=== PATIENT | female | born 1940 | race Caucasian/White ===

== ENCOUNTER 2017-04-04 17:46 | Inpatient (IN) | payer OTHER ==
--- NOTE | 2017-04-04 18:33 | PDOC ---
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 Patients history is translated by her daughter as patient is macedonian speaking. Patient states she used albuterol and ipratropium around 2pm with no relief. Patient was at rest when her symptoms presented. Patient also states she feels congested for 1 month and has had a productive cough with green sputum. Patient denies blood in sputum. Patient states she took 2 20mg prednisone today. Patient states she is not on home oxygen. Patient states she returned from [place] yesterday. Patient states her INR has been unstable. Patient denies fevers and chills but endorses diaphoresis. Patient also endorses occasional dizziness. Patient denies headache. Patient denies chest pain and palpitations. Patient endorses dysuria since earlier today. <Yudy Gray - Last Filed: 04/04/17 19:00> <Laura Mcclain - Last Filed: 04/04/17 23:35> <Marielena Hess - Last Filed: 04/05/17 05:38> - General Chief Complaint: Shortness of Breath Stated Complaint: ASTHMA Time Seen by Provider: 04/04/17 18:32 Past History - Past Medical History Anemia: No Asthma: Yes Cancer: No Cardiac Disorders: No CVA: Yes (tia) COPD: Yes CHF: No Dementia: No Diabetes: No GI Disorders: Yes (ULCER, HERNIA) Disorders: No HTN: Yes Hypercholesterolemia: Yes Liver Disease: No Suicide Attempt (Hx): No Seizures: Yes Thyroid Disease: Yes Other medical history: dvl ble - Surgical History Abdominal Surgery: No Appendectomy: No Cardiac Surgery: No Cholecystectomy: No Lung Surgery: No Neurologic Surgery: No Orthopedic Surgery: No - Immunization History Immunization Up to Date: No - Psycho/Social/Smoking Cessation Hx Anxiety: No Suicidal Ideation: No Smoking Status: No Smoking History: Never smoked Have you smoked in the past 12 months: No Number of Cigarettes Smoked Daily: 0 Information on smoking cessation initiated: No Hx Alcohol Use: No Drug/Substance Use Hx: No Substance Use Type: None Hx Substance Use Treatment: No <Ramirez Norton - Last Filed: 04/04/17 18:32> <Yudy Gray - Last Filed: 04/04/17 19:00> <Laura Mcclain - Last Filed: 04/04/17 23:35> <Marielena Hess - Last Filed: 04/05/17 05:38> - Past Medical History Allergies/Adverse Reactions: Allergies Allergy/AdvReac Type Severity Reaction Status Date / Time Penicillins Allergy Swelling Verified 04/04/17 17:50 Home Medications: Ambulatory Orders Cholecalciferol (Vitamin D3) [Vitamin D-3] 10,000 unit PO WEEKLY 04/01/13 Montelukast Na [Singulair -] 10 mg PO HS 04/01/13 Losartan/Hydrochlorothiazide [Losartan-Hctz 100-25 mg Tablet] 1 each PO DAILY Albuterol 0.083% Nebulizer Prabha [Ventolin 0.083% Nebulizer Soln -] 1 neb NEB Q6H PRN #20 vial 07/26/16 Levetiracetam [Keppra -] 750 mg PO BID 07/26/16 Levothyroxine [Synthroid -] 25 mcg PO DAILY 07/26/16 Benzonatate [Tessalon Perle -] 200 mg PO DAILY 08/09/16 Folic Acid 1 mg PO DAILY 08/09/16 Atorvastatin Ca [Lipitor] 40 mg PO HS #30 tablet 08/11/16 Doxycycline Hyclate 100 mg PO BID #10 capsule 08/11/16 Meclizine HCl [Antivert -] 12.5 mg PO TID #15 tablet 08/11/16 Nystatin 100,000 unit PO TID 04/05/17 Prednisone [Deltasone -] 20 mg PO DAILY 04/05/17 Warfarin Sodium [Coumadin] 2 mg PO ASDIR 04/05/17 Warfarin Sodium [Coumadin] 2.5 mg PO ASDIR 04/05/17 Review of Systems - Review of Systems Able to Perform ROS?: Yes Comments:: GENERAL/CONSTITUTIONAL: (+) diaphoresis No fever or chills. No weakness. HEAD, EYES, EARS, NOSE AND THROAT: No change in vision. No ear pain or discharge. No sore throat. CARDIOVASCULAR: No chest pain or shortness of breath. RESPIRATORY: (+) productive cough, SOB No wheezing, or hemoptysis. GASTROINTESTINAL: No nausea, vomiting, diarrhea or constipation. GENITOURINARY: (=) dysuria No frequency, or change in urination. MUSCULOSKELETAL: No joint or muscle swelling or pain. No neck or back pain. SKIN: No rash NEUROLOGIC: No headache, vertigo, loss of consciousness, or change in strength/ sensation. ENDOCRINE: No increased thirst. No abnormal weight change. HEMATOLOGIC/LYMPHATIC: (+) Hx of blood clots. No anemia, easy bleeding. ALLERGIC/IMMUNOLOGIC: No hives or skin allergy. <Yudy Gray - Last Filed: 04/04/17 19:00> *Physical Exam - Vital Signs Last Vital Signs Temp Pulse Resp BP Pulse Ox 98.0 F 100 H 18 152/62 98 04/04/17 17:51 04/04/17 17:51 04/04/17 17:51 04/04/17 17:51 04/04/17 17:51 <Ramirez Norton - Last Filed: 04/04/17 18:32> - Vital Signs Last Vital Signs Temp Pulse Resp BP Pulse Ox 98.0 F 100 H 18 152/62 98 04/04/17 17:51 04/04/17 17:51 04/04/17 17:51 04/04/17 17:51 04/04/17 17:51 - Physical Exam Comments: GENERAL: Awake, alert, and fully oriented, in no acute distress HEAD: No signs of trauma EYES: PERRLA, EOMI, sclera anicteric, conjunctiva clear ENT: Auricles normal inspection, hearing grossly normal, nares patent, oropharynx clear without exudates. Moist mucosa NECK: Normal ROM, supple, no lymphadenopathy, JVD, or masses LUNGS: Breath sounds equal, clear to auscultation bilaterally. No wheezes, and no crackles HEART: Tachycardia, regular rhythm, normal S1 and S2, no murmurs, rubs or gallops ABDOMEN: Soft, nontender, normoactive bowel sounds. No guarding, no rebound. No masses EXTREMITIES: Normal range of motion, +2 pitting edema in LE bilaterally. No clubbing or cyanosis. No cords, erythema, or tenderness NEUROLOGICAL: Cranial nerves II through XII grossly intact. Normal speech, normal gait SKIN: Warm, Dry, normal turgor, no rashes or lesions noted. <Yudy Gray - Last Filed: 04/04/17 19:00> - Vital Signs Last Vital Signs Temp Pulse Resp BP Pulse Ox 98.1 F 95 H 18 141/79 100 04/04/17 21:57 04/04/17 21:57 04/04/17 21:57 04/04/17 21:57 04/04/17 21:57 <McclainLaura - Last Filed: 04/04/17 23:35> - Vital Signs Last Vital Signs Temp Pulse Resp BP Pulse Ox 98.1 F 95 H 18 141/79 100 04/04/17 21:57 04/04/17 21:57 04/04/17 21:57 04/04/17 21:57 04/04/17 21:57 <Graciela Hessreen - Last Filed: 04/05/17 05:38> ED Treatment Course - LABORATORY CBC & Chemistry Diagram: 04/04/17 19:10 04/04/17 19:10 - ADDITIONAL ORDERS Additional order review: Laboratory Results 04/04/17 04/04/17 04/04/17 19:28 19:25 19:10 INR Puncture Site Right radial ABG pH 7.41 ABG pCO2 at Pt Temp 41.4 ABG pO2 at Pt Temp 59.3 L ABG HCO3 25.6 ABG O2 Sat (Measured) 91.1 ABG O2 Content 15.4 ABG Base Excess 1.3 Hay Test Positive Carboxyhemoglobin 1.6 Methemoglobin 0.6 O2 Delivery Device Room air Oxygen Flow Rate 21 Sodium 140 Potassium 4.3 Chloride 104 Carbon Dioxide 28 Anion Gap 8 BUN 22 H D Creatinine 0.9 Creat Clearance w eGFR > 60 Random Glucose 135 H Calcium 8.6 Total Bilirubin 0.3 D AST 24 D ALT 42 D Alkaline Phosphatase 80 Creatine Kinase 91 Troponin I < 0.02 Total Protein 6.2 L Albumin 3.3 L 04/04/17 19:10 INR 3.92 H D Puncture Site ABG pH ABG pCO2 at Pt Temp ABG pO2 at Pt Temp ABG HCO3 ABG O2 Sat (Measured) ABG O2 Content ABG Base Excess Hay Test Carboxyhemoglobin Methemoglobin O2 Delivery Device Oxygen Flow Rate Sodium Potassium Chloride Carbon Dioxide Anion Gap BUN Creatinine Creat Clearance w eGFR Random Glucose Calcium Total Bilirubin AST ALT Alkaline Phosphatase Creatine Kinase Troponin I Total Protein Albumin 04/04/17 19:10 RBC 4.45 MCV 87.7 MCHC 32.0 RDW 17.2 H D MPV 8.3 Neutrophils % 88.9 H D Lymphocytes % 6.1 L D Monocytes % 4.3 Eosinophils % 0.1 D Basophils % 0.6 - Medications Given in the ED: ED Medications Discontinued Medications Generic Name Dose Route Start Last Admin Trade Name Yahaira PRN Reason Stop Dose Admin Albuterol Sulfate 2 amp 04/04/17 19:01 04/04/17 19:29 Ventolin 0.083% Nebulizer Soln - NEB 04/04/17 19:02 2 amp ONCE ONE Administration Albuterol/Ipratropium 1 amp 04/04/17 19:01 04/04/17 19:16 Duoneb - NEB 04/04/17 19:02 1 amp ONCE ONE Administration Methylprednisolone Sodium Succinate 125 mg 04/04/17 19:01 04/04/17 19:17 Solu-Medrol - IVPB 04/04/17 19:02 125 mg ONCE ONE Administration <Laura Mcclain - Last Filed: 04/04/17 23:35> - LABORATORY CBC & Chemistry Diagram: 04/04/17 19:10 04/04/17 19:10 - ADDITIONAL ORDERS Additional order review: Laboratory Results 04/04/17 04/04/17 04/04/17 19:28 19:25 19:10 INR Puncture Site Right radial ABG pH 7.41 ABG pCO2 at Pt Temp 41.4 ABG pO2 at Pt Temp 59.3 L ABG HCO3 25.6 ABG O2 Sat (Measured) 91.1 ABG O2 Content 15.4 ABG Base Excess 1.3 Hay Test Positive Carboxyhemoglobin 1.6 Methemoglobin 0.6 O2 Delivery Device Room air Oxygen Flow Rate 21 Sodium 140 Potassium 4.3 Chloride 104 Carbon Dioxide 28 Anion Gap 8 BUN 22 H D Creatinine 0.9 Creat Clearance w eGFR > 60 Random Glucose 135 H Calcium 8.6 Total Bilirubin 0.3 D AST 24 D ALT 42 D Alkaline Phosphatase 80 Creatine Kinase 91 Troponin I < 0.02 Total Protein 6.2 L Albumin 3.3 L 04/04/17 19:10 INR 3.92 H D Puncture Site ABG pH ABG pCO2 at Pt Temp ABG pO2 at Pt Temp ABG HCO3 ABG O2 Sat (Measured) ABG O2 Content ABG Base Excess Hay Test Carboxyhemoglobin Methemoglobin O2 Delivery Device Oxygen Flow Rate Sodium Potassium Chloride Carbon Dioxide Anion Gap BUN Creatinine Creat Clearance w eGFR Random Glucose Calcium Total Bilirubin AST ALT Alkaline Phosphatase Creatine Kinase Troponin I Total Protein Albumin 04/04/17 19:10 RBC 4.45 MCV 87.7 MCHC 32.0 RDW 17.2 H D MPV 8.3 Neutrophils % 88.9 H D Lymphocytes % 6.1 L D Monocytes % 4.3 Eosinophils % 0.1 D Basophils % 0.6 - RADIOLOGY Radiology Studies Ordered: Category Date Time Status CHEST CTA [CT] Stat CT Scan 04/04/17 21:54 Ordered - Medications Given in the ED: ED Medications Discontinued Medications Generic Name Dose Route Start Last Admin Trade Name Freq PRN Reason Stop Dose Admin Albuterol Sulfate 2 amp 04/04/17 19:01 04/04/17 19:29 Ventolin 0.083% Nebulizer Soln - NEB 04/04/17 19:02 2 amp ONCE ONE Administration Albuterol/Ipratropium 1 amp 04/04/17 19:01 04/04/17 19:16 Duoneb - NEB 04/04/17 19:02 1 amp ONCE ONE Administration Methylprednisolone Sodium Succinate 125 mg 04/04/17 19:01 04/04/17 19:17 Solu-Medrol - IVPB 04/04/17 19:02 125 mg ONCE ONE Administration <Marielena Hess - Last Filed: 04/05/17 05:38> Medical Decision Making - Medical Decision Making Will obtain: -CBC -BMP -PT INR -Duonabs -ABG -ECG -CXR -Blood work Will reassess. <Yudy Gray - Last Filed: 04/04/17 19:00> - Medical Decision Making 04/04/17 23:35 Patient Name: Anali Cooper PRELIMINARY REPORT FROM [facility] EXAM : CTA CHEST with contrast INDICATION: Rule out PE IMAGES: [id number] EXAM DATE AND TIME: 2017-04-04 22:13:40.0 COMPARISON: NONE FINDINGS: . Negative for pulmonary embolus to the lobar level. More distal branches are nondiagnostic because of artifact. . Pulmonary venous congestion. Perihilar predominant groundglass densities could be from early pulmonary edema. Atypical infection or inflammation not excluded. Hypoventilated lungs. . Mild cardiomegaly. Coronary artery calcifications. Aortic and branch calcifications. Thoracic aorta without aneurysm or dissection. No chest adenopathy. No pleural effusion or pneumothorax. Calcified granuloma left lung. . Upper abdomen and osseous structures without acute abnormality. THIS DOCUMENT HAS BEEN ELECTRONICALLY SIGNED Tu Cain D.O. 04/04/2017 23:02 EST <Laura Mcclain - Last Filed: 04/04/17 23:35> - Medical Decision Making 04/04/17 21:59 Pt remains SOB, yet comfortable. She is from [place] and is lives in [place] and [facility]. SHe has no PMD here. She was recently on an 8 hr flight. Now with green discharge from her nasal sinuses. She has no calf swelling, but she complains of minimal pain in the left medial calf. Pt has a pulsox that shows hypoxemia. SHe has coumadin therapy for prior medical issues and her INR is 3+; essentially therapeutic for PE/DVT. Pt is PCN allergic and so she will be started on doxy for sinusitis/pneumonia. CTA ordered to r/o PE. Bun/Cr are normal range. Pt has rhonchi on the right chest; relatively clear on the left chest. 04/05/17 05:37 Patient Name: Anali Cooper PRELIMINARY REPORT FROM [facility] EXAM : CTA CHEST with contrast INDICATION: Rule out PE IMAGES: [id number] EXAM DATE AND TIME: 2017-04-04 22:13:40.0 COMPARISON: NONE FINDINGS: . Negative for pulmonary embolus to the lobar level. More distal branches are nondiagnostic because of artifact. . Pulmonary venous congestion. Perihilar predominant groundglass densities could be from early pulmonary edema. Atypical infection or inflammation not excluded. Hypoventilated lungs. . Mild cardiomegaly. Coronary artery calcifications. Aortic and branch calcifications. Thoracic aorta without aneurysm or dissection. No chest adenopathy. No pleural effusion or pneumothorax. Calcified granuloma left lung. . Upper abdomen and osseous structures without acute abnormality. THIS DOCUMENT HAS BEEN ELECTRONICALLY SIGNED Pt has no PE; she will be admitted for atypical pneumonia and IV abx; hospitalist aware. <Marielena Hess - Last Filed: 04/05/17 05:38> *DC/Admit/Observation/Transfer - Attestations Physician Attestion: 04/04/17 18:33 I, Dr. Ramirez Norton, attest that this document has been prepared under my direction and personally reviewed by me in its entirety. I further attest, that it accurately reflects all work, treatment, procedures and medical decision -making performed by me. <Ramirez Norton - Last Filed: 04/04/17 18:32> - Attestations Scribe Attestion: Documentation prepared by Yudy Gray, acting as medical support assistant for Ramirez Norton MD/DO. <Yudy Gray - Last Filed: 04/04/17 19:00> <Laura Mcclain - Last Filed: 04/04/17 23:35> - Discharge Dispostion Admit: Yes <Marielena Hess - Last Filed: 04/05/17 05:38> Diagnosis at time of Disposition: Atypical pneumonia, Dyspnea and respiratory abnormalities - Discharge Dispostion Condition at time of disposition: Guarded
[2017-04-04] MEDS ORDERED: ALBUTEROL SO4 0.083% IH SOL 2.5 MG/3 ML VIAL.NEB. NEB ONE ×2 (19:01→19:12)
[2017-04-04] MEDS ORDERED: methylPREDNISolone NA SUCC 125 MG/2 ML VIAL IVPB ONE (19:01)
[2017-04-04] MEDS ORDERED: ALBUTEROL SO4 2.5/IPRATROPIUM 0.5 INH SOL 3 ML VIAL.NEB. NEB ONE ×2 (19:01→19:12)
[2017-04-04] MEDS ORDERED: methylPREDNISolone NA SUCC 125 MG/2 ML VIAL ONE (19:12)
[2017-04-04 19:19] LABS: BASOPHIL 0.6 % (0-2.0); EOSINOPHIL 0.1 % (0-4.5); MCH 28.1 pg (25.7-33.7); MEAN CELL VOLUME 87.7 fl (80-96); MEAN PLT VOLUME 8.3 fl (7.5-11.1); NEUTROPHILS 88.9 % (42.8-82.8); PLATELET COUNT 228 K/MM3 (134-434); RDW 17.2 % (11.6-15.6)
[2017-04-04 19:33] LABS: ARTERIAL BLD GAS O2 SATURATION 91.1 % (90-98.9); ARTERIAL BLOOD GAS BASE EXCESS 1.3 meq/l (-2-2); ARTERIAL BLOOD GAS HCO3 25.6 meq/L (22-26); ARTERIAL BLOOD GAS pH 7.41 (7.35-7.45)
[2017-04-04 19:35] LABS: ALLENS TEST POSITIVE; ART PUNCT SITE RIGHT RADIAL; LPM/O2% 21; PT. ON O2? NO; TYPE OF O2 ROOM AIR
[2017-04-04 19:36] LABS: ARTERIAL BLOOD GAS PO2 59.3 mmHg (70-100)
[2017-04-04 19:38] LABS: METHEMOGLOBIN 0.6 % (0.4-1.5)
[2017-04-04 19:40] LABS: INR 3.92 (0.82-1.09); PROTHROMBIN TIME (PATIENT) 44.3 SEC (9.98-11.88)
[2017-04-04 19:46] LABS: ALBUMIN 3.3 g/dl (3.4-5.0); ANION GAP 8 (8-16); BILIRUBIN,TOTAL 0.3 mg/dL (0.2-1.0); CALCIUM 8.6 mg/dL (8.5-10.1); CO2 28 mmol/L (21-32); CREATININE 0.9 mg/dL (0.55-1.02); GLUCOSE,RANDOM 135 mg/dL (74-106); SGOT/AST 24 U/L (15-37); SGPT/ALT 42 U/L (12-78); TOT PROT 6.2 g/dl (6.4-8.2)
[2017-04-04 19:48] LABS: ALK PHOS 80 U/L (45-117); TROPONIN I < 0.02 ng/ml (0.00-0.05)
[2017-04-04] MEDS ORDERED: DOXYCYCLINE INJECTION 100 MG in DEXTROSE 5%-WATER - 150 ML IVPB ONE (21:55)
[2017-04-04] MEDS ORDERED: DOXYCYCLINE HYCLATE 100 MG VIAL ONE (22:01)
--- NOTE | 2017-04-04 23:40 | HP ---
CHIEF COMPLAINT: SOB, Nasal Congestion PCP: Not on Staff HISTORY OF PRESENT ILLNESS: This is a 76 y/o female with a past medical history of Asthma, HTN, HLD,DVTs ( on Coumadin), Seizure Disorder, PUD. Who presents to the emergency department with SOB x today. Patient is Latvian speaking her daughter was at bedside and translated. Patient reports SOB and dizziness this am. Patient reports having chronic rhinnorhea- green x 3 months with improvement. Patient used her nebulizer with little relief. Patient who is from [place], reports recent hospital stay- Observation 03/25 for Sinusitis, Rx Doxycycline currently taking. Patient denies fever, chills, CP, AP, N/V/D, constipation, dysuria. ER course was notable for: (1) CTA- neg PE, ? early Pneumonia (2) WBC 13.0 (3) ABG- PO2 59 Recent Travel: [place] last PAST MEDICAL HISTORY: Asthma HTn HLD DVTs PAST SURGICAL HISTORY: Breast Biopsy Hysterectomy Social History: Smoking: Never Alcohol: Denies Drugs: Denies Lives alone in [place], retired Family History: Allergies Penicillins Allergy (Verified 04/04/17 17:50) Swelling HOME MEDICATIONS: Home Medications Medication Instructions Recorded Cholecalciferol (Vitamin D3) 10,000 unit PO WEEKLY 04/01/13 [Vitamin D-3] Montelukast Na [Singulair -] 10 mg PO HS 04/01/13 Losartan/Hydrochlorothiazide 1 each PO DAILY 08/28/13 [Losartan-Hctz 100-25 mg Tablet] Albuterol 0.083% Nebulizer Prabha 1 neb NEB Q6H PRN #20 vial 07/26/16 [Ventolin 0.083% Nebulizer Soln -] Levetiracetam [Keppra -] 750 mg PO BID 07/26/16 Levothyroxine [Synthroid -] 25 mcg PO DAILY 07/26/16 Benzonatate [Tessalon Perle -] 200 mg PO DAILY 08/09/16 Folic Acid 1 mg PO DAILY 08/09/16 Atorvastatin Ca [Lipitor] 40 mg PO HS #30 tablet 08/11/16 Doxycycline Hyclate 100 mg PO BID #10 capsule 08/11/16 Meclizine HCl [Antivert -] 12.5 mg PO TID #15 tablet 11/15/16 Warfarin Sodium [Coumadin] 1 mg PO ASDIR #30 tablet 08/11/16 Warfarin Sodium [Coumadin] 2 mg PO ASDIR #30 tablet 08/11/16 REVIEW OF SYSTEMS CONSTITUTIONAL: Absent: fever, chills, diaphoresis, generalized weakness, malaise, loss of appetite, weight change HEENT: rhinorrhea Absent: rhinorrhea, nasal congestion, throat pain, throat swelling, difficulty swallowing, mouth swelling, ear pain, eye pain, visual changes CARDIOVASCULAR: Absent: chest pain, syncope, palpitations, irregular heart rate, lightheadedness , peripheral edema RESPIRATORY: cough, shortness of breath Absent: dyspnea with exertion, orthopnea, wheezing, stridor, hemoptysis GASTROINTESTINAL: Absent: abdominal pain, abdominal distension, nausea, vomiting, diarrhea, constipation, melena, hematochezia GENITOURINARY: Absent: dysuria, frequency, urgency, hesitancy, hematuria, flank pain, genital pain MUSCULOSKELETAL: Absent: myalgia, arthralgia, joint swelling, back pain, neck pain SKIN: Absent: rash, itching, pallor HEMATOLOGIC/IMMUNOLOGIC: Absent: easy bleeding, easy bruising, lymphadenopathy, frequent infections ENDOCRINE: Absent: unexplained weight gain, unexplained weight loss, heat intolerance, cold intolerance NEUROLOGIC: dizziness Absent: headache, focal weakness or paresthesias, unsteady gait, seizure, mental status changes, bladder or bowel incontinence PSYCHIATRIC: Absent: anxiety, depression, suicidal or homicidal ideation, hallucinations. PHYSICAL EXAMINATION Vital Signs - 24 hr 04/04/17 04/04/17 04/04/17 17:51 19:05 21:57 Temperature 98.0 F 98.1 F Pulse Rate 100 H 91 H Pulse Rate [ 91 H 95 H Right Apical] Respiratory 18 16 18 Rate Blood Pressure 152/62 Blood Pressure 113/67 141/79 [Left] O2 Sat by Pulse 98 96 100 Oximetry (%) GENERAL: Awake, alert, and fully oriented, in no acute distress. HEAD: Normal with no signs of trauma. EYES: Pupils equal, round and reactive to light, extraocular movements intact, sclera anicteric, conjunctiva clear. No lid lag. EARS, NOSE, THROAT: Ears normal, nares patent, oropharynx clear without exudates. Mild erythema to r-nare Dry mucous membranes. NECK: Normal range of motion, supple without lymphadenopathy, JVD, or masses. LUNGS: Breath sounds equal, clear to auscultation bilaterally. No wheezes, and no crackles. No accessory muscle use. HEART: Regular rate and rhythm, normal S1 and S2. No rub or gallop. Grade 2/6 systolic murmur ABDOMEN: Soft, nontender, not distended, normoactive bowel sounds, no guarding, no rebound, no masses. No hepatomegaly or splenomegaly. MUSCULOSKELETAL: Normal range of motion at all joints. No bony deformities or tenderness. No CVA tenderness. UPPER EXTREMITIES: 2+ pulses, warm, well-perfused. No cyanosis. No clubbing. No peripheral edema. LOWER EXTREMITIES: 2+ pulses, warm, well-perfused. No calf tenderness. +1 B/L peripheral edema. NEUROLOGICAL: Cranial nerves II-XII intact. Normal speech. Gait not observed. PSYCHIATRIC: Cooperative. Good eye contact. Appropriate mood and affect. SKIN: Warm, dry, normal turgor, no rashes or lesions noted, normal capillary refill. Laboratory Results - last 24 hr 04/04/17 04/04/17 04/04/17 19:10 19:10 19:10 WBC 13.0 H RBC 4.45 Hgb 12.5 Hct 39.1 MCV 87.7 MCH 28.1 MCHC 32.0 RDW 17.2 H D Plt Count 228 MPV 8.3 Neutrophils % 88.9 H D Lymphocytes % 6.1 L D Monocytes % 4.3 Eosinophils % 0.1 D Basophils % 0.6 INR 3.92 H D Puncture Site ABG pH ABG pCO2 at Pt Temp ABG pO2 at Pt Temp ABG HCO3 ABG O2 Sat (Measured) ABG O2 Content ABG Base Excess Hay Test Carboxyhemoglobin Methemoglobin O2 Delivery Device Oxygen Flow Rate Sodium 140 Potassium 4.3 Chloride 104 Carbon Dioxide 28 Anion Gap 8 BUN 22 H D Creatinine 0.9 Creat Clearance w eGFR > 60 Random Glucose 135 H Calcium 8.6 Total Bilirubin 0.3 D AST 24 D ALT 42 D Alkaline Phosphatase 80 Creatine Kinase 91 Troponin I < 0.02 Total Protein 6.2 L Albumin 3.3 L 04/04/17 04/04/17 19:25 19:28 WBC RBC Hgb Hct MCV MCH MCHC RDW Plt Count MPV Neutrophils % Lymphocytes % Monocytes % Eosinophils % Basophils % INR Puncture Site Right radial ABG pH 7.41 ABG pCO2 at Pt Temp 41.4 ABG pO2 at Pt Temp 59.3 L ABG HCO3 25.6 ABG O2 Sat (Measured) 91.1 ABG O2 Content 15.4 ABG Base Excess 1.3 Hay Test Positive Carboxyhemoglobin 1.6 Methemoglobin 0.6 O2 Delivery Device Room air Oxygen Flow Rate 21 Sodium Potassium Chloride Carbon Dioxide Anion Gap BUN Creatinine Creat Clearance w eGFR Random Glucose Calcium Total Bilirubin AST ALT Alkaline Phosphatase Creatine Kinase Troponin I Total Protein Albumin - RADIOLOGY 04/04/17 23:35 Patient Name: Anali Cooper PRELIMINARY REPORT FROM [facility] EXAM : CTA CHEST with contrast INDICATION: Rule out PE IMAGES: [id number] EXAM DATE AND TIME: 2017-04-04 22:13:40.0 COMPARISON: NONE FINDINGS: . Negative for pulmonary embolus to the lobar level. More distal branches are nondiagnostic because of artifact. . Pulmonary venous congestion. Perihilar predominant groundglass densities could be from early pulmonary edema. Atypical infection or inflammation not excluded. Hypoventilated lungs. . Mild cardiomegaly. Coronary artery calcifications. Aortic and branch calcifications. Thoracic aorta without aneurysm or dissection. No chest adenopathy. No pleural effusion or pneumothorax. Calcified granuloma left lung. . Upper abdomen and osseous structures without acute abnormality. THIS DOCUMENT HAS BEEN ELECTRONICALLY SIGNED Tu Cain D.O. 04/04/2017 23:02 EST ASSESSMENT/PLAN: This is a 76 y/o with a PMHx of: Asthma, HTN, HLD, Seizures, DVTs (on Coumadin) . Presents to the ED SOB, Cough, Rhinnorhea. Admitted M/S Atypical Pneumonia for further evaluation of their emergent condition. 1. Atypical Pneumonia - Likely secondary to bacterial infection - [id number] Score 2 - WBC 13.0 - Blood Culture-pending - Lactic Acid-pending - Appreciate ID Consult - Will d/c Doxycycline and start Levaquin for pseudomonal coverage - Monitor CBC - Urine Legionella - Sputum Culture - Monitor vitals 2. Hypoxemia - Likely secondary to Chronic lung disease - Spo2 98-100% RA - Continue to monitor, treat accordingly 3. Asthma - Duonebs - Continue home meds 4. Supratherapuetic INR - Series INRs - Hold Coumadin till 2.0-3.0 for DVT/PE 5. DVTs - INR 3.92 - Coumadin held tonight - Monitor INRs 6. Hypertension - Controlled - Monitor BP - Continue home meds 7. Hyperlipidemia - Continue home meds - Monitor LFTs 8. Seizures - Stable - Continue Keppra - Seizure Precautions 9. FEN - Tolerates PO Fluids - Replete lytes prn - Low Na, Low Cholesterol Diet 10. DVT Prophylaxis - OOB - SCDs - Hold ACs secondary to Supratherapuetic INR Code Status: Full Code Dispo: Requires Inpatient Care Problem List - Problem (1) Atypical pneumonia Code(s): J18.9 - PNEUMONIA, UNSPECIFIED ORGANISM (2) Dyspnea and respiratory abnormalities Code(s): R06.00 - DYSPNEA, UNSPECIFIED R06.89 - OTHER ABNORMALITIES OF BREATHING (3) Sinusitis Code(s): J32.9 - CHRONIC SINUSITIS, UNSPECIFIED (4) Hypertension Code(s): I10 - ESSENTIAL (PRIMARY) HYPERTENSION (5) DVT (deep venous thrombosis) Code(s): I82.409 - ACUTE EMBOLISM AND THOMBOS UNSP DEEP VN UNSP LOWER EXTREMITY (6) Seizure disorder Code(s): G40.909 - EPILEPSY, UNSP, NOT INTRACTABLE, WITHOUT STATUS EPILEPTICUS (7) Hyperlipemia Code(s): E78.5 - HYPERLIPIDEMIA, UNSPECIFIED (8) DVT prophylaxis Code(s): MUG9419 - Visit type - Emergency Visit Emergency Visit: Yes ED Registration Date: 04/04/17 Care time: The patient presented to the Emergency Department on the above date and was hospitalized for further evaluation of their emergent condition. - New Patient This patient is new to me today: Yes Date on this admission: 04/04/17 - Critical Care Critical Care patient: No
[2017-04-04] MEDS ORDERED: ALBUTEROL SO4 0.083% IH SOL 2.5 MG/3 ML VIAL.NEB. NEB PRN (23:47)
[2017-04-04] MEDS ORDERED: ALBUTEROL SO4 2.5/IPRATROPIUM 0.5 INH SOL 3 ML VIAL.NEB. NEB PRN (23:53)
[2017-04-05] MEDS ORDERED: AZITHROMYCIN IVPB 250 ML IVPB SCH (02:00)
[2017-04-05] MEDS ORDERED: SODIUM CHLORIDE 1,000 ML IV STA ×2 (02:45→16:49)
[2017-04-05] MEDS ORDERED: SODIUM CHLORIDE 500 ML IV STA ×3 (02:47→07:17)
[2017-04-05] MEDS: LEVOTHYROXINE NA 25 MCG TABLET (FP) PO SCH (06:05)
[2017-04-05] MEDS: NYSTATIN 500,000 UNITS/5 ML SUSPENSION PO SCH ×3 (06:05→21:11)
[2017-04-05 06:22] LABS: BASOPHIL 0.4 % (0-2.0); MCH 28.4 pg (25.7-33.7); MCHC 32.3 g/dl (32.0-36.0); MEAN CELL VOLUME 87.9 fl (80-96); MEAN PLT VOLUME 8.4 fl (7.5-11.1); NEUTROPHILS 91.6 % (42.8-82.8); PLATELET COUNT 259 K/MM3 (134-434); RDW 17.7 % (11.6-15.6); WHITE BLOOD COUNT 13.7 K/mm3 (4.0-10.0)
[2017-04-05] MEDS ORDERED: FUROSEMIDE 40 MG/4 ML INJECTABLE VIAL IVPUSH ONE (08:15)
[2017-04-05] MEDS: methylPREDNISolone NA SUCC 40 MG/1 ML VIAL IVPB SCH ×3 (08:33→21:10)
[2017-04-05 08:48] LABS: INR 3.51 (0.82-1.09); PROTHROMBIN TIME (PATIENT) 39.6 SEC (9.98-11.88)
[2017-04-05 09:57] LABS: ALBUMIN 3.2 g/dl (3.4-5.0); ANION GAP 8 (8-16); BILIRUBIN,TOTAL 0.4 mg/dL (0.2-1.0); CALCIUM 8.9 mg/dL (8.5-10.1); CO2 28 mmol/L (21-32); CREATININE 0.9 mg/dL (0.55-1.02); GLUCOSE,RANDOM 143 mg/dL (74-106); SGOT/AST 20 U/L (15-37); SGPT/ALT 40 U/L (12-78); TOT PROT 6.4 g/dl (6.4-8.2)
[2017-04-05] MEDS ORDERED: levETIRAcetam 500 MG TABLET (FP) PO SCH (10:00)
[2017-04-05] MEDS ORDERED: LEVOFLOXACIN 750 MG IVPB 150 ML IVPB SCH (10:00)
[2017-04-05] MEDS ORDERED: DOXYCYCLINE INJECTION 100 MG in DEXTROSE 5%-WATER - 100 ML IVPB SCH (10:00)
[2017-04-05] MEDS ORDERED: predniSONE 20 MG TABLET (UD) PO SCH (10:00)
[2017-04-05 10:06] LABS: ALK PHOS 75 U/L (45-117); THYROID STIMULATING HORMONE 0.34 uIU/ml (0.358-3.74)
[2017-04-05] MEDS ORDERED: levETIRAcetam 250 MG TABLET (FP) PO ONE ×2 (10:22→21:07)
[2017-04-05] MEDS ORDERED: levETIRAcetam 500 MG TABLET (FP) PO ONE ×2 (10:22→21:07)
[2017-04-05] MEDS: FOLIC ACID 1 MG TABLET (FP) PO SCH (10:27)
[2017-04-05] MEDS: HYDROCHLOROTHIAZIDE 25 MG TABLET (FP) PO SCH (10:27)
[2017-04-05] MEDS: LEVETIRACETAM 250 MG, LEVETIRACETAM 500 MG PO SCH ×2 (10:27→21:12)
[2017-04-05] MEDS: LOSARTAN POTASSIUM 50 MG TABLET (FP) PO SCH (10:27)
--- NOTE | 2017-04-05 10:32 | EKG ---
Test Reason : Blood Pressure : / mmHG Vent. Rate : 086 BPM Atrial Rate : 086 BPM P-R Int : 116 ms QRS Dur : 068 ms QT Int : 362 ms P-R-T Axes : 034 001 016 degrees QTc Int : 433 ms POOR DATA QUALITY, INTERPRETATION MAY BE ADVERSELY AFFECTED NORMAL SINUS RHYTHM NORMAL ECG WHEN COMPARED WITH ECG OF 09-AUG-2016 09:31, PREMATURE ATRIAL COMPLEXES ARE NO LONGER PRESENT Confirmed by ARTURO GUTIÉRREZ, GIANNA ([id number]) on 04/05/2017 10:31:54 AM Referred By: Confirmed By:GIANNA MORRIS MD
--- NOTE | 2017-04-05 11:14 | PN ---
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 She reports having fullness in her sinuses. Current Medications Generic Name Dose Route Start Last Admin Trade Name Yahaira PRN Reason Stop Dose Admin Albuterol/Ipratropium 1 amp 04/05/17 12:00 Duoneb - NEB QIDR LUIZA Atorvastatin Calcium 40 mg 04/05/17 22:00 Lipitor - PO HS LUIZA Folic Acid 1 mg 04/05/17 10:00 04/05/17 10:27 Folic Acid - PO 1 mg DAILY LUIZA Administration Hydrochlorothiazide 25 mg 04/05/17 10:00 04/05/17 10:27 Hctz - PO 25 mg DAILY LUIZA Administration Levofloxacin 150 mls @ 100 mls/hr 04/05/17 10:00 04/05/17 10:25 Levaquin 750 Mg Premixed Ivpb - IVPB 100 mls/hr DAILY LUIZA Administration Sodium Chloride 500 mls @ 75 mls/hr 04/05/17 07:17 04/05/17 08:29 Normal Saline - IV 04/05/17 13:56 75 mls/hr ASDIR STA Administration Levetiracetam 250 mg/ 750 mg 04/05/17 10:00 04/05/17 10:27 Levetiracetam 500 mg PO 750 mg BID LUIZA Administration Levothyroxine Sodium 25 mcg 04/05/17 07:00 04/05/17 06:05 Synthroid - PO 25 mcg DAILY@0700 LUIZA Administration Losartan Potassium 100 mg 04/05/17 10:00 04/05/17 10:27 Cozaar - PO 100 mg DAILY LUIZA Administration Methylprednisolone Sodium Succinate 40 mg 04/05/17 09:00 04/05/17 08:33 Solu-Medrol - IVPB 40 mg Q6H-IV LUIZA Administration Montelukast Sodium 10 mg 04/05/17 22:00 Singulair - PO HS LUIZA Non-Formulary Medication 200 mg 04/05/17 10:00 Benzonatate PO DAILY LUIZA Nystatin 100,000 units 04/05/17 06:00 04/05/17 06:05 Nystatin Oral Suspension - PO 100,000 units TID LUIZA Administration Objective: Vital Signs Period Temp Pulse Resp BP Sys/Sexton Pulse Ox Last 24 Hr 98.0 F-98.2 F 63-100 16-20 113-152/62-79 96-100 Physical Exam: General: cameroonian speaking, NAD HEENT: Frontal and maxillary sinus tenderness Lungs: B/l end expiratory wheezing Heart: RRR, S1S2 Abd: Soft, non-tender, non-distended. Normoactive bowel sounds Neuro: No focal deficits CBCD WBC 13.7 K/mm3 (4.0-10.0) H 04/05/17 05:40 RBC 4.44 M/mm3 (3.60-5.2) 04/05/17 05:40 Hgb 12.6 GM/dL (10.7-15.3) 04/05/17 05:40 Hct 39.1 % (32.4-45.2) 04/05/17 05:40 MCV 87.9 fl (80-96) 04/05/17 05:40 MCHC 32.3 g/dl (32.0-36.0) 04/05/17 05:40 RDW 17.7 % (11.6-15.6) H 04/05/17 05:40 Plt Count 259 K/MM3 (134-434) 04/05/17 05:40 MPV 8.4 fl (7.5-11.1) 04/05/17 05:40 CMP Sodium 140 mmol/L (136-145) 04/05/17 07:55 Potassium 4.9 mmol/L (3.5-5.1) 04/05/17 07:55 Chloride 104 mmol/L (98-107) 04/05/17 07:55 Carbon Dioxide 28 mmol/L (21-32) 04/05/17 07:55 Anion Gap 8 (8-16) 04/05/17 07:55 BUN 16 mg/dL (7-18) D 04/05/17 07:55 Creatinine 0.9 mg/dL (0.55-1.02) 04/05/17 07:55 Creat Clearance w eGFR > 60 (>60) 04/05/17 07:55 Random Glucose 143 mg/dL (74-106) H 04/05/17 07:55 Calcium 8.9 mg/dL (8.5-10.1) 04/05/17 07:55 Total Bilirubin 0.4 mg/dL (0.2-1.0) D 04/05/17 07:55 AST 20 U/L (15-37) 04/05/17 07:55 ALT 40 U/L (12-78) 04/05/17 07:55 Alkaline Phosphatase 75 U/L (45-117) 04/05/17 07:55 Total Protein 6.4 g/dl (6.4-8.2) 04/05/17 07:55 Albumin 3.2 g/dl (3.4-5.0) L 04/05/17 07:55 CARDIAC ENZYMES Creatine Kinase 91 IU/L (26-192) 04/04/17 19:10 Troponin I < 0.02 ng/ml (0.00-0.05) 04/04/17 19:10 Assessment: This is a 76 year old female with PMHx HTN, hyperlipidemia, asthma, 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 Plan: 1) ID: Sepsis 2/2 probable atypical pneumonia vs. sinusitis - Elevated WBC (infectious vs. steroid induced) - Lactic acidosis, continue IV fluids and monitor lung function closely - Sinus tenderness - Continue Levaquin - F/u sputum culture - F/u ID consult 2) Pulmonary: Acute asthma exacerbation - Chest CTA with perihilar predominant groundglass densities noted which could be from early pulmonary edema. Atypical infection/inflammation cannot be excluded. No gross pulmonary embolism is seen - Started on Solumedrol 40mg IVPB q8h - Duonebs - Patient takes Advair 500/50 bid, will start Symbicort while here in the hospital as Advair is non-formulary - Continue Singulair - O2 via NC prn - F/u pulmonary consult 3) Cardiology: Hx of multiple DVTs - On Coumadin at home, now with supratherapeutic INR - Hold Coumadin, restart once INR <3 HTN - Continue Losartan - Continue Hctz Hyperlipidemia - Continue Lipitor 4) Neuro: Seizure disorder - Continue Keppra 5) F/E/N: - Monitor electrolytes - Low sodium diet 6) Prophylaxis: - OOB ambulating - Hold all chemical DVT prophylaxis for supratherapeutic INR 7) Dispo: - Requires continued inpatient care CODE STATUS: FULL CODE Visit type - Emergency Visit Emergency Visit: Yes ED Registration Date: 04/04/17 Care time: The patient presented to the Emergency Department on the above date and was hospitalized for further evaluation of their emergent condition. - New Patient This patient is new to me today: Yes Date on this admission: 04/05/17 - Critical Care Critical Care patient: No
[2017-04-05] MEDS: ALBUTEROL SO4 2.5/IPRATROPIUM 0.5 INH SOL 3 ML VIAL.NEB. NEB SCH ×3 (11:22→23:47)
--- NOTE | 2017-04-05 14:29 | PN ---
Progress Note (short form) - Note Progress Note: PULMONARY CONSULTATION DICTATED 04/05/17 IMP ACUTE HYPOXEMIC RESPIRATORY FAILURE BILATERAL GROUND GLASS INFILTRATES ASTHMA EXACERBATION SINUSITIS H/O RECURRENT DVTS HTN HYPOTHYROID PUD PLAN IV ANTIBIOTICS INHALED BRONCHODILATORS IV STEROIDS SUPPLEMENTAL O2 SPUTUM C+S F/U CHEST X-RAY DR FLORES Problem List - Problems (1) Atypical pneumonia Code(s): J18.9 - PNEUMONIA, UNSPECIFIED ORGANISM (2) DVT prophylaxis Code(s): TCQ7682 - (3) Dyspnea and respiratory abnormalities Code(s): R06.00 - DYSPNEA, UNSPECIFIED R06.89 - OTHER ABNORMALITIES OF BREATHING (4) DVT (deep venous thrombosis) Code(s): I82.409 - ACUTE EMBOLISM AND THOMBOS UNSP DEEP VN UNSP LOWER EXTREMITY (5) Hyperlipemia Code(s): E78.5 - HYPERLIPIDEMIA, UNSPECIFIED (6) Hypertension Code(s): I10 - ESSENTIAL (PRIMARY) HYPERTENSION (7) Acute hypoxemic respiratory failure Code(s): J96.01 - ACUTE RESPIRATORY FAILURE WITH HYPOXIA
--- NOTE | 2017-04-05 17:51 | CONSULT ---
Consult Consult Specialty:: infectious diseases Reason for Consultation:: pneumonia - History of Present Illness Chief Complaint: weakness,cough,not feeling well History of Present Illness: 76 y/o female with a past medical history of Asthma, HTN, HLD,DVTs , Seizure Disorder, PUD. admitted with SOB Patient is Setswana speaking her daughter was at bedside and translated. Patient reports SOB and dizziness this am. . Patient used her nebulizer with little relief. Patient who is from [place], reports recent hospital stay- Observation 03/25 for Sinusitis, Rx Doxycycline currently taking. Patient denies fever, chills, CP, AP, N/V/D, constipation, dysuria. according to the daughter patient now mentions she has been sick for couple of days before coming from [place] and did not go to the hospital because she did not want to bother her son. she mentions that the patient is producing greenish sputum i ahve seen her work up and i have noticed that her wbc has increased as well as her lactic acid is still on the higher side also looks like her tongue is dry and has fungal infection patient mentions she has had rhinorrea for some time now and the color of it was green - History Source History Provided By: Family Member Limitations to Obtaining History: Language Barrier - Past Medical History [employer]: Yes: CVA, Seizure ( last seizure >10yrs ago), Vertigo Cardio/Vascular: Yes: HTN Pulmonary: Yes: Asthma Gastrointestinal: Yes: Gastritis, Peptic Ulcer Disease Musculoskeletal: Yes: Other (arthritis (type not specificed)) ENT: Yes: Sinusitis Endocrine: Yes: Hypothyroidism Additional Medical History: DVTs, HPL - Past Surgical History Past Surgical History: Yes: Breast Biopsy, Hysterectomy - Alcohol/Substance Use Hx Alcohol Use: No History of Substance Use: reports: None - Smoking History Smoking history: Never smoked Have you smoked in the past 12 months: No Aproximately how many cigarettes per day: 0 - Social History Occupation: retired 20 yrs ago History of Recent Travel: Yes (traveled from [place]) Home Medications - Allergies Allergies/Adverse Reactions: Allergies Allergy/AdvReac Type Severity Reaction Status Date / Time Penicillins Allergy Swelling Verified 04/04/17 17:50 - Home Medications Home Medications: Ambulatory Orders Cholecalciferol (Vitamin D3) [Vitamin D-3] 10,000 unit PO WEEKLY 04/01/13 Montelukast Na [Singulair -] 10 mg PO HS 04/01/13 Losartan/Hydrochlorothiazide [Losartan-Hctz 100-25 mg Tablet] 1 each PO DAILY Albuterol 0.083% Nebulizer Prabha [Ventolin 0.083% Nebulizer Soln -] 1 neb NEB Q6H PRN #20 vial 07/26/16 Levetiracetam [Keppra -] 750 mg PO BID 07/26/16 Levothyroxine [Synthroid -] 25 mcg PO DAILY 07/26/16 Benzonatate [Tessalon Perle -] 200 mg PO DAILY 08/09/16 Folic Acid 1 mg PO DAILY 08/09/16 Atorvastatin Ca [Lipitor] 40 mg PO HS #30 tablet 08/11/16 Doxycycline Hyclate 100 mg PO BID #10 capsule 08/11/16 Meclizine HCl [Antivert -] 12.5 mg PO TID #15 tablet 08/11/16 Nystatin 100,000 unit PO TID 04/05/17 Prednisone [Deltasone -] 20 mg PO DAILY 04/05/17 Warfarin Sodium [Coumadin] 2 mg PO ASDIR 04/05/17 Warfarin Sodium [Coumadin] 2.5 mg PO ASDIR 04/05/17 Family Disease History - Family Disease History Family Disease History: Diabetes: Father ( of SD), Mother ( of uterine cancer), Heart Disease: Father, Respiratory: Sister (asthma) Review of Systems - Review of Systems Constitutional: reports: Lethargy, Weakness Eyes: reports: No Symptoms HENT: reports: Nasal Congestion Neck: reports: No Symptoms Cardiovascular: reports: No Symptoms Respiratory: reports: Cough, SOB, Other Gastrointestinal: reports: No Symptoms Genitourinary: reports: No Symptoms Musculoskeletal: reports: No Symptoms Integumentary: reports: No Symptoms Neurological: reports: No Symptoms Endocrine: reports: No Symptoms Hematology/Lymphatic: reports: No Symptoms Psychiatric: reports: No Symptoms Physical Exam Vital Signs: Vital Signs Temperature 98.1 F 04/05/17 14:12 Pulse Rate 99 H 04/05/17 14:12 Respiratory Rate 20 04/05/17 14:12 Blood Pressure 136/66 04/05/17 14:12 O2 Sat by Pulse Oximetry (%) 95 04/05/17 09:00 Constitutional: Yes: Well Nourished, Calm, Mild Distress Eyes: Yes: Conjunctiva Clear HENT: Yes: Other (tenderness on the frontal sinus) Neck: Yes: Supple, Trachea Midline Cardiovascular: Yes: Regular Rate and Rhythm, S1, S2 Respiratory: Yes: Regular, On Nasal O2, Rhonchi Gastrointestinal: Yes: Normal Bowel Sounds, Soft Extremities: Yes: WNL Integumentary: Yes: WNL Neurological: Yes: Alert, Oriented Psychiatric: Yes: Alert, Oriented Labs: CBC, BMP 04/05/17 07:55 04/05/17 07:55 Imaging - Results Chest X-ray: Report Reviewed, Image Reviewed Cat Scan: Report Reviewed, Image Reviewed Assessment/Plan i ahambika looked at her cx report and also her leg and strp are negative looked at sputum cx 76 y/o with a PMHx of: Asthma, HTN, HLD, Seizures, DVTs (on Coumadin). Presents to the ED SOB, Cough, Rhinnorhea. Admitted M/S Atypical Pneumonia for further evaluation of their emergent condition. 1. Atypical Pneumonia 2. Hypoxemia 3. Asthma 4. Supratherapuetic INR 5. DVTs 6. Hypertension 7. Hyperlipidemia 8. Seizures 9 leukocytosis 10 lactic acidosis 11 thrush patient has receive doxy and levaquin and still she is not showing s/o of improvement plan will start patient on vanco and aztreonam also nystatin swish and spit continue to monitor wbc if wbc does not improve or patient starts spiking fever-- get ct of the sinuses
[2017-04-05] MEDS: AZTREONAM 1 GM in DEXTROSE 5%-WATER - 50 ML IVPB SCH (20:12)
[2017-04-05] MEDS: VANCOMYCIN 1,250 MG in DEXTROSE 5%-WATER - 250 ML IVPB SCH (20:16)
[2017-04-05] MEDS: MONTELUKAST NA 10 MG TABLET PO SCH (21:12)
[2017-04-05] MEDS: ATORVASTATIN CA 40 MG TABLET (FP) PO SCH (21:12)
[2017-04-05] MEDS: SODIUM CHLORIDE NASAL SPRAY 44 ML BOTTLE NS PRN (21:12)
[2017-04-05] MEDS: BUDESONIDE/FORMETEROL FUMARATE 160/4.5 mcg INHALER IH SCH (21:24)
--- NOTE | 2017-04-06 00:08 | CONS ---
DATE OF CONSULTATION: 04/05/2017 REFERRING PROVIDER: RANJIT Arriaga The patient is a 76-year-old female with a past medical history of hypertension, hyperlipidemia, asthma approximately 40 years, never been intubated, recurrent DVTs, maintained on chronic Coumadin, seizure disorder, peptic ulcer disease, admitted to [facility] with complaint of 1-week history of increasing shortness of breath and cough productive of green sputum. Patient states she started to develop the above symptom approximately a week ago Wednesday. At the time, she started developing a nonproductive cough. Over the time, she started complaining of increasing shortness of breath and mild chest congestion. The past 2 days though, she started noticing increasing cough productive of green sputum, at which time she presented to the emergency room. Of note, the patient currently resides in [place], and was and arrived in [place] a few days ago to visit a daughter. She was admitted. On admission, she had a CAT scan of the chest performed, which revealed perihilar ground-glass opacities, possibly pneumonia versus atypical pneumonia. She was placed on broad-spectrum antibiotics and inhaled bronchodilator. She is a nonsmoker. There is no history of occupational exposure to chemicals or fumes. She has a history of DVT. Denies any history of respiratory failure in the past, no ventilatory support. On admission, she was also noted to be hypoxemic on a blood gas. She denies any hemoptysis. She did state that she had some sinus congestion as well as a nosebleed. She denies any hemoptysis. No history of pneumonia or TB in the past. Past medical history, again, includes hyperlipidemia, hypertension, asthma, recurrent DVTs, maintained on anticoagulation, seizure disorder, and peptic ulcer disease. Medications prior to admission include Vitamin D3, Singulair, losartan, albuterol, Keppra, Synthroid, Tessalon Perles, Lipitor, Antivert, nystatin, prednisone, and Coumadin. REVIEW OF SYSTEMS: Positive cough, positive sputum. No fever, no chills, no hemoptysis. No chest pain, no palpitations. No abdominal pain. Current medication includes Symbicort 160/4.5, Solu-Medrol 40 q.6, Cozaar, Levaquin 750 daily, DuoNeb, normal saline, Singulair, Lipitor, hydrochlorothiazide, Synthroid, and folic acid. PHYSICAL EXAMINATION: General: The patient is an elderly female, awake, alert, in no acute distress. Vital Signs: She is currently afebrile. Blood pressure is 136/66. Respiratory rate 20. O2 saturation is 95% on nasal O2. HEENT: Normocephalic, atraumatic. Neck: Supple. Heart: Regular, S1, S2. Chest: Few scattered bilateral wheezes. Abdomen: Soft. Bowel sounds are positive. Extremities: No cyanosis. There is mild edema of lower extremities, right greater than the left. There is mild swelling in the lower extremities, right greater than left. LABORATORY DATA: Blood gas: pH 7.41, pCO2 of 41, pO2 of 59, bicarbonate 25, saturation of 91.1. WBC is 13.7, hemoglobin 12.6, hematocrit 39.1, platelet count 259,000. INR is 3.51. Chest x-ray reveals ground-glass infiltrates. IMPRESSION: 1. Acute hypoxemic respiratory failure, likely pneumonia, possible atypical, possible bronchitis. 2. Asthma exacerbation secondary to pneumonia, secondary to infectious etiology. 3. Hypertension. 4. Recurrent deep vein thromboses. 5. History of hypothyroidism. PLAN: Continue antibiotic therapy. Continue IV steroids, inhaled bronchodilators, supplemental O2. Followup chest x-ray, sputum for C&S. Monitor peak flow. cold agglutinin, Legionella antigen. VIDHI FLORES M.D. [id number]
[2017-04-06] MEDS: AZTREONAM 1 GM in DEXTROSE 5%-WATER - 50 ML IVPB SCH ×3 (01:52→18:29)
[2017-04-06] MEDS: methylPREDNISolone NA SUCC 40 MG/1 ML VIAL IVPB SCH ×4 (02:28→21:43)
[2017-04-06] MEDS ORDERED: SODIUM CHLORIDE 500 ML IV STA (04:06)
[2017-04-06] MEDS: ALBUTEROL SO4 2.5/IPRATROPIUM 0.5 INH SOL 3 ML VIAL.NEB. NEB SCH ×3 (05:00→18:37)
[2017-04-06] MEDS: NYSTATIN 500,000 UNITS/5 ML SUSPENSION PO SCH ×3 (06:15→21:44)
[2017-04-06] MEDS: LEVOTHYROXINE NA 25 MCG TABLET (FP) PO SCH (06:15)
[2017-04-06 06:49] LABS: BASOPHIL 0.3 % (0-2.0); EOSINOPHIL 0.4 % (0-4.5); MCH 28.6 pg (25.7-33.7); MCHC 32.7 g/dl (32.0-36.0); MEAN CELL VOLUME 87.6 fl (80-96); MEAN PLT VOLUME 8.3 fl (7.5-11.1); NEUTROPHILS 93.5 % (42.8-82.8); PLATELET COUNT 231 K/MM3 (134-434); RDW 17.4 % (11.6-15.6); WHITE BLOOD COUNT 17.2 K/mm3 (4.0-10.0)
[2017-04-06 07:00] LABS: INR 3.52 (0.82-1.09); PROTHROMBIN TIME (PATIENT) 39.7 SEC (9.98-11.88)
[2017-04-06 07:10] LABS: ANION GAP 7 (8-16); CALCIUM 9.2 mg/dL (8.5-10.1); CO2 28 mmol/L (21-32); CREATININE 0.9 mg/dL (0.55-1.02); GLUCOSE,RANDOM 205 mg/dL (74-106)
[2017-04-06] MEDS ORDERED: levETIRAcetam 500 MG TABLET (FP) PO ONE ×2 (10:17→21:37)
[2017-04-06] MEDS ORDERED: levETIRAcetam 250 MG TABLET (FP) PO ONE ×2 (10:17→21:37)
[2017-04-06] MEDS: VANCOMYCIN 1,250 MG in DEXTROSE 5%-WATER - 250 ML IVPB SCH (10:21)
[2017-04-06] MEDS: LEVETIRACETAM 250 MG, LEVETIRACETAM 500 MG PO SCH ×2 (10:21→21:43)
[2017-04-06] MEDS: LOSARTAN POTASSIUM 50 MG TABLET (FP) PO SCH (10:22)
[2017-04-06] MEDS: HYDROCHLOROTHIAZIDE 25 MG TABLET (FP) PO SCH (10:22)
[2017-04-06] MEDS: BUDESONIDE/FORMETEROL FUMARATE 160/4.5 mcg INHALER IH SCH ×2 (10:23→21:44)
[2017-04-06] MEDS: FOLIC ACID 1 MG TABLET (FP) PO SCH (10:23)
[2017-04-06] MEDS ORDERED: SODIUM CHLORIDE 1,000 ML IV STA (11:30)
--- NOTE | 2017-04-06 12:06 | PN ---
Progress Note (short form) - Note Progress Note: Subjective: The patient was seen and examined at the bedside, she reports feeling better today Lactic acid remains elevated, will continue fluid boluses. Current Medications Generic Name Dose Route Start Last Admin Trade Name Yahaira PRN Reason Stop Dose Admin Albuterol/Ipratropium 1 amp 04/05/17 12:00 04/06/17 11:24 Duoneb - NEB 1 amp QIDR LUIZA Administration Atorvastatin Calcium 40 mg 04/05/17 22:00 04/05/17 21:12 Lipitor - PO 40 mg HS LUIZA Administration Budesonide/Formoterol Fumarate 2 puff 04/05/17 22:00 04/06/17 10:23 Symbicort 160/4.5mcg - IH 2 puff BID LUIZA Administration Folic Acid 1 mg 04/05/17 10:00 04/06/17 10:23 Folic Acid - PO 1 mg DAILY LUIZA Administration Hydrochlorothiazide 25 mg 04/05/17 10:00 04/06/17 10:22 Hctz - PO 25 mg DAILY LUIZA Administration Sodium Chloride 500 mls @ 125 mls/hr 04/05/17 07:17 Normal Saline - IV 04/05/17 11:16 ASDIR STA Aztreonam 1 gm/ Dextrose 50 mls @ 100 mls/hr 04/05/17 18:15 04/06/17 10:21 IVPB 100 mls/hr Q8H-IV LUIZA Administration Protocol Vancomycin HCl 1,250 mg/ 250 mls @ 166.667 mls/hr 04/05/17 18:15 04/06/17 10:21 Dextrose IVPB 166.667 mls/hr DAILY LUIZA Administration Protocol Sodium Chloride 1,000 mls @ 500 mls/hr 04/06/17 11:30 Normal Saline - IV 04/06/17 13:29 ASDIR STA Levetiracetam 250 mg/ 750 mg 04/05/17 10:00 04/06/17 10:21 Levetiracetam 500 mg PO 750 mg BID LUIZA Administration Levothyroxine Sodium 25 mcg 04/05/17 07:00 04/06/17 06:15 Synthroid - PO 25 mcg DAILY@0700 LUIZA Administration Losartan Potassium 100 mg 04/05/17 10:00 04/06/17 10:22 Cozaar - PO 100 mg DAILY LUIZA Administration Methylprednisolone Sodium Succinate 40 mg 04/05/17 09:00 04/06/17 10:20 Solu-Medrol - IVPB 40 mg Q6H-IV LUIZA Administration Montelukast Sodium 10 mg 04/05/17 22:00 04/05/17 21:12 Singulair - PO 10 mg HS LUIZA Administration Benzonatate 200mg- 200 mg 04/05/17 10:00 Patient's Own PO Medication (Non- DAILY LUIZA Formulary) Nystatin 100,000 units 04/05/17 06:00 04/06/17 06:15 Nystatin Oral Suspension - PO 100,000 units TID LUIZA Administration Sodium Chloride 2 spray 04/05/17 17:27 04/05/17 21:12 [place] Nasal [place] - NS 2 spray BID PRN Administration NASAL CONGESTION Objective: Vital Signs Period Temp Pulse Resp BP Sys/[place]on Pulse Ox Last 24 Hr 97.7 F-98.7 F 76-99 20-20 100-150/55-92 94 Physical Exam: General: estonian speaking, NAD HEENT: Frontal and maxillary sinus tenderness Lungs: Forceful upper airway end expiratory wheezing Heart: RRR, S1S2 Abd: Soft, non-tender, non-distended. Normoactive bowel sounds Neuro: No focal deficits CBCD WBC 17.2 K/mm3 (4.0-10.0) H 04/06/17 05:50 RBC 4.35 M/mm3 (3.60-5.2) 04/06/17 05:50 Hgb 12.4 GM/dL (10.7-15.3) 04/06/17 05:50 Hct 38.0 % (32.4-45.2) 04/06/17 05:50 MCV 87.6 fl (80-96) 04/06/17 05:50 MCHC 32.7 g/dl (32.0-36.0) 04/06/17 05:50 RDW 17.4 % (11.6-15.6) H 04/06/17 05:50 Plt Count 231 K/MM3 (134-434) 04/06/17 05:50 MPV 8.3 fl (7.5-11.1) 04/06/17 05:50 CMP Sodium 141 mmol/L (136-145) 04/06/17 05:50 Potassium 5.0 mmol/L (3.5-5.1) 04/06/17 05:50 Chloride 106 mmol/L (98-107) 04/06/17 05:50 Carbon Dioxide 28 mmol/L (21-32) 04/06/17 05:50 Anion Gap 7 (8-16) L 04/06/17 05:50 BUN 22 mg/dL (7-18) H D 04/06/17 05:50 Creatinine 0.9 mg/dL (0.55-1.02) 04/06/17 05:50 Creat Clearance w eGFR > 60 (>60) 04/05/17 07:55 Random Glucose 205 mg/dL (74-106) H D 04/06/17 05:50 Calcium 9.2 mg/dL (8.5-10.1) 04/06/17 05:50 Total Bilirubin 0.4 mg/dL (0.2-1.0) D 04/05/17 07:55 AST 20 U/L (15-37) 04/05/17 07:55 ALT 40 U/L (12-78) 04/05/17 07:55 Alkaline Phosphatase 75 U/L (45-117) 04/05/17 07:55 Total Protein 6.4 g/dl (6.4-8.2) 04/05/17 07:55 Albumin 3.2 g/dl (3.4-5.0) L 04/05/17 07:55 CARDIAC ENZYMES Creatine Kinase 91 IU/L (26-192) 04/04/17 19:10 Troponin I < 0.02 ng/ml (0.00-0.05) 04/04/17 19:10 Microbiology 04/05/17 06:00 Sputum - Expectorated Gram Stain - Final 04/05/17 06:00 Urine For Antigen Detection Legionella Antigen - Final 04/05/17 06:00 Urine For Antigen Detection Streptococcus pneumoniae Antigen (M - Final Assessment: This is a 76 year old female with PMHx HTN, hyperlipidemia, asthma, 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 Plan: 1) ID: Sepsis 2/2 probable atypical pneumonia vs. sinusitis - Elevated WBC (infectious vs. steroid induced) - Lactic acidosis, continue IV fluids and monitor lung function closely - Sinus tenderness - Abx changed to vanco and aztreonam by ID - Sputum culture pending - Appreciate ID consult 2) Pulmonary: Acute asthma exacerbation - Chest CTA with perihilar predominant groundglass densities noted which could be from early pulmonary edema. Atypical infection/inflammation cannot be excluded. No gross pulmonary embolism is seen - Continue on Solumedrol 40mg IVPB q8h - Duonebs - Continue Symbicort while here, discharge out on home Advair - Continue Singulair - O2 via NC prn - Appreciate pulmonary consult 3) Cardiology: Hx of multiple DVTs - On Coumadin at home, INR remains supratherapeutic - Hold Coumadin, restart once INR <3 HTN - Continue Losartan - Continue Hctz Hyperlipidemia - Continue Lipitor 4) Neuro: Seizure disorder - Continue Keppra 5) F/E/N: - Monitor electrolytes - Low sodium diet 6) Prophylaxis: - OOB ambulating - Hold all chemical DVT prophylaxis for supratherapeutic INR 7) Dispo: - Requires continued inpatient care CODE STATUS: FULL CODE Visit type - Emergency Visit Emergency Visit: Yes ED Registration Date: 04/04/17 Care time: The patient presented to the Emergency Department on the above date and was hospitalized for further evaluation of their emergent condition. - New Patient This patient is new to me today: No - Critical Care Critical Care patient: No
--- NOTE | 2017-04-06 15:12 | PN ---
Progress Note, Physician History of Present Illness: feeling better still c/o of sinus pain with discharge lactic acid still high - Current Medication List Current Medications: Active Medications Albuterol/Ipratropium (Duoneb -) 1 amp NEB QIDR [facility] Last Admin: 04/06/17 11:24 Dose: 1 amp Atorvastatin Calcium (Lipitor -) 40 mg PO HS [facility] Last Admin: 04/05/17 21:12 Dose: 40 mg Budesonide/Formoterol Fumarate (Symbicort 160/4.5mcg -) 2 puff IH BID [facility] Last Admin: 04/06/17 10:23 Dose: 2 puff Folic Acid (Folic Acid -) 1 mg PO DAILY [facility] Last Admin: 04/06/17 10:23 Dose: 1 mg Hydrochlorothiazide (Hctz -) 25 mg PO DAILY [facility] Last Admin: 04/06/17 10:22 Dose: 25 mg Sodium Chloride (Normal Saline -) 500 mls @ 125 mls/hr IV ASDIR STA Stop: 04/05/17 11:16 Aztreonam 1 gm/ Dextrose 50 mls @ 100 mls/hr IVPB Q8H-IV [facility] PRN Reason: Protocol Last Admin: 04/06/17 10:21 Dose: 100 mls/hr Vancomycin HCl 1,250 mg/ (Dextrose) 250 mls @ 166.667 mls/hr IVPB DAILY [facility] PRN Reason: Protocol Last Admin: 04/06/17 10:21 Dose: 166.667 mls/hr Levetiracetam 250 mg/ (Levetiracetam 500 mg) 750 mg PO BID [facility] Last Admin: 04/06/17 10:21 Dose: 750 mg Levothyroxine Sodium (Synthroid -) 25 mcg PO DAILY@0700 [facility] Last Admin: 04/06/17 06:15 Dose: 25 mcg Losartan Potassium (Cozaar -) 100 mg PO DAILY [facility] Last Admin: 04/06/17 10:22 Dose: 100 mg Methylprednisolone Sodium Succinate (Solu-Medrol -) 40 mg IVPB Q6H-IV [facility] Last Admin: 04/06/17 14:13 Dose: 40 mg Montelukast Sodium (Singulair -) 10 mg PO HS [facility] Last Admin: 04/05/17 21:12 Dose: 10 mg Benzonatate 200mg- Patient's Own Medication (Non- Formulary) 200 mg PO DAILY [facility] Nystatin (Nystatin Oral Suspension -) 100,000 units PO TID [facility] Last Admin: 04/06/17 14:13 Dose: 100,000 units Sodium Chloride ([place] Nasal [place] -) 2 spray NS BID PRN PRN Reason: NASAL CONGESTION Last Admin: 04/05/17 21:12 Dose: 2 spray - Objective Vital Signs: Vital Signs Temperature 98.3 F 04/06/17 14:19 Pulse Rate 95 H 04/06/17 14:19 Respiratory Rate 20 04/06/17 14:19 Blood Pressure 109/69 04/06/17 14:19 O2 Sat by Pulse Oximetry (%) 94 L 04/06/17 09:00 Constitutional: Yes: No Distress, Calm Cardiovascular: Yes: Regular Rate and Rhythm Respiratory: Yes: Regular, On Nasal O2, Poor Air Entry Gastrointestinal: Yes: Normal Bowel Sounds, Soft Musculoskeletal: Yes: WNL Extremities: Yes: WNL Neurological: Yes: Alert, Oriented Psychiatric: Yes: Alert Labs: CBC, BMP 04/06/17 05:50 04/06/17 05:50 INR, PTT INR 3.52 (0.82-1.09) H 04/06/17 05:50 Assessment/Plan 76 y/o with a PMHx of: Asthma, HTN, HLD, Seizures, DVTs (on Coumadin). Presents to the ED SOB, Cough, Rhinnorhea. Admitted M/S Atypical Pneumonia for further evaluation of their emergent condition. 1. Atypical Pneumonia 2. Hypoxemia 3. Asthma 4. Supratherapuetic INR 5. DVTs 6. Hypertension 7. Hyperlipidemia 8. Seizures 9 leukocytosis 10 lactic acidosis 11 thrush plan continue current abx incentive freddy monitor lactic acid if lactic acid does not go down then will have to figure out why is her lactic acid high wbc probably high due to steroids but monitor if goes still higher then orbit ct
--- NOTE | 2017-04-06 16:49 | PN ---
Progress Note (short form) - Note Progress Note: Remains with Sinus ROLLINS and SOB. Dizziness with sitting up and standing. No CP. Daughter is at the bedside for translation. Intake & Output 04/03/17 04/04/17 04/05/17 04/06/17 23:59 23:59 23:59 23:59 Intake Total 2024 1250 Balance 2024 1250 Weight 170 lb 176 lb 4 oz 81 lb 6 oz Last Vital Signs Temp Pulse Resp BP Pulse Ox 98.3 F 95 H 20 109/69 94 L 04/06/17 14:19 04/06/17 14:19 04/06/17 14:19 04/06/17 14:19 04/06/17 09:00 Active Medications Albuterol/Ipratropium (Duoneb -) 1 amp NEB QIDR [facility] Last Admin: 04/06/17 11:24 Dose: 1 amp Atorvastatin Calcium (Lipitor -) 40 mg PO HS [facility] Last Admin: 04/05/17 21:12 Dose: 40 mg Budesonide/Formoterol Fumarate (Symbicort 160/4.5mcg -) 2 puff IH BID [facility] Last Admin: 04/06/17 10:23 Dose: 2 puff Folic Acid (Folic Acid -) 1 mg PO DAILY [facility] Last Admin: 04/06/17 10:23 Dose: 1 mg Hydrochlorothiazide (Hctz -) 25 mg PO DAILY [facility] Last Admin: 04/06/17 10:22 Dose: 25 mg Sodium Chloride (Normal Saline -) 500 mls @ 125 mls/hr IV ASDIR STA Stop: 04/05/17 11:16 Aztreonam 1 gm/ Dextrose 50 mls @ 100 mls/hr IVPB Q8H-IV [facility] PRN Reason: Protocol Last Admin: 04/06/17 10:21 Dose: 100 mls/hr Vancomycin HCl 1,250 mg/ (Dextrose) 250 mls @ 166.667 mls/hr IVPB DAILY [facility] PRN Reason: Protocol Last Admin: 04/06/17 10:21 Dose: 166.667 mls/hr Levetiracetam 250 mg/ (Levetiracetam 500 mg) 750 mg PO BID [facility] Last Admin: 04/06/17 10:21 Dose: 750 mg Levothyroxine Sodium (Synthroid -) 25 mcg PO DAILY@0700 [facility] Last Admin: 04/06/17 06:15 Dose: 25 mcg Losartan Potassium (Cozaar -) 100 mg PO DAILY [facility] Last Admin: 04/06/17 10:22 Dose: 100 mg Methylprednisolone Sodium Succinate (Solu-Medrol -) 40 mg IVPB Q6H-IV [facility] Last Admin: 04/06/17 14:13 Dose: 40 mg Montelukast Sodium (Singulair -) 10 mg PO HS [facility] Last Admin: 04/05/17 21:12 Dose: 10 mg Benzonatate 200mg- Patient's Own Medication (Non- Formulary) 200 mg PO DAILY [facility] Nystatin (Nystatin Oral Suspension -) 100,000 units PO TID [facility] Last Admin: 04/06/17 14:13 Dose: 100,000 units Sodium Chloride ([place] Nasal [place] -) 2 spray NS BID PRN PRN Reason: NASAL CONGESTION Last Admin: 04/05/17 21:12 Dose: 2 spray Constitutional: Yes: Mildly tachypneic Eyes: Yes: Conjunctiva Clear HENT: Yes: (+) sinus tenderness Neck: Yes: Supple, Trachea Midline Cardiovascular: Yes: Regular Rate and Rhythm, S1, S2 Respiratory: Yes: Bilateral rhonchi, (-) wheeze Gastrointestinal: Yes: Normal Bowel Sounds, Soft Extremities: Yes: WNL Integumentary: Yes: WNL Neurological: Yes: Alert, Oriented Psychiatric: Yes: Alert, Oriented Labs: Laboratory Results - last 24 hr 04/05/17 04/05/17 04/06/17 17:45 22:50 05:50 WBC RBC Hgb Hct MCV MCH MCHC RDW Plt Count MPV Neutrophils % Lymphocytes % Monocytes % Eosinophils % Basophils % INR Sodium 141 Potassium 5.0 Chloride 106 Carbon Dioxide 28 Anion Gap 7 L BUN 22 H D Creatinine 0.9 Random Glucose 205 H D Lactic Acid 4.8 H* 4.1 H* Calcium 9.2 04/06/17 04/06/17 04/06/17 05:50 05:50 05:50 WBC 17.2 H RBC 4.35 Hgb 12.4 Hct 38.0 MCV 87.6 MCH 28.6 MCHC 32.7 RDW 17.4 H Plt Count 231 MPV 8.3 Neutrophils % 93.5 H Lymphocytes % 3.2 L D Monocytes % 2.6 L D Eosinophils % 0.4 D Basophils % 0.3 INR 3.52 H Sodium Potassium Chloride Carbon Dioxide Anion Gap BUN Creatinine Random Glucose Lactic Acid 3.7 H* Calcium Problem List - Problems (1) Atypical pneumonia Code(s): J18.9 - PNEUMONIA, UNSPECIFIED ORGANISM (2) DVT prophylaxis Code(s): [id number] - (3) Dyspnea and respiratory abnormalities Code(s): R06.00 - DYSPNEA, UNSPECIFIED R06.89 - OTHER ABNORMALITIES OF BREATHING (4) DVT (deep venous thrombosis) Code(s): I82.409 - ACUTE EMBOLISM AND THOMBOS UNSP DEEP VN UNSP LOWER EXTREMITY (5) Hyperlipemia Code(s): E78.5 - HYPERLIPIDEMIA, UNSPECIFIED (6) Hypertension Code(s): I10 - ESSENTIAL (PRIMARY) HYPERTENSION (7) Acute hypoxemic respiratory failure Code(s): J96.01 - ACUTE RESPIRATORY FAILURE WITH HYPOXIA ACUTE HYPOXEMIC RESPIRATORY FAILURE BILATERAL GROUND GLASS INFILTRATES -> (?) PULMONARY VASCULAR CONGESTION (? ) INTERSTITIAL PROCESS ASTHMA EXACERBATION SINUSITIS H/O RECURRENT DVTS HTN HYPOTHYROID PUD PLAN IV ANTIBIOTICS PER ID INHALED BRONCHODILATORS IV STEROIDS SUPPLEMENTAL O2 SPUTUM C+S NASAL SPRAYS CHECK ECHO FOLLOW LACTIC ACID DR MIRANDA
[2017-04-06] MEDS: ATORVASTATIN CA 40 MG TABLET (FP) PO SCH (21:44)
[2017-04-06] MEDS: MONTELUKAST NA 10 MG TABLET PO SCH (21:44)
[2017-04-06] MEDS: SODIUM CHLORIDE NASAL SPRAY 44 ML BOTTLE NS PRN (21:45)
[2017-04-06] MEDS ORDERED: ALBUTEROL SO4 2.5/IPRATROPIUM 0.5 INH SOL 3 ML VIAL.NEB. NEB ONE (22:11)
[2017-04-06] MEDS ORDERED: morphine CARPU-JECT 2 MG/1 ML DISP.SYRIN IVPUSH ONE (22:20)
[2017-04-06] MEDS ORDERED: NITROGLYCERIN SUBLINGUAL 1/200 0.3 MG BTL SL ONE (22:41)
[2017-04-06] MEDS ORDERED: NITROGLYCERIN SUBLINGUAL 1/150 0.4 MG TAB SL ONE (22:47)
--- NOTE | 2017-04-06 23:12 | HOSP ---
Subjective - Review of Symptoms Events since last encounter: Hospitalist Encounter Notified by primary RN, that the patient was having chest pressure. Orders placed by Resident for stat EKG, Portable CXR, Morphine IV, NTG SL x1 Arrived to bedside patient is awake, alert, with labored breathing, expiratory wheezing. Patient reports chest pressure to midsternum, with SOB. Trop I-pending EKG reviewed, no acute changes Chest Xray image reviewed- slight increase markings, awaiting official report Will give Lasix After review of labs:Trop I- negative, LA 4.9 Patient's breathing improved post medications Will give fluid bolus and repeat LA Continue to monitor Will inform Day [employer]PER[employer] Hospitalist of overnight events Pulmonary: Yes: Dyspnea Cardiovascular: Yes: Chest Pain Physical Examination Vital Signs: Vital Signs Temperature 98.1 F 04/06/17 18:55 Pulse Rate 91 H 04/06/17 18:55 Respiratory Rate 20 04/06/17 18:55 Blood Pressure 102/68 04/06/17 18:55 O2 Sat by Pulse Oximetry (%) 97 04/06/17 20:57 Constitutional: Yes: Anxious, Moderate Distress, Obese Cardiovascular: Yes: WNL, Regular Rate and Rhythm Respiratory: Yes: On Nasal O2, SOB, SOB on Exertion, Tachypnea, Wheezes Neurological: Yes: WNL, Alert, Oriented, Cran Nerves II-XII Intact ...Motor Strength: WNL Psychiatric: Yes: WNL, Alert, Oriented Labs: CBC, BMP 04/06/17 05:50 04/06/17 05:50 Critical Care Total Critical Care Time (in minutes): 40 Critical Care Statement: The care of this patient involved high complexity decision making to prevent further life threatening deterioration of the patient 's condition and/or to evalute & treat vital organ system(s) failure or risk of failure.
[2017-04-06] MEDS ORDERED: FUROSEMIDE 40 MG/4 ML INJECTABLE VIAL IVPUSH ONE (23:13)
[2017-04-07] MEDS: AZTREONAM 1 GM in DEXTROSE 5%-WATER - 50 ML IVPB SCH ×3 (01:12→17:12)
[2017-04-07] MEDS ORDERED: SODIUM CHLORIDE 500 ML IV STA ×2 (01:41→21:45)
[2017-04-07] MEDS ORDERED: POLYETHYLENE GLYCOL 3350 119 GM BTL PO ONE (01:43)
[2017-04-07] MEDS: methylPREDNISolone NA SUCC 40 MG/1 ML VIAL IVPB SCH ×4 (01:59→21:15)
[2017-04-07] MEDS: ALBUTEROL SO4 2.5/IPRATROPIUM 0.5 INH SOL 3 ML VIAL.NEB. NEB SCH ×4 (06:08→18:44)
[2017-04-07] MEDS: NYSTATIN 500,000 UNITS/5 ML SUSPENSION PO SCH ×3 (06:20→21:15)
[2017-04-07] MEDS: LEVOTHYROXINE NA 25 MCG TABLET (FP) PO SCH (06:20)
[2017-04-07 07:34] LABS: MEAN CELL VOLUME 88.1 fl (80-96); MEAN PLT VOLUME 8.1 fl (7.5-11.1); NEUTROPHILS 94.4 % (42.8-82.8); PLATELET COUNT 232 K/MM3 (134-434); RDW 17.6 % (11.6-15.6); WHITE BLOOD COUNT 15.6 K/mm3 (4.0-10.0)
[2017-04-07 07:59] LABS: INR 2.73 (0.82-1.09); PROTHROMBIN TIME (PATIENT) 30.7 SEC (9.98-11.88)
[2017-04-07 08:16] LABS: ALK PHOS 69 U/L (45-117); ANION GAP 13 (8-16); BILIRUBIN,TOTAL 0.4 mg/dL (0.2-1.0); CALCIUM 8.6 mg/dL (8.5-10.1); CO2 28 mmol/L (21-32); CREATININE 0.8 mg/dL (0.55-1.02); GLUCOSE,RANDOM 206 mg/dL (74-106); SGOT/AST 24 U/L (15-37); SGPT/ALT 43 U/L (12-78); TOT PROT 5.8 g/dl (6.4-8.2)
[2017-04-07] MEDS ORDERED: levETIRAcetam 500 MG TABLET (FP) PO ONE ×2 (09:46→21:12)
[2017-04-07] MEDS ORDERED: levETIRAcetam 250 MG TABLET (FP) PO ONE ×2 (09:46→21:11)
[2017-04-07] MEDS ORDERED: PT OWN MED DRAWER 7, Y5N ONE ×3 (09:47→21:12)
[2017-04-07] MEDS: BUDESONIDE/FORMETEROL FUMARATE 160/4.5 mcg INHALER IH SCH ×2 (09:48→21:16)
[2017-04-07] MEDS: LEVETIRACETAM 250 MG, LEVETIRACETAM 500 MG PO SCH ×2 (09:49→21:15)
[2017-04-07] MEDS: HYDROCHLOROTHIAZIDE 25 MG TABLET (FP) PO SCH (09:49)
[2017-04-07] MEDS: LOSARTAN POTASSIUM 50 MG TABLET (FP) PO SCH (09:49)
[2017-04-07] MEDS: FOLIC ACID 1 MG TABLET (FP) PO SCH (09:49)
[2017-04-07] MEDS: VANCOMYCIN 1,250 MG in DEXTROSE 5%-WATER - 250 ML IVPB SCH (10:26)
--- NOTE | 2017-04-07 10:41 | EKG ---
Test Reason : Blood Pressure : / mmHG Vent. Rate : 104 BPM Atrial Rate : 104 BPM P-R Int : 114 ms QRS Dur : 078 ms QT Int : 316 ms P-R-T Axes : 024 010 -07 degrees QTc Int : 415 ms SINUS TACHYCARDIA WITH PREMATURE ATRIAL COMPLEXES NONSPECIFIC T WAVE ABNORMALITY ABNORMAL ECG WHEN COMPARED WITH ECG OF 04-APR-2017 19:35, PREMATURE ATRIAL COMPLEXES ARE NOW PRESENT NONSPECIFIC T WAVE ABNORMALITY NOW EVIDENT IN LATERAL LEADS Confirmed by PRATIK GUTIÉRREZ, VALERY ([id number]) on 04/07/2017 10:41:42 AM Referred By: Confirmed By:VALERY CHRISTIE MD
--- NOTE | 2017-04-07 13:24 | PN ---
Progress Note, Physician History of Present Illness: PULMONARY EARLIER EVENTS NOTED CURRENTLY FEELING BETTER,NAD - Current Medication List Current Medications: Active Medications Albuterol/Ipratropium (Duoneb -) 1 amp NEB QIDR [facility] Last Admin: 04/07/17 11:27 Dose: 1 amp Atorvastatin Calcium (Lipitor -) 40 mg PO HS [facility] Last Admin: 04/06/17 21:44 Dose: 40 mg Budesonide/Formoterol Fumarate (Symbicort 160/4.5mcg -) 2 puff IH BID [facility] Last Admin: 04/07/17 09:48 Dose: 2 puff Folic Acid (Folic Acid -) 1 mg PO DAILY [facility] Last Admin: 04/07/17 09:49 Dose: 1 mg Hydrochlorothiazide (Hctz -) 25 mg PO DAILY [facility] Last Admin: 04/07/17 09:49 Dose: 25 mg Aztreonam 1 gm/ Dextrose 50 mls @ 100 mls/hr IVPB Q8H-IV [facility] PRN Reason: Protocol Last Admin: 04/07/17 09:50 Dose: 100 mls/hr Levetiracetam 250 mg/ (Levetiracetam 500 mg) 750 mg PO BID [facility] Last Admin: 04/07/17 09:49 Dose: 750 mg Levothyroxine Sodium (Synthroid -) 25 mcg PO DAILY@0700 [facility] Last Admin: 04/07/17 06:20 Dose: 25 mcg Losartan Potassium (Cozaar -) 100 mg PO DAILY [facility] Last Admin: 04/07/17 09:49 Dose: 100 mg Methylprednisolone Sodium Succinate (Solu-Medrol -) 40 mg IVPB Q6H-IV [facility] Last Admin: 04/07/17 09:50 Dose: 40 mg Montelukast Sodium (Singulair -) 10 mg PO [facility] Last Admin: 04/06/17 21:44 Dose: 10 mg Benzonatate 200mg- Patient's Own Medication (Non- Formulary) 200 mg PO DAILY [facility] Nystatin (Nystatin Oral Suspension -) 100,000 units PO TID [facility] Last Admin: 04/07/17 06:20 Dose: 100,000 units Sodium Chloride ([place] Nasal [place] -) 2 spray NS BID PRN PRN Reason: NASAL CONGESTION Last Admin: 04/06/17 21:45 Dose: 2 spray - Objective Vital Signs: Vital Signs Temperature 98 F 04/07/17 08:45 Pulse Rate 87 04/07/17 09:27 Respiratory Rate 22 04/07/17 10:48 Blood Pressure 155/87 04/07/17 08:45 O2 Sat by Pulse Oximetry (%) 98 04/07/17 10:48 Constitutional: Yes: Well Nourished, Calm Eyes: Yes: WNL HENT: Yes: WNL, Other Cardiovascular: Yes: Pulse Irregular, S1, S2 Respiratory: Yes: Wheezes (FEW SCATTERED WHEEZES) Gastrointestinal: Yes: Normal Bowel Sounds, Soft Extremities: Yes: WNL Edema: No Labs: CBC, BMP 04/07/17 06:20 04/07/17 06:20 INR, PTT INR 2.73 (0.82-1.09) H 04/07/17 06:20 Laboratory Tests 04/07/17 11:35 Lactic Acid 4.0 H* Problem List - Problems (1) Atypical pneumonia Code(s): J18.9 - PNEUMONIA, UNSPECIFIED ORGANISM (2) DVT prophylaxis Code(s): [id number] - (3) Dyspnea and respiratory abnormalities Code(s): R06.00 - DYSPNEA, UNSPECIFIED R06.89 - OTHER ABNORMALITIES OF BREATHING (4) DVT (deep venous thrombosis) Code(s): I82.409 - ACUTE EMBOLISM AND THOMBOS UNSP DEEP VN UNSP LOWER EXTREMITY (5) Hyperlipemia Code(s): E78.5 - HYPERLIPIDEMIA, UNSPECIFIED (6) Hypertension Code(s): I10 - ESSENTIAL (PRIMARY) HYPERTENSION (7) Acute hypoxemic respiratory failure Code(s): J96.01 - ACUTE RESPIRATORY FAILURE WITH HYPOXIA Assessment/Plan Problem List - Problems (1) Atypical pneumonia Code(s): J18.9 - PNEUMONIA, UNSPECIFIED ORGANISM (2) DVT prophylaxis Code(s): ASR0248 - (3) Dyspnea and respiratory abnormalities Code(s): R06.00 - DYSPNEA, UNSPECIFIED R06.89 - OTHER ABNORMALITIES OF BREATHING (4) DVT (deep venous thrombosis) Code(s): I82.409 - ACUTE EMBOLISM AND THOMBOS UNSP DEEP VN UNSP LOWER EXTREMITY (5) Hyperlipemia Code(s): E78.5 - HYPERLIPIDEMIA, UNSPECIFIED (6) Hypertension Code(s): I10 - ESSENTIAL (PRIMARY) HYPERTENSION (7) Acute hypoxemic respiratory failure Code(s): J96.01 - ACUTE RESPIRATORY FAILURE WITH HYPOXIA ACUTE HYPOXEMIC RESPIRATORY FAILURE BILATERAL GROUND GLASS INFILTRATES -> (?) PULMONARY VASCULAR CONGESTION (? ) INTERSTITIAL PROCESS ASTHMA EXACERBATION SINUSITIS H/O RECURRENT DVTS HTN HYPOTHYROID PUD PULMONARY HTN ELEVATED LACTATE IMPROVING PLAN IV ANTIBIOTICS PER ID INHALED BRONCHODILATORS IV STEROIDS START TAPER IN AM SUPPLEMENTAL O2 FOLLOW LACTIC ACID DR FLORES
--- NOTE | 2017-04-07 14:46 | PN ---
Physical Exam: SUBJECTIVE: Patient seen and examined at bedside. Patient states she has had a dry nonproductive cough. Also with nasal and sinus congestion. Patient is OOB. OBJECTIVE: Vital Signs 3 Period Temp Pulse Resp BP Sys/[place] Pulse Ox Last 24 Hr 97.8 F-98.1 F 82-102 18-22 102-155/60-87 97-99 GENERAL: The patient is awake, alert, and fully oriented, in no acute distress. HEAD: Normal with no signs of trauma. Tenderness over frontal and maxillary sinuses. ENT: Ears normal, nares patent, oropharynx clear without exudates, moist mucous membranes. NECK: Trachea midline, full range of motion, supple. No JVD present. LUNGS: Breath sounds equal, clear to auscultation bilaterally, forced expiratory wheezes, no crackles, no accessory muscle use. Speaking in full sentences. HEART: Regular rate and rhythm, S1, S2 without murmur, rub or gallop. ABDOMEN: Soft, nontender, nondistended, normoactive bowel sounds. EXTREMITIES: 2+ pulses, warm, well-perfused, no edema. NEUROLOGICAL: Cranial nerves II through XII grossly intact. Normal speech, gait not observed. PSYCH: Normal mood, normal affect. SKIN: Warm, dry, normal turgor, no rashes or lesions noted Laboratory Results - last 24 hr 3 04/06/17 04/06/17 04/06/17 16:00 22:41 23:15 WBC RBC Hgb Hct MCV MCH MCHC RDW Plt Count MPV Neutrophils % Lymphocytes % Monocytes % Eosinophils % Basophils % INR Sodium Potassium Chloride Carbon Dioxide Anion Gap BUN Creatinine Creat Clearance w eGFR Random Glucose Lactic Acid 3.6 H* 4.9 H* Calcium Total Bilirubin AST ALT Alkaline Phosphatase Troponin I < 0.02 Total Protein Albumin 3 04/07/17 04/07/17 04/07/17 06:20 06:20 06:20 WBC 15.6 H RBC 4.33 Hgb 12.6 Hct 38.1 MCV 88.1 MCH 29.0 MCHC 33.0 RDW 17.6 H Plt Count 232 MPV 8.1 Neutrophils % 94.4 H Lymphocytes % 3.4 L Monocytes % 2.2 L Eosinophils % 0.0 D Basophils % 0.0 INR 2.73 H Sodium 143 Potassium 3.8 D Chloride 102 Carbon Dioxide 28 Anion Gap 13 BUN 21 H Creatinine 0.8 Creat Clearance w eGFR > 60 Random Glucose 206 H Lactic Acid Calcium 8.6 Total Bilirubin 0.4 AST 24 ALT 43 Alkaline Phosphatase 69 Troponin I Total Protein 5.8 L Albumin 3.0 L 3 04/07/17 11:35 WBC RBC Hgb Hct MCV MCH MCHC RDW Plt Count MPV Neutrophils % Lymphocytes % Monocytes % Eosinophils % Basophils % INR Sodium Potassium Chloride Carbon Dioxide Anion Gap BUN Creatinine Creat Clearance w eGFR Random Glucose Lactic Acid 4.0 H* Calcium Total Bilirubin AST ALT Alkaline Phosphatase Troponin I Total Protein Albumin Active Medications 3 Generic Name Dose Route Start Last Admin Trade Name Freq PRN Reason Stop Dose Admin Albuterol/Ipratropium 1 amp 04/05/17 12:00 04/07/17 11:27 Duoneb - NEB 1 amp QIDR [facility] Administration Atorvastatin Calcium 40 mg 04/05/17 22:00 04/06/17 21:44 Lipitor - PO 40 mg HS [facility] Administration Budesonide/Formoterol Fumarate 2 puff 04/05/17 22:00 04/07/17 09:48 Symbicort 160/4.5mcg - IH 2 puff BID [facility] Administration Folic Acid 1 mg 04/05/17 10:00 04/07/17 09:49 Folic Acid - PO 1 mg DAILY [facility] Administration Guaifenesin 600 mg 04/07/17 22:00 Mucinex - PO BID [facility] Hydrochlorothiazide 25 mg 04/05/17 10:00 04/07/17 09:49 Hctz - PO 25 mg DAILY [facility] Administration Aztreonam 1 gm/ Dextrose 50 mls @ 100 mls/hr 04/05/17 18:15 04/07/17 09:50 IVPB 100 mls/hr Q8H-IV [facility] Administration Protocol Levetiracetam 250 mg/ 750 mg 04/05/17 10:00 04/07/17 09:49 Levetiracetam 500 mg PO 750 mg BID [facility] Administration Levothyroxine Sodium 25 mcg 04/05/17 07:00 04/07/17 06:20 Synthroid - PO 25 mcg DAILY@0700 [facility] Administration Losartan Potassium 100 mg 04/05/17 10:00 04/07/17 09:49 Cozaar - PO 100 mg DAILY [facility] Administration Methylprednisolone Sodium Succinate 40 mg 04/05/17 09:00 04/07/17 14:40 Solu-Medrol - IVPB 40 mg Q6H-IV [facility] Administration Montelukast Sodium 10 mg 04/05/17 22:00 04/06/17 21:44 Singulair - PO 10 mg HS [facility] Administration Nystatin 100,000 units 04/05/17 06:00 04/07/17 13:54 Nystatin Oral Suspension - PO 100,000 units TID [facility] Administration Sodium Chloride 2 spray 04/05/17 17:27 04/06/17 21:45 [place] Nasal [place] - NS 2 spray BID PRN Administration NASAL CONGESTION Echo as read by Ulises: EF-65.1% LV- size, thickness and function are normal RV- Normal size and function. Systolic pressure elevated at 40-50mmHg Mitral valve- Mild to moderate thickening. A vegetation cannot be excluded. Mild MR. Microbiology 04/05/17 06:00 Sputum - Expectorated Gram Stain - Final 04/05/17 06:00 Sputum - Expectorated Sputum Culture - Final Strep Agalactiae Group B 04/05/17 06:00 Urine For Antigen Detection Legionella Antigen - Final 04/05/17 06:00 Urine For Antigen Detection Streptococcus pneumoniae Antigen (M - Final ASSESSMENT/PLAN: A: 76 year old female with PMHx HTN, hyperlipidemia, asthma, recurrent DVTs on Coumadin, seizure disorder, PUD who presented to the ED with shortness of breath , dizziness, and fatigue. P: 1. Sepsis 2/2 probable atypical pneumonia vs. sinusitis - Elevated WBC (infectious vs. steroid induced) - Lactic acidosis, continue IV fluids and monitor lung function closely - Sinus tenderness - Sputum culture (+)GBS - Stop vanco (04/05-04/07) - aztreonam per ID - Appreciate ID consult 2. Acute asthma exacerbation - Chest CTA with perihilar predominant groundglass densities noted which could be from early pulmonary edema. Atypical infection/inflammation cannot be excluded. No gross pulmonary embolism is seen. - Continue on Solumedrol 40mg IVPB q8h - Duonebs - Continue Symbicort while here, discharge out on home Advair - Continue Singulair - O2 via NC prn - Appreciate pulmonary consult 3. H/o of multiple DVTs - INR- 2.73 - restart warfarin 2mg tonight - home warfarin day#1 -2mg, day#2 -2mg, day#3 -2.5mg, day#4 -2.5mg 4. HTN - Continue Losartan - Continue Hctz 5. Hyperlipidemia - Continue Lipitor 6. Seizure disorder - Continue Keppra 7. F/E/N - Monitor electrolytes - Low sodium diet 8. PPX - OOB ambulating - INR therapuetic- on warfarin Dispo- Requires continued inpatient care CODE STATUS: FULL CODE Visit type - Emergency Visit Emergency Visit: Yes ED Registration Date: 04/04/17 Care time: The patient presented to the Emergency Department on the above date and was hospitalized for further evaluation of their emergent condition. - New Patient This patient is new to me today: Yes Date on this admission: 04/07/17 - Critical Care Critical Care patient: No
[2017-04-07] MEDS ORDERED: SODIUM CHLORIDE 1,000 ML IV STA (15:18)
[2017-04-07] MEDS ORDERED: WARFARIN NA 2 MG TABLET (UD) PO ONE (18:00)
[2017-04-07] MEDS: ATORVASTATIN CA 40 MG TABLET (FP) PO SCH (21:15)
[2017-04-07] MEDS: guaiFENesin 600 MG TABLET.ER (FP) PO SCH (21:15)
[2017-04-07] MEDS: MONTELUKAST NA 10 MG TABLET PO SCH (21:15)
[2017-04-08] MEDS: ALBUTEROL SO4 2.5/IPRATROPIUM 0.5 INH SOL 3 ML VIAL.NEB. NEB SCH ×4 (00:31→18:28)
[2017-04-08] MEDS ORDERED: PT OWN MED DRAWER 7, Y5N ONE ×4 (02:03→21:10)
[2017-04-08] MEDS: methylPREDNISolone NA SUCC 40 MG/1 ML VIAL IVPB SCH ×4 (02:05→21:25)
[2017-04-08] MEDS: AZTREONAM 1 GM in DEXTROSE 5%-WATER - 50 ML IVPB SCH ×3 (02:05→17:50)
[2017-04-08] MEDS: NYSTATIN 500,000 UNITS/5 ML SUSPENSION PO SCH ×3 (06:04→21:25)
[2017-04-08] MEDS: LEVOTHYROXINE NA 25 MCG TABLET (FP) PO SCH (06:04)
[2017-04-08] MEDS: BENZONATATE 200 MG PO SCH ×2 (07:12→07:13)
[2017-04-08 07:20] LABS: BASOPHIL 0.1 % (0-2.0); EOSINOPHIL 0.2 % (0-4.5); MCH 28.5 pg (25.7-33.7); MCHC 32.2 g/dl (32.0-36.0); MEAN CELL VOLUME 88.6 fl (80-96); MEAN PLT VOLUME 8.9 fl (7.5-11.1); NEUTROPHILS 92.7 % (42.8-82.8); PLATELET COUNT 177 K/MM3 (134-434); RDW 17.6 % (11.6-15.6); WHITE BLOOD COUNT 16.9 K/mm3 (4.0-10.0)
[2017-04-08 07:53] LABS: INR 2.46 (0.82-1.09); PROTHROMBIN TIME (PATIENT) 27.6 SEC (9.98-11.88)
[2017-04-08 07:56] LABS: ALBUMIN 2.9 g/dl (3.4-5.0); ANION GAP 11 (8-16); CALCIUM 8.5 mg/dL (8.5-10.1); CO2 24 mmol/L (21-32); GLUCOSE,RANDOM 200 mg/dL (74-106); SGPT/ALT 52 U/L (12-78)
[2017-04-08 07:59] LABS: ALK PHOS 72 U/L (45-117); BILIRUBIN,TOTAL 0.4 mg/dL (0.2-1.0); CREATININE 0.8 mg/dL (0.55-1.02); TOT PROT 5.8 g/dl (6.4-8.2)
[2017-04-08 08:06] LABS: SGOT/AST 36 U/L (15-37)
[2017-04-08] MEDS ORDERED: WARFARIN NA 1 MG TABLET (FP) PO SCH ×2 (08:30→18:00)
[2017-04-08] MEDS ORDERED: levETIRAcetam 500 MG TABLET (FP) PO ONE ×2 (09:11→21:09)
[2017-04-08] MEDS ORDERED: levETIRAcetam 250 MG TABLET (FP) PO ONE ×2 (09:11→21:09)
[2017-04-08] MEDS: HYDROCHLOROTHIAZIDE 25 MG TABLET (FP) PO SCH (09:21)
[2017-04-08] MEDS: LOSARTAN POTASSIUM 50 MG TABLET (FP) PO SCH (09:21)
[2017-04-08] MEDS: LEVETIRACETAM 250 MG, LEVETIRACETAM 500 MG PO SCH ×2 (09:22→21:25)
[2017-04-08] MEDS: FOLIC ACID 1 MG TABLET (FP) PO SCH (09:22)
[2017-04-08] MEDS: BUDESONIDE/FORMETEROL FUMARATE 160/4.5 mcg INHALER IH SCH ×2 (09:22→21:27)
[2017-04-08] MEDS: guaiFENesin 600 MG TABLET.ER (FP) PO SCH ×2 (09:23→22:00)
[2017-04-08] MEDS ORDERED: SODIUM CHLORIDE 1,000 ML IV STA (10:22)
--- NOTE | 2017-04-08 10:31 | PN ---
Physical Exam: SUBJECTIVE: Patient seen and examined at the bedside. States she is still having dyspnea and dizziness with ambulation. States she is oxygen dependent at home and uses 2 liters of nasal cannula most of the day OBJECTIVE: WBC 16.9, low grade fever Will order CT of sinus to evaluate further BGMs elevated, check ac/hs and administer novolog hmga1c @7.1 Persistent lactic acidosis despite aggressive fluid hydration: can be due to asthma exacerbation vs. Keppra use vs. albuterol use Will ask Neurology to follow blood cultures to be drawn Vital Signs Period Temp Pulse Resp BP Sys/[place] Pulse Ox Last 24 Hr 97.8 F-99.7 F 92-102 20-22 120-131/58-74 98-98 GENERAL: The patient is awake, alert, and fully oriented, in no acute distress. HEAD: Normal with no signs of trauma. + sinus pain and pressure EYES: PERRL, extraocular movements intact, sclera anicteric, conjunctiva clear. No ptosis. ENT: Ears normal, nares patent, oropharynx clear without exudates, moist mucous membranes. NECK: Trachea midline, full range of motion, supple. LUNGS: + scattered expiratory wheezing HEART: Regular rate and rhythm ABDOMEN: Soft, nontender, nondistended, normoactive bowel sounds, no guarding, no rebound, no hepatosplenomegaly, no masses. EXTREMITIES: 2+ pulses, warm, well-perfused, no edema. NEUROLOGICAL: Normal speech, gait not observed. PSYCH: Normal mood, normal affect. SKIN: Warm, dry, normal turgor, no rashes or lesions noted Laboratory Results - last 24 hr 04/07/17 04/07/17 04/08/17 11:35 17:30 02:30 WBC RBC Hgb Hct MCV MCH MCHC RDW Plt Count MPV Neutrophils % Lymphocytes % Monocytes % Eosinophils % Basophils % INR Sodium Potassium Chloride Carbon Dioxide Anion Gap BUN Creatinine Creat Clearance w eGFR Random Glucose Lactic Acid 4.0 H* 3.4 H* 3.6 H* Calcium Total Bilirubin AST ALT Alkaline Phosphatase Total Protein Albumin 04/08/17 04/08/17 04/08/17 06:20 06:20 06:20 WBC 16.9 H RBC 4.55 Hgb 13.0 Hct 40.4 MCV 88.6 MCH 28.5 MCHC 32.2 RDW 17.6 H Plt Count 177 D MPV 8.9 Neutrophils % 92.7 H Lymphocytes % 4.2 L D Monocytes % 2.8 L Eosinophils % 0.2 D Basophils % 0.1 D INR 2.46 H Sodium 140 Potassium 4.2 Chloride 105 Carbon Dioxide 24 Anion Gap 11 BUN 25 H Creatinine 0.8 Creat Clearance w eGFR > 60 Random Glucose 200 H Lactic Acid Calcium 8.5 Total Bilirubin 0.4 AST 36 D ALT 52 D Alkaline Phosphatase 72 Total Protein 5.8 L Albumin 2.9 L 04/08/17 07:50 WBC RBC Hgb Hct MCV MCH MCHC RDW Plt Count MPV Neutrophils % Lymphocytes % Monocytes % Eosinophils % Basophils % INR Sodium Potassium Chloride Carbon Dioxide Anion Gap BUN Creatinine Creat Clearance w eGFR Random Glucose Lactic Acid 2.9 H* Calcium Total Bilirubin AST ALT Alkaline Phosphatase Total Protein Albumin Active Medications Generic Name Dose Route Start Last Admin Trade Name Freq PRN Reason Stop Dose Admin Acetaminophen 650 mg 04/08/17 06:24 Tylenol - PO Q6H PRN FEVER OR PAIN Albuterol/Ipratropium 1 amp 04/05/17 12:00 04/08/17 06:56 Duoneb - NEB 1 amp QIDR LUIZA Administration Atorvastatin Calcium 40 mg 04/05/17 22:00 04/07/17 21:15 Lipitor - PO 40 mg HS LUIZA Administration Budesonide/Formoterol Fumarate 2 puff 04/05/17 22:00 04/08/17 09:22 Symbicort 160/4.5mcg - IH 2 puff BID LUIZA Administration Folic Acid 1 mg 04/05/17 10:00 04/08/17 09:22 Folic Acid - PO 1 mg DAILY LUIZA Administration Guaifenesin 600 mg 04/07/17 22:00 04/08/17 09:23 Mucinex - PO 600 mg BID LUIZA Administration Hydrochlorothiazide 25 mg 04/05/17 10:00 04/08/17 09:21 Hctz - PO 25 mg DAILY LUIZA Administration Aztreonam 1 gm/ Dextrose 50 mls @ 100 mls/hr 04/05/17 18:15 04/08/17 09:21 IVPB 100 mls/hr Q8H-IV LUIZA Administration Protocol Sodium Chloride 1,000 mls @ 1,000 mls/hr 04/08/17 10:22 Normal Saline - IV 04/08/17 11:21 ASDIR STA Levetiracetam 250 mg/ 750 mg 04/05/17 10:00 04/08/17 09:22 Levetiracetam 500 mg PO 750 mg BID LUIZA Administration Levothyroxine Sodium 25 mcg 04/05/17 07:00 04/08/17 06:04 Synthroid - PO 25 mcg DAILY@0700 LUI[facility] Administration Losartan Potassium 100 mg 04/05/17 10:00 04/08/17 09:21 Cozaar - PO 100 mg DAILY LUIZA Administration Methylprednisolone Sodium Succinate 40 mg 04/05/17 09:00 04/08/17 09:21 Solu-Medrol - IVPB 40 mg Q6H-IV LUI[facility] Administration Montelukast Sodium 10 mg 04/05/17 22:00 04/07/17 21:15 Singulair - PO 10 mg HS LUIZA Administration Nystatin 100,000 units 04/05/17 06:00 04/08/17 06:04 Nystatin Oral Suspension - PO 100,000 units TID LUIZA Administration Sodium Chloride 2 spray 04/05/17 17:27 04/06/17 21:45 [place] Nasal [place] - NS 2 spray BID PRN Administration NASAL CONGESTION Warfarin Sodium 2 mg 04/08/17 18:00 Coumadin - PO DAILY@1800 [facility] ASSESSMENT/PLAN: Patient is a 76 year old female with a significant past medical history of hypertension, hyperlipidemia, asthma, 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 Patient presented to the ER on 04/04/2017 with shortness of breath, dizziness, and fatigue. CT angiogram of the chest 04/04/17: No gross pulmonary embolism is seen to the lobar level ID: Sepsis secondary to pneumonia vs. sinusitis vs. acute asthma exacerbation WBC elevated at 16.9, having low grade temps Leukocytosis may be due to iv steriods vs. infection + sinus tenderness and pressure, CT scan of sinus pending On Aztreonam 1 gram as per ID Has persistent lactic acidosis not responding to fluid boluses, patient may also be getting fluid overloaded On Singuliar, 2 liter of oxygen continuous Patient oxygen dependent @ home On Solumedrol 40mg ivpb q8 Pulmonary following Persistent lactic acidosis Assessment/Plan: Persistent lactic acidosis despite aggressive fluid hydration: can be due to asthma exacerbation vs. Keppra use vs. albuterol use Will hold off on further iv fluid boluses as patient appears to be fluid overloaded Chest xray ordered by pulmonary Hematology: History of recurrent DVTs on Coumadin Assessment/Plna: On Coumdin 2mg daily based on INR Patient alternates between 1mg to 2.5 mg of Coumadin at home Neurology: Seizure Disorder Assessment/Plan: On Keppra 750mg BID D/W neurology as cause of elevated lactic acidosis Endocrine: Elevated hmga1c @7.1 Likely steriod induced, continue BGMs, will need endocrinology f/u as outpt, glucometer and insulin F.E.N. Fluids: tolerating PO Electrolytes: monitor bmp Nutrition: diabetic diet Prophylaxis: DVT: On Coumadin GI: Protonix while on serious Visit type - Emergency Visit Emergency Visit: Yes ED Registration Date: 04/04/17 Care time: The patient presented to the Emergency Department on the above date and was hospitalized for further evaluation of their emergent condition. - New Patient This patient is new to me today: Yes Date on this admission: 04/08/17 - Critical Care Critical Care patient: No - Discharge Referral Referred to [facility] Med P.C.: No
[2017-04-08] MEDS: SODIUM CHLORIDE NASAL SPRAY 44 ML BOTTLE NS PRN (10:42)
[2017-04-08] MEDS ORDERED: INSULIN (NOVOLOG) ASPART 100 UNITS/ML 10ML VIAL ONE ×3 (11:59→21:10)
[2017-04-08] MEDS: INSULIN SLIDING SCALE (NOVOLOG) 1 VIAL SQ SCH ×3 (12:05→21:26)
--- NOTE | 2017-04-08 13:16 | PN ---
Progress Note (short form) - Note Progress Note: Still with sinus ROLLINS and FIERRO. Still with some dizziness with sitting up and standing. No CP. Daughter again is at the bedside for translation. Intake & Output 04/05/17 04/06/17 04/07/17 04/08/17 23:59 23:59 23:59 23:59 Intake Total 2024 3950 3150 575 Balance 2024 3950 3150 575 Weight 176 lb 4 oz 181 lb 6 oz 175 lb 9 oz 181 lb 3 oz Last Vital Signs Temp Pulse Resp BP Pulse Ox 98.0 F 105 H 24 153/90 98 04/08/17 10:00 04/08/17 11:50 04/08/17 11:50 04/08/17 11:50 04/07/17 21:00 Active Medications Acetaminophen (Tylenol -) 650 mg PO Q6H PRN PRN Reason: FEVER OR PAIN Albuterol/Ipratropium (Duoneb -) 1 amp NEB QIDR [facility] Last Admin: 04/08/17 11:25 Dose: 1 amp Atorvastatin Calcium (Lipitor -) 40 mg PO HS [facility] Last Admin: 04/07/17 21:15 Dose: 40 mg Budesonide/Formoterol Fumarate (Symbicort 160/4.5mcg -) 2 puff IH BID [facility] Last Admin: 04/08/17 09:22 Dose: 2 puff Folic Acid (Folic Acid -) 1 mg PO DAILY [facility] Last Admin: 04/08/17 09:22 Dose: 1 mg Guaifenesin (Mucinex -) 600 mg PO BID [facility] Last Admin: 04/08/17 09:23 Dose: 600 mg Hydrochlorothiazide (Hctz -) 25 mg PO DAILY [facility] Last Admin: 04/08/17 09:21 Dose: 25 mg Aztreonam 1 gm/ Dextrose 50 mls @ 100 mls/hr IVPB Q8H-IV [facility] PRN Reason: Protocol Last Admin: 04/08/17 09:21 Dose: 100 mls/hr Insulin Aspart (Novolog Vial Sliding Scale -) 1 vial SQ ACHS [facility] PRN Reason: Protocol Last Admin: 04/08/17 12:05 Dose: 2 units Levetiracetam 250 mg/ (Levetiracetam 500 mg) 750 mg PO BID [facility] Last Admin: 07/13/17 09:22 Dose: 750 mg Levothyroxine Sodium (Synthroid -) 25 mcg PO DAILY@0700 [facility] Last Admin: 04/08/17 06:04 Dose: 25 mcg Losartan Potassium (Cozaar -) 100 mg PO DAILY [facility] Last Admin: 04/08/17 09:21 Dose: 100 mg Methylprednisolone Sodium Succinate (Solu-Medrol -) 40 mg IVPB Q6H-IV [facility] Last Admin: 04/08/17 09:21 Dose: 40 mg Montelukast Sodium (Singulair -) 10 mg PO HS [facility] Last Admin: 04/07/17 21:15 Dose: 10 mg Nystatin (Nystatin Oral Suspension -) 100,000 units PO TID [facility] Last Admin: 04/08/17 06:04 Dose: 100,000 units Sodium Chloride ([place] Nasal [place] -) 2 spray NS BID PRN PRN Reason: NASAL CONGESTION Last Admin: 04/08/17 10:42 Dose: 2 spray Warfarin Sodium (Coumadin -) 2 mg PO DAILY@1800 [facility] Constitutional: Yes: Mildly tachypneic Eyes: Yes: Conjunctiva Clear HENT: Yes: (+) sinus tenderness Neck: Yes: Supple, Trachea Midline Cardiovascular: Yes: Regular Rate and Rhythm, S1, S2 Respiratory: Yes: Bilateral rhonchi, (-) wheeze Gastrointestinal: Yes: Normal Bowel Sounds, Soft Extremities: Yes: WNL Integumentary: Yes: WNL Neurological: Yes: Alert, Oriented Psychiatric: Yes: Alert, Oriented Labs: Laboratory Results - last 24 hr 04/07/17 04/08/17 04/08/17 17:30 02:30 06:20 WBC 16.9 H RBC 4.55 Hgb 13.0 Hct 40.4 MCV 88.6 MCH 28.5 MCHC 32.2 RDW 17.6 H Plt Count 177 D MPV 8.9 Neutrophils % 92.7 H Lymphocytes % 4.2 L D Monocytes % 2.8 L Eosinophils % 0.2 D Basophils % 0.1 D INR Sodium Potassium Chloride Carbon Dioxide Anion Gap BUN Creatinine Creat Clearance w eGFR POC Glucometer Random Glucose Lactic Acid 3.4 H* 3.6 H* Calcium Total Bilirubin AST ALT Alkaline Phosphatase Total Protein Albumin 04/08/17 04/08/17 04/08/17 06:20 06:20 07:50 WBC RBC Hgb Hct MCV MCH MCHC RDW Plt Count MPV Neutrophils % Lymphocytes % Monocytes % Eosinophils % Basophils % INR 2.46 H Sodium 140 Potassium 4.2 Chloride 105 Carbon Dioxide 24 Anion Gap 11 BUN 25 H Creatinine 0.8 Creat Clearance w eGFR > 60 POC Glucometer Random Glucose 200 H Lactic Acid 2.9 H* Calcium 8.5 Total Bilirubin 0.4 AST 36 D ALT 52 D Alkaline Phosphatase 72 Total Protein 5.8 L Albumin 2.9 L 04/08/17 12:02 WBC RBC Hgb Hct MCV MCH MCHC RDW Plt Count MPV Neutrophils % Lymphocytes % Monocytes % Eosinophils % Basophils % INR Sodium Potassium Chloride Carbon Dioxide Anion Gap BUN Creatinine Creat Clearance w eGFR POC Glucometer 155 Random Glucose Lactic Acid Calcium Total Bilirubin AST ALT Alkaline Phosphatase Total Protein Albumin - Problems (1) Atypical pneumonia Code(s): J18.9 - PNEUMONIA, UNSPECIFIED ORGANISM (2) DVT prophylaxis Code(s): KOS0352 - (3) Dyspnea and respiratory abnormalities Code(s): R06.00 - DYSPNEA, UNSPECIFIED R06.89 - OTHER ABNORMALITIES OF BREATHING (4) DVT (deep venous thrombosis) Code(s): I82.409 - ACUTE EMBOLISM AND THOMBOS UNSP DEEP VN UNSP LOWER EXTREMITY (5) Hyperlipemia Code(s): E78.5 - HYPERLIPIDEMIA, UNSPECIFIED (6) Hypertension Code(s): I10 - ESSENTIAL (PRIMARY) HYPERTENSION (7) Acute hypoxemic respiratory failure Code(s): J96.01 - ACUTE RESPIRATORY FAILURE WITH HYPOXIA ACUTE HYPOXEMIC RESPIRATORY FAILURE BILATERAL GROUND GLASS INFILTRATES -> (?) PULMONARY VASCULAR CONGESTION (? ) INTERSTITIAL PROCESS ASTHMA EXACERBATION SINUSITIS H/O RECURRENT DVTS HTN HYPOTHYROID PUD LACTIC ACIDOSIS -> (?) DUE TO KEPPRA PLAN IV ANTIBIOTICS PER ID INHALED BRONCHODILATORS TAPER IV STEROIDS SUPPLEMENTAL O2 NASAL SPRAYS FOLLOW LACTIC ACID CXR -> IF CONGESTED -> TRIAL OF LASIX DR MIRANDA
--- NOTE | 2017-04-08 14:23 | PN ---
Progress Note, Physician History of Present Illness: feeling better no new issues patients looks much better - Current Medication List Current Medications: Active Medications Acetaminophen (Tylenol -) 650 mg PO Q6H PRN PRN Reason: FEVER OR PAIN Albuterol/Ipratropium (Duoneb -) 1 amp NEB QIDR [facility] Last Admin: 04/08/17 11:25 Dose: 1 amp Atorvastatin Calcium (Lipitor -) 40 mg PO HS [facility] Last Admin: 04/07/17 21:15 Dose: 40 mg Budesonide/Formoterol Fumarate (Symbicort 160/4.5mcg -) 2 puff IH BID [facility] Last Admin: 04/08/17 09:22 Dose: 2 puff Folic Acid (Folic Acid -) 1 mg PO DAILY [facility] Last Admin: 04/08/17 09:22 Dose: 1 mg Guaifenesin (Mucinex -) 600 mg PO BID [facility] Last Admin: 04/08/17 09:23 Dose: 600 mg Hydrochlorothiazide (Hctz -) 25 mg PO DAILY [facility] Last Admin: 04/08/17 09:21 Dose: 25 mg Aztreonam 1 gm/ Dextrose 50 mls @ 100 mls/hr IVPB Q8H-IV [facility] PRN Reason: Protocol Last Admin: 04/08/17 09:21 Dose: 100 mls/hr Insulin Aspart (Novolog Vial Sliding Scale -) 1 vial SQ ACHS [facility] PRN Reason: Protocol Last Admin: 04/08/17 12:05 Dose: 2 units Levetiracetam 250 mg/ (Levetiracetam 500 mg) 750 mg PO BID [facility] Last Admin: 04/08/17 09:22 Dose: 750 mg Levothyroxine Sodium (Synthroid -) 25 mcg PO DAILY@0700 [facility] Last Admin: 04/08/17 06:04 Dose: 25 mcg Losartan Potassium (Cozaar -) 100 mg PO DAILY [facility] Last Admin: 04/08/17 09:21 Dose: 100 mg Methylprednisolone Sodium Succinate (Solu-Medrol -) 40 mg IVPB Q6H-IV [facility] Last Admin: 04/08/17 09:21 Dose: 40 mg Montelukast Sodium (Singulair -) 10 mg PO HS [facility] Last Admin: 04/07/17 21:15 Dose: 10 mg Nystatin (Nystatin Oral Suspension -) 100,000 units PO TID [facility] Last Admin: 04/08/17 06:04 Dose: 100,000 units Sodium Chloride ([place] Nasal [place] -) 2 spray NS BID PRN PRN Reason: NASAL CONGESTION Last Admin: 04/08/17 10:42 Dose: 2 spray Warfarin Sodium (Coumadin -) 2 mg PO DAILY@1800 [facility] - Objective Vital Signs: Vital Signs Temperature 98.0 F 04/08/17 10:00 Pulse Rate 105 H 04/08/17 11:50 Respiratory Rate 24 04/08/17 11:50 Blood Pressure 153/90 04/08/17 11:50 O2 Sat by Pulse Oximetry (%) 96 04/08/17 09:00 Constitutional: Yes: No Distress, Calm Neck: Yes: Supple, Trachea Midline Cardiovascular: Yes: Regular Rate and Rhythm Respiratory: Yes: Regular, CTA Bilaterally Gastrointestinal: Yes: Normal Bowel Sounds, Soft Musculoskeletal: Yes: Other Extremities: Yes: Other Neurological: Yes: Alert, Oriented Psychiatric: Yes: Alert Labs: CBC, BMP 04/08/17 06:20 04/08/17 06:20 INR, PTT INR 2.46 (0.82-1.09) H 04/08/17 06:20 Assessment/Plan 76 y/o with a PMHx of: Asthma, HTN, HLD, Seizures, DVTs (on Coumadin). Presents to the ED SOB, Cough, Rhinnorhea. Admitted M/S Atypical Pneumonia for further evaluation of their emergent condition. 1. Atypical Pneumonia 2. Hypoxemia 3. Asthma 4. Supratherapuetic INR 5. DVTs 6. Hypertension 7. Hyperlipidemia 8. Seizures 9 leukocytosis 10 lactic acidosis 11 thrush plan continue current abx incentive freddy await for sinus ct rest as per primary
--- NOTE | 2017-04-08 16:22 | CON.NEURO ---
Consult - History of Present Illness History of Present Illness: called to evaluate if high lactic acidosis could be side effect of keppra HPI 76 year old female hsitory of asthma, htn, hld and dvt ( on coumadin) and history of seizures . Patient takes keppra randomly whenever she gets aura , she has seizures 2016. Patient admitted for pneumonia and worsening of asthma. She is getting better but her lactic acid levels are high and now going down after treating with iv fluid . She denies any focal neurological symptoms - Past Medical History [employer]: Yes: CVA, Seizure ( last seizure >10yrs ago), Vertigo Cardio/Vascular: Yes: HTN Pulmonary: Yes: Asthma Gastrointestinal: Yes: Gastritis, Peptic Ulcer Disease Musculoskeletal: Yes: Other (arthritis (type not specificed)) ENT: Yes: Sinusitis Endocrine: Yes: Hypothyroidism Additional Medical History: DVTs, HPL - Past Surgical History Past Surgical History: Yes: Breast Biopsy, Hysterectomy - Alcohol/Substance Use Hx Alcohol Use: No History of Substance Use: reports: None - Smoking History Smoking history: Never smoked Have you smoked in the past 12 months: No Aproximately how many cigarettes per day: 0 - Social History Occupation: retired 20 yrs ago History of Recent Travel: Yes (traveled from [place]) Home Medications - Allergies Allergies/Adverse Reactions: Allergies Allergy/AdvReac Type Severity Reaction Status Date / Time Penicillins Allergy Swelling Verified 04/04/17 17:50 - Home Medications Home Medications: Ambulatory Orders Cholecalciferol (Vitamin D3) [Vitamin D-3] 10,000 unit PO WEEKLY 04/01/13 Montelukast Na [Singulair -] 10 mg PO HS 04/01/13 Losartan/Hydrochlorothiazide [Losartan-Hctz 100-25 mg Tablet] 1 each PO DAILY Albuterol 0.083% Nebulizer Prabha [Ventolin 0.083% Nebulizer Soln -] 1 neb NEB Q6H PRN #20 vial 07/26/16 Levetiracetam [Keppra -] 750 mg PO BID 07/26/16 Levothyroxine [Synthroid -] 25 mcg PO DAILY 07/26/16 Benzonatate [Tessalon Perle -] 200 mg PO DAILY 08/09/16 Folic Acid 1 mg PO DAILY 08/09/16 Atorvastatin Ca [Lipitor] 40 mg PO HS #30 tablet 08/11/16 Doxycycline Hyclate 100 mg PO BID #10 capsule 08/11/16 Meclizine HCl [Antivert -] 12.5 mg PO TID #15 tablet 08/11/16 Nystatin 100,000 unit PO TID 04/05/17 Prednisone [Deltasone -] 20 mg PO DAILY 04/05/17 Warfarin Sodium [Coumadin] 2 mg PO ASDIR 04/05/17 Warfarin Sodium [Coumadin] 2.5 mg PO ASDIR 04/05/17 Family Disease History - Family Disease History Family Disease History: Diabetes: Father ( of [place]), Mother ( of uterine cancer), Heart Disease: Father, Respiratory: Sister (asthma) Physical Exam-Neuro Vital Signs: Vital Signs Temperature 98.0 F 04/08/17 14:21 Pulse Rate 104 H 04/08/17 14:21 Respiratory Rate 20 04/08/17 14:21 Blood Pressure 117/59 04/08/17 14:21 O2 Sat by Pulse Oximetry (%) 96 04/08/17 09:00 Labs: CBC, BMP 04/08/17 06:20 04/08/17 06:20 INR, PTT INR 2.46 (0.82-1.09) H 04/08/17 06:20 NIH Stroke Scale - Total Score NIH Stroke Scale Score: 0 Assessment/Plan cc called to evaluate if high lactic acidosis could be side effect of keppra HPI 76 year old female hsitory of asthma, htn, hld and dvt ( on coumadin) and history of seizures . Patient takes keppra randomly whenever she gets aura , she has seizures 2015. Patient admitted for pneumonia and worsening of asthma. She is getting better but her lactic acid levels are high and now going down after treating with iv fluid . She denies any focal neurological symptoms T Medical History asa above , HTN Asthma, HLD DVT Surgical history -- hyperectomy and breast biopsy Denies toxic habits and lives in [place], from [place] Allergy to [facility] HOME MEDICATIONS: Home Medications Medication Instructions Recorded Cholecalciferol (Vitamin D3) 10,000 unit PO WEEKLY 04/01/13 [Vitamin D-3] Montelukast Na [Singulair -] 10 mg PO HS 04/01/13 Losartan/Hydrochlorothiazide 1 each PO DAILY 08/28/13 [Losartan-Hctz 100-25 mg Tablet] Albuterol 0.083% Nebulizer Prabha 1 neb NEB Q6H PRN #20 vial 07/26/16 [Ventolin 0.083% Nebulizer Soln -] Levetiracetam [Keppra -] 750 mg PO BID 07/26/16 Levothyroxine [Synthroid -] 25 mcg PO DAILY 07/26/16 Benzonatate [Tessalon Perle -] 200 mg PO DAILY 08/09/16 Folic Acid 1 mg PO DAILY 08/09/16 Atorvastatin Ca [Lipitor] 40 mg PO HS #30 tablet 08/11/16 Doxycycline Hyclate 100 mg PO BID #10 capsule 08/11/16 Meclizine HCl [Antivert -] 12.5 mg PO TID #15 tablet 08/11/16 Warfarin Sodium [Coumadin] 1 mg PO ASDIR #30 tablet 08/11/16 Warfarin Sodium [Coumadin] 2 mg PO ASDIR #30 tablet 08/11/16 Neuroexam is non focal Assessment-- 76 year old female hsitory of seizure and no seizure recently , Patient is not taking medication every day and have high lactic acid levels, and I was asked to eval if due to keppra Plan-- It is less likely to be keppra in my opinion -- If primary team wishes to switch , we can start lamictal 50 mg po bid and lamictal can be increased to 100 mg in next three to five days than keppra can be rapidly tapered off in 5-7 days -- there is always a chance it may trigger seizures, other option is to watch for now and if she clears Lactic Acidosis , Leave upto primary team to decide further course please feel free to call me if you have any question Thanking you so much Jack Pardo MD
[2017-04-08] MEDS: PANTOPRAZOLE 40 MG TABLET (FP) PO SCH (17:50)
[2017-04-08] MEDS: MONTELUKAST NA 10 MG TABLET PO SCH (21:26)
[2017-04-08] MEDS: ATORVASTATIN CA 40 MG TABLET (FP) PO SCH (21:26)
[2017-04-09] MEDS: ALBUTEROL SO4 2.5/IPRATROPIUM 0.5 INH SOL 3 ML VIAL.NEB. NEB SCH ×4 (00:20→17:04)
[2017-04-09] MEDS ORDERED: PT OWN MED DRAWER 7, Y5N ONE ×3 (02:49→17:52)
[2017-04-09] MEDS: AZTREONAM 1 GM in DEXTROSE 5%-WATER - 50 ML IVPB SCH ×3 (02:50→17:56)
[2017-04-09] MEDS: methylPREDNISolone NA SUCC 40 MG/1 ML VIAL IVPB SCH ×3 (03:18→17:56)
[2017-04-09] MEDS: NYSTATIN 500,000 UNITS/5 ML SUSPENSION PO SCH ×3 (06:13→22:13)
[2017-04-09] MEDS: LEVOTHYROXINE NA 25 MCG TABLET (FP) PO SCH (06:13)
[2017-04-09] MEDS: INSULIN SLIDING SCALE (NOVOLOG) 1 VIAL SQ SCH ×4 (06:50→22:20)
[2017-04-09 07:59] LABS: MCH 28.6 pg (25.7-33.7); MCHC 32.6 g/dl (32.0-36.0); MEAN CELL VOLUME 87.7 fl (80-96); MEAN PLT VOLUME 8.2 fl (7.5-11.1); PLATELET COUNT 216 K/MM3 (134-434); RDW 17.4 % (11.6-15.6); WHITE BLOOD COUNT 12.7 K/mm3 (4.0-10.0)
[2017-04-09 08:22] LABS: CHOLESTEROL 159 mg/dL (50-200)
[2017-04-09 08:25] LABS: LDL CHOLESTEROL (ONLY SJRH) 80 mg/dL (5-100)
[2017-04-09 08:34] LABS: ALBUMIN 2.6 g/dl (3.4-5.0); ALK PHOS 62 U/L (45-117); ANION GAP 7 (8-16); BILIRUBIN,TOTAL 0.6 mg/dL (0.2-1.0); CALCIUM 8.5 mg/dL (8.5-10.1); CO2 32 mmol/L (21-32); CREATININE 0.8 mg/dL (0.55-1.02); GLUCOSE,RANDOM 196 mg/dL (74-106); SGOT/AST 31 U/L (15-37); SGPT/ALT 57 U/L (12-78); TOT PROT 5.1 g/dl (6.4-8.2)
[2017-04-09] MEDS ORDERED: levETIRAcetam 250 MG TABLET (FP) PO ONE ×2 (09:01→21:42)
[2017-04-09] MEDS ORDERED: levETIRAcetam 500 MG TABLET (FP) PO ONE ×2 (09:02→21:42)
[2017-04-09] MEDS: HYDROCHLOROTHIAZIDE 25 MG TABLET (FP) PO SCH (09:13)
[2017-04-09] MEDS: guaiFENesin 600 MG TABLET.ER (FP) PO SCH ×2 (09:13→22:14)
[2017-04-09] MEDS: LOSARTAN POTASSIUM 50 MG TABLET (FP) PO SCH (09:13)
[2017-04-09] MEDS: LEVETIRACETAM 250 MG, LEVETIRACETAM 500 MG PO SCH ×3 (09:13→22:14)
[2017-04-09] MEDS: FOLIC ACID 1 MG TABLET (FP) PO SCH (09:13)
[2017-04-09] MEDS: PANTOPRAZOLE 40 MG TABLET (FP) PO SCH (09:13)
[2017-04-09] MEDS: BUDESONIDE/FORMETEROL FUMARATE 160/4.5 mcg INHALER IH SCH ×2 (09:17→22:00)
[2017-04-09] MEDS: SODIUM CHLORIDE NASAL SPRAY 44 ML BOTTLE NS PRN (09:18)
[2017-04-09 10:52] LABS: INR 2.91 (0.82-1.09); PROTHROMBIN TIME (PATIENT) 32.7 SEC (9.98-11.88)
[2017-04-09 11:01] LABS: PLATELET ESTIMATE ADEQUATE (NORMAL)
[2017-04-09] MEDS ORDERED: INSULIN (NOVOLOG) ASPART 100 UNITS/ML 10ML VIAL ONE ×2 (11:38→22:17)
--- NOTE | 2017-04-09 12:05 | CON.CARD ---
Consult Consult Specialty:: Cardiology Referred by:: Hospitalist Medicine Reason for Consultation:: Cerebrovascular disese with CV risk factors - History of Present Illness Chief Complaint: Cough, weakness and fatigue History of Present Illness: 75 yo F history DVT on coumadin per INR, CAD, HTN, TIA, chol, asthma, seizure d/ o presented dyspnea, cough, dizziness, weakness and fatigue referable to atypical PNA. Denies chest pain, SOB, recent seizure activity, true syncope, palpitations, orthopnea, PND or LE edema. - History Source History Provided By: Patient Limitations to Obtaining History: Language Barrier - Past Medical History [employer]: Yes: CVA, Seizure ( last seizure >10yrs ago), Vertigo Cardio/Vascular: Yes: HTN Pulmonary: Yes: Asthma Gastrointestinal: Yes: Gastritis, Peptic Ulcer Disease Musculoskeletal: Yes: Other (arthritis (type not specificed)) ENT: Yes: Sinusitis Endocrine: Yes: Hypothyroidism Additional Medical History: DVTs, HPL - Past Surgical History Past Surgical History: Yes: Breast Biopsy, Hysterectomy - Alcohol/Substance Use Hx Alcohol Use: No History of Substance Use: reports: None - Smoking History Smoking history: Never smoked Have you smoked in the past 12 months: No Aproximately how many cigarettes per day: 0 - Social History Occupation: retired 20 yrs ago History of Recent Travel: Yes (traveled from [place]) Home Medications - Allergies Allergies/Adverse Reactions: Allergies Allergy/AdvReac Type Severity Reaction Status Date / Time Penicillins Allergy Swelling Verified 04/04/17 17:50 - Home Medications Home Medications: Ambulatory Orders Cholecalciferol (Vitamin D3) [Vitamin D-3] 10,000 unit PO WEEKLY 04/01/13 Montelukast Na [Singulair -] 10 mg PO HS 04/01/13 Losartan/Hydrochlorothiazide [Losartan-Hctz 100-25 mg Tablet] 1 each PO DAILY Albuterol 0.083% Nebulizer Prabha [Ventolin 0.083% Nebulizer Soln -] 1 neb NEB Q6H PRN #20 vial 07/26/16 Levetiracetam [Keppra -] 750 mg PO BID 07/26/16 Levothyroxine [Synthroid -] 25 mcg PO DAILY 07/26/16 Benzonatate [Tessalon Perle -] 200 mg PO DAILY 08/09/16 Folic Acid 1 mg PO DAILY 08/09/16 Atorvastatin Ca [Lipitor] 40 mg PO HS #30 tablet 08/11/16 Doxycycline Hyclate 100 mg PO BID #10 capsule 08/11/16 Meclizine HCl [Antivert -] 12.5 mg PO TID #15 tablet 08/11/16 Nystatin 100,000 unit PO TID 04/05/17 Prednisone [Deltasone -] 20 mg PO DAILY 04/05/17 Warfarin Sodium [Coumadin] 2 mg PO ASDIR 04/05/17 Warfarin Sodium [Coumadin] 2.5 mg PO ASDIR 04/05/17 Family Disease History - Family Disease History Family Disease History: Diabetes: Father ( of [place]), Mother ( of uterine cancer), Heart Disease: Father, Respiratory: Sister (asthma) Review of Systems - Review of Systems Constitutional: reports: Weakness Respiratory: reports: Cough, SOB Neurological: reports: Dizziness Vital Signs: Vital Signs Temperature 98.5 F 04/09/17 09:11 Pulse Rate 98 H 04/09/17 09:11 Respiratory Rate 20 04/09/17 09:11 Blood Pressure 152/80 04/09/17 09:11 O2 Sat by Pulse Oximetry (%) 96 04/08/17 21:00 Constitutional: Yes: No Distress, Calm Neck: Yes: Supple Respiratory: Yes: Regular, Diminished Gastrointestinal: Yes: Normal Bowel Sounds, Soft, Abdomen, Obese Cardiovascular: Yes: Regular Rate and Rhythm JVD: No Carotid Bruit: No Heart Sounds: Yes: S1, S2 Murmur: Yes: Systolic Murmur, Grade 1 Edema: Yes Edema: LLE: 1+, RLE: 1+ - Other Data Labs, Other Data: CBC, BMP 04/09/17 06:38 04/09/17 06:38 INR, PTT INR 2.91 (0.82-1.09) H 04/09/17 10:28 ST @ 104 PAC nonspec T wave changes Imaging - Results Cat Scan: Report Reviewed (04/04/2017 Perihilar predominant ground glass densities 04/09/2017 No acute sinusitis) Problem List - Problems (1) Acute hypoxemic respiratory failure Code(s): J96.01 - ACUTE RESPIRATORY FAILURE WITH HYPOXIA (2) Atypical pneumonia Code(s): J18.9 - PNEUMONIA, UNSPECIFIED ORGANISM (3) DVT (deep venous thrombosis) Code(s): I82.409 - ACUTE EMBOLISM AND THOMBOS UNSP DEEP VN UNSP LOWER EXTREMITY Qualifiers: DVT location: lower extremity Chronicity: chronic (4) Hyperlipemia Code(s): E78.5 - HYPERLIPIDEMIA, UNSPECIFIED Qualifiers: Hyperlipidemia type: pure hypercholesterolemia Qualified Code(s): E78.00 - Pure hypercholesterolemia, unspecified; E78.0 - Pure hypercholesterolemia (5) Hypertension Code(s): I10 - ESSENTIAL (PRIMARY) HYPERTENSION Qualifiers: Hypertension type: essential hypertension Qualified Code(s): I10 - Essential (primary) hypertension (6) Seizure disorder Code(s): G40.909 - EPILEPSY, UNSP, NOT INTRACTABLE, WITHOUT STATUS EPILEPTICUS (7) Hypothyroidism Code(s): E03.9 - HYPOTHYROIDISM, UNSPECIFIED Qualifiers: Hypothyroidism type: unspecified Qualified Code(s): E03.9 - Hypothyroidism, unspecified Assessment/Plan 04/07/2017 Echo: Normal LV size and fxn, mild MARLY, mod , mild MR, TR RVSP 40- 50 mmHg 1. Acute hypoxemic respiratory failure with atypical PNA 2. Recurrent DVTs on coumadin per INR 3. HTN 4. Hyperlipidemia 5. Seizure d/o 6. Hypothyroidism 7. Leukocytosis improving P:1. Complete abx course, steroid taper, BD, O2 as needed, Singulair 2. Lactate stablized 3. Continue Hyzaar 100/25 qd, Lipitor 40 qhs, 4. Coumadin per INR 5. Thank you for consultative opportunity
--- NOTE | 2017-04-09 12:29 | PN ---
Progress Note, Physician History of Present Illness: pulmonary alert,nad,-resp distres,,less cough. sinus ct negative - Current Medication List Current Medications: Active Medications Acetaminophen (Tylenol -) 650 mg PO Q6H PRN PRN Reason: FEVER OR PAIN Albuterol/Ipratropium (Duoneb -) 1 amp NEB QIDR [facility] Last Admin: 04/09/17 11:25 Dose: 1 amp Atorvastatin Calcium (Lipitor -) 40 mg PO HS [facility] Last Admin: 04/08/17 21:26 Dose: 40 mg Budesonide/Formoterol Fumarate (Symbicort 160/4.5mcg -) 2 puff IH BID [facility] Last Admin: 04/09/17 09:17 Dose: 2 puff Folic Acid (Folic Acid -) 1 mg PO DAILY [facility] Last Admin: 04/09/17 09:13 Dose: 1 mg Guaifenesin (Mucinex -) 600 mg PO BID [facility] Last Admin: 04/09/17 09:13 Dose: 600 mg Hydrochlorothiazide (Hctz -) 25 mg PO DAILY [facility] Last Admin: 04/09/17 09:13 Dose: 25 mg Aztreonam 1 gm/ Dextrose 50 mls @ 100 mls/hr IVPB Q8H-IV [facility] PRN Reason: Protocol Last Admin: 04/09/17 09:13 Dose: 100 mls/hr Insulin Aspart (Novolog Vial Sliding Scale -) 1 vial SQ ACHS [facility] PRN Reason: Protocol Last Admin: 04/09/17 11:40 Dose: 2 units Levetiracetam 250 mg/ (Levetiracetam 500 mg) 750 mg PO BID [facility] Last Admin: 04/09/17 10:09 Dose: Not Given Levothyroxine Sodium (Synthroid -) 25 mcg PO DAILY@0700 [facility] Last Admin: 04/09/17 06:13 Dose: 25 mcg Losartan Potassium (Cozaar -) 100 mg PO DAILY [facility] Last Admin: 04/09/17 09:13 Dose: 100 mg Methylprednisolone Sodium Succinate (Solu-Medrol -) 40 mg IVPB Q6H-IV [facility] Last Admin: 04/09/17 09:13 Dose: 40 mg Montelukast Sodium (Singulair -) 10 mg PO HS [facility] Last Admin: 04/08/17 21:26 Dose: 10 mg Nystatin (Nystatin Oral Suspension -) 500,000 units PO TID [facility] Last Admin: 04/09/17 06:13 Dose: 500,000 units Pantoprazole Sodium (Protonix -) 40 mg PO DAILY [facility] Last Admin: 04/09/17 09:13 Dose: 40 mg Sodium Chloride ([place] Nasal [place] -) 2 spray NS BID PRN PRN Reason: NASAL CONGESTION Last Admin: 04/09/17 09:18 Dose: 2 spray Warfarin Sodium (Coumadin -) 2 mg PO DAILY@1800 [facility] Last Admin: 04/08/17 17:50 Dose: 2 mg - Objective Vital Signs: Vital Signs Temperature 98.5 F 04/09/17 09:11 Pulse Rate 98 H 04/09/17 09:11 Respiratory Rate 20 04/09/17 09:11 Blood Pressure 152/80 04/09/17 09:11 O2 Sat by Pulse Oximetry (%) 96 04/08/17 21:00 Constitutional: Yes: Well Nourished, Calm Eyes: Yes: WNL HENT: Yes: WNL Neck: Yes: Supple Cardiovascular: Yes: Regular Rate and Rhythm, S1, S2 Respiratory: Yes: Diminished Gastrointestinal: Yes: Normal Bowel Sounds, Soft Extremities: Yes: WNL Edema: No Labs: CBC, BMP 04/09/17 06:38 04/09/17 06:38 INR, PTT INR 2.91 (0.82-1.09) H 04/09/17 10:28 Laboratory Tests 04/09/17 06:38 Lactic Acid 4.2 H* Problem List - Problems (1) Atypical pneumonia Code(s): J18.9 - PNEUMONIA, UNSPECIFIED ORGANISM (2) DVT prophylaxis Code(s): [id number] - (3) Dyspnea and respiratory abnormalities Code(s): R06.00 - DYSPNEA, UNSPECIFIED R06.89 - OTHER ABNORMALITIES OF BREATHING (4) DVT (deep venous thrombosis) Code(s): I82.409 - ACUTE EMBOLISM AND THOMBOS UNSP DEEP VN UNSP LOWER EXTREMITY (5) Hyperlipemia Code(s): E78.5 - HYPERLIPIDEMIA, UNSPECIFIED (6) Hypertension Code(s): I10 - ESSENTIAL (PRIMARY) HYPERTENSION (7) Acute hypoxemic respiratory failure Code(s): J96.01 - ACUTE RESPIRATORY FAILURE WITH HYPOXIA Assessment/Plan Problem List - Problems (1) Atypical pneumonia Code(s): J18.9 - PNEUMONIA, UNSPECIFIED ORGANISM (2) DVT prophylaxis Code(s): EJK2661 - (3) Dyspnea and respiratory abnormalities Code(s): R06.00 - DYSPNEA, UNSPECIFIED R06.89 - OTHER ABNORMALITIES OF BREATHING (4) DVT (deep venous thrombosis) Code(s): I82.409 - ACUTE EMBOLISM AND THOMBOS UNSP DEEP VN UNSP LOWER EXTREMITY (5) Hyperlipemia Code(s): E78.5 - HYPERLIPIDEMIA, UNSPECIFIED (6) Hypertension Code(s): I10 - ESSENTIAL (PRIMARY) HYPERTENSION (7) Acute hypoxemic respiratory failure Code(s): J96.01 - ACUTE RESPIRATORY FAILURE WITH HYPOXIA ACUTE HYPOXEMIC RESPIRATORY FAILURE BILATERAL GROUND GLASS INFILTRATES -> (?) PULMONARY VASCULAR CONGESTION (? ) INTERSTITIAL PROCESS ASTHMA EXACERBATION SINUSITIS H/O RECURRENT DVTS HTN HYPOTHYROID PUD PULMONARY HTN ELEVATED LACTATE STABLE PLAN IV ANTIBIOTICS PER ID INHALED BRONCHODILATORS MEDROL TAPER SUPPLEMENTAL O2 FOLLOW LACTIC ACID DR FLORES
--- NOTE | 2017-04-09 13:28 | PN ---
Physical Exam: SUBJECTIVE: Patient seen and examined at the bedside. She was ambulating without oxygen around her room and reports she is still having intermittent dyspnea on exam. OBJECTIVE: WBC trending down, remains afebrile ambulating in room on my exam, tolerating room air Patient states that she is oxygen dependent at home @ 2 liters but can tolerate short periods per day without oxygen She states she feels the same as she did yesterday, but on my exam appears to be clinically improving Sinus CT reviewed Persistent lactic acidosis @4.2, likely secondary to albuterol, but it can also be due to Keppra use vs. infection or can be due to increased respiratory muscle use. However, lactic acidosis likely due to albuterol use. I would not stop the Keppra and restart another anti-convulsant after speaking with the neurologist as it can trigger a seizure. Patient needs follow up and she travels from [place] to [place] frequently, unclear is she is a good follow up with her neurologist. Vital Signs Period Temp Pulse Resp BP Sys/[place] Pulse Ox Last 24 Hr 97.7 F-98.5 F 82-104 20-20 117-152/53-80 96-99 GENERAL: The patient is awake, alert, and fully oriented, in no acute distress. HEAD: Normal with no signs of trauma. + sinus pain and pressure improving EYES: PERRL, extraocular movements intact, sclera anicteric, conjunctiva clear. No ptosis. ENT: Ears normal, nares patent, oropharynx clear without exudates, moist mucous membranes. NECK: Trachea midline, full range of motion, supple. LUNGS: + scattered expiratory wheezing HEART: Regular rate and rhythm ABDOMEN: Soft, nontender, nondistended, normoactive bowel sounds, no guarding, no rebound, no hepatosplenomegaly, no masses. EXTREMITIES: 2+ pulses, warm, well-perfused, no edema. NEUROLOGICAL: Normal speech, steady gait PSYCH: Normal mood, normal affect. SKIN: Warm, dry, normal turgor, no rashes or lesions noted Laboratory Results - last 24 hr 04/08/17 04/08/17 04/08/17 14:10 14:10 17:52 WBC RBC Hgb Hct MCV MCH MCHC RDW Plt Count MPV Neutrophils % Lymphocytes % Monocytes % Band Neutrophils Differential Comment Platelet Estimate INR Sodium Potassium Chloride Carbon Dioxide Anion Gap BUN Creatinine Creat Clearance w eGFR POC Glucometer 236 Random Glucose Hemoglobin A1c % 7.1 H D Lactic Acid 4.4 H* Calcium Total Bilirubin AST ALT Alkaline Phosphatase Total Protein Albumin Triglycerides Cholesterol Total LDL Cholesterol HDL Cholesterol 04/08/17 04/09/17 04/09/17 21:25 06:15 06:38 WBC 12.7 H RBC 4.08 Hgb 11.7 Hct 35.8 MCV 87.7 MCH 28.6 MCHC 32.6 RDW 17.4 H Plt Count 216 D MPV 8.2 Neutrophils % 90.0 H Lymphocytes % 7.0 L D Monocytes % 1.0 L Band Neutrophils 2.0 Differential Comment Slide scanned Platelet Estimate Adequate INR Sodium Potassium Chloride Carbon Dioxide Anion Gap BUN Creatinine Creat Clearance w eGFR POC Glucometer 199 185 Random Glucose Hemoglobin A1c % Lactic Acid Calcium Total Bilirubin AST ALT Alkaline Phosphatase Total Protein Albumin Triglycerides Cholesterol Total LDL Cholesterol HDL Cholesterol 04/09/17 04/09/17 04/09/17 06:38 06:38 06:38 WBC RBC Hgb Hct MCV MCH MCHC RDW Plt Count MPV Neutrophils % Lymphocytes % Monocytes % Band Neutrophils Differential Comment Platelet Estimate INR Sodium 142 Potassium 4.0 Chloride 103 Carbon Dioxide 32 D Anion Gap 7 L BUN 29 H Creatinine 0.8 Creat Clearance w eGFR > 60 POC Glucometer Random Glucose 196 H Hemoglobin A1c % Lactic Acid 4.2 H* Calcium 8.5 Total Bilirubin 0.6 D AST 31 ALT 57 Alkaline Phosphatase 62 Total Protein 5.1 L Albumin 2.6 L Triglycerides 111 D Cholesterol 159 Total LDL Cholesterol 80 HDL Cholesterol 78 H D 04/09/17 04/09/17 10:28 11:36 WBC RBC Hgb Hct MCV MCH MCHC RDW Plt Count MPV Neutrophils % Lymphocytes % Monocytes % Band Neutrophils Differential Comment Platelet Estimate INR 2.91 H Sodium Potassium Chloride Carbon Dioxide Anion Gap BUN Creatinine Creat Clearance w eGFR POC Glucometer 170 Random Glucose Hemoglobin A1c % Lactic Acid Calcium Total Bilirubin AST ALT Alkaline Phosphatase Total Protein Albumin Triglycerides Cholesterol Total LDL Cholesterol HDL Cholesterol Active Medications Generic Name Dose Route Start Last Admin Trade Name Freq PRN Reason Stop Dose Admin Acetaminophen 650 mg 04/08/17 06:24 Tylenol - PO Q6H PRN FEVER OR PAIN Albuterol/Ipratropium 1 amp 04/05/17 12:00 04/09/17 11:25 Duoneb - NEB 1 amp QIDR [facility] Administration Atorvastatin Calcium 40 mg 07/10/17 22:00 04/08/17 21:26 Lipitor - PO 40 mg HS [facility] Administration Budesonide/Formoterol Fumarate 2 puff 04/05/17 22:00 04/09/17 09:17 Symbicort 160/4.5mcg - IH 2 puff BID [facility] Administration Folic Acid 1 mg 04/05/17 10:00 04/09/17 09:13 Folic Acid - PO 1 mg DAILY [facility] Administration Guaifenesin 600 mg 04/07/17 22:00 04/09/17 09:13 Mucinex - PO 600 mg BID [facility] Administration Hydrochlorothiazide 25 mg 04/05/17 10:00 04/09/17 09:13 Hctz - PO 25 mg DAILY [facility] Administration Aztreonam 1 gm/ Dextrose 50 mls @ 100 mls/hr 04/05/17 18:15 04/09/17 09:13 IVPB 100 mls/hr Q8H-IV [facility] Administration Protocol Insulin Aspart 1 vial 04/08/17 11:00 04/09/17 11:40 Novolog Vial Sliding Scale - SQ 2 units ACHS [facility] Administration Protocol Levetiracetam 250 mg/ 750 mg 04/05/17 10:00 04/09/17 10:09 Levetiracetam 500 mg PO Not Given BID [facility] Levothyroxine Sodium 25 mcg 04/05/17 07:00 04/09/17 06:13 Synthroid - PO 25 mcg DAILY@0700 [facility] Administration Losartan Potassium 100 mg 04/05/17 10:00 04/09/17 09:13 Cozaar - PO 100 mg DAILY [facility] Administration Methylprednisolone Sodium Succinate 40 mg 04/09/17 18:00 Solu-Medrol - IVPB Q8H-IV [facility] Montelukast Sodium 10 mg 04/05/17 22:00 04/08/17 21:26 Singulair - PO 10 mg HS [facility] Administration Nystatin 500,000 units 04/08/17 15:56 04/09/17 06:13 Nystatin Oral Suspension - PO 500,000 units TID [facility] Administration Pantoprazole Sodium 40 mg 04/08/17 16:45 04/09/17 09:13 Protonix - PO 40 mg DAILY [facility] Administration Sodium Chloride 2 spray 04/05/17 17:27 04/09/17 09:18 [place] Nasal [place] - NS 2 spray BID PRN Administration NASAL CONGESTION Warfarin Sodium 2 mg 04/08/17 18:00 04/08/17 17:50 Coumadin - PO 2 mg DAILY@1800 [facility] Administration ASSESSMENT/PLAN: Patient is a 76 year old female with a significant past medical history of hypertension, hyperlipidemia, asthma, 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 Patient presented to the ER on 04/04/2017 with shortness of breath, dizziness, and fatigue. CT angiogram of the chest 04/04/17: No gross pulmonary embolism is seen to the lobar level Sinus CT 04/08/2017: minimal bilateral ethmoid sinus mucosal thickening ID: Sepsis secondary to pneumonia vs. sinusitis vs. acute asthma exacerbation - improving WBC trending down, however, leukocytosis may be due to iv steriods vs. infection + sinus tenderness and pressure on clinical exam, CT of sinus shows minimal bilateral ethmoid sinus mucosal thickening On Aztreonam 1 gram as per ID Has persistent lactic acidosis not responding to fluid boluses, but likely due to albuterol use On Singuliar, 2 liter of oxygen Patient oxygen dependent @ home On Solumedrol 40mg ivpb q8 Pulmonary following Persistent lactic acidosis Assessment/Plan: Persistent lactic acidosis despite aggressive fluid hydration: can be due to asthma exacerbation vs. Keppra use vs. 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 Fluids: tolerating PO Electrolytes: monitor bmp Nutrition: diabetic diet Prophylaxis: DVT: On Coumadin per INR GI: Protonix while on steroids Disposition: Requires inpatient hospitalization. Full code. Visit type - Emergency Visit Emergency Visit: Yes ED Registration Date: 04/04/17 Care time: The patient presented to the Emergency Department on the above date and was hospitalized for further evaluation of their emergent condition. - New Patient This patient is new to me today: No - Critical Care Critical Care patient: No - Discharge Referral Referred to [facility] No
--- NOTE | 2017-04-09 14:13 | PN ---
Progress Note, Physician History of Present Illness: no new events stable sinus ct result noted - Current Medication List Current Medications: Active Medications Acetaminophen (Tylenol -) 650 mg PO Q6H PRN PRN Reason: FEVER OR PAIN Albuterol/Ipratropium (Duoneb -) 1 amp NEB QIDR [facility] Last Admin: 04/09/17 11:25 Dose: 1 amp Atorvastatin Calcium (Lipitor -) 40 mg PO HS [facility] Last Admin: 04/08/17 21:26 Dose: 40 mg Budesonide/Formoterol Fumarate (Symbicort 160/4.5mcg -) 2 puff IH BID [facility] Last Admin: 04/09/17 09:17 Dose: 2 puff Folic Acid (Folic Acid -) 1 mg PO DAILY [facility] Last Admin: 04/09/17 09:13 Dose: 1 mg Guaifenesin (Mucinex -) 600 mg PO BID [facility] Last Admin: 04/09/17 09:13 Dose: 600 mg Hydrochlorothiazide (Hctz -) 25 mg PO DAILY [facility] Last Admin: 04/09/17 09:13 Dose: 25 mg Aztreonam 1 gm/ Dextrose 50 mls @ 100 mls/hr IVPB Q8H-IV [facility] PRN Reason: Protocol Last Admin: 04/09/17 09:13 Dose: 100 mls/hr Insulin Aspart (Novolog Vial Sliding Scale -) 1 vial SQ ACHS [facility] PRN Reason: Protocol Last Admin: 04/09/17 11:40 Dose: 2 units Levetiracetam 250 mg/ (Levetiracetam 500 mg) 750 mg PO BID [facility] Last Admin: 04/09/17 10:09 Dose: Not Given Levothyroxine Sodium (Synthroid -) 25 mcg PO DAILY@0700 [facility] Last Admin: 04/09/17 06:13 Dose: 25 mcg Losartan Potassium (Cozaar -) 100 mg PO DAILY [facility] Last Admin: 04/09/17 09:13 Dose: 100 mg Methylprednisolone Sodium Succinate (Solu-Medrol -) 40 mg IVPB Q8H-IV [facility] Montelukast Sodium (Singulair -) 10 mg PO HS [facility] Last Admin: 04/08/17 21:26 Dose: 10 mg Nystatin (Nystatin Oral Suspension -) 500,000 units PO TID [facility] Last Admin: 04/09/17 06:13 Dose: 500,000 units Pantoprazole Sodium (Protonix -) 40 mg PO DAILY [facility] Last Admin: 04/09/17 09:13 Dose: 40 mg Sodium Chloride ([place] Nasal [place] -) 2 spray NS BID PRN PRN Reason: NASAL CONGESTION Last Admin: 04/09/17 09:18 Dose: 2 spray Warfarin Sodium (Coumadin -) 2 mg PO DAILY@1800 [facility] Last Admin: 04/08/17 17:50 Dose: 2 mg - Objective Vital Signs: Vital Signs Temperature 98.5 F 04/09/17 09:11 Pulse Rate 98 H 04/09/17 09:11 Respiratory Rate 20 04/09/17 09:11 Blood Pressure 152/80 04/09/17 09:11 O2 Sat by Pulse Oximetry (%) 99 04/09/17 09:00 Constitutional: Yes: No Distress, Calm Cardiovascular: Yes: S1, S2 Gastrointestinal: Yes: Normal Bowel Sounds, Soft Musculoskeletal: Yes: WNL Extremities: Yes: WNL Neurological: Yes: Alert, Oriented Labs: CBC, BMP 04/09/17 06:38 04/09/17 06:38 INR, PTT INR 2.91 (0.82-1.09) H 04/09/17 10:28 - ....Imaging Cat Scan: Report Reviewed, Image Reviewed Assessment/Plan 76 y/o with a PMHx of: Asthma, HTN, HLD, Seizures, DVTs (on Coumadin). Presents to the ED SOB, Cough, Rhinnorhea. Admitted M/S Atypical Pneumonia for further evaluation of their emergent condition. 1. Atypical Pneumonia 2. Hypoxemia 3. Asthma 4. Supratherapuetic INR 5. DVTs 6. Hypertension 7. Hyperlipidemia 8. Seizures 9 leukocytosis 10 lactic acidosis 11 thrush Problem List - Problems (1) Atypical pneumonia Code(s): J18.9 - PNEUMONIA, UNSPECIFIED ORGANISM (2) DVT prophylaxis Code(s): DIS8116 - (3) Dyspnea and respiratory abnormalities Code(s): R06.00 - DYSPNEA, UNSPECIFIED R06.89 - OTHER ABNORMALITIES OF BREATHING (4) DVT (deep venous thrombosis) Code(s): I82.409 - ACUTE EMBOLISM AND THOMBOS UNSP DEEP VN UNSP LOWER EXTREMITY (5) Hyperlipemia Code(s): E78.5 - HYPERLIPIDEMIA, UNSPECIFIED (6) Hypertension Code(s): I10 - ESSENTIAL (PRIMARY) HYPERTENSION (7) Acute hypoxemic respiratory failure Code(s): J96.01 - ACUTE RESPIRATORY FAILURE WITH HYPOXIA plan continue current abx wbc trending down once wbc normal will switch to oral lactic acid still higher has increased
[2017-04-09] MEDS ORDERED: WARFARIN NA 1 MG TABLET (FP) PO SCH (18:00)
[2017-04-09] MEDS: INSULIN DETEMIR 100 UNITS/ML MDV SQ SCH (22:14)
[2017-04-09] MEDS: ATORVASTATIN CA 40 MG TABLET (FP) PO SCH (22:14)
[2017-04-09] MEDS: MONTELUKAST NA 10 MG TABLET PO SCH (22:14)
[2017-04-10] MEDS: ALBUTEROL SO4 2.5/IPRATROPIUM 0.5 INH SOL 3 ML VIAL.NEB. NEB SCH ×4 (00:15→17:46)
[2017-04-10] MEDS ORDERED: PT OWN MED DRAWER 7, Y5N ONE ×3 (01:10→15:03)
[2017-04-10] MEDS: AZTREONAM 1 GM in DEXTROSE 5%-WATER - 50 ML IVPB SCH ×3 (02:29→17:43)
[2017-04-10] MEDS: methylPREDNISolone NA SUCC 40 MG/1 ML VIAL IVPB SCH ×3 (02:55→17:44)
[2017-04-10] MEDS: LEVOTHYROXINE NA 25 MCG TABLET (FP) PO SCH (06:29)
[2017-04-10] MEDS: NYSTATIN 500,000 UNITS/5 ML SUSPENSION PO SCH ×3 (06:30→21:31)
[2017-04-10] MEDS: INSULIN SLIDING SCALE (NOVOLOG) 1 VIAL SQ SCH ×4 (06:30→21:36)
[2017-04-10 07:39] LABS: MCH 28.8 pg (25.7-33.7); MCHC 32.7 g/dl (32.0-36.0); MEAN CELL VOLUME 88.1 fl (80-96); MEAN PLT VOLUME 8.2 fl (7.5-11.1); PLATELET COUNT 203 K/MM3 (134-434); RDW 17.5 % (11.6-15.6); WHITE BLOOD COUNT 12.6 K/mm3 (4.0-10.0)
[2017-04-10 08:00] LABS: ALBUMIN 2.7 g/dl (3.4-5.0); CALCIUM 8.5 mg/dL (8.5-10.1)
[2017-04-10 08:04] LABS: ALK PHOS 63 U/L (45-117); ANION GAP 7 (8-16); BILIRUBIN,TOTAL 0.5 mg/dL (0.2-1.0); CO2 34 mmol/L (21-32); CREATININE 0.8 mg/dL (0.55-1.02); GLUCOSE,RANDOM 157 mg/dL (74-106); INR 3.33 (0.82-1.09); PROTHROMBIN TIME (PATIENT) 37.5 SEC (9.98-11.88); SGOT/AST 56 U/L (15-37); SGPT/ALT 77 U/L (12-78); TOT PROT 5.2 g/dl (6.4-8.2)
[2017-04-10 08:55] LABS: PLATELET ESTIMATE ADEQUATE (NORMAL)
[2017-04-10] MEDS ORDERED: levETIRAcetam 250 MG TABLET (FP) PO ONE ×2 (09:38→21:29)
[2017-04-10] MEDS ORDERED: levETIRAcetam 500 MG TABLET (FP) PO ONE ×2 (09:38→21:29)
[2017-04-10] MEDS: LEVETIRACETAM 250 MG, LEVETIRACETAM 500 MG PO SCH ×2 (09:42→21:31)
[2017-04-10] MEDS: HYDROCHLOROTHIAZIDE 25 MG TABLET (FP) PO SCH (09:43)
[2017-04-10] MEDS: guaiFENesin 600 MG TABLET.ER (FP) PO SCH ×2 (09:43→21:32)
[2017-04-10] MEDS: PANTOPRAZOLE 40 MG TABLET (FP) PO SCH (09:43)
[2017-04-10] MEDS: FOLIC ACID 1 MG TABLET (FP) PO SCH (09:43)
[2017-04-10] MEDS: LOSARTAN POTASSIUM 50 MG TABLET (FP) PO SCH (09:43)
[2017-04-10] MEDS: BUDESONIDE/FORMETEROL FUMARATE 160/4.5 mcg INHALER IH SCH ×2 (09:43→21:45)
[2017-04-10] MEDS ORDERED: INSULIN (NOVOLOG) ASPART 100 UNITS/ML 10ML VIAL ONE ×2 (11:43→21:44)
--- NOTE | 2017-04-10 11:45 | PN ---
Progress Note, Physician History of Present Illness: PULMONARY ALERT,LESS DYSPNEIC - Current Medication List Current Medications: Active Medications Acetaminophen (Tylenol -) 650 mg PO Q6H PRN PRN Reason: FEVER OR PAIN Albuterol/Ipratropium (Duoneb -) 1 amp NEB QIDR [facility] Last Admin: 04/10/17 11:03 Dose: 1 amp Atorvastatin Calcium (Lipitor -) 40 mg PO [facility] Last Admin: 04/09/17 22:14 Dose: 40 mg Budesonide/Formoterol Fumarate (Symbicort 160/4.5mcg -) 2 puff IH BID [facility] Last Admin: 04/10/17 09:43 Dose: 2 puff Folic Acid (Folic Acid -) 1 mg PO DAILY [facility] Last Admin: 04/10/17 09:43 Dose: 1 mg Guaifenesin (Mucinex -) 600 mg PO BID [facility] Last Admin: 04/10/17 09:43 Dose: 600 mg Hydrochlorothiazide (Hctz -) 25 mg PO DAILY [facility] Last Admin: 04/10/17 09:43 Dose: 25 mg Aztreonam 1 gm/ Dextrose 50 mls @ 100 mls/hr IVPB Q8H-IV [facility] PRN Reason: Protocol Last Admin: 04/10/17 09:42 Dose: 100 mls/hr Insulin Aspart (Novolog Vial Sliding Scale -) 1 vial SQ ACHS [facility] PRN Reason: Protocol Last Admin: 04/10/17 06:30 Dose: 2 units Insulin Detemir (Levemir Vial) 5 units SQ [facility] Last Admin: 04/09/17 22:14 Dose: 5 units Levetiracetam 250 mg/ (Levetiracetam 500 mg) 750 mg PO BID [facility] Last Admin: 04/10/17 09:42 Dose: 750 mg Levothyroxine Sodium (Synthroid -) 25 mcg PO DAILY@0700 [facility] Last Admin: 04/10/17 06:29 Dose: 25 mcg Losartan Potassium (Cozaar -) 100 mg PO DAILY [facility] Last Admin: 04/10/17 09:43 Dose: 100 mg Methylprednisolone Sodium Succinate (Solu-Medrol -) 40 mg IVPB Q8H-IV [facility] Last Admin: 04/10/17 09:42 Dose: 40 mg Montelukast Sodium (Singulair -) 10 mg PO [facility] Last Admin: 04/09/17 22:14 Dose: 10 mg Nystatin (Nystatin Oral Suspension -) 500,000 units PO TID [facility] Last Admin: 04/10/17 06:30 Dose: 500,000 units Pantoprazole Sodium (Protonix -) 40 mg PO DAILY [facility] Last Admin: 04/10/17 09:43 Dose: 40 mg Sodium Chloride ([place] Nasal [place] -) 2 spray NS BID PRN PRN Reason: NASAL CONGESTION Last Admin: 04/09/17 09:18 Dose: 2 spray - Objective Vital Signs: Vital Signs Temperature 98.6 F 04/10/17 08:05 Pulse Rate 91 H 04/10/17 11:02 Respiratory Rate 18 04/10/17 08:05 Blood Pressure 150/80 04/10/17 08:05 O2 Sat by Pulse Oximetry (%) 98 04/10/17 11:02 Constitutional: Yes: Well Nourished, Calm Eyes: Yes: WNL HENT: Yes: WNL Neck: Yes: WNL Cardiovascular: Yes: Regular Rate and Rhythm, S1, S2 Respiratory: Yes: Wheezes (SCATTERED WHEEZES) Gastrointestinal: Yes: Normal Bowel Sounds, Soft Extremities: Yes: WNL Edema: No Labs: CBC, BMP 04/10/17 06:00 04/10/17 06:00 INR, PTT INR 3.33 (0.82-1.09) H 04/10/17 06:00 Problem List - Problems (1) Atypical pneumonia Code(s): J18.9 - PNEUMONIA, UNSPECIFIED ORGANISM (2) DVT prophylaxis Code(s): [id number] - (3) Dyspnea and respiratory abnormalities Code(s): R06.00 - DYSPNEA, UNSPECIFIED R06.89 - OTHER ABNORMALITIES OF BREATHING (4) DVT (deep venous thrombosis) Code(s): I82.409 - ACUTE EMBOLISM AND THOMBOS UNSP DEEP VN UNSP LOWER EXTREMITY Qualifiers: DVT location: lower extremity Chronicity: chronic (5) Hyperlipemia Code(s): E78.5 - HYPERLIPIDEMIA, UNSPECIFIED Qualifiers: Hyperlipidemia type: pure hypercholesterolemia Qualified Code(s): E78.00 - Pure hypercholesterolemia, unspecified; E78.0 - Pure hypercholesterolemia (6) Hypertension Code(s): I10 - ESSENTIAL (PRIMARY) HYPERTENSION Qualifiers: Hypertension type: essential hypertension Qualified Code(s): I10 - Essential (primary) hypertension (7) Acute hypoxemic respiratory failure Code(s): J96.01 - ACUTE RESPIRATORY FAILURE WITH HYPOXIA Assessment/Plan Problem List - Problems (1) Atypical pneumonia Code(s): J18.9 - PNEUMONIA, UNSPECIFIED ORGANISM (2) DVT prophylaxis Code(s): [id number] - (3) Dyspnea and respiratory abnormalities Code(s): R06.00 - DYSPNEA, UNSPECIFIED R06.89 - OTHER ABNORMALITIES OF BREATHING (4) DVT (deep venous thrombosis) Code(s): I82.409 - ACUTE EMBOLISM AND THOMBOS UNSP DEEP VN UNSP LOWER EXTREMITY (5) Hyperlipemia Code(s): E78.5 - HYPERLIPIDEMIA, UNSPECIFIED (6) Hypertension Code(s): I10 - ESSENTIAL (PRIMARY) HYPERTENSION (7) Acute hypoxemic respiratory failure Code(s): J96.01 - ACUTE RESPIRATORY FAILURE WITH HYPOXIA ACUTE HYPOXEMIC RESPIRATORY FAILURE IMPROVING BILATERAL GROUND GLASS INFILTRATES -> (?) PULMONARY VASCULAR CONGESTION (? ) INTERSTITIAL PROCESS ASTHMA EXACERBATION SINUSITIS H/O RECURRENT DVTS HTN HYPOTHYROID PUD PULMONARY HTN ELEVATED LACTATE STABLE PLAN CONTINUE IV ANTIBIOTICS PER ID INHALED BRONCHODILATORS MEDROL TAPER SUPPLEMENTAL O2 FOLLOW LACTIC ACID DR FLORES
--- NOTE | 2017-04-10 12:33 | PN ---
Progress Note, Physician History of Present Illness: patient stable breathing well - Current Medication List Current Medications: Active Medications Acetaminophen (Tylenol -) 650 mg PO Q6H PRN PRN Reason: FEVER OR PAIN Albuterol/Ipratropium (Duoneb -) 1 amp NEB QIDR [facility] Last Admin: 04/10/17 11:03 Dose: 1 amp Atorvastatin Calcium (Lipitor -) 40 mg PO [facility] Last Admin: 04/09/17 22:14 Dose: 40 mg Budesonide/Formoterol Fumarate (Symbicort 160/4.5mcg -) 2 puff IH BID [facility] Last Admin: 04/10/17 09:43 Dose: 2 puff Folic Acid (Folic Acid -) 1 mg PO DAILY [facility] Last Admin: 04/10/17 09:43 Dose: 1 mg Guaifenesin (Mucinex -) 600 mg PO BID [facility] Last Admin: 04/10/17 09:43 Dose: 600 mg Hydrochlorothiazide (Hctz -) 25 mg PO DAILY [facility] Last Admin: 04/10/17 09:43 Dose: 25 mg Aztreonam 1 gm/ Dextrose 50 mls @ 100 mls/hr IVPB Q8H-IV [facility] PRN Reason: Protocol Last Admin: 04/10/17 09:42 Dose: 100 mls/hr Insulin Aspart (Novolog Vial Sliding Scale -) 1 vial SQ ACHS [facility] PRN Reason: Protocol Last Admin: 04/10/17 11:44 Dose: 4 units Insulin Detemir (Levemir Vial) 5 units SQ [facility] Last Admin: 04/09/17 22:14 Dose: 5 units Levetiracetam 250 mg/ (Levetiracetam 500 mg) 750 mg PO BID [facility] Last Admin: 04/10/17 09:42 Dose: 750 mg Levothyroxine Sodium (Synthroid -) 25 mcg PO DAILY@0700 [facility] Last Admin: 04/10/17 06:29 Dose: 25 mcg Losartan Potassium (Cozaar -) 100 mg PO DAILY [facility] Last Admin: 04/10/17 09:43 Dose: 100 mg Methylprednisolone Sodium Succinate (Solu-Medrol -) 40 mg IVPB Q8H-IV [facility] Last Admin: 04/10/17 09:42 Dose: 40 mg Montelukast Sodium (Singulair -) 10 mg PO [facility] Last Admin: 04/09/17 22:14 Dose: 10 mg Nystatin (Nystatin Oral Suspension -) 500,000 units PO TID [facility] Last Admin: 04/10/17 06:30 Dose: 500,000 units Pantoprazole Sodium (Protonix -) 40 mg PO DAILY [facility] Last Admin: 04/10/17 09:43 Dose: 40 mg Sodium Chloride ([place] Nasal [place] -) 2 spray NS BID PRN PRN Reason: NASAL CONGESTION Last Admin: 04/09/17 09:18 Dose: 2 spray - Objective Vital Signs: Vital Signs Temperature 98.6 F 04/10/17 08:05 Pulse Rate 91 H 04/10/17 11:02 Respiratory Rate 18 04/10/17 08:05 Blood Pressure 150/80 04/10/17 08:05 O2 Sat by Pulse Oximetry (%) 98 04/10/17 11:02 Constitutional: Yes: No Distress, Calm Cardiovascular: Yes: Regular Rate and Rhythm Respiratory: Yes: Regular, CTA Bilaterally Gastrointestinal: Yes: Normal Bowel Sounds, Soft Musculoskeletal: Yes: WNL Extremities: Yes: WNL Neurological: Yes: Alert, Oriented Psychiatric: Yes: Alert, Oriented Labs: CBC, BMP 04/10/17 06:00 04/10/17 06:00 INR, PTT INR 3.33 (0.82-1.09) H 04/10/17 06:00 Assessment/Plan 76 y/o with a PMHx of: Asthma, HTN, HLD, Seizures, DVTs (on Coumadin). Presents to the ED SOB, Cough, Rhinnorhea. Admitted M/S Atypical Pneumonia for further evaluation of their emergent condition. 1. Atypical Pneumonia 2. Hypoxemia 3. Asthma 4. Supratherapuetic INR 5. DVTs 6. Hypertension 7. Hyperlipidemia 8. Seizures 9 leukocytosis 10 lactic acidosis 11 thrush Problem List - Problems (1) Atypical pneumonia Code(s): J18.9 - PNEUMONIA, UNSPECIFIED ORGANISM (2) DVT prophylaxis Code(s): [id number] - (3) Dyspnea and respiratory abnormalities Code(s): R06.00 - DYSPNEA, UNSPECIFIED R06.89 - OTHER ABNORMALITIES OF BREATHING (4) DVT (deep venous thrombosis) Code(s): I82.409 - ACUTE EMBOLISM AND THOMBOS UNSP DEEP VN UNSP LOWER EXTREMITY (5) Hyperlipemia Code(s): E78.5 - HYPERLIPIDEMIA, UNSPECIFIED (6) Hypertension Code(s): I10 - ESSENTIAL (PRIMARY) HYPERTENSION (7) Acute hypoxemic respiratory failure Code(s): J96.01 - ACUTE RESPIRATORY FAILURE WITH HYPOXIA plan continue current abx wbc trending down tomorrow will be the last day of iv lactic acid down but still elevated
--- NOTE | 2017-04-10 12:49 | PN ---
Progress Note (short form) - Note Progress Note: Chief Complaint: Events noted, notes reviewed, continues to report cough and dyspnea with expiratory wheeze, complaining of lower chest and abdominal discomfort which is exacerbated by cough History of Present Illness: Seen and examined. Events noted, notes reviewed, continues to report cough and dyspnea with expiratory wheeze, complaining of lower chest and abdominal discomfort which is exacerbated by cough Medications: Current Medications Acetaminophen (Tylenol -) 650 mg PO Q6H PRN PRN Reason: FEVER OR PAIN Albuterol/Ipratropium (Duoneb -) 1 amp NEB QIDR [facility] Last Admin: 04/10/17 11:03 Dose: 1 amp Atorvastatin Calcium (Lipitor -) 40 mg PO HS [facility] Last Admin: 04/09/17 22:14 Dose: 40 mg Budesonide/Formoterol Fumarate (Symbicort 160/4.5mcg -) 2 puff IH BID [facility] Last Admin: 04/10/17 09:43 Dose: 2 puff Folic Acid (Folic Acid -) 1 mg PO DAILY [facility] Last Admin: 04/10/17 09:43 Dose: 1 mg Guaifenesin (Mucinex -) 600 mg PO BID [facility] Last Admin: 04/10/17 09:43 Dose: 600 mg Hydrochlorothiazide (Hctz -) 25 mg PO DAILY [facility] Last Admin: 04/10/17 09:43 Dose: 25 mg Aztreonam 1 gm/ Dextrose 50 mls @ 100 mls/hr IVPB Q8H-IV [facility] PRN Reason: Protocol Last Admin: 04/10/17 09:42 Dose: 100 mls/hr Insulin Aspart (Novolog Vial Sliding Scale -) 1 vial SQ ACHS [facility] PRN Reason: Protocol Last Admin: 04/10/17 11:44 Dose: 4 units Insulin Detemir (Levemir Vial) 5 units SQ HS [facility] Last Admin: 04/09/17 22:14 Dose: 5 units Levetiracetam 250 mg/ (Levetiracetam 500 mg) 750 mg PO BID [facility] Last Admin: 04/10/17 09:42 Dose: 750 mg Levothyroxine Sodium (Synthroid -) 25 mcg PO DAILY@0700 [facility] Last Admin: 04/10/17 06:29 Dose: 25 mcg Losartan Potassium (Cozaar -) 100 mg PO DAILY [facility] Last Admin: 04/10/17 09:43 Dose: 100 mg Methylprednisolone Sodium Succinate (Solu-Medrol -) 40 mg IVPB Q8H-IV [facility] Last Admin: 04/10/17 09:42 Dose: 40 mg Montelukast Sodium (Singulair -) 10 mg PO HS [facility] Last Admin: 04/09/17 22:14 Dose: 10 mg Nystatin (Nystatin Oral Suspension -) 500,000 units PO TID [facility] Last Admin: 04/10/17 06:30 Dose: 500,000 units Pantoprazole Sodium (Protonix -) 40 mg PO DAILY [facility] Last Admin: 04/10/17 09:43 Dose: 40 mg Sodium Chloride ([place] Nasal [place] -) 2 spray NS BID PRN PRN Reason: NASAL CONGESTION Last Admin: 04/09/17 09:18 Dose: 2 spray Vital Signs: Last Vital Signs Temp Pulse Resp BP Pulse Ox 98.6 F 91 H 18 150/80 98 04/10/17 08:05 04/10/17 11:02 04/10/17 08:05 04/10/17 08:05 04/10/17 11:02 Constitutional: No Distress, Calm Neck: Supple Negative JVD Cardiovascular: S1 S2 Regular Rate and Rhythm Grade 1-2/6 ALIYAH Respiratory: Diminished Gastrointestinal: Soft Benign Normal Bowel Sounds Ext: Edema Bilaterally Labs: CBC, BMP 04/10/17 06:00 04/10/17 06:00 INR, PTT INR 3.33 (0.82-1.09) H 04/10/17 06:00 Assessment/Plan ASSESSMENT: 1. Acute hypoxemic respiratory failure with atypical pneumonia, resolving 2. 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 HTN 5. Hyperlipidemia 6. Pulmonary HTN 7. Seizure disorder 8. Hypothyroidism PLAN: 1. Antibiotics as per the primary team 2. Steroid and bronchodilators as per the primary team 3. Continue Cozaar 4. Continue HCTZ 5. Continue Lipitor 6. Continue Coumadin as per INR, hold today Kacey Cardenas MD
--- NOTE | 2017-04-10 15:29 | PN ---
Physical Exam: SUBJECTIVE: Patient seen and examined at the bedside. States she is feeling better. OBJECTIVE: WBC 12.6 Lactic acid trending down Spoke to patient about monitoring her bgms on discharge Patient has home oxygen but when I spoke to her daughter, daughter states her mother does not have her home oxygen with her here in [place] (has it in [place] and [place]). Less scattered wheezing on exam. Vital Signs Period Temp Pulse Resp BP Sys/[place] Pulse Ox Last 24 Hr 98.2 F-98.6 F 90-100 18-20 117-150/52-82 98-99 GENERAL: The patient is awake, alert, and fully oriented, in no acute distress. HEAD: Normal with no signs of trauma. + sinus pain and pressure improving EYES: PERRL, extraocular movements intact, sclera anicteric, conjunctiva clear. No ptosis. ENT: Ears normal, nares patent, oropharynx clear without exudates, moist mucous membranes. NECK: Trachea midline, full range of motion, supple. LUNGS: mild scattered wheezing bilaterally HEART: Regular rate and rhythm ABDOMEN: Soft, nontender, nondistended, normoactive bowel sounds, no guarding, no rebound, no hepatosplenomegaly, no masses. EXTREMITIES: 2+ pulses, warm, well-perfused, no edema. NEUROLOGICAL: Normal speech, steady gait PSYCH: Normal mood, normal affect. SKIN: Warm, dry, normal turgor, no rashes or lesions noted Laboratory Results - last 24 hr 04/09/17 04/09/17 04/10/17 16:34 22:13 06:00 WBC 12.6 H RBC 4.07 Hgb 11.7 Hct 35.9 MCV 88.1 MCH 28.8 MCHC 32.7 RDW 17.5 H Plt Count 203 MPV 8.2 Neutrophils % 88.0 H Lymphocytes % 6.0 L Monocytes % 3.0 L D Band Neutrophils 3.0 D Differential Comment Slide scanned Platelet Estimate Adequate INR Sodium Potassium Chloride Carbon Dioxide Anion Gap BUN Creatinine Creat Clearance w eGFR POC Glucometer 185 204 Random Glucose Lactic Acid Calcium Total Bilirubin AST ALT Alkaline Phosphatase Total Protein Albumin 04/10/17 04/10/17 04/10/17 06:00 06:00 06:00 WBC RBC Hgb Hct MCV MCH MCHC RDW Plt Count MPV Neutrophils % Lymphocytes % Monocytes % Band Neutrophils Differential Comment Platelet Estimate INR 3.33 H Sodium 142 Potassium 4.0 Chloride 101 Carbon Dioxide 34 H Anion Gap 7 L BUN 28 H Creatinine 0.8 Creat Clearance w eGFR > 60 POC Glucometer Random Glucose 157 H Lactic Acid 3.1 H* Calcium 8.5 Total Bilirubin 0.5 AST 56 H D ALT 77 D Alkaline Phosphatase 63 Total Protein 5.2 L Albumin 2.7 L 04/10/17 04/10/17 06:29 11:40 WBC RBC Hgb Hct MCV MCH MCHC RDW Plt Count MPV Neutrophils % Lymphocytes % Monocytes % Band Neutrophils Differential Comment Platelet Estimate INR Sodium Potassium Chloride Carbon Dioxide Anion Gap BUN Creatinine Creat Clearance w eGFR POC Glucometer 151 205 Random Glucose Lactic Acid Calcium Total Bilirubin AST ALT Alkaline Phosphatase Total Protein Albumin Active Medications Generic Name Dose Route Start Last Admin Trade Name Freq PRN Reason Stop Dose Admin Acetaminophen 650 mg 04/08/17 06:24 Tylenol - PO Q6H PRN FEVER OR PAIN Albuterol/Ipratropium 1 amp 04/05/17 12:00 04/10/17 11:03 Duoneb - NEB 1 amp QIDR [facility] Administration Atorvastatin Calcium 40 mg 04/05/17 22:00 04/09/17 22:14 Lipitor - PO 40 mg HS [facility] Administration Budesonide/Formoterol Fumarate 2 puff 04/05/17 22:00 04/10/17 09:43 Symbicort 160/4.5mcg - IH 2 puff BID [facility] Administration Folic Acid 1 mg 04/05/17 10:00 04/10/17 09:43 Folic Acid - PO 1 mg DAILY [facility] Administration Guaifenesin 600 mg 04/07/17 22:00 04/10/17 09:43 Mucinex - PO 600 mg BID [facility] Administration Hydrochlorothiazide 25 mg 04/05/17 10:00 04/10/17 09:43 Hctz - PO 25 mg DAILY [facility] Administration Aztreonam 1 gm/ Dextrose 50 mls @ 100 mls/hr 04/05/17 18:15 04/10/17 09:42 IVPB 100 mls/hr Q8H-IV [facility] Administration Protocol Insulin Aspart 1 vial 04/08/17 11:00 04/10/17 11:44 Novolog Vial Sliding Scale - SQ 4 units ACHS [facility] Administration Protocol Insulin Detemir 5 units 04/09/17 22:00 04/09/17 22:14 Levemir Vial SQ 5 units HS [facility] Administration Levetiracetam 250 mg/ 750 mg 04/05/17 10:00 04/10/17 09:42 Levetiracetam 500 mg PO 750 mg BID [facility] Administration Levothyroxine Sodium 25 mcg 04/05/17 07:00 04/10/17 06:29 Synthroid - PO 25 mcg DAILY@0700 [facility] Administration Losartan Potassium 100 mg 04/05/17 10:00 04/10/17 09:43 Cozaar - PO 100 mg DAILY [facility] Administration Methylprednisolone Sodium Succinate 40 mg 04/09/17 18:00 04/10/17 09:42 Solu-Medrol - IVPB 40 mg Q8H-IV [facility] Administration Montelukast Sodium 10 mg 04/05/17 22:00 04/09/17 22:14 Singulair - PO 10 mg HS [facility] Administration Nystatin 500,000 units 04/08/17 15:56 04/10/17 13:09 Nystatin Oral Suspension - PO 500,000 units TID [facility] Administration Pantoprazole Sodium 40 mg 04/08/17 16:45 04/10/17 09:43 Protonix - PO 40 mg DAILY [facility] Administration Sodium Chloride 2 spray 04/05/17 17:27 04/09/17 09:18 [place] Nasal [place] - NS 2 spray BID PRN Administration NASAL CONGESTION ASSESSMENT/PLAN: Patient is a 76 year old female with a significant past medical history of hypertension, hyperlipidemia, asthma, 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 Patient presented to the ER on 04/04/2017 with shortness of breath, dizziness, and fatigue. CT angiogram of the chest 04/04/17: No gross pulmonary embolism is seen to the lobar level Sinus CT 04/08/2017: minimal bilateral ethmoid sinus mucosal thickening ID: Sepsis secondary to pneumonia vs. sinusitis vs. acute asthma exacerbation - improving WBC trending down Leukocytosis may be due to iv steriods vs. infection + sinus tenderness and pressure on clinical exam, CT of sinus shows minimal bilateral ethmoid sinus mucosal thickening On Aztreonam 1 gram as per ID Has persistent lactic acidosis likely secondary to albuterol use, now lactic acidosis trending down On Singuliar, 2 liter of oxygen Patient oxygen dependent @ home - not set up for oxygen in [place], will order pre and pos On Solumedrol 40mg ivpb q8 Pulmonary following Persistent lactic acidosis - trending down Assessment/Plan: Persistent lactic acidosis despite aggressive fluid hydration: can be due to asthma exacerbation vs. Keppra use vs. 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 Fluids: tolerating PO Electrolytes: monitor bmp Nutrition: diabetic diet Prophylaxis: DVT: On Coumadin per INR GI: Protonix while on steroids Disposition: Requires inpatient hospitalization. Full code. Visit type - Emergency Visit Emergency Visit: Yes ED Registration Date: 04/04/17 Care time: The patient presented to the Emergency Department on the above date and was hospitalized for further evaluation of their emergent condition. - New Patient This patient is new to me today: No - Critical Care Critical Care patient: No - Discharge Referral Referred to [facility] Med [facility] No
[2017-04-10] MEDS: ATORVASTATIN CA 40 MG TABLET (FP) PO SCH (21:32)
[2017-04-10] MEDS: ACETAMINOPHEN 325 MG TABLET (FP) PO PRN (21:32)
[2017-04-10] MEDS: MONTELUKAST NA 10 MG TABLET PO SCH (21:32)
[2017-04-10] MEDS: INSULIN DETEMIR 100 UNITS/ML MDV SQ SCH (21:34)
[2017-04-10] MEDS ORDERED: INSULIN DETEMIR 100 UNITS/ML MDV SQ ONE (21:43)
[2017-04-11] MEDS: ALBUTEROL SO4 2.5/IPRATROPIUM 0.5 INH SOL 3 ML VIAL.NEB. NEB SCH ×2 (00:10→06:47)
[2017-04-11] MEDS: AZTREONAM 1 GM in DEXTROSE 5%-WATER - 50 ML IVPB SCH ×2 (01:23→09:22)
[2017-04-11] MEDS: methylPREDNISolone NA SUCC 40 MG/1 ML VIAL IVPB SCH ×3 (01:23→21:40)
[2017-04-11] MEDS ORDERED: INSULIN (NOVOLOG) ASPART 100 UNITS/ML 10ML VIAL ONE (06:03)
[2017-04-11] MEDS: LEVOTHYROXINE NA 25 MCG TABLET (FP) PO SCH (06:04)
[2017-04-11] MEDS: INSULIN SLIDING SCALE (NOVOLOG) 1 VIAL SQ SCH ×4 (06:04→21:44)
[2017-04-11] MEDS: NYSTATIN 500,000 UNITS/5 ML SUSPENSION PO SCH ×3 (06:04→21:41)
[2017-04-11 08:01] LABS: MCH 28.6 pg (25.7-33.7); MCHC 32.6 g/dl (32.0-36.0); MEAN CELL VOLUME 87.7 fl (80-96); MEAN PLT VOLUME 8.7 fl (7.5-11.1); PLATELET COUNT 228 K/MM3 (134-434); RDW 17.2 % (11.6-15.6); WHITE BLOOD COUNT 15.1 K/mm3 (4.0-10.0)
[2017-04-11 08:24] LABS: ALBUMIN 2.8 g/dl (3.4-5.0); ANION GAP 5 (8-16); CALCIUM 9.2 mg/dL (8.5-10.1); CO2 35 mmol/L (21-32); CREATININE 0.8 mg/dL (0.55-1.02); GLUCOSE,RANDOM 153 mg/dL (74-106); SGPT/ALT 78 U/L (12-78)
[2017-04-11 08:25] LABS: ALK PHOS 66 U/L (45-117); BILIRUBIN,TOTAL 0.7 mg/dL (0.2-1.0); TOT PROT 5.8 g/dl (6.4-8.2)
[2017-04-11 08:29] LABS: SGOT/AST 43 U/L (15-37)
[2017-04-11 08:41] LABS: INR 2.84 (0.82-1.09); PROTHROMBIN TIME (PATIENT) 31.9 SEC (9.98-11.88)
[2017-04-11] MEDS ORDERED: SODIUM CHLORIDE 1,000 ML IV STA (08:54)
[2017-04-11] MEDS ORDERED: ALBUTEROL SO4 2.5/IPRATROPIUM 0.5 INH SOL 3 ML VIAL.NEB. NEB PRN (09:12)
[2017-04-11] MEDS ORDERED: levETIRAcetam 250 MG TABLET (FP) PO ONE ×2 (09:17→21:35)
[2017-04-11] MEDS ORDERED: levETIRAcetam 500 MG TABLET (FP) PO ONE ×2 (09:17→21:35)
[2017-04-11] MEDS ORDERED: PT OWN MED DRAWER 7, Y5N ONE (09:18)
[2017-04-11] MEDS: LEVETIRACETAM 250 MG, LEVETIRACETAM 500 MG PO SCH ×2 (09:24→21:41)
[2017-04-11] MEDS: guaiFENesin 600 MG TABLET.ER (FP) PO SCH ×2 (09:24→21:41)
[2017-04-11] MEDS: FOLIC ACID 1 MG TABLET (FP) PO SCH (09:24)
[2017-04-11] MEDS: BUDESONIDE/FORMETEROL FUMARATE 160/4.5 mcg INHALER IH SCH ×2 (09:24→21:44)
[2017-04-11] MEDS: LOSARTAN POTASSIUM 50 MG TABLET (FP) PO SCH (09:25)
[2017-04-11] MEDS: PANTOPRAZOLE 40 MG TABLET (FP) PO SCH (09:25)
[2017-04-11] MEDS: HYDROCHLOROTHIAZIDE 25 MG TABLET (FP) PO SCH (09:26)
--- NOTE | 2017-04-11 09:43 | PN ---
Physical Exam: SUBJECTIVE: Patient seen and examined, states she feels better. Expressing concern over her WBC bump. OBJECTIVE: K. 5.8, repeat lab without treatment >4.2 Lactic acid elevated @ 5.5, will give bolus of NS, again elevated lactic levels likely secondary to albuterol use and increased work of breathing - consulted Dr. Aquino for persistent lactic acidosis Will switch albuterol to PRN and trend lactate. Patient is also on Symbicort. Spiriva added - discussed with pulmonary WBC bumped up to 15.1, remains afebrile Spoke to SW about home oxygen as patient is 02 dependent @ home but only has oxygen at her residence in [place] and [place], none in [place]. She will be spending the summer with her daughter in [place]. HmgA1c elevated, RN started teaching patient how to use glucometer and monitor blood glucose, will add a hypoglycemic medication for home use: metformin contraindicated secondary to lactic acidosis New PCP assigned to patient, will ask that a follow up appointment be made for her prior to d/c Vital Signs Period Temp Pulse Resp BP Sys/[place] Pulse Ox Last 24 Hr 97.9 F-98.2 F 91-119 20-20 122-143/68-85 97-98 GENERAL: The patient is awake, alert, and fully oriented, in no acute distress. HEAD: Normal with no signs of trauma. + sinus pain and pressure improving EYES: PERRL, extraocular movements intact, sclera anicteric, conjunctiva clear. No ptosis. ENT: Ears normal, nares patent, oropharynx clear without exudates, moist mucous membranes. NECK: Trachea midline, full range of motion, supple. LUNGS: mild scattered wheezing bilaterally HEART: Regular rate and rhythm ABDOMEN: Soft, nontender, nondistended, normoactive bowel sounds, no guarding, no rebound, no hepatosplenomegaly, no masses. EXTREMITIES: 2+ pulses, warm, well-perfused, no edema. NEUROLOGICAL: Normal speech, steady gait PSYCH: Normal mood, normal affect. SKIN: Warm, dry, normal turgor, no rashes or lesions noted Laboratory Results - last 24 hr 04/10/17 04/10/17 04/10/17 11:40 16:05 21:34 WBC RBC Hgb Hct MCV MCH MCHC RDW Plt Count MPV Neutrophils % Lymphocytes % INR Sodium Potassium Chloride Carbon Dioxide Anion Gap BUN Creatinine Creat Clearance w eGFR POC Glucometer 205 135 221 Random Glucose Lactic Acid Calcium Total Bilirubin AST ALT Alkaline Phosphatase Total Protein Albumin 04/11/17 04/11/17 04/11/17 06:00 06:00 06:00 WBC 15.1 H RBC 4.40 Hgb 12.6 Hct 38.6 MCV 87.7 MCH 28.6 MCHC 32.6 RDW 17.2 H Plt Count 228 MPV 8.7 Neutrophils % Y Lymphocytes % Y INR 2.84 H Sodium 142 Potassium 5.8 H D Chloride 102 Carbon Dioxide 35 H Anion Gap 5 L BUN 29 H Creatinine 0.8 Creat Clearance w eGFR > 60 POC Glucometer Random Glucose 153 H Lactic Acid Calcium 9.2 Total Bilirubin 0.7 D AST 43 H D ALT 78 Alkaline Phosphatase 66 Total Protein 5.8 L Albumin 2.8 L 04/11/17 04/11/17 04/11/17 06:00 06:01 08:50 WBC RBC Hgb Hct MCV MCH MCHC RDW Plt Count MPV Neutrophils % Lymphocytes % INR Sodium Potassium 4.2 D Chloride Carbon Dioxide Anion Gap BUN Creatinine Creat Clearance w eGFR POC Glucometer 186 Random Glucose Lactic Acid 5.5 H* Calcium Total Bilirubin AST ALT Alkaline Phosphatase Total Protein Albumin Active Medications Generic Name Dose Route Start Last Admin Trade Name Freq PRN Reason Stop Dose Admin Acetaminophen 650 mg 04/08/17 06:24 04/10/17 21:32 Tylenol - PO 650 mg Q6H PRN Administration FEVER OR PAIN Aclidinium [place] 1 puff 04/11/17 10:00 Tudorza - IH BID LUIZA Albuterol/Ipratropium 1 amp 04/11/17 09:12 Duoneb - NEB Q6H PRN SHORT OF BREATH/WHEEZING Atorvastatin Calcium 40 mg 04/05/17 22:00 04/10/17 21:32 Lipitor - PO 40 mg HS LUIZA Administration Budesonide/Formoterol Fumarate 2 puff 04/05/17 22:00 04/11/17 09:24 Symbicort 160/4.5mcg - IH 2 puff BID LUIZA Administration Folic Acid 1 mg 04/05/17 10:00 04/11/17 09:24 Folic Acid - PO 1 mg DAILY LUIZA Administration Guaifenesin 600 mg 04/07/17 22:00 04/11/17 09:24 Mucinex - PO 600 mg BID LUIZA Administration Hydrochlorothiazide 25 mg 04/05/17 10:00 04/11/17 09:26 Hctz - PO 25 mg DAILY LUIZA Administration Aztreonam 1 gm/ Dextrose 50 mls @ 100 mls/hr 04/05/17 18:15 04/11/17 09:22 IVPB 100 mls/hr Q8H-IV LUIZA Administration Protocol Sodium Chloride 1,000 mls @ 1,000 mls/hr 04/11/17 08:54 04/11/17 09:20 Normal Saline - IV 04/11/17 09:53 1,000 mls/hr ASDIR STA Administration Insulin Aspart 1 vial 04/08/17 11:00 04/11/17 06:04 Novolog Vial Sliding Scale - SQ 2 units ACHS LUIZA Administration Protocol Insulin Detemir 5 units 04/09/17 22:00 04/10/17 21:34 Levemir Vial SQ 5 units HS LUIZA Administration Levetiracetam 250 mg/ 750 mg 04/05/17 10:00 04/11/17 09:24 Levetiracetam 500 mg PO 750 mg BID LUIZA Administration Levothyroxine Sodium 25 mcg 04/05/17 07:00 04/11/17 06:04 Synthroid - PO 25 mcg DAILY@0700 LUIZA Administration Losartan Potassium 100 mg 04/05/17 10:00 04/11/17 09:25 Cozaar - PO 100 mg DAILY LUIZA Administration Methylprednisolone Sodium Succinate 40 mg 04/09/17 18:00 04/11/17 09:25 Solu-Medrol - IVPB 40 mg Q8H-IV LUIZA Administration Montelukast Sodium 10 mg 04/05/17 22:00 04/10/17 21:32 Singulair - PO 10 mg HS LUIZA Administration Nystatin 500,000 units 04/08/17 15:56 04/11/17 06:04 Nystatin Oral Suspension - PO 500,000 units TID LUIZA Administration Pantoprazole Sodium 40 mg 04/08/17 16:45 04/11/17 09:25 Protonix - PO 40 mg DAILY LUIZA Administration Sodium Chloride 2 spray 04/05/17 17:27 04/09/17 09:18 [place] Nasal [place] - NS 2 spray BID PRN Administration NASAL CONGESTION ASSESSMENT/PLAN: Patient is a 76 year old female with a significant past medical history of hypertension, hyperlipidemia, asthma, 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 Patient presented to the ER on 04/04/2017 with shortness of breath, dizziness, and fatigue. CT angiogram of the chest 04/04/17: No gross pulmonary embolism is seen to the lobar level Sinus CT 04/08/2017: minimal bilateral ethmoid sinus mucosal thickening ID: Sepsis secondary to pneumonia vs. sinusitis vs. acute asthma exacerbation - improving WBC bumped up today with elevated lactic acid of 5.5 Leukocytosis may be due to iv steriods vs. infection + sinus tenderness and pressure on clinical exam, CT of sinus shows minimal bilateral ethmoid sinus mucosal thickening Aztreonam 1 gram discontinued by ID, monitor off antibiotics Has persistent lactic acidosis likely secondary to albuterol use On Singular, 2 liter of oxygen Patient oxygen dependent @ home - not set up for oxygen in [place], will order pre and post On Solumedrol taper Pulmonary following Persistent lactic acidosis - elevated again today, trended down to 3.1 after 1 liter fluid bolus. Assessment/Plan: Persistent lactic acidosis despite aggressive fluid hydration; can be due to asthma exacerbation vs. Keppra use vs. albuterol use Standing albuterol changed to PRN, 1 Liter of fluid bolus given, trend lactate in a.m. renal asked to evaluate Hematology: History of recurrent DVTs on Coumadin Assessment/Plan: Patient alternates between 1mg to 2mg of Coumadin at home INR 2.84 will hold Coumadin tonight, recheck INR in a.m. 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 Fluids: tolerating PO Electrolytes: monitor bmp Nutrition: diabetic diet Prophylaxis: DVT: On Coumadin per INR GI: Protonix while on steroids Disposition: Requires inpatient hospitalization. Full code. Visit type - Emergency Visit Emergency Visit: Yes ED Registration Date: 04/04/17 Care time: The patient presented to the Emergency Department on the above date and was hospitalized for further evaluation of their emergent condition. - New Patient This patient is new to me today: No - Critical Care Critical Care patient: No - Discharge Referral Referred to [facility] Med [facility].C.: No
[2017-04-11] MEDS ORDERED: TIOTROPIUM BROMIDE 18 MCG/INH (DEVICE W/ 5 CAPSULES) IH SCH (10:00)
[2017-04-11 10:09] LABS: PLATELET ESTIMATE ADEQUATE (NORMAL)
[2017-04-11] MEDS: ACLIDINIUM BROMIDE 400 MCG/INH AERO.POWD IH SCH ×2 (10:52→21:47)
--- NOTE | 2017-04-11 10:55 | PN ---
Progress Note (short form) - Note Progress Note: Chief Complaint: Events noted, notes reviewed, continues to report cough and dyspnea but improved History of Present Illness: Seen and examined. Events noted, notes reviewed, continues to report cough and dyspnea but improved Medications: Current Medications Acetaminophen (Tylenol -) 650 mg PO Q6H PRN PRN Reason: FEVER OR PAIN Last Admin: 04/10/17 21:32 Dose: 650 mg Aclidinium [place] (Tudorza -) 1 puff IH BID [facility] Albuterol/Ipratropium (Duoneb -) 1 amp NEB Q6H PRN PRN Reason: SHORT OF BREATH/WHEEZING Last Admin: 04/11/17 10:06 Dose: 1 amp Atorvastatin Calcium (Lipitor -) 40 mg PO HS [facility] Last Admin: 04/10/17 21:32 Dose: 40 mg Budesonide/Formoterol Fumarate (Symbicort 160/4.5mcg -) 2 puff IH BID [facility] Last Admin: 04/11/17 09:24 Dose: 2 puff Folic Acid (Folic Acid -) 1 mg PO DAILY [facility] Last Admin: 04/11/17 09:24 Dose: 1 mg Guaifenesin (Mucinex -) 600 mg PO BID [facility] Last Admin: 04/11/17 09:24 Dose: 600 mg Hydrochlorothiazide (Hctz -) 25 mg PO DAILY [facility] Last Admin: 04/11/17 09:26 Dose: 25 mg Aztreonam 1 gm/ Dextrose 50 mls @ 100 mls/hr IVPB Q8H-IV [facility] PRN Reason: Protocol Last Admin: 04/11/17 09:22 Dose: 100 mls/hr Insulin Aspart (Novolog Vial Sliding Scale -) 1 vial SQ ACHS [facility] PRN Reason: Protocol Last Admin: 04/11/17 06:04 Dose: 2 units Insulin Detemir (Levemir Vial) 5 units SQ HS [facility] Last Admin: 04/10/17 21:34 Dose: 5 units Levetiracetam 250 mg/ (Levetiracetam 500 mg) 750 mg PO BID [facility] Last Admin: 04/11/17 09:24 Dose: 750 mg Levothyroxine Sodium (Synthroid -) 25 mcg PO DAILY@0700 [facility] Last Admin: 04/11/17 06:04 Dose: 25 mcg Losartan Potassium (Cozaar -) 100 mg PO DAILY [facility] Last Admin: 04/11/17 09:25 Dose: 100 mg Methylprednisolone Sodium Succinate (Solu-Medrol -) 40 mg IVPB BID [facility] Montelukast Sodium (Singulair -) 10 mg PO HS [facility] Last Admin: 04/10/17 21:32 Dose: 10 mg Nystatin (Nystatin Oral Suspension -) 500,000 units PO TID [facility] Last Admin: 04/11/17 06:04 Dose: 500,000 units Pantoprazole Sodium (Protonix -) 40 mg PO DAILY [facility] Last Admin: 04/11/17 09:25 Dose: 40 mg Sitagliptin Phosphate (Januvia -) 50 mg PO DAILY@0700 [facility] Sodium Chloride ([place] Nasal [place] -) 2 spray NS BID PRN PRN Reason: NASAL CONGESTION Last Admin: 04/09/17 09:18 Dose: 2 spray Vital Signs: Last Vital Signs Temp Pulse Resp BP Pulse Ox 98.1 F 94 H 20 142/69 93 L 04/11/17 06:00 04/11/17 10:05 04/11/17 06:00 04/11/17 06:00 04/11/17 10:05 Constitutional: No Distress, Calm Neck: Supple Negative JVD Cardiovascular: S1 S2 Regular Rate and Rhythm Grade 1-2/6 ALIYAH Respiratory: Diminished at the Bases Gastrointestinal: Soft Benign Normal Bowel Sounds Ext: Edema Bilaterally Labs: CBC, BMP 04/11/17 06:00 04/11/17 08:50 INR, PTT INR 2.84 (0.82-1.09) H 04/11/17 06:00 Assessment/Plan ASSESSMENT: 1. Acute hypoxemic respiratory failure with atypical pneumonia, resolving 2. 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 HTN 5. Hyperlipidemia 6. Pulmonary HTN 7. Seizure disorder 8. Hypothyroidism PLAN: 1. Antibiotics as per the primary team 2. Steroid and bronchodilators as per the primary team 3. Continue Cozaar 4. Continue HCTZ 5. Continue Lipitor 6. Continue Coumadin as per INR Kacey Cardenas MD
--- NOTE | 2017-04-11 11:30 | PN ---
Progress Note, Physician History of Present Illness: pulmonary alert,less dyspneic,less cough. - Current Medication List Current Medications: Active Medications Acetaminophen (Tylenol -) 650 mg PO Q6H PRN PRN Reason: FEVER OR PAIN Last Admin: 04/10/17 21:32 Dose: 650 mg Aclidinium [place] (Tudorza -) 1 puff IH BID [facility] Albuterol/Ipratropium (Duoneb -) 1 amp NEB Q6H PRN PRN Reason: SHORT OF BREATH/WHEEZING Last Admin: 04/11/17 10:06 Dose: 1 amp Atorvastatin Calcium (Lipitor -) 40 mg PO HS [facility] Last Admin: 04/10/17 21:32 Dose: 40 mg Budesonide/Formoterol Fumarate (Symbicort 160/4.5mcg -) 2 puff IH BID [facility] Last Admin: 04/11/17 09:24 Dose: 2 puff Folic Acid (Folic Acid -) 1 mg PO DAILY [facility] Last Admin: 04/11/17 09:24 Dose: 1 mg Guaifenesin (Mucinex -) 600 mg PO BID [facility] Last Admin: 04/11/17 09:24 Dose: 600 mg Hydrochlorothiazide (Hctz -) 25 mg PO DAILY [facility] Last Admin: 04/11/17 09:26 Dose: 25 mg Aztreonam 1 gm/ Dextrose 50 mls @ 100 mls/hr IVPB Q8H-IV [facility] PRN Reason: Protocol Last Admin: 04/11/17 09:22 Dose: 100 mls/hr Insulin Aspart (Novolog Vial Sliding Scale -) 1 vial SQ ACHS [facility] PRN Reason: Protocol Last Admin: 04/11/17 06:04 Dose: 2 units Insulin Detemir (Levemir Vial) 5 units SQ HS [facility] Last Admin: 04/10/17 21:34 Dose: 5 units Levetiracetam 250 mg/ (Levetiracetam 500 mg) 750 mg PO BID [facility] Last Admin: 04/11/17 09:24 Dose: 750 mg Levothyroxine Sodium (Synthroid -) 25 mcg PO DAILY@0700 [facility] Last Admin: 04/11/17 06:04 Dose: 25 mcg Losartan Potassium (Cozaar -) 100 mg PO DAILY [facility] Last Admin: 04/11/17 09:25 Dose: 100 mg Methylprednisolone Sodium Succinate (Solu-Medrol -) 40 mg IVPB BID [facility] Montelukast Sodium (Singulair -) 10 mg PO HS [facility] Last Admin: 04/10/17 21:32 Dose: 10 mg Nystatin (Nystatin Oral Suspension -) 500,000 units PO TID [facility] Last Admin: 04/11/17 06:04 Dose: 500,000 units Pantoprazole Sodium (Protonix -) 40 mg PO DAILY [facility] Last Admin: 04/11/17 09:25 Dose: 40 mg Sitagliptin Phosphate (Januvia -) 50 mg PO DAILY@0700 [facility] Sodium Chloride ([place] Nasal [place] -) 2 spray NS BID PRN PRN Reason: NASAL CONGESTION Last Admin: 04/09/17 09:18 Dose: 2 spray - Objective Vital Signs: Vital Signs Temperature 98.1 F 04/11/17 06:00 Pulse Rate 94 H 04/11/17 10:05 Respiratory Rate 20 04/11/17 06:00 Blood Pressure 142/69 04/11/17 06:00 O2 Sat by Pulse Oximetry (%) 93 L 04/11/17 10:05 Constitutional: Yes: Well Nourished, Calm Eyes: Yes: WNL HENT: Yes: WNL Neck: Yes: WNL Cardiovascular: Yes: Regular Rate and Rhythm, S1, S2 Respiratory: Yes: Wheezes (few wheezes) Gastrointestinal: Yes: Normal Bowel Sounds, Soft Extremities: Yes: WNL Edema: No Labs: CBC, BMP 04/11/17 06:00 04/11/17 08:50 INR, PTT INR 2.84 (0.82-1.09) H 04/11/17 06:00 Problem List - Problems (1) Atypical pneumonia Code(s): J18.9 - PNEUMONIA, UNSPECIFIED ORGANISM (2) DVT prophylaxis Code(s): [id number] - (3) Dyspnea and respiratory abnormalities Code(s): R06.00 - DYSPNEA, UNSPECIFIED R06.89 - OTHER ABNORMALITIES OF BREATHING (4) DVT (deep venous thrombosis) Code(s): I82.409 - ACUTE EMBOLISM AND THOMBOS UNSP DEEP VN UNSP LOWER EXTREMITY Qualifiers: DVT location: lower extremity Chronicity: chronic (5) Hyperlipemia Code(s): E78.5 - HYPERLIPIDEMIA, UNSPECIFIED Qualifiers: Hyperlipidemia type: pure hypercholesterolemia Qualified Code(s): E78.00 - Pure hypercholesterolemia, unspecified; E78.0 - Pure hypercholesterolemia (6) Hypertension Code(s): I10 - ESSENTIAL (PRIMARY) HYPERTENSION Qualifiers: Hypertension type: essential hypertension Qualified Code(s): I10 - Essential (primary) hypertension (7) Acute hypoxemic respiratory failure Code(s): J96.01 - ACUTE RESPIRATORY FAILURE WITH HYPOXIA Assessment/Plan Problem List - Problems (1) Atypical pneumonia Code(s): J18.9 - PNEUMONIA, UNSPECIFIED ORGANISM (2) DVT prophylaxis Code(s): [id number] - (3) Dyspnea and respiratory abnormalities Code(s): R06.00 - DYSPNEA, UNSPECIFIED R06.89 - OTHER ABNORMALITIES OF BREATHING (4) DVT (deep venous thrombosis) Code(s): I82.409 - ACUTE EMBOLISM AND THOMBOS UNSP DEEP VN UNSP LOWER EXTREMITY (5) Hyperlipemia Code(s): E78.5 - HYPERLIPIDEMIA, UNSPECIFIED (6) Hypertension Code(s): I10 - ESSENTIAL (PRIMARY) HYPERTENSION (7) Acute hypoxemic respiratory failure Code(s): J96.01 - ACUTE RESPIRATORY FAILURE WITH HYPOXIA ACUTE HYPOXEMIC RESPIRATORY FAILURE IMPROVING BILATERAL GROUND GLASS INFILTRATES -> (?) PULMONARY VASCULAR CONGESTION (? ) INTERSTITIAL PROCESS ASTHMA EXACERBATION SINUSITIS H/O RECURRENT DVTS HTN HYPOTHYROID PUD PULMONARY HTN ELEVATED LACTATE PLAN CONTINUE IV ANTIBIOTICS PER ID INHALED BRONCHODILATORS MEDROL TAPER SUPPLEMENTAL O2 FOLLOW LACTIC ACID RENAL EVALUATION DR FLORES
--- NOTE | 2017-04-11 13:26 | PN ---
Progress Note, Physician History of Present Illness: clinically patient looking better says she just does not feel right she has completed abx course issue is her lactic acid is still increasing - Current Medication List Current Medications: Active Medications Acetaminophen (Tylenol -) 650 mg PO Q6H PRN PRN Reason: FEVER OR PAIN Last Admin: 04/10/17 21:32 Dose: 650 mg Aclidinium [place] (Tudorza -) 1 puff IH BID [facility] Albuterol/Ipratropium (Duoneb -) 1 amp NEB Q6H PRN PRN Reason: SHORT OF BREATH/WHEEZING Last Admin: 04/11/17 10:06 Dose: 1 amp Atorvastatin Calcium (Lipitor -) 40 mg PO HS [facility] Last Admin: 04/10/17 21:32 Dose: 40 mg Budesonide/Formoterol Fumarate (Symbicort 160/4.5mcg -) 2 puff IH BID [facility] Last Admin: 04/11/17 09:24 Dose: 2 puff Folic Acid (Folic Acid -) 1 mg PO DAILY [facility] Last Admin: 04/11/17 09:24 Dose: 1 mg Guaifenesin (Mucinex -) 600 mg PO BID [facility] Last Admin: 04/11/17 09:24 Dose: 600 mg Hydrochlorothiazide (Hctz -) 25 mg PO DAILY [facility] Last Admin: 04/11/17 09:26 Dose: 25 mg Insulin Aspart (Novolog Vial Sliding Scale -) 1 vial SQ [facility] PRN Reason: Protocol Last Admin: 04/11/17 12:12 Dose: 4 units Insulin Detemir (Levemir Vial) 5 units SQ [facility] Last Admin: 04/10/17 21:34 Dose: 5 units Levetiracetam 250 mg/ (Levetiracetam 500 mg) 750 mg PO BID [facility] Last Admin: 04/11/17 09:24 Dose: 750 mg Levothyroxine Sodium (Synthroid -) 25 mcg PO DAILY@0700 [facility] Last Admin: 04/11/17 06:04 Dose: 25 mcg Losartan Potassium (Cozaar -) 100 mg PO DAILY [facility] Last Admin: 04/11/17 09:25 Dose: 100 mg Methylprednisolone Sodium Succinate (Solu-Medrol -) 40 mg IVPB BID [facility] Montelukast Sodium (Singulair -) 10 mg PO [facility] Last Admin: 04/10/17 21:32 Dose: 10 mg Nystatin (Nystatin Oral Suspension -) 500,000 units PO TID [facility] Last Admin: 04/11/17 06:04 Dose: 500,000 units Pantoprazole Sodium (Protonix -) 40 mg PO DAILY [facility] Last Admin: 04/11/17 09:25 Dose: 40 mg Sitagliptin Phosphate (Januvia -) 50 mg PO DAILY@0700 [facility] Sodium Chloride ([place] Nasal [place] -) 2 spray NS BID PRN PRN Reason: NASAL CONGESTION Last Admin: 04/09/17 09:18 Dose: 2 spray - Objective Vital Signs: Vital Signs Temperature 98.1 F 04/11/17 06:00 Pulse Rate 94 H 04/11/17 10:05 Respiratory Rate 20 04/11/17 06:00 Blood Pressure 142/69 04/11/17 06:00 O2 Sat by Pulse Oximetry (%) 93 L 04/11/17 10:05 Constitutional: Yes: No Distress, Calm Cardiovascular: Yes: Regular Rate and Rhythm Respiratory: Yes: Regular, CTA Bilaterally Gastrointestinal: Yes: Normal Bowel Sounds, Soft Musculoskeletal: Yes: WNL Extremities: Yes: WNL Neurological: Yes: Alert, Oriented Psychiatric: Yes: Alert, Oriented Labs: CBC, BMP 04/11/17 06:00 04/11/17 08:50 INR, PTT INR 2.84 (0.82-1.09) H 04/11/17 06:00 Assessment/Plan 76 y/o with a PMHx of: Asthma, HTN, HLD, Seizures, DVTs (on Coumadin). Presents to the ED SOB, Cough, Rhinnorhea. Admitted M/S Atypical Pneumonia for further evaluation of their emergent condition. 1. Atypical Pneumonia 2. Hypoxemia 3. Asthma 4. Supratherapuetic INR 5. DVTs 6. Hypertension 7. Hyperlipidemia 8. Seizures 9 leukocytosis 10 lactic acidosis 11 thrush Problem List - Problems (1) Atypical pneumonia Code(s): J18.9 - PNEUMONIA, UNSPECIFIED ORGANISM (2) DVT prophylaxis Code(s): [id number] - (3) Dyspnea and respiratory abnormalities Code(s): R06.00 - DYSPNEA, UNSPECIFIED R06.89 - OTHER ABNORMALITIES OF BREATHING (4) DVT (deep venous thrombosis) Code(s): I82.409 - ACUTE EMBOLISM AND THOMBOS UNSP DEEP VN UNSP LOWER EXTREMITY (5) Hyperlipemia Code(s): E78.5 - HYPERLIPIDEMIA, UNSPECIFIED (6) Hypertension Code(s): I10 - ESSENTIAL (PRIMARY) HYPERTENSION (7) Acute hypoxemic respiratory failure Code(s): J96.01 - ACUTE RESPIRATORY FAILURE WITH HYPOXIA plan will stop all abx continue to follow lactic acid will see how wbc behaves rest as per primary
[2017-04-11 13:54] VITALS: BMI 33.8
--- NOTE | 2017-04-11 13:54 | CON.NEP ---
Consult Consult Specialty:: Nephrology Referred by:: Dr Vuong Reason for Consultation:: Lactic acidosis - History of Present Illness History of Present Illness: 76 y/o female with a past medical history of Asthma, HTN, HLD, DVTs , Seizure Disorder, PUD. Pt was admitted with dyspnea and is being treated for a pneumonia. Lactic acid levels have been elevated though the anion gap has been wnl since admission Also the ABG on room air did not show a metabolic acidosis- See labs below Pt has not been hypotensive No recent seizure activity Pt doesn't appear to be septic No recent use of Metformin Pt has been on nebulizer Albuterol treatments regularly since admission and as per home medications used a nebulizer as an outpatient - History Source History Provided By: Patient, Medical Record Limitations to Obtaining History: Language Barrier - Past Medical History MOLDER: Yes: CVA, Seizure ( last seizure >10yrs ago), Vertigo Cardio/Vascular: Yes: HTN Pulmonary: Yes: Asthma Gastrointestinal: Yes: Gastritis, Peptic Ulcer Disease Musculoskeletal: Yes: Other (arthritis (type not specificed)) ENT: Yes: Sinusitis Endocrine: Yes: Hypothyroidism Additional Medical History: DVTs, HPL - Past Surgical History Past Surgical History: Yes: Breast Biopsy, Hysterectomy - Alcohol/Substance Use Hx Alcohol Use: No History of Substance Use: reports: None - Smoking History Smoking history: Never smoked Have you smoked in the past 12 months: No Aproximately how many cigarettes per day: 0 - Social History Occupation: retired 20 yrs ago History of Recent Travel: Yes (traveled from [place]) Home Medications - Allergies Allergies/Adverse Reactions: Allergies Allergy/AdvReac Type Severity Reaction Status Date / Time Penicillins Allergy Swelling Verified 04/04/17 17:50 - Home Medications Home Medications: Ambulatory Orders Cholecalciferol (Vitamin D3) [Vitamin D-3] 10,000 unit PO WEEKLY 04/01/13 Montelukast Na [Singulair -] 10 mg PO HS 04/01/13 Losartan/Hydrochlorothiazide [Losartan-Hctz 100-25 mg Tablet] 1 each PO DAILY Albuterol 0.083% Nebulizer Parbha [Ventolin 0.083% Nebulizer Soln -] 1 neb NEB Q6H PRN #20 vial 07/26/16 Levetiracetam [Keppra -] 750 mg PO BID 07/26/16 Levothyroxine [Synthroid -] 25 mcg PO DAILY 07/26/16 Benzonatate [Tessalon [place] -] 200 mg PO DAILY 08/09/16 Folic Acid 1 mg PO DAILY 08/09/16 Atorvastatin Ca [Lipitor] 40 mg PO HS #30 tablet 08/11/16 Doxycycline Hyclate 100 mg PO BID #10 capsule 08/11/16 Meclizine HCl [Antivert -] 12.5 mg PO TID #15 tablet 08/11/16 Nystatin 100,000 unit PO TID 04/05/17 Prednisone [Deltasone -] 20 mg PO DAILY 04/05/17 Warfarin Sodium [Coumadin] 2 mg PO ASDIR 04/05/17 Warfarin Sodium [Coumadin] 2.5 mg PO ASDIR 04/05/17 Family Disease History - Family Disease History Family Disease History: Diabetes: Father ( of NC), Mother ( of uterine cancer), Heart Disease: Father, Respiratory: Sister (asthma) Review of Systems - Review of Systems Gastrointestinal: reports: Other (No Intestional surgeies to suggest a short bowel syndrome. She had a hysterectomy and bladder surgery in the past) Nephrology Consult - Height Height: 5 ft 1 in - Weight Weight: 179 lb - BMI Body Mass Index (BMI): 33.8 - Lab Results CBC,BMP: CBC, BMP 04/11/17 06:00 04/11/17 08:50 Laboratory Tests 04/04/17 04/11/17 19:25 06:00 ABG pH 7.41 ABG pCO2 at Pt Temp 41.4 ABG pO2 at Pt Temp 59.3 L ABG HCO3 25.6 ABG O2 Sat (Measured) 91.1 O2 Delivery Device Room air Oxygen Flow Rate 21 Lactic Acid 5.5 H* Laboratory Tests 04/05/17 04/06/17 04/06/17 01:31 16:00 23:15 Sodium Chloride Carbon Dioxide Anion Gap BUN Creatinine Creat Clearance w eGFR Random Glucose Lactic Acid 4.9 H* 3.6 H* 4.9 H* Calcium Total Bilirubin AST ALT Alkaline Phosphatase Total Protein Albumin 04/07/17 04/10/17 04/11/17 11:35 06:00 06:00 Sodium 142 142 Chloride 102 Carbon Dioxide 35 H Anion Gap 5 L BUN 29 H Creatinine 0.8 Creat Clearance w eGFR > 60 Random Glucose 153 H Lactic Acid 4.0 H* Calcium 9.2 Total Bilirubin 0.7 D AST 43 H D ALT 78 Alkaline Phosphatase 66 Total Protein 5.8 L Albumin 2.8 L Laboratory Tests 04/11/17 06:00 INR 2.84 H Anion Gap: Anion Gap Anion Gap 5 (8-16) L 04/11/17 06:00 - Imaging Chest X-ray: Report Reviewed Cat Scan: Other (No PE on spiral chest ct scan) EKG: Other (NSR with APCs) - Physical Examination Vital Signs: Vital Signs Temperature 98.1 F 04/11/17 06:00 Pulse Rate 94 H 04/11/17 10:05 Respiratory Rate 20 04/11/17 06:00 Blood Pressure 142/69 04/11/17 06:00 O2 Sat by Pulse Oximetry (%) 93 L 04/11/17 10:05 Constitutional: Yes: No Distress Cardiovascular: Yes: S1, S2 (Slightly irregular with short systolic murmur). No : JVD Respiratory: Yes: Other (Moderate air entry with occasional rhonchus) Gastrointestinal: Yes: Soft, Abdomen, Obese. No: Tenderness, Rebound Edema: LLE: 2+, RLE: 2+ Integumentary: Yes: Other (No cyanosis) Assessment/Plan Impression 1. Type B Lactic Acidosis without evidence of hypoperfusion- Etiology to be determined but suspect related to the exacerbation of the Bronchial Asthma and use of the Beta Agonist. 2. Atypical Pneumonia with hypoxemia 3. Asthma 4. S/P Supratherapuetic INR 5. DVTs 6. Hypertension 7. Hyperlipidemia 8. Seizures 9. DM and Leukocytosis on steroids 10. Hypothyroidism Plan Agree with having changed the Albuterol to prn rather than q 6h Continue with the Formoterol ( Symbicort ) for now Rpt Lactic acid level in am UA Thank You Will Follow Dr Aquino
[2017-04-11] MEDS ORDERED: sitaGLIPtin PHOSPHATE 50 MG TABLET PO ONE (14:25)
[2017-04-11] MEDS: ACETAMINOPHEN 325 MG TABLET (FP) PO PRN (21:40)
[2017-04-11] MEDS: ATORVASTATIN CA 40 MG TABLET (FP) PO SCH (21:41)
[2017-04-11] MEDS: INSULIN DETEMIR 100 UNITS/ML MDV SQ SCH (21:43)
[2017-04-11] MEDS: MONTELUKAST NA 10 MG TABLET PO SCH (21:44)
[2017-04-12] MEDS ORDERED: INSULIN (NOVOLOG) ASPART 100 UNITS/ML 10ML VIAL ONE (06:09)
[2017-04-12] MEDS: INSULIN SLIDING SCALE (NOVOLOG) 1 VIAL SQ SCH ×4 (06:11→21:39)
[2017-04-12] MEDS: LEVOTHYROXINE NA 25 MCG TABLET (FP) PO SCH (06:11)
[2017-04-12] MEDS: sitaGLIPtin PHOSPHATE 50 MG TABLET PO SCH (06:11)
[2017-04-12] MEDS: NYSTATIN 500,000 UNITS/5 ML SUSPENSION PO SCH ×3 (06:11→21:33)
[2017-04-12 07:14] LABS: MCH 28.7 pg (25.7-33.7); MEAN PLT VOLUME 8.5 fl (7.5-11.1); PLATELET COUNT 202 K/MM3 (134-434); RDW 17.3 % (11.6-15.6); WHITE BLOOD COUNT 16.2 K/mm3 (4.0-10.0)
[2017-04-12 07:20] LABS: INR 2.2 (0.82-1.09); PROTHROMBIN TIME (PATIENT) 24.6 SEC (9.98-11.88)
[2017-04-12 07:38] LABS: ANION GAP 4 (8-16); CALCIUM 8.8 mg/dL (8.5-10.1); CO2 38 mmol/L (21-32); GLUCOSE,RANDOM 159 mg/dL (74-106)
[2017-04-12 07:40] LABS: CREATININE 0.9 mg/dL (0.55-1.02)
--- NOTE | 2017-04-12 09:19 | PN ---
Progress Note (short form) - Note Progress Note: RENAL Pt is awake and alert comfortable sitting up in chair Last Vital Signs Temp Pulse Resp BP Pulse Ox 98.7 F 88 18 119/66 96 04/12/17 08:20 04/12/17 08:20 04/12/17 08:20 04/12/17 08:20 04/11/17 21:00 lungs no wheezing, crackles at left base cvs s1s2 irregular ALIYAH abd soft ext bilat edema neuro a+ox3 Current Medications Generic Name Dose Route Start Last Admin Trade Name Freq PRN Reason Stop Dose Admin Acetaminophen 650 mg 04/08/17 06:24 04/11/17 21:40 Tylenol - PO 650 mg Q6H PRN Administration FEVER OR PAIN Aclidinium [place] 1 puff 04/11/17 10:00 04/11/17 21:47 Tudorza - IH 1 puff BID LUIZA Administration Albuterol/Ipratropium 1 amp 04/11/17 09:12 04/11/17 10:06 Duoneb - NEB 1 amp Q6H PRN Administration SHORT OF BREATH/WHEEZING Atorvastatin Calcium 40 mg 04/05/17 22:00 04/11/17 21:41 Lipitor - PO 40 mg HS LUIZA Administration Budesonide/Formoterol Fumarate 2 puff 04/05/17 22:00 04/11/17 21:44 Symbicort 160/4.5mcg - IH 2 puff BID LUIZA Administration Folic Acid 1 mg 04/05/17 10:00 04/11/17 09:24 Folic Acid - PO 1 mg DAILY LUIZA Administration Guaifenesin 600 mg 04/07/17 22:00 04/11/17 21:41 Mucinex - PO 600 mg BID LUIZA Administration Hydrochlorothiazide 25 mg 04/05/17 10:00 04/11/17 09:26 Hctz - PO 25 mg DAILY LUIZA Administration Insulin Aspart 1 vial 04/08/17 11:00 04/12/17 06:11 Novolog Vial Sliding Scale - SQ 2 units ACHS LUIZA Administration Protocol Insulin Detemir 5 units 04/09/17 22:00 04/11/17 21:43 Levemir Vial SQ 5 units HS LUIZA Administration Levetiracetam 250 mg/ 750 mg 04/05/17 10:00 04/11/17 21:41 Levetiracetam 500 mg PO 750 mg BID LUIZA Administration Levothyroxine Sodium 25 mcg 04/05/17 07:00 04/12/17 06:11 Synthroid - PO 25 mcg DAILY@0700 LUIZA Administration Losartan Potassium 100 mg 04/05/17 10:00 04/11/17 09:25 Cozaar - PO 100 mg DAILY LUIZA Administration Methylprednisolone Sodium Succinate 40 mg 04/11/17 22:00 04/11/17 21:40 Solu-Medrol - IVPB 40 mg BID LUIZA Administration Montelukast Sodium 10 mg 04/05/17 22:00 04/11/17 21:44 Singulair - PO 10 mg HS ULIZA Administration Nystatin 500,000 units 04/08/17 15:56 04/12/17 06:11 Nystatin Oral Suspension - PO 500,000 units TID LUIZA Administration Pantoprazole Sodium 40 mg 04/08/17 16:45 04/11/17 09:25 Protonix - PO 40 mg DAILY LUIZA Administration Sitagliptin Phosphate 50 mg 04/12/17 07:00 04/12/17 06:11 Januvia - PO 50 mg DAILY@0700 LUIZA Administration Sodium Chloride 2 spray 04/05/17 17:27 04/09/17 09:18 [place] Nasal [place] - NS 2 spray BID PRN Administration NASAL CONGESTION CBC, BMP 04/12/17 06:25 04/12/17 06:25 Uncorrected anion gap is 4 Impression 1. Type B Lactic Acidosis improved 2. Atypical Pneumonia with hypoxemia 3. Asthma 4. S/P Supratherapuetic INR 5. DVTs 6. Hypertension 7. Hyperlipidemia 8. Seizures 9. DM and Leukocytosis on steroids 10. Hypothyroidism Plan continue current management hyperkalemia in part related to losartan, may also be volume depletion, will need kayexalate- ?veltassa if recurrent check ekg given irregular rate SPEP MV
--- NOTE | 2017-04-12 09:38 | PN ---
Progress Note (short form) - Note Progress Note: Subjective: The patient was seen and examined at the bedside, she reports still having yellowish sputum. Lactic acid today 2 K 5.9 this AM, will repeat, if remains high will treat Pre/post O2 yesterday with no home requirement for O2 INR 2.2 today Abx discontinued on 04/11, WBC today slightly increased to 16.2 Current Medications Generic Name Dose Route Start Last Admin Trade Name Freq PRN Reason Stop Dose Admin Acetaminophen 650 mg 04/08/17 06:24 04/11/17 21:40 Tylenol - PO 650 mg Q6H PRN Administration FEVER OR PAIN Aclidinium [place] 1 puff 04/11/17 10:00 04/11/17 21:47 Tudorza - IH 1 puff BID LUIZA Administration Albuterol/Ipratropium 1 amp 04/11/17 09:12 04/11/17 10:06 Duoneb - NEB 1 amp Q6H PRN Administration SHORT OF BREATH/WHEEZING Atorvastatin Calcium 40 mg 04/05/17 22:00 04/11/17 21:41 Lipitor - PO 40 mg HS LUIZA Administration Budesonide/Formoterol Fumarate 2 puff 04/05/17 22:00 04/11/17 21:44 Symbicort 160/4.5mcg - IH 2 puff BID LUIZA Administration Folic Acid 1 mg 04/05/17 10:00 04/11/17 09:24 Folic Acid - PO 1 mg DAILY LUIZA Administration Guaifenesin 600 mg 04/07/17 22:00 04/11/17 21:41 Mucinex - PO 600 mg BID LUIZA Administration Hydrochlorothiazide 25 mg 04/05/17 10:00 04/11/17 09:26 Hctz - PO 25 mg DAILY LUIZA Administration Insulin Aspart 1 vial 04/08/17 11:00 04/12/17 06:11 Novolog Vial Sliding Scale - SQ 2 units ACHS LUIZA Administration Protocol Insulin Detemir 5 units 04/09/17 22:00 04/11/17 21:43 Levemir Vial SQ 5 units HS LUIZA Administration Levetiracetam 250 mg/ 750 mg 04/05/17 10:00 04/11/17 21:41 Levetiracetam 500 mg PO 750 mg BID LUIZA Administration Levothyroxine Sodium 25 mcg 04/05/17 07:00 04/12/17 06:11 Synthroid - PO 25 mcg DAILY@0700 LUIZA Administration Losartan Potassium 100 mg 04/05/17 10:00 04/11/17 09:25 Cozaar - PO 100 mg DAILY LUIZA Administration Methylprednisolone Sodium Succinate 40 mg 04/11/17 22:00 04/11/17 21:40 Solu-Medrol - IVPB 40 mg BID LUIZA Administration Montelukast Sodium 10 mg 04/05/17 22:00 04/11/17 21:44 Singulair - PO 10 mg HS LUIZA Administration Nystatin 500,000 units 04/08/17 15:56 04/12/17 06:11 Nystatin Oral Suspension - PO 500,000 units TID LUIZA Administration Pantoprazole Sodium 40 mg 04/08/17 16:45 04/11/17 09:25 Protonix - PO 40 mg DAILY LUIZA Administration Sitagliptin Phosphate 50 mg 04/12/17 07:00 04/12/17 06:11 Januvia - PO 50 mg DAILY@0700 LUIZA Administration Sodium Chloride 2 spray 04/05/17 17:27 04/09/17 09:18 [place] Nasal [place] - NS 2 spray BID PRN Administration NASAL CONGESTION Sodium Polystyrene Sulfonate 30 gm 04/12/17 09:45 Kayexalate - PO 04/12/17 09:46 ONCE ONE Objective: Vital Signs Period Temp Pulse Resp BP Sys/[place] Pulse Ox Last 24 Hr 98.0 F-98.7 F 88-110 18-21 119-146/65-78 93-98 Physical Exam: General: french speaking, NAD Lungs: Forceful upper airway end expiratory wheezing Heart: RRR, S1S2 Abd: Soft, non-tender, non-distended. Normoactive bowel sounds Neuro: No focal deficits CBCD WBC 16.2 K/mm3 (4.0-10.0) H 04/12/17 06:25 RBC 4.40 M/mm3 (3.60-5.2) 04/12/17 06:25 Hgb 12.6 GM/dL (10.7-15.3) 04/12/17 06:25 Hct 38.2 % (32.4-45.2) 04/12/17 06:25 MCV 87.0 fl (80-96) 04/12/17 06:25 MCHC 33.0 g/dl (32.0-36.0) 04/12/17 06:25 RDW 17.3 % (11.6-15.6) H 04/12/17 06:25 Plt Count 202 K/MM3 (134-434) 04/12/17 06:25 MPV 8.5 fl (7.5-11.1) 04/12/17 06:25 CMP Sodium 141 mmol/L (136-145) 04/12/17 06:25 Potassium 5.9 mmol/L (3.5-5.1) H D 04/12/17 06:25 Chloride 99 mmol/L (98-107) 04/12/17 06:25 Carbon Dioxide 38 mmol/L (21-32) H 04/12/17 06:25 Anion Gap 4 (8-16) L 04/12/17 06:25 BUN 29 mg/dL (7-18) H 04/12/17 06:25 Creatinine 0.9 mg/dL (0.55-1.02) 04/12/17 06:25 Creat Clearance w eGFR > 60 (>60) 04/11/17 06:00 Random Glucose 159 mg/dL (74-106) H 04/12/17 06:25 Calcium 8.8 mg/dL (8.5-10.1) 04/12/17 06:25 Total Bilirubin 0.7 mg/dL (0.2-1.0) D 04/11/17 06:00 AST 43 U/L (15-37) H D 04/11/17 06:00 ALT 78 U/L (12-78) 04/11/17 06:00 Alkaline Phosphatase 66 U/L (45-117) 04/11/17 06:00 Total Protein 5.8 g/dl (6.4-8.2) L 04/11/17 06:00 Albumin 2.8 g/dl (3.4-5.0) L 04/11/17 06:00 CARDIAC ENZYMES Creatine Kinase 91 IU/L (26-192) 04/04/17 19:10 Troponin I < 0.02 ng/ml (0.00-0.05) 04/06/17 22:41 Microbiology 04/08/17 14:10 Blood - Peripheral Venous Blood Culture - Preliminary NO GROWTH OBTAINED AFTER 72 HOURS, INCUBATION TO CONTINUE FOR 2 DAYS. 04/08/17 14:10 Blood - Peripheral Venous Blood Culture - Preliminary NO GROWTH OBTAINED AFTER 72 HOURS, INCUBATION TO CONTINUE FOR 2 DAYS. 04/05/17 06:00 Sputum - Expectorated Gram Stain - Final 04/05/17 06:00 Sputum - Expectorated Sputum Culture - Final Strep Agalactiae Group B 04/05/17 06:00 Urine For Antigen Detection Legionella Antigen - Final 04/05/17 06:00 Urine For Antigen Detection Streptococcus pneumoniae Antigen (M - Final Imaging: CT angiogram of the chest 04/04/17: No gross pulmonary embolism is seen to the lobar level Sinus CT 04/08/2017: minimal bilateral ethmoid sinus mucosal thickening Assessment: This is a 76 year old female with PMHx HTN, hyperlipidemia, asthma, 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 Plan: 1) ID: Sepsis 2/2 probable atypical pneumonia vs. sinusitis - Elevated WBC (infectious vs. steroid induced) - Lactic acidosis: 2 today - Worsening WBC, however remains afebrile - All abx discontinued on 04/11 - Appreciate ID consult 2) Pulmonary: Acute asthma exacerbation - Chest CTA with perihilar predominant groundglass densities noted which could be from early pulmonary edema. Atypical infection/inflammation cannot be excluded. No gross pulmonary embolism is seen - Continue on Solumedrol 40mg IVPB bid - Duonebs - Continue Symbicort while here, discharge out on home Advair - Continue Singulair - O2 via NC prn - Do not require home O2 per pre/post - Appreciate pulmonary consult 3) Cardiology: Hx of multiple DVTs - Restart Coumadin today, INR therapeutic HTN - Continue Losartan - Continue Hctz Hyperlipidemia - Continue Lipitor 4) Neuro: Seizure disorder - Continue Keppra 5) Endocrine: DM - Elevated HgbA1c - Started on Januvia - BGM ACHS - ISS ACHS - Continue to trend 6) F/E/N: - Monitor electrolytes - Low sodium diet 7) Prophylaxis: - OOB ambulating - Therapeutic on Coumadin 7) Dispo: - Requires continued inpatient care CODE STATUS: FULL CODE Visit type - Emergency Visit Emergency Visit: Yes ED Registration Date: 04/04/17 Care time: The patient presented to the Emergency Department on the above date and was hospitalized for further evaluation of their emergent condition. - New Patient This patient is new to me today: No - Critical Care Critical Care patient: No
[2017-04-12] MEDS ORDERED: levETIRAcetam 500 MG TABLET (FP) PO ONE ×2 (09:45→21:17)
[2017-04-12] MEDS ORDERED: levETIRAcetam 250 MG TABLET (FP) PO ONE ×2 (09:45→21:17)
[2017-04-12] MEDS ORDERED: SODIUM POLYSTYRENE SULFONATE 15 GM/60 ML BOTTLE PO ONE (09:45)
[2017-04-12] MEDS ORDERED: PT OWN MED DRAWER 7, Y5N ONE (09:46)
[2017-04-12] MEDS: methylPREDNISolone NA SUCC 40 MG/1 ML VIAL IVPB SCH (09:48)
[2017-04-12] MEDS: guaiFENesin 600 MG TABLET.ER (FP) PO SCH ×2 (09:52→21:34)
[2017-04-12] MEDS: PANTOPRAZOLE 40 MG TABLET (FP) PO SCH (09:52)
[2017-04-12] MEDS: FOLIC ACID 1 MG TABLET (FP) PO SCH (09:52)
[2017-04-12] MEDS: LOSARTAN POTASSIUM 50 MG TABLET (FP) PO SCH (09:52)
[2017-04-12] MEDS: HYDROCHLOROTHIAZIDE 25 MG TABLET (FP) PO SCH (09:52)
[2017-04-12] MEDS: LEVETIRACETAM 250 MG, LEVETIRACETAM 500 MG PO SCH ×2 (09:52→21:33)
[2017-04-12] MEDS: ACLIDINIUM BROMIDE 400 MCG/INH AERO.POWD IH SCH ×3 (09:53→21:33)
[2017-04-12] MEDS: BUDESONIDE/FORMETEROL FUMARATE 160/4.5 mcg INHALER IH SCH ×2 (09:53→21:33)
[2017-04-12 10:39] LABS: ANION GAP 4 (8-16); CALCIUM 8.9 mg/dL (8.5-10.1); CO2 36 mmol/L (21-32); CREATININE 0.8 mg/dL (0.55-1.02); GLUCOSE,RANDOM 92 mg/dL (74-106)
[2017-04-12 11:28] LABS: PLATELET ESTIMATE ADEQUATE (NORMAL)
--- NOTE | 2017-04-12 11:47 | PN ---
Progress Note, Physician History of Present Illness: Dyspnea, cough, dizziness, weakness and fatigue referable to atypical PNA improving. - Current Medication List Current Medications: Active Medications Acetaminophen (Tylenol -) 650 mg PO Q6H PRN PRN Reason: FEVER OR PAIN Last Admin: 04/11/17 21:40 Dose: 650 mg Aclidinium [place] (Tudorza -) 1 puff IH BID [facility] Last Admin: 04/12/17 11:34 Dose: 1 puff Albuterol/Ipratropium (Duoneb -) 1 amp NEB Q6H PRN PRN Reason: SHORT OF BREATH/WHEEZING Last Admin: 04/11/17 10:06 Dose: 1 amp Atorvastatin Calcium (Lipitor -) 40 mg PO HS [facility] Last Admin: 04/11/17 21:41 Dose: 40 mg Budesonide/Formoterol Fumarate (Symbicort 160/4.5mcg -) 2 puff IH BID [facility] Last Admin: 04/12/17 09:53 Dose: 2 puff Folic Acid (Folic Acid -) 1 mg PO DAILY [facility] Last Admin: 04/12/17 09:52 Dose: 1 mg Guaifenesin (Mucinex -) 600 mg PO BID [facility] Last Admin: 04/12/17 09:52 Dose: 600 mg Hydrochlorothiazide (Hctz -) 25 mg PO DAILY [facility] Last Admin: 04/12/17 09:52 Dose: 25 mg Insulin Aspart (Novolog Vial Sliding Scale -) 1 vial SQ ACHS [facility] PRN Reason: Protocol Last Admin: 04/12/17 11:35 Dose: Not Given Levetiracetam 250 mg/ (Levetiracetam 500 mg) 750 mg PO BID [facility] Last Admin: 04/12/17 09:52 Dose: 750 mg Levothyroxine Sodium (Synthroid -) 25 mcg PO DAILY@0700 [facility] Last Admin: 04/12/17 06:11 Dose: 25 mcg Losartan Potassium (Cozaar -) 100 mg PO DAILY [facility] Last Admin: 04/12/17 09:52 Dose: 100 mg Methylprednisolone Sodium Succinate (Solu-Medrol -) 40 mg IVPB BID [facility] Last Admin: 04/12/17 09:48 Dose: 40 mg Montelukast Sodium (Singulair -) 10 mg PO HS [facility] Last Admin: 04/11/17 21:44 Dose: 10 mg Nystatin (Nystatin Oral Suspension -) 500,000 units PO TID [facility] Last Admin: 04/12/17 06:11 Dose: 500,000 units Pantoprazole Sodium (Protonix -) 40 mg PO DAILY [facility] Last Admin: 04/12/17 09:52 Dose: 40 mg Sitagliptin Phosphate (Januvia -) 50 mg PO DAILY@0700 [facility] Last Admin: 04/12/17 06:11 Dose: 50 mg Sodium Chloride ([place] Nasal [place] -) 2 spray NS BID PRN PRN Reason: NASAL CONGESTION Last Admin: 04/09/17 09:18 Dose: 2 spray Warfarin Sodium (Coumadin -) 2 mg PO Q2D@1800 LUIZA Warfarin Sodium (Coumadin -) 1 mg PO Q2D@1800 [facility] - Objective Vital Signs: Vital Signs Temperature 98.7 F 04/12/17 08:20 Pulse Rate 108 H 04/12/17 10:10 Respiratory Rate 18 04/12/17 08:20 Blood Pressure 119/66 04/12/17 08:20 O2 Sat by Pulse Oximetry (%) 98 04/12/17 10:10 Constitutional: Yes: No Distress, Calm Neck: Yes: Supple Cardiovascular: Yes: Regular Rate and Rhythm Respiratory: Yes: Regular, Diminished, On Nasal O2 Gastrointestinal: Yes: Normal Bowel Sounds, Soft Edema: Yes Edema: LLE: 1+, RLE: 1+ Labs: CBC, BMP 04/12/17 06:25 04/12/17 09:56 INR, PTT INR 2.20 (0.82-1.09) H 04/12/17 06:25 Problem List - Problems (1) Acute hypoxemic respiratory failure Code(s): J96.01 - ACUTE RESPIRATORY FAILURE WITH HYPOXIA (2) Atypical pneumonia Code(s): J18.9 - PNEUMONIA, UNSPECIFIED ORGANISM (3) DVT (deep venous thrombosis) Code(s): I82.409 - ACUTE EMBOLISM AND THOMBOS UNSP DEEP VN UNSP LOWER EXTREMITY Qualifiers: DVT location: lower extremity Chronicity: chronic (4) Hyperlipemia Code(s): E78.5 - HYPERLIPIDEMIA, UNSPECIFIED Qualifiers: Hyperlipidemia type: pure hypercholesterolemia Qualified Code(s): E78.00 - Pure hypercholesterolemia, unspecified; E78.0 - Pure hypercholesterolemia (5) Hypertension Code(s): I10 - ESSENTIAL (PRIMARY) HYPERTENSION Qualifiers: Hypertension type: essential hypertension Qualified Code(s): I10 - Essential (primary) hypertension (6) Seizure disorder Code(s): G40.909 - EPILEPSY, UNSP, NOT INTRACTABLE, WITHOUT STATUS EPILEPTICUS (7) Hypothyroidism Code(s): E03.9 - HYPOTHYROIDISM, UNSPECIFIED Qualifiers: Hypothyroidism type: unspecified Qualified Code(s): E03.9 - Hypothyroidism, unspecified (8) Type 2 diabetes mellitus Code(s): E11.9 - TYPE 2 DIABETES MELLITUS WITHOUT COMPLICATIONS Qualifiers: Diabetes mellitus complication status: without complication 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 Acute hypoxemic respiratory failure with atypical PNA, resolving 2. 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 HTN 4. Hyperlipidemia 5. Seizure d/o 6. Hypothyroidism 7. Leukocytosis improving 8. Diastolic dysfunction with pulm HTN 9. Type 2 DM P:1. Complete abx course, IV steroid taper, BD, O2 as needed, Singulair 2. Lactate stabilized 3. Continue Hyzaar 100/25 qd and Lipitor 40 qhs 4. Coumadin per INR with GI protection
--- NOTE | 2017-04-12 12:31 | EKG ---
Test Reason : Blood Pressure : / mmHG Vent. Rate : 093 BPM Atrial Rate : 093 BPM P-R Int : 112 ms QRS Dur : 072 ms QT Int : 338 ms P-R-T Axes : 044 024 019 degrees QTc Int : 420 ms SINUS RHYTHM WITH PREMATURE ATRIAL COMPLEXES OTHERWISE NORMAL ECG WHEN COMPARED WITH ECG OF 06-APR-2017 22:38, T WAVE VARIATION Confirmed by SELENA GUAJARDO MD ([id number]) on 04/12/2017 12:31:04 PM Referred By: SARTHAK PARRISH Confirmed By:SELENA GUAJARDO MD
--- NOTE | 2017-04-12 12:54 | PN ---
Progress Note (short form) - Note Progress Note: PULMONARY BACK FROM BATHROOM APPEARS MILDLY DYSPNEIC VSS/AFEBRILE ANICTERIC/EDENTULOUS CLEAR B/L BREATH SOUNDS S1S2 WITH ECTOPICS BS+ OBESE 1+ EDEMA B/L LOWER EXTREMITIES LABS/MEDS/NOTES/IMAGING REVIEWED ACUTE HYPOXEMIC RESPIRATORY FAILURE IMPROVED BILATERAL GROUND GLASS INFILTRATES ASTHMA EXACERBATION RESOLVED SINUSITIS H/O RECURRENT DVTS HTN HYPOTHYROID PUD PULMONARY HTN DOWN TRENDING LACTATE PLAN INHALED BRONCHODILATORS MEDROL CHANGED TO ORAL PREDNISONE SUPPLEMENTAL O2 IMPROVING RESP STATUS Tammy CONNOR MD
[2017-04-12] MEDS: predniSONE 20 MG TABLET (UD) PO SCH (14:11)
--- NOTE | 2017-04-12 14:46 | PN ---
Progress Note, Physician History of Present Illness: patient sitting in chair without 02 no complaints breathing better c/o of profuse dirrhoea according to her loose watery stools 7-9 times uptill now could be due to kayoxalate - Current Medication List Current Medications: Active Medications Acetaminophen (Tylenol -) 650 mg PO Q6H PRN PRN Reason: FEVER OR PAIN Last Admin: 04/11/17 21:40 Dose: 650 mg Aclidinium [place] (Tudorza -) 1 puff IH BID [facility] Last Admin: 04/12/17 11:34 Dose: 1 puff Albuterol/Ipratropium (Duoneb -) 1 amp NEB Q6H PRN PRN Reason: SHORT OF BREATH/WHEEZING Last Admin: 04/11/17 10:06 Dose: 1 amp Atorvastatin Calcium (Lipitor -) 40 mg PO [facility] Last Admin: 04/11/17 21:41 Dose: 40 mg Budesonide/Formoterol Fumarate (Symbicort 160/4.5mcg -) 2 puff IH BID [facility] Last Admin: 04/12/17 09:53 Dose: 2 puff Folic Acid (Folic Acid -) 1 mg PO DAILY [facility] Last Admin: 04/12/17 09:52 Dose: 1 mg Guaifenesin (Mucinex -) 600 mg PO BID [facility] Last Admin: 04/12/17 09:52 Dose: 600 mg Hydrochlorothiazide (Hctz -) 25 mg PO DAILY [facility] Last Admin: 04/12/17 09:52 Dose: 25 mg Insulin Aspart (Novolog Vial Sliding Scale -) 1 vial SQ ACHS [facility] PRN Reason: Protocol Last Admin: 04/12/17 11:35 Dose: Not Given Levetiracetam 250 mg/ (Levetiracetam 500 mg) 750 mg PO BID [facility] Last Admin: 04/12/17 09:52 Dose: 750 mg Levothyroxine Sodium (Synthroid -) 25 mcg PO DAILY@0700 [facility] Last Admin: 04/12/17 06:11 Dose: 25 mcg Losartan Potassium (Cozaar -) 100 mg PO DAILY [facility] Last Admin: 04/12/17 09:52 Dose: 100 mg Montelukast Sodium (Singulair -) 10 mg PO [facility] Last Admin: 04/11/17 21:44 Dose: 10 mg Nystatin (Nystatin Oral Suspension -) 500,000 units PO TID [facility] Last Admin: 04/12/17 14:12 Dose: 500,000 units Pantoprazole Sodium (Protonix -) 40 mg PO DAILY [facility] Last Admin: 04/12/17 09:52 Dose: 40 mg Prednisone (Deltasone -) 40 mg PO DAILY [facility] Last Admin: 04/12/17 14:11 Dose: 40 mg Sitagliptin Phosphate (Januvia -) 50 mg PO DAILY@0700 [facility] Last Admin: 04/12/17 06:11 Dose: 50 mg Sodium Chloride ([place] Nasal [place] -) 2 spray NS BID PRN PRN Reason: NASAL CONGESTION Last Admin: 04/09/17 09:18 Dose: 2 spray Warfarin Sodium (Coumadin -) 2 mg PO Q2D@1800 [facility] Warfarin Sodium (Coumadin -) 1 mg PO Q2D@1800 [facility] - Objective Vital Signs: Vital Signs Temperature 98.7 F 04/12/17 14:22 Pulse Rate 113 H 04/12/17 14:22 Respiratory Rate 18 04/12/17 14:22 Blood Pressure 139/78 04/12/17 14:22 O2 Sat by Pulse Oximetry (%) 98 04/12/17 10:10 Constitutional: Yes: No Distress, Calm Cardiovascular: Yes: S1, S2 Respiratory: Yes: Regular, CTA Bilaterally Gastrointestinal: Yes: Normal Bowel Sounds, Soft Musculoskeletal: Yes: WNL Extremities: Yes: Other Edema: LLE: Trace, RLE: Trace Neurological: Yes: Alert, Oriented Psychiatric: Yes: Alert Labs: CBC, BMP 04/12/17 06:25 04/12/17 09:56 INR, PTT INR 2.20 (0.82-1.09) H 04/12/17 06:25 Assessment/Plan 76 y/o with a PMHx of: Asthma, HTN, HLD, Seizures, DVTs (on Coumadin). Presents to the ED SOB, Cough, Rhinnorhea. Admitted M/S Atypical Pneumonia for further evaluation of their emergent condition. 1. Atypical Pneumonia 2. Hypoxemia 3. Asthma 4. Supratherapuetic INR 5. DVTs 6. Hypertension 7. Hyperlipidemia 8. Seizures 9 leukocytosis 10 lactic acidosis 11 thrush Problem List - Problems (1) Atypical pneumonia Code(s): J18.9 - PNEUMONIA, UNSPECIFIED ORGANISM (2) DVT prophylaxis Code(s): [id number] - (3) Dyspnea and respiratory abnormalities Code(s): R06.00 - DYSPNEA, UNSPECIFIED R06.89 - OTHER ABNORMALITIES OF BREATHING (4) DVT (deep venous thrombosis) Code(s): I82.409 - ACUTE EMBOLISM AND THOMBOS UNSP DEEP VN UNSP LOWER EXTREMITY (5) Hyperlipemia Code(s): E78.5 - HYPERLIPIDEMIA, UNSPECIFIED (6) Hypertension Code(s): I10 - ESSENTIAL (PRIMARY) HYPERTENSION (7) Acute hypoxemic respiratory failure Code(s): J96.01 - ACUTE RESPIRATORY FAILURE WITH HYPOXIA plan stable off of abx dirrhoea will send cdiff rest continue as per the teams
[2017-04-12] MEDS ORDERED: WARFARIN NA 2 MG TABLET (UD) PO SCH (18:00)
[2017-04-12] MEDS: MONTELUKAST NA 10 MG TABLET PO SCH (21:33)
[2017-04-12] MEDS: ATORVASTATIN CA 40 MG TABLET (FP) PO SCH (21:33)
[2017-04-13] MEDS ORDERED: PT OWN MED DRAWER 7, Y5N ONE ×2 (06:10→09:16)
[2017-04-13] MEDS: LEVOTHYROXINE NA 25 MCG TABLET (FP) PO SCH (06:19)
[2017-04-13] MEDS: NYSTATIN 500,000 UNITS/5 ML SUSPENSION PO SCH (06:19)
[2017-04-13] MEDS: sitaGLIPtin PHOSPHATE 50 MG TABLET PO SCH (06:20)
[2017-04-13] MEDS: INSULIN SLIDING SCALE (NOVOLOG) 1 VIAL SQ SCH ×2 (06:20→11:12)
[2017-04-13 07:21] LABS: MCH 28.7 pg (25.7-33.7); MCHC 32.9 g/dl (32.0-36.0); MEAN CELL VOLUME 87.2 fl (80-96); MEAN PLT VOLUME 8.6 fl (7.5-11.1); PLATELET COUNT 199 K/MM3 (134-434); RDW 17.1 % (11.6-15.6); WHITE BLOOD COUNT 15.9 K/mm3 (4.0-10.0)
[2017-04-13 07:34] LABS: INR 1.8 (0.82-1.09)
[2017-04-13 07:54] LABS: ALBUMIN 2.8 g/dl (3.4-5.0); ANION GAP 6 (8-16); CALCIUM 8.6 mg/dL (8.5-10.1); CO2 36 mmol/L (21-32); GLUCOSE,RANDOM 110 mg/dL (74-106)
[2017-04-13 07:58] LABS: ALK PHOS 69 U/L (45-117); BILIRUBIN,TOTAL 1.1 mg/dL (0.2-1.0); CREATININE 0.6 mg/dL (0.55-1.02); SGOT/AST 31 U/L (15-37); SGPT/ALT 83 U/L (12-78); TOT PROT 5.5 g/dl (6.4-8.2)
[2017-04-13] MEDS ORDERED: levETIRAcetam 500 MG TABLET (FP) PO ONE (09:15)
[2017-04-13] MEDS ORDERED: levETIRAcetam 250 MG TABLET (FP) PO ONE (09:15)
[2017-04-13] MEDS: guaiFENesin 600 MG TABLET.ER (FP) PO SCH (09:17)
[2017-04-13] MEDS: FOLIC ACID 1 MG TABLET (FP) PO SCH (09:17)
[2017-04-13] MEDS: LEVETIRACETAM 250 MG, LEVETIRACETAM 500 MG PO SCH (09:17)
[2017-04-13] MEDS: PANTOPRAZOLE 40 MG TABLET (FP) PO SCH (09:17)
[2017-04-13] MEDS: predniSONE 20 MG TABLET (UD) PO SCH (09:18)
[2017-04-13] MEDS: BUDESONIDE/FORMETEROL FUMARATE 160/4.5 mcg INHALER IH SCH (09:18)
[2017-04-13] MEDS: LOSARTAN POTASSIUM 50 MG TABLET (FP) PO SCH (09:18)
[2017-04-13] MEDS: ACLIDINIUM BROMIDE 400 MCG/INH AERO.POWD IH SCH (09:18)
[2017-04-13] MEDS: HYDROCHLOROTHIAZIDE 25 MG TABLET (FP) PO SCH (09:18)
[2017-04-13] MEDS ORDERED: ENOXAPARIN NA (PORCINE) 80 MG/0.8 ML DISP.SYRIN SQ SCH (10:00)
--- NOTE | 2017-04-13 10:29 | DS ---
Physical Examination Vital Signs: Vital Signs Temperature 98.1 F 04/13/17 06:30 Pulse Rate 87 04/13/17 06:30 Respiratory Rate 20 04/13/17 06:30 Blood Pressure 156/65 04/13/17 06:30 O2 Sat by Pulse Oximetry (%) 96 04/12/17 21:00 Findings/Remarks: Physical Exam: General: grenadian speaking, NAD Lungs: Forceful upper airway end expiratory wheezing Heart: RRR, S1S2 Abd: Soft, non-tender, non-distended. Normoactive bowel sounds Neuro: No focal deficits Labs: CBC, BMP 04/13/17 05:35 04/13/17 05:35 Discharge Summary Reason For Visit: ATYPICAL PNEUMONIA DYSPNEA Current Active Problems Acute hypoxemic respiratory failure (Acute) Atypical pneumonia (Acute) DVT prophylaxis (Acute) Dyspnea and respiratory abnormalities (Acute) Hypothyroidism (Acute) Type 2 diabetes mellitus (Acute) Hospital Course: This is a 76 year old female with PMHx HTN, hyperlipidemia, asthma, 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 Plan: 1) ID: Sepsis 2/2 probable atypical pneumonia vs. sinusitis - Elevated WBC (infectious vs. steroid induced) - Lactic acidosis: resolved - All abx discontinued on 04/11 - Appreciate ID consult Diarrhea - Patient reported diarrhea x9 yesterday after receiving Kayexelate (unwitnessed ) - C.diff ordered, however patient had no additional diarrhea episodes 2) Pulmonary: Acute asthma exacerbation - Chest CTA with perihilar predominant groundglass densities noted which could be from early pulmonary edema. Atypical infection/inflammation cannot be excluded. No gross pulmonary embolism is seen - Continue on Solumedrol 40mg IVPB bid - Duonebs - Continue Symbicort - Continue Singulair - O2 via [place] prn - Does not require home O2 per pre/post - Appreciate pulmonary consult 3) Cardiology: Hx of multiple DVTs - Continue Coumadin, INR subtherapeutic - Send home on Lovenox 80mg sq bid, follow-up with INR in 3 days with pcp and continue Lovenox per INR HTN - Continue Losartan - Continue Hctz Hyperlipidemia - Continue Lipitor 4) Neuro: Seizure disorder - Continue Keppra 5) Endocrine: DM - Elevated HgbA1c - Started on Januvia - BGM ACHS - ISS ACHS - Continue to trend Condition: Improved - Instructions Diet, Activity, Other Instructions: Mrs. Jay Cooper: Please see the doctor that has been referred to you within 1 week after discharge. As discussed you blood sugars have been elevated since you have been in the hospital. I have started you on a new medication called Januvia. This medication along with diet and exercise may help lower your blood sugar. You have been shown how to use a glucometer which is a device that helps monitor your blood sugar before you eat and at bedtime. I have ordered a glucometer for you as well as the supplies that you will need. Please keep track of your blood sugar by writing them down in a book so that you can bring it to you new doctor. By looking at these blood sugars they can decide if the Januvia is helping you or if you need another medication. Please continue the Coumadin as you have at home and have your INR checked 2-3 days after discharge. You will need to continue taking your Lovenox 80mg sq twice a day until your primary care provider informs you that your INR has become therapeutic. Please take the Protonix while you are taking the steriods. Please, No Metformin Please call us back if you have any questions or concerns. [facility] [phone] Referrals: Leonidas Vuong MD [Staff Physician] - Silvia Fernando MD [Staff Physician] - Disposition: HOME - Home Medications Comprehensive Discharge Medication List: Ambulatory Orders Cholecalciferol (Vitamin D3) [Vitamin D-3] 10,000 unit PO WEEKLY 04/01/13 Montelukast Na [Singulair -] 10 mg PO HS 04/01/13 Losartan/Hydrochlorothiazide [Losartan-Hctz 100-25 mg Tablet] 1 each PO DAILY Albuterol 0.083% Nebulizer Prabha [Ventolin 0.083% Nebulizer Soln -] 1 neb NEB Q6H PRN #20 vial 07/26/16 Levothyroxine [Synthroid -] 25 mcg PO DAILY 07/26/16 Folic Acid 1 mg PO DAILY 08/09/16 Atorvastatin Ca [Lipitor] 40 mg PO HS #30 tablet 08/11/16 Meclizine HCl [Antivert -] 12.5 mg PO TID #15 tablet 08/11/16 Nystatin 100,000 unit PO TID 04/05/17 Warfarin Sodium [Coumadin] 2 mg PO ASDIR 04/05/17 Warfarin Sodium [Coumadin] 2.5 mg PO ASDIR 04/05/17 Alcohol Antiseptic Pads [[place] Alcohol Prep Pad] 1 box TP ACHS #1 box Budesonide/Formeterol Fumarate [SYMBICORT 160/4.5mcg -] 2 puff IH BID #1 inhaler 04/11/17 Lancets/Blood Glucose Strips [Fora [id number] Strp-Lnct] 1 box MC ACHS #1 combo..pkg 04/11/17 Levetiracetam [Keppra -] 750 mg PO BID tablet 04/11/17 Miscellaneous Medical Supply [Glucometer Device] 1 each SQ ASDIR #1 kit Miscellaneous [employer] Supply [Glucometer Test Strips #100] 1 each SQ ASDIR #1 box 04/11/17 Pantoprazole Sodium [Protonix -] 40 mg PO DAILY #30 tablet 04/11/17 Sitagliptin Phosphate [Januvia -] 50 mg PO DAILY@0700 #30 tablet 04/11/17 Enoxaparin Sodium [Lovenox] 80 mg SQ BID #14 syringe 04/13/17 - Discharge Referral Referred to [facility] No
--- NOTE | 2017-04-13 11:32 | PN ---
Progress Note (short form) - Note Progress Note: PULMONARY Shortness of breath resolving. No cough or wheezing. No fevers or chills. Last Vital Signs Temp Pulse Resp BP Pulse Ox 98.1 F 87 20 156/65 96 04/13/17 06:30 04/13/17 06:30 04/13/17 06:30 04/13/17 06:30 04/12/17 21:00 Gen: NAD at rest Heart: RRR Lung: scattered basilar rales Abd: soft, nontender Ext: no edema CBC, BMP 04/13/17 05:35 04/13/17 05:35 Active Medications Acetaminophen (Tylenol -) 650 mg PO Q6H PRN PRN Reason: FEVER OR PAIN Last Admin: 04/11/17 21:40 Dose: 650 mg Aclidinium [place] (Tudorza -) 1 puff IH BID [facility] Last Admin: 04/13/17 09:18 Dose: 1 puff Albuterol/Ipratropium (Duoneb -) 1 amp NEB Q6H PRN PRN Reason: SHORT OF BREATH/WHEEZING Last Admin: 04/11/17 10:06 Dose: 1 amp Atorvastatin Calcium (Lipitor -) 40 mg PO HS [facility] Last Admin: 04/12/17 21:33 Dose: 40 mg Budesonide/Formoterol Fumarate (Symbicort 160/4.5mcg -) 2 puff IH BID [facility] Last Admin: 04/13/17 09:18 Dose: 2 puff Enoxaparin Sodium (Lovenox -) 80 mg SQ BID [facility] Folic Acid (Folic Acid -) 1 mg PO DAILY [facility] Last Admin: 04/13/17 09:17 Dose: 1 mg Guaifenesin (Mucinex -) 600 mg PO BID [facility] Last Admin: 04/13/17 09:17 Dose: 600 mg Hydrochlorothiazide (Hctz -) 25 mg PO DAILY [facility] Last Admin: 04/13/17 09:18 Dose: 25 mg Insulin Aspart (Novolog Vial Sliding Scale -) 1 vial SQ ACHS [facility] PRN Reason: Protocol Last Admin: 04/13/17 11:12 Dose: Not Given Levetiracetam 250 mg/ (Levetiracetam 500 mg) 750 mg PO BID [facility] Last Admin: 04/13/17 09:17 Dose: 750 mg Levothyroxine Sodium (Synthroid -) 25 mcg PO DAILY@0700 [facility] Last Admin: 04/13/17 06:19 Dose: 25 mcg Losartan Potassium (Cozaar -) 100 mg PO DAILY [facility] Last Admin: 04/13/17 09:18 Dose: 100 mg Montelukast Sodium (Singulair -) 10 mg PO HS [facility] Last Admin: 04/12/17 21:33 Dose: 10 mg Nystatin (Nystatin Oral Suspension -) 500,000 units PO TID [facility] Last Admin: 04/13/17 06:19 Dose: 500,000 units Pantoprazole Sodium (Protonix -) 40 mg PO DAILY [facility] Last Admin: 04/13/17 09:17 Dose: 40 mg Prednisone (Deltasone -) 40 mg PO DAILY [facility] Last Admin: 04/13/17 09:18 Dose: 40 mg Sitagliptin Phosphate (Januvia -) 50 mg PO DAILY@0700 [facility] Last Admin: 04/13/17 06:20 Dose: 50 mg Sodium Chloride ([place] Nasal [place] -) 2 spray NS BID PRN PRN Reason: NASAL CONGESTION Last Admin: 04/09/17 09:18 Dose: 2 spray Warfarin Sodium (Coumadin -) 2 mg PO Q2D@1800 [facility] Last Admin: 04/12/17 17:28 Dose: 2 mg Warfarin Sodium (Coumadin -) 1 mg PO Q2D@1800 [facility] A/P Acute Hypoxic Respiratory Failure improved Acute Asthma Exacerbation Ground Glass Opacities on CT chest Pulmonary HTN HTN Hypothyroidism h/o DVT - prednisone taper - inhaled bronchodilators - s/p antibiotics - continue anticoagulation - will need outpt f/u of chest imaging to ensure resolution of GGO
[2017-04-13 11:44] VITALS: BP 132/59; PULSE 88; TEMP 98.7
--- NOTE | 2017-04-13 13:54 | PN ---
Progress Note, Physician History of Present Illness: patient doing well feels very good daughter present - Objective Vital Signs: Vital Signs Temperature 98.7 F 04/13/17 10:00 Pulse Rate 88 04/13/17 10:00 Respiratory Rate 20 04/13/17 10:00 Blood Pressure 132/59 04/13/17 10:00 O2 Sat by Pulse Oximetry (%) 99 04/13/17 09:00 Constitutional: Yes: No Distress, Calm Cardiovascular: Yes: Regular Rate and Rhythm Respiratory: Yes: Regular, CTA Bilaterally Gastrointestinal: Yes: Normal Bowel Sounds, Soft Musculoskeletal: Yes: WNL Extremities: Yes: WNL Neurological: Yes: Alert, Oriented Psychiatric: Yes: Alert, Oriented Labs: CBC, BMP 04/13/17 05:35 04/13/17 05:35 INR, PTT INR 1.80 (0.82-1.09) H 04/13/17 05:35 Assessment/Plan 76 y/o with a PMHx of: Asthma, HTN, HLD, Seizures, DVTs (on Coumadin). Presents to the ED SOB, Cough, Rhinnorhea. Admitted M/S Atypical Pneumonia for further evaluation of their emergent condition. 1. Atypical Pneumonia 2. Hypoxemia 3. Asthma 4. Supratherapuetic INR 5. DVTs 6. Hypertension 7. Hyperlipidemia 8. Seizures 9 leukocytosis 10 lactic acidosis 11 thrush Problem List - Problems (1) Atypical pneumonia Code(s): J18.9 - PNEUMONIA, UNSPECIFIED ORGANISM (2) DVT prophylaxis Code(s): [id number] - (3) Dyspnea and respiratory abnormalities Code(s): R06.00 - DYSPNEA, UNSPECIFIED R06.89 - OTHER ABNORMALITIES OF BREATHING (4) DVT (deep venous thrombosis) Code(s): I82.409 - ACUTE EMBOLISM AND THOMBOS UNSP DEEP VN UNSP LOWER EXTREMITY (5) Hyperlipemia Code(s): E78.5 - HYPERLIPIDEMIA, UNSPECIFIED (6) Hypertension Code(s): I10 - ESSENTIAL (PRIMARY) HYPERTENSION (7) Acute hypoxemic respiratory failure Code(s): J96.01 - ACUTE RESPIRATORY FAILURE WITH HYPOXIA lactic acidosis plan patient doing well no issues
[2017-04-13] MEDS ORDERED: WARFARIN NA 1 MG TABLET (FP) PO SCH (18:00)
[2017-04-16 00:11] LABS: A/G RATIO 1.3 (0.7-1.7); GLOBULIN, TOTAL 2.4 g/dL (2.2-3.9); M-SPIKE Not Observed g/dL (Not Observed); TOTAL PROTEIN 5.4 g/dL (6.0-8.5)
== END 2017-04-13 12:20 | disposition home health service (06) | DRG 871 ==
LOC: JER 17:46 → JERBED 23:34 → UNDOADMIN 23:38 → J6S 04-05 01:29
PROVIDERS: ADMIT Internal Medicine; ATTEND Registered Nurse
DX: A41.9 Sepsis, unspecified organism (principal); J18.9 Pneumonia, unspecified organism; J96.01 Acute respiratory failure with hypoxia; B37.0 Candidal stomatitis; E87.2 Acidosis; E78.5 Hyperlipidemia, unspecified; Z86.718 Personal history of other venous thrombosis and embolism; Z79.01 Long term (current) use of anticoagulants; Z87.11 Personal history of peptic ulcer disease; R79.1 Abnormal coagulation profile; J32.9 Chronic sinusitis, unspecified; G40.909 Epilepsy, unspecified, not intractable, without status epilepticus; E09.9 Drug or chemical induced diabetes mellitus without complications; T38.0X5A Adverse effect of glucocorticoids and synthetic analogues, initial encounter; Z79.4 Long term (current) use of insulin; Z99.81 Dependence on supplemental oxygen
CPT/HCPCS: 36415; 36600; 70486-TC; 71010-TC; 71020-TC; 71275-TC; 80048; 80053; 80061; 82375; 82550; 82803; 83036; 83050; 83605; 83721; 83880; 84132; 84155; 84165; 84443; 84484; 85025; 85027; 85610; 87040; 87070; 87186; 87205; 87899; 93005; 93010; 93306-TC; 94010; 94640; 94761; 97116-GP; 97161-GP; 99283-25

== ENCOUNTER 2017-04-15 02:29 | Emergency (ER) | payer OTHER ==
[2017-04-15 02:53] VITALS: BP 142/69; PULSE 87; TEMP 97.9; BMI 32.6
[2017-04-15 04:14] LABS: MCH 28.1 pg (25.7-33.7); MCHC 32.1 g/dl (32.0-36.0); MEAN CELL VOLUME 87.3 fl (80-96); MEAN PLT VOLUME 8.7 fl (7.5-11.1); PLATELET COUNT 180 K/MM3 (134-434); WHITE BLOOD COUNT 13.4 K/mm3 (4.0-10.0)
[2017-04-15 04:25] LABS: INR 2.43 (0.82-1.09); PROTHROMBIN TIME (PATIENT) 27.2 SEC (9.98-11.88)
--- NOTE | 2017-04-15 05:00 | PDOC ---
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 PAST MEDICAL HISTORY: Denies past medical history FAMILY HISTORY: Denies SOCIAL HISTORY: Denies tobacco, alcohol, illicit drug use. SURGICAL HISTORY: Denies ALLERGIES: PCN REVIEW OF SYSTEMS General/Constitutional: Denies fever or chills. Denies weakness, weight change. HEENT: Denies change in vision. Denies ear pain or discharge. Denies sore throat. Cardiovascular: Denies chest pain or shortness of breath. Respiratory: Denies cough, wheezing, or hemoptysis. Gastrointestinal: Denies nausea, vomiting, diarrhea or constipation. Denies rectal bleeding. Genitourinary: Denies dysuria, frequency, or change in urination. Musculoskeletal: "Both legs are too swollen." PHYSICAL EXAM General Appearance: Well-appearing, appropriately dressed. No apparent distress , no intoxication. HEENT: EOMI, PERRLA. Respiratory/Chest: Lungs CTAB. Cardiovascular: RRR. S1, S2. Vascular Pulses: Dorsalis-Pedis (R): 2+, Dorsalis-Pedis (L): 2+ Gastrointestinal/Abdominal: Normal bowel sounds. Abdomen soft, non-distended. No tenderness or rebound tenderness. No organomegaly, pulsatile mass, guarding , hernia, hepatomegaly, splenomegaly. Lymphatic: No adenopathy, tenderness. Musculoskeletal/Extremities: Bilateral 3+ pitting edema. Normal inspection. FROM of all extremities, normal capillary refill. Pelvis Stable. No CVA tenderness. No tenderness to extremities, pedal edema, swelling, erythema or deformity. Integumentary: Appropriate color, dry, warm. No cyanosis, erythema, jaundice or rash Neurologic: flame channeler II-XII intact. Fully oriented, alert. Appropriate mood/affect. Motor strength 5/5. No appreciable EOM palsy, facial droop or sensory deficit. 04/15/17 05:00 Past History - Past Medical History Allergies/Adverse Reactions: Allergies Allergy/AdvReac Type Severity Reaction Status Date / Time Penicillins Allergy Swelling Verified 04/15/17 02:38 Home Medications: Ambulatory Orders Albuterol 0.083% Nebulizer Prabha [Ventolin 0.083%] 1 neb NEB Q4H PRN 04/15/17 Albuterol Sulfate Inhaler - [Ventolin Hfa Inhaler -] 1 - 2 inh PO Q4H 04/15/17 Atorvastatin Ca [Lipitor] 40 mg PO HS 04/15/17 Budesonide/Formeterol Fumarate [SYMBICORT 160/4.5mcg -] 2 inh PO BID 04/15/17 Cholecalciferol (Vitamin D3) [Vitamin D3] 10,000 unit PO WEEKLY 04/15/17 Enoxaparin [Lovenox -] 80 mg SQ BID 04/15/17 Fluticasone Prop 0.05% Nasal [Flonase -] 1 - 2 spray NS BID 04/15/17 Folic Acid - 1 mg PO DAILY 04/15/17 Levetiracetam [Keppra -] 750 mg PO BID 04/15/17 Levothyroxine [Synthroid -] 25 mcg PO DAILY 04/15/17 Linaclotide [Linzess] 290 mcg PO DAILY 04/15/17 Losartan/Hydrochlorothiazide [Losartan-Hctz 100-25 mg Tab] 1 each PO DAILY 04/15 Meclizine HCl [Antivert -] 25 mg PO TID PRN 04/15/17 Montelukast Na [Singulair -] 10 mg PO HS 04/15/17 Nystatin Oral Suspension - [Nystatin Oral Susp 250086 Units/5 ML -] 10 ml PO TID 04/15/17 Pantoprazole Sodium [Protonix -] 40 mg PO DAILY 04/15/17 Prednisone [Prednisone 50 MG TABLETS] 50 mg PO ASDIR 04/15/17 Sitagliptin Phosphate [Januvia] 50 mg PO DAILY@0700 04/15/17 Warfarin Sodium [Coumadin] 2 mg PO DAILY 04/15/17 Anemia: No Asthma: Yes Cancer: No Cardiac Disorders: No CVA: Yes (tia) COPD: Yes CHF: No Dementia: No Diabetes: No GI Disorders: Yes (ULCER, HERNIA) Disorders: No HTN: Yes Hypercholesterolemia: Yes Liver Disease: No Suicide Attempt (Hx): No Seizures: Yes Thyroid Disease: Yes - Surgical History Abdominal Surgery: No Appendectomy: No Cardiac Surgery: No Cholecystectomy: No Lung Surgery: No Neurologic Surgery: No Orthopedic Surgery: No - Immunization History Immunization Up to Date: No - Psycho/Social/Smoking Cessation Hx Anxiety: No Suicidal Ideation: No Smoking Status: No Smoking History: Never smoked Have you smoked in the past 12 months: No Number of Cigarettes Smoked Daily: 0 Hx Alcohol Use: No Drug/Substance Use Hx: No Substance Use Type: None Hx Substance Use Treatment: No *Physical Exam - Vital Signs Last Vital Signs Temp Pulse Resp BP Pulse Ox 97.9 F 87 20 142/69 97 04/15/17 02:38 04/15/17 02:38 04/15/17 02:38 04/15/17 02:38 04/15/17 02:38 ED Treatment Course - LABORATORY CBC & Chemistry Diagram: 04/15/17 04:00 04/15/17 04:29 - ADDITIONAL ORDERS Additional order review: Laboratory Results 04/15/17 04/15/17 04:00 04:00 INR 2.43 H D Sodium Cancelled Potassium Cancelled Chloride Cancelled Carbon Dioxide Cancelled Anion Gap Cancelled BUN Cancelled Creatinine Cancelled Creat Clearance w eGFR Cancelled Random Glucose Cancelled Calcium Cancelled Total Bilirubin Cancelled AST Cancelled ALT Cancelled Alkaline Phosphatase Cancelled B-Natriuretic Peptide Cancelled Total Protein Cancelled Albumin Cancelled 04/15/17 04:00 RBC 4.51 MCV 87.3 MCHC 32.1 RDW 17.0 H MPV 8.7 Neutrophils % Y Lymphocytes % Y - RADIOLOGY Radiology Studies Ordered: Category Date Time Status CHEST PA & LAT [RAD] Stat Radiology 04/15/17 03:49 Ordered Medical Decision Making - Medical Decision Making 04/15/17 05:02 76 yo F with a PMHx of HTN, HLD, asthma, 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 -CBC, CMP, PT/INR, BNP -EKG, CXR 04/15/17 05:47 Laboratory Tests 04/15/17 04/15/17 04/15/17 04:00 04:00 04:29 WBC 13.4 H INR 2.43 H D Potassium 3.2 L D -K-dur 40 mEq INR within therapeutic range. Will discharge to home with close f/u with PCP. *DC/Admit/Observation/Transfer Diagnosis at time of Disposition: DVT prophylaxis Edema Qualifiers: Edema type: unspecified Qualified Code(s): R60.9 - Edema, unspecified - Discharge Dispostion Disposition: HOME Condition at time of disposition: Stable Admit: No - Referrals Referrals: Silvia Fernando MD [Staff Physician] - Leonidas Vuong MD [Staff Physician] - - Patient Instructions Additional Instructions: Please follow up with the primary care doctor as planned. Continue taking the medications prescribed to you by the doctors when you were discharged from the hospital. If you experience any shortness of breath, chest pain, headache, palpitations, fever, vomiting, diarrhea, rectal bleeding, or any new or worsening symptoms, please return to the ER.
--- NOTE | 2017-04-15 05:02 | PDOC ---
*Physical Exam - Vital Signs Last Vital Signs Temp Pulse Resp BP Pulse Ox 97.9 F 87 20 142/69 97 04/15/17 02:38 04/15/17 02:38 04/15/17 02:38 04/15/17 02:38 04/15/17 02:38 ED Treatment Course - LABORATORY CBC & Chemistry Diagram: 04/15/17 04:00 04/15/17 04:29 - ADDITIONAL ORDERS Additional order review: Laboratory Results 04/15/17 04/15/17 04:00 04:00 INR 2.43 H D Sodium Cancelled Potassium Cancelled Chloride Cancelled Carbon Dioxide Cancelled Anion Gap Cancelled BUN Cancelled Creatinine Cancelled Creat Clearance w eGFR Cancelled Random Glucose Cancelled Calcium Cancelled Total Bilirubin Cancelled AST Cancelled ALT Cancelled Alkaline Phosphatase Cancelled B-Natriuretic Peptide Cancelled Total Protein Cancelled Albumin Cancelled 04/15/17 04:00 RBC 4.51 MCV 87.3 MCHC 32.1 RDW 17.0 H MPV 8.7 Neutrophils % Y Lymphocytes % Y Medical Decision Making - Medical Decision Making 04/15/17 05:02 agree with care from JIA Heller *DC/Admit/Observation/Transfer Diagnosis at time of Disposition: DVT prophylaxis, Edema - Discharge Dispostion Disposition: HOME Condition at time of disposition: Stable - Referrals Referrals: Leonidas Vuong MD [Staff Physician] - Silvia Fernando MD [Staff Physician] - - Patient Instructions Additional Instructions: Please follow up with the primary care doctor as planned. Continue taking the medications prescribed to you by the doctors when you were discharged from the hospital. If you experience any shortness of breath, chest pain, headache, palpitations, fever, vomiting, diarrhea, rectal bleeding, or any new or worsening symptoms, please return to the ER.
[2017-04-15 05:20] LABS: ALBUMIN 2.7 g/dl (3.4-5.0); ANION GAP 6 (8-16); BILIRUBIN,TOTAL 0.4 mg/dL (0.2-1.0); CALCIUM 7.9 mg/dL (8.5-10.1); CO2 31 mmol/L (21-32); CREATININE 0.6 mg/dL (0.55-1.02); GLUCOSE,RANDOM 107 mg/dL (74-106); SGOT/AST 24 U/L (15-37); SGPT/ALT 70 U/L (12-78); TOT PROT 5.4 g/dl (6.4-8.2)
[2017-04-15 05:22] LABS: ALK PHOS 68 U/L (45-117)
[2017-04-15] MEDS ORDERED: POTASSIUM CHLORIDE TABS 20 MEQ TABLET.ER (FP) PO ONE ×2 (05:34→05:40)
--- NOTE | 2017-04-15 16:33 | EKG ---
Test Reason : Blood Pressure : / mmHG Vent. Rate : 086 BPM Atrial Rate : 086 BPM P-R Int : 114 ms QRS Dur : 078 ms QT Int : 362 ms P-R-T Axes : 041 004 016 degrees QTc Int : 433 ms SINUS RHYTHM WITH PREMATURE ATRIAL COMPLEXES WITH ABERRANT CONDUCTION OTHERWISE NORMAL ECG WHEN COMPARED WITH ECG OF 12-APR-2017 10:59, NO SIGNIFICANT CHANGE WAS FOUND Confirmed by JOSELIN CISNEROS MD ([id number]) on 04/15/2017 4:33:00 PM Referred By: Confirmed By:JOSELIN CISNEROS MD
== END 2017-04-15 06:16 | disposition home or self-care (01) ==
LOC: JER 02:29
DX: Z86.718 Personal history of other venous thrombosis and embolism (principal); Z79.01 Long term (current) use of anticoagulants; I10 Essential (primary) hypertension; E11.9 Type 2 diabetes mellitus without complications; Z79.84 Long term (current) use of oral hypoglycemic drugs; E78.00 Pure hypercholesterolemia, unspecified; J44.9 Chronic obstructive pulmonary disease, unspecified; J45.909 Unspecified asthma, uncomplicated; G43.909 Migraine, unspecified, not intractable, without status migrainosus; Z86.73 Personal history of transient ischemic attack (TIA), and cerebral infarction without residual deficits; E87.6 Hypokalemia
CPT/HCPCS: 36415; 71020-TC; 80053; 83880; 85025; 85610; 93005; 93010; 99282-25

== ENCOUNTER 2017-04-23 08:45 | Emergency (ER) | payer OTHER ==
[2017-04-23 08:58] VITALS: BP 136/74; PULSE 99; TEMP 98.2; BMI 32.1
--- NOTE | 2017-04-23 09:08 | PDOC ---
History of Present Illness - General History Source: Family Exam Limitations: No Limitations - History of Present Illness Initial Comments: 04/23/17 09:52 76 year old female with PMHx of asthma, TIA, COPD, HTN, HLD, seizures, thyroid disease, gastric ulcers, gastric hernia who presents to the ED with nausea, vomiting and congestion for 4 days. Patient states that after every meal she has an episode of vomiting. She reports she eats about 4 meals per day. Patient reports her last bowel movement was yesterday. The patient was recently admitted for pneumonia and sinusitis, and she finished her antibiotics. She states her congestion and chest tightness never went away. She reports associated dizziness, green right nasal discharge, left sinus pain, dry mouth, and headache. She reports took Albuterol, Ipratropium, Claritin, and Flonase with no relief. She denies abdominal pain, hematemesis, SOB. The patient is Nepali-speaking and her daughter translated for her. <Althea Smith - Last Filed: 04/23/17 09:52> <Ramirez Norton - Last Filed: 04/23/17 14:01> - General Chief Complaint: Nausea/Vomiting Stated Complaint: NAUSEA/VOMITING Time Seen by Provider: 04/23/17 09:07 Past History <Althea Smith - Last Filed: 04/23/17 09:52> - Past Medical History Anemia: No Asthma: Yes Cancer: No Cardiac Disorders: No CVA: Yes (tia) COPD: Yes CHF: No Dementia: No Diabetes: No GI Disorders: Yes (ULCER, HERNIA) Disorders: No HTN: Yes Hypercholesterolemia: Yes Liver Disease: No Suicide Attempt (Hx): No Seizures: Yes Thyroid Disease: Yes - Surgical History Abdominal Surgery: No Appendectomy: No Cardiac Surgery: No Cholecystectomy: No Lung Surgery: No Neurologic Surgery: No Orthopedic Surgery: No - Immunization History Immunization Up to Date: No - Psycho/Social/Smoking Cessation Hx Anxiety: No Suicidal Ideation: No Smoking Status: No Smoking History: Never smoked Have you smoked in the past 12 months: No Number of Cigarettes Smoked Daily: 0 Information on smoking cessation initiated: No Hx Alcohol Use: No Drug/Substance Use Hx: No Substance Use Type: None Hx Substance Use Treatment: No <Ramirez Norton - Last Filed: 04/23/17 14:01> - Past Medical History Allergies/Adverse Reactions: Allergies Allergy/AdvReac Type Severity Reaction Status Date / Time Penicillins Allergy Swelling Verified 04/15/17 02:38 Home Medications: Ambulatory Orders Albuterol 0.083% Nebulizer Prabha [Ventolin 0.083%] 1 neb NEB Q4H PRN 04/15/17 Albuterol Sulfate Inhaler - [Ventolin Hfa Inhaler -] 1 - 2 inh PO Q4H 04/15/17 Atorvastatin Ca [Lipitor] 40 mg PO HS 04/15/17 Budesonide/Formeterol Fumarate [SYMBICORT 160/4.5mcg -] 2 inh PO BID 04/15/17 Cholecalciferol (Vitamin D3) [Vitamin D3] 10,000 unit PO WEEKLY 04/15/17 Enoxaparin [Lovenox -] 80 mg SQ BID 04/15/17 Fluticasone Prop 0.05% Nasal [Flonase -] 1 - 2 spray NS BID 04/15/17 Folic Acid - 1 mg PO DAILY 04/15/17 Levetiracetam [Keppra -] 750 mg PO BID 04/15/17 Levothyroxine [Synthroid -] 25 mcg PO DAILY 04/15/17 Linaclotide [Linzess] 290 mcg PO DAILY 04/15/17 Losartan/Hydrochlorothiazide [Losartan-Hctz 100-25 mg Tab] 1 each PO DAILY 04/15 Meclizine HCl [Antivert -] 25 mg PO TID PRN 04/15/17 Montelukast Na [Singulair -] 10 mg PO HS 04/15/17 Nystatin Oral Suspension - [Nystatin Oral Susp 877878 Units/5 ML -] 10 ml PO TID 04/15/17 Pantoprazole Sodium [Protonix -] 40 mg PO DAILY 04/15/17 Prednisone [Prednisone 50 MG TABLETS] 50 mg PO ASDIR 04/15/17 Sitagliptin Phosphate [Januvia] 50 mg PO DAILY@0700 04/15/17 Warfarin Sodium [Coumadin] 2 mg PO DAILY 04/15/17 Levofloxacin [Levaquin -] 500 mg PO DAILY #14 tablet 04/23/17 Ondansetron [Zofran *Odt*] 8 mg SL TID #30 od.tablet 04/23/17 Review of Systems - Review of Systems Able to Perform ROS?: Yes Comments:: 04/23/17 09:52 GENERAL/CONSTITUTIONAL: No fever or chills. No weakness. HEAD, EYES, EARS, NOSE AND THROAT: (+) congestion, nasal discharge, left sinus pain, dry mouth. No change in vision. No ear pain or discharge. No sore throat. CARDIOVASCULAR: (+) chest tightness.No chest pain or shortness of breath. RESPIRATORY: No cough, wheezing, or hemoptysis. GASTROINTESTINAL: (+) nausea, vomiting, No diarrhea or constipation. GENITOURINARY: No dysuria, frequency, or change in urination. MUSCULOSKELETAL: No joint or muscle swelling or pain. No neck or back pain. SKIN: No rash NEUROLOGIC: (+) dizziness, headache, No vertigo, loss of consciousness, or change in strength/sensation. ENDOCRINE: No increased thirst. No abnormal weight change. HEMATOLOGIC/LYMPHATIC: No anemia, easy bleeding, or history of blood clots. ALLERGIC/IMMUNOLOGIC: No hives or skin allergy. <Althea Smith - Last Filed: 04/23/17 09:52> *Physical Exam - Vital Signs Last Vital Signs Temp Pulse Resp BP Pulse Ox 98.2 F 99 H 20 136/74 95 04/23/17 08:56 04/23/17 08:56 04/23/17 08:56 04/23/17 08:56 04/23/17 08:56 - Physical Exam Comments: 04/23/17 09:52 GENERAL: Awake, alert, and fully oriented, in no acute distress HEAD: Tenderness to palpation in left frontal and maxillary sinus. Negative transillumination. No signs of trauma EYES: PERRLA, EOMI, sclera anicteric, conjunctiva clear ENT: Auricles normal inspection, hearing grossly normal, nares patent, oropharynx clear without exudates. Moist mucosa NECK: Normal ROM, supple, no lymphadenopathy, JVD, or masses LUNGS: Minimal wheezing in left upper lobe. No crackles HEART: Regular rate and rhythm, normal S1 and S2, no murmurs, rubs or gallops ABDOMEN: Soft, nontender, normoactive bowel sounds. No guarding, no rebound. No masses EXTREMITIES: Normal range of motion, no edema. No clubbing or cyanosis. No cords, erythema, or tenderness NEUROLOGICAL: Cranial nerves II through XII grossly intact. Normal speech, normal gait SKIN: Warm, Dry, normal turgor, no rashes or lesions noted. <Althea Smith - Last Filed: 04/23/17 09:52> - Vital Signs Last Vital Signs Temp Pulse Resp BP Pulse Ox 98.2 F 99 H 20 136/74 95 04/23/17 08:56 04/23/17 08:56 04/23/17 08:56 04/23/17 08:56 04/23/17 08:56 <Ramirez Norton - Last Filed: 04/23/17 14:01> ED Treatment Course - LABORATORY CBC & Chemistry Diagram: 04/23/17 10:40 04/23/17 10:40 <Ramirez Norton - Last Filed: 04/23/17 14:01> *DC/Admit/Observation/Transfer - Attestations Scribe Attestion: 04/23/17 09:53 Documentation prepared by Althea Smith, acting as general medical practitioner for Ramirez Norton DO. <Althea Smith - Last Filed: 04/23/17 09:52> - Discharge Dispostion Admit: No <Ramirez Norton - Last Filed: 04/23/17 14:01> Diagnosis at time of Disposition: Chronic ethmoidal sinusitis Urinary tract infection Qualifiers: Urinary tract infection type: site unspecified Hematuria presence: without hematuria Qualified Code(s): N39.0 - Urinary tract infection, site not specified - Discharge Dispostion Disposition: HOME Condition at time of disposition: Good - Prescriptions Prescriptions: Levofloxacin [Levaquin -] 500 mg PO DAILY #14 tablet Ondansetron [Zofran *Odt*] 8 mg SL TID #30 od.tablet - Patient Instructions Printed Discharge Instructions: DI for Sinusitis
[2017-04-23] MEDS ORDERED: SODIUM CHLORIDE 1,000 ML IV STA (09:36)
[2017-04-23] MEDS ORDERED: ONDANSETRON 4 MG/2 ML VIAL IVPUSH ONE (09:37)
[2017-04-23] MEDS ORDERED: ONDANSETRON 4 MG/2 ML VIAL ONE (11:01)
[2017-04-23 11:06] LABS: EOSINOPHIL 1.8 % (0-4.5); MCH 28.9 pg (25.7-33.7); MCHC 32.7 g/dl (32.0-36.0); MEAN CELL VOLUME 88.5 fl (80-96); MEAN PLT VOLUME 8.2 fl (7.5-11.1); NEUTROPHILS 75.2 % (42.8-82.8); PLATELET COUNT 186 K/MM3 (134-434); RDW 17.5 % (11.6-15.6); WHITE BLOOD COUNT 10.4 K/mm3 (4.0-10.0)
[2017-04-23 11:18] LABS: INR 3.46 (0.82-1.09)
[2017-04-23 11:32] LABS: ALBUMIN 3.1 g/dl (3.4-5.0); ANION GAP 8 (8-16); BILIRUBIN,TOTAL 0.5 mg/dL (0.2-1.0); CALCIUM 8.9 mg/dL (8.5-10.1); CO2 29 mmol/L (21-32); CREATININE 0.7 mg/dL (0.55-1.02); GLUCOSE,RANDOM 125 mg/dL (74-106); SGOT/AST 24 U/L (15-37); SGPT/ALT 46 U/L (12-78); TOT PROT 5.8 g/dl (6.4-8.2)
[2017-04-23 11:33] LABS: ALK PHOS 69 U/L (45-117)
[2017-04-23 11:53] LABS: URINE APPEARANCE CLEAR; URINE BILIRUBIN NEGATIVE (NEGATIVE); URINE BLOOD NEGATIVE (NEGATIVE); URINE COLOR STRAW; URINE GLUCOSE (UA) NEGATIVE (NEGATIVE); URINE KETONE NEGATIVE (NEGATIVE); URINE NITRITE NEGATIVE (NEGATIVE); URINE PROTEIN NEGATIVE (NEGATIVE); URINE UROBILINOGEN NEGATIVE mg/dL (0.2-1.0)
[2017-04-23 11:59] LABS: URINE LEUK ESTERASE 1+ (NEGATIVE)
[2017-04-23 12:05] LABS: URINE MUCUS RARE; URINE RBC 1 /hpf (0-3); URINE WBC 1 /hpf (3-5)
== END 2017-04-23 15:10 | disposition home or self-care (01) ==
LOC: JER 08:45
PROC: 3E0337Z Introduction of Electrolytic and Water Balance Substance into Peripheral Vein, Percutaneous Approach (ICD-10-PCS; principal; 2017-04-23)
DX: N39.0 Urinary tract infection, site not specified (principal); J32.2 Chronic ethmoidal sinusitis
CPT/HCPCS: 36415; 80053; 81003; 81015; 85025; 85610; 96360; 99282-25

== ENCOUNTER 2017-05-02 08:34 | Emergency (ER) | payer OTHER ==
[2017-05-02 08:44] VITALS: TEMP 98; BMI 30.2
--- NOTE | 2017-05-02 09:43 | PDOC ---
History of Present Illness - General History Source: Patient Exam Limitations: No Limitations - History of Present Illness Initial Comments: 05/02/17 10:20 The patient is a 76 year old female, with a significant past medical history of asthma, TIA, COPD, HTN, HLD, seizures, thyroid disease, gastric ulcers, gastric hernia, who presents to the emergency department with SOB, productive cough and congestion for the past three days. Patient was recently admitted on 04/04/2017 for Atypical PNA Dyspnea and was discharged on 04/13/2017 with prednisone, inhaled bronchodilators and antibiotics. During the stay, patient had 5 CRX's and Chest CTA which revealed perihilar predominant ground glass densities. Patient subsequently returned to the ED 2 days after admission for leg swelling. Patient presents to the ED for further evaluation with daughter who translated for her. Upon arrival, Patient's O2 saturation was 99 on Room air. She denies chest pain, headache or dizziness. She denies fever, chills, abdominal pain, nausea, vomit, diarrhea. She denies dysuria, frequency, urgency or hematuria. Allergies: Penicillins Past surgical history: None Social history: None PCP: Dr. Jackson <Maris Jaime - Last Filed: 05/02/17 10:35> <Ramirez Norton - Last Filed: 05/02/17 14:02> - General Chief Complaint: Shortness of Breath Stated Complaint: SOB Time Seen by Provider: 05/02/17 09:42 Past History <Maris Jaime - Last Filed: 05/02/17 10:35> - Past Medical History Anemia: No Asthma: Yes Cancer: No Cardiac Disorders: No CVA: Yes (tia) COPD: Yes CHF: No Dementia: No Diabetes: No GI Disorders: Yes (ULCER, HERNIA) Disorders: No HTN: Yes Hypercholesterolemia: Yes Liver Disease: No Suicide Attempt (Hx): No Seizures: Yes Thyroid Disease: Yes - Surgical History Abdominal Surgery: No Appendectomy: No Cardiac Surgery: No Cholecystectomy: No Lung Surgery: No Neurologic Surgery: No Orthopedic Surgery: No - Immunization History Immunization Up to Date: No - Psycho/Social/Smoking Cessation Hx Anxiety: No Suicidal Ideation: No Smoking Status: No Smoking History: Never smoked Have you smoked in the past 12 months: No Number of Cigarettes Smoked Daily: 0 Information on smoking cessation initiated: No Hx Alcohol Use: No Drug/Substance Use Hx: No Substance Use Type: None Hx Substance Use Treatment: No <Ramirez Norton - Last Filed: 05/02/17 14:02> - Past Medical History Allergies/Adverse Reactions: Allergies Allergy/AdvReac Type Severity Reaction Status Date / Time Penicillins Allergy Swelling Verified 05/02/17 08:39 Home Medications: Ambulatory Orders Albuterol 0.083% Nebulizer Prabha [Ventolin 0.083%] 1 neb NEB Q4H PRN 04/15/17 Albuterol Sulfate Inhaler - [Ventolin Hfa Inhaler -] 1 - 2 inh PO Q4H 04/15/17 Atorvastatin Ca [Lipitor] 40 mg PO HS 04/15/17 Budesonide/Formeterol Fumarate [SYMBICORT 160/4.5mcg -] 2 inh PO BID 04/15/17 Cholecalciferol (Vitamin D3) [Vitamin D3] 10,000 unit PO WEEKLY 04/15/17 Fluticasone Prop 0.05% Nasal [Flonase -] 1 - 2 spray NS BID 04/15/17 Folic Acid - 1 mg PO DAILY 04/15/17 Levetiracetam [Keppra -] 750 mg PO BID 04/15/17 Levothyroxine [Synthroid -] 25 mcg PO DAILY 04/15/17 Linaclotide [Linzess] 290 mcg PO DAILY 04/15/17 Losartan/Hydrochlorothiazide [Losartan-Hctz 100-25 mg Tab] 1 each PO DAILY 04/15 Meclizine HCl [Antivert -] 25 mg PO TID PRN 04/15/17 Montelukast Na [Singulair -] 10 mg PO HS 04/15/17 Nystatin Oral Suspension - [Nystatin Oral Susp 659809 Units/5 ML -] 10 ml PO TID 04/15/17 Pantoprazole Sodium [Protonix -] 40 mg PO DAILY 04/15/17 Prednisone [Prednisone 50 MG TABLETS] 30 mg PO ASDIR 04/15/17 Sitagliptin Phosphate [Januvia] 50 mg PO DAILY@0700 04/15/17 Warfarin Sodium [Coumadin] 2 mg PO DAILY 04/15/17 Levofloxacin [Levaquin -] 500 mg PO DAILY #14 tablet 04/23/17 Ondansetron [Zofran *Odt*] 8 mg SL TID #30 od.tablet 04/23/17 Salmeterol/Fluticasone [Advair 250Mcg/50Mcg] 1 inh PO BID 05/02/17 Review of Systems - Review of Systems Able to Perform ROS?: Yes Comments:: 05/02/17 10:20 GENERAL/CONSTITUTIONAL: No fever or chills. No weakness. HEAD, EYES, EARS, NOSE AND THROAT: No change in vision. No ear pain or discharge. No sore throat. CARDIOVASCULAR: No chest pain or shortness of breath. RESPIRATORY: + cough. +congestion. No wheezing, or hemoptysis. GASTROINTESTINAL: No nausea, vomiting, diarrhea or constipation. GENITOURINARY: No dysuria, frequency, or change in urination. MUSCULOSKELETAL: No joint or muscle swelling or pain. No neck or back pain. SKIN: No rash NEUROLOGIC: No headache, vertigo, loss of consciousness, or change in strength/ sensation. ENDOCRINE: No increased thirst. No abnormal weight change. HEMATOLOGIC/LYMPHATIC: No anemia, easy bleeding, or history of blood clots. ALLERGIC/IMMUNOLOGIC: No hives or skin allergy. <Maris Jaime - Last Filed: 05/02/17 10:35> *Physical Exam - Vital Signs Last Vital Signs Temp Pulse Resp BP Pulse Ox 98.0 F 110 H 24 140/77 99 05/02/17 08:40 05/02/17 08:40 05/02/17 08:40 05/02/17 08:40 05/02/17 09:32 - Physical Exam Comments: 05/02/17 10:20 GENERAL: Awake, alert, and fully oriented, in no acute distress HEAD: No signs of trauma EYES: PERRLA, EOMI, sclera anicteric, conjunctiva clear ENT: Auricles normal inspection, hearing grossly normal, nares patent, oropharynx clear without exudates. Moist mucosa NECK: Normal ROM, supple, no lymphadenopathy, JVD, or masses LUNGS: Breath sounds equal, clear to auscultation bilaterally. No wheezes, and no crackles HEART: Regular rate and rhythm, normal S1 and S2, no murmurs, rubs or gallops ABDOMEN: Soft, nontender, normoactive bowel sounds. No guarding, no rebound. No masses EXTREMITIES: Normal range of motion, no edema. No clubbing or cyanosis. No cords, erythema, or tenderness NEUROLOGICAL: Cranial nerves II through XII grossly intact. Normal speech, normal gait SKIN: Warm, Dry, normal turgor, no rashes or lesions noted. <Maris Jaime - Last Filed: 05/02/17 10:35> - Vital Signs Last Vital Signs Temp Pulse Resp BP Pulse Ox 98.0 F 110 H 24 140/77 99 05/02/17 08:40 05/02/17 08:40 05/02/17 08:40 05/02/17 08:40 05/02/17 09:32 <Ramirez Norton - Last Filed: 05/02/17 14:02> ED Treatment Course - LABORATORY CBC & Chemistry Diagram: 05/02/17 10:59 05/02/17 10:59 <Ramirez Norton - Last Filed: 05/02/17 14:02> Medical Decision Making - Medical Decision Making 05/02/17 13:23 patient is already on antibiotics and she is complaining about dry mouth, palpitations, and dyspnea, that resolved on it's own. Will DC home and have her follow up with her pmd. Laboratory work up was negative/bening. She has had multiple X-Rays since this illness started roughly 2 months ago. She has even had a CTA and Cat scan of her chest along with a sinus CT. <Ramirez Norton - Last Filed: 05/02/17 14:02> *DC/Admit/Observation/Transfer - Attestations Scribe Attestion: 05/02/17 10:20 Documentation prepared by Maris Jaime, acting as medical anthropology director for Ramirez Norton MD <Maris Jaime - Last Filed: 05/02/17 10:35> - Attestations Physician Attestion: 05/02/17 09:43 I, Dr. Ramirez Norton, attest that this document has been prepared under my direction and personally reviewed by me in its entirety. I further attest, that it accurately reflects all work, treatment, procedures and medical decision -making performed by me. <Ramirez Norton - Last Filed: 05/02/17 14:02> Diagnosis at time of Disposition: Cough Constipation Qualifiers: Constipation type: unspecified constipation type Qualified Code(s): K59.00 - Constipation, unspecified - Discharge Dispostion Disposition: HOME Condition at time of disposition: Improved - Referrals Referrals: Morales Jackson MD [Primary Care Provider] - - Patient Instructions Printed Discharge Instructions: DI for Constipation Additional Instructions: Venessa Piedra we could work this out for today. Continue the antibiotic you are taking. Return to the ED if you get worse or new symptoms develop. Drink the second bottle of mag citrate when you get home. Start using benifiber every day. Follow up with your doctor this week. Best- Dr. Ramirez Norton
[2017-05-02] MEDS ORDERED: POLYETHYLENE GLYCOL 3350 119 GM BTL PO ONE (10:02)
[2017-05-02] MEDS ORDERED: MAGNESIUM CITRATE 300 ML BOTTLE PO ONE ×2 (10:04→14:02)
[2017-05-02] MEDS ORDERED: MAGNESIUM CITRATE 300 ML BOTTLE ONE ×2 (10:32→14:15)
[2017-05-02] MEDS ORDERED: ACETAMINOPHEN 325 MG TABLET (FP) PO ONE (11:52)
[2017-05-02 12:09] LABS: BASOPHIL 0.3 % (0-2.0); EOSINOPHIL 0.3 % (0-4.5); MCH 28.7 pg (25.7-33.7); MCHC 32.7 g/dl (32.0-36.0); MEAN PLT VOLUME 7.8 fl (7.5-11.1); NEUTROPHILS 86.6 % (42.8-82.8); PLATELET COUNT 309 K/MM3 (134-434); RDW 16.9 % (11.6-15.6); WHITE BLOOD COUNT 8.1 K/mm3 (4.0-10.0)
[2017-05-02] MEDS ORDERED: ACETAMINOPHEN 325 MG TABLET (FP) ONE (12:09)
[2017-05-02 12:21] LABS: INR 3.14 (0.82-1.09); PROTHROMBIN TIME (PATIENT) 35.4 SEC (9.98-11.88)
[2017-05-02 12:38] LABS: ALBUMIN 3.4 g/dl (3.4-5.0); ANION GAP 7 (8-16); CALCIUM 9.4 mg/dL (8.5-10.1); CO2 29 mmol/L (21-32); GLUCOSE,RANDOM 116 mg/dL (74-106)
[2017-05-02] MEDS ORDERED: SODIUM CHLORIDE 1,000 ML IV STA (12:41)
[2017-05-02] MEDS ORDERED: CIPROFLOXACIN 400 MG/D5W 200 ML IVPB ONE (12:41)
[2017-05-02] MEDS ORDERED: EPINEPHrine 1:1,000 1 MG/1 ML - 30ML VIAL (INJECTION) IV ONE (12:42)
[2017-05-02 12:44] LABS: ALK PHOS 67 U/L (45-117); BILIRUBIN,TOTAL 0.6 mg/dL (0.2-1.0); CPK 196 IU/L (26-192); SGOT/AST 23 U/L (15-37); SGPT/ALT 35 U/L (12-78); TOT PROT 6.5 g/dl (6.4-8.2); TROPONIN I < 0.02 ng/ml (0.00-0.05)
[2017-05-02 14:23] VITALS: BP 119/62; PULSE 91
--- NOTE | 2017-05-03 13:38 | EKG ---
Test Reason : Blood Pressure : / mmHG Vent. Rate : 101 BPM Atrial Rate : 101 BPM P-R Int : 122 ms QRS Dur : 082 ms QT Int : 358 ms P-R-T Axes : 048 028 037 degrees QTc Int : 464 ms SINUS TACHYCARDIA WITH PREMATURE SUPRAVENTRICULAR COMPLEXES OTHERWISE NORMAL ECG WHEN COMPARED WITH ECG OF 15-APR-2017 04:31, NO SIGNIFICANT CHANGE WAS FOUND Confirmed by SELENA GUAJARDO MD ([id number]) on 05/03/2017 1:38:23 PM Referred By: Confirmed By:SELENA GUAJARDO MD
== END 2017-05-02 14:55 | disposition home or self-care (01) ==
LOC: JER 08:34
DX: R05 Cough (principal); K59.00 Constipation, unspecified; J45.909 Unspecified asthma, uncomplicated; Z86.73 Personal history of transient ischemic attack (TIA), and cerebral infarction without residual deficits; J44.9 Chronic obstructive pulmonary disease, unspecified; I10 Essential (primary) hypertension; E78.5 Hyperlipidemia, unspecified; E07.9 Disorder of thyroid, unspecified
CPT/HCPCS: 36415; 80053; 82553; 83880; 84484; 85025; 85610; 93005; 93010; 99285-25

== ENCOUNTER 2017-06-13 08:07 | Observation (INO) | payer OTHER ==
[2017-06-13 08:22] VITALS: BMI 32.1
[2017-06-13 08:56] LABS: BASOPHIL 0.8 % (0-2.0); EOSINOPHIL 2.3 % (0-4.5); MCH 28.7 pg (25.7-33.7); MCHC 32.5 g/dl (32.0-36.0); MEAN CELL VOLUME 88.2 fl (80-96); MEAN PLT VOLUME 8.6 fl (7.5-11.1); NEUTROPHILS 69.6 % (42.8-82.8); PLATELET COUNT 238 K/MM3 (134-434); RDW 15.8 % (11.6-15.6); WHITE BLOOD COUNT 10.4 K/mm3 (4.0-10.0)
[2017-06-13 09:25] LABS: ALBUMIN 3.3 g/dl (3.4-5.0); ALK PHOS 69 U/L (45-117); ANION GAP 5 (8-16); BILIRUBIN,TOTAL 0.7 mg/dL (0.2-1.0); CALCIUM 8.8 mg/dL (8.5-10.1); CO2 28 mmol/L (21-32); CREATININE 0.7 mg/dL (0.55-1.02); GLUCOSE,RANDOM 96 mg/dL (74-106); SGOT/AST 18 U/L (15-37); SGPT/ALT 21 U/L (12-78); TOT PROT 6.1 g/dl (6.4-8.2)
[2017-06-13 09:28] LABS: CPK 84 IU/L (26-192); TROPONIN I < 0.02 ng/ml (0.00-0.05)
[2017-06-13 09:40] LABS: INR 2.81 (0.82-1.09); PROTHROMBIN TIME (PATIENT) 31.6 SEC (9.98-11.88)
--- NOTE | 2017-06-13 10:04 | PDOC ---
History of Present Illness - General Chief Complaint: Chest Pain Stated Complaint: CHEST PAIN Time Seen by Provider: 06/13/17 08:23 History Source: Patient, Family Exam Limitations: Language Barrier - History of Present Illness Initial Comments: 06/13/17 09:58 Patient is a 76F with history of DVT (bilateral, 3 times, last 2 years ago), recent admission (d/c 6 wks ago, for pneumonia), COPD/Asthma, TIA, HTN, HLD, Seizure disorder, gastric ulcers and hernia here today complaining of chest pain. The pain has been intermittent for the past week, slowing worsening until today. The pain is located substernally. Associated symptoms include nausea and left arm numbness. She describes the chest pain as sharp and gets worse with inspiration. She says that she's had a cough lately with trace amount of bright red blood in it. She also complains of leg pain, right more than left, behind the knee. Past History - Past Medical History Allergies/Adverse Reactions: Allergies Allergy/AdvReac Type Severity Reaction Status Date / Time Penicillins Allergy Swelling Verified 06/13/17 08:22 Home Medications: Ambulatory Orders Albuterol Sulfate Inhaler - [Ventolin Hfa Inhaler -] 1 - 2 inh PO Q4H 04/15/17 Budesonide/Formeterol Fumarate [SYMBICORT 160/4.5mcg -] 2 inh PO BID 04/15/17 Cholecalciferol (Vitamin D3) [Vitamin D3] 10,000 unit PO WEEKLY 04/15/17 Fluticasone Prop 0.05% Nasal [Flonase -] 1 - 2 spray NS BID 04/15/17 Levetiracetam [Keppra -] 750 mg PO BID 04/15/17 Levothyroxine [Synthroid -] 25 mcg PO DAILY 04/15/17 Linaclotide [Linzess] 290 mcg PO DAILY 04/15/17 Losartan/Hydrochlorothiazide [Losartan-Hctz 100-25 mg Tab] 1 each PO DAILY 04/15 Montelukast Na [Singulair -] 10 mg PO HS 04/15/17 Pantoprazole Sodium [Protonix -] 40 mg PO DAILY 04/15/17 Warfarin Sodium [Coumadin] 2 mg PO ASDIR 04/15/17 Salmeterol/Fluticasone [Advair 250Mcg/50Mcg] 1 inh PO BID 05/02/17 Nitroglycerin 0.4 mg SL PRN 06/13/17 Simvastatin 40 mg PO HS 06/13/17 Anemia: No Asthma: Yes Cancer: No Cardiac Disorders: Yes (angina) CVA: Yes (tia) COPD: Yes CHF: No Dementia: No Diabetes: No GI Disorders: Yes (ULCER, HERNIA) Disorders: No HTN: Yes Hypercholesterolemia: Yes Liver Disease: No Suicide Attempt (Hx): No Seizures: Yes Thyroid Disease: Yes - Surgical History Abdominal Surgery: No Appendectomy: No Cardiac Surgery: No Cholecystectomy: No Lung Surgery: No Neurologic Surgery: No Orthopedic Surgery: No - Immunization History Immunization Up to Date: No - Psycho/Social/Smoking Cessation Hx Anxiety: No Suicidal Ideation: No Smoking Status: No Smoking History: Never smoked Have you smoked in the past 12 months: No Number of Cigarettes Smoked Daily: 0 Information on smoking cessation initiated: No Hx Alcohol Use: No Drug/Substance Use Hx: No Substance Use Type: None Hx Substance Use Treatment: No Review of Systems - Review of Systems Comments:: 06/13/17 10:04 GENERAL/CONSTITUTIONAL: No fever. Positive for chills. No weakness. HEAD, EYES, EARS, NOSE AND THROAT: No change in vision. No ear pain or discharge. No sore throat. CARDIOVASCULAR: Positive for chest pain and shorntess of breath. RESPIRATORY: Positive hemoptysis and cough. Negative for wheezing. GASTROINTESTINAL: Positive for nausea. Negative for vomiting, diarrhea or constipation. GENITOURINARY: No dysuria, frequency, or change in urination. SKIN: No rash NEUROLOGIC: No headache, vertigo, loss of consciousness, or change in strength/ sensation. ENDOCRINE: No increased thirst. No abnormal weight change HEMATOLOGIC/LYMPHATIC: No anemia, easy bleeding. Positive for history of blood clots. ALLERGIC/IMMUNOLOGIC: No hives or skin allergy. *Physical Exam - Vital Signs Last Vital Signs Temp Pulse Resp BP Pulse Ox 97.6 F 74 18 121/61 100 06/13/17 08:12 06/13/17 08:12 06/13/17 08:12 06/13/17 08:12 06/13/17 08:12 - Physical Exam Comments: 06/13/17 10:02 GENERAL: Awake, alert, and fully oriented, in no acute distress HEAD: No signs of trauma, normocephalic, atraumatic EYES: PERRLA, EOMI, sclera anicteric, conjunctiva clear ENT: Auricles normal inspection, hearing grossly normal, nares patent, oropharynx clear without exudates. Moist mucosa NECK: Normal ROM, supple, no lymphadenopathy, JVD, or masses LUNGS: No distress, speaks full sentences, clear to auscultation bilaterally HEART: Regular rate and rhythm, normal S1 and S2, no murmurs, rubs or gallops, peripheral pulses normal and equal bilaterally. ABDOMEN: Soft, nontender, normoactive bowel sounds. No guarding, no rebound. No masses EXTREMITIES: Normal inspection, Normal range of motion, no edema. Tender behind right and left knee. NEUROLOGICAL: Cranial nerves II through XII grossly intact. Normal speech, no focal sensorimotor deficits SKIN: Warm, Dry, normal turgor, no rashes or lesions noted. ED Treatment Course - LABORATORY CBC & Chemistry Diagram: 06/13/17 08:45 06/13/17 08:40 - ADDITIONAL ORDERS Additional order review: Laboratory Results 06/13/17 06/13/17 08:45 08:40 PT with INR 31.60 H INR 2.81 H Sodium 141 Potassium 4.1 Chloride 108 H Carbon Dioxide 28 Anion Gap 5 L BUN 14 Creatinine 0.7 D Creat Clearance w eGFR > 60 Random Glucose 96 Calcium 8.8 Magnesium 2.0 Total Bilirubin 0.7 AST 18 D ALT 21 D Alkaline Phosphatase 69 Creatine Kinase 84 Troponin I < 0.02 Total Protein 6.1 L Albumin 3.3 L 06/13/17 08:45 RBC 4.45 MCV 88.2 MCHC 32.5 RDW 15.8 H MPV 8.6 D Neutrophils % 69.6 Lymphocytes % 19.5 D Monocytes % 7.8 D Eosinophils % 2.3 D Basophils % 0.8 - RADIOLOGY Radiology Studies Ordered: Category Date Time Status CHEST X-RAY PORTABLE* [RAD] Stat Radiology 06/13/17 08:36 Completed DUPLEX VASCUL US-2LEGS [US] Stat Ultrasound 06/13/17 08:37 Ordered Medical Decision Making - Medical Decision Making 06/13/17 10:05 Patient is a 76F with history of DVT (bilateral, 3 times, last 2 years ago), recent admission (d/c 6 wks ago, for pneumonia), COPD/Asthma, TIA, HTN, HLD, Seizure disorder, gastric ulcers and hernia here today complaining of chest pain. Vital signs stable and normal. Differential diagnosis includes, but is not limited to: ACS, PE, DVT, arrhythmias. Will evaluate with labs, cxr, ultrasound and CTA. ECG shows normal sinus rhythm with one PVC, no ST elevations, no t-wave inversions, rate = 87, QTc = 440, VA 122 06/13/17 10:08 Laboratory Tests 06/13/17 06/13/17 06/13/17 08:40 08:45 08:45 WBC 10.4 H Hgb 12.7 Hct 39.2 Plt Count 238 D PT with INR 31.60 H INR 2.81 H Troponin I < 0.02 CBC shows small white count, otherwise normal. INR elevated, on warfarin. Trop neg. 06/13/17 10:09 CXR shows no acute cardiopulmonary process. 06/13/17 11:40 Ultrasound shows no evidence of DVT. 06/13/17 12:16 CTA shows no evidence of pneumonia or PE. 06/13/17 17:20 Admitted to [facility]. *DC/Admit/Observation/Transfer Diagnosis at time of Disposition: Chest pain Qualifiers: Chest pain type: other chest pain Qualified Code(s): R07.89 - Other chest pain - Discharge Dispostion Condition at time of disposition: Stable Admit: No
--- NOTE | 2017-06-13 10:39 | PDOC ---
Attending Attestation - Resident Resident Name: Clyde Erickson - ED Attending Attestation I have performed the following: I have examined & evaluated the patient, The case was reviewed & discussed with the resident, I agree w/resident's findings & plan, Exceptions are as noted - HPI HPI: 06/13/17 11:29 76 F with h/o DVT on coumadin, COPD/Asthma, TIA, HTN, HLD, Seizure disorder, gastric ulcers and hernia, presenting with 3 days of chest pain. Pt describes left sided chest pain worse with deep inspiration. It is associated with SOB. No F/C. Pt initially thought it was related to asthma, but the symptoms worsened. Pt denies leg swelling. Was recently hospitalized for PNA last week. - Physicial Exam PE: 06/13/17 11:32 "GENERAL: Awake, alert, and fully oriented, in no acute distress HEAD: No signs of trauma EYES: PERRLA, EOMI, sclera anicteric, conjunctiva clear ENT: Auricles normal inspection, hearing grossly normal, nares patent, oropharynx clear without exudates. Moist mucosa NECK: Nontender, no stepoffs, Normal ROM, supple, no lymphadenopathy, JVD, or masses LUNGS: Breath sounds equal, clear to auscultation bilaterally. No wheezes, and no crackles HEART: Regular rate and rhythm, normal S1 and S2, no murmurs, rubs or gallops ABDOMEN: Soft, nontender, normoactive bowel sounds. No guarding, no rebound. No masses EXTREMITIES: Normal range of motion, no edema. No clubbing or cyanosis. No cords, erythema, or tenderness NEUROLOGICAL: Cranial nerves II through XII intact. 5/5 strength and sensation in all extremities, Normal speech, normal gait SKIN: Warm, Dry, normal turgor, no rashes or lesions noted. " - Medical Decision Making 06/13/17 11:33 76 F with pleuritic chest pain. Concerning for acute PE given h/o DVT. Also consider ACS. - Labs, trop - CXR - CTPE - Admit
[2017-06-13] MEDS ORDERED: MAG HYDROX/AL HYDROX/SIMETH 30 ML UNIT-DOSE CUP PO ONE (12:25)
[2017-06-13] MEDS ORDERED: MAG HYDROX/AL HYDROX/SIMETH 30 ML UNIT-DOSE CUP ONE (12:42)
[2017-06-13] MEDS ORDERED: ALBUTEROL SO4 6.7 GM HFA INHALER IH SCH (12:45)
--- NOTE | 2017-06-13 12:52 | CON.CARD ---
Consult Consult Specialty:: Cardiology Referred by:: Hospitalist Medicine Reason for Consultation:: Chest pain - History of Present Illness Chief Complaint: Chest pain History of Present Illness: 76 yo F history DVT on coumadin per INR, CAD, HTN, TIA, chol, asthma, seizure, diastolic dysfunction with moderate presented with chest pain, reports left arm numbness, possible exertional component (unclear history), SOB, denies near or true syncope, palpitations, orthopnea, PND or LE edema. History obtained with assistance from supervisor mold yard phone. 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: CVA, Seizure ( last seizure >10yrs ago), Vertigo Cardio/Vascular: Yes: HTN Pulmonary: Yes: Asthma Gastrointestinal: Yes: Gastritis, Peptic Ulcer Disease Musculoskeletal: Yes: Other (arthritis (type not specificed)) ENT: Yes: Sinusitis Endocrine: Yes: Hypothyroidism Additional Medical History: DVTs, HPL - Past Surgical History Past Surgical History: Yes: Breast Biopsy, Hysterectomy - Alcohol/Substance Use Hx Alcohol Use: No History of Substance Use: reports: None - Smoking History Smoking history: Never smoked Have you smoked in the past 12 months: No Aproximately how many cigarettes per day: 0 - Social History Occupation: retired 20 yrs ago History of Recent Travel: Yes (traveled from [place]) Home Medications - Allergies Allergies/Adverse Reactions: Allergies Allergy/AdvReac Type Severity Reaction Status Date / Time Penicillins Allergy Swelling Verified 06/13/17 08:22 - Home Medications Home Medications: Ambulatory Orders Albuterol Sulfate Inhaler - [Ventolin Hfa Inhaler -] 1 - 2 inh PO Q4H 04/15/17 Budesonide/Formeterol Fumarate [SYMBICORT 160/4.5mcg -] 2 inh PO BID 04/15/17 Cholecalciferol (Vitamin D3) [Vitamin D3] 10,000 unit PO WEEKLY 04/15/17 Fluticasone Prop 0.05% Nasal [Flonase -] 1 - 2 spray NS BID 04/15/17 Levetiracetam [Keppra -] 750 mg PO BID 04/15/17 Levothyroxine [Synthroid -] 25 mcg PO DAILY 04/15/17 Linaclotide [Linzess] 290 mcg PO DAILY 04/15/17 Losartan/Hydrochlorothiazide [Losartan-Hctz 100-25 mg Tab] 1 each PO DAILY 04/15 Montelukast Na [Singulair -] 10 mg PO HS 04/15/17 Pantoprazole Sodium [Protonix -] 40 mg PO DAILY 04/15/17 Warfarin Sodium [Coumadin] 2 mg PO ASDIR 04/15/17 Salmeterol/Fluticasone [Advair 250Mcg/50Mcg] 1 inh PO BID 05/02/17 Nitroglycerin 0.4 mg SL PRN 06/13/17 Simvastatin 40 mg PO HS 06/13/17 Family Disease History - Family Disease History Family Disease History: Diabetes: Father ( of PR), Mother ( of uterine cancer), Heart Disease: Father, Respiratory: Sister (asthma) Review of Systems - Review of Systems Cardiovascular: reports: Chest Pain, Shortness of Breath Vital Signs: Vital Signs Temperature 97.6 F 06/13/17 08:12 Pulse Rate 85 06/13/17 12:45 Respiratory Rate 20 06/13/17 12:45 Blood Pressure 113/64 06/13/17 12:45 O2 Sat by Pulse Oximetry (%) 99 06/13/17 12:45 Constitutional: Yes: No Distress, Calm Neck: Yes: Supple Respiratory: Yes: Regular, Diminished Gastrointestinal: Yes: Normal Bowel Sounds, Soft, Abdomen, Obese Cardiovascular: Yes: Regular Rate and Rhythm JVD: No Carotid Bruit: No Heart Sounds: Yes: S1, S2 Murmur: Yes: Systolic Murmur, Grade 1 Edema: No - Other Data Labs, Other Data: CBC, BMP 06/13/17 08:45 06/13/17 08:40 INR, PTT INR 2.81 (0.82-1.09) H 06/13/17 08:45 Troponin, BNP 06/13/17 08:40 Troponin I < 0.02 Troponin, BNP 06/13/17 08:40 Troponin I < 0.02 SR @ 87 PVC Imaging - Results Chest X-ray: Report Reviewed (NAD) Ultrasound: Report Reviewed (Negative DVT) Problem List - Problems (1) Dyspnea and respiratory abnormalities Code(s): R06.00 - DYSPNEA, UNSPECIFIED R06.89 - OTHER ABNORMALITIES OF BREATHING (2) Hypothyroidism Code(s): E03.9 - HYPOTHYROIDISM, UNSPECIFIED Qualifiers: Hypothyroidism type: unspecified Qualified Code(s): E03.9 - Hypothyroidism, unspecified (3) Type 2 diabetes mellitus Code(s): E11.9 - TYPE 2 DIABETES MELLITUS WITHOUT COMPLICATIONS Qualifiers: Diabetes mellitus complication status: without complication Diabetes mellitus group home insulin use: without group home use Qualified Code(s): E11.9 - Type 2 diabetes mellitus without complications (4) DVT (deep venous thrombosis) Code(s): I82.409 - ACUTE EMBOLISM AND THOMBOS UNSP DEEP VN UNSP LOWER EXTREMITY Qualifiers: DVT location: lower extremity Chronicity: chronic (5) Hyperlipemia Code(s): E78.5 - HYPERLIPIDEMIA, UNSPECIFIED Qualifiers: Hyperlipidemia type: pure hypercholesterolemia Qualified Code(s): E78.00 - Pure hypercholesterolemia, unspecified; E78.0 - Pure hypercholesterolemia (6) Hypertension Code(s): I10 - ESSENTIAL (PRIMARY) HYPERTENSION Qualifiers: Hypertension type: essential hypertension Qualified Code(s): I10 - Essential (primary) hypertension (7) Seizure disorder Code(s): G40.909 - EPILEPSY, UNSP, NOT INTRACTABLE, WITHOUT STATUS EPILEPTICUS (8) Chest pain Code(s): R07.9 - CHEST PAIN, UNSPECIFIED Qualifiers: Chest pain type: other chest pain Qualified Code(s): R07.89 - Other chest pain; R07.8 - Other chest pain (9) Diastolic dysfunction without heart failure Code(s): I51.9 - HEART DISEASE, UNSPECIFIED (10) Moderate aortic stenosis Code(s): I35.0 - NONRHEUMATIC AORTIC (VALVE) STENOSIS Assessment/Plan 04/07/2017 Echo: Normal LV size and fxn, mild MARLY, mod , mild MR, TR RVSP 40- 50 mmHg 1. Chest pain syndrome r/o CAD, CTA negative for PE 2. 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 HTN 4. Hyperlipidemia 5. Seizure d/o 6. Hypothyroidism 7. Leukocytosis improving 8. Diastolic dysfunction with mod , pulm HTN 9. Type 2 DM 10. Asthma P:1. Ruling out for [place], check TSH, lipid panel, myoview in AM 2. BD, O2 as needed, Singulair 3. Continue Hyzaar 100/25 qd and Lipitor 40 qhs 4. Coumadin per INR with GI protection 5. Thank you for consultative opportunity
[2017-06-13] MEDS ORDERED: LOSARTAN 50MG/HCTZ 12.5MG 1 TAB (FP) PO ONE (13:20)
--- NOTE | 2017-06-13 13:38 | HP ---
CHIEF COMPLAINT: chest pain since 8 am PCP: not on staff HISTORY OF PRESENT ILLNESS: According to pt through a loom inspector #[id number] pt is c/o chest pain midsternal since awaking this morning. She has been under the care of a PMD in [place] and has had chest pain workups in the past. This 76 yo F history DVT on coumadin per INR, CAD, HTN, TIA, chol, asthma, seizure, diastolic dysfunction with moderate presented with chest pain, reports left arm numbness, possible exertional component (unclear history), SOB, denies near or true syncope, palpitations, orthopnea, PND or LE edema. ER course was notable for: (1) EKG: no st t wave changes. (2) CTA neg for PE (3) duplex LE neg for DVT 4. 2 trops negative Recent Travel: none PAST MEDICAL HISTORY: asthma, DVT (on coumadin), recent PNA, arthritis, PAST SURGICAL HISTORY: unknown Social History: Smoking:denies Alcohol:denies Drugs: denies Family History: Allergies Penicillins Allergy (Verified 06/13/17 08:22) Swelling HOME MEDICATIONS: Home Medications Medication Instructions Recorded Albuterol Sulfate Inhaler - 1 - 2 inh PO Q4H 04/15/17 [Ventolin Hfa Inhaler -] Budesonide/Formeterol Fumarate 2 inh PO BID 04/15/17 [SYMBICORT 160/4.5mcg -] Cholecalciferol (Vitamin D3) 10,000 unit PO WEEKLY 04/15/17 [Vitamin D3] Fluticasone Prop 0.05% Nasal 1 - 2 spray NS BID 04/15/17 [Flonase -] Levetiracetam [Keppra -] 750 mg PO BID 04/15/17 Levothyroxine [Synthroid -] 25 mcg PO DAILY 04/15/17 Linaclotide [Linzess] 290 mcg PO DAILY 04/15/17 Losartan/Hydrochlorothiazide 1 each PO DAILY 04/15/17 [Losartan-Hctz 100-25 mg Tab] Montelukast Na [Singulair -] 10 mg PO HS 04/15/17 Pantoprazole Sodium [Protonix -] 40 mg PO DAILY 04/15/17 Warfarin Sodium [Coumadin] 2 mg PO ASDIR 04/15/17 Salmeterol/Fluticasone [Advair 1 inh PO BID 05/02/17 250Mcg/50Mcg] Nitroglycerin 0.4 mg SL PRN 06/13/17 Simvastatin 40 mg PO HS 06/13/17 REVIEW OF SYSTEMS CONSTITUTIONAL: Absent: fever, chills, diaphoresis, generalized weakness, malaise, loss of appetite, weight change HEENT: Absent: rhinorrhea, nasal congestion, throat pain, throat swelling, difficulty swallowing, mouth swelling, ear pain, eye pain, visual changes CARDIOVASCULAR: Absent: chest pain, syncope, palpitations, irregular heart rate, lightheadedness , peripheral edema RESPIRATORY: Absent: cough, shortness of breath, dyspnea with exertion, orthopnea, wheezing, stridor, hemoptysis GASTROINTESTINAL: Absent: abdominal pain, abdominal distension, nausea, vomiting, diarrhea, constipation, melena, hematochezia GENITOURINARY: Absent: dysuria, frequency, urgency, hesitancy, hematuria, flank pain, genital pain MUSCULOSKELETAL: Absent: myalgia, arthralgia, joint swelling, back pain, neck pain SKIN: Absent: rash, itching, pallor HEMATOLOGIC/IMMUNOLOGIC: Absent: easy bleeding, easy bruising, lymphadenopathy, frequent infections ENDOCRINE: Absent: unexplained weight gain, unexplained weight loss, heat intolerance, cold intolerance NEUROLOGIC: Absent: headache, focal weakness or paresthesias, dizziness, unsteady gait, seizure, mental status changes, bladder or bowel incontinence PSYCHIATRIC: Absent: anxiety, depression, suicidal or homicidal ideation, hallucinations. PHYSICAL EXAMINATION Vital Signs - 24 hr 06/13/17 06/13/17 08:12 12:45 Temperature 97.6 F Pulse Rate 74 Pulse Rate [ 85 Radial] Respiratory 18 20 Rate Blood Pressure 121/61 Blood Pressure 113/64 [Left Arm] O2 Sat by Pulse 100 99 Oximetry (%) GENERAL: Awake, alert, and fully oriented only speaks Nepali. in no acute distress. HEAD: Normal with no signs of trauma. LUNGS: Breath sounds equal, clear to auscultation bilaterally. No wheezes, and no crackles. No accessory muscle use. HEART: Regular rate and rhythm, normal S1 and S2 without murmur, rub or gallop. ABDOMEN: Soft, nontender, not distended, normoactive bowel sounds, no guarding, no rebound, no masses. No hepatomegaly or splenomegaly. MUSCULOSKELETAL: Normal range of motion at all joints. No bony deformities or tenderness. No CVA tenderness. UPPER EXTREMITIES: 2+ pulses, warm, well-perfused. No cyanosis. No clubbing. No peripheral edema. LOWER EXTREMITIES: 2+ pulses, warm, well-perfused. No calf tenderness. No peripheral edema. NEUROLOGICAL: Cranial nerves II-XII intact. Normal speech. Normal gait. PSYCHIATRIC: Cooperative. Good eye contact. Appropriate mood and affect. SKIN: Warm, dry, normal turgor, no rashes or lesions noted, normal capillary refill. Laboratory Results - last 24 hr 06/13/17 06/13/17 06/13/17 08:40 08:45 08:45 WBC 10.4 H RBC 4.45 Hgb 12.7 Hct 39.2 MCV 88.2 MCH 28.7 MCHC 32.5 RDW 15.8 H Plt Count 238 D MPV 8.6 D Neutrophils % 69.6 Lymphocytes % 19.5 D Monocytes % 7.8 D Eosinophils % 2.3 D Basophils % 0.8 PT with INR 31.60 H INR 2.81 H Sodium 141 Potassium 4.1 Chloride 108 H Carbon Dioxide 28 Anion Gap 5 L BUN 14 Creatinine 0.7 D Creat Clearance w eGFR > 60 Random Glucose 96 Calcium 8.8 Magnesium 2.0 Total Bilirubin 0.7 AST 18 D ALT 21 D Alkaline Phosphatase 69 Creatine Kinase 84 Troponin I < 0.02 Total Protein 6.1 L Albumin 3.3 L ASSESSMENT/PLAN: Pt being admitted for observation for chest pain work up under the cardiology care. Pt will require telemetry obs. Pt aware of admission. Orders placed. Problem List - Problem (1) Chest pain Code(s): R07.9 - CHEST PAIN, UNSPECIFIED Qualifiers: Chest pain type: other chest pain Qualified Code(s): R07.89 - Other chest pain; R07.8 - Other chest pain (2) DVT prophylaxis Code(s): [id number] - (3) Hypertension Code(s): I10 - ESSENTIAL (PRIMARY) HYPERTENSION Qualifiers: Hypertension type: essential hypertension Qualified Code(s): I10 - Essential (primary) hypertension (4) TIA (transient ischemic attack) Code(s): G45.9 - TRANSIENT CEREBRAL ISCHEMIC ATTACK, UNSPECIFIED Qualifiers: Transient cerebral ischemia type: unspecified Qualified Code(s): G45.9 - Transient cerebral ischemic attack, unspecified (5) Type 2 diabetes mellitus Code(s): E11.9 - TYPE 2 DIABETES MELLITUS WITHOUT COMPLICATIONS Qualifiers: Diabetes mellitus complication status: without complication Diabetes mellitus terminal manager insulin use: without senior living use Qualified Code(s): E11.9 - Type 2 diabetes mellitus without complications (6) Hyperlipemia Code(s): E78.5 - HYPERLIPIDEMIA, UNSPECIFIED Qualifiers: Hyperlipidemia type: pure hypercholesterolemia Qualified Code(s): E78.00 - Pure hypercholesterolemia, unspecified; E78.0 - Pure hypercholesterolemia Visit type - Emergency Visit Emergency Visit: Yes Care time: The patient presented to the Emergency Department on the above date and was hospitalized for further evaluation of their emergent condition. - New Patient This patient is new to me today: Yes Date on this admission: 06/13/17 - Critical Care Critical Care patient: No
[2017-06-13] MEDS ORDERED: ALBUTEROL SO4 0.083% IH SOL 2.5 MG/3 ML VIAL.NEB. NEB PRN (13:43)
[2017-06-13] MEDS ORDERED: FLU VACCINE QUAD 60 MCG/0.5 ML (MDV 17-18) IM ONE (14:29)
[2017-06-13] MEDS: WARFARIN NA 2 MG TABLET (UD) PO SCH (17:39)
[2017-06-13] MEDS: levETIRAcetam 250 MG TABLET (FP) PO SCH (21:25)
[2017-06-13] MEDS: BUDESONIDE/FORMETEROL FUMARATE 160/4.5 mcg INHALER IH SCH (21:26)
[2017-06-13] MEDS: MONTELUKAST NA 10 MG TABLET PO SCH (21:26)
[2017-06-13] MEDS: FLUTICASONE PROP 0.05% 16 GM NASAL SPRAY NS SCH (21:26)
[2017-06-13] MEDS: ATORVASTATIN CA 40 MG TABLET (FP) PO SCH (21:26)
[2017-06-14] MEDS: LEVOTHYROXINE NA 25 MCG TABLET (FP) PO SCH (06:18)
[2017-06-14 07:24] LABS: BASOPHIL 0.5 % (0-2.0); EOSINOPHIL 2.9 % (0-4.5); MCH 28.7 pg (25.7-33.7); MCHC 31.9 g/dl (32.0-36.0); MEAN CELL VOLUME 89.9 fl (80-96); NEUTROPHILS 60.1 % (42.8-82.8); PLATELET COUNT 221 K/MM3 (134-434); RDW 15.6 % (11.6-15.6); WHITE BLOOD COUNT 8.5 K/mm3 (4.0-10.0)
[2017-06-14 07:34] LABS: INR 2.96 (0.82-1.09); PROTHROMBIN TIME (PATIENT) 33.3 SEC (9.98-11.88)
[2017-06-14 07:37] LABS: ACTIVATED PTT 43.7 SECONDS (26.9-34.4)
[2017-06-14 07:57] LABS: ANION GAP 9 (8-16); CALCIUM 8.8 mg/dL (8.5-10.1); CO2 30 mmol/L (21-32); GLUCOSE,RANDOM 98 mg/dL (74-106)
[2017-06-14 07:59] LABS: CHOLESTEROL 111 mg/dL (50-200); CREATININE 0.8 mg/dL (0.55-1.02)
[2017-06-14 08:07] LABS: ALBUMIN 3.1 g/dl (3.4-5.0); ALK PHOS 74 U/L (45-117); ANION GAP 11 (8-16); BILIRUBIN,TOTAL 0.9 mg/dL (0.2-1.0); CALCIUM 8.5 mg/dL (8.5-10.1); CO2 28 mmol/L (21-32); CREATININE 0.8 mg/dL (0.55-1.02); GLUCOSE,RANDOM 96 mg/dL (74-106); MAGNESIUM 2.4 mg/dL (1.8-2.4); PHOSPHOROUS 4.5 mg/dL (2.5-4.9); SGOT/AST 14 U/L (15-37); SGPT/ALT 19 U/L (12-78)
[2017-06-14 08:27] LABS: CPK 61 IU/L (26-192); THYROID STIMULATING HORMONE 2.98 uIU/ml (0.358-3.74); TROPONIN I < 0.02 ng/ml (0.00-0.05)
[2017-06-14] MEDS ORDERED: PATIENT'S OWN MEDICATION (NON-FORMULARY) (Linaclotide [Linzess] 290 MCG) PO SCH (10:00)
--- NOTE | 2017-06-14 14:02 | EKG ---
Test Reason : Blood Pressure : / mmHG Vent. Rate : 087 BPM Atrial Rate : 087 BPM P-R Int : 122 ms QRS Dur : 076 ms QT Int : 366 ms P-R-T Axes : 040 -04 028 degrees QTc Int : 440 ms SINUS RHYTHM WITH SINUS ARRHYTHMIA WITH OCCASIONAL PREMATURE VENTRICULAR COMPLEXES OTHERWISE NORMAL ECG WHEN COMPARED WITH ECG OF 02-MAY-2017 10:40, PREMATURE VENTRICULAR COMPLEXES ARE NOW PRESENT PREMATURE SUPRAVENTRICULAR COMPLEXES ARE NO LONGER PRESENT Confirmed by CASANDRA GUTIÉRREZ, SELENA ([id number]) on 06/14/2017 2:01:30 PM Referred By: Confirmed By:SELENA GUAJARDO MD
--- NOTE | 2017-06-14 14:24 | PN ---
Progress Note, Physician History of Present Illness: Denies further chest pain or dyspnea. - Current Medication List Current Medications: Active Medications Albuterol Sulfate (Ventolin Hfa Inhaler -) 1 puff IH Q4H LUIZA Albuterol Sulfate (Ventolin 0.083% Nebulizer Soln -) 1 amp NEB Q6H PRN PRN Reason: SHORT OF BREATH/WHEEZING Atorvastatin Calcium (Lipitor -) 40 mg PO HS [facility] Last Admin: 06/13/17 21:26 Dose: 40 mg Budesonide/Formoterol Fumarate (Symbicort 160/4.5mcg -) 2 puff IH BID [facility] Last Admin: 06/13/17 21:26 Dose: 2 puff Fluticasone Propionate (Flonase -) 1 spray NS BID [facility] Last Admin: 06/13/17 21:26 Dose: 1 spray Levetiracetam (Keppra -) 750 mg PO BID [facility] Last Admin: 06/13/17 21:25 Dose: 750 mg Levothyroxine Sodium (Synthroid -) 25 mcg PO AM [facility] Last Admin: 06/14/17 06:18 Dose: 25 mcg Montelukast Sodium (Singulair -) 10 mg PO HS [facility] Last Admin: 06/13/17 21:26 Dose: 10 mg Non-Formulary Medication (Linaclotide [Linzess]) 290 mcg PO DAILY [facility] Pantoprazole Sodium (Protonix -) 40 mg PO DAILY [facility] Warfarin Sodium (Coumadin -) 2 mg PO DAILY@1800 [facility] Last Admin: 06/13/17 17:39 Dose: 2 mg - Objective Vital Signs: Vital Signs Temperature 98.2 F 06/14/17 05:35 Pulse Rate 90 06/14/17 05:35 Respiratory Rate 20 06/14/17 05:35 Blood Pressure 119/61 06/14/17 05:35 O2 Sat by Pulse Oximetry (%) 97 06/14/17 04:00 Constitutional: Yes: No Distress, Calm Neck: Yes: Supple Cardiovascular: Yes: Regular Rate and Rhythm Respiratory: Yes: Regular, Diminished Gastrointestinal: Yes: Normal Bowel Sounds, Soft, Abdomen, Obese Edema: No Labs: CBC, BMP 06/14/17 05:35 06/14/17 05:35 INR, PTT INR 2.96 (0.82-1.09) H 06/14/17 05:35 Problem List - Problems (1) Dyspnea and respiratory abnormalities Code(s): R06.00 - DYSPNEA, UNSPECIFIED R06.89 - OTHER ABNORMALITIES OF BREATHING (2) Hypothyroidism Code(s): E03.9 - HYPOTHYROIDISM, UNSPECIFIED Qualifiers: Hypothyroidism type: unspecified Qualified Code(s): E03.9 - Hypothyroidism, unspecified (3) Type 2 diabetes mellitus Code(s): E11.9 - TYPE 2 DIABETES MELLITUS WITHOUT COMPLICATIONS Qualifiers: Diabetes mellitus complication status: without complication Diabetes mellitus chcf insulin use: without chcf use Qualified Code(s): E11.9 - Type 2 diabetes mellitus without complications (4) DVT (deep venous thrombosis) Code(s): I82.409 - ACUTE EMBOLISM AND THOMBOS UNSP DEEP VN UNSP LOWER EXTREMITY Qualifiers: DVT location: lower extremity Chronicity: chronic (5) Hyperlipemia Code(s): E78.5 - HYPERLIPIDEMIA, UNSPECIFIED Qualifiers: Hyperlipidemia type: pure hypercholesterolemia Qualified Code(s): E78.00 - Pure hypercholesterolemia, unspecified; E78.0 - Pure hypercholesterolemia (6) Hypertension Code(s): I10 - ESSENTIAL (PRIMARY) HYPERTENSION Qualifiers: Hypertension type: essential hypertension Qualified Code(s): I10 - Essential (primary) hypertension (7) Seizure disorder Code(s): G40.909 - EPILEPSY, UNSP, NOT INTRACTABLE, WITHOUT STATUS EPILEPTICUS (8) Chest pain Code(s): R07.9 - CHEST PAIN, UNSPECIFIED Qualifiers: Chest pain type: other chest pain Qualified Code(s): R07.89 - Other chest pain; R07.8 - Other chest pain (9) Diastolic dysfunction without heart failure Code(s): I51.9 - HEART DISEASE, UNSPECIFIED (10) Moderate aortic stenosis Code(s): I35.0 - NONRHEUMATIC AORTIC (VALVE) STENOSIS Assessment/Plan 04/07/2017 Echo: Normal LV size and fxn, mild MARLY, mod , mild MR, TR RVSP 40- 50 mmHg 1. Chest pain syndrome r/o CAD, CTA negative for PE 2. 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 HTN 4. Hyperlipidemia 5. Seizure d/o 6. Hypothyroidism 7. Leukocytosis improving 8. Diastolic dysfunction with mod , pulm HTN 9. Type 2 DM 10. Asthma P:1. Ruled out for [place], f/u myoview results 2. BD, O2 as needed, Singulair 3. Resume Hyzaar 50/12.5 qd and Lipitor 40 qhs 4. Coumadin per INR with GI protection 5. Further recommendations pending above study results.
[2017-06-14] MEDS ORDERED: PT OWN MED DRAWER 7, Y5N ONE ×2 (14:41→21:31)
[2017-06-14] MEDS: FLUTICASONE PROP 0.05% 16 GM NASAL SPRAY NS SCH ×2 (14:43→21:33)
[2017-06-14] MEDS: BUDESONIDE/FORMETEROL FUMARATE 160/4.5 mcg INHALER IH SCH ×2 (14:43→21:34)
[2017-06-14] MEDS: PANTOPRAZOLE 40 MG TABLET (FP) PO SCH (14:44)
[2017-06-14] MEDS: levETIRAcetam 250 MG TABLET (FP) PO SCH ×2 (14:44→21:33)
--- NOTE | 2017-06-14 16:10 | PN ---
Physical Exam: SUBJECTIVE: Patient seen and examined at the bedside. She denies any chest pain or shortness of breath. Has some intermittent left lower rib pain painful with palpation. She denies any recent trauma. OBJECTIVE: Vital Signs Period Temp Pulse Resp BP Sys/Sexton Pulse Ox Last 24 Hr 98.1 F-98.8 F 76-102 18-20 105-135/60-76 95-97 GENERAL: The patient is awake, alert, and fully oriented, in no acute distress - Croatian speaking HEAD: Normal with no signs of trauma. EYES: PERRL, extraocular movements intact, sclera anicteric, conjunctiva clear. No ptosis. ENT: Ears normal, nares patent, oropharynx clear without exudates, moist mucous membranes. NECK: Trachea midline, full range of motion, supple. LUNGS: Breath sounds equal, clear to auscultation bilaterally, no wheezes, no crackles, no accessory muscle use. HEART: Regular rate and rhythm, S1, S2 without murmur, rub or gallop. ABDOMEN: Soft, nontender, nondistended, normoactive bowel sounds, no guarding, no rebound, no hepatosplenomegaly, no masses. EXTREMITIES: no edema. NEUROLOGICAL: Normal speech, steady gait PSYCH: Normal mood, normal affect. SKIN: Warm, dry, normal turgor, no rashes or lesions noted Laboratory Results - last 24 hr 06/14/17 06/14/17 06/14/17 05:35 05:35 05:35 WBC 8.5 RBC 4.25 Hgb 12.2 Hct 38.2 MCV 89.9 MCH 28.7 MCHC 31.9 L RDW 15.6 Plt Count 221 MPV 9.0 Neutrophils % 60.1 Lymphocytes % 29.3 D Monocytes % 7.2 Eosinophils % 2.9 Basophils % 0.5 PT with INR INR PTT (Actin FS) Sodium 142 143 Potassium 3.8 3.9 Chloride 103 104 Carbon Dioxide 28 30 Anion Gap 11 9 BUN 13 14 Creatinine 0.8 0.8 Creat Clearance w eGFR > 60 POC Glucometer Random Glucose 96 98 Calcium 8.5 8.8 Phosphorus 4.5 D Magnesium 2.4 Total Bilirubin 0.9 D AST 14 L D ALT 19 Alkaline Phosphatase 74 Creatine Kinase 61 Troponin I < 0.02 Total Protein 6.0 L Albumin 3.1 L Triglycerides 112 Cholesterol 111 D Total LDL Cholesterol 52 HDL Cholesterol 44 TSH 2.98 D 06/14/17 06/14/17 06/14/17 05:35 05:35 06:20 WBC RBC Hgb Hct MCV MCH MCHC RDW Plt Count MPV Neutrophils % Lymphocytes % Monocytes % Eosinophils % Basophils % PT with INR 33.30 H INR 2.96 H PTT (Actin FS) 43.7 H Sodium Potassium Chloride Carbon Dioxide Anion Gap BUN Creatinine Creat Clearance w eGFR POC Glucometer 98 Random Glucose Calcium Phosphorus Magnesium Total Bilirubin AST ALT Alkaline Phosphatase Creatine Kinase Cancelled Troponin I Cancelled Total Protein Albumin Triglycerides Cholesterol Total LDL Cholesterol HDL Cholesterol TSH Cancelled 06/14/17 13:40 WBC RBC Hgb Hct MCV MCH MCHC RDW Plt Count MPV Neutrophils % Lymphocytes % Monocytes % Eosinophils % Basophils % PT with INR INR PTT (Actin FS) Sodium Potassium Chloride Carbon Dioxide Anion Gap BUN Creatinine Creat Clearance w eGFR POC Glucometer Random Glucose Calcium Phosphorus Magnesium Total Bilirubin AST ALT Alkaline Phosphatase Creatine Kinase Troponin I < 0.02 Total Protein Albumin Triglycerides Cholesterol Total LDL Cholesterol HDL Cholesterol TSH Active Medications Generic Name Dose Route Start Last Admin Trade Name Freq PRN Reason Stop Dose Admin Albuterol Sulfate 1 puff 06/13/17 12:45 Ventolin Hfa Inhaler - IH Q4H LUIZA Albuterol Sulfate 1 amp 06/13/17 13:43 Ventolin 0.083% Nebulizer Soln - NEB Q6H PRN SHORT OF BREATH/WHEEZING Atorvastatin Calcium 40 mg 06/13/17 22:00 06/13/17 21:26 Lipitor - PO 40 mg HS LUIZA Administration Budesonide/Formoterol Fumarate 2 puff 06/13/17 22:00 06/14/17 14:43 Symbicort 160/4.5mcg - IH 2 puff BID LUIZA Administration Fluticasone Propionate 1 spray 06/13/17 22:00 06/14/17 14:43 Flonase - NS 1 spray BID LUIZA Administration Levetiracetam 750 mg 06/13/17 22:00 06/14/17 14:44 Keppra - PO 750 mg BID LUIZA Administration Levothyroxine Sodium 25 mcg 06/14/17 07:00 06/14/17 06:18 Synthroid - PO 25 mcg AM LUIZA Administration Montelukast Sodium 10 mg 06/13/17 22:00 06/13/17 21:26 Singulair - PO 10 mg HS LUIZA Administration Non-Formulary Medication 290 mcg 06/14/17 10:00 Linaclotide [Linzess] PO DAILY LUIZA Pantoprazole Sodium 40 mg 06/14/17 10:00 06/14/17 14:44 Protonix - PO 40 mg DAILY LUIZA Administration Warfarin Sodium 2 mg 06/13/17 18:00 06/13/17 17:39 Coumadin - PO 2 mg DAILY@1800 LUIZA Administration ASSESSMENT/PLAN: Patient is a 76 year old female with a significant past medical history of hypertension, hyperlipidemia, asthma, 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 Patient presented to the ER on 2016 with chest pain and shortness of breath. 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 Seizure precautions F.E.N. Fluids: tolerating PO Electrolytes: monitor bmp Nutrition: diabetic diet Prophylaxis: DVT: On Coumadin per INR GI: Protonix while on steroids Disposition: Requires inpatient hospitalization. Full code. Visit type - Emergency Visit Emergency Visit: Yes ED Registration Date: 06/13/17 Care time: The patient presented to the Emergency Department on the above date and was hospitalized for further evaluation of their emergent condition. - New Patient This patient is new to me today: Yes Date on this admission: 06/14/17 - Critical Care Critical Care patient: No - Discharge Referral Referred to [facility] Med P.C.: No
[2017-06-14] MEDS: WARFARIN NA 2 MG TABLET (UD) PO SCH (18:21)
[2017-06-14] MEDS ORDERED: WARFARIN NA 1 MG TABLET (FP) PO SCH (18:30)
[2017-06-14] MEDS: MONTELUKAST NA 10 MG TABLET PO SCH (21:33)
[2017-06-14] MEDS: ATORVASTATIN CA 40 MG TABLET (FP) PO SCH (21:33)
[2017-06-15] MEDS: LEVOTHYROXINE NA 25 MCG TABLET (FP) PO SCH (06:49)
[2017-06-15 08:05] LABS: INR 2.75 (0.82-1.09); PROTHROMBIN TIME (PATIENT) 30.9 SEC (9.98-11.88)
--- NOTE | 2017-06-15 09:17 | DS ---
Physical Exam: SUBJECTIVE: Patient seen and examined at the bedside. She denies any chest pain or shortness of breath. OBJECTIVE: Nuclear myocardial perfusion imaging shows no evidence of ischemia. LVEF 78%, cleared by cardiology for d/c Vital Signs Period Temp Pulse Resp BP Sys/Sexton Pulse Ox Last 24 Hr 98 F-98.8 F 79-110 18-20 103-137/47-76 95-99 PHYSICAL EXAM GENERAL: The patient is awake, alert, and fully oriented, in no acute distress - Emirati speaking HEAD: Normal with no signs of trauma. EYES: PERRL, extraocular movements intact, sclera anicteric, conjunctiva clear. No ptosis. ENT: Ears normal, nares patent, oropharynx clear without exudates, moist mucous membranes. NECK: Trachea midline, full range of motion, supple. LUNGS: Breath sounds equal, clear to auscultation bilaterally, no wheezes, no crackles, no accessory muscle use. HEART: Regular rate and rhythm, S1, S2 without murmur, rub or gallop. ABDOMEN: Soft, nontender, nondistended, normoactive bowel sounds, no guarding, no rebound, no hepatosplenomegaly, no masses. EXTREMITIES: no edema. NEUROLOGICAL: Normal speech, steady gait PSYCH: Normal mood, normal affect. SKIN: Warm, dry, normal turgor, no rashes or lesions noted LABS Laboratory Results - last 24 hr 06/14/17 06/14/17 06/15/17 13:40 17:36 05:35 PT with INR 30.90 H INR 2.75 H POC Glucometer 89 Troponin I < 0.02 06/15/17 05:48 PT with INR INR POC Glucometer 101 Troponin I HOSPITAL COURSE: Date of Admission:06/13/17 Date of Discharge: 06/15/17 ASSESSMENT/PLAN: Patient is a 76 year old female with a significant past medical history of hypertension, hyperlipidemia, asthma, 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 Patient presented to the ER on 2016 with chest pain and shortness of breath. Hematology: History of recurrent DVTs on Coumadin - chronic Assessment/Plan: Patient alternates between 1mg to 2mg of Coumadin at home INR 2.75, continue Coumadin home dose Cardiology: Shortness of breath on admission/chest pain - resolved oxygen dependence @ home but intermittently No further chest pain or shortness of breath, tolerating room air Ruled out for [place] as per machinist instructor, cardiology cleared for discharge Pre and post during hospitalization shows no decrease on oxygen with ambulation , tolerating room air Trops negative x 3 Patient with many risk factors Follow up with her private machinist instructor within one week after discharge Neurology: Seizure Disorder - chronic Assessment/Plan: On Keppra 750mg BID Last seizure on 08/2016 as per pt. Seizure precautions Disposition: Patient's PCP is in [facility]. She is in agreement to follow up with her PCP. Assigned a PCP to her close to [place] where she stays with her daughter. Full code. Minutes to complete discharge: 60 Discharge Summary Reason For Visit: CHEST PAIN Current Active Problems Chest pain (Acute) Diastolic dysfunction without heart failure (Acute) Moderate aortic stenosis (Acute) Condition: Stable - Instructions Referrals: Silvia Fernando MD [Staff Physician] - Morales Jackson MD [Primary Care Provider] - Disposition: HOME - Home Medications Comprehensive Discharge Medication List: Ambulatory Orders Albuterol Sulfate Inhaler - [Ventolin Hfa Inhaler -] 1 - 2 inh PO Q4H 04/15/17 Budesonide/Formeterol Fumarate [SYMBICORT 160/4.5mcg -] 2 inh PO BID 04/15/17 Cholecalciferol (Vitamin D3) [Vitamin D3] 10,000 unit PO WEEKLY 04/15/17 Fluticasone Prop 0.05% Nasal [Flonase -] 1 - 2 spray NS BID 04/15/17 Levetiracetam [Keppra -] 750 mg PO BID 04/15/17 Levothyroxine [Synthroid -] 25 mcg PO DAILY 04/15/17 Linaclotide [Linzess] 290 mcg PO DAILY 04/15/17 Losartan/Hydrochlorothiazide [Losartan-Hctz 100-25 mg Tab] 1 each PO DAILY 04/15 Montelukast Na [Singulair -] 10 mg PO HS 04/15/17 Pantoprazole Sodium [Protonix -] 40 mg PO DAILY 04/15/17 Warfarin Sodium [Coumadin] 2 mg PO ASDIR 04/15/17 Salmeterol/Fluticasone [Advair 250Mcg/50Mcg] 1 inh PO BID 05/02/17 Nitroglycerin 0.4 mg SL PRN 06/13/17 Simvastatin 40 mg PO HS 06/13/17 This patient is new to me today: No Emergency Visit: Yes ED Registration Date: 06/13/17 Care time: The patient presented to the Emergency Department on the above date and was hospitalized for further evaluation of their emergent condition. Critical Care patient: No - Discharge Referral Referred to [facility] Med P.C.: Yes Physician Referral: Silvia Fernando MD ([facility])
[2017-06-15] MEDS: PANTOPRAZOLE 40 MG TABLET (FP) PO SCH (09:46)
[2017-06-15] MEDS: levETIRAcetam 250 MG TABLET (FP) PO SCH (09:46)
[2017-06-15] MEDS: BUDESONIDE/FORMETEROL FUMARATE 160/4.5 mcg INHALER IH SCH (09:47)
[2017-06-15] MEDS: FLUTICASONE PROP 0.05% 16 GM NASAL SPRAY NS SCH (09:47)
[2017-06-15] MEDS ORDERED: HYDROCHLOROTHIAZIDE 25 MG TABLET (FP) PO SCH (10:00)
[2017-06-15] MEDS ORDERED: LOSARTAN POTASSIUM 50 MG TABLET (FP) PO SCH (10:00)
[2017-06-15] MEDS ORDERED: PATIENT'S OWN MEDICATION (NON-FORMULARY) (Losartan/Hydrochlorothiazide [Losartan-Hctz 100- PO SCH (10:00)
--- NOTE | 2017-06-15 10:49 | PN ---
Progress Note, Physician Chief Complaint: Events noted. Not in distress Nuclear myocardial perfusion imaging shows no evidence of ischemia. LVEF 78% History of Present Illness: Patient was seen and examined. Awake and alert. Chart was reviewed Denies chest pain, SOB or palpitations - Current Medication List Current Medications: Active Medications Albuterol Sulfate (Ventolin Hfa Inhaler -) 1 puff IH Q4H LUIZA Albuterol Sulfate (Ventolin 0.083% Nebulizer Soln -) 1 amp NEB Q6H PRN PRN Reason: SHORT OF BREATH/WHEEZING Atorvastatin Calcium (Lipitor -) 40 mg PO HS [facility] Last Admin: 06/14/17 21:33 Dose: 40 mg Budesonide/Formoterol Fumarate (Symbicort 160/4.5mcg -) 2 puff IH BID [facility] Last Admin: 06/15/17 09:47 Dose: 2 puff Fluticasone Propionate (Flonase -) 1 spray NS BID [facility] Last Admin: 06/15/17 09:47 Dose: 1 spray Hydrochlorothiazide (Hctz -) 25 mg PO DAILY [facility] Last Admin: 06/15/17 09:47 Dose: 25 mg Levetiracetam (Keppra -) 750 mg PO BID [facility] Last Admin: 06/15/17 09:46 Dose: 750 mg Levothyroxine Sodium (Synthroid -) 25 mcg PO AM [facility] Last Admin: 06/15/17 06:49 Dose: 25 mcg Losartan Potassium (Cozaar -) 100 mg PO DAILY [facility] Last Admin: 06/15/17 09:47 Dose: 100 mg Montelukast Sodium (Singulair -) 10 mg PO HS [facility] Last Admin: 06/14/17 21:33 Dose: 10 mg Non-Formulary Medication (Linaclotide [Linzess]) 290 mcg PO DAILY [facility] Pantoprazole Sodium (Protonix -) 40 mg PO DAILY [facility] Last Admin: 06/15/17 09:46 Dose: 40 mg Warfarin Sodium (Coumadin -) 1 mg PO DAILY@1800 [facility] Last Admin: 06/14/17 18:50 Dose: 1 mg - Objective Vital Signs: Vital Signs Temperature 98 F 06/15/17 02:00 Pulse Rate 85 06/15/17 06:00 Respiratory Rate 20 06/15/17 06:00 Blood Pressure 103/51 06/15/17 06:00 O2 Sat by Pulse Oximetry (%) 99 09/19/17 00:45 Neck: Yes: Supple Cardiovascular: Yes: Regular Rate and Rhythm, S1, S2 Respiratory: Yes: CTA Bilaterally Gastrointestinal: Yes: Normal Bowel Sounds, Soft. No: Tenderness Edema: No Additional Findings/Remarks: - Review of Systems Constitutional: denies: Chills, Fever Cardiovascular: denies: Chest Pain, Palpitations, Shortness of Breath Respiratory: denies: Cough, Hemoptysis, Orthopnea, PND, SOB, SOB on Exertion, Wheezing Gastrointestinal: denies: Abdominal Pain, Constipation, Diarrhea, Melena, Nausea , Rectal Bleeding, Vomiting Genitourinary: denies: Dysuria Musculoskeletal: denies: Back Pain. denies: Joint Pain Neurological: denies: Dizziness, Headache, Numbness, Seizure, Syncope, Weakness Labs: CBC, BMP 06/14/17 05:35 06/14/17 05:35 INR, PTT INR 2.75 (0.82-1.09) H 06/15/17 05:35 Laboratory Results - last 24 hr 06/14/17 06/14/17 06/15/17 13:40 17:36 05:35 PT with INR 30.90 H INR 2.75 H POC Glucometer 89 Troponin I < 0.02 Problem List - Problems (1) Chest pain Code(s): R07.9 - CHEST PAIN, UNSPECIFIED Qualifiers: Chest pain type: other chest pain Qualified Code(s): R07.89 - Other chest pain; R07.8 - Other chest pain (2) Diastolic dysfunction without heart failure Code(s): I51.9 - HEART DISEASE, UNSPECIFIED (3) Moderate aortic stenosis Code(s): I35.0 - NONRHEUMATIC AORTIC (VALVE) STENOSIS (4) Hypothyroidism Code(s): E03.9 - HYPOTHYROIDISM, UNSPECIFIED Qualifiers: Hypothyroidism type: unspecified Qualified Code(s): E03.9 - Hypothyroidism, unspecified (5) Hyperlipemia Code(s): E78.5 - HYPERLIPIDEMIA, UNSPECIFIED Qualifiers: Hyperlipidemia type: pure hypercholesterolemia Qualified Code(s): E78.00 - Pure hypercholesterolemia, unspecified; E78.0 - Pure hypercholesterolemia (6) Hypertension Code(s): I10 - ESSENTIAL (PRIMARY) HYPERTENSION Qualifiers: Hypertension type: essential hypertension Qualified Code(s): I10 - Essential (primary) hypertension (7) Seizure disorder Code(s): G40.909 - EPILEPSY, UNSP, NOT INTRACTABLE, WITHOUT STATUS EPILEPTICUS Assessment/Plan 1. Chest pain syndrome - normal MPI, CTA negative for PE 2. 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 HTN 4. Hyperlipidemia 5. Seizure disorder 6. Hypothyroidism 7. Leukocytosis improving 8. 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 Type 2 DM 10. Asthma PLAN: 1. Nuclear myocardial perfusion reviewed with patient 2. Bronchodilator 3. Continue Hyzaar 50/12.5 mg qd and Lipitor 40 mg qhs 4. Coumadin per INR with GI protection - explained the importance of INR monitoring with her PMD as outpatient Discharge planning Jarocho Veronica MD
[2017-06-15 14:58] VITALS: BP 122/63; PULSE 88; TEMP 98.9
== END 2017-06-15 17:22 | disposition home or self-care (01) ==
LOC: JER 08:07 → JERBED 13:17 → J4W 15:49
PROVIDERS: ADMIT Internal Medicine; ATTEND Nurse Practitioner Family
PROC: 3E0F7GC Introduction of Other Therapeutic Substance into Respiratory Tract, Via Natural or Artificial Opening (ICD-10-PCS; principal; 2017-06-13)
DX: R07.9 Chest pain, unspecified (principal); I10 Essential (primary) hypertension; E78.5 Hyperlipidemia, unspecified; J45.909 Unspecified asthma, uncomplicated; G43.909 Migraine, unspecified, not intractable, without status migrainosus; Z86.718 Personal history of other venous thrombosis and embolism; Z79.01 Long term (current) use of anticoagulants
CPT/HCPCS: 36415; 71010-TC; 71275-TC; 78452-TC; 80048; 80053; 80061; 83721; 83735; 84100; 84443; 84484; 85025; 85610; 85730; 93005; 93010; 93017; 93970-TC; 94761; 99285-25; A9502; G0378

== ENCOUNTER 2017-08-21 10:04 | Emergency (ER) | payer OTHER ==
[2017-08-21 10:13] VITALS: TEMP 98.2; BMI 32.1
[2017-08-21] MEDS ORDERED: HYDROmorphone HCL CARPU-JECT 1 MG/1 ML DISP.SYRIN IVPUSH ONE (11:41)
[2017-08-21 12:41] LABS: BASOPHIL 0.5 % (0-2.0); EOSINOPHIL 0.6 % (0-4.5); MCHC 31.3 g/dl (32.0-36.0); MEAN CELL VOLUME 86.2 fl (80-96); MEAN PLT VOLUME 8.3 fl (7.5-11.1); NEUTROPHILS 88.8 % (42.8-82.8); PLATELET COUNT 215 K/MM3 (134-434); RDW 16.1 % (11.6-15.6); WHITE BLOOD COUNT 12.2 K/mm3 (4.0-10.0)
[2017-08-21 12:54] LABS: INR 3.82 (0.82-1.09); PROTHROMBIN TIME (PATIENT) 43.2 SEC (9.98-11.88)
[2017-08-21 12:56] LABS: ACTIVATED PTT 50.8 SECONDS (26.9-34.4)
[2017-08-21 13:04] LABS: ANION GAP 5 (8-16); CALCIUM 8.6 mg/dL (8.5-10.1); CO2 29 mmol/L (21-32); CREATININE 0.8 mg/dL (0.55-1.02); GLUCOSE,RANDOM 111 mg/dL (74-106)
--- NOTE | 2017-08-21 13:16 | PDOC ---
History of Present Illness <Juan Miguel Miranda - Last Filed: 08/21/17 18:09> - General History Source: Patient Exam Limitations: No Limitations - History of Present Illness Initial Comments: 08/21/17 13:26 The patient is a 76 year old female with no significant PMH who presents to the emergency department with severe back pain after a fall that occurred two weeks ago. The patient reports that she received a CT scan recently, but came back with no sign of fracture. The primary care physician gave her Flexaril for the pain, but the patient had no relief of symptoms. The patient also notes that she has not been urinating. The patient denies chest pain, shortness of breath, headache and dizziness. Denies fever, chills, nausea, vomit, diarrhea and constipation. Denies dysuria, frequency, urgency and hematuria. Allergies: Penicillins Past surgical history: None reported Social history: No reported alcohol, drug, or cigarette use. <Lubna Armando - Last Filed: 08/21/17 19:29> - General Chief Complaint: Back Pain Stated Complaint: PAIN Time Seen by Provider: 08/21/17 11:14 Past History - Past Medical History Anemia: No Asthma: Yes Cancer: No Cardiac Disorders: Yes (angina) CVA: Yes (tia) COPD: Yes CHF: No Dementia: No Diabetes: No GI Disorders: Yes (ULCER, HERNIA) Disorders: No HTN: Yes Hypercholesterolemia: Yes Liver Disease: No Seizures: Yes Thyroid Disease: Yes - Surgical History Abdominal Surgery: No Appendectomy: No Cardiac Surgery: No Cholecystectomy: No Lung Surgery: No Neurologic Surgery: No Orthopedic Surgery: No - Immunization History Immunization Up to Date: Yes - Suicide/Smoking/Psychosocial Hx Smoking Status: No Smoking History: Never smoked Have you smoked in the past 12 months: No Number of Cigarettes Smoked Daily: 0 Information on smoking cessation initiated: No Hx Alcohol Use: No Drug/Substance Use Hx: No Substance Use Type: None Hx Substance Use Treatment: No <Juan Miguel Miranda - Last Filed: 08/21/17 18:09> <Lubna Armando - Last Filed: 08/21/17 19:29> - Past Medical History Allergies/Adverse Reactions: Allergies Allergy/AdvReac Type Severity Reaction Status Date / Time Penicillins Allergy Swelling Verified 08/21/17 10:08 Home Medications: Ambulatory Orders Albuterol Sulfate Inhaler - [Ventolin HFA Inhaler -] 1 - 2 inh PO Q4H 04/15/17 Budesonide/Formeterol Fumarate [SYMBICORT 160/4.5mcg -] 2 inh PO BID 04/15/17 Cholecalciferol (Vitamin D3) [Vitamin D3] 10,000 unit PO WEEKLY 04/15/17 Fluticasone Prop 0.05% Nasal [Flonase -] 1 - 2 spray NS BID 04/15/17 Levetiracetam [Keppra -] 750 mg PO BID 04/15/17 Levothyroxine [Synthroid -] 25 mcg PO DAILY 04/15/17 Linaclotide [Linzess] 290 mcg PO DAILY 04/15/17 Losartan/Hydrochlorothiazide [Losartan-Hctz 100-25 mg Tab] 1 each PO DAILY 04/15 Montelukast Na [Singulair -] 10 mg PO HS 04/15/17 Pantoprazole Sodium [Protonix -] 40 mg PO DAILY 04/15/17 Warfarin Sodium [Coumadin] 2.5 mg PO ASDIR 04/15/17 Salmeterol/Fluticasone [Advair 250Mcg/50Mcg -] 1 inh PO BID 05/02/17 Nitroglycerin 0.4 mg SL PRN 06/13/17 Simvastatin 40 mg PO HS 06/13/17 Albuterol 0.083% Nebulizer Prabha [Ventolin 0.083% Nebulizer Soln -] 1 amp NEB Q6H PRN #0 amp 06/15/17 Prednisone [Deltasone -] 40 mg PO DAILY #10 tablet 08/01/17 Ondansetron [Zofran *Odt*] 8 mg SL TID #20 od.tablet 08/03/17 Oxycodone HCl/Acetaminophen [Percocet 5-325 mg Tablet] 1 - 2 tab PO Q6H #20 tab MDD 6 08/03/17 Diazepam [Valium] 5 mg PO DAILY #10 tablet MDD 10 08/21/17 Review of Systems - Review of Systems Able to Perform ROS?: Yes Comments:: 08/21/17 13:26 A complete review of 10 out of 10 review of systems is taken and is negative apart from what is previously mentioned below and in the HPI. Constitutional: Yes: Symptoms Reported <Prabha,Lubna - Last Filed: 08/21/17 19:29> *Physical Exam - Vital Signs Last Vital Signs Temp Pulse Resp BP Pulse Ox 98.2 F 81 16 146/80 100 08/21/17 10:08 08/21/17 10:08 08/21/17 10:08 08/21/17 10:08 08/21/17 10:08 <RuthJuan Miguel - Last Filed: 08/21/17 18:09> - Vital Signs Last Vital Signs Temp Pulse Resp BP Pulse Ox 98.2 F 81 16 146/80 100 08/21/17 10:08 08/21/17 10:08 08/21/17 10:08 08/21/17 10:08 08/21/17 10:08 - Physical Exam Comments: 08/21/17 13:27 Vitals: Triage Vital signs reviewed General Appearance: no acute distress, well nourished well developed, Head: Atraumatic, normocephalic Eyes: Pupils equal reactive round, extraocular movement intact Neck: Supple;No Nuchal rigidity Chest Wall: Nontender Cardiac: Regular rate and rhythm, no murmurs, no rubs, no gallops, Lungs: Clear to auscultation bilateral, good air movement bilaterally, Abdomen: Soft, nondistended, normal bowel sounds, nontender to palpation : (+) Not urinating. Back: (+) Midline back tenderness. Extremities: (+) Left leg weakness. No cyanosis, clubbing, or edema Skin: Warm and dry, no rashes or lesions, no petechiae Neuro: AOX3; Cranial Nerves 2-12 grossly intact. Psych: normal mood, normal affect <Lubna Armando - Last Filed: 08/21/17 19:29> Heart Score/ECG Review #1 08/21/17 19:28 EKG performed at [12:05] demonstrates rate of [87], rhythm of [Sinus rhythm with premature atrial complexes], axis equal to [normal]. no T wave inversions, no ST elevations <PrabhaLubna - Last Filed: 08/21/17 19:29> ED Treatment Course - LABORATORY CBC & Chemistry Diagram: 08/21/17 12:26 08/21/17 12:26 - ADDITIONAL ORDERS Additional order review: Laboratory Results 08/21/17 08/21/17 12:26 12:26 PT with INR 43.20 H INR 3.82 H D PTT (Actin FS) 50.8 H Sodium 143 Potassium 5.1 Chloride 109 H Carbon Dioxide 29 Anion Gap 5 L BUN 15 D Creatinine 0.8 Random Glucose 111 H Calcium 8.6 08/21/17 12:26 RBC 4.85 MCV 86.2 MCHC 31.3 L RDW 16.1 H MPV 8.3 Neutrophils % 88.8 H D Lymphocytes % 7.7 L D Monocytes % 2.4 L Eosinophils % 0.6 D Basophils % 0.5 - RADIOLOGY Radiology Studies Ordered: Category Date Time Status LUMBAR SPINE MRI W/O CONTRAST [MRI] Stat MRI 08/21/17 11:40 Ordered <Juan Miguel Miranda - Last Filed: 08/21/17 18:09> - LABORATORY CBC & Chemistry Diagram: 08/21/17 12:26 08/21/17 12:26 - ADDITIONAL ORDERS Additional order review: Laboratory Results 08/21/17 08/21/17 12:26 12:26 PT with INR 43.20 H INR 3.82 H D PTT (Actin FS) 50.8 H Sodium 143 Potassium 5.1 Chloride 109 H Carbon Dioxide 29 Anion Gap 5 L BUN 15 D Creatinine 0.8 Random Glucose 111 H Calcium 8.6 08/21/17 12:26 RBC 4.85 MCV 86.2 MCHC 31.3 L RDW 16.1 H MPV 8.3 Neutrophils % 88.8 H D Lymphocytes % 7.7 L D Monocytes % 2.4 L Eosinophils % 0.6 D Basophils % 0.5 <Lubna Armando - Last Filed: 08/21/17 19:29> Medical Decision Making - Medical Decision Making 08/21/17 18:09 No evidence of cauda equina syndrome on MRI. Acute subacute compression fracture of L3. Patient provided with Valium instead of Flexeril we'll have patient follow-up with Dr. Yin neurosurgery this week Findings, the need for follow-up, strict return instructions discussed with patient. <Juan Miguel Miranda - Last Filed: 08/21/17 18:09> *DC/Admit/Observation/Transfer - Discharge Dispostion Admit: No <Juan Miguel Miranda - Last Filed: 08/21/17 18:09> - Attestations Scribe Attestion: 08/21/17 13:27 Documentation prepared by Lubna Armando, acting as medical officer for Juan Miguel Miranda MD. <Lubna Armando - Last Filed: 08/21/17 19:29> Diagnosis at time of Disposition: Compression fracture of vertebrae Qualifiers: Encounter type: initial encounter Qualified Code(s): M48.50XA - Collapsed vertebra, not elsewhere classified, site unspecified, initial encounter for fracture - Discharge Dispostion Disposition: HOME Condition at time of disposition: Good - Prescriptions Prescriptions: Diazepam [Valium] 5 mg PO DAILY #10 tablet MDD 10 - Referrals Referrals: Clyde Yin MD [Staff Physician] - - Patient Instructions Printed Discharge Instructions: Vertebral Compression Fracture Additional Instructions: Valium as prescribed discontinue Flexeril. Warm compresses 20 minutes on 20 minutes off. Follow-up with Dr. Yin neurosurgery this week Return to ED for any severe worsening symptoms or for any concerns.
[2017-08-21] MEDS ORDERED: HYDROmorphone HCL CARPU-JECT 1 MG/1 ML DISP.SYRIN ONE (13:50)
[2017-08-21] MEDS ORDERED: HYDROmorphone HCL CARPU-JECT 1 MG/1 ML DISP.SYRIN IM ONE (13:50)
[2017-08-21 14:03] LABS: URINE APPEARANCE CLEAR; URINE BILIRUBIN NEGATIVE (NEGATIVE); URINE BLOOD NEGATIVE (NEGATIVE); URINE COLOR LTYELLOW; URINE GLUCOSE (UA) NEGATIVE (NEGATIVE); URINE KETONE NEGATIVE (NEGATIVE); URINE NITRITE NEGATIVE (NEGATIVE); URINE PROTEIN NEGATIVE (NEGATIVE); URINE UROBILINOGEN NEGATIVE mg/dL (0.2-1.0)
[2017-08-21 18:04] VITALS: BP 113/66; PULSE 74
[2017-08-21 19:35] LABS: URINE LEUK ESTERASE Negative (NEGATIVE)
--- NOTE | 2017-08-23 14:44 | EKG ---
Test Reason : Blood Pressure : / mmHG Vent. Rate : 087 BPM Atrial Rate : 087 BPM P-R Int : 126 ms QRS Dur : 070 ms QT Int : 368 ms P-R-T Axes : 055 020 029 degrees QTc Int : 442 ms SINUS RHYTHM WITH PREMATURE ATRIAL COMPLEXES OTHERWISE NORMAL ECG WHEN COMPARED WITH ECG OF 01-AUG-2017 08:24, PREMATURE ATRIAL COMPLEXES ARE NOW PRESENT Confirmed by SELENA GUAJARDO MD ([id number]) on 08/23/2017 2:44:12 PM Referred By: Confirmed By:SELENA GUAJARDO MD
--- NOTE | 2017-08-24 07:58 | PDOC ---
Patient Follow-up (Call Back) - Post ED Follow - Up Condition at time of discharge: Good Disposition at time of original discharge: HOME Reason for Call Back: Abnwl. Microbiology (Urine culture preliminary shows lactose fermenting negative bacilli 10,000-20,000 CFU per milliliter. In M.D. no there was no mention of urinary complaints and urinalysis was negative. Patient had no fever or elevated white count. Patient came for complaints of back pain status post fall with midline tenderness. Will await final report prior to treating.)
--- NOTE | 2017-08-25 08:16 | PDOC ---
Patient Follow-up (Call Back) - Post ED Follow - Up Condition at time of discharge: Good Disposition at time of original discharge: HOME Reason for Call Back: Radiology (+ecoli on ucx, sen to darrion and arnulfo called and left message for pt to call back)
== END 2017-08-21 18:25 | disposition home or self-care (01) ==
LOC: JER 10:04
PROC: 3E023NZ Introduction of Analgesics, Hypnotics, Sedatives into Muscle, Percutaneous Approach (ICD-10-PCS; principal; 2017-08-21)
DX: S32.038D Other fracture of third lumbar vertebra, subsequent encounter for fracture with routine healing (principal); W19.XXXD Unspecified fall, subsequent encounter; I25.119 Atherosclerotic heart disease of native coronary artery with unspecified angina pectoris; I10 Essential (primary) hypertension; J45.909 Unspecified asthma, uncomplicated; J44.9 Chronic obstructive pulmonary disease, unspecified; E78.00 Pure hypercholesterolemia, unspecified; E06.9 Thyroiditis, unspecified; Z86.69 Personal history of other diseases of the nervous system and sense organs; Z86.73 Personal history of transient ischemic attack (TIA), and cerebral infarction without residual deficits
CPT/HCPCS: 36415; 72148-TC; 80048; 81003; 85025; 85610; 85730; 86850; 86900; 86901; 87086; 87186; 93005; 93010; 96372; 99283-25

== ENCOUNTER 2017-08-30 08:43 | Emergency (ER) | payer OTHER ==
[2017-08-30 08:51] VITALS: TEMP 97.8; BMI 32.1
[2017-08-30] MEDS ORDERED: traMADol HCL 50 MG TABLET PO ONE (09:30)
[2017-08-30] MEDS ORDERED: LIDOCAINE 5% TOPICAL PATCH TP ONE (09:30)
--- NOTE | 2017-08-30 09:41 | PDOC ---
History of Present Illness - General Chief Complaint: Pain, Acute Stated Complaint: PAIN Time Seen by Provider: 08/30/17 09:01 History Source: Patient - History of Present Illness Occurred: reports: other Severity: reports: severe Pain Location: reports: back Past History - Past Medical History Allergies/Adverse Reactions: Allergies Allergy/AdvReac Type Severity Reaction Status Date / Time Penicillins Allergy Swelling Verified 08/30/17 09:41 Home Medications: Ambulatory Orders Albuterol Sulfate Inhaler - [Ventolin HFA Inhaler -] 1 - 2 inh PO Q4H 04/15/17 Budesonide/Formeterol Fumarate [SYMBICORT 160/4.5mcg -] 2 inh PO BID 04/15/17 Cholecalciferol (Vitamin D3) [Vitamin D3] 10,000 unit PO WEEKLY 04/15/17 Fluticasone Prop 0.05% Nasal [Flonase -] 1 - 2 spray NS BID 04/15/17 Levetiracetam [Keppra -] 750 mg PO BID 04/15/17 Levothyroxine [Synthroid -] 25 mcg PO DAILY 04/15/17 Linaclotide [Linzess] 290 mcg PO DAILY 04/15/17 Losartan/Hydrochlorothiazide [Losartan-Hctz 100-25 mg Tab] 1 each PO DAILY 04/15 Montelukast Na [Singulair -] 10 mg PO HS 04/15/17 Pantoprazole Sodium [Protonix -] 40 mg PO DAILY 04/15/17 Warfarin Sodium [Coumadin] 2.5 mg PO ASDIR 04/15/17 Salmeterol/Fluticasone [Advair 250Mcg/50Mcg -] 1 inh PO BID 05/02/17 Nitroglycerin 0.4 mg SL PRN 06/13/17 Simvastatin 40 mg PO HS 06/13/17 Albuterol 0.083% Nebulizer Prabha [Ventolin 0.083% Nebulizer Soln -] 1 amp NEB Q6H PRN #0 amp 06/15/17 Diazepam [Valium] 5 mg PO DAILY #10 tablet MDD 10 08/21/17 Nitrofurantoin Monohyd/M-Cryst [Macrobid -] 100 mg PO BID #14 capsule 08/26/17 Docusate Sodium [Colace -] 100 mg PO DAILY #30 capsule 08/30/17 Oxycodone HCl/Acetaminophen [Percocet 5-325 mg Tablet] 1 tab PO Q6H #20 tablet MDD 4 tabs 08/30/17 Anemia: No Asthma: Yes Cancer: No Cardiac Disorders: Yes (angina) CVA: Yes (tia) COPD: Yes CHF: No DVT: No Dementia: No Diabetes: No GI Disorders: Yes (ULCER, HERNIA) Disorders: No HTN: Yes Hypercholesterolemia: Yes Liver Disease: No Seizures: Yes Thyroid Disease: Yes - Surgical History Abdominal Surgery: No Appendectomy: No Cardiac Surgery: No Cholecystectomy: No Lung Surgery: No Neurologic Surgery: No Orthopedic Surgery: No - Immunization History Immunization Up to Date: Yes - Suicide/Smoking/Psychosocial Hx Smoking Status: No Smoking History: Never smoked Have you smoked in the past 12 months: No Number of Cigarettes Smoked Daily: 0 Hx Alcohol Use: No Drug/Substance Use Hx: No Substance Use Type: None Hx Substance Use Treatment: No Review of Systems - Review of Systems Constitutional: No: Chills, Fever ABD/GI: No: Vomiting : No: Flank Pain, Hematuria Musculoskeletal: Yes: Back Pain Neurological: No: Numbness, Tingling, Weakness *Physical Exam - Vital Signs Last Vital Signs Temp Pulse Resp BP Pulse Ox 97.8 F 90 19 146/88 99 08/30/17 08:47 08/30/17 08:47 08/30/17 08:47 08/30/17 08:47 08/30/17 08:47 - Physical Exam General Appearance: Yes: Appropriately Dressed, Mild Distress HEENT: positive: Normal Voice Neck: positive: Supple Respiratory/Chest: positive: Lungs Clear, Normal Breath Sounds. negative: Respiratory Distress Cardiovascular: positive: Regular Rate, S1, S2 Gastrointestinal/Abdominal: positive: Soft. negative: Tender Musculoskeletal: positive: Normal Inspection, Vertebral Tenderness (to mid lower and R mid back). negative: CVA Tenderness Integumentary: positive: Dry, Warm Neurologic: positive: Fully Oriented, Alert, Normal Mood/Affect ED Treatment Course - LABORATORY CBC & Chemistry Diagram: 08/30/17 10:12 08/30/17 11:52 - RADIOLOGY Radiology Studies Ordered: Category Date Time Status CHEST X-RAY PORTABLE* [RAD] Stat Radiology 08/30/17 09:30 Ordered Medical Decision Making - Medical Decision Making 12/04/17 09:36 76-year-old female, history of DVT on Coumadin, COPD, asthma, TIA, hypertension , hyperlipidemia, seizure, gastric ulcers and hernia who was seen in the ED several weeks ago for back pain after fall and ended up having an acute/ subacute compression fracture of the superior endplate of L3. Has since been seen neurosurgery and states she was told they are unable to do surgery at this point as patient is on coumadin. In the meantime, patient has been undergoing physical therapy and currently on Valium for pain, and here w/ persistent pain to mid lower back that radiates to R mid back. No lower extremity weakness, saddle anesthesia, bowel or bladder incontinence. Is able to ambulate with her cane. Also, currently on Macrobid for UTI, which was sensitive on culture. No flank pain, dysuria, hematuria, nausea, vomiting, fever or chills See exam Persistent LBP Recent compression fx on MRI F/u with NS, on valium and undergoing PT No red flags at this time and able to bear weight -pain control in ED and reassess UTI On macrobid (sen on recent cx) No e/o pyelo but as pt states mid back pain radiating to R mid back, will check basic labs 08/30/17 11:16 K 6.2 on unclear etiology. Cr wnl and not on meds known to cause hyperK. No h/o hyperk in past. Will get ekg and resend chemistry at this time 08/30/17 11:35 08/30/17 13:21 Repeat K 4.8. earlier number most likely hemolyzed. EKG unremarkable. Rest of labs unremarkable. Patient better with meds. Will dc in care of daughter to follow-up with PMD and neurosurgeon 08/30/17 13:33 *DC/Admit/Observation/Transfer Diagnosis at time of Disposition: Back pain Qualifiers: Back pain location: low back pain Chronicity: acute Back pain laterality: unspecified Sciatica presence: without sciatica Qualified Code(s): M54.5 - Low back pain - Discharge Dispostion Disposition: HOME Condition at time of disposition: Improved - Prescriptions Prescriptions: Docusate Sodium [Colace -] 100 mg PO DAILY #30 capsule Oxycodone HCl/Acetaminophen [Percocet 5-325 mg Tablet] 1 tab PO Q6H #20 tablet MDD 4 tabs - Referrals - Patient Instructions Additional Instructions: Take medication as directed and please follow up with you PMD and neurosurgeon Complete you macrobid for your UTI - Post Discharge Activity
[2017-08-30] MEDS ORDERED: traMADol HCL 50 MG TABLET ONE (09:43)
[2017-08-30] MEDS ORDERED: LIDOCAINE 5% TOPICAL PATCH ONE (09:43)
[2017-08-30 10:22] LABS: BASOPHIL 0.2 % (0-2.0); MCH 27.6 pg (25.7-33.7); MCHC 32.3 g/dl (32.0-36.0); MEAN CELL VOLUME 85.3 fl (80-96); MEAN PLT VOLUME 8.6 fl (7.5-11.1); PLATELET COUNT 268 K/MM3 (134-434); RDW 15.5 % (11.6-15.6); WHITE BLOOD COUNT 9.6 K/mm3 (4.0-10.0)
[2017-08-30 10:44] LABS: INR 2.11 (0.82-1.09); PROTHROMBIN TIME (PATIENT) 23.8 SEC (9.98-11.88)
[2017-08-30 11:10] LABS: URINE APPEARANCE CLEAR; URINE BILIRUBIN NEGATIVE (NEGATIVE); URINE BLOOD NEGATIVE (NEGATIVE); URINE COLOR LTYELLOW; URINE GLUCOSE (UA) NEGATIVE (NEGATIVE); URINE KETONE NEGATIVE (NEGATIVE); URINE NITRITE NEGATIVE (NEGATIVE); URINE PROTEIN NEGATIVE (NEGATIVE); URINE UROBILINOGEN NEGATIVE mg/dL (0.2-1.0)
[2017-08-30 11:10] LABS: ALBUMIN 3.6 g/dl (3.4-5.0); ANION GAP 4 (8-16); CALCIUM 9.3 mg/dL (8.5-10.1); CO2 30 mmol/L (21-32); CREATININE 0.8 mg/dL (0.55-1.02); GLUCOSE,RANDOM 95 mg/dL (74-106); SGOT/AST 19 U/L (15-37); SGPT/ALT 24 U/L (12-78)
[2017-08-30 11:12] LABS: ALK PHOS 129 U/L (45-117); BILIRUBIN,TOTAL 0.5 mg/dL (0.2-1.0); TOT PROT 6.8 g/dl (6.4-8.2)
[2017-08-30 12:29] LABS: ALBUMIN 3.4 g/dl (3.4-5.0); ALK PHOS 117 U/L (45-117); ANION GAP 3 (8-16); BILIRUBIN,TOTAL 0.4 mg/dL (0.2-1.0); CALCIUM 9.4 mg/dL (8.5-10.1); CO2 34 mmol/L (21-32); CREATININE 0.7 mg/dL (0.55-1.02); GLUCOSE,RANDOM 103 mg/dL (74-106); SGOT/AST 18 U/L (15-37); SGPT/ALT 24 U/L (12-78); TOT PROT 6.2 g/dl (6.4-8.2)
--- NOTE | 2017-08-30 13:15 | EKG ---
Test Reason : Blood Pressure : / mmHG Vent. Rate : 083 BPM Atrial Rate : 083 BPM P-R Int : 124 ms QRS Dur : 068 ms QT Int : 364 ms P-R-T Axes : 040 028 022 degrees QTc Int : 427 ms SINUS RHYTHM WITH PREMATURE SUPRAVENTRICULAR COMPLEXES OTHERWISE NORMAL ECG WHEN COMPARED WITH ECG OF 21-AUG-2017 12:05, NO SIGNIFICANT CHANGE WAS FOUND Confirmed by SELENA GUAJARDO MD ([id number]) on 08/30/2017 1:15:33 PM Referred By: Confirmed By:SELENA GUAJARDO MD
[2017-08-30 13:38] VITALS: BP 151/74; PULSE 82
[2017-08-30 17:07] LABS: URINE LEUK ESTERASE 1+ (NEGATIVE)
[2017-08-30 21:29] LABS: URINE BACTERIA FEW /hpf (NEGATIVE); URINE RBC 0-1 /hpf (0-3)
== END 2017-08-30 13:38 | disposition home or self-care (01) ==
LOC: JER 08:43
DX: M54.5 Low back pain (principal); Z87.440 Personal history of urinary (tract) infections; Z86.718 Personal history of other venous thrombosis and embolism; Z79.01 Long term (current) use of anticoagulants; I10 Essential (primary) hypertension; J44.9 Chronic obstructive pulmonary disease, unspecified; J45.909 Unspecified asthma, uncomplicated; G40.909 Epilepsy, unspecified, not intractable, without status epilepticus; E03.9 Hypothyroidism, unspecified
CPT/HCPCS: 36415; 71010-TC; 80053; 81003; 81015; 85025; 85610; 87086; 93005; 93010; 99283-25

== ENCOUNTER 2018-02-15 16:53 | Emergency (ER) | payer OTHER ==
[2018-02-15] MEDS ORDERED: ALBUTEROL SO4 2.5/IPRATROPIUM 0.5 INH SOL 3 ML VIAL.NEB. NEB ONE ×4 (16:57→18:43)
--- NOTE | 2018-02-15 16:59 | PDOC ---
Rapid Medical Evaluation Time Seen by Provider: 02/15/18 16:55 Medical Evaluation: Allergies Allergy/AdvReac Type Severity Reaction Status Date / Time Penicillins Allergy Swelling Verified 08/30/17 09:41 02/15/18 16:56 Pt. presents for an asthma exacerbation for two days. Dry cough. Pt. states that she is coughing so hard her chest hurts. Also c/o r ear pain. Exam: O2 sat's 100%. CTAB. No respiratory distress. Ordered: Aravindb Pt. to [facility] for further evaluation.
[2018-02-15 17:01] VITALS: BP 121/53; PULSE 73; TEMP 97.3; BMI 31.7
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
[2018-02-15] MEDS ORDERED: methylPREDNISolone NA SUCC 125 MG/2 ML VIAL IVPB ONE (17:57)
[2018-02-15] MEDS ORDERED: MAGNESIUM SULF 50% (8.12 MEQ/2 ML-1 GM VIAL) IVPB ONE (17:57)
[2018-02-15 18:46] LABS: BASO % 1.1 % (0-2.0); EOS % 2.5 % (0-4.5); HEMATOCRIT 41.3 % (32.4-45.2); HEMOGLOBIN 13.5 GM/dL (10.7-15.3); LYMPH % 24.6 % (8-40); MCH 28.1 pg (25.7-33.7); MCHC 32.7 g/dl (32.0-36.0); MEAN CELL VOLUME 86.1 fl (80-96); MEAN PLT VOLUME 8.6 fl (7.5-11.1); MONO % 8.3 % (3.8-10.2); NEUT % 63.5 % (42.8-82.8); PLATELET COUNT 267 K/MM3 (134-434); RBC 4.79 M/mm3 (3.60-5.2); RDW 15.5 % (11.6-15.6); WHITE BLOOD COUNT 10.7 K/mm3 (4.0-10.0)
[2018-02-15 19:03] LABS: INR 2.73 (0.82-1.09); PROTHROMBIN TIME (PATIENT) 30.9 SEC (9.7-13.0)
[2018-02-15 19:19] LABS: ALBUMIN 3.9 g/dl (3.4-5.0); ANION GAP 7 (8-16); BILIRUBIN,TOTAL 0.4 mg/dL (0.2-1.0); BLOOD UREA NITROGEN 36 mg/dL (7-18); CHLORIDE 104 mmol/L (98-107); CO2 30 mmol/L (21-32); GLUCOSE,RANDOM 124 mg/dL (74-106); POTASSIUM 4.1 mmol/L (3.5-5.1); SGOT/AST 21 U/L (15-37); SGPT/ALT 26 U/L (12-78); SODIUM 141 mmol/L (136-145); TOT PROT 7.1 g/dl (6.4-8.2)
[2018-02-15 19:20] LABS: ALK PHOS 101 U/L (45-117)
[2018-02-15 20:10] LABS: URINE APPEARANCE CLEAR; URINE BILIRUBIN NEGATIVE (<2.0 mg/dL); URINE COLOR YELLOW; URINE GLUCOSE (UA) NEGATIVE (NEGATIVE); URINE KETONE NEGATIVE (NEGATIVE); URINE LEUK ESTERASE NEGATIVE (NEGATIVE); URINE NITRITE NEGATIVE (NEGATIVE); URINE PROTEIN NEGATIVE (NEGATIVE); URINE UROBILINOGEN NEGATIVE mg/dL (0.2-1.0)
--- NOTE | 2018-02-15 21:55 | PDOC ---
*Physical Exam - Vital Signs Last Vital Signs Temp Pulse Resp BP Pulse Ox 97.3 F L 73 19 121/53 100 02/15/18 16:57 02/15/18 16:57 02/15/18 16:57 02/15/18 16:57 02/15/18 16:57 ED Treatment Course - LABORATORY CBC & Chemistry Diagram: 02/15/18 18:36 02/15/18 18:36 - ADDITIONAL ORDERS Additional order review: Laboratory Results 02/15/18 02/15/18 02/15/18 19:27 18:36 18:36 PT with INR 30.90 H INR 2.73 H Sodium 141 Potassium 4.1 Chloride 104 Carbon Dioxide 30 Anion Gap 7 L BUN 36 H Creatinine 1.0 Creat Clearance w eGFR 53.62 Random Glucose 124 H Calcium 9.0 Total Bilirubin 0.4 AST 21 ALT 26 Alkaline Phosphatase 101 Total Protein 7.1 Albumin 3.9 Urine Color Yellow Urine Appearance Clear Urine pH 5.0 Ur Specific [place] 1.023 Urine Protein Negative Urine Glucose (UA) Negative Urine Ketones Negative Urine Blood Negative Urine Nitrite Negative Urine Bilirubin Negative Urine Urobilinogen Negative Ur Leukocyte Esterase Negative 02/15/18 18:36 RBC 4.79 MCV 86.1 MCHC 32.7 RDW 15.5 MPV 8.6 Neutrophils % 63.5 Lymphocytes % 24.6 Monocytes % 8.3 Eosinophils % 2.5 Basophils % 1.1 D - Medications Given in the ED: ED Medications Discontinued Medications Generic Name Dose Route Start Last Admin Trade Name Freq PRN Reason Stop Dose Admin Albuterol/Ipratropium 1 amp 02/15/18 16:57 02/15/18 18:47 Duoneb - NEB 02/15/18 16:58 1 amp ONCE ONE Administration Albuterol/Ipratropium 1 amp 02/15/18 17:57 02/15/18 18:47 Duoneb - NEB 02/15/18 17:58 1 amp ONCE ONE Administration Magnesium Sulfate 1 gm 02/15/18 17:57 02/15/18 18:48 Magnesium Sulfate IVPB 02/15/18 17:58 Not Given ONCE ONE Methylprednisolone Sodium Succinate 60 mg 02/15/18 17:57 02/15/18 18:48 Solu-Medrol - IVPB 02/15/18 17:58 Not Given ONCE ONE Medical Decision Making - Medical Decision Making 02/15/18 21:50 The nurse practitioner [facility] the [facility]. He had This patient 's daughter asked that a physician beinvolved inher mother's care while in the physician involved. This PA had already ordered CBC, chemistry, duplex Doppler both legs, chest x- ray and respiratory breathing treatments She did have wheezing upon arrival and received respiratory treatments and Solu- Medrol. Chest x-ray showed an old granuloma but there are no infiltrates, no pneumothorax, no effusions. Duplex Dopplers of the legs are negative for any deep vein thrombosis in either leg. CBC and chemistries were reviewed with patient and family. They are essentially normal with glucose being slightly elevated at 126 Spoke at length with patient and the mother wanted a refill on her Flonase in addition to having her prednisone,ventolin RX sent toher pharmacy *DC/Admit/Observation/Transfer Diagnosis at time of Disposition: Cough Asthma exacerbation Qualifiers: Asthma severity: mild Asthma persistence: unspecified Qualified Code(s): J45.901 - Unspecified asthma with (acute) exacerbation - Discharge Dispostion Disposition: HOME Condition at time of disposition: Stable - Prescriptions Prescriptions: Albuterol 0.083% Nebulizer Prabha [Ventolin 0.083% Nebulizer Soln -] 1 neb NEB Q4H PRN #20 vial PRN Reason: Asthma Fluticasone Prop 0.05% Nasal [Flonase -] 1 - 2 spray NS BID PRN #1 spray.pump PRN Reason: Nasal Congestion Prednisone [Deltasone] 20 mg PO DAILY #4 tablet - Referrals - Patient Instructions Printed Discharge Instructions: DI for Asthma -- Adult, DI for Cough -- Adult Additional Instructions: please followup with your doctor sheepskin pickler your prescription at your pharmacy Print Language: SOMALI - Post Discharge Activity
--- NOTE | 2018-02-18 12:32 | PDOC ---
Patient Follow-up (Call Back) - Post ED Follow - Up Condition at time of discharge: Stable Disposition at time of original discharge: HOME Reason for Call Back: Abnwl. Microbiology (+ucx, sen to bactrim, keflex and macrobid Called pt and l/m to call back Pt not on abx)
--- NOTE | 2018-02-19 08:31 | PDOC ---
Patient Follow-up (Call Back) - Post ED Follow - Up Condition at time of discharge: Stable Disposition at time of original discharge: HOME Reason for Call Back: Abnwl. Microbiology (Patient is requiring antibiotics. Called [phone] but unable to leave message since the mailbox is full. Second attempt.)
--- NOTE | 2018-02-20 08:10 | PDOC ---
Patient Follow-up (Call Back) - Post ED Follow - Up Condition at time of discharge: Stable Disposition at time of original discharge: HOME Reason for Call Back: Abnwl. Microbiology (Unable to leave message. this is third attempt. Patient received a certified letter. Certified letter # [id number])
== END 2018-02-15 22:30 | disposition home or self-care (01) ==
LOC: JER 16:53 → JERFT 16:53 → JER 22:30
PROC: 3E0F7GC Introduction of Other Therapeutic Substance into Respiratory Tract, Via Natural or Artificial Opening (ICD-10-PCS; principal; 2018-02-15)
PROC: 3E0F7GC Introduction of Other Therapeutic Substance into Respiratory Tract, Via Natural or Artificial Opening (ICD-10-PCS; 2018-02-15)
DX: J45.901 Unspecified asthma with (acute) exacerbation (principal); I25.119 Atherosclerotic heart disease of native coronary artery with unspecified angina pectoris; I10 Essential (primary) hypertension; E78.00 Pure hypercholesterolemia, unspecified; G40.909 Epilepsy, unspecified, not intractable, without status epilepticus; E03.9 Hypothyroidism, unspecified; M12.9 Arthropathy, unspecified; Z86.73 Personal history of transient ischemic attack (TIA), and cerebral infarction without residual deficits; Z86.718 Personal history of other venous thrombosis and embolism; Z79.01 Long term (current) use of anticoagulants
CPT/HCPCS: 36415; 71046-TC-FY; 80053; 81003; 85025; 85610; 87086; 87186; 93970-TC; 94640; 99281-25; J7620

== ENCOUNTER 2018-02-21 14:48 | Inpatient (IN) | payer OTHER ==
[2018-02-21] MEDS ORDERED: SODIUM CHLORIDE 1,000 ML IV STA (15:58)
[2018-02-21] MEDS ORDERED: AZITHROMYCIN 500 MG TABLET PO ONE (15:58)
[2018-02-21] MEDS ORDERED: SULFAMETHOXAZOLE/TRIMETHOPRIM 800MG/160MG D.S. TABLET PO ONE (15:59)
[2018-02-21] MEDS ORDERED: AZITHROMYCIN 500 MG TABLET ONE (16:20)
[2018-02-21] MEDS ORDERED: SULFAMETHOXAZOLE/TRIMETHOPRIM 800MG/160MG D.S. TABLET ONE (16:21)
[2018-02-21 16:26] LABS: BASO % 0.7 % (0-2.0); EOS % 1.2 % (0-4.5); HEMATOCRIT 38.4 % (32.4-45.2); HEMOGLOBIN 12.3 GM/dL (10.7-15.3); LYMPH % 21.1 % (8-40); MCH 27.9 pg (25.7-33.7); MEAN CELL VOLUME 87.3 fl (80-96); MONO % 7.8 % (3.8-10.2); NEUT % 69.2 % (42.8-82.8); PLATELET COUNT 249 K/MM3 (134-434); RDW 15.6 % (11.6-15.6); WHITE BLOOD COUNT 11.2 K/mm3 (4.0-10.0)
[2018-02-21 16:49] LABS: PROTHROMBIN TIME (PATIENT) 45.5 SEC (9.7-13.0)
[2018-02-21 16:56] LABS: INR 4.03 (0.82-1.09)
[2018-02-21 17:00] LABS: ALBUMIN 3.4 g/dl (3.4-5.0); ANION GAP 9 (8-16); BILIRUBIN,TOTAL 0.5 mg/dL (0.2-1.0); BLOOD UREA NITROGEN 25 mg/dL (7-18); CALCIUM 8.3 mg/dL (8.5-10.1); CHLORIDE 106 mmol/L (98-107); CO2 28 mmol/L (21-32); CREATININE 0.9 mg/dL (0.55-1.02); GLUCOSE,RANDOM 103 mg/dL (74-106); MAGNESIUM 2.2 mg/dL (1.8-2.4); POTASSIUM 4.1 mmol/L (3.5-5.1); SGOT/AST 26 U/L (15-37); SGPT/ALT 34 U/L (12-78); SODIUM 143 mmol/L (136-145); TOT PROT 6.4 g/dl (6.4-8.2)
[2018-02-21 17:03] LABS: ALK PHOS 77 U/L (45-117)
--- NOTE | 2018-02-21 17:21 | PDOC ---
Attending Attestation - Resident Resident Name: JonoClyde salazar - ED Attending Attestation I have performed the following: I have examined & evaluated the patient, The case was reviewed & discussed with the resident, I agree w/resident's findings & plan, Exceptions are as noted - HPI HPI: 02/21/18 17:22 77yo F HL, arthritis, HTN, b/l DVT, asthma presents to the ED for the third time in one week for nasal congestion, shortness of breath, cough, and room spinning dizziness. Pt's daughter states she brought her back today because she was so dizzy, that she almost fell 3 times. Pt did not fall or lose consiousness. Pt also c/o copious malodorous nasal discharge, at times with mild bleeding after she sticks cotton swabs up her nose to try and drain the discharge. Pt has tried flonase, steroids as outpt with minimal relief. Pt also c/o SOB that has been progressive over the last week. Patient has not seen her primary care doctor over the last week as she is visiting from [place] and does not have a doctor in the area. The patient denies chest pain, nausea, vomiting, abdominal pain, lower extremity edema, focal weakness/numbness. - Physicial Exam PE: 02/21/18 17:30 GENERAL: Awake, alert, and fully oriented, in no acute distress HEAD: No signs of trauma EYES: PERRLA, EOMI, sclera anicteric, conjunctiva clear ENT: Auricles normal inspection, hearing grossly normal, nares patent, oropharynx clear without exudates. Moist mucosa NECK: Normal ROM, supple, no lymphadenopathy, JVD, or masses LUNGS: Breath sounds equal, clear to auscultation bilaterally. No wheezes, and no crackles HEART: Regular rate and rhythm, normal S1 and S2, no murmurs, rubs or gallops ABDOMEN: Soft, nontender, normoactive bowel sounds. No guarding, no rebound. No masses EXTREMITIES: Normal range of motion, no edema. No clubbing or cyanosis. No cords, erythema, or tenderness NEUROLOGICAL: Normal speech, cranial nerves intact, negative pronator drift, 5/ 5 strength in all 4 extremities, normal sensation to light touch in all 4 extremities, normal cerebellar exam, normal gait, normal reflexes and tone SKIN: Warm, Dry, normal turgor, no rashes or lesions noted. - Medical Decision Making 02/21/18 17:37 77-year-old female with multiple medical problems presents to the emergency department for multiple complaints including dizziness, shortness of breath, cough and malodorous nasal congestion. Vitals and exam unremarkable. Patient states she almost fell 3 times today due to her dizziness. Given her recurrent presentations to the emergency department will do a broad workup including CT head, facial bones, repeat labs and chest x-ray and likely admit to observation. Patient had a urinalysis that was positive for 80,000 pansensitive Escherichia coli, will treat patient for UTI at this time in case it is contributing to her symptoms as well.
--- NOTE | 2018-02-21 17:37 | PDOC ---
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 She's had these symptoms for about 2 weeks. Patient states that she' s been to the ED for 2 prior visits for similar symptoms. She was here 6 days ago. Labs, urines, DVT US, CXR were all within normal limits. She was found to have e coli in her urine, but never received a message. She describes the room spinning around her without worsening or relieving factors. Her daughter states that she's almost fallen several times. She says the malodorous nose discharge is after she uses a q tip in her nose. Denies fevers. Denies chest pain. Denies leg swelling. Past History - Past Medical History Allergies/Adverse Reactions: Allergies Allergy/AdvReac Type Severity Reaction Status Date / Time Penicillins Allergy Swelling Verified 02/21/18 14:51 Home Medications: Ambulatory Orders Albuterol Sulfate Inhaler - [Ventolin HFA Inhaler -] 1 - 2 inh PO Q4H 04/15/17 Budesonide/Formeterol Fumarate [SYMBICORT 160/4.5mcg -] 2 inh PO BID 04/15/17 Cholecalciferol (Vitamin D3) [Vitamin D3] 10,000 unit PO WEEKLY 04/15/17 Fluticasone Prop 0.05% Nasal [Flonase -] 1 - 2 spray NS BID 04/15/17 Levothyroxine [Synthroid -] 25 mcg PO DAILY 04/15/17 Linaclotide [Linzess] 290 mcg PO DAILY 04/15/17 Losartan/Hydrochlorothiazide [Losartan-Hctz 100-25 mg Tab] 1 each PO DAILY 04/15 Montelukast Na [Singulair -] 10 mg PO HS 04/15/17 Pantoprazole Sodium [Protonix -] 40 mg PO DAILY 04/15/17 Warfarin Sodium [Coumadin] 2.5 mg PO ASDIR 04/15/17 levETIRAcetam [Keppra -] 750 mg PO BID 04/15/17 Salmeterol/Fluticasone [Advair 250Mcg/50Mcg -] 1 inh PO BID 05/02/17 Nitroglycerin 0.4 mg SL PRN 06/13/17 Simvastatin 40 mg PO HS 06/13/17 Albuterol 0.083% Nebulizer Prabha [Ventolin 0.083% Nebulizer Soln -] 1 amp NEB Q6H PRN #0 amp 06/15/17 Diazepam [Valium] 5 mg PO DAILY #10 tablet MDD 10 08/21/17 Nitrofurantoin Monohyd/M-Cryst [Macrobid -] 100 mg PO BID #14 capsule 08/26/17 Oxycodone HCl/Acetaminophen [Percocet 5-325 mg Tablet] 1 tab PO Q6H #20 tablet MDD 4 tabs 08/30/17 Albuterol 0.083% Nebulizer Prabha [Ventolin 0.083% Nebulizer Soln -] 1 neb NEB Q4H PRN #20 vial 02/15/18 Albuterol Sulfate Inhaler - [Ventolin Hfa Inhaler -] 1 - 2 inh PO Q4H PRN #1 inhaler 02/15/18 Prednisone [Deltasone] 20 mg PO DAILY #4 tablet 02/15/18 Anemia: No Asthma: Yes Cancer: No Cardiac Disorders: Yes (angina) CVA: Yes (tia) COPD: Yes CHF: No DVT: No Dementia: No Diabetes: No GI Disorders: Yes (ULCER, HERNIA) Disorders: No HTN: Yes Hypercholesterolemia: Yes Liver Disease: No Seizures: Yes Thyroid Disease: Yes - Surgical History Abdominal Surgery: No Appendectomy: No Cardiac Surgery: No Cholecystectomy: No Lung Surgery: No Neurologic Surgery: No Orthopedic Surgery: No - Immunization History Immunization Up to Date: Yes - Suicide/Smoking/Psychosocial Hx Smoking Status: No Smoking History: Never smoked Have you smoked in the past 12 months: No Number of Cigarettes Smoked Daily: 0 Hx Alcohol Use: No Drug/Substance Use Hx: No Substance Use Type: None Hx Substance Use Treatment: No Review of Systems - Review of Systems Comments:: 02/21/18 17:41 GENERAL/CONSTITUTIONAL: No fever or chills. Positive for weakness. HEAD, EYES, EARS, NOSE AND THROAT: No change in vision. Positive for ear pain. Positive for sore throat. CARDIOVASCULAR: No chest pain. Positive for shortness of breath RESPIRATORY: Positive for cough. Negative for wheezing, or hemoptysis. GASTROINTESTINAL: Positive for nausea. Negative for vomiting, diarrhea or constipation. GENITOURINARY: No dysuria, frequency, or change in urination. MUSCULOSKELETAL: No joint or muscle swelling or pain. No neck or back pain. SKIN: No rash NEUROLOGIC: Positive for headache, vertigo. Negative for loss of consciousness, or change in strength/sensation. HEMATOLOGIC/LYMPHATIC: No anemia, easy bleeding. Positive for history of blood clots. ALLERGIC/IMMUNOLOGIC: No hives or skin allergy. *Physical Exam - Vital Signs Last Vital Signs Temp Pulse Resp BP Pulse Ox 98.0 F 83 16 149/70 100 02/21/18 17:15 02/21/18 17:15 02/21/18 17:15 02/21/18 17:15 02/21/18 17:15 - Physical Exam Comments: 02/21/18 17:42 GENERAL: Awake, alert, and fully oriented, in no acute distress, speaking in long rapid sentences HEAD: No signs of trauma, normocephalic, atraumatic EYES: PERRLA, EOMI, sclera anicteric, conjunctiva clear ENT: Auricles normal inspection, hearing grossly normal, nares patent, oropharynx clear without exudates. Moist mucosa NECK: Normal ROM, supple, no lymphadenopathy, JVD, or masses LUNGS: No distress, speaks full sentences, clear to auscultation bilaterally HEART: Regular rate and rhythm, normal S1 and S2, no murmurs, rubs or gallops, peripheral pulses normal and equal bilaterally. ABDOMEN: Soft, nontender, normoactive bowel sounds. No guarding, no rebound. No masses EXTREMITIES: Normal inspection, Normal range of motion, no edema. No clubbing or cyanosis. NEUROLOGICAL: Cranial nerves II through XII grossly intact. Normal speech, no focal sensorimotor deficits SKIN: Warm, Dry, normal turgor, no rashes or lesions noted. ED Treatment Course - LABORATORY CBC & Chemistry Diagram: 02/21/18 16:13 02/21/18 16:13 - ADDITIONAL ORDERS Additional order review: Laboratory Results 02/21/18 02/21/18 16:13 16:13 PT with INR 45.50 H INR 4.03 H* D Sodium 143 Potassium 4.1 Chloride 106 Carbon Dioxide 28 Anion Gap 9 BUN 25 H Creatinine 0.9 Creat Clearance w eGFR > 60 Random Glucose 103 Calcium 8.3 L Magnesium 2.2 Total Bilirubin 0.5 D AST 26 ALT 34 Alkaline Phosphatase 77 Creatine Kinase 143 Troponin I < 0.02 Total Protein 6.4 Albumin 3.4 02/21/18 16:13 RBC 4.40 MCV 87.3 MCHC 32.0 RDW 15.6 MPV 9.0 Neutrophils % 69.2 Lymphocytes % 21.1 Monocytes % 7.8 Eosinophils % 1.2 Basophils % 0.7 - RADIOLOGY Radiology Studies Ordered: Category Date Time Status CHEST X-RAY PORTABLE* [RAD] Stat Radiology 02/21/18 15:58 Taken - Medications Given in the ED: ED Medications Discontinued Medications Generic Name Dose Route Start Last Admin Trade Name Freq PRN Reason Stop Dose Admin Azithromycin 500 mg 02/21/18 15:58 02/21/18 16:18 Azithromycin PO 02/21/18 15:59 500 mg ONCE ONE Administration Sodium Chloride 1,000 mls @ 1,000 mls/hr 02/21/18 15:58 02/21/18 17:19 Normal Saline - IV 02/21/18 16:57 1,000 mls/hr ASDIR STA Administration Trimethoprim/Sulfamethoxazole 1 each 02/21/18 15:59 02/21/18 16:18 Bactrim Ds - PO 02/21/18 16:00 1 each ONCE ONE Administration Medical Decision Making - Medical Decision Making 02/21/18 17:42 Patient is 77F with history of HLD, HTN, DVTs on coumadin here today with multiple complaints. Vital signs normal and stable. Lung exam clear. Dizziness most concerning. Will evaluate with cbc, cmp, ekg, trop, cxr, head ct and facial bones ct. Given bactrim for e coli positive uc. Treated with azithromycin for possible bronchitis. 02/21/18 17:44 Laboratory Tests 02/21/18 02/21/18 02/21/18 16:13 16:13 16:13 WBC 11.2 H Hgb 12.3 Plt Count 249 INR 4.03 H* D BUN 25 H Creatinine 0.9 Troponin I < 0.02 CBC shows small leukocytosis. INR elevated, supratherapeutic. CMP and troponin reassuring. CT head and facial bones pending. 02/21/18 19:[address] De La Rosa. *DC/Admit/Observation/Transfer Diagnosis at time of Disposition: Dizziness - Discharge Dispostion Condition at time of disposition: Stable - Referrals - Patient Instructions - Post Discharge Activity
--- NOTE | 2018-02-21 19:56 | PDOC ---
*Physical Exam - Vital Signs Last Vital Signs Temp Pulse Resp BP Pulse Ox 98.0 F 83 16 149/70 100 02/21/18 17:15 02/21/18 17:15 02/21/18 17:15 02/21/18 17:15 02/21/18 17:15 - Physical Exam Comments: 02/22/18 02:13 General Appearance: Nourished. No Apparent Distress HEENT: No Pharyngeal Erythema, Tonsillar Exudate, Tonsillar Erythema Neck: No Cervical Lymphadenopathy Respiratory/Chest: Lungs Clear, Normal Breath Sounds. No Crackles, Rales, Rhonchi, Wheezing Cardiovascular: Regular Rhythm, Regular Rate. No Murmur, Gallops, Rubs Gastrointestinal/Abdominal: Normal Bowel Sounds, Soft. No Guarding, Rebound, Tenderness Musculoskeletal: No CVA Tenderness Extremity: Normal Capillary Refill Integumentary: Normal Color, Dry, Warm Neurologic: Fully Oriented, Alert, Normal Mood/Affect, Normal Response, ED Treatment Course - LABORATORY CBC & Chemistry Diagram: 02/21/18 16:13 02/21/18 16:13 - ADDITIONAL ORDERS Additional order review: Laboratory Results 02/21/18 02/21/18 16:13 16:13 PT with INR 45.50 H INR 4.03 H* D Sodium 143 Potassium 4.1 Chloride 106 Carbon Dioxide 28 Anion Gap 9 BUN 25 H Creatinine 0.9 Creat Clearance w eGFR > 60 Random Glucose 103 Calcium 8.3 L Magnesium 2.2 Total Bilirubin 0.5 D AST 26 ALT 34 Alkaline Phosphatase 77 Creatine Kinase 143 Troponin I < 0.02 Total Protein 6.4 Albumin 3.4 02/21/18 16:13 RBC 4.40 MCV 87.3 MCHC 32.0 RDW 15.6 MPV 9.0 Neutrophils % 69.2 Lymphocytes % 21.1 Monocytes % 7.8 Eosinophils % 1.2 Basophils % 0.7 - Medications Given in the ED: ED Medications Discontinued Medications Generic Name Dose Route Start Last Admin Trade Name Freq PRN Reason Stop Dose Admin Azithromycin 500 mg 02/21/18 15:58 02/21/18 16:18 Azithromycin PO 02/21/18 15:59 500 mg ONCE ONE Administration Sodium Chloride 1,000 mls @ 1,000 mls/hr 02/21/18 15:58 02/21/18 17:19 Normal Saline - IV 02/21/18 16:57 1,000 mls/hr ASDIR STA Administration Trimethoprim/Sulfamethoxazole 1 each 02/21/18 15:59 02/21/18 16:18 Bactrim Ds - PO 02/21/18 16:00 1 each ONCE ONE Administration Progress Note - Progress Note Progress Note: The patient is a 77 year old female who presents for evaluation of SOB and dizziness with headache. The patient is pending CT head and facial bones and is to be observation admitted for persistent SOB. Medical Decision Making - Medical Decision Making 02/22/18 02:14 CT imagine was unremarkable as preliminarily read by our environmental services floor tech radiologist. We discussed the case with Dr. Qureshi who accepted the patient for admission. *DC/Admit/Observation/Transfer Diagnosis at time of Disposition: Dizziness, Shortness of breath - Discharge Dispostion Condition at time of disposition: Stable Decision to Admit order: Yes - Referrals - Patient Instructions - Post Discharge Activity
[2018-02-21 20:26] LABS: ARTERIAL BLD GAS O2 SATURATION 94.3 % (90-98.9); ARTERIAL BLOOD GAS PCO2 40.2 mmHg (35-45); ARTERIAL BLOOD GAS PO2 71.8 mmHg (70-100); ARTERIAL BLOOD GAS pH 7.41 (7.35-7.45); CARBOXYHEMOGLOBIN 1.4 gm% (0.5-2.0)
[2018-02-21 20:27] LABS: ALLENS TEST POSITIVE
[2018-02-21] MEDS ORDERED: ALBUTEROL SO4 0.083% IH SOL 2.5 MG/3 ML VIAL.NEB. NEB PRN (21:23)
--- NOTE | 2018-02-21 21:23 | HP ---
Admitting History and Physical - Primary Care Physician PCP: Amelia Qureshi - Admission Chief Complaint: dizziness History of Present Illness: 77yo F, arthritis, HTN, b/l DVT, asthma presents to the ED for the third time in one week for nasal congestion, shortness of breath, cough, and room spinning dizziness. Pt's daughter states she brought her back today because she was so dizzy, that she almost fell 3 times. Pt did not fell or loose consiousness. Pt also c/o copious malodorous nasal discharge, at times with mild bleeding after she sticks cotton swabs up her nose to try and drain the discharge. Pt has tried flonase, steroids as outpt with minimal relief. Pt also c/o SOB that has been progressive over the last week. Patient has not seen her primary care doctor over the last week as she is visiting from [place] and does not have a doctor in the area. The patient denies chest pain, nausea, vomiting, abdominal pain, lower extremity edema, focal weakness/numbness. 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, Seizure ( last seizure >10yrs ago), Vertigo Cardiovascular: Yes: HTN Pulmonary: Yes: Asthma Gastrointestinal: Yes: Gastritis, Peptic Ulcer Disease Musculoskeletal: Yes: Other (arthritis (type not specificed)) ENT: Yes: Sinusitis Endocrine: Yes: Hypothyroidism - Past Surgical History Past Surgical History: Yes: Breast Biopsy, Hysterectomy - Smoking History Smoking history: Never smoked Have you smoked in the past 12 months: No Aproximately how many cigarettes per day: 0 - Alcohol/Substance Use Hx Alcohol Use: No History of Substance Use: reports: None - Social History Occupation: retired 20 yrs ago History of Recent Travel: Yes (traveled from [place]) Home Medications - Allergies Allergies/Adverse Reactions: Allergies Allergy/AdvReac Type Severity Reaction Status Date / Time Penicillins Allergy Swelling Verified 02/21/18 14:51 - Home Medications Home Medications: Ambulatory Orders Albuterol Sulfate Inhaler - [Ventolin HFA Inhaler -] 1 - 2 inh PO Q4H 04/15/17 Budesonide/Formeterol Fumarate [SYMBICORT 160/4.5mcg -] 2 inh PO BID 04/15/17 Cholecalciferol (Vitamin D3) [Vitamin D3] 10,000 unit PO WEEKLY 04/15/17 Fluticasone Prop 0.05% Nasal [Flonase -] 1 - 2 spray NS BID 04/15/17 Levothyroxine [Synthroid -] 25 mcg PO DAILY 04/15/17 Linaclotide [Linzess] 290 mcg PO DAILY 04/15/17 Losartan/Hydrochlorothiazide [Losartan-Hctz 100-25 mg Tab] 1 each PO DAILY 04/15 Montelukast Na [Singulair -] 10 mg PO HS 04/15/17 Pantoprazole Sodium [Protonix -] 40 mg PO DAILY 04/15/17 Warfarin Sodium [Coumadin] 2.5 mg PO ASDIR 04/15/17 levETIRAcetam [Keppra -] 750 mg PO BID 04/15/17 Salmeterol/Fluticasone [Advair 250Mcg/50Mcg -] 1 inh PO BID 05/02/17 Nitroglycerin 0.4 mg SL PRN 06/13/17 Simvastatin 40 mg PO HS 06/13/17 Albuterol 0.083% Nebulizer Prabha [Ventolin 0.083% Nebulizer Soln -] 1 amp NEB Q6H PRN #0 amp 06/15/17 Diazepam [Valium] 5 mg PO DAILY #10 tablet MDD 10 08/21/17 Nitrofurantoin Monohyd/M-Cryst [Macrobid -] 100 mg PO BID #14 capsule 08/26/17 Oxycodone HCl/Acetaminophen [Percocet 5-325 mg Tablet] 1 tab PO Q6H #20 tablet MDD 4 tabs 08/30/17 Albuterol 0.083% Nebulizer Prabha [Ventolin 0.083% Nebulizer Soln -] 1 neb NEB Q4H PRN #20 vial 02/15/18 Albuterol Sulfate Inhaler - [Ventolin HFA Inhaler -] 1 - 2 inh PO Q4H PRN #1 inhaler 02/15/18 Prednisone [Deltasone] 20 mg PO DAILY #4 tablet 02/15/18 Azithromycin [Zithromax 250mg Tablets -] 500 mg PO DAILY #4 tablet 02/23/18 Family Disease History - Family Disease History Family Disease History: Diabetes: Father ( of [place]), Mother ( of uterine cancer), Heart Disease: Father, Respiratory: Sister (asthma) Review of Systems - Review of Systems Respiratory: reports: SOB Physical Examination Vital Signs: Vital Signs Temperature 98.0 F 02/21/18 17:15 Pulse Rate 83 02/21/18 17:15 Respiratory Rate 16 02/21/18 17:15 Blood Pressure 149/70 02/21/18 17:15 O2 Sat by Pulse Oximetry (%) 100 02/21/18 17:15 Constitutional: Yes: No Distress HENT: Yes: Atraumatic Neck: Yes: Supple Cardiovascular: Yes: Regular Rate and Rhythm Respiratory: Yes: Rales, Rhonchi Gastrointestinal: Yes: Normal Bowel Sounds Extremities: Yes: WNL Edema: No Neurological: Yes: Alert, Oriented Labs: CBC, BMP 02/21/18 16:13 02/21/18 16:13 Imaging - Results X-ray: Report Reviewed Cat Scan: Report Reviewed Problem List - Problems (1) Dizziness Assessment/Plan: resolved Code(s): R42 - DIZZINESS AND GIDDINESS (2) Shortness of breath Assessment/Plan: doing better on duo nebs steroids Code(s): R06.02 - SHORTNESS OF BREATH (3) Hypothyroidism Code(s): E03.9 - HYPOTHYROIDISM, UNSPECIFIED Qualifiers: Hypothyroidism type: unspecified Qualified Code(s): E03.9 - Hypothyroidism , unspecified (4) Sinusitis Assessment/Plan: chronic need id input Code(s): J32.9 - CHRONIC SINUSITIS, UNSPECIFIED Qualifiers: Sinusitis location: maxillary Chronicity: unspecified Qualified Code(s): J32.0 - Chronic maxillary sinusitis Assessment/Plan Laboratory Tests 02/21/18 02/21/18 02/21/18 16:13 16:13 16:13 WBC 11.2 H RBC 4.40 Hgb 12.3 Hct 38.4 MCV 87.3 MCH 27.9 MCHC 32.0 RDW 15.6 Plt Count 249 MPV 9.0 Neutrophils % 69.2 Lymphocytes % 21.1 Monocytes % 7.8 Eosinophils % 1.2 Basophils % 0.7 Nucleated RBC % 0 PT with INR 45.50 H INR 4.03 H* D Puncture Site ABG pH ABG pCO2 at Pt Temp ABG pO2 at Pt Temp ABG HCO3 ABG O2 Sat (Measured) ABG O2 Content ABG Base Excess Hay Test Carboxyhemoglobin Methemoglobin Oxygen Flow Rate PEEP Sodium 143 Potassium 4.1 Chloride 106 Carbon Dioxide 28 Anion Gap 9 BUN 25 H Creatinine 0.9 Creat Clearance w eGFR > 60 Random Glucose 103 Calcium 8.3 L Magnesium 2.2 Total Bilirubin 0.5 D AST 26 ALT 34 Alkaline Phosphatase 77 Creatine Kinase 143 Troponin I < 0.02 Total Protein 6.4 Albumin 3.4 02/21/18 19:56 WBC RBC Hgb Hct MCV MCH MCHC RDW Plt Count MPV Neutrophils % Lymphocytes % Monocytes % Eosinophils % Basophils % Nucleated RBC % PT with INR INR Puncture Site Left brachial ABG pH 7.41 ABG pCO2 at Pt Temp 40.2 ABG pO2 at Pt Temp 71.8 D ABG HCO3 25.1 ABG O2 Sat (Measured) 94.3 ABG O2 Content 16.1 ABG Base Excess 1.0 Hay Test Positive Carboxyhemoglobin 1.4 Methemoglobin 1.4 Oxygen Flow Rate No PEEP 0.0 Sodium Potassium Chloride Carbon Dioxide Anion Gap BUN Creatinine Creat Clearance w eGFR Random Glucose Calcium Magnesium Total Bilirubin AST ALT Alkaline Phosphatase Creatine Kinase Troponin I Total Protein Albumin Active Medications Generic Name Dose Route Start Last Admin Trade Name Freq PRN Reason Stop Dose Admin Acetaminophen 650 mg 02/21/18 21:28 Tylenol - PO Q6H PRN FEVER Albuterol Sulfate 1 amp 02/21/18 21:23 02/22/18 05:20 Ventolin 0.083% Nebulizer Soln - NEB 1 amp Q4H PRN Administration ASTHMA Atorvastatin Calcium 20 mg 02/22/18 22:00 Lipitor - PO HS LUIZA Diazepam 5 mg 02/22/18 10:00 02/22/18 10:19 Valium - PO 5 mg DAILY LUIZA Administration HCTZ/Losartan Potassium 2 tab 02/22/18 10:00 02/22/18 10:19 Hyzaar - PO 2 tab DAILY LUIZA Administration Levetiracetam 500 mg/ 750 mg 02/21/18 22:30 02/22/18 10:18 Levetiracetam 250 mg PO 750 mg BID LUIZA Administration Levothyroxine Sodium 25 mcg 02/22/18 07:00 02/22/18 06:03 Synthroid - PO 25 mcg DAILY@0700 LUIZA Administration Montelukast Sodium 10 mg 02/21/18 22:00 02/21/18 23:19 Singulair - PO 10 mg HS LUIZA Administration Non-Formulary Medication 290 mcg 02/22/18 10:00 Linaclotide [Linzess] PO DAILY LUIZA Prednisone 20 mg 02/22/18 10:00 02/22/18 10:19 Deltasone - PO 20 mg DAILY LUIZA Administration
[2018-02-21] MEDS ORDERED: ACETAMINOPHEN 325 MG TABLET (FP) PO PRN (21:28)
[2018-02-21] MEDS ORDERED: WARFARIN NA 2 MG TABLET (UD) PO SCH (21:30)
[2018-02-21] MEDS ORDERED: PATIENT'S OWN MEDICATION (NON-FORMULARY) (Levetiracetam [Keppra -] 750 MG) PO SCH (22:00)
[2018-02-21] MEDS: MONTELUKAST NA 10 MG TABLET PO SCH (23:19)
[2018-02-21] MEDS ORDERED: MONTELUKAST NA 10 MG TABLET ONE (23:30)
[2018-02-22 02:51] VITALS: BMI 29.3
[2018-02-22] MEDS: LEVOTHYROXINE NA 25 MCG TABLET (FP) PO SCH (06:03)
[2018-02-22 07:43] LABS: BASO % 0.9 % (0-2.0); EOS % 2.7 % (0-4.5); HEMOGLOBIN 11.9 GM/dL (10.7-15.3); LYMPH % 26.5 % (8-40); MCH 28.3 pg (25.7-33.7); MCHC 32.1 g/dl (32.0-36.0); MEAN PLT VOLUME 8.9 fl (7.5-11.1); MONO % 7.3 % (3.8-10.2); NEUT % 62.6 % (42.8-82.8); PLATELET COUNT 211 K/MM3 (134-434); RBC 4.21 M/mm3 (3.60-5.2); RDW 15.4 % (11.6-15.6); WHITE BLOOD COUNT 11.4 K/mm3 (4.0-10.0)
[2018-02-22 08:20] LABS: ALBUMIN 3.2 g/dl (3.4-5.0); ANION GAP 5 (8-16); BLOOD UREA NITROGEN 20 mg/dL (7-18); CALCIUM 8.2 mg/dL (8.5-10.1); CHLORIDE 108 mmol/L (98-107); CO2 29 mmol/L (21-32); GLUCOSE,RANDOM 85 mg/dL (74-106); POTASSIUM 4.1 mmol/L (3.5-5.1); SODIUM 142 mmol/L (136-145)
[2018-02-22 08:22] LABS: INR 3.03 (0.82-1.09); PROTHROMBIN TIME (PATIENT) 34.2 SEC (9.7-13.0)
[2018-02-22 08:24] LABS: ALK PHOS 66 U/L (45-117); BILIRUBIN,TOTAL 0.8 mg/dL (0.2-1.0); CREATININE 0.8 mg/dL (0.55-1.02); SGOT/AST 20 U/L (15-37); SGPT/ALT 29 U/L (12-78); TOT PROT 5.6 g/dl (6.4-8.2)
[2018-02-22] MEDS ORDERED: PATIENT'S OWN MEDICATION (NON-FORMULARY) (Linaclotide [Linzess] 290 MCG) PO SCH (10:00)
[2018-02-22] MEDS ORDERED: levETIRAcetam 250 MG TABLET (FP) PO ONE ×2 (10:14→20:28)
[2018-02-22] MEDS ORDERED: levETIRAcetam 500 MG TABLET (FP) PO ONE ×2 (10:15→20:29)
[2018-02-22] MEDS: diazePAM 5 MG TABLET PO SCH (10:19)
[2018-02-22] MEDS: LOSARTAN 50MG/HCTZ 12.5MG 1 TAB (FP) PO SCH (10:19)
[2018-02-22] MEDS: predniSONE 20 MG TABLET (UD) PO SCH (10:19)
--- NOTE | 2018-02-22 12:54 | CON.CARD ---
Consult Consult Specialty:: Cardiology Referred by:: Dr. Qureshi Reason for Consultation:: Cardiac evaluation - History of Present Illness Chief Complaint: Shortness of breath and cough History of Present Illness: Patient is a 77 year old female of descent with underlying history of HTN, DVT both lower extremity and bronchial asthma who presents to ED with nasal congestion, shortness of breath, cough and dizziness. She almost fell, but did not and no history of syncope. She denies chest pain or palpitations. She denies paroxysmal nocturnal dyspnea or orthopnea. She denies nausea, vomiting, diarrhea or abdominal pain. She denies fever or chills. She denies headache. Her symptoms have been progressive over past 1 week. 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 ( last seizure >10yrs ago), Vertigo Cardio/Vascular: Yes: HTN Pulmonary: Yes: Asthma Gastrointestinal: Yes: Gastritis, Peptic Ulcer Disease Musculoskeletal: Yes: Other (arthritis (type not specificed)) ENT: Yes: Sinusitis Endocrine: Yes: Hypothyroidism Additional Medical History: DVTs, HPL - Past Surgical History Past Surgical History: Yes: Breast Biopsy, Hysterectomy - Alcohol/Substance Use Hx Alcohol Use: No History of Substance Use: reports: None - Smoking History Smoking history: Never smoked Have you smoked in the past 12 months: No Aproximately how many cigarettes per day: 0 - Social History Occupation: retired 20 yrs ago History of Recent Travel: Yes (traveled from [place]) Home Medications - Allergies Allergies/Adverse Reactions: Allergies Allergy/AdvReac Type Severity Reaction Status Date / Time Penicillins Allergy Swelling Verified 02/21/18 14:51 - Home Medications Home Medications: Ambulatory Orders Albuterol Sulfate Inhaler - [Ventolin HFA Inhaler -] 1 - 2 inh PO Q4H 04/15/17 Budesonide/Formeterol Fumarate [SYMBICORT 160/4.5mcg -] 2 inh PO BID 04/15/17 Cholecalciferol (Vitamin D3) [Vitamin D3] 10,000 unit PO WEEKLY 04/15/17 Fluticasone Prop 0.05% Nasal [Flonase -] 1 - 2 spray NS BID 04/15/17 Levothyroxine [Synthroid -] 25 mcg PO DAILY 04/15/17 Linaclotide [Linzess] 290 mcg PO DAILY 04/15/17 Losartan/Hydrochlorothiazide [Losartan-Hctz 100-25 mg Tab] 1 each PO DAILY 04/15 Montelukast Na [Singulair -] 10 mg PO HS 04/15/17 Pantoprazole Sodium [Protonix -] 40 mg PO DAILY 04/15/17 Warfarin Sodium [Coumadin] 2.5 mg PO ASDIR 04/15/17 levETIRAcetam [Keppra -] 750 mg PO BID 04/15/17 Salmeterol/Fluticasone [Advair 250Mcg/50Mcg -] 1 inh PO BID 05/02/17 Nitroglycerin 0.4 mg SL PRN 06/13/17 Simvastatin 40 mg PO HS 06/13/17 Albuterol 0.083% Nebulizer Prabha [Ventolin 0.083% Nebulizer Soln -] 1 amp NEB Q6H PRN #0 amp 06/15/17 Diazepam [Valium] 5 mg PO DAILY #10 tablet MDD 10 08/21/17 Nitrofurantoin Monohyd/M-Cryst [Macrobid -] 100 mg PO BID #14 capsule 08/26/17 Oxycodone HCl/Acetaminophen [Percocet 5-325 mg Tablet] 1 tab PO Q6H #20 tablet MDD 4 tabs 08/30/17 Albuterol 0.083% Nebulizer Prabha [Ventolin 0.083% Nebulizer Soln -] 1 neb NEB Q4H PRN #20 vial 02/15/18 Albuterol Sulfate Inhaler - [Ventolin Hfa Inhaler -] 1 - 2 inh PO Q4H PRN #1 inhaler 02/15/18 Prednisone [Deltasone] 20 mg PO DAILY #4 tablet 02/15/18 Family Disease History - Family Disease History Family Disease History: Diabetes: Father ( of [place]), Mother ( of uterine cancer), Heart Disease: Father, Respiratory: Sister (asthma) Review of Systems - Review of Systems Constitutional: denies: Chills, Fever Cardiovascular: reports: Shortness of Breath. denies: Chest Pain, Palpitations Respiratory: reports: Cough, SOB, SOB on Exertion. denies: Hemoptysis, Orthopnea, PND Gastrointestinal: denies: Abdominal Pain, Constipation, Diarrhea, Melena, Nausea , Rectal Bleeding, Vomiting Genitourinary: denies: Dysuria, Hematuria Neurological: reports: Dizziness. denies: Headache, Seizure, Syncope, Weakness Vital Signs: Vital Signs Temperature 98.8 F 02/22/18 07:16 Pulse Rate 76 02/22/18 07:16 Respiratory Rate 20 02/22/18 07:16 Blood Pressure 130/72 02/22/18 07:16 O2 Sat by Pulse Oximetry (%) 97 02/22/18 02:56 HENT: Yes: Atraumatic Neck: Yes: Supple Respiratory: Yes: Diminished Gastrointestinal: Yes: Normal Bowel Sounds, Soft. No: Tenderness Cardiovascular: Yes: Regular Rate and Rhythm JVD: No Carotid Bruit: No PMI: Non-Displaced Heart Sounds: Yes: S1, S2. No: Gallop Murmur: No: Systolic Murmur, Diastolic Murmur Edema: No - Other Data Labs, Other Data: CBC, BMP 02/22/18 06:30 02/22/18 06:30 INR, PTT INR 3.03 (0.82-1.09) H 02/22/18 06:30 Troponin, BNP 02/21/18 16:13 Troponin I < 0.02 Normal sinus rhythm with no ST-T abnormality Imaging - Results Chest X-ray: Report Reviewed (Unremarkable) Cat Scan: Report Reviewed (Head CT: tiny fracture of tip of nasal bone, cervical degenerative disc disease) EKG: Report Reviewed Problem List - Problems (1) Dizziness Code(s): R42 - DIZZINESS AND GIDDINESS (2) Shortness of breath Code(s): R06.02 - SHORTNESS OF BREATH (3) Cough Code(s): R05 - COUGH (4) Diastolic dysfunction without heart failure Code(s): I51.9 - HEART DISEASE, UNSPECIFIED (5) Dyspnea and respiratory abnormalities Code(s): R06.00 - DYSPNEA, UNSPECIFIED; R06.89 - OTHER ABNORMALITIES OF BREATHING Assessment/Plan 1. Dizziness, no LOC 2. Shortness of breath and cough 3. HTN 4. Hypercholesterolemia 5. Hypothyroidism 6. Bronchial asthma PLAN: 1. Continue Hyzaar 2. Continue Lipitor 3. Steroid taper and bronchodilators 4. Transthoracic echocardiography to assess LV/RV and valvular function 5. Thyroid replacement therapy Further plans are to follow Jarocho Veronica MD
--- NOTE | 2018-02-22 13:36 | EKG ---
Test Reason : Blood Pressure : / mmHG Vent. Rate : 090 BPM Atrial Rate : 090 BPM P-R Int : 120 ms QRS Dur : 076 ms QT Int : 358 ms P-R-T Axes : 063 037 027 degrees QTc Int : 437 ms NORMAL SINUS RHYTHM NORMAL ECG WHEN COMPARED WITH ECG OF 30-AUG-2017 11:43, PREMATURE SUPRAVENTRICULAR COMPLEXES ARE NO LONGER PRESENT Confirmed by MD Mannie, Rick ([id number]) on 02/22/2018 1:35:30 PM Referred By: Confirmed By:Rick Chand MD
--- NOTE | 2018-02-22 16:54 | PN ---
Progress Note, Physician - Current Medication List Current Medications: Active Medications Acetaminophen (Tylenol -) 650 mg PO Q6H PRN PRN Reason: FEVER Albuterol Sulfate (Ventolin 0.083% Nebulizer Soln -) 1 amp NEB Q4H PRN PRN Reason: ASTHMA Last Admin: 02/22/18 05:20 Dose: 1 amp Atorvastatin Calcium (Lipitor -) 20 mg PO HS [facility] Diazepam (Valium -) 5 mg PO DAILY [facility] Last Admin: 02/22/18 10:19 Dose: 5 mg HCTZ/Losartan Potassium (Hyzaar -) 2 tab PO DAILY [facility] Last Admin: 02/22/18 10:19 Dose: 2 tab Levetiracetam 500 mg/ (Levetiracetam 250 mg) 750 mg PO BID [facility] Last Admin: 02/22/18 10:18 Dose: 750 mg Levothyroxine Sodium (Synthroid -) 25 mcg PO DAILY@0700 [facility] Last Admin: 02/22/18 06:03 Dose: 25 mcg Montelukast Sodium (Singulair -) 10 mg PO [facility] Last Admin: 02/21/18 23:19 Dose: 10 mg Non-Formulary Medication (Linaclotide [Linzess]) 290 mcg PO DAILY [facility] Prednisone (Deltasone -) 20 mg PO DAILY [facility] Last Admin: 02/22/18 10:19 Dose: 20 mg - Objective Vital Signs: Vital Signs Temperature 98.4 F 02/22/18 13:05 Pulse Rate 85 02/22/18 13:05 Respiratory Rate 20 02/22/18 07:16 Blood Pressure 119/53 02/22/18 13:05 O2 Sat by Pulse Oximetry (%) 97 02/22/18 02:56 Constitutional: Yes: No Distress HENT: Yes: Atraumatic Neck: Yes: Supple Cardiovascular: Yes: Regular Rate and Rhythm Respiratory: Yes: Rhonchi Gastrointestinal: Yes: Normal Bowel Sounds Extremities: Yes: WNL Neurological: Yes: Alert, Oriented Labs: CBC, BMP 02/22/18 06:30 02/22/18 06:30 INR, PTT INR 3.03 (0.82-1.09) H 02/22/18 06:30 Problem List - Problems (1) Dizziness Assessment/Plan: resolved Code(s): R42 - DIZZINESS AND GIDDINESS (2) Shortness of breath Assessment/Plan: doing better Code(s): R06.02 - SHORTNESS OF BREATH (3) Hypothyroidism Code(s): E03.9 - HYPOTHYROIDISM, UNSPECIFIED Qualifiers: (4) Sinusitis Assessment/Plan: chronic need id input Code(s): J32.9 - CHRONIC SINUSITIS, UNSPECIFIED
[2018-02-22] MEDS: ALBUTEROL SO4 0.083% IH SOL 2.5 MG/3 ML VIAL.NEB. NEB PRN (17:54)
[2018-02-22] MEDS: MONTELUKAST NA 10 MG TABLET PO SCH (21:28)
[2018-02-22] MEDS: ATORVASTATIN CA 20 MG TABLET (FP) PO SCH (21:28)
[2018-02-23 03:12] LABS: URINE APPEARANCE CLEAR; URINE BILIRUBIN NEGATIVE (<2.0 mg/dL); URINE COLOR LTYELLOW; URINE GLUCOSE (UA) NEGATIVE (NEGATIVE); URINE KETONE NEGATIVE (NEGATIVE); URINE LEUK ESTERASE NEGATIVE (NEGATIVE); URINE NITRITE NEGATIVE (NEGATIVE); URINE PROTEIN NEGATIVE (NEGATIVE); URINE UROBILINOGEN NEGATIVE mg/dL (0.2-1.0)
[2018-02-23] MEDS: ALBUTEROL SO4 0.083% IH SOL 2.5 MG/3 ML VIAL.NEB. NEB PRN ×2 (05:49→10:57)
[2018-02-23] MEDS: LEVOTHYROXINE NA 25 MCG TABLET (FP) PO SCH (06:06)
[2018-02-23 09:43] LABS: INR 1.75 (0.82-1.09); PROTHROMBIN TIME (PATIENT) 19.8 SEC (9.7-13.0)
[2018-02-23] MEDS ORDERED: levETIRAcetam 250 MG TABLET (FP) PO ONE ×2 (10:05→20:47)
[2018-02-23] MEDS ORDERED: levETIRAcetam 500 MG TABLET (FP) PO ONE ×2 (10:06→20:48)
[2018-02-23] MEDS ORDERED: PT OWN MED DRAWER 7, Y5N ONE ×3 (10:07→20:49)
[2018-02-23] MEDS: LOSARTAN 50MG/HCTZ 12.5MG 1 TAB (FP) PO SCH (10:09)
[2018-02-23] MEDS: AZITHROMYCIN 250 MG TABLET PO SCH (10:10)
[2018-02-23] MEDS: predniSONE 20 MG TABLET (UD) PO SCH (10:10)
[2018-02-23] MEDS: diazePAM 5 MG TABLET PO SCH (10:10)
--- NOTE | 2018-02-23 12:13 | PN ---
Progress Note, Physician History of Present Illness: Shortness of breath, cough and dizziness improving, reports frontal and maxillary sinus congestion and tenderness with phlegm production. - Current Medication List Current Medications: Active Medications Acetaminophen (Tylenol -) 650 mg PO Q6H PRN PRN Reason: FEVER Albuterol Sulfate (Ventolin 0.083% Nebulizer Soln -) 1 amp NEB Q4H PRN PRN Reason: SHORT OF BREATH/WHEEZING Last Admin: 02/23/18 10:57 Dose: 1 amp Atorvastatin Calcium (Lipitor -) 20 mg PO [facility] Last Admin: 02/22/18 21:28 Dose: 20 mg Azithromycin (Zithromax -) 500 mg PO DAILY [facility] Last Admin: 02/23/18 10:10 Dose: 500 mg Diazepam (Valium -) 5 mg PO DAILY [facility] Last Admin: 02/23/18 10:10 Dose: 5 mg HCTZ/Losartan Potassium (Hyzaar -) 2 tab PO DAILY [facility] Last Admin: 02/23/18 10:09 Dose: 2 tab Levetiracetam 500 mg/ (Levetiracetam 250 mg) 750 mg PO BID [facility] Last Admin: 02/23/18 10:10 Dose: 750 mg Levothyroxine Sodium (Synthroid -) 25 mcg PO DAILY@0700 [facility] Last Admin: 02/23/18 06:06 Dose: 25 mcg Montelukast Sodium (Singulair -) 10 mg PO [facility] Last Admin: 02/22/18 21:28 Dose: 10 mg Non-Formulary Medication (Linaclotide [Linzess]) 290 mcg PO DAILY [facility] Prednisone (Deltasone -) 20 mg PO DAILY [facility] Last Admin: 02/23/18 10:10 Dose: 20 mg - Objective Vital Signs: Vital Signs Temperature 97.8 F 02/23/18 06:00 Pulse Rate 72 02/23/18 06:00 Respiratory Rate 20 02/23/18 06:00 Blood Pressure 100/60 02/23/18 06:00 O2 Sat by Pulse Oximetry (%) 99 02/22/18 20:39 Constitutional: Yes: No Distress, Calm HENT: Yes: Nasal Congestion Neck: Yes: Supple Cardiovascular: Yes: Regular Rate and Rhythm, Murmur (2/6 SM) Respiratory: Yes: Regular, Cough, Diminished, On Nasal O2, Wheezes Gastrointestinal: Yes: Normal Bowel Sounds, Soft Edema: No Labs: CBC, BMP 02/22/18 06:30 02/22/18 06:30 INR, PTT INR 1.75 (0.82-1.09) H D 02/23/18 08:00 Problem List - Problems (1) Dizziness Code(s): R42 - DIZZINESS AND GIDDINESS (2) Shortness of breath Code(s): R06.02 - SHORTNESS OF BREATH (3) Acute hypoxemic respiratory failure Code(s): J96.01 - ACUTE RESPIRATORY FAILURE WITH HYPOXIA (4) Asthma exacerbation Code(s): J45.901 - UNSPECIFIED ASTHMA WITH (ACUTE) EXACERBATION Qualifiers: Asthma severity: mild Asthma persistence: unspecified Qualified Code(s): J45.901 - Unspecified asthma with (acute) exacerbation (5) Cough Code(s): R05 - COUGH (6) Diastolic dysfunction without heart failure Code(s): I51.9 - HEART DISEASE, UNSPECIFIED (7) Hypothyroidism Code(s): E03.9 - HYPOTHYROIDISM, UNSPECIFIED Qualifiers: Hypothyroidism type: unspecified Qualified Code(s): E03.9 - Hypothyroidism , unspecified (8) Moderate aortic stenosis Code(s): I35.0 - NONRHEUMATIC AORTIC (VALVE) STENOSIS (9) Type 2 diabetes mellitus Code(s): E11.9 - TYPE 2 DIABETES MELLITUS WITHOUT COMPLICATIONS Qualifiers: Diabetes mellitus termite technician insulin use: without alf use Diabetes mellitus complication status: without complication Qualified Code(s): E11.9 - Type 2 diabetes mellitus without complications (10) Hyperlipemia Code(s): E78.5 - HYPERLIPIDEMIA, UNSPECIFIED Qualifiers: Hyperlipidemia type: pure hypercholesterolemia Qualified Code(s): E78.00 - Pure hypercholesterolemia, unspecified (11) Hypertension Code(s): I10 - ESSENTIAL (PRIMARY) HYPERTENSION Qualifiers: Hypertension type: essential hypertension Qualified Code(s): I10 - Essential (primary) hypertension (12) Seizure disorder Code(s): G40.909 - EPILEPSY, UNSP, NOT INTRACTABLE, WITHOUT STATUS EPILEPTICUS (13) Sinusitis Code(s): J32.9 - CHRONIC SINUSITIS, UNSPECIFIED Qualifiers: Sinusitis location: maxillary Chronicity: unspecified Qualified Code(s): J32.0 - Chronic maxillary sinusitis Assessment/Plan 04/07/2017 Echo: Normal LV size and fxn, mild MARLY, mod , mild MR, TR RVSP 40- 50 mmHg 06/13/2017 Nuclear myocardial perfusion imaging shows no evidence of ischemia. LVEF 78% 1. Maxillary sinusitis 2. Shortness of breath and cough referable to bronchial asthma 3. HTN 4. Hypercholesterolemia 5. Hypothyroidism 6. Diastolic dysfunction with moderate aortic stenosis and pulm HTN 7. 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 Continue Hyzaar 2 qd 2. Continue Lipitor 20 qhs 3. Oral steroid taper, Singulair, empiric abx course and bronchodilators, resume Flonase bid 4. F/u transthoracic echocardiography to assess LV/RV and valvular function 5. Thyroid replacement therapy 6. Resume Coumadin per INR with GI protection
--- NOTE | 2018-02-23 13:09 | CON.ID ---
Consult Consult Specialty:: infectious diseases Reason for Consultation:: sinusitis - History of Present Illness Chief Complaint: pain in the rt side of the sinuses with congestion and headache History of Present Illness: 77 year old female t with underlying history of HTN, DVT both lower extremity and bronchial asthma admitted with nasal congestion, shortness of breath, cough and dizziness. She almost fell, but did not and no history of syncope. She denies chest pain or palpitations. She denies paroxysmal nocturnal dyspnea or orthopnea. She denies nausea, vomiting, diarrhea or abdominal pain. She denies fever or chills. She denies headache. Her symptoms have been progressive over past 1 week. 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: CVA, Seizure ( last seizure >10yrs ago), Vertigo Cardio/Vascular: Yes: HTN Pulmonary: Yes: Asthma Gastrointestinal: Yes: Gastritis, Peptic Ulcer Disease Musculoskeletal: Yes: Other (arthritis (type not specificed)) ENT: Yes: Sinusitis Endocrine: Yes: Hypothyroidism Additional Medical History: DVTs, HPL - Past Surgical History Past Surgical History: Yes: Breast Biopsy, Hysterectomy - Alcohol/Substance Use Hx Alcohol Use: No History of Substance Use: reports: None - Smoking History Smoking history: Never smoked Have you smoked in the past 12 months: No Aproximately how many cigarettes per day: 0 - Social History Occupation: retired 20 yrs ago History of Recent Travel: Yes (traveled from [place]) Home Medications - Allergies Allergies/Adverse Reactions: Allergies Allergy/AdvReac Type Severity Reaction Status Date / Time Penicillins Allergy Swelling Verified 02/21/18 14:51 - Home Medications Home Medications: Ambulatory Orders Albuterol Sulfate Inhaler - [Ventolin HFA Inhaler -] 1 - 2 inh PO Q4H 04/15/17 Budesonide/Formeterol Fumarate [SYMBICORT 160/4.5mcg -] 2 inh PO BID 04/15/17 Cholecalciferol (Vitamin D3) [Vitamin D3] 10,000 unit PO WEEKLY 04/15/17 Fluticasone Prop 0.05% Nasal [Flonase -] 1 - 2 spray NS BID 04/15/17 Levothyroxine [Synthroid -] 25 mcg PO DAILY 04/15/17 Linaclotide [Linzess] 290 mcg PO DAILY 04/15/17 Losartan/Hydrochlorothiazide [Losartan-Hctz 100-25 mg Tab] 1 each PO DAILY 04/15 Montelukast Na [Singulair -] 10 mg PO HS 04/15/17 Pantoprazole Sodium [Protonix -] 40 mg PO DAILY 04/15/17 Warfarin Sodium [Coumadin] 2.5 mg PO ASDIR 04/15/17 levETIRAcetam [Keppra -] 750 mg PO BID 04/15/17 Salmeterol/Fluticasone [Advair 250Mcg/50Mcg -] 1 inh PO BID 05/02/17 Nitroglycerin 0.4 mg SL PRN 06/13/17 Simvastatin 40 mg PO HS 06/13/17 Albuterol 0.083% Nebulizer Prabha [Ventolin 0.083% Nebulizer Soln -] 1 amp NEB Q6H PRN #0 amp 06/15/17 Diazepam [Valium] 5 mg PO DAILY #10 tablet MDD 10 08/21/17 Nitrofurantoin Monohyd/M-Cryst [Macrobid -] 100 mg PO BID #14 capsule 08/26/17 Oxycodone HCl/Acetaminophen [Percocet 5-325 mg Tablet] 1 tab PO Q6H #20 tablet MDD 4 tabs 08/30/17 Albuterol 0.083% Nebulizer Prabha [Ventolin 0.083% Nebulizer Soln -] 1 neb NEB Q4H PRN #20 vial 02/15/18 Albuterol Sulfate Inhaler - [Ventolin HFA Inhaler -] 1 - 2 inh PO Q4H PRN #1 inhaler 02/15/18 Prednisone [Deltasone] 20 mg PO DAILY #4 tablet 02/15/18 Family Disease History - Family Disease History Family Disease History: Diabetes: Father ( of [place]), Mother ( of uterine cancer), Heart Disease: Father, Respiratory: Sister (asthma) Review of Systems - Review of Systems Constitutional: reports: No Symptoms Eyes: reports: No Symptoms HENT: reports: Nasal Congestion, Other Neck: reports: No Symptoms Cardiovascular: reports: No Symptoms Respiratory: reports: No Symptoms Gastrointestinal: reports: No Symptoms Genitourinary: reports: No Symptoms Musculoskeletal: reports: No Symptoms Integumentary: reports: No Symptoms Neurological: reports: No Symptoms Endocrine: reports: No Symptoms Hematology/Lymphatic: reports: No Symptoms Psychiatric: reports: No Symptoms Physical Exam Vital Signs: Vital Signs Temperature 97.8 F 02/23/18 06:00 Pulse Rate 72 02/23/18 06:00 Respiratory Rate 20 02/23/18 06:00 Blood Pressure 100/60 02/23/18 06:00 O2 Sat by Pulse Oximetry (%) 99 02/22/18 20:39 Constitutional: Yes: Well Nourished, Calm, Mild Distress Eyes: Yes: Conjunctiva Clear HENT: Yes: Atraumatic Neck: Yes: Supple, Trachea Midline Cardiovascular: Yes: Regular Rate and Rhythm, Murmur Respiratory: Yes: Regular, CTA Bilaterally Gastrointestinal: Yes: Normal Bowel Sounds, Soft Musculoskeletal: Yes: WNL Extremities: Yes: WNL Neurological: Yes: Alert, Oriented Psychiatric: Yes: Alert, Oriented Labs: CBC, BMP 02/22/18 06:30 02/22/18 06:30 Imaging - Results Chest X-ray: Report Reviewed, Image Reviewed Cat Scan: Report Reviewed, Image Reviewed Assessment/Plan Problem List - Problems (1) Dizziness Code(s): R42 - DIZZINESS AND GIDDINESS (2) Shortness of breath Code(s): R06.02 - SHORTNESS OF BREATH (3) Acute hypoxemic respiratory failure Code(s): J96.01 - ACUTE RESPIRATORY FAILURE WITH HYPOXIA (4) Asthma exacerbation Code(s): J45.901 - UNSPECIFIED ASTHMA WITH (ACUTE) EXACERBATION Qualifiers: Asthma severity: mild Asthma persistence: unspecified Qualified Code(s): J45.901 - Unspecified asthma with (acute) exacerbation (5) Cough Code(s): R05 - COUGH (6) Diastolic dysfunction without heart failure Code(s): I51.9 - HEART DISEASE, UNSPECIFIED (7) Hypothyroidism Code(s): E03.9 - HYPOTHYROIDISM, UNSPECIFIED Qualifiers: Hypothyroidism type: unspecified Qualified Code(s): E03.9 - Hypothyroidism , unspecified (8) Moderate aortic stenosis Code(s): I35.0 - NONRHEUMATIC AORTIC (VALVE) STENOSIS (9) Type 2 diabetes mellitus Code(s): E11.9 - TYPE 2 DIABETES MELLITUS WITHOUT COMPLICATIONS Qualifiers: Diabetes mellitus retirement insulin use: without manager terminal use Diabetes mellitus complication status: without complication Qualified Code(s): E11.9 - Type 2 diabetes mellitus without complications (10) Hyperlipemia Code(s): E78.5 - HYPERLIPIDEMIA, UNSPECIFIED Qualifiers: Hyperlipidemia type: pure hypercholesterolemia Qualified Code(s): E78.00 - Pure hypercholesterolemia, unspecified (11) Hypertension Code(s): I10 - ESSENTIAL (PRIMARY) HYPERTENSION Qualifiers: Hypertension type: essential hypertension Qualified Code(s): I10 - Essential (primary) hypertension (12) Seizure disorder Code(s): G40.909 - EPILEPSY, UNSP, NOT INTRACTABLE, WITHOUT STATUS EPILEPTICUS (13) Sinusitis Code(s): J32.9 - CHRONIC SINUSITIS, UNSPECIFIED Qualifiers: Sinusitis location: maxillary Chronicity: unspecified Qualified Code(s): J32.0 - Chronic maxillary sinusitis after looking at the studies and patients symptoms i think this problem of maxillary sinusitis is chronic patient has receved bactrim and zithromax plan' will continue zithro for couple of days will not give any otehr abx at this time rest continue as per primary and cardiology
--- NOTE | 2018-02-23 13:29 | PN ---
Progress Note, Physician History of Present Illness: stable no new events still with pain - Current Medication List Current Medications: Active Medications Acetaminophen (Tylenol -) 650 mg PO Q6H PRN PRN Reason: FEVER Albuterol Sulfate (Ventolin 0.083% Nebulizer Soln -) 1 amp NEB Q4H PRN PRN Reason: SHORT OF BREATH/WHEEZING Last Admin: 02/23/18 10:57 Dose: 1 amp Atorvastatin Calcium (Lipitor -) 20 mg PO [facility] Last Admin: 02/22/18 21:28 Dose: 20 mg Azithromycin (Zithromax -) 500 mg PO DAILY [facility] Last Admin: 02/23/18 10:10 Dose: 500 mg Diazepam (Valium -) 5 mg PO DAILY [facility] Last Admin: 02/23/18 10:10 Dose: 5 mg Fluticasone Propionate (Flonase -) 1 spray NS BID [facility] HCTZ/Losartan Potassium (Hyzaar -) 2 tab PO DAILY [facility] Last Admin: 02/23/18 10:09 Dose: 2 tab Levetiracetam 500 mg/ (Levetiracetam 250 mg) 750 mg PO BID [facility] Last Admin: 02/23/18 10:10 Dose: 750 mg Levothyroxine Sodium (Synthroid -) 25 mcg PO DAILY@0700 [facility] Last Admin: 02/23/18 06:06 Dose: 25 mcg Montelukast Sodium (Singulair -) 10 mg PO [facility] Last Admin: 02/22/18 21:28 Dose: 10 mg Non-Formulary Medication (Linaclotide [Linzess]) 290 mcg PO DAILY [facility] Prednisone (Deltasone -) 20 mg PO DAILY [facility] Last Admin: 02/23/18 10:10 Dose: 20 mg Warfarin Sodium (Coumadin -) 1 mg PO DAILY@1800 [facility] - Objective Vital Signs: Vital Signs Temperature 97.8 F 02/23/18 06:00 Pulse Rate 72 02/23/18 06:00 Respiratory Rate 20 02/23/18 06:00 Blood Pressure 100/60 02/23/18 06:00 O2 Sat by Pulse Oximetry (%) 99 02/22/18 20:39 Constitutional: Yes: No Distress, Calm Cardiovascular: Yes: S1, S2 Respiratory: Yes: Regular, CTA Bilaterally Gastrointestinal: Yes: Normal Bowel Sounds, Soft Musculoskeletal: Yes: WNL Extremities: Yes: WNL Neurological: Yes: Alert, Oriented Psychiatric: Yes: Alert, Oriented Labs: CBC, BMP 02/22/18 06:30 02/22/18 06:30 INR, PTT INR 1.75 (0.82-1.09) H D 02/23/18 08:00 Assessment/Plan Problem List - Problems (1) Dizziness Code(s): R42 - DIZZINESS AND GIDDINESS (2) Shortness of breath Code(s): R06.02 - SHORTNESS OF BREATH (3) Acute hypoxemic respiratory failure Code(s): J96.01 - ACUTE RESPIRATORY FAILURE WITH HYPOXIA (4) Asthma exacerbation Code(s): J45.901 - UNSPECIFIED ASTHMA WITH (ACUTE) EXACERBATION Qualifiers: Asthma severity: mild Asthma persistence: unspecified Qualified Code(s): J45.901 - Unspecified asthma with (acute) exacerbation (5) Cough Code(s): R05 - COUGH (6) Diastolic dysfunction without heart failure Code(s): I51.9 - HEART DISEASE, UNSPECIFIED (7) Hypothyroidism Code(s): E03.9 - HYPOTHYROIDISM, UNSPECIFIED Qualifiers: Hypothyroidism type: unspecified Qualified Code(s): E03.9 - Hypothyroidism , unspecified (8) Moderate aortic stenosis Code(s): I35.0 - NONRHEUMATIC AORTIC (VALVE) STENOSIS (9) Type 2 diabetes mellitus Code(s): E11.9 - TYPE 2 DIABETES MELLITUS WITHOUT COMPLICATIONS Qualifiers: Diabetes mellitus 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: without bed bug exterminator use Diabetes mellitus complication status: without complication Qualified Code(s): E11.9 - Type 2 diabetes mellitus without complications (10) Hyperlipemia Code(s): E78.5 - HYPERLIPIDEMIA, UNSPECIFIED Qualifiers: Hyperlipidemia type: pure hypercholesterolemia Qualified Code(s): E78.00 - Pure hypercholesterolemia, unspecified (11) Hypertension Code(s): I10 - ESSENTIAL (PRIMARY) HYPERTENSION Qualifiers: Hypertension type: essential hypertension Qualified Code(s): I10 - Essential (primary) hypertension (12) Seizure disorder Code(s): G40.909 - EPILEPSY, UNSP, NOT INTRACTABLE, WITHOUT STATUS EPILEPTICUS (13) Sinusitis Code(s): J32.9 - CHRONIC SINUSITIS, UNSPECIFIED Qualifiers: Sinusitis location: maxillary Chronicity: unspecified Qualified Code(s): J32.0 - Chronic maxillary sinusitis after looking at the studies and patients symptoms i think this problem of maxillary sinusitis is chronic patient has receved bactrim and zithromax plan' continue zithro rest continue current mgmt patient stable
[2018-02-23] MEDS: FLUTICASONE PROP 0.05% 16 GM NASAL SPRAY NS SCH ×2 (14:36→21:01)
[2018-02-23] MEDS ORDERED: WARFARIN NA 1 MG TABLET (FP) PO SCH (18:00)
--- NOTE | 2018-02-23 18:24 | PN ---
Progress Note, Physician History of Present Illness: feeling good - Current Medication List Current Medications: Active Medications Acetaminophen (Tylenol -) 650 mg PO Q6H PRN PRN Reason: FEVER Albuterol Sulfate (Ventolin 0.083% Nebulizer Soln -) 1 amp NEB Q4H PRN PRN Reason: SHORT OF BREATH/WHEEZING Last Admin: 02/23/18 10:57 Dose: 1 amp Atorvastatin Calcium (Lipitor -) 20 mg PO [facility] Last Admin: 02/22/18 21:28 Dose: 20 mg Azithromycin (Zithromax -) 500 mg PO DAILY [facility] Last Admin: 02/23/18 10:10 Dose: 500 mg Diazepam (Valium -) 5 mg PO DAILY [facility] Last Admin: 02/23/18 10:10 Dose: 5 mg Fluticasone Propionate (Flonase -) 1 spray NS BID [facility] Last Admin: 02/23/18 14:36 Dose: 1 inhaler HCTZ/Losartan Potassium (Hyzaar -) 2 tab PO DAILY [facility] Last Admin: 02/23/18 10:09 Dose: 2 tab Levetiracetam 500 mg/ (Levetiracetam 250 mg) 750 mg PO BID [facility] Last Admin: 02/23/18 10:10 Dose: 750 mg Levothyroxine Sodium (Synthroid -) 25 mcg PO DAILY@0700 [facility] Last Admin: 02/23/18 06:06 Dose: 25 mcg Montelukast Sodium (Singulair -) 10 mg PO [facility] Last Admin: 02/22/18 21:28 Dose: 10 mg Non-Formulary Medication (Linaclotide [Linzess]) 290 mcg PO DAILY [facility] Prednisone (Deltasone -) 10 mg PO DAILY [facility] Warfarin Sodium (Coumadin -) 2.5 mg PO DAILY@1800 [facility] - Objective Vital Signs: Vital Signs Temperature 98.4 F 02/23/18 14:36 Pulse Rate 64 02/23/18 14:36 Respiratory Rate 20 02/23/18 09:00 Blood Pressure 111/61 02/23/18 14:36 O2 Sat by Pulse Oximetry (%) 99 02/23/18 09:00 Constitutional: Yes: No Distress HENT: Yes: Atraumatic Neck: Yes: Supple Cardiovascular: Yes: Regular Rate and Rhythm Respiratory: Yes: Rhonchi Gastrointestinal: Yes: Normal Bowel Sounds Extremities: Yes: WNL Wound/Incision: Yes: Other Neurological: Yes: Alert Labs: CBC, BMP 02/22/18 06:30 02/22/18 06:30 INR, PTT INR 1.75 (0.82-1.09) H D 02/23/18 08:00 Problem List - Problems (1) Dizziness Assessment/Plan: resolved Code(s): R42 - DIZZINESS AND GIDDINESS (2) Shortness of breath Assessment/Plan: doing better on inhalers Code(s): R06.02 - SHORTNESS OF BREATH (3) Hypothyroidism Code(s): E03.9 - HYPOTHYROIDISM, UNSPECIFIED Qualifiers: Hypothyroidism type: unspecified Qualified Code(s): E03.9 - Hypothyroidism , unspecified (4) Sinusitis Assessment/Plan: chronic on po abx Code(s): J32.9 - CHRONIC SINUSITIS, UNSPECIFIED Qualifiers: Sinusitis location: maxillary Chronicity: unspecified Qualified Code(s): J32.0 - Chronic maxillary sinusitis
[2018-02-23] MEDS: MONTELUKAST NA 10 MG TABLET PO SCH (21:01)
[2018-02-23] MEDS: ATORVASTATIN CA 20 MG TABLET (FP) PO SCH (21:01)
[2018-02-24] MEDS: LEVOTHYROXINE NA 25 MCG TABLET (FP) PO SCH (06:14)
[2018-02-24] MEDS: ALBUTEROL SO4 0.083% IH SOL 2.5 MG/3 ML VIAL.NEB. NEB PRN ×2 (07:30→17:14)
[2018-02-24 08:42] VITALS: TEMP 98.7
[2018-02-24] MEDS ORDERED: levETIRAcetam 250 MG TABLET (FP) PO ONE (09:31)
[2018-02-24] MEDS ORDERED: levETIRAcetam 500 MG TABLET (FP) PO ONE (09:31)
[2018-02-24] MEDS ORDERED: PT OWN MED DRAWER 7, Y5N ONE ×2 (09:32→17:27)
[2018-02-24] MEDS: LOSARTAN 50MG/HCTZ 12.5MG 1 TAB (FP) PO SCH (09:36)
[2018-02-24] MEDS: AZITHROMYCIN 250 MG TABLET PO SCH (09:36)
[2018-02-24] MEDS: diazePAM 5 MG TABLET PO SCH (09:36)
[2018-02-24] MEDS: FLUTICASONE PROP 0.05% 16 GM NASAL SPRAY NS SCH (09:36)
[2018-02-24] MEDS ORDERED: predniSONE 10 MG TABLET (UD) PO SCH (10:00)
--- NOTE | 2018-02-24 10:05 | PN ---
Progress Note, Physician History of Present Illness: Shortness of breath, cough and dizziness improving, reports frontal and maxillary sinus congestion and tenderness with phlegm production. - Current Medication List Current Medications: Active Medications Acetaminophen (Tylenol -) 650 mg PO Q6H PRN PRN Reason: FEVER Albuterol Sulfate (Ventolin 0.083% Nebulizer Soln -) 1 amp NEB Q4H PRN PRN Reason: SHORT OF BREATH/WHEEZING Last Admin: 02/24/18 07:30 Dose: 1 amp Atorvastatin Calcium (Lipitor -) 20 mg PO [facility] Last Admin: 02/23/18 21:01 Dose: 20 mg Azithromycin (Zithromax -) 500 mg PO DAILY [facility] Last Admin: 02/24/18 09:36 Dose: 500 mg Diazepam (Valium -) 5 mg PO DAILY [facility] Last Admin: 02/24/18 09:36 Dose: 5 mg Fluticasone Propionate (Flonase -) 1 spray NS BID [facility] Last Admin: 02/24/18 09:36 Dose: 1 spray HCTZ/Losartan Potassium (Hyzaar -) 2 tab PO DAILY [facility] Last Admin: 02/24/18 09:36 Dose: 2 tab Levetiracetam 500 mg/ (Levetiracetam 250 mg) 750 mg PO BID [facility] Last Admin: 02/24/18 09:35 Dose: 750 mg Levothyroxine Sodium (Synthroid -) 25 mcg PO DAILY@0700 [facility] Last Admin: 02/24/18 06:14 Dose: 25 mcg Montelukast Sodium (Singulair -) 10 mg PO [facility] Last Admin: 02/23/18 21:01 Dose: 10 mg Non-Formulary Medication (Linaclotide [Linzess]) 290 mcg PO DAILY [facility] Prednisone (Deltasone -) 10 mg PO DAILY [facility] Last Admin: 02/24/18 09:36 Dose: 10 mg Warfarin Sodium (Coumadin -) 2.5 mg PO DAILY@1800 [facility] - Objective Vital Signs: Vital Signs Temperature 98.7 F 02/24/18 08:42 Pulse Rate 73 02/24/18 08:42 Respiratory Rate 20 02/24/18 08:42 Blood Pressure 115/72 02/24/18 08:42 O2 Sat by Pulse Oximetry (%) 98 02/23/18 21:00 Constitutional: Yes: No Distress, Calm HENT: Yes: Nasal Congestion Cardiovascular: Yes: Regular Rate and Rhythm, Murmur (2/6 SM) Respiratory: Yes: Wheezes Gastrointestinal: Yes: Normal Bowel Sounds, Soft Edema: No Labs: CBC, BMP 02/22/18 06:30 02/22/18 06:30 INR, PTT INR 1.75 (0.82-1.09) H D 02/23/18 08:00 Problem List - Problems (1) Shortness of breath Code(s): R06.02 - SHORTNESS OF BREATH (2) Acute hypoxemic respiratory failure Code(s): J96.01 - ACUTE RESPIRATORY FAILURE WITH HYPOXIA (3) Asthma exacerbation Code(s): J45.901 - UNSPECIFIED ASTHMA WITH (ACUTE) EXACERBATION Qualifiers: Asthma severity: mild Asthma persistence: unspecified Qualified Code(s): J45.901 - Unspecified asthma with (acute) exacerbation (4) Cough Code(s): R05 - COUGH (5) Diastolic dysfunction without heart failure Code(s): I51.9 - HEART DISEASE, UNSPECIFIED (6) Hypothyroidism Code(s): E03.9 - HYPOTHYROIDISM, UNSPECIFIED Qualifiers: Hypothyroidism type: unspecified Qualified Code(s): E03.9 - Hypothyroidism , unspecified (7) Moderate aortic stenosis Code(s): I35.0 - NONRHEUMATIC AORTIC (VALVE) STENOSIS (8) Type 2 diabetes mellitus Code(s): E11.9 - TYPE 2 DIABETES MELLITUS WITHOUT COMPLICATIONS Qualifiers: Diabetes mellitus terminal manager insulin use: without longterm use Diabetes mellitus complication status: without complication Qualified Code(s): E11.9 - Type 2 diabetes mellitus without complications (9) Hyperlipemia Code(s): E78.5 - HYPERLIPIDEMIA, UNSPECIFIED Qualifiers: Hyperlipidemia type: pure hypercholesterolemia Qualified Code(s): E78.00 - Pure hypercholesterolemia, unspecified (10) Hypertension Code(s): I10 - ESSENTIAL (PRIMARY) HYPERTENSION Qualifiers: Hypertension type: essential hypertension Qualified Code(s): I10 - Essential (primary) hypertension (11) Seizure disorder Code(s): G40.909 - EPILEPSY, UNSP, NOT INTRACTABLE, WITHOUT STATUS EPILEPTICUS (12) Sinusitis Code(s): J32.9 - CHRONIC SINUSITIS, UNSPECIFIED Qualifiers: Sinusitis location: maxillary Chronicity: unspecified Qualified Code(s): J32.0 - Chronic maxillary sinusitis Assessment/Plan 04/07/2017 Echo: Normal LV size and fxn, mild MARLY, mod , mild MR, TR RVSP 40- 50 mmHg 06/13/2017 Nuclear myocardial perfusion imaging shows no evidence of ischemia. LVEF 78% 1. Maxillary sinusitis 2. Shortness of breath and cough referable to bronchial asthma 3. HTN 4. Hypercholesterolemia 5. Hypothyroidism 6. Diastolic dysfunction with moderate aortic stenosis and pulm HTN 7. 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 Continue Hyzaar 2 qd 2. Continue Lipitor 20 qhs 3. Oral steroid taper, Singulair, empiric abx course and bronchodilators, resumed Flonase bid 4. F/u transthoracic echocardiography to assess LV/RV and valvular function 5. Thyroid replacement therapy 6. Continue Coumadin per INR with GI protection
[2018-02-24 14:38] VITALS: BP 115/63; PULSE 85
--- NOTE | 2018-02-24 15:25 | PN ---
Progress Note, Physician History of Present Illness: still c/o of tenderness says she had some dried blood could not see it - Current Medication List Current Medications: Active Medications Acetaminophen (Tylenol -) 650 mg PO Q6H PRN PRN Reason: FEVER Albuterol Sulfate (Ventolin 0.083% Nebulizer Soln -) 1 amp NEB Q4H PRN PRN Reason: SHORT OF BREATH/WHEEZING Last Admin: 02/24/18 07:30 Dose: 1 amp Atorvastatin Calcium (Lipitor -) 20 mg PO [facility] Last Admin: 02/23/18 21:01 Dose: 20 mg Azithromycin (Zithromax -) 500 mg PO DAILY [facility] Last Admin: 02/24/18 09:36 Dose: 500 mg Diazepam (Valium -) 5 mg PO DAILY [facility] Last Admin: 02/24/18 09:36 Dose: 5 mg Fluticasone Propionate (Flonase -) 1 spray NS BID [facility] Last Admin: 02/24/18 09:36 Dose: 1 spray HCTZ/Losartan Potassium (Hyzaar -) 2 tab PO DAILY [facility] Last Admin: 02/24/18 09:36 Dose: 2 tab Levetiracetam 500 mg/ (Levetiracetam 250 mg) 750 mg PO BID [facility] Last Admin: 02/24/18 09:35 Dose: 750 mg Levothyroxine Sodium (Synthroid -) 25 mcg PO DAILY@0700 [facility] Last Admin: 02/24/18 06:14 Dose: 25 mcg Montelukast Sodium (Singulair -) 10 mg PO [facility] Last Admin: 02/23/18 21:01 Dose: 10 mg Non-Formulary Medication (Linaclotide [Linzess]) 290 mcg PO DAILY [facility] Prednisone (Deltasone -) 10 mg PO DAILY [facility] Last Admin: 02/24/18 09:36 Dose: 10 mg Warfarin Sodium (Coumadin -) 2.5 mg PO DAILY@1800 [facility] - Objective Vital Signs: Vital Signs Temperature 98.7 F 02/24/18 14:36 Pulse Rate 85 02/24/18 14:36 Respiratory Rate 20 02/24/18 09:00 Blood Pressure 115/63 02/24/18 14:36 O2 Sat by Pulse Oximetry (%) 98 02/24/18 09:00 Constitutional: Yes: No Distress, Calm Cardiovascular: Yes: Regular Rate and Rhythm Respiratory: Yes: Regular, CTA Bilaterally Gastrointestinal: Yes: Normal Bowel Sounds, Soft Musculoskeletal: Yes: WNL Extremities: Yes: WNL Neurological: Yes: Alert, Oriented Psychiatric: Yes: Alert, Oriented Labs: CBC, BMP 02/22/18 06:30 02/22/18 06:30 INR, PTT INR 1.75 (0.82-1.09) H D 02/23/18 08:00 Assessment/Plan Problem List - Problems (1) Dizziness Code(s): R42 - DIZZINESS AND GIDDINESS (2) Shortness of breath Code(s): R06.02 - SHORTNESS OF BREATH (3) Acute hypoxemic respiratory failure Code(s): J96.01 - ACUTE RESPIRATORY FAILURE WITH HYPOXIA (4) Asthma exacerbation Code(s): J45.901 - UNSPECIFIED ASTHMA WITH (ACUTE) EXACERBATION Qualifiers: Asthma severity: mild Asthma persistence: unspecified Qualified Code(s): J45.901 - Unspecified asthma with (acute) exacerbation (5) Cough Code(s): R05 - COUGH (6) Diastolic dysfunction without heart failure Code(s): I51.9 - HEART DISEASE, UNSPECIFIED (7) Hypothyroidism Code(s): E03.9 - HYPOTHYROIDISM, UNSPECIFIED Qualifiers: Hypothyroidism type: unspecified Qualified Code(s): E03.9 - Hypothyroidism , unspecified (8) Moderate aortic stenosis Code(s): I35.0 - NONRHEUMATIC AORTIC (VALVE) STENOSIS (9) Type 2 diabetes mellitus Code(s): E11.9 - TYPE 2 DIABETES MELLITUS WITHOUT COMPLICATIONS Qualifiers: 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: without residential use Diabetes mellitus complication status: without complication Qualified Code(s): E11.9 - Type 2 diabetes mellitus without complications (10) Hyperlipemia Code(s): E78.5 - HYPERLIPIDEMIA, UNSPECIFIED Qualifiers: Hyperlipidemia type: pure hypercholesterolemia Qualified Code(s): E78.00 - Pure hypercholesterolemia, unspecified (11) Hypertension Code(s): I10 - ESSENTIAL (PRIMARY) HYPERTENSION Qualifiers: Hypertension type: essential hypertension Qualified Code(s): I10 - Essential (primary) hypertension (12) Seizure disorder Code(s): G40.909 - EPILEPSY, UNSP, NOT INTRACTABLE, WITHOUT STATUS EPILEPTICUS (13) Sinusitis Code(s): J32.9 - CHRONIC SINUSITIS, UNSPECIFIED Qualifiers: Sinusitis location: maxillary Chronicity: unspecified Qualified Code(s): J32.0 - Chronic maxillary sinusitis after looking at the studies and patients symptoms i think this problem of maxillary sinusitis is chronic patient has receved bactrim and zithromax plan' continue zithro rest continue current mgmt patient stable stop zithro after 5 days
[2018-02-24] MEDS ORDERED: WARFARIN NA 2.5 MG TABLET (FP) PO SCH (18:00)
--- NOTE | 2018-02-24 18:02 | DS ---
Physical Examination Vital Signs: Vital Signs Temperature 98.7 F 02/24/18 14:36 Pulse Rate 85 02/24/18 14:36 Respiratory Rate 20 02/24/18 09:00 Blood Pressure 115/63 02/24/18 14:36 O2 Sat by Pulse Oximetry (%) 98 02/24/18 09:00 Constitutional: Yes: No Distress HENT: Yes: Atraumatic Cardiovascular: Yes: Regular Rate and Rhythm Respiratory: Yes: CTA Bilaterally Gastrointestinal: Yes: Normal Bowel Sounds Extremities: Yes: WNL Edema: No Peripheral Pulses WNL: Yes Neurological: Yes: Alert, Oriented Labs: CBC, BMP 02/22/18 06:30 02/22/18 06:30 Discharge Summary Reason For Visit: SHORTNESS OF BREATH Current Active Problems Dizziness (Acute) Shortness of breath (Acute) Condition: Stable - Instructions Referrals: Amelai Qureshi MD [Staff Physician] - - Home Medications Comprehensive Discharge Medication List: Ambulatory Orders Albuterol Sulfate Inhaler - [Ventolin HFA Inhaler -] 1 - 2 inh PO Q4H 04/15/17 Budesonide/Formeterol Fumarate [SYMBICORT 160/4.5mcg -] 2 inh PO BID 04/15/17 Cholecalciferol (Vitamin D3) [Vitamin D3] 10,000 unit PO WEEKLY 04/15/17 Fluticasone Prop 0.05% Nasal [Flonase -] 1 - 2 spray NS BID 04/15/17 Levothyroxine [Synthroid -] 25 mcg PO DAILY 04/15/17 Linaclotide [Linzess] 290 mcg PO DAILY 04/15/17 Losartan/Hydrochlorothiazide [Losartan-Hctz 100-25 mg Tab] 1 each PO DAILY 04/15 Montelukast Na [Singulair -] 10 mg PO HS 04/15/17 Pantoprazole Sodium [Protonix -] 40 mg PO DAILY 04/15/17 Warfarin Sodium [Coumadin] 2.5 mg PO ASDIR 04/15/17 levETIRAcetam [Keppra -] 750 mg PO BID 04/15/17 Salmeterol/Fluticasone [Advair 250Mcg/50Mcg -] 1 inh PO BID 05/02/17 Nitroglycerin 0.4 mg SL PRN 06/13/17 Simvastatin 40 mg PO HS 06/13/17 Albuterol 0.083% Nebulizer Prabha [Ventolin 0.083% Nebulizer Soln -] 1 amp NEB Q6H PRN #0 amp 06/15/17 Diazepam [Valium] 5 mg PO DAILY #10 tablet MDD 10 08/21/17 Nitrofurantoin Monohyd/M-Cryst [Macrobid -] 100 mg PO BID #14 capsule 08/26/17 Oxycodone HCl/Acetaminophen [Percocet 5-325 mg Tablet] 1 tab PO Q6H #20 tablet MDD 4 tabs 08/30/17 Albuterol 0.083% Nebulizer Prabha [Ventolin 0.083% Nebulizer Soln -] 1 neb NEB Q4H PRN #20 vial 02/15/18 Albuterol Sulfate Inhaler - [Ventolin HFA Inhaler -] 1 - 2 inh PO Q4H PRN #1 inhaler 02/15/18 Prednisone [Deltasone] 20 mg PO DAILY #4 tablet 02/15/18 Azithromycin [Zithromax 250mg Tablets -] 500 mg PO DAILY #4 tablet 02/23/18 Prednisone 5 mg PO DAILY #7 tab.ds.pk 02/23/18 ia home
== END 2018-02-24 19:00 | disposition home or self-care (01) | DRG 202 ==
LOC: JER 14:48 → JERBED 19:57 → OBSVTOIN 21:25 → J6S 02-22 00:51
PROVIDERS: ADMIT Internal Medicine; ATTEND Internal Medicine
PROC: 3E0F76Z Introduction of Nutritional Substance into Respiratory Tract, Via Natural or Artificial Opening (ICD-10-PCS; principal; 2018-02-21)
DX: J45.901 Unspecified asthma with (acute) exacerbation (principal); N39.0 Urinary tract infection, site not specified; G40.89 Other seizures; D68.8 Other specified coagulation defects; J32.0 Chronic maxillary sinusitis; R42 Dizziness and giddiness; E78.5 Hyperlipidemia, unspecified; Z86.718 Personal history of other venous thrombosis and embolism; B96.29 Other Escherichia coli [E. coli] as the cause of diseases classified elsewhere; J44.9 Chronic obstructive pulmonary disease, unspecified; I10 Essential (primary) hypertension; Z86.73 Personal history of transient ischemic attack (TIA), and cerebral infarction without residual deficits; Z79.01 Long term (current) use of anticoagulants; E03.9 Hypothyroidism, unspecified; S02.2XXA Fracture of nasal bones, initial encounter for closed fracture; X58.XXXA Exposure to other specified factors, initial encounter; Y93.89 Activity, other specified; Y99.8 Other external cause status; M50.30 Other cervical disc degeneration, unspecified cervical region; Z87.11 Personal history of peptic ulcer disease; K29.70 Gastritis, unspecified, without bleeding; I51.9 Heart disease, unspecified; I27.20 Pulmonary hypertension, unspecified; I35.0 Nonrheumatic aortic (valve) stenosis
CPT/HCPCS: 36415; 36600; 70450-TC; 70486-TC; 71045-TC-FY; 80053; 81003; 82375; 82550; 82803; 83050; 83735; 84484; 85025; 85610; 87086; 87186; 93005; 93010; 93970-TC; 94640; 99285-25; G0378; J7030

== ENCOUNTER 2018-03-10 16:08 | Emergency (ER) | payer OTHER ==
[2018-03-10 16:18] VITALS: BMI 31.7
[2018-03-10] MEDS ORDERED: ALBUTEROL SO4 2.5/IPRATROPIUM 0.5 INH SOL 3 ML VIAL.NEB. NEB ONE ×4 (16:18→18:00)
--- NOTE | 2018-03-10 16:21 | PDOC ---
Rapid Medical Evaluation Time Seen by Provider: 03/10/18 16:14 Medical Evaluation: Allergies Allergy/AdvReac Type Severity Reaction Status Date / Time Penicillins Allergy Swelling Verified 02/21/18 14:51 03/10/18 16:14 I have performed a brief in-person evaluation of this patient. The patient presents with a chief complaint of:cough , congestion, bloody nose x 2 days with bloody nose today. Was discharged 2 weeks ago due to high INR Pertinent physical exam findings:very tight/ wheezing/ tachypneic. - provoked cough with speaking I have ordered the following: DuoNeb- started in Triage, CBC,PT/INR/CMP/BNP /UA The patient will proceed to the ED for further evaluation. 03/10/18 16:19
[2018-03-10 16:44] LABS: BASO % 0.3 % (0-2.0); EOS % 0.3 % (0-4.5); HEMOGLOBIN 13.2 GM/dL (10.7-15.3); LYMPH % 9.4 % (8-40); MCH 27.8 pg (25.7-33.7); MCHC 32.1 g/dl (32.0-36.0); MEAN CELL VOLUME 86.4 fl (80-96); MEAN PLT VOLUME 9.1 fl (7.5-11.1); PLATELET COUNT 283 K/MM3 (134-434); RBC 4.75 M/mm3 (3.60-5.2); RDW 15.6 % (11.6-15.6); WHITE BLOOD COUNT 11.8 K/mm3 (4.0-10.0)
[2018-03-10] MEDS ORDERED: methylPREDNISolone NA SUCC 125 MG/2 ML VIAL IVPB ONE (16:55)
[2018-03-10] MEDS ORDERED: methylPREDNISolone NA SUCC 125 MG/2 ML VIAL ONE (17:06)
--- NOTE | 2018-03-10 17:51 | PDOC ---
History of Present Illness - General Chief Complaint: Shortness of Breath Stated Complaint: SHORTNESS OF BREATH Time Seen by Provider: 03/10/18 16:14 History Source: Patient Exam Limitations: No Limitations - History of Present Illness Initial Comments: 03/10/18 17:07 77-year-old female with history of asthma presents to the ED with complaints of intermittent wheezing, cough, shortness of breath on exertion along with greenish productive phlegm without fever, chills lower extremity edema, or chest pain. Patient has been using her inhaler with minimal improvement. Patient has been in the ER for the past 3 months where she resides in [place]. Patient has frequent episodes asthma exacerbation but feels the seasonal allergies had made her symptoms worse. Timing/Duration: reports: other (2-3 weeks) Severity: reports: moderate Possible Cause: Yes: frequent episodes Modifying Factors: improves with: albuterol inhaler, coughing Associated Symptoms: reports: cough, nasal congestion, shortness of breath, wheezing Past History - Travel Traveled outside of the country in the last 30 days: No - Past Medical History Allergies/Adverse Reactions: Allergies Allergy/AdvReac Type Severity Reaction Status Date / Time Penicillins Allergy Swelling Verified 02/21/18 14:51 Home Medications: Ambulatory Orders Albuterol Sulfate Inhaler - [Ventolin HFA Inhaler -] 1 - 2 inh PO Q4H 04/15/17 Budesonide/Formeterol Fumarate [SYMBICORT 160/4.5mcg -] 2 inh PO BID 04/15/17 Cholecalciferol (Vitamin D3) [Vitamin D3] 10,000 unit PO WEEKLY 04/15/17 Fluticasone Prop 0.05% Nasal [Flonase -] 1 - 2 spray NS BID 04/15/17 Levothyroxine [Synthroid -] 25 mcg PO DAILY 04/15/17 Linaclotide [Linzess] 290 mcg PO DAILY 04/15/17 Losartan/Hydrochlorothiazide [Losartan-Hctz 100-25 mg Tab] 1 each PO DAILY 04/15 Montelukast Na [Singulair -] 10 mg PO HS 04/15/17 Pantoprazole Sodium [Protonix -] 40 mg PO DAILY 04/15/17 Warfarin Sodium [Coumadin] 2.5 mg PO ASDIR 04/15/17 levETIRAcetam [Keppra -] 750 mg PO BID 04/15/17 Salmeterol/Fluticasone [Advair 250Mcg/50Mcg -] 1 inh PO BID 05/02/17 Nitroglycerin 0.4 mg SL PRN 06/13/17 Simvastatin 40 mg PO HS 06/13/17 Albuterol 0.083% Nebulizer Prabha [Ventolin 0.083% Nebulizer Soln -] 1 amp NEB Q6H PRN #0 amp 06/15/17 Diazepam [Valium] 5 mg PO DAILY #10 tablet MDD 10 08/21/17 Nitrofurantoin Monohyd/M-Cryst [Macrobid -] 100 mg PO BID #14 capsule 08/26/17 Oxycodone HCl/Acetaminophen [Percocet 5-325 mg Tablet] 1 tab PO Q6H #20 tablet MDD 4 tabs 08/30/17 Albuterol 0.083% Nebulizer Prabha [Ventolin 0.083% Nebulizer Soln -] 1 neb NEB Q4H PRN #20 vial 02/15/18 Albuterol Sulfate Inhaler - [Ventolin HFA Inhaler -] 1 - 2 inh PO Q4H PRN #1 inhaler 02/15/18 Prednisone [Deltasone] 20 mg PO DAILY #4 tablet 02/15/18 Azithromycin [Zithromax 250mg Tablets -] 500 mg PO DAILY #4 tablet 02/23/18 Prednisone 5 mg PO DAILY #7 tab.ds.pk 02/23/18 Albuterol 0.083% Nebulizer Prabha [Ventolin 0.083% Nebulizer Soln -] 1 neb NEB QID #60 vial 03/10/18 Doxycycline Hyclate 100 mg PO BID #10 capsule 03/10/18 Prednisone [Prednisone 50 MG TABLETS] 50 mg PO DAILY #4 tablet 03/10/18 Anemia: No Asthma: Yes Cancer: No Cardiac Disorders: Yes (angina) CVA: Yes (tia) COPD: Yes CHF: No DVT: No Dementia: No Diabetes: No GI Disorders: Yes (ULCER, HERNIA) Disorders: No HTN: Yes Hypercholesterolemia: Yes Liver Disease: No Seizures: Yes Thyroid Disease: Yes - Surgical History Abdominal Surgery: No Appendectomy: No Cardiac Surgery: No Cholecystectomy: No Lung Surgery: No Neurologic Surgery: No Orthopedic Surgery: No - Immunization History Immunization Up to Date: Yes - Suicide/Smoking/Psychosocial Hx Smoking Status: No Smoking History: Never smoked Have you smoked in the past 12 months: No Number of Cigarettes Smoked Daily: 0 Hx Alcohol Use: No Drug/Substance Use Hx: No Substance Use Type: None Hx Substance Use Treatment: No Patient Lives Alone: No Respiratory Specific PMHX - Complaint Specific PMHX Bronchitis: Yes Review of Systems - Review of Systems Able to Perform ROS?: No Constitutional: No: Symptoms Reported HEENTM: No: Symptoms Reported Respiratory: Yes: Cough, SOB with Exertion, Wheezing, Productive cough Cardiac (ROS): No: Symptoms Reported ABD/GI: No: Symptoms Reported : No: Symptoms Reported Musculoskeletal: No: Symptoms Reported Integumentary: No: Symptoms Reported Neurological: No: Symptoms reported *Physical Exam - Vital Signs Last Vital Signs Temp Pulse Resp BP Pulse Ox 89 24 129/85 98 03/10/18 17:31 03/10/18 16:13 03/10/18 16:13 03/10/18 17:31 - Physical Exam General Appearance: Yes: Nourished, Appropriately Dressed. No: Apparent Distress HEENT: positive: EOMI, DORA, TMs Normal, Pharynx Normal. negative: Pale Conjunctivae Neck: positive: Normal Thyroid, Supple Respiratory/Chest: positive: Accessory Muscle Use (mild intercostal), Wheezing ( expiratory bilateral). negative: Respiratory Distress Cardiovascular: positive: Regular Rhythm, Regular Rate. negative: Murmur Gastrointestinal/Abdominal: positive: Soft. negative: Tenderness Extremity: positive: Normal Capillary Refill. negative: Pedal Edema Integumentary: positive: Normal Color, Warm, Moist Neurologic: positive: Normal Mood/Affect, Motor Strength 5/5 (ambulatory with cane) ED Treatment Course - LABORATORY CBC & Chemistry Diagram: 03/10/18 16:26 03/10/18 18:00 - ADDITIONAL ORDERS Additional order review: Laboratory Results 03/10/18 16:26 Sodium Cancelled Potassium Cancelled Chloride Cancelled Carbon Dioxide Cancelled Anion Gap Cancelled BUN Cancelled Creatinine Cancelled Creat Clearance w eGFR Cancelled Random Glucose Cancelled Calcium Cancelled Total Bilirubin Cancelled AST Cancelled ALT Cancelled Alkaline Phosphatase Cancelled Creatine Kinase Cancelled Troponin I Cancelled B-Natriuretic Peptide Cancelled Total Protein Cancelled Albumin Cancelled 03/10/18 16:26 RBC 4.75 MCV 86.4 MCHC 32.1 RDW 15.6 MPV 9.1 Neutrophils % 87.0 H D Lymphocytes % 9.4 D Monocytes % 3.0 L Eosinophils % 0.3 D Basophils % 0.3 - RADIOLOGY Radiology Studies Ordered: Category Date Time Status CHEST PA & LAT [RAD] Stat Radiology 03/10/18 17:36 Ordered - Medications Given in the ED: ED Medications Discontinued Medications Generic Name Dose Route Start Last Admin Trade Name Tiagoq PRN Reason Stop Dose Admin Albuterol/Ipratropium 1 amp 03/10/18 16:18 03/10/18 16:48 Duoneb - NEB 03/10/18 16:19 1 amp ONCE ONE Administration Albuterol/Ipratropium 1 amp 03/10/18 16:55 03/10/18 17:04 Duoneb - NEB 03/10/18 16:56 1 amp ONCE ONE Administration Methylprednisolone Sodium Succinate 125 mg 03/10/18 16:55 03/10/18 17:17 Solu-Medrol - IVPB 03/10/18 16:56 125 mg ONCE ONE Administration Medical Decision Making - Medical Decision Making 03/10/18 17:13 Patient with complaints of wheezing, productive cough she describes a greenish phlegm for the past 2-3 weeks. Patient denies associated symptoms including cardiac symptoms. Patient exam with expiratory wheezing bilateral with mild intercostal assessment he muscle usage. Patient ordered for labs, DuoNeb, Solu-Medrol, chest x-ray with cardiac monitoring. 03/10/18 17:55 Patient ambulated to receive her x-ray stating moderate improvement of wheezing and shortness of breath. Patient reexamined and had mild bilateral wheezing on expiration. Patient ordered a third DuoNeb while awaiting chemistry results 03/10/18 17:56 Laboratory Tests 03/10/18 16:26 RBC 4.75 Neutrophils % 87.0 H D 03/10/18 18:34 Chest x-ray negative for infiltrate/effusion. No acute findings when compared to previous chest x-ray done on February 21. Chemistry hemolyzed awaiting results. Patient receiving third DuoNeb. 03/10/18 18:39 Since satting at 100% on room air. Patient states feeling better. Patient with mild expiratory wheeze to the left but otherwise patient has breath sounds to the bases. *DC/Admit/Observation/Transfer Diagnosis at time of Disposition: Asthma exacerbation - Discharge Dispostion Disposition: HOME Condition at time of disposition: Stable - Prescriptions Prescriptions: Albuterol 0.083% Nebulizer Prabha [Ventolin 0.083% Nebulizer Soln -] 1 neb NEB QID #60 vial Doxycycline Hyclate 100 mg PO BID #10 capsule Prednisone [Prednisone 50 MG TABLETS] 50 mg PO DAILY #4 tablet - Referrals Referrals: Geovany Yoder MD [Staff Physician] - Marta Abernathy MD [Staff Physician] - - Patient Instructions Additional Instructions: Rest, drink lots of fluids: Teas, water, soups, Pedialyte Steamy showers/seem to face break up mucus Avoid contact with others until fevers and cough resolved Lots of handwashing and good hygiene Continue [id number] medications for symptomatic relief Tylenol or Motrin for fever and pain Take doxycycline 100 mg twice a day for the next 5 days. Do not take her Coumadin for the next 2 days. Restart your Coumadin on March 12 at 2 mg every day. Followup with private physician in one to 2 days as needed Return to emergency department for worsened symptoms, fevers, dehydration Return to the emergency department immediately for any falls, bleeding or severe headaches. Descansa, karime muchos lquidos: ts, agua, sopas, Pedialyte Las duchas con agua parecen romper la mucosidad Evite el contacto con otras personas hasta que se resuelvan las fiebres y la tos Mucho lavado de gonzalez y buena higiene Continuar tomando medicamentos sin receta para aliviar los sntomas Tylenol o Motrin para la fiebre y el dolor Trivoli doxiciclina 100 mg dos veces al da mimi los prximos 5 felipe. No tome bolivar Coumadin mimi los prximos 2 felipe. Reinicie bolivar Coumadin el a 2 mg al da. Seguimiento con un mdico privado en [place] o dos felipe segn sea necesario Regrese al departamento de emergencias por sntomas empeorados, fiebre, deshidratacin. Regrese al departamento de emergencia de inmediato por cualquier cada, sangrado o chester de sepideh severos. - Post Discharge Activity
[2018-03-10 18:59] LABS: ALBUMIN 3.6 g/dl (3.4-5.0); ANION GAP 9 (8-16); BILIRUBIN,TOTAL 0.4 mg/dL (0.2-1.0); BLOOD UREA NITROGEN 23 mg/dL (7-18); CALCIUM 9.2 mg/dL (8.5-10.1); CHLORIDE 106 mmol/L (98-107); CO2 25 mmol/L (21-32); CREATININE 0.8 mg/dL (0.55-1.02); GLUCOSE,RANDOM 152 mg/dL (74-106); POTASSIUM 3.9 mmol/L (3.5-5.1); SGOT/AST 24 U/L (15-37); SGPT/ALT 48 U/L (12-78); SODIUM 140 mmol/L (136-145); TOT PROT 6.8 g/dl (6.4-8.2)
[2018-03-10 19:00] LABS: ALK PHOS 80 U/L (45-117)
--- NOTE | 2018-03-10 19:04 | PDOC ---
*Physical Exam - Vital Signs Last Vital Signs Temp Pulse Resp BP Pulse Ox 87 16 133/74 98 03/10/18 18:00 03/10/18 18:00 03/10/18 18:00 03/10/18 18:00 - Physical Exam General Appearance: Yes: Appropriately Dressed. No: Apparent Distress Neck: positive: Trachea midline, Supple Respiratory/Chest: positive: Lungs Clear, Normal Breath Sounds. negative: Respiratory Distress, Accessory Muscle Use Cardiovascular: positive: Regular Rhythm, Regular Rate. negative: Murmur Integumentary: positive: Normal Color, Dry, Warm Neurologic: positive: Alert, Normal Response ED Treatment Course - LABORATORY CBC & Chemistry Diagram: 03/10/18 16:26 03/10/18 18:00 - ADDITIONAL ORDERS Additional order review: Laboratory Results 03/10/18 03/10/18 18:00 16:26 Sodium 140 Cancelled Potassium 3.9 Cancelled Chloride 106 Cancelled Carbon Dioxide 25 Cancelled Anion Gap 9 Cancelled BUN 23 H Cancelled Creatinine 0.8 Cancelled Creat Clearance w eGFR > 60 Cancelled Random Glucose 152 H Cancelled Calcium 9.2 Cancelled Total Bilirubin 0.4 D Cancelled AST 24 Cancelled ALT 48 Cancelled Alkaline Phosphatase 80 Cancelled Creatine Kinase Cancelled Troponin I Cancelled B-Natriuretic Peptide Cancelled Total Protein 6.8 Cancelled Albumin 3.6 Cancelled 03/10/18 16:26 RBC 4.75 MCV 86.4 MCHC 32.1 RDW 15.6 MPV 9.1 Neutrophils % 87.0 H D Lymphocytes % 9.4 D Monocytes % 3.0 L Eosinophils % 0.3 D Basophils % 0.3 - Medications Given in the ED: ED Medications Discontinued Medications Generic Name Dose Route Start Last Admin Trade Name Tiagoq PRN Reason Stop Dose Admin Albuterol/Ipratropium 1 amp 03/10/18 16:18 03/10/18 16:48 Duoneb - NEB 03/10/18 16:19 1 amp ONCE ONE Administration Albuterol/Ipratropium 1 amp 03/10/18 16:55 03/10/18 17:04 Duoneb - NEB 03/10/18 16:56 1 amp ONCE ONE Administration Albuterol/Ipratropium 1 amp 03/10/18 18:00 03/10/18 17:53 Duoneb - NEB 03/10/18 18:01 1 amp ONCE ONE Administration Methylprednisolone Sodium Succinate 125 mg 03/10/18 16:55 03/10/18 17:17 Solu-Medrol - IVPB 03/10/18 16:56 125 mg ONCE ONE Administration Progress Note - Progress Note Progress Note: Sign out received from JIA Robert Summary of ED course- Pertinent studies/lab/EKG/consults- CXR- No acute pulmonary process. Meds given- Solumedrol, albuterol Anticipated plan/disposition- discharge pending INR Medical Decision Making - Medical Decision Making 03/10/18 19:22 A/P: 69-year-old woman with acute exacerbation of asthma Lungs clear after receiving sudden visual and 3 doses of albuterol nebulizers White count of 11.8 with slight left shift Productive cough noted on exam Patient with pending INR results at this time. Likely discharge home with refill for albuterol and azithromycin given the patient's asthma history left shift a productive cough. 03/10/18 19:31 Patient with INR 4.64. No active bleeding at this time. We'll discharge the patient home with instructions to hold her Coumadin for the next 2 days and to follow up with her primary doctor for reevaluation of her INR at that time. I prescribe Doxycycline as patient is alert the penicillin and azithromycin and Levaquin have greater effect on INR. All results and findings discussed with patient who verbalized understanding. Her Coumadin and continue with 2 mg starting on 03/12. Patient has no primary doctor in the area. I will give referral to see Dr. Yoder and Dr. Gonsalez to follow-up. *DC/Admit/Observation/Transfer Diagnosis at time of Disposition: Asthma exacerbation Qualifiers: Asthma severity: mild Asthma persistence: intermittent Qualified Code(s): J45.21 - Mild intermittent asthma with (acute) exacerbation - Discharge Dispostion Disposition: HOME Condition at time of disposition: Stable Decision to Admit order: No - Prescriptions Prescriptions: Albuterol 0.083% Nebulizer Prabha [Ventolin 0.083% Nebulizer Soln -] 1 neb NEB QID #60 vial Doxycycline Hyclate 100 mg PO BID #10 capsule Prednisone [Prednisone 50 MG TABLETS] 50 mg PO DAILY #4 tablet - Referrals Referrals: Marta Abernathy MD [Staff Physician] - Geovany Yoder MD [Staff Physician] - - Patient Instructions Additional Instructions: Rest, drink lots of fluids: Teas, water, soups, Pedialyte Steamy showers/seem to face break up mucus Avoid contact with others until fevers and cough resolved Lots of handwashing and good hygiene Continue [id number] medications for symptomatic relief Tylenol or Motrin for fever and pain Take doxycycline 100 mg twice a day for the next 5 days. Do not take her Coumadin for the next 2 days. Restart your Coumadin on March 12 at 2 mg every day. Followup with private physician in one to 2 days as needed Return to emergency department for worsened symptoms, fevers, dehydration Return to the emergency department immediately for any falls, bleeding or severe headaches. Descguicho, karime muchos lquidos: ts, agua, sopas, Pedialyte Las duchas con agua parecen romper la mucosidad Evite el contacto con otras personas hasta que se resuelvan las fiebres y la tos Mucho lavado de gonzalez y buena higiene Continuar tomando medicamentos sin receta para aliviar los sntomas Tylenol o Motrin para la fiebre y el dolor Harvest doxiciclina 100 mg dos veces al da mimi los prximos 5 felipe. No tome bolivar Coumadin mimi los prximos 2 felipe. Reinicie bolivar Coumadin el a 2 mg al da. Seguimiento con un mdico privado en [place] o dos felipe segn sea necesario Regrese al departamento de emergencias por sntomas empeorados, fiebre, deshidratacin. Regrese al departamento de emergencia de inmediato por cualquier cada, sangrado o chester de sepideh severos. - Post Discharge Activity
[2018-03-10 19:18] LABS: PROTHROMBIN TIME (PATIENT) 52.4 SEC (9.7-13.0)
[2018-03-10 19:27] LABS: INR 4.64 (0.82-1.09)
[2018-03-10 19:48] VITALS: BP 134/65; PULSE 80
== END 2018-03-10 19:59 | disposition home or self-care (01) ==
LOC: JER 16:08
PROC: 3E0333Z Introduction of Anti-inflammatory into Peripheral Vein, Percutaneous Approach (ICD-10-PCS; principal; 2018-03-10)
PROC: 3E0F7GC Introduction of Other Therapeutic Substance into Respiratory Tract, Via Natural or Artificial Opening (ICD-10-PCS; 2018-03-10)
PROC: 3E0F7GC Introduction of Other Therapeutic Substance into Respiratory Tract, Via Natural or Artificial Opening (ICD-10-PCS; 2018-03-10)
PROC: 3E0F7GC Introduction of Other Therapeutic Substance into Respiratory Tract, Via Natural or Artificial Opening (ICD-10-PCS; 2018-03-10)
DX: J45.21 Mild intermittent asthma with (acute) exacerbation (principal); R04.0 Epistaxis; I25.119 Atherosclerotic heart disease of native coronary artery with unspecified angina pectoris; I10 Essential (primary) hypertension; G40.909 Epilepsy, unspecified, not intractable, without status epilepticus; E03.9 Hypothyroidism, unspecified; Z87.19 Personal history of other diseases of the digestive system; Z86.73 Personal history of transient ischemic attack (TIA), and cerebral infarction without residual deficits; Z79.01 Long term (current) use of anticoagulants; J44.9 Chronic obstructive pulmonary disease, unspecified
CPT/HCPCS: 36415; 71046-TC-FY; 80053; 85025; 85610; 99283-25; J7620

== ENCOUNTER 2018-03-15 17:11 | Emergency (ER) | payer OTHER ==
[2018-03-15 17:20] VITALS: BP 121/71; PULSE 82; TEMP 98; BMI 33.6
--- NOTE | 2018-03-15 17:20 | PDOC ---
Rapid Medical Evaluation Time Seen by Provider: 03/15/18 17:16 Medical Evaluation: Allergies Allergy/AdvReac Type Severity Reaction Status Date / Time Penicillins Allergy Swelling Verified 02/21/18 14:51 03/15/18 17:17 Patient c/o: jordan leg pain since 2 days, hx dvt, recent supratherapeutic inr so was decreased and did not follow up for repeat inr Patient on brief exam: bilateral calf pain, no erythema Patient ordered for: duplex, inr, Patient to proceed to the ED Discharge Disposition - Diagnosis Leg pain, bilateral - Referrals - Patient Instructions - Post Discharge Activity
[2018-03-15 17:51] LABS: BASO % 0.3 % (0-2.0); EOS % 0.1 % (0-4.5); HEMATOCRIT 43.7 % (32.4-45.2); HEMOGLOBIN 14.2 GM/dL (10.7-15.3); LYMPH % 5.6 % (8-40); MCH 27.7 pg (25.7-33.7); MCHC 32.4 g/dl (32.0-36.0); MEAN CELL VOLUME 85.5 fl (80-96); MEAN PLT VOLUME 8.4 fl (7.5-11.1); MONO % 0.9 % (3.8-10.2); NEUT % 93.1 % (42.8-82.8); PLATELET COUNT 280 K/MM3 (134-434); RBC 5.11 M/mm3 (3.60-5.2); RDW 15.5 % (11.6-15.6); WHITE BLOOD COUNT 12.2 K/mm3 (4.0-10.0)
--- NOTE | 2018-03-15 18:06 | PDOC ---
History of Present Illness - General Chief Complaint: Pain, Acute Stated Complaint: LEG PAIN Time Seen by Provider: 03/15/18 17:16 - History of Present Illness Initial Comments: 03/15/18 18:15 Ms. Jay Cooper is a 77 yo female w/ pmh of DVT, osteoarthritis, asthma, HTN, HLD who presents for evaluation of 2 day history of bilateral leg pain (left started first, then right). Patient was recently found to have supratherapeutic INR so coumadin decreased however she did not f/u for repeat INR. Patient reports pain is inside leg and feels itchy/burning. The patient denies chest pain, shortness of breath, headache and dizziness. Denies fever, chills, nausea, vomit, diarrhea and constipation. Denies dysuria, frequency, urgency and hematuria. Allergies: Penicillins Past History - Past Medical History Allergies/Adverse Reactions: Allergies Allergy/AdvReac Type Severity Reaction Status Date / Time Penicillins Allergy Swelling Verified 02/21/18 14:51 Home Medications: Ambulatory Orders Albuterol Sulfate Inhaler - [Ventolin HFA Inhaler -] 1 - 2 inh PO Q4H 04/15/17 Budesonide/Formeterol Fumarate [SYMBICORT 160/4.5mcg -] 2 inh PO BID 04/15/17 Cholecalciferol (Vitamin D3) [Vitamin D3] 10,000 unit PO WEEKLY 04/15/17 Fluticasone Prop 0.05% Nasal [Flonase -] 1 - 2 spray NS BID 04/15/17 Levothyroxine [Synthroid -] 25 mcg PO DAILY 04/15/17 Linaclotide [Linzess] 290 mcg PO DAILY 04/15/17 Losartan/Hydrochlorothiazide [Losartan-Hctz 100-25 mg Tab] 1 each PO DAILY 04/15 Montelukast Na [Singulair -] 10 mg PO HS 04/15/17 Pantoprazole Sodium [Protonix -] 40 mg PO DAILY 04/15/17 Warfarin Sodium [Coumadin] 2.5 mg PO ASDIR 04/15/17 levETIRAcetam [Keppra -] 750 mg PO BID 04/15/17 Salmeterol/Fluticasone [Advair 250Mcg/50Mcg -] 1 inh PO BID 05/02/17 Nitroglycerin 0.4 mg SL PRN 06/13/17 Simvastatin 40 mg PO HS 06/13/17 Albuterol 0.083% Nebulizer Prabha [Ventolin 0.083% Nebulizer Soln -] 1 amp NEB Q6H PRN #0 amp 06/15/17 Diazepam [Valium] 5 mg PO DAILY #10 tablet MDD 10 08/21/17 Nitrofurantoin Monohyd/M-Cryst [Macrobid -] 100 mg PO BID #14 capsule 08/26/17 Oxycodone HCl/Acetaminophen [Percocet 5-325 mg Tablet] 1 tab PO Q6H #20 tablet MDD 4 tabs 08/30/17 Albuterol 0.083% Nebulizer Prabha [Ventolin 0.083% Nebulizer Soln -] 1 neb NEB Q4H PRN #20 vial 02/15/18 Albuterol Sulfate Inhaler - [Ventolin HFA Inhaler -] 1 - 2 inh PO Q4H PRN #1 inhaler 02/15/18 Prednisone [Deltasone] 20 mg PO DAILY #4 tablet 02/15/18 Azithromycin [Zithromax 250mg Tablets -] 500 mg PO DAILY #4 tablet 02/23/18 Prednisone 5 mg PO DAILY #7 tab.ds.pk 02/23/18 Albuterol 0.083% Nebulizer Prabha [Ventolin 0.083% Nebulizer Soln -] 1 neb NEB QID #60 vial 03/10/18 Doxycycline Hyclate 100 mg PO BID #10 capsule 03/10/18 Prednisone [Prednisone 50 MG TABLETS] 50 mg PO DAILY #4 tablet 03/10/18 Anemia: No Asthma: Yes Cancer: No Cardiac Disorders: Yes (angina) CVA: Yes (tia) COPD: Yes CHF: No DVT: No Dementia: No Diabetes: No GI Disorders: Yes (ULCER, HERNIA) Disorders: No HTN: Yes Hypercholesterolemia: Yes Liver Disease: No Seizures: Yes Thyroid Disease: Yes - Surgical History Abdominal Surgery: No Appendectomy: No Cardiac Surgery: No Cholecystectomy: No Lung Surgery: No Neurologic Surgery: No Orthopedic Surgery: No - Immunization History Immunization Up to Date: Yes - Suicide/Smoking/Psychosocial Hx Smoking Status: No Smoking History: Never smoked Have you smoked in the past 12 months: No Number of Cigarettes Smoked Daily: 0 Hx Alcohol Use: No Drug/Substance Use Hx: No Substance Use Type: None Hx Substance Use Treatment: No Review of Systems - Review of Systems Comments:: 03/15/18 18:21 GENERAL/CONSTITUTIONAL: No fever or chills. No weakness. HEAD, EYES, EARS, NOSE AND THROAT: No change in vision. No ear pain or discharge. No sore throat. CARDIOVASCULAR: No chest pain or shortness of breath RESPIRATORY: No cough, wheezing, or hemoptysis. GASTROINTESTINAL: No nausea, vomiting, diarrhea or constipation. GENITOURINARY: No dysuria, frequency, or change in urination. MUSCULOSKELETAL: +Leg pain as described. No neck or back pain. SKIN: No rash NEUROLOGIC: No headache, vertigo, loss of consciousness, or change in strength/ sensation. ENDOCRINE: No increased thirst. No abnormal weight change HEMATOLOGIC/LYMPHATIC: No anemia, easy bleeding, or history of blood clots. ALLERGIC/IMMUNOLOGIC: No hives or skin allergy. *Physical Exam - Vital Signs Last Vital Signs Temp Pulse Resp BP Pulse Ox 98 F 82 20 121/71 99 03/15/18 17:18 03/15/18 17:18 03/15/18 17:18 03/15/18 17:18 03/15/18 17:18 - Physical Exam Comments: 03/15/18 18:22 GENERAL: Awake, alert, and fully oriented, in no acute distress HEAD: No signs of trauma, normocephalic, atraumatic EYES: PERRLA, EOMI, sclera anicteric, conjunctiva clear ENT: Auricles normal inspection, hearing grossly normal, nares patent, oropharynx clear without exudates. Moist mucosa NECK: Normal ROM, supple, no lymphadenopathy, JVD, or masses LUNGS: No distress, speaks full sentences, clear to auscultation bilaterally HEART: Regular rate and rhythm, normal S1 and S2, no murmurs, rubs or gallops, peripheral pulses normal and equal bilaterally. ABDOMEN: Soft, nontender, normoactive bowel sounds. No guarding, no rebound. No masses EXTREMITIES: Normal inspection, Normal range of motion, no edema. No clubbing or cyanosis. NEUROLOGICAL: Cranial nerves II through XII grossly intact. Normal speech, normal gait, no focal sensorimotor deficits SKIN: Warm, Dry, normal turgor, no rashes or lesions noted. ED Treatment Course - LABORATORY CBC & Chemistry Diagram: 03/15/18 17:42 03/15/18 17:42 Medical Decision Making - Medical Decision Making 03/15/18 21:06 Ms. Thompson is a 77 yo female w/ pmh as described who presents for evaluation of leg pain bilaterally. US ordered for evaluation. Labs grossly unconcerning as below. US negative for acute process. Discharging to home with instructions to f /u outpatient with PCP for further evaluation Laboratory Results - last 24 hr 03/15/18 03/15/18 03/15/18 17:42 17:42 17:42 WBC 12.2 H RBC 5.11 Hgb 14.2 Hct 43.7 MCV 85.5 MCH 27.7 MCHC 32.4 RDW 15.5 Plt Count 280 MPV 8.4 Absolute Neuts (auto) 11.4 Neutrophils % 93.1 H Lymphocytes % 5.6 L D Monocytes % 0.9 L Eosinophils % 0.1 Basophils % 0.3 Nucleated RBC % 0 PT with INR 17.70 H INR 1.57 H D Sodium 139 Potassium 4.1 Chloride 101 Carbon Dioxide 29 Anion Gap 9 BUN 23 H Creatinine 0.9 Creat Clearance w eGFR > 60 Random Glucose 145 H Calcium 9.1 Total Bilirubin 0.4 AST 25 ALT 53 Alkaline Phosphatase 92 Total Protein 7.0 Albumin 3.7 . *DC/Admit/Observation/Transfer Diagnosis at time of Disposition: Leg pain, bilateral - Discharge Dispostion Disposition: HOME - Referrals - Patient Instructions Printed Discharge Instructions: DI for Osteoarthritis Additional Instructions: Please follow-up with primary care provider for further evaluation and proper dosing of coumadin (current INR 1.57). Return to ER if any increase in pain, fever, chills, or other concerning symptoms. - Post Discharge Activity
[2018-03-15 18:19] LABS: INR 1.57 (0.82-1.09); PROTHROMBIN TIME (PATIENT) 17.7 SEC (9.7-13.0)
[2018-03-15 18:30] LABS: ALBUMIN 3.7 g/dl (3.4-5.0); ANION GAP 9 (8-16); BLOOD UREA NITROGEN 23 mg/dL (7-18); CALCIUM 9.1 mg/dL (8.5-10.1); CHLORIDE 101 mmol/L (98-107); CO2 29 mmol/L (21-32); CREATININE 0.9 mg/dL (0.55-1.02); GLUCOSE,RANDOM 145 mg/dL (74-106); POTASSIUM 4.1 mmol/L (3.5-5.1); SGOT/AST 25 U/L (15-37); SGPT/ALT 53 U/L (12-78); SODIUM 139 mmol/L (136-145)
[2018-03-15 18:32] LABS: ALK PHOS 92 U/L (45-117); BILIRUBIN,TOTAL 0.4 mg/dL (0.2-1.0)
--- NOTE | 2018-03-15 18:34 | PDOC ---
Attending Attestation - Resident Resident Name: [email or web address] - ED Attending Attestation I have performed the following: I have examined & evaluated the patient, The case was reviewed & discussed with the resident, I agree w/resident's findings & plan, Exceptions are as noted - HPI HPI: 03/15/18 18:34 77 yo female p/w b/l swollen LE - Physicial Exam PE: 03/15/18 21:00 77 yo female sent for eval of LE because of some swelling -on exam there is no evidence of erythema, no pitting edema good dt and pt pulses neuro axox3 - Medical Decision Making 03/15/18 19:08 inr = 1.57 03/15/18 20:55 duplex of LE is NEGATIVE
[2018-03-15] MEDS ORDERED: KETOROLAC TROMETHAMINE 15 MG/ML VIAL IM ONE (21:11)
[2018-03-15 21:24] LABS: PLATELET ESTIMATE ADEQUATE
== END 2018-03-15 21:36 | disposition home or self-care (01) ==
LOC: JER 17:11
PROC: 3E0233Z Introduction of Anti-inflammatory into Muscle, Percutaneous Approach (ICD-10-PCS; principal; 2018-03-15)
DX: M79.662 Pain in left lower leg (principal); M79.661 Pain in right lower leg; M19.90 Unspecified osteoarthritis, unspecified site; Z86.718 Personal history of other venous thrombosis and embolism; Z79.01 Long term (current) use of anticoagulants; Z86.73 Personal history of transient ischemic attack (TIA), and cerebral infarction without residual deficits; I10 Essential (primary) hypertension; E78.00 Pure hypercholesterolemia, unspecified; J45.909 Unspecified asthma, uncomplicated; J44.9 Chronic obstructive pulmonary disease, unspecified; G40.909 Epilepsy, unspecified, not intractable, without status epilepticus; Z87.19 Personal history of other diseases of the digestive system
CPT/HCPCS: 36415; 80053; 85025; 85610; 93970-TC; 96372; 99281-25

== ENCOUNTER 2018-08-17 15:46 | Emergency (ER) | payer OTHER ==
[2018-08-17 15:53] VITALS: BMI 32.1
--- NOTE | 2018-08-17 15:57 | PDOC ---
Rapid Medical Evaluation Chief Complaint: Muscle Cramping Time Seen by Provider: 08/17/18 15:53 Medical Evaluation: Allergies Allergy/AdvReac Type Severity Reaction Status Date / Time Penicillins Allergy Swelling Verified 08/17/18 15:53 Vital Signs Temp Pulse Resp BP Pulse Ox 98.7 F 91 H 20 135/72 100 08/17/18 15:50 08/17/18 15:50 08/17/18 15:50 08/17/18 15:50 08/17/18 15:50 08/17/18 15:54 I have performed a brief in-person evaluation of this patient. The patient presents with a chief complaint of: muscle cramping x days Pertinent physical exam findings: hematoma to left lateral ankle I have ordered the following: labs The patient will proceed to the ED for further evaluation. Discharge Disposition - Diagnosis Muscle cramps - Referrals - Patient Instructions - Post Discharge Activity
--- NOTE | 2018-08-17 16:22 | PDOC ---
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 Pt denied fall or injury, stated she woke up with the bruise. Pt also complained of intermittent chest pain, beginning 2 weeks ago, described as sharp, lasting 15-20 seconds at a time, no aggravating or alleviating factors, occuring 3 times a day, with no precipitating factor, stated can occur at rest. Pt also complained of increasing FIERRO over the last two weeks, worsening over the last 2 days. She recently flew to [facility] from [place], 3 hour plane ride. Denied hormone use, surgery<4 weeks, active cancer <6 months. Pt stated she takes 2.0 mg Coumadin Wednesday through Wednesday and 2.5 mg Coumadin Wednesday and Wednesday. Past History - Past Medical History Allergies/Adverse Reactions: Allergies Allergy/AdvReac Type Severity Reaction Status Date / Time Penicillins Allergy Swelling Verified 08/17/18 15:53 Home Medications: Ambulatory Orders Albuterol Sulfate Inhaler - [Ventolin HFA Inhaler -] 1 - 2 inh PO Q4H 04/15/17 Budesonide/Formeterol Fumarate [SYMBICORT 160/4.5mcg -] 2 inh PO BID 04/15/17 Cholecalciferol (Vitamin D3) [Vitamin D3] 10,000 unit PO WEEKLY 04/15/17 Fluticasone Prop 0.05% Nasal [Flonase -] 1 - 2 spray NS BID 04/15/17 Levothyroxine [Synthroid -] 25 mcg PO DAILY 04/15/17 Linaclotide [Linzess] 290 mcg PO DAILY 04/15/17 Losartan/Hydrochlorothiazide [Losartan-Hctz 100-25 mg Tab] 1 each PO DAILY 04/15 Montelukast Na [Singulair -] 10 mg PO HS 04/15/17 Pantoprazole Sodium [Protonix -] 40 mg PO DAILY 04/15/17 Warfarin Sodium [Coumadin] 2.5 mg PO ASDIR 04/15/17 levETIRAcetam [Keppra -] 750 mg PO BID 04/15/17 Salmeterol/Fluticasone [Advair 250Mcg/50Mcg -] 1 inh PO BID 05/02/17 Nitroglycerin 0.4 mg SL PRN 06/13/17 Simvastatin 40 mg PO HS 06/13/17 Albuterol 0.083% Nebulizer Prabha [Ventolin 0.083% Nebulizer Soln -] 1 amp NEB Q6H PRN #0 amp 06/15/17 Diazepam [Valium] 5 mg PO DAILY #10 tablet MDD 10 08/21/17 Nitrofurantoin Monohyd/M-Cryst [Macrobid -] 100 mg PO BID #14 capsule 08/26/17 Oxycodone HCl/Acetaminophen [Percocet 5-325 mg Tablet] 1 tab PO Q6H #20 tablet MDD 4 tabs 08/30/17 Albuterol 0.083% Nebulizer Prabha [Ventolin 0.083% Nebulizer Soln -] 1 neb NEB Q4H PRN #20 vial 02/15/18 Albuterol Sulfate Inhaler - [Ventolin HFA Inhaler -] 1 - 2 inh PO Q4H PRN #1 inhaler 02/15/18 Prednisone [Deltasone] 20 mg PO DAILY #4 tablet 02/15/18 Azithromycin [Zithromax 250mg Tablets -] 500 mg PO DAILY #4 tablet 02/23/18 Prednisone 5 mg PO DAILY #7 tab.ds.pk 02/23/18 Albuterol 0.083% Nebulizer Prabha [Ventolin 0.083% Nebulizer Soln -] 1 neb NEB QID #60 vial 03/10/18 Doxycycline Hyclate 100 mg PO BID #10 capsule 03/10/18 Prednisone [Prednisone 50 MG TABLETS] 50 mg PO DAILY #4 tablet 03/10/18 Anemia: No Asthma: Yes Cancer: No Cardiac Disorders: Yes (angina) CVA: Yes (tia) COPD: Yes CHF: No DVT: No Dementia: No Diabetes: No GI Disorders: Yes (ULCER, HERNIA) Disorders: No HTN: Yes Hypercholesterolemia: Yes Liver Disease: No Seizures: Yes Thyroid Disease: Yes Other medical history: Bilateral DVT - Surgical History Abdominal Surgery: No Appendectomy: No Cardiac Surgery: No Cholecystectomy: No Lung Surgery: No Neurologic Surgery: No Orthopedic Surgery: No - Immunization History Immunization Up to Date: Yes - Suicide/Smoking/Psychosocial Hx Smoking Status: No Smoking History: Never smoked Have you smoked in the past 12 months: No Number of Cigarettes Smoked Daily: 0 Information on smoking cessation initiated: No Hx Alcohol Use: No Drug/Substance Use Hx: No Substance Use Type: None Hx Substance Use Treatment: No Review of Systems - Review of Systems Able to Perform ROS?: Yes Comments:: 08/17/18 16:51 General: denied fever, chills, night sweats. HEENT: denied sore throat, rhinorrhea, ear pain. Heart: admitted to chest pain. denied palpitations, syncope, lower extremity swelling, diaphoresis. Respiratory: admitted to shortness of breath. denied cough, sputum production, hemoptysis. Abdomen: denied abdominal pain, nausea, vomiting, diarrhea, constipation, blood in stool. : denied dysuria, increased urinary frequency, hematuria, urinary incontinence , flank pain. Back: denied back pain. Musculoskeletal: admitted to bilateral lower extremity pain, bilateral lower extremity swelling. Neurological: denied headache, dizziness, numbness, tingling, weakness. Skin: admitted to ecchymoses to left ankle. *Physical Exam - Vital Signs Last Vital Signs Temp Pulse Resp BP Pulse Ox 98.7 F 91 H 20 135/72 100 08/17/18 15:50 08/17/18 15:50 08/17/18 15:50 08/17/18 15:50 08/17/18 15:50 - Physical Exam Comments: 08/17/18 16:53 Constitutional: Well-nourished, Well-developed, appearing stated age. HEENT: head is normocephalic, atraumatic. EOMI. PERRLA. Neck: supple. Full ROM. Heart: regular rhythm. systolic murmur noted loudest in the mitral area. Lungs: clear to auscultation bilaterally. no crackles, rhonchi or wheezing. no stridor. Abdomen: soft, nontender. normal bowel sounds. no rebound, guarding, masses. Extremities: Peripheral pulses intact and equal. 1+ RLE pitting edema up to lindo. trace LLE pitting edema. tenderness to palpation of LLE. Neurological: CN 2-12 grossly intact. Moves all four extremities. Psych: awake, alert, oriented x3. Follows commands. Answers questions appropriately. ED Treatment Course - LABORATORY CBC & Chemistry Diagram: 08/17/18 16:15 08/17/18 16:15 Medical Decision Making - Medical Decision Making 08/17/18 17:30 77 year old female with above PMH presented to ED for multiple problems. Left ankle bruising without injury. Chest pain with shortness of breath x2 weeks, worsening over 2 days. Bilateral lower extremity cramping. Initial Vital Signs Temp Pulse Resp BP Pulse Ox 98.7 F 91 H 20 135/72 100 08/17/18 15:50 08/17/18 15:50 08/17/18 15:50 08/17/18 15:50 08/17/18 15:50 Afebrile. No tachycardia. No tachypnea. Mild hypertension. No hypoxia on room air. Pending CXR, EKG, bilateral LE duplex US, CTA chest, Coags, CBC, CMP, BNP. 08/17/18 17:32 CBC WBC 9.5 K/mm3 (4.0-10.0) 08/17/18 16:15 RBC 4.67 M/mm3 (3.60-5.2) 08/17/18 16:15 Hgb 14.0 GM/dL (10.7-15.3) 08/17/18 16:15 Hct 40.5 % (32.4-45.2) 08/17/18 16:15 MCV 86.6 fl (80-96) 08/17/18 16:15 MCH 29.9 pg (25.7-33.7) 08/17/18 16:15 MCHC 34.5 g/dl (32.0-36.0) 08/17/18 16:15 RDW 16.1 % (11.6-15.6) H 08/17/18 16:15 Plt Count 269 K/MM3 (134-434) 08/17/18 16:15 MPV 8.3 fl (7.5-11.1) 08/17/18 16:15 Absolute Neuts (auto) 6.3 K/mm3 (1.5-8.0) 08/17/18 16:15 Neutrophils % 66.4 % (42.8-82.8) D 08/17/18 16:15 Lymphocytes % 23.0 % (8-40) D 08/17/18 16:15 Monocytes % 8.2 % (3.8-10.2) D 08/17/18 16:15 Eosinophils % 2.0 % (0-4.5) D 08/17/18 16:15 Basophils % 0.4 % (0-2.0) 08/17/18 16:15 Nucleated RBC % 0 % (0-0) 08/17/18 16:15 No leukocytosis. No anemia. CMP Sodium 141 mmol/L (136-145) 08/17/18 16:15 Potassium 5.0 mmol/L (3.5-5.1) 08/17/18 16:15 Chloride 104 mmol/L (98-107) 08/17/18 16:15 Carbon Dioxide 31 mmol/L (21-32) 08/17/18 16:15 Anion Gap 6 MMOL/L (8-16) L 08/17/18 16:15 BUN 29 mg/dL (7-18) H 08/17/18 16:15 Creatinine 1.0 mg/dL (0.55-1.3) 08/17/18 16:15 Creat Clearance w eGFR 53.62 (>60) 08/17/18 16:15 Random Glucose 97 mg/dL (74-106) 08/17/18 16:15 Calcium 9.3 mg/dL (8.5-10.1) 08/17/18 16:15 Total Bilirubin 0.7 mg/dL (0.2-1) 08/17/18 16:15 AST 28 U/L (15-37) 08/17/18 16:15 ALT 29 U/L (13-61) 08/17/18 16:15 Alkaline Phosphatase 78 U/L (45-117) 08/17/18 16:15 Creatine Kinase Cancelled 08/17/18 16:40 Troponin I Cancelled 08/17/18 16:40 Total Protein 6.8 g/dl (6.4-8.2) 08/17/18 16:15 Albumin 3.8 g/dl (3.4-5.0) 08/17/18 16:15 No electrolyte abnormality. No LUCIANA. Pt is dehydrated. 500cc bolus normal saline ordered. No LFT abnormality. Troponin and CK normal. INR, PTT INR 3.56 (0.83-1.09) H 08/17/18 16:15 Increased INR. - Pt stated she recently has had trouble keeping the INR therapeutic; last had it checked x1 month ago 08/17/18 18:21 HEART score = 5 I advised the patient to be admitted to the hospital for chest pain, she refused. Pending CXR, Left ankle XR. 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 Jackson, who recommended admission to [facility] for observation. He stated if the patient chooses to AMA that she can call his office for an early appointment and he will see her early next week. He advised skipping the next dose of coumadin and resuming her normal dosing afterwards. Pt stated she will wait for the CTA. *DC/Admit/Observation/Transfer Diagnosis at time of Disposition: Muscle cramps - Referrals - Patient Instructions Additional Instructions: You were seen today for ankle pain and chest pain. Your ultrasound of your legs showed no blood clots. Your lab work showed your INR is 3.56. We advised you stay in the hospital for observation of your chest pain, but you refused. I spoke with Dr. Jackson, who also advised you to stay in the hospital, but stated if you left against medical advice you can call his office for an early appointment next week, and he will check your INR. He stated to SKIP your next dose of coumadin, and then resume your normal dosing the next day. - Post Discharge Activity
[2018-08-17 16:42] LABS: BASO % 0.4 % (0-2.0); HEMATOCRIT 40.5 % (32.4-45.2); MCH 29.9 pg (25.7-33.7); MCHC 34.5 g/dl (32.0-36.0); MEAN CELL VOLUME 86.6 fl (80-96); MEAN PLT VOLUME 8.3 fl (7.5-11.1); MONO % 8.2 % (3.8-10.2); NEUT % 66.4 % (42.8-82.8); PLATELET COUNT 269 K/MM3 (134-434); RBC 4.67 M/mm3 (3.60-5.2); RDW 16.1 % (11.6-15.6); WHITE BLOOD COUNT 9.5 K/mm3 (4.0-10.0)
[2018-08-17 16:58] LABS: INR 3.56 (0.83-1.09); PROTHROMBIN TIME (PATIENT) 42.6 SEC (9.7-13.0)
[2018-08-17 17:26] LABS: ALBUMIN 3.8 g/dl (3.4-5.0); ALK PHOS 78 U/L (45-117); ANION GAP 6 MMOL/L (8-16); BILIRUBIN,TOTAL 0.7 mg/dL (0.2-1); BLOOD UREA NITROGEN 29 mg/dL (7-18); CALCIUM 9.3 mg/dL (8.5-10.1); CHLORIDE 104 mmol/L (98-107); CO2 31 mmol/L (21-32); GLUCOSE,RANDOM 97 mg/dL (74-106); SGOT/AST 28 U/L (15-37); SGPT/ALT 29 U/L (13-61); SODIUM 141 mmol/L (136-145); TOT PROT 6.8 g/dl (6.4-8.2)
[2018-08-17 18:26] LABS: ACTIVATED PTT 47.1 SECONDS (25.2-36.5)
--- NOTE | 2018-08-17 18:38 | PDOC ---
Attending Attestation - Resident Resident Name: Di Davis - ED Attending Attestation I have performed the following: I have examined & evaluated the patient, The case was reviewed & discussed with the resident, I agree w/resident's findings & plan, Exceptions are as noted - HPI HPI: 08/17/18 18:34 This is a 77 year old female with a significant past medical history of HTN, HLD , b/l DVT (on Coumadin), asthma, hypothyroidism, CVA, and gastritis, who presents to the emergency department today complaining of bilateral lower extremity cramping and intermittent chest pain for 2 days. Patient states both of her legs cramp and swell, getting progressively worse with time. Patient also complains of intermittent chest pain episodes which began two weeks ago, but have gotten progressively worse in the past 2 days. She describes them as sharp, lasting 15-20 seconds and occur 3 times a day. Patient notes that her chest pain radiates into her neck and left arm. Patients daughter notes that patient has been experiencing progressively worsening SOB with exertion, which has been most prominent the last 2 days. Patient has a history of leg swelling and cramping, but she notes this is worse and more frequent than usual. Patient states she recently traveled to [place], on a 3 hour plane ride. States her INR levels are often labile, 1 month ago they were subtherapeutic. Denies fever, chills, dizziness, weakness, numbness, abd pain, headaches. Denies n/v/d. Denies dysuria, frequency, urgency. PCP: none reported Surgical hx: Breast biopsy, hysterectomy - Physicial Exam PE: 08/17/18 18:37 agree with resident exam - Medical Decision Making 08/17/18 18:39 77yo F hx CAD, HTN, DVT on coumadin, HL, hypothyroid presents to the ED with CP radiating to L arm and neck, FIERRO, and leg cramping. Vitals wnl, no hypoxia, tachypnea. +LE edema and calf pain. DDx includes but not limited to DVT/PE vs ACS vs CHF. HS is 5. THus far, labs wnl, trop neg. INR elevated to 3.5. In light of HS of 5, plan was to admit pt for BHAKTI but pt does not want to stay due to the holiday tomorrow. Case discussed with Dr. Jackson (who pt identifies as her PMD) - he agrees pt should be admitted for BHAKTI given high heart score. HE also recommends pt to skip coumadin tonight and resume tomorrow. HE can see her early next week. Pt amenable to CTA to r/o PE given report that her INR was subtherapeutic. LE US negative. She will not stay overnight but will stay for the CTA at this time. The patient is clinically sober, free from distracting injury, appears to have intact insight and judgment and reason and in my opinion has the capacity to make decisions. The patient presents with CP, FIERRO, LE cramping. I have explained that I am concerned that this may represent a PE or heart attack or heart failure; she has verbalized an understanding of my concerns. I have told the patient that while her labs were mostly normal, she could still have PE, ACS , CHF. I have discussed the need for observation to get more information about potential causes of the patients CP/FIERRO. I have told the patient that if they leave, they could get much worse, could become critically ill, and could possibly become disabled or . I have offered to give the patient more pain medication. I have asked them to stay in the hospital for serial troponin exams. I have discussed these concerns with the patients family who is at the bedside and they are unable to convince them to stay for further evaluation. SHe is unwilling to stay overnight for monitoring. SHe is refusing any further care and is leaving against medical advice. I am unable to convince the patient to stay, I have asked her to return as soon as possible to complete her evaluation. I have spoken with Dr. Jackson, her PMD. I have answered all her questions. <Rakan Schmitz - Last Filed: 08/17/18 18:39> - Medical Decision Making 08/17/18 18:30 Case d/w Dr. Jackson, cardiology. <Jacquie Lebron - Last Filed: 08/17/18 18:48>
[2018-08-17 18:47] LABS: N-TERMINAL BNP 105.6 pg/ml (5-450)
[2018-08-17 22:24] VITALS: BP 142/90; PULSE 85; TEMP 97.5
--- NOTE | 2018-08-17 22:42 | PDOC ---
*Physical Exam - Vital Signs Last Vital Signs Temp Pulse Resp BP Pulse Ox 97.5 F L 85 20 142/90 100 08/17/18 22:20 08/17/18 22:20 08/17/18 22:20 08/17/18 22:20 08/17/18 22:20 ED Treatment Course - LABORATORY CBC & Chemistry Diagram: 08/17/18 16:15 08/17/18 16:15 - ADDITIONAL ORDERS Additional order review: Laboratory Results 08/17/18 08/17/18 08/17/18 16:40 16:15 16:15 PT with INR 42.60 H INR 3.56 H PTT (Actin FS) 47.1 H Sodium 141 Potassium 5.0 Chloride 104 Carbon Dioxide 31 Anion Gap 6 L BUN 29 H Creatinine 1.0 Creat Clearance w eGFR 53.62 Random Glucose 97 Calcium 9.3 Total Bilirubin 0.7 AST 28 ALT 29 Alkaline Phosphatase 78 Creatine Kinase Cancelled 147 Troponin I Cancelled < 0.02 B-Natriuretic Peptide 105.6 Total Protein 6.8 Albumin 3.8 08/17/18 16:15 RBC 4.67 MCV 86.6 MCHC 34.5 RDW 16.1 H MPV 8.3 Neutrophils % 66.4 D Lymphocytes % 23.0 D Monocytes % 8.2 D Eosinophils % 2.0 D Basophils % 0.4 Medical Decision Making - Medical Decision Making Patient signed out to me with chest pain and high heart score. 1st Troponin negative, refused second Troponin, and completed CTA chest without evidence for PE. Currently not complaining of chest pain and would like to leave AMA. Patient is fully aware of need for troponin and is competent to AMA. 08/17/18 22:36 *DC/Admit/Observation/Transfer Diagnosis at time of Disposition: Muscle cramps Chest pain Qualifiers: Chest pain type: unspecified Qualified Code(s): R07.9 - Chest pain, unspecified - Discharge Dispostion Disposition: HOME Condition at time of disposition: Stable Decision to Admit order: No - Referrals - Patient Instructions Printed Discharge Instructions: DI for Atypical Chest Pain Additional Instructions: You were seen today for ankle pain and chest pain. Your ultrasound of your legs showed no blood clots and your CTA does not show any pulmonary embolism. Your lab work showed your INR is 3.56. We advised you stay in the hospital for observation of your chest pain, but you refused. This puts you at risk for worsening symptoms, disability, or even . I spoke with Dr. Jackson, who also advised you to stay in the hospital, but stated if you left against medical advice you can call his office for an early appointment next week, and he will check your INR. He stated to SKIP your next dose of Coumadin, and then resume your normal dosing the next day. Print Language: BELGIAN - Post Discharge Activity
[2018-08-17 22:45] LABS: URINE APPEARANCE CLEAR; URINE BILIRUBIN NEGATIVE (<2.0 mg/dL); URINE COLOR YELLOW; URINE GLUCOSE (UA) NEGATIVE (NEGATIVE); URINE KETONE NEGATIVE (NEGATIVE); URINE LEUK ESTERASE TRACE (NEGATIVE); URINE NITRITE NEGATIVE (NEGATIVE); URINE PROTEIN NEGATIVE (NEGATIVE); URINE UROBILINOGEN NEGATIVE mg/dL (0.2-1.0)
[2018-08-17 22:51] LABS: URINE BACTERIA RARE /hpf (NONE SEEN); URINE MUCUS RARE
--- NOTE | 2018-08-19 10:15 | EKG ---
Test Reason : Blood Pressure : / mmHG Vent. Rate : 077 BPM Atrial Rate : 077 BPM P-R Int : 128 ms QRS Dur : 074 ms QT Int : 404 ms P-R-T Axes : 045 011 033 degrees QTc Int : 457 ms NORMAL SINUS RHYTHM NORMAL ECG WHEN COMPARED WITH ECG OF 21-FEB-2018 15:17, NO SIGNIFICANT CHANGE WAS FOUND Confirmed by LUIS A JOSEPH MD ([id number]) on 08/19/2018 10:14:58 AM Referred By: Confirmed By:LUIS A JOSEPH MD
== END 2018-08-17 23:11 | disposition left against medical advice (07) ==
LOC: JER 15:46
DX: R07.9 Chest pain, unspecified (principal); M62.838 Other muscle spasm; M25.572 Pain in left ankle and joints of left foot; S90.02XA Contusion of left ankle, initial encounter; R25.2 Cramp and spasm; I10 Essential (primary) hypertension; Z86.73 Personal history of transient ischemic attack (TIA), and cerebral infarction without residual deficits; Z86.718 Personal history of other venous thrombosis and embolism; Z79.01 Long term (current) use of anticoagulants; J44.9 Chronic obstructive pulmonary disease, unspecified; E78.5 Hyperlipidemia, unspecified; E03.9 Hypothyroidism, unspecified; R73.03 Prediabetes; J45.909 Unspecified asthma, uncomplicated; Z86.69 Personal history of other diseases of the nervous system and sense organs
CPT/HCPCS: 36415; 71046-TC-FY; 71275-TC; 73610-TC-LT-FY; 73630-TC-LT; 80053; 81003; 81015; 82550; 83880; 84484; 85025; 85610; 85730; 87086; 87186; 93005; 93010; 93970-TC; 99282-25

== ENCOUNTER 2018-08-23 17:46 | Observation (INO) | payer OTHER ==
--- NOTE | 2018-08-23 18:10 | PDOC ---
Rapid Medical Evaluation Time Seen by Provider: 08/23/18 18:08 Medical Evaluation: Allergies Allergy/AdvReac Type Severity Reaction Status Date / Time Penicillins Allergy Swelling Verified 08/23/18 18:07 08/23/18 18:08 Pt c/o: chest discomfort since last wednesday but worsening. no sob, dizziness Pt on brief exam: vss lcta Pt ordered for cardiac w/u Pt to proceed to the ED Discharge Disposition - Diagnosis Chest pain - Referrals Referrals: Morales Jackson MD [Primary Care Provider] - - Patient Instructions - Post Discharge Activity
[2018-08-23 18:13] VITALS: BMI 30.2
[2018-08-23 19:43] LABS: BASO % 0.8 % (0-2.0); EOS % 1.6 % (0-4.5); HEMATOCRIT 39.7 % (32.4-45.2); HEMOGLOBIN 13.5 GM/dL (10.7-15.3); LYMPH % 28.5 % (8-40); MCH 29.6 pg (25.7-33.7); MCHC 34.1 g/dl (32.0-36.0); MEAN CELL VOLUME 86.9 fl (80-96); MONO % 8.5 % (3.8-10.2); NEUT % 60.6 % (42.8-82.8); PLATELET COUNT 277 K/MM3 (134-434); RBC 4.57 M/mm3 (3.60-5.2); RDW 15.7 % (11.6-15.6); WHITE BLOOD COUNT 7.6 K/mm3 (4.0-10.0)
[2018-08-23 20:08] LABS: INR 2.78 (0.83-1.09); PROTHROMBIN TIME (PATIENT) 33.2 SEC (9.7-13.0)
[2018-08-23 20:28] LABS: ALBUMIN 3.6 g/dl (3.4-5.0); ALK PHOS 77 U/L (45-117); ANION GAP 6 MMOL/L (8-16); BILIRUBIN,TOTAL 0.6 mg/dL (0.2-1); BLOOD UREA NITROGEN 17 mg/dL (7-18); CALCIUM 8.7 mg/dL (8.5-10.1); CHLORIDE 106 mmol/L (98-107); CO2 30 mmol/L (21-32); CREATININE 0.8 mg/dL (0.55-1.3); GLUCOSE,RANDOM 98 mg/dL (74-106); SGPT/ALT 22 U/L (13-61); SODIUM 142 mmol/L (136-145); TOT PROT 6.6 g/dl (6.4-8.2)
[2018-08-23 20:29] LABS: MAGNESIUM 2.3 mg/dL (1.8-2.4); SGOT/AST 26 U/L (15-37)
--- NOTE | 2018-08-23 20:37 | PDOC ---
History of Present Illness - General Chief Complaint: Chest Pain Stated Complaint: SENT BY PCP Time Seen by Provider: 08/23/18 18:08 History Source: Patient Exam Limitations: Language Barrier (declined using phone moisture meter operator services. used daughter who is bilingual ) - History of Present Illness Initial Comments: 08/23/18 22:31 77 yo F with a hx of HLD, HTN, asthma, and DVT (2 years ago; on warfarin) presents to the emergency department with chest pain that began 2 months ago that have progressively worsened. Per the patient, she states she has multiple episodes per day of chest pain in the left lower chest that radiates to the neck and back that is described as sharp, 10/10 when it occurs, and lasts for approximately 15-20 minutes while at rest terminating on its own. She states during these episodes she has SOB, diaphoresis, lightheadedness, and weakness. Last episode was at 10:30 am today. Her last stress test was 1 yr ago and was normal and states she had a cath 10 years ago with no stents. Denies the following: fever, chills, nausea, vomiting, visual changes, abdominal pain, dysuria, hematuria, hematochezia, melena, and leg pain/swelling. Pmhx: Refer to above Shx: Hysterectomy Meds: Refer to medication list Allergies: PCN Social: Denies tobacco, alcohol, and substance abuse. Familial hx: father [place] Past History - Past Medical History Allergies/Adverse Reactions: Allergies Allergy/AdvReac Type Severity Reaction Status Date / Time Penicillins Allergy Swelling Verified 08/23/18 18:07 Home Medications: Ambulatory Orders Albuterol Sulfate Inhaler - [Ventolin HFA Inhaler -] 1 - 2 inh PO Q4H 04/15/17 Budesonide/Formeterol Fumarate [SYMBICORT 160/4.5mcg -] 2 inh PO BID 04/15/17 Cholecalciferol (Vitamin D3) [Vitamin D3] 10,000 unit PO WEEKLY 04/15/17 Fluticasone Prop 0.05% Nasal [Flonase -] 1 - 2 spray NS BID 04/15/17 Levothyroxine [Synthroid -] 25 mcg PO DAILY 04/15/17 Linaclotide [Linzess] 290 mcg PO DAILY 04/15/17 Losartan/Hydrochlorothiazide [Losartan-Hctz 100-25 mg Tab] 1 each PO DAILY 04/15 Montelukast Na [Singulair -] 10 mg PO HS 04/15/17 Pantoprazole Sodium [Protonix -] 40 mg PO DAILY 04/15/17 Warfarin Sodium [Coumadin] 2.5 mg PO ASDIR 04/15/17 levETIRAcetam [Keppra -] 750 mg PO BID 04/15/17 Salmeterol/Fluticasone [Advair 250Mcg/50Mcg -] 1 inh PO BID 05/02/17 Nitroglycerin 0.4 mg SL PRN 06/13/17 Simvastatin 40 mg PO HS 06/13/17 Albuterol 0.083% Nebulizer Prabha [Ventolin 0.083% Nebulizer Soln -] 1 amp NEB Q6H PRN #0 amp 06/15/17 Diazepam [Valium] 5 mg PO DAILY #10 tablet MDD 10 08/21/17 Nitrofurantoin Monohyd/M-Cryst [Macrobid -] 100 mg PO BID #14 capsule 08/26/17 Albuterol 0.083% Nebulizer Prabha [Ventolin 0.083% Nebulizer Soln -] 1 neb NEB Q4H PRN #20 vial 02/15/18 Prednisone 5 mg PO DAILY #7 tab.ds.pk 02/23/18 Albuterol 0.083% Nebulizer Prabha [Ventolin 0.083% Nebulizer Soln -] 1 neb NEB QID #60 vial 03/10/18 Anemia: No Asthma: Yes Cancer: No Cardiac Disorders: Yes (angina) CVA: Yes (tia) COPD: Yes CHF: No DVT: No Dementia: No Diabetes: No GI Disorders: Yes (ULCER, HERNIA) Disorders: No HTN: Yes Hypercholesterolemia: Yes Liver Disease: No Seizures: Yes Thyroid Disease: Yes - Surgical History Abdominal Surgery: No Appendectomy: No Cardiac Surgery: No Cholecystectomy: No Lung Surgery: No Neurologic Surgery: No Orthopedic Surgery: No - Immunization History Immunization Up to Date: Yes - Suicide/Smoking/Psychosocial Hx Smoking Status: No Smoking History: Never smoked Have you smoked in the past 12 months: No Number of Cigarettes Smoked Daily: 0 Information on smoking cessation initiated: No Hx Alcohol Use: No Drug/Substance Use Hx: No Substance Use Type: None Hx Substance Use Treatment: No Review of Systems - Review of Systems Able to Perform ROS?: Yes Is the patient limited Kiswahili proficient: Yes Constitutional: Yes: Weakness. No: Chills, Diaphoresis, Fever HEENTM: No: Recent change in vision, Ear Pain, Nose Pain, Throat Pain, Mouth Pain Respiratory: Yes: Shortness of Breath. No: Cough, Hemoptysis Cardiac (ROS): Yes: Chest Pain, Lightheadedness. No: Irregular Heart Rate, Palpitations ABD/GI: No: Constipated, Diarrhea, Nausea, Poor Appetite, Poor Fluid Intake, Rectal Bleeding, Vomiting, Abdominal cramping, Tarry Stools : No: Burning, Dysuria *Physical Exam - Vital Signs Last Vital Signs Temp Pulse Resp BP Pulse Ox 98.5 F 89 16 159/67 100 08/23/18 18:07 08/23/18 18:07 08/23/18 18:07 08/23/18 18:07 08/23/18 18:07 Moderate Sedation - Procedure Monitoring Vital Signs: Procedure Monitoring Vital Signs Temperature 98.5 F 08/23/18 18:07 Pulse Rate 89 08/23/18 18:07 Respiratory Rate 16 08/23/18 18:07 Blood Pressure 159/67 08/23/18 18:07 O2 Sat by Pulse Oximetry (%) 100 08/23/18 18:07 ED Treatment Course - LABORATORY CBC & Chemistry Diagram: 08/25/18 06:43 08/25/18 06:43 - ADDITIONAL ORDERS Additional order review: Laboratory Results 08/23/18 08/23/18 19:34 19:34 PT with INR 33.20 H INR 2.78 H Sodium 142 Potassium 4.0 Chloride 106 Carbon Dioxide 30 Anion Gap 6 L BUN 17 Creatinine 0.8 Creat Clearance w eGFR > 60 Random Glucose 98 Calcium 8.7 Magnesium 2.3 Total Bilirubin 0.6 AST 26 ALT 22 Alkaline Phosphatase 77 Creatine Kinase 114 Troponin I < 0.02 Total Protein 6.6 Albumin 3.6 08/23/18 19:34 RBC 4.57 MCV 86.9 MCHC 34.1 RDW 15.7 H MPV 8.0 Neutrophils % 60.6 Lymphocytes % 28.5 D Monocytes % 8.5 Eosinophils % 1.6 Basophils % 0.8 Medical Decision Making - Medical Decision Making 08/23/18 22:36 A call was placed to Dr. Gonzales for admission (patient states this is her primary medical doctor as well as wireless sales consultant). Dr. Bhandari was financial services professional and accepted the admission and stated to have Dr. Jackson's name placed as the admitting provider for obs telemetry. *DC/Admit/Observation/Transfer Diagnosis at time of Disposition: Chest pain - Referrals - Patient Instructions - Post Discharge Activity
[2018-08-23 20:42] LABS: URINE APPEARANCE SLCLOUDY; URINE BILIRUBIN NEGATIVE (<2.0 mg/dL); URINE COLOR AMBER; URINE GLUCOSE (UA) NEGATIVE (NEGATIVE); URINE KETONE NEGATIVE (NEGATIVE); URINE LEUK ESTERASE 3+ (NEGATIVE); URINE NITRITE NEGATIVE (NEGATIVE); URINE PROTEIN NEGATIVE (NEGATIVE); URINE UROBILINOGEN NEGATIVE mg/dL (0.2-1.0)
[2018-08-23 21:02] LABS: EPI CELLS MODERATE /HPF (FEW); URINE BACTERIA MANY /hpf (NONE SEEN); URINE MUCUS MANY
--- NOTE | 2018-08-23 21:17 | PDOC ---
Attending Attestation - Resident Resident Name: EvangelinaChivo - ED Attending Attestation I have performed the following: I have examined & evaluated the patient, The case was reviewed & discussed with the resident, I agree w/resident's findings & plan, Exceptions are as noted - Physicial Exam PE: 08/23/18 21:55 awake alert lungs clear bilaterally heart rrr no mrg. abd soft nt nd. ext wwp mild pitting edema R >L. nuero alert oriented x 3. - Medical Decision Making 08/23/18 21:56 77 yo F with h/o HTN HLD bilat DVT ( on coumadin ) DM cva here with c/o chest pain. was here for same one week ago left ama. followed by dr. jackson, pt is chest pain free now. on exam normal cardiac lung exam. mild edema. differential acs, infection such as pna, pe unlikley as negative cta one week ago. plan labs trop. will admit to telemetry. dw dr. Bhandari, covering for denilson, will admit pt. <Mary Casey - Last Filed: 08/23/18 21:55> - HPI HPI: 08/23/18 22:03 This is a 77 year old female with a significant past medical history of HTN, HLD , b/l DVT (on Coumadin), asthma, hypothyroidism, CVA, and gastritis who presents to the emergency department today complaining of chest pain today. Patient states the chest pain has been worsening over the last few days with radiation to the jaw, neck, and back. Patient follows with Dr. Jackson, cardiology, who told her to come to the ER for further evaluation. Patient was here 1 week ago for similar chest pain but left after 1 troponin. Patient also had a CT done at that time which was negative for PE. Patient reports having a cath 10 years ago and had a stress test 1 year ago which was normal. Denies fever, chills, dizziness, weakness, numbness, abd pain, headaches. Denies n/v/d. Denies dysuria, frequency, urgency. PCP: none reported Surgical hx: Breast biopsy, hysterectomy <Lubna Armando - Last Filed: 08/23/18 22:04> Heart Score/ECG Review #1 General ECG Interpretation: Sinus Rhythm, Normal Rate (73), Normal Intervals, No acute ischemic changes <Mary Casey - Last Filed: 08/23/18 21:55>
--- NOTE | 2018-08-24 09:12 | CON.CARD ---
Cardiology Consult (text) - Consultation Consultation Note: Consult Dictated 77-year-old female with complicated past medical history of asthma, hypertension , hyperlipidemia, COPD, hypothyroidism, seizures, chronic DVTs on Coumadin, refused IVC filter presents with chest pain. Patient went to [facility] for chest pain but left AMA. In [place], she had extensive workup in with a diagnosis of aortic stenosis and suggested cardiac cath but patient refused. She continues to an exertional substernal chest pain along with numbness of left arm. Patient complains of a progressive chest pain occuring more frequently over the past week (currently a 7/10 in intensity). CARDIAC DATA: Stress- 06/13 Dobutamine NST- 93%mphr, no ischemia, lvef 78% Echo 04/12- [facility]- [facility] lv fxn, moderate as, mild phtn, mild mr IMP: Aortic stenosis, unclear severity Possible CAD, angina Hx of DVTs on warfarin REC: 1. Serial enzymes 2. Echo 3. Telemetry 4. Obtain records from [place] 5. INR 2-3 6. Further reccs pending above diagnostics and review of records Full consult Dictated
--- NOTE | 2018-08-24 09:44 | CONS ---
DATE OF CONSULTATION: DATE OF DICTATION: 08/24/2018 HISTORY: Consultation is requested by the emergency department for chest pain. The patient is a 77-year-old female who spends part of her time in [place] and part of her time in [place]. She has a past medical history of chronic COPD/asthma, hypertension, hyperlipidemia, hypothyroidism, seizure disorder, chronic DVTs on Coumadin, refused IVC filter, who presents to the emergency department for evaluation of chest pain. She states for the last week she has had exertional chest discomfort substernal, left sided, radiating to the left shoulder, associated with mild chronic dyspnea on exertion. No palpitations, PND, or orthopnea. No syncope. In [place] she underwent an evaluation for similar symptoms. She describes having a stress test and then was advised to have a cardiac catheterization which she refused. According to review of records, there is also some degree of aortic stenosis present. In the emergency room she is alert and oriented, in no acute distress. Her 12-lead EKG shows sinus rhythm with no acute ST changes. ALLERGIES: She is allergic to PENICILLIN. MEDICATIONS: Her home medications were reviewed and include Keppra 750 b.i.d., warfarin 2.5 daily, simvastatin 40 at bedtime. Advair, Protonix 40 mg p.o. daily, sublingual nitroglycerin p.r.n. Singulair 10 mg at bedtime, Hyzaar 100/25 daily, Synthroid 25 mcg daily, fluticasone, vitamin D, Symbicort. FAMILY HISTORY: Noncontributory. SOCIAL HISTORY: Patient denies smoking. PHYSICAL EXAMINATION: Vital Signs: Temperature afebrile, 98.5. Pulse 78. Blood pressure was initially 141/80, currently 128/74. O2 saturation 97% on room air. HEENT: Anicteric. Neck: No JVD, no bruits. Heart: S1, S2. There is a systolic murmur 2/6 audible throughout the precordium. Chest: Clear, without wheezing or rales. Abdomen: Soft, nontender. Extremities: No edema. LABORATORY: White count was normal. INR 2.78, therapeutic. Basic metabolic profile was normal, and first set of cardiac enzymes was negative. CHEST X-RAY: No acute process. IMPRESSION: 1. Aortic stenosis, unclear severity. 2. Possible coronary artery disease with anginal symptoms. 3. History of deep vein thromboses, chronic warfarin therapy. RECOMMENDATIONS: 1. Serial cardiac enzymes. 2. Echocardiogram to assess LV function and degree of aortic stenosis. 3. Telemetry to rule out arrhythmia. 4. Will try to obtain records from [place] and review. 5. Keep INR 2-3. 6. Further recommendations pending above diagnostics and review of records. If her clinical history is confirmed, with her symptoms, cardiac catheterization seems like a reasonable next step. LUIS A JOSEPH M.D. [id number]
[2018-08-24] MEDS ORDERED: NITROGLYCERIN SUBLINGUAL 1/150 0.4 MG TAB SL PRN (10:30)
[2018-08-24] MEDS ORDERED: ACETAMINOPHEN 325 MG TABLET (FP) PO PRN (10:32)
--- NOTE | 2018-08-24 10:34 | HP ---
Admitting History and Physical - Admission Chief Complaint: chest pain for 2 months History of Present Illness: Ms Jay Cooper is a 77 year old female from [place] who comes in with complaints of chest pain for 2 months but worsening these past 3 weeks. She says the pain is sharp, retrosternal, radiates around her L rib and up to her neck. She says the pain comes and goes and while she does not know of things that cause or relieve it, it is made worse by deep breathing. She endorses dyspnea on exertion and swelling, however both of these symptoms are chronic and unchanged. She does state she feels like she gets tired easier. She denies fevers, chills, lightheadedness, dizziness, passing out, shortness of breath at rest, nausea, vomiting, abdominal pain, diarrhea, constipation, or difficult/ pain on urination. She is currently chest pain free. 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: CVA, Seizure ( last seizure >10yrs ago), Vertigo Cardiovascular: Yes: HTN Pulmonary: Yes: Asthma Gastrointestinal: Yes: Gastritis, Peptic Ulcer Disease Musculoskeletal: Yes: Other (arthritis (type not specificed)) ENT: Yes: Sinusitis Endocrine: Yes: Hypothyroidism - Past Surgical History Past Surgical History: Yes: Breast Biopsy, Hysterectomy - Smoking History Smoking history: Never smoked Have you smoked in the past 12 months: No Aproximately how many cigarettes per day: 0 - Alcohol/Substance Use Hx Alcohol Use: No History of Substance Use: reports: None - Social History ADL: Independent Occupation: retired 20 yrs ago History of Recent Travel: Yes (traveled from [place]) Home Medications - Allergies Allergies/Adverse Reactions: Allergies Allergy/AdvReac Type Severity Reaction Status Date / Time Penicillins Allergy Swelling Verified 08/23/18 18:07 - Home Medications Home Medications: Ambulatory Orders Albuterol Sulfate Inhaler - [Ventolin HFA Inhaler -] 1 - 2 inh PO Q4H 04/15/17 Budesonide/Formeterol Fumarate [SYMBICORT 160/4.5mcg -] 2 inh PO BID 04/15/17 Cholecalciferol (Vitamin D3) [Vitamin D3] 10,000 unit PO WEEKLY 04/15/17 Fluticasone Prop 0.05% Nasal [Flonase -] 1 - 2 spray NS BID 04/15/17 Levothyroxine [Synthroid -] 25 mcg PO DAILY 04/15/17 Linaclotide [Linzess] 290 mcg PO DAILY 04/15/17 Losartan/Hydrochlorothiazide [Losartan-Hctz 100-25 mg Tab] 1 each PO DAILY 04/15 Montelukast Na [Singulair -] 10 mg PO HS 04/15/17 Pantoprazole Sodium [Protonix -] 40 mg PO DAILY 04/15/17 Warfarin Sodium [Coumadin] 2.5 mg PO ASDIR 04/15/17 levETIRAcetam [Keppra -] 750 mg PO BID 04/15/17 Salmeterol/Fluticasone [Advair 250Mcg/50Mcg -] 1 inh PO BID 05/02/17 Nitroglycerin 0.4 mg SL PRN 06/13/17 Simvastatin 40 mg PO HS 06/13/17 Albuterol 0.083% Nebulizer Prabha [Ventolin 0.083% Nebulizer Soln -] 1 amp NEB Q6H PRN #0 amp 06/15/17 Diazepam [Valium] 5 mg PO DAILY #10 tablet MDD 10 08/21/17 Nitrofurantoin Monohyd/M-Cryst [Macrobid -] 100 mg PO BID #14 capsule 08/26/17 Albuterol 0.083% Nebulizer Prabha [Ventolin 0.083% Nebulizer Soln -] 1 neb NEB Q4H PRN #20 vial 02/15/18 Prednisone 5 mg PO DAILY #7 tab.ds.pk 02/23/18 Albuterol 0.083% Nebulizer Prabha [Ventolin 0.083% Nebulizer Soln -] 1 [facility] NEB QID #60 vial 03/10/18 Family Disease History - Family Disease History Family Disease History: Diabetes: Father ( of [place]), Mother ( of uterine cancer), Heart Disease: Father, Respiratory: Sister (asthma) Review of Systems Findings/Remarks: Full review of systems obtained, as per HPI and otherwise negative. Physical Examination Vital Signs: Vital Signs Temperature 36.9 C 08/23/18 18:07 Pulse Rate 78 08/24/18 06:10 Respiratory Rate 17 08/24/18 06:10 Blood Pressure 128/74 08/24/18 06:10 O2 Sat by Pulse Oximetry (%) 99 08/24/18 06:10 Constitutional: Yes: No Distress, Calm, Obese Eyes: Yes: Conjunctiva Clear, EOM Intact, PERRL HENT: Yes: Atraumatic, Normocephalic Cardiovascular: Yes: Regular Rate and Rhythm. No: Gallop, Murmur, Rub Respiratory: Yes: Regular, CTA Bilaterally. No: Rales, Rhonchi, Wheezes Gastrointestinal: Yes: Normal Bowel Sounds, Soft. 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 heart failure Assessment/Plan: -follow up ECHO Code(s): I51.9 - HEART DISEASE, UNSPECIFIED (3) Hypothyroidism Assessment/Plan: -continue synthroid -check TSH and FT4 Code(s): E03.9 - HYPOTHYROIDISM, UNSPECIFIED Qualifiers: Hypothyroidism type: unspecified Qualified Code(s): E03.9 - Hypothyroidism , unspecified (4) DVT (deep venous thrombosis) Assessment/Plan: -continue coumadin Code(s): I82.409 - ACUTE EMBOLISM AND THOMBOS UNSP DEEP VN UNSP LOWER EXTREMITY Qualifiers: DVT location: lower extremity Chronicity: chronic (5) Hyperlipemia Assessment/Plan: -continue statin Code(s): E78.5 - HYPERLIPIDEMIA, UNSPECIFIED Qualifiers: Hyperlipidemia type: pure hypercholesterolemia Qualified Code(s): E78.00 - Pure hypercholesterolemia, unspecified (6) Hypertension Assessment/Plan: -controlled -continue home regimen Code(s): I10 - ESSENTIAL (PRIMARY) HYPERTENSION Qualifiers: Hypertension type: essential hypertension Qualified Code(s): I10 - Essential (primary) hypertension (7) Seizure disorder Assessment/Plan: -continue keppra and valium Code(s): G40.909 - EPILEPSY, UNSP, NOT INTRACTABLE, WITHOUT STATUS EPILEPTICUS
--- NOTE | 2018-08-24 11:45 | EKG ---
Test Reason : Blood Pressure : / mmHG Vent. Rate : 073 BPM Atrial Rate : 073 BPM P-R Int : 128 ms QRS Dur : 074 ms QT Int : 376 ms P-R-T Axes : 052 034 043 degrees QTc Int : 414 ms SINUS RHYTHM WITH MARKED SINUS ARRHYTHMIA OTHERWISE NORMAL ECG WHEN COMPARED WITH ECG OF 17-AUG-2018 18:03, NO SIGNIFICANT CHANGE WAS FOUND Confirmed by PRATIK GUTIÉRREZ, VALERY ([id number]) on 08/24/2018 11:44:57 AM Referred By: Confirmed By:VALERY CHRISTIE MD
[2018-08-24 12:40] LABS: INR 2.26 (0.83-1.09); PROTHROMBIN TIME (PATIENT) 26.9 SEC (9.7-13.0)
[2018-08-24] MEDS: ALBUTEROL SO4 8 GM HFA INHALER IH SCH (15:36)
--- NOTE | 2018-08-24 16:06 | ECHO ---
Name: FRANCIS KASSANDRA NIKKI Exam:Adult Echocardiogram Study Date: 08/24/2018 12:08 PM Age: 77 yrs Reason For Study: AORTIC STENOSIS Height: 61 in Weight: 160 lb BSA: 1.7 m2 MMode/2D Measurements & Calculations IVSd: 1.0 cm Ao root diam: 2.8 cm LVIDd: 4.6 cm LA dimension: 4.0 cm LVIDs: 3.4 cm LVPWd: 0.81 cm EDV(Teich): 99.4 ml LVOT diam: 2.0 cm ESV(Teich): 49.1 ml TAPSE: 2.5 cm Doppler Measurements & Calculations MV E max yash: 74.0 cm/sec Ao V2 max: 267.9 cm/sec MV A max yash: 82.9 cm/sec Ao max P.7 mmHg MV E/A: 0.89 Ao V2 mean: 188.6 cm/sec Ao mean P.1 mmHg Ao V2 VTI: 61.5 cm MERCEDEZ(I,D): 1.2 cm2 MERCEDEZ(V,D): 1.3 cm2 LV V1 max P.4 mmHg MR max yash: 506.0 cm/sec LV V1 mean P.0 mmHg MR max P.4 mmHg LV V1 max: 104.5 cm/sec LV V1 mean: 64.6 cm/sec LV V1 VTI: 23.6 cm SV(LVOT): 76.1 ml TR max yash: 264.8 cm/sec TR max P.1 mmHg Med Peak E' Yash: 9.4 cm/sec Med E/e': 7.9 Lat Peak E' Yash: 6.2 cm/sec Lat E/e': 11.9 Procedure A two-dimensional transthoracic echocardiogram with color flow and Doppler was performed. Left Ventricle The left ventricular size, thickness and function are normal. The left ventricular ejection fraction is normal. The left ventricular wall motion is normal. Right Ventricle The right ventricle is grossly normal size. Atria The left atrium is moderately dilated. The right atrium is mildly dilated. Mitral Valve There is trivial mitral valve thickening. There is no mitral valve stenosis. There is moderate mitral regurgitation. The mitral regurgitant jet is eccentrically directed. Tricuspid Valve There is mild tricuspid valve thickening. There is no tricuspid stenosis. There is severe tricuspid regurgitation. Right ventricular systolic pressure is elevated at 30-40mmHg. Aortic Valve The aortic valve is trileaflet. There is moderate aortic valve thickening. There is moderate aortic sclerosis.;. Mild valvular aortic stenosis. No aortic regurgitation is present. Pulmonic Valve The pulmonic valve is not well visualized. Interpretation Summary The left ventricular size, thickness and function are normal The left ventricular wall motion is normal. There is severe tricuspid regurgitation. Right ventricular systolic pressure is elevated at 30-40mmHg. There is moderate aortic valve thickening. There is moderate aortic sclerosis.; Mild valvular aortic stenosis. The left atrium is moderately dilated. The right atrium is mildly dilated. There is moderate mitral regurgitation. The mitral regurgitant jet is eccentrically directed. MD Daryn Montgomery 08/24/2018 04:05 PM
[2018-08-24] MEDS ORDERED: WARFARIN NA 2.5 MG TABLET (FP) PO SCH ×2 (18:00)
[2018-08-24] MEDS ORDERED: PATIENT'S OWN MEDICATION (NON-FORMULARY) (Levetiracetam [Keppra -] 750 MG) PO SCH (22:00)
[2018-08-24] MEDS ORDERED: levETIRAcetam 250 MG TABLET (FP) PO ONE (23:22)
[2018-08-24] MEDS ORDERED: levETIRAcetam 500 MG TABLET (FP) PO ONE (23:23)
[2018-08-24] MEDS: MONTELUKAST NA 10 MG TABLET PO SCH (23:24)
[2018-08-24] MEDS: ATORVASTATIN CA 20 MG TABLET (FP) PO SCH (23:24)
[2018-08-24] MEDS: BUDESONIDE/FORMETEROL FUMARATE 160/4.5 mcg INHALER IH SCH (23:26)
[2018-08-24] MEDS: FLUTICASONE PROP 0.05% 16 GM NASAL SPRAY NS SCH (23:26)
[2018-08-25] MEDS: LEVOTHYROXINE NA 25 MCG TABLET (FP) PO SCH (06:20)
[2018-08-25 07:49] LABS: BASO % 0.8 % (0-2.0); HEMATOCRIT 40.8 % (32.4-45.2); HEMOGLOBIN 12.8 GM/dL (10.7-15.3); LYMPH % 26.2 % (8-40); MCH 27.8 pg (25.7-33.7); MCHC 31.4 g/dl (32.0-36.0); MEAN CELL VOLUME 88.6 fl (80-96); MEAN PLT VOLUME 8.1 fl (7.5-11.1); MONO % 8.2 % (3.8-10.2); NEUT % 62.8 % (42.8-82.8); PLATELET COUNT 246 K/MM3 (134-434); RBC 4.61 M/mm3 (3.60-5.2); RDW 15.6 % (11.6-15.6); WHITE BLOOD COUNT 7.3 K/mm3 (4.0-10.0)
[2018-08-25 08:00] LABS: INR 2.25 (0.83-1.09); PROTHROMBIN TIME (PATIENT) 26.8 SEC (9.7-13.0)
[2018-08-25 08:52] LABS: ANION GAP 8 MMOL/L (8-16); BLOOD UREA NITROGEN 16 mg/dL (7-18); CALCIUM 8.3 mg/dL (8.5-10.1); CHLORIDE 110 mmol/L (98-107); CO2 26 mmol/L (21-32); CREATININE 0.8 mg/dL (0.55-1.3); GLUCOSE,RANDOM 107 mg/dL (74-106); MAGNESIUM 2.3 mg/dL (1.8-2.4); PHOSPHOROUS 3.7 mg/dL (2.5-4.9); POTASSIUM 4.2 mmol/L (3.5-5.1); SODIUM 144 mmol/L (136-145)
--- NOTE | 2018-08-25 09:20 | PN ---
Progress Note, Physician Chief Complaint: TELE: NSR ECho normal EF, Mild - Current Medication List Current Medications: Active Medications Acetaminophen (Tylenol -) 650 mg PO Q4H PRN PRN Reason: PAIN Albuterol Sulfate (Ventolin Hfa Inhaler -) 2 puff IH TID [facility] Last Admin: 08/24/18 15:36 Dose: Not Given Atorvastatin Calcium (Lipitor -) 20 mg PO HS [facility] Last Admin: 08/24/18 23:24 Dose: 20 mg Budesonide/Formoterol Fumarate (Symbicort 160/4.5mcg -) 2 puff IH BID [facility] Last Admin: 08/24/18 23:26 Dose: Not Given Diazepam (Valium -) 5 mg PO DAILY [facility] Fluticasone Propionate (Flonase -) 2 spray NS BID [facility] Last Admin: 08/24/18 23:26 Dose: Not Given HCTZ/Losartan Potassium (Hyzaar -) 2 tab PO DAILY [facility] Levetiracetam 500 mg/ (Levetiracetam 250 mg) 750 mg PO BID [facility] Last Admin: 08/24/18 23:24 Dose: 750 mg Levothyroxine Sodium (Synthroid -) 25 mcg PO ACBK [facility] Last Admin: 08/25/18 06:20 Dose: 25 mcg Montelukast Sodium (Singulair -) 10 mg PO [facility] Last Admin: 08/24/18 23:24 Dose: 10 mg Nitroglycerin (Nitrostat -) 0.4 mg SL PRN PRN PRN Reason: FOR CHEST PAIN Non-Formulary Medication (Linaclotide [Linzess]) 290 mcg PO DAILY [facility] Pantoprazole Sodium (Protonix -) 40 mg PO DAILY [facility] Warfarin Sodium (Coumadin -) 2.5 mg PO DAILY@1800 [facility] Last Admin: 08/24/18 18:42 Dose: 2.5 mg - Objective Vital Signs: Vital Signs Temperature 97.1 F L 08/25/18 06:00 Pulse Rate 76 08/25/18 06:00 Respiratory Rate 20 08/25/18 06:00 Blood Pressure 117/72 08/25/18 06:00 O2 Sat by Pulse Oximetry (%) 98 08/25/18 01:29 Constitutional: Yes: No Distress, Calm Cardiovascular: Yes: Regular Rate and Rhythm Respiratory: Yes: CTA Bilaterally Gastrointestinal: Yes: Soft Edema: No Neurological: Yes: Alert Labs: CBC, BMP 08/25/18 06:43 08/25/18 06:43 INR, PTT INR 2.25 (0.83-1.09) H 08/25/18 06:43 Laboratory Tests 08/25/18 08/25/18 08/25/18 06:43 06:43 06:43 WBC 7.3 Hgb 12.8 Hct 40.8 Plt Count 246 INR 2.25 H Potassium 4.2 Creatinine 0.8 Magnesium 2.3 - ....Imaging EKG: Image Reviewed Assessment/Plan IMP: Aortic stenosis, unclear severity Possible CAD, angina Hx of DVTs on warfarin REC: Spoke to Son, obtained fax # for medical records in [place] [facility]- will request release of stress test and carotid US. After review stress result, decision re cath. does not appear severe on Echo. Will obtain Carotid US as son reports she has severe stenosis. INR 2-3
[2018-08-25] MEDS ORDERED: levETIRAcetam 250 MG TABLET (FP) PO ONE ×2 (09:33→21:57)
[2018-08-25] MEDS ORDERED: levETIRAcetam 500 MG TABLET (FP) PO ONE ×2 (09:33→21:57)
[2018-08-25] MEDS ORDERED: PT OWN MED DRAWER 7, Y5N ONE (09:34)
[2018-08-25] MEDS: diazePAM 5 MG TABLET PO SCH (09:40)
[2018-08-25] MEDS: PANTOPRAZOLE 40 MG TABLET (FP) PO SCH (09:40)
[2018-08-25] MEDS: LOSARTAN 50MG/HCTZ 12.5MG 1 TAB (FP) PO SCH (09:41)
[2018-08-25] MEDS: BUDESONIDE/FORMETEROL FUMARATE 160/4.5 mcg INHALER IH SCH ×2 (10:00→22:14)
[2018-08-25] MEDS: FLUTICASONE PROP 0.05% 16 GM NASAL SPRAY NS SCH ×2 (10:00→22:14)
[2018-08-25] MEDS ORDERED: PATIENT'S OWN MEDICATION (NON-FORMULARY) (Losartan/Hydrochlorothiazide [Losartan-Hctz 100- PO SCH (10:00)
[2018-08-25] MEDS ORDERED: PATIENT'S OWN MEDICATION (NON-FORMULARY) (Linaclotide [Linzess] 290 MCG) PO SCH (10:00)
[2018-08-25] MEDS: ALBUTEROL SO4 8 GM HFA INHALER IH SCH ×2 (14:00→22:16)
--- NOTE | 2018-08-25 17:07 | PN ---
Physical Exam: SUBJECTIVE: Patient seen and examined at bedside. No new complaints. No overnight events. Denies CP,ROLLINS,SOB, abdominal pain, nausea or vomiting. OBJECTIVE: Vital Signs Period Temp Pulse Resp BP Sys/Sexton Pulse Ox Last 24 Hr 97.1 F-98.6 F 70-87 17-20 104-145/54-78 98-99 GENERAL: AAOx3, NAD ENT: moist mucous membranes. NECK: Trachea midline, full range of motion, supple.No JVD LUNGS: CTAB, no wheezes, no crackles, no accessory muscle use. HEART: RRR, S1, S2 , ALIYAH RSB ABDOMEN: Soft, obese, nontender, nondistended, normoactive bowel sounds, no guarding, no rebound, no hepatosplenomegaly, no masses. EXTREMITIES: 2+ pulses, warm, well-perfused, no edema. NEUROLOGICAL: Cranial nerves II through XII grossly intact. Normal speech, gait not observed. PSYCH: Normal mood, normal affect. SKIN: Warm, dry, normal turgor, no rashes or lesions noted Laboratory Results - last 24 hr 08/24/18 08/25/18 08/25/18 21:45 06:43 06:43 WBC 7.3 RBC 4.61 Hgb 12.8 Hct 40.8 MCV 88.6 MCH 27.8 MCHC 31.4 L RDW 15.6 Plt Count 246 MPV 8.1 Absolute Neuts (auto) 4.6 Neutrophils % 62.8 Lymphocytes % 26.2 Monocytes % 8.2 Eosinophils % 2.0 Basophils % 0.8 Nucleated RBC % 0 PT with INR 26.80 H INR 2.25 H Sodium Potassium Chloride Carbon Dioxide Anion Gap BUN Creatinine Creat Clearance w eGFR Random Glucose Calcium Phosphorus Magnesium Creatine Kinase 90 Troponin I < 0.02 TSH Free T4 08/25/18 08/25/18 06:43 06:43 WBC RBC Hgb Hct MCV MCH MCHC RDW Plt Count MPV Absolute Neuts (auto) Neutrophils % Lymphocytes % Monocytes % Eosinophils % Basophils % Nucleated RBC % PT with INR INR Sodium 144 Potassium 4.2 Chloride 110 H Carbon Dioxide 26 Anion Gap 8 BUN 16 Creatinine 0.8 Creat Clearance w eGFR > 60 Random Glucose 107 H Calcium 8.3 L Phosphorus 3.7 Magnesium 2.3 Creatine Kinase Troponin I TSH 2.45 Free T4 0.95 Active Medications Generic Name Dose Route Start Last Admin Trade Name Freq PRN Reason Stop Dose Admin Acetaminophen 650 mg 08/24/18 10:32 Tylenol - PO Q4H PRN PAIN Albuterol Sulfate 2 puff 08/24/18 14:00 08/24/18 15:36 Ventolin Hfa Inhaler - IH Not Given TID LUIZA Atorvastatin Calcium 20 mg 08/24/18 22:00 08/24/18 23:24 Lipitor - PO 20 mg HS LUIZA Administration Budesonide/Formoterol Fumarate 2 puff 08/24/18 22:00 08/24/18 23:26 Symbicort 160/4.5mcg - IH Not Given BID LUIZA Diazepam 5 mg 08/25/18 10:00 08/25/18 09:40 Valium - PO 5 mg DAILY LUIZA Administration Fluticasone Propionate 2 spray 08/24/18 22:00 08/24/18 23:26 Flonase - NS Not Given BID LUIZA HCTZ/Losartan Potassium 2 tab 08/25/18 10:00 08/25/18 09:41 Hyzaar - PO 2 tab DAILY [facility] Administration Levetiracetam 500 mg/ 750 mg 08/24/18 22:00 08/25/18 09:40 Levetiracetam 250 mg PO 750 mg BID [facility] Administration Levothyroxine Sodium 25 mcg 08/25/18 07:00 08/25/18 06:20 Synthroid - PO 25 mcg ACBK [facility]UI[facility] Administration Montelukast Sodium 10 mg 08/24/18 22:00 08/24/18 23:24 Singulair - PO 10 mg HS [facility] Administration Nitroglycerin 0.4 mg 08/24/18 10:30 Nitrostat - SL PRN PRN FOR CHEST PAIN Non-Formulary Medication 290 mcg 08/25/18 10:00 Linaclotide [Linzess] PO DAILY [facility] Pantoprazole Sodium 40 mg 08/25/18 10:00 08/25/18 09:40 Protonix - PO 40 mg DAILY [facility] Administration Warfarin Sodium 2.5 mg 08/24/18 18:00 08/24/18 18:42 Coumadin - PO 2.5 mg DAILY@1800 [facility] Administration ASSESSMENT/PLAN: 77 yo F with PMHx of HTN, HLD, DM presents with chest pain admitted for r/o ACS. Problem List - Problems (1) Chest pain Assessment/Plan: * Old records from [facility] obtained. * Cardiology consult appreciated * Troponin I have been negative x3 * No events on tele * May need cath as per Cardiology recs. * Continue ASA and Lipitor. (2) Type 2 diabetes mellitus Assessment/Plan: * ADA diet * BGM ACHS * ISS ACHS (3) Hyperlipemia Assessment/Plan: cont. statin (4) Hypertension Assessment/Plan: * HCTZ/Losartan Potassium (Hyzaar -) 2 tab PO DAILY (5) Seizure disorder Assessment/Plan: * continue Keppra Visit type - Emergency Visit Emergency Visit: Yes ED Registration Date: 08/23/18 Care time: The patient presented to the Emergency Department on the above date and was hospitalized for further evaluation of their emergent condition. - New Patient This patient is new to me today: Yes Date on this admission: 08/25/18 - Critical Care Critical Care patient: No
--- NOTE | 2018-08-25 17:24 | PN ---
Teaching Attending Note Name of Resident: Lucio Martinez ATTENDING PHYSICIAN STATEMENT I saw and evaluated the patient. I reviewed the resident's note and discussed the case with the resident. I agree with the resident's findings and plan as documented. SUBJECTIVE: patient complains of unchanged chest pain. Denies sob and n/v. OBJECTIVE: Gen: nad CV: rrr w/o w/r/r Pulm: ctab w/o w/r/r Abd: +bs, s/nt/nd Ext: no c/c/e ASSESSMENT AND PLAN: 1. Chest pain 2. Diastolic dysfunction 3. Hypothyroidism 4. DVT 5. HLD 6. HTN 7. Seizure d/o -case d/w Dr Jackson -hold coumadin today -transfer for cardiac catheterization -otherwise continue current regimen -ECHO reviewed -outpatient stress test and ECHO reviewed Problem List - Problems (1) Chest pain Code(s): R07.9 - CHEST PAIN, UNSPECIFIED Qualifiers: Chest pain type: unspecified Qualified Code(s): R07.9 - Chest pain, unspecified (2) Diastolic dysfunction without heart failure Code(s): I51.9 - HEART DISEASE, UNSPECIFIED (3) Hypothyroidism Code(s): E03.9 - HYPOTHYROIDISM, UNSPECIFIED Qualifiers: Hypothyroidism type: unspecified Qualified Code(s): E03.9 - Hypothyroidism , unspecified (4) DVT (deep venous thrombosis) Code(s): I82.409 - ACUTE EMBOLISM AND THOMBOS UNSP DEEP VN UNSP LOWER EXTREMITY Qualifiers: DVT location: lower extremity Chronicity: chronic (5) Hyperlipemia Code(s): E78.5 - HYPERLIPIDEMIA, UNSPECIFIED Qualifiers: Hyperlipidemia type: pure hypercholesterolemia Qualified Code(s): E78.00 - Pure hypercholesterolemia, unspecified (6) Hypertension Code(s): I10 - ESSENTIAL (PRIMARY) HYPERTENSION Qualifiers: Hypertension type: essential hypertension Qualified Code(s): I10 - Essential (primary) hypertension (7) Seizure disorder Code(s): G40.909 - EPILEPSY, UNSP, NOT INTRACTABLE, WITHOUT STATUS EPILEPTICUS
[2018-08-25] MEDS: MONTELUKAST NA 10 MG TABLET PO SCH (22:11)
[2018-08-25] MEDS: ATORVASTATIN CA 20 MG TABLET (FP) PO SCH (22:11)
[2018-08-26 06:25] LABS: BASO % 0.7 % (0-2.0); LYMPH % 29.6 % (8-40); MCHC 31.7 g/dl (32.0-36.0); MEAN CELL VOLUME 88.4 fl (80-96); MEAN PLT VOLUME 8.2 fl (7.5-11.1); MONO % 7.8 % (3.8-10.2); NEUT % 59.9 % (42.8-82.8); PLATELET COUNT 251 K/MM3 (134-434); RBC 4.64 M/mm3 (3.60-5.2); RDW 15.5 % (11.6-15.6); WHITE BLOOD COUNT 7.9 K/mm3 (4.0-10.0)
[2018-08-26] MEDS: LEVOTHYROXINE NA 25 MCG TABLET (FP) PO SCH (06:25)
[2018-08-26 06:42] LABS: INR 2.06 (0.83-1.09); PROTHROMBIN TIME (PATIENT) 24.5 SEC (9.7-13.0)
[2018-08-26 06:59] LABS: ALBUMIN 2.9 g/dl (3.4-5.0); ALK PHOS 78 U/L (45-117); ANION GAP 5 MMOL/L (8-16); BILIRUBIN,TOTAL 0.5 mg/dL (0.2-1); BLOOD UREA NITROGEN 18 mg/dL (7-18); CALCIUM 8.5 mg/dL (8.5-10.1); CHLORIDE 107 mmol/L (98-107); CO2 30 mmol/L (21-32); CREATININE 0.8 mg/dL (0.55-1.3); GLUCOSE,RANDOM 105 mg/dL (74-106); POTASSIUM 4.8 mmol/L (3.5-5.1); SGOT/AST 20 U/L (15-37); SGPT/ALT 22 U/L (13-61); SODIUM 142 mmol/L (136-145); TOT PROT 5.6 g/dl (6.4-8.2)
--- NOTE | 2018-08-26 08:58 | PN ---
Progress Note, Physician Chief Complaint: Comfortable no distress History of Present Illness: TELE: NSR - Current Medication List Current Medications: Active Medications Acetaminophen (Tylenol -) 650 mg PO Q4H PRN PRN Reason: PAIN Albuterol Sulfate (Ventolin Hfa Inhaler -) 2 puff IH TID [facility] Last Admin: 08/25/18 22:16 Dose: 2 puff Atorvastatin Calcium (Lipitor -) 20 mg PO HS [facility] Last Admin: 08/25/18 22:11 Dose: 20 mg Budesonide/Formoterol Fumarate (Symbicort 160/4.5mcg -) 2 puff IH BID [facility] Last Admin: 08/25/18 22:14 Dose: 2 puff Diazepam (Valium -) 5 mg PO DAILY [facility] Last Admin: 08/25/18 09:40 Dose: 5 mg Fluticasone Propionate (Flonase -) 2 spray NS BID [facility] Last Admin: 08/25/18 22:14 Dose: 2 spray HCTZ/Losartan Potassium (Hyzaar -) 2 tab PO DAILY [facility] Last Admin: 08/25/18 09:41 Dose: 2 tab Levetiracetam 500 mg/ (Levetiracetam 250 mg) 750 mg PO BID [facility] Last Admin: 08/25/18 22:11 Dose: 750 mg Levothyroxine Sodium (Synthroid -) 25 mcg PO ACBK [facility] Last Admin: 08/26/18 06:25 Dose: 25 mcg Montelukast Sodium (Singulair -) 10 mg PO HS [facility] Last Admin: 08/25/18 22:11 Dose: 10 mg Nitroglycerin (Nitrostat -) 0.4 mg SL PRN PRN PRN Reason: FOR CHEST PAIN Non-Formulary Medication (Linaclotide [Linzess]) 290 mcg PO DAILY [facility] Pantoprazole Sodium (Protonix -) 40 mg PO DAILY [facility] Last Admin: 08/25/18 09:40 Dose: 40 mg Warfarin Sodium (Coumadin -) 2.5 mg PO DAILY@1800 [facility] Last Admin: 08/24/18 18:42 Dose: 2.5 mg - Objective Vital Signs: Vital Signs Temperature 98.1 F 08/26/18 05:49 Pulse Rate 74 08/26/18 05:49 Respiratory Rate 20 08/26/18 05:49 Blood Pressure 104/60 08/26/18 05:49 O2 Sat by Pulse Oximetry (%) 100 08/25/18 15:00 Constitutional: Yes: No Distress Cardiovascular: Yes: Regular Rate and Rhythm Respiratory: Yes: CTA Bilaterally Gastrointestinal: Yes: Soft Edema: No Neurological: Yes: Alert Labs: CBC, BMP 08/26/18 05:30 08/26/18 05:30 INR, PTT INR 2.06 (0.83-1.09) H 08/26/18 05:30 Laboratory Tests 08/26/18 08/26/18 08/26/18 05:30 05:30 05:30 WBC 7.9 Hgb 13.0 Plt Count 251 INR 2.06 H Sodium 142 Potassium 4.8 Creatinine 0.8 Assessment/Plan IMP: Aortic stenosis, unclear severity Possible CAD, angina Hx of DVTs on warfarin REC: Stress test from [place] reviewed: done in April--normal perfusion. However, patient continues to have exertional chest pain and I agree that a definitive coronary assessment is prudent. Have agreed with previous recc given in [place] that she have cath, patient and family agreed. Risks/benefits discussed with patient in [place], she has agreed to transfer. Hold coumadin. Start UFH gtts when INR < 2
[2018-08-26] MEDS ORDERED: levETIRAcetam 250 MG TABLET (FP) PO ONE ×2 (09:32→23:09)
[2018-08-26] MEDS ORDERED: levETIRAcetam 500 MG TABLET (FP) PO ONE ×2 (09:32→23:09)
[2018-08-26] MEDS ORDERED: PT OWN MED DRAWER 7, Y5N ONE ×2 (09:34→23:25)
[2018-08-26] MEDS: FLUTICASONE PROP 0.05% 16 GM NASAL SPRAY NS SCH ×2 (11:04→23:20)
[2018-08-26] MEDS: diazePAM 5 MG TABLET PO SCH (11:05)
[2018-08-26] MEDS: PANTOPRAZOLE 40 MG TABLET (FP) PO SCH (11:05)
[2018-08-26] MEDS: LOSARTAN 50MG/HCTZ 12.5MG 1 TAB (FP) PO SCH (11:05)
[2018-08-26] MEDS: BUDESONIDE/FORMETEROL FUMARATE 160/4.5 mcg INHALER IH SCH ×2 (11:06→23:26)
[2018-08-26] MEDS: ALBUTEROL SO4 8 GM HFA INHALER IH SCH ×2 (14:00→23:20)
--- NOTE | 2018-08-26 15:47 | DS ---
Physical Exam: SUBJECTIVE: Patient seen and examined at bedside. No overnight events. No new complaints. Ready for discharge for cardiac cath. Denies CP,ROLLINS, SOB,abdominal pain, nausea or vomiting. OBJECTIVE: Vital Signs Period Temp Pulse Resp BP Sys/S[place]on Pulse Ox Last 24 Hr 97.2 F-98.8 F 68-86 18-20 104-131/43-68 100 PHYSICAL EXAM Gen: nad CV: rrr w/o w/r/r Pulm: ctab w/o w/r/r Abd: +bs, s/nt/nd Ext: no c/c/e LABS Laboratory Results - last 24 hr 08/26/18 08/26/18 08/26/18 05:30 05:30 05:30 WBC 7.9 RBC 4.64 Hgb 13.0 Hct 41.0 MCV 88.4 MCH 28.0 MCHC 31.7 L RDW 15.5 Plt Count 251 MPV 8.2 Absolute Neuts (auto) 4.7 Neutrophils % 59.9 Lymphocytes % 29.6 Monocytes % 7.8 Eosinophils % 2.0 Basophils % 0.7 Nucleated RBC % 0 PT with INR 24.50 H INR 2.06 H Sodium 142 Potassium 4.8 Chloride 107 Carbon Dioxide 30 Anion Gap 5 L BUN 18 Creatinine 0.8 Creat Clearance w eGFR > 60 Random Glucose 105 Calcium 8.5 Total Bilirubin 0.5 AST 20 ALT 22 Alkaline Phosphatase 78 Total Protein 5.6 L Albumin 2.9 L HOSPITAL COURSE: 77 year old female from [place] who comes in with complaints of chest pain for 2 months but worsening these past 3 weeks. She says the pain is sharp, retrosternal, radiates around her L rib and up to her neck. She was admitted to telemetry and cardiology consulted. Troponins negative times 3. Echo showed NL LV size and function, elevated RVSP 30-40. Mod AV thickening, mod Aortic sclerosis, mod LA dilatation, mild RA dilatation, moderate MR. Old records from [facility] obtained. No events seen on telemetry. Based on records obtained, risk stratification and cardiology recommendations patient will be transferred to a facility capable of cardiac catheterization. Coumadin held for procedure. Heparin drip to be initiated upon INR < 2 . She can resume all other medications. Stable for transfer. Date of Admission:08/23/18 Date of Discharge: 11/30/18 Minutes to complete discharge: 47 Discharge Summary Reason For Visit: CHEST PAIN Current Active Problems Chest pain (Acute) Condition: Improved - Instructions Diet, Activity, Other Instructions: You have been seen for chest pain to rule out blockage of the arteries of your heart. You are going to be transferred to a new facility for cardiac cath. Your coumadin is being held at this time. Resume heart heathy diet. Increase activity as tolerated. Resume home meds except coumadin for now. Follow up with cardiology in one week. If you develop worsening of chest pain, fever or chills please return to ER immediately. Referrals: Morales Jackson MD [Primary Care Provider] - 1 Week Disposition: TRANSFER ACUTE CARE/OTHER HOSP - Home Medications Comprehensive Discharge Medication List: Ambulatory Orders Albuterol Sulfate Inhaler - [Ventolin HFA Inhaler -] 1 - 2 inh PO Q4H 04/15/17 Budesonide/Formeterol Fumarate [SYMBICORT 160/4.5mcg -] 2 inh PO BID 04/15/17 Cholecalciferol (Vitamin D3) [Vitamin D3] 10,000 unit PO WEEKLY 04/15/17 Fluticasone Prop 0.05% Nasal [Flonase -] 1 - 2 spray NS BID 04/15/17 Levothyroxine [Synthroid -] 25 mcg PO DAILY 04/15/17 Linaclotide [Linzess] 290 mcg PO DAILY 04/15/17 Losartan/Hydrochlorothiazide [Losartan-Hctz 100-25 mg Tab] 1 each PO DAILY 04/15 Montelukast Na [Singulair -] 10 mg PO HS 04/15/17 Pantoprazole Sodium [Protonix -] 40 mg PO DAILY 04/15/17 Warfarin Sodium [Coumadin] 2.5 mg PO ASDIR 04/15/17 levETIRAcetam [Keppra -] 750 mg PO BID 04/15/17 Salmeterol/Fluticasone [Advair 250Mcg/50Mcg -] 1 inh PO BID 05/02/17 Nitroglycerin 0.4 mg SL PRN 06/13/17 Simvastatin 40 mg PO HS 06/13/17 Albuterol 0.083% Nebulizer Prabha [Ventolin 0.083% Nebulizer Soln -] 1 amp NEB Q6H PRN #0 amp 06/15/17 Diazepam [Valium] 5 mg PO DAILY #10 tablet MDD 10 08/21/17 Nitrofurantoin Monohyd/M-Cryst [Macrobid -] 100 mg PO BID #14 capsule 08/26/17 Albuterol 0.083% Nebulizer Prabha [Ventolin 0.083% Nebulizer Soln -] 1 neb NEB Q4H PRN #20 vial 02/15/18 Prednisone 5 mg PO DAILY #7 tab.ds.pk 02/23/18 Albuterol 0.083% Nebulizer Prabha [Ventolin 0.083% Nebulizer Soln -] 1 neb NEB QID #60 vial 03/10/18 Problem List - Problems (1) Chest pain (2) Type 2 diabetes mellitus (3) Hyperlipemia (4) Hypertension (5) Seizure disorder This patient is new to me today: No Emergency Visit: Yes ED Registration Date: 08/23/18 Care time: The patient presented to the Emergency Department on the above date and was hospitalized for further evaluation of their emergent condition. Critical Care patient: No - Discharge Referral Referred to [facility] Med P.C.: No
[2018-08-26] MEDS ORDERED: metoPROLOL SUCCINATE 25 MG TAB.SR.24H (FP) PO SCH (16:15)
--- NOTE | 2018-08-26 17:33 | PN ---
Teaching Attending Note Name of Resident: Lucio Martinez ATTENDING PHYSICIAN STATEMENT I saw and evaluated the patient. I reviewed the resident's note and discussed the case with the resident. I agree with the resident's findings and plan as documented. SUBJECTIVE: Ms Thompson says chest pain unresolved OBJECTIVE: GEN: nad CV: rrr Pulm: ctab Abd: +bs, s/nt/nd Ext: varicose veins ASSESSMENT AND PLAN: 1. Chest pain 2. Diastolic dysfunction 3. Hypothyroidism 4. DVT 5. HLD 6. HTN 7. Seizure d/o -case d/w Dr Jackson -planned for transfer for cardiac cath, however patient is now declining -resume coumadin -check labs in am -plan for discharge in am Problem List - Problems (1) Chest pain Code(s): R07.9 - CHEST PAIN, UNSPECIFIED Qualifiers: Chest pain type: unspecified Qualified Code(s): R07.9 - Chest pain, unspecified (2) Diastolic dysfunction without heart failure Code(s): I51.9 - HEART DISEASE, UNSPECIFIED (3) Hypothyroidism Code(s): E03.9 - HYPOTHYROIDISM, UNSPECIFIED Qualifiers: Hypothyroidism type: unspecified Qualified Code(s): E03.9 - Hypothyroidism , unspecified (4) DVT (deep venous thrombosis) Code(s): I82.409 - ACUTE EMBOLISM AND THOMBOS UNSP DEEP VN UNSP LOWER EXTREMITY Qualifiers: DVT location: lower extremity Chronicity: chronic (5) Hyperlipemia Code(s): E78.5 - HYPERLIPIDEMIA, UNSPECIFIED Qualifiers: Hyperlipidemia type: pure hypercholesterolemia Qualified Code(s): E78.00 - Pure hypercholesterolemia, unspecified (6) Hypertension Code(s): I10 - ESSENTIAL (PRIMARY) HYPERTENSION Qualifiers: Hypertension type: essential hypertension Qualified Code(s): I10 - Essential (primary) hypertension (7) Seizure disorder Code(s): G40.909 - EPILEPSY, UNSP, NOT INTRACTABLE, WITHOUT STATUS EPILEPTICUS
[2018-08-26] MEDS ORDERED: WARFARIN NA 5 MG TABLET (UD) PO ONE (18:00)
[2018-08-26] MEDS: metoPROLOL SUCCINATE 25 MG TAB.SR.24H (FP) PO SCH (18:39)
[2018-08-26] MEDS: MONTELUKAST NA 10 MG TABLET PO SCH (23:19)
[2018-08-26] MEDS: ATORVASTATIN CA 20 MG TABLET (FP) PO SCH (23:26)
[2018-08-27] MEDS: LEVOTHYROXINE NA 25 MCG TABLET (FP) PO SCH (07:11)
[2018-08-27] MEDS: ALBUTEROL SO4 8 GM HFA INHALER IH SCH (07:11)
[2018-08-27 07:41] LABS: INR 2.29 (0.83-1.09); PROTHROMBIN TIME (PATIENT) 27.2 SEC (9.7-13.0)
[2018-08-27] MEDS ORDERED: levETIRAcetam 250 MG TABLET (FP) PO ONE (09:17)
[2018-08-27] MEDS ORDERED: levETIRAcetam 500 MG TABLET (FP) PO ONE (09:17)
[2018-08-27] MEDS: metoPROLOL SUCCINATE 25 MG TAB.SR.24H (FP) PO SCH (09:29)
[2018-08-27] MEDS: PANTOPRAZOLE 40 MG TABLET (FP) PO SCH (09:29)
[2018-08-27] MEDS: diazePAM 5 MG TABLET PO SCH (09:29)
[2018-08-27] MEDS ORDERED: PT OWN MED DRAWER 7, Y5N ONE (09:33)
[2018-08-27] MEDS: BUDESONIDE/FORMETEROL FUMARATE 160/4.5 mcg INHALER IH SCH (09:35)
[2018-08-27] MEDS: FLUTICASONE PROP 0.05% 16 GM NASAL SPRAY NS SCH (09:35)
[2018-08-27] MEDS: LOSARTAN 50MG/HCTZ 12.5MG 1 TAB (FP) PO SCH (09:35)
--- NOTE | 2018-08-27 09:36 | PN ---
Progress Note, Physician - Current Medication List Current Medications: Active Medications Acetaminophen (Tylenol -) 650 mg PO Q4H PRN PRN Reason: PAIN Albuterol Sulfate (Ventolin Hfa Inhaler -) 2 puff IH TID [facility] Last Admin: 08/27/18 07:11 Dose: 2 puff Atorvastatin Calcium (Lipitor -) 20 mg PO HS [facility] Last Admin: 08/26/18 23:26 Dose: Not Given Budesonide/Formoterol Fumarate (Symbicort 160/4.5mcg -) 2 puff IH BID [facility] Last Admin: 08/26/18 23:26 Dose: Not Given Diazepam (Valium -) 5 mg PO DAILY [facility] Last Admin: 08/26/18 11:05 Dose: 5 mg Fluticasone Propionate (Flonase -) 2 spray NS BID [facility] Last Admin: 08/26/18 23:20 Dose: 2 spray HCTZ/Losartan Potassium (Hyzaar -) 2 tab PO DAILY [facility] Last Admin: 08/26/18 11:05 Dose: 2 tab Levetiracetam 500 mg/ (Levetiracetam 250 mg) 750 mg PO BID [facility] Last Admin: 08/26/18 23:19 Dose: 750 mg Levothyroxine Sodium (Synthroid -) 25 mcg PO ACBK [facility] Last Admin: 08/27/18 07:11 Dose: 25 mcg Metoprolol Succinate (Toprol Xl -) 12.5 mg PO DAILY [facility] Last Admin: 08/26/18 18:39 Dose: Not Given Montelukast Sodium (Singulair -) 10 mg PO HS [facility] Last Admin: 08/26/18 23:19 Dose: 10 mg Nitroglycerin (Nitrostat -) 0.4 mg SL PRN PRN PRN Reason: FOR CHEST PAIN Non-Formulary Medication (Linaclotide [Linzess]) 290 mcg PO DAILY [facility] Pantoprazole Sodium (Protonix -) 40 mg PO DAILY [facility] Last Admin: 08/26/18 11:05 Dose: 40 mg Warfarin Sodium (Coumadin -) 2.5 mg PO DAILY@1800 [facility] - Objective Vital Signs: Vital Signs Temperature 97.7 F 08/27/18 06:00 Pulse Rate 91 H 08/27/18 06:00 Respiratory Rate 20 08/27/18 06:00 Blood Pressure 121/65 08/27/18 06:00 O2 Sat by Pulse Oximetry (%) 98 08/26/18 22:00 Eyes: Yes: WNL, Conjunctiva Clear, EOM Intact HENT: Yes: WNL, Atraumatic, Normocephalic Neck: Yes: WNL, Supple, Trachea Midline Cardiovascular: Yes: WNL, Regular Rate and Rhythm, Murmur, S1, S2 Respiratory: Yes: WNL, Regular, CTA Bilaterally Gastrointestinal: Yes: WNL, Normal Bowel Sounds Genitourinary: Yes: WNL Musculoskeletal: Yes: WNL Extremities: Yes: WNL Edema: No Integumentary: Yes: WNL Neurological: Yes: WNL, Alert, Oriented ...Motor Strength: WNL Psychiatric: Yes: WNL Labs: CBC, BMP 08/26/18 05:30 08/26/18 05:30 INR, PTT INR 2.29 (0.83-1.09) H 08/27/18 05:30 Assessment/Plan IMP: Aortic stenosis, probably mild to moderate - mean gradient 16 mmHg Possible CAD, angina Hx of DVTs on warfarin REC: Stress test from [place] reviewed:by dr. Jackson done in April--normal perfusion. However, patient continues to have exertional chest pain and I agree that a definitive coronary assessment is prudent. Patient refused c. cath - understands risks of [place] and d/w PMD coverage for dr. Jackson
[2018-08-27 12:50] VITALS: BP 109/62; PULSE 83; TEMP 97.4
--- NOTE | 2018-08-27 15:05 | DS ---
Physical Examination Vital Signs: Vital Signs Temperature 36.3 C L 08/27/18 12:44 Pulse Rate 83 08/27/18 12:44 Respiratory Rate 18 08/27/18 12:44 Blood Pressure 109/62 08/27/18 12:44 O2 Sat by Pulse Oximetry (%) 100 08/27/18 10:00 Constitutional: Yes: Well Nourished, No Distress, Calm Cardiovascular: Yes: Regular Rate and Rhythm. No: Gallop, Murmur, Rub Respiratory: Yes: Regular, CTA Bilaterally. No: Rales, Rhonchi, Wheezes Gastrointestinal: Yes: Normal Bowel Sounds, Soft. No: Distention, Tenderness Extremities: Yes: WNL Edema: No Labs: CBC, BMP 08/26/18 05:30 08/26/18 05:30 Discharge Summary Reason For Visit: CHEST PAIN Current Active Problems Chest pain (Acute) Hospital Course: Please refer to previously written discharge summary for full course. Patient was planned for transfer to [facility] for cardiac catheterization. However patient declined transfer as did not want cath at this time. She was observed overnight and was stable. She was seen by cardiology today and cleared for discharge. She is to follow up with Dr Jackson for further evaluation and treatment. Condition: Improved - Instructions Diet, Activity, Other Instructions: You have been seen for chest pain to rule out blockage of the arteries of your heart. You are going to be transferred to a new facility for cardiac cath. Your coumadin is being held at this time. Resume heart heathy diet. Increase activity as tolerated. Resume home meds except coumadin for now. Follow up with cardiology in one week. If you develop worsening of chest pain, fever or chills please return to ER immediately. Referrals: Morales Jackson MD [Primary Care Provider] - 1 Week Disposition: TRANSFER ACUTE CARE/OTHER HOSP - Home Medications Comprehensive Discharge Medication List: Ambulatory Orders Albuterol Sulfate Inhaler - [Ventolin HFA Inhaler -] 1 - 2 inh PO Q4H 04/15/17 Budesonide/Formeterol Fumarate [SYMBICORT 160/4.5mcg -] 2 inh PO BID 04/15/17 Cholecalciferol (Vitamin D3) [Vitamin D3] 10,000 unit PO WEEKLY 04/15/17 Fluticasone Prop 0.05% Nasal [Flonase -] 1 - 2 spray NS BID 04/15/17 Levothyroxine [Synthroid -] 25 mcg PO DAILY 04/15/17 Linaclotide [Linzess] 290 mcg PO DAILY 04/15/17 Losartan/Hydrochlorothiazide [Losartan-Hctz 100-25 mg Tab] 1 each PO DAILY 04/15 Montelukast Na [Singulair -] 10 mg PO HS 04/15/17 Pantoprazole Sodium [Protonix -] 40 mg PO DAILY 04/15/17 Warfarin Sodium [Coumadin] 2.5 mg PO ASDIR 04/15/17 levETIRAcetam [Keppra -] 750 mg PO BID 04/15/17 Salmeterol/Fluticasone [Advair 250Mcg/50Mcg -] 1 inh PO BID 05/02/17 Nitroglycerin 0.4 mg SL PRN 06/13/17 Simvastatin 40 mg PO HS 06/13/17 Albuterol 0.083% Nebulizer Prabha [Ventolin 0.083% Nebulizer Soln -] 1 amp NEB Q6H PRN #0 amp 06/15/17 Diazepam [Valium] 5 mg PO DAILY #10 tablet MDD 10 08/21/17 Nitrofurantoin Monohyd/M-Cryst [Macrobid -] 100 mg PO BID #14 capsule 08/26/17 Albuterol 0.083% Nebulizer Prabha [Ventolin 0.083% Nebulizer Soln -] 1 neb NEB Q4H PRN #20 vial 02/15/18 Prednisone 5 mg PO DAILY #7 tab.ds.pk 02/23/18 Albuterol 0.083% Nebulizer Prabha [Ventolin 0.083% Nebulizer Soln -] 1 neb NEB QID #60 vial 03/10/18
[2018-08-27] MEDS ORDERED: WARFARIN NA 2.5 MG TABLET (FP) PO SCH (18:00)
== END 2018-08-27 15:47 | disposition home or self-care (01) ==
LOC: JER 17:46 → JERBED 21:24 → J4W 08-24 22:07
PROVIDERS: ADMIT Internal Medicine Cardiovascular Disease; ATTEND Internal Medicine Cardiovascular Disease
PROC: 3E0F7GC Introduction of Other Therapeutic Substance into Respiratory Tract, Via Natural or Artificial Opening (ICD-10-PCS; principal; 2018-08-23)
PROC: 3E0F7GC Introduction of Other Therapeutic Substance into Respiratory Tract, Via Natural or Artificial Opening (ICD-10-PCS; 2018-08-23)
DX: R07.9 Chest pain, unspecified (principal); I51.9 Heart disease, unspecified; I10 Essential (primary) hypertension; E11.9 Type 2 diabetes mellitus without complications; E78.5 Hyperlipidemia, unspecified; E03.9 Hypothyroidism, unspecified; G40.909 Epilepsy, unspecified, not intractable, without status epilepticus; J45.909 Unspecified asthma, uncomplicated; M12.9 Arthropathy, unspecified; Z86.718 Personal history of other venous thrombosis and embolism; Z79.01 Long term (current) use of anticoagulants; Z86.73 Personal history of transient ischemic attack (TIA), and cerebral infarction without residual deficits; Z87.19 Personal history of other diseases of the digestive system
CPT/HCPCS: 36415; 71046-TC-FY; 80048; 80053; 81003; 81015; 82550; 83735; 84100; 84439; 84443; 84484; 85025; 85610; 93005; 93010; 93306-TC; 93880-TC; 94640; 99285-25; G0378

== ENCOUNTER 2019-06-11 12:40 | Emergency (ER) | payer OTHER | END 2019-06-11 20:50 | disposition home or self-care (01) | LOC: JER 12:40 ==

== ENCOUNTER 2019-06-27 09:02 | Inpatient (IN) | payer OTHER ==
--- NOTE | 2019-06-27 10:01 | EKG ---
Test Reason : Blood Pressure : / mmHG Vent. Rate : 091 BPM Atrial Rate : 091 BPM P-R Int : 124 ms QRS Dur : 068 ms QT Int : 370 ms P-R-T Axes : 041 002 000 degrees QTc Int : 455 ms SINUS RHYTHM WITH MARKED SINUS ARRHYTHMIA OTHERWISE NORMAL ECG WHEN COMPARED WITH ECG OF 11-JUN-2019 12:50, NONSPECIFIC T WAVE ABNORMALITY NOW EVIDENT IN INFERIOR LEADS Confirmed by MD MICHAEL, MORGAN ([id number]) on 06/27/2019 10:01:00 AM Referred By: Confirmed By:MORGAN RODRIGUEZ MD
--- NOTE | 2019-06-27 10:07 | PDOC ---
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 She had a recent trip from [place] 3 weeks ago (where all of her doctors are). She was also seen here earlier this month for leg and chest pain. She took Lasix 40 mg yesterday from her own prn prescription because she noted more swelling than normal in her legs. Past History - Past Medical History Allergies/Adverse Reactions: Allergies Allergy/AdvReac Type Severity Reaction Status Date / Time Penicillins Allergy Swelling Verified 08/23/18 18:07 Home Medications: Ambulatory Orders Albuterol Sulfate Inhaler - [Ventolin HFA Inhaler -] 1 - 2 inh PO Q4H 04/15/17 Budesonide/Formeterol Fumarate [SYMBICORT 160/4.5mcg -] 2 inh PO BID 04/15/17 Fluticasone Prop 0.05% Nasal [Flonase -] 1 - 2 spray NS BID 04/15/17 Levothyroxine [Synthroid -] 25 mcg PO DAILY 04/15/17 Linaclotide [Linzess] 290 mcg PO DAILY 04/15/17 Losartan/Hydrochlorothiazide [Losartan-Hctz 100-25 mg Tab] 1 each PO DAILY 04/15 Montelukast Na [Singulair -] 10 mg PO HS 04/15/17 Pantoprazole Sodium [Protonix -] 40 mg PO DAILY 04/15/17 levETIRAcetam [Keppra -] 750 mg PO BID 04/15/17 Salmeterol/Fluticasone [Advair 250Mcg/50Mcg -] 1 inh PO BID 05/02/17 Simvastatin 40 mg PO HS 06/13/17 Albuterol 0.083% Nebulizer Prabha [Ventolin 0.083% Nebulizer Soln -] 1 neb NEB Q4H PRN #20 vial 02/15/18 Apixaban [Eliquis] 2.5 mg PO BID 06/11/19 Anemia: No Asthma: Yes Cancer: No Cardiac Disorders: Yes (angina) CVA: Yes (tia) COPD: Yes CHF: No DVT: No Dementia: No Diabetes: No GI Disorders: Yes (ULCER, HERNIA) Disorders: No HTN: Yes Hypercholesterolemia: Yes Liver Disease: No Seizures: Yes Thyroid Disease: Yes - Surgical History Abdominal Surgery: No Appendectomy: No Cardiac Surgery: No Cholecystectomy: No Lung Surgery: No Neurologic Surgery: No Orthopedic Surgery: No - Immunization History Immunization Up to Date: Yes - Psycho Social/Smoking Cessation Hx Smoking Status: No Smoking History: Never smoked Have you smoked in the past 12 months: No Number of Cigarettes Smoked Daily: 0 Information on smoking cessation initiated: No Hx Alcohol Use: No Drug/Substance Use Hx: No Substance Use Type: None Hx Substance Use Treatment: No Review of Systems - Review of Systems Able to Perform ROS?: Yes Comments:: 06/27/19 10:32 GEN: malaise, generalized weakness, no fever, chills, or weight change HEENT: no ear pain, sore throat, vision change, or eye pain CV: chest pain, edema, no palpitations, lightheadedness, or syncope RESP: cough, edema, no wheezing GI: upper abdominal pain, nausea, no vomiting, diarrhea, constipation, or white/ black/bloody stool : no dysuria, hematuria, incontinence, retention, bleeding, or discharge MSK: right leg pain, otherwise no neck/back pain, focal muscle weakness/pain, or joint swelling/pain NEURO: headache, vertigo, seizure, numbness, tingling, or focal weakness PSYCH: no substance use, no behavior change SKIN: no jaundice, no rash ROS otherwise negative except as noted in HPI *Physical Exam - Vital Signs Last Vital Signs Temp Pulse Resp BP Pulse Ox 97.9 F 92 H 19 115/66 97 06/27/19 09:13 06/27/19 09:13 06/27/19 09:13 06/27/19 09:13 06/27/19 09:13 - Physical Exam Comments: 06/27/19 10:52 GENERAL: nontoxic-appearing, elderly, Jordanian speaking and accompanied by daughter, Sarina/Ox4, no distress but appears a bit anxious, answers questions appropriately HEENT: PERRLA, EOMI, moist mucous membranes NECK/BACK: no midline ttp, no spinal stepoff or deformity, no hematoma, full ROM , neck supple CARDIOVASCULAR: PVCs versus irregularly irregular, normal S1S2, 2/5 systolic murmur, strong peripheral pulses, capillary refill <2 seconds, extremities wwp, @+ RLE and 1+ LLE pitting edema LUNGS/RESPIRATORY: no respiratory distress, a bit tachypneic but speaking full sentences, b/l expiratory wheezes and bibasilar crackles GI/ABDOMEN: symmetric actw-oj-mhth, normoactive BS, soft, no ttp, no midline pulsatile masses : no CVA tenderness EXTREMITIES: no muscle atrophy, no acute deformity, +edema, +BLE varicosities SKIN: warm and dry, no pallor, no jaundice, no rash, no bruising, no skin breakdown, no cuts, no lesions NEUROLOGICAL: GCS 15, CN II-XII grossly intact, 5/5 strength proximally and distally, no facial droop Heart Score/ECG Review - History History: Moderately suspicious - Electrocardiogram EKG: Normal - Age Age: >/= 65 - Risk Factors Risk Factors Heart Score: Yes Hx Hypercholesterolemia, Yes Hx Hypertension, Yes Hx Diabetes Based on the list above the patient has:: >/=3 risk factors or Hx atherosclerotic disease - Troponin Troponin: </= normal limit - Score Heart Score - Total: 5 #1 06/27/19 09:23 Sinus rhythm with possible PAC versus sinus arrhythmia, TWF in II, III, aVL, aVF , and V6, no additional ST-T changes ED Treatment Course - LABORATORY CBC & Chemistry Diagram: 06/28/19 05:30 06/28/19 05:30 Medical Decision Making - Medical Decision Making 06/27/19 10:57 78YOF with h/o DVT on Eliquis, ACS, DM, HTN, HLD; p/w worsened chronic R>LLE swelling, right popliteal fossa pain, and worsened cough. Initial Vital Signs Temp Pulse Resp BP Pulse Ox 97.9 F 92 H 19 115/66 97 06/27/19 09:13 06/27/19 09:13 06/27/19 09:13 06/27/19 09:13 06/27/19 09:13 Exam: As noted in Physical Exam section. DDX IBNLT: CHF, pulmonary edema, COPD, asthma, other lung disease, PNA/ bronchitis, anemia, ACS, pericarditis, tamponade, AD, PE, PTX, allergic reaction , malignancy (e.g. causing pericardial effusion or vascular shunt), other infection, pulmonary HTN, etc. W/U ordered: Labs as noted below, EKG CXR Chest CTA TX ordered: Meclizine, Zofran, O2, Pt positioned with head of bed up, EKG: Reviewed; results as noted in ECG Review section. RAD/CHEST X-RAY PORTABLE* Wheezing and crackles. Semierect portable chest x- ray. Comparison study June 11, 2019. Normal contour of the cardiomediastinal silhouette. The lungs are well aerated. There is no evidence of pneumonia, atelectasis, CHF, or pulmonary edema. No evidence of blunting of the costophrenic angles. No pneumothorax, or large pleural effusion is seen. Stable left lung granuloma. Bilateral AC joint, glenohumeral joint arthropathy. Impression. No evidence of active pulmonary disease. US/DUPLEX VASCUL US-2LEGS No case of DVT in the right lower extremity. Neck pain and swelling Bilateral leg color Doppler and duplex venous ultrasound Grayscale, pulsed Doppler and color Doppler interrogation of both lower extremities deep venous system was performed. Compared to prior right leg duplex ultrasound dated 08/17/2018 The common femoral vein, femoral vein, popliteal and posterior tibial vein were identified, bilaterally with a normal phasic wave form, adequate compressibility and adequate response to augmentation. Visualized portion of the greater saphenous and deep femoral vein are patent No Dockery's cyst is identified in the popliteal fossa, bilaterally. Impression: There is no evidence of deep venous thromboses in both lower extremities. CT/CHEST CTA Chest CT angiography Clinical information: chest pain, dyspnea, known DVTs Multiplanar imaging was performed following intravenous administration of nonionic contrast. No discrete pulmonary embolus is noted. There is no evidence of pneumothorax, pneumomediastinum, infiltrate or pleural effusion. Several small calcified bilateral pulmonary nodules are seen consistent with granulomas. Several small calcified mediastinal lymph nodes are noted also consistent with prior granulomatous disease. There is no definite cardiac enlargement. No pericardial effusion is seen. The trachea and central bronchi demonstrate no obvious pathology. There is no aortic aneurysm. No obvious aortic dissection is noted allowing for partially obscuring vascular pulsation artifact. Note is made of a nondisplaced late subacute versus chronic fracture of the right fourth rib along the ventral lateral border (transaxial image 18) without interval change. Impression: No CT evidence of pulmonary embolism or other acute intrathoracic pathology. There has been no definite interval change in comparison to a noncontrast CT study of 06/11/2019. A nondisplaced late subacute versus chronic fracture is again noted of the right fourth rib along the ventral lateral border. Small calcified bilateral pulmonary granulomas. Small calcified mediastinal lymph nodes also consistent with prior granulomatous disease. Laboratory Tests 06/27/19 06/27/19 06/27/19 10:40 10:40 10:40 WBC 7.7 RBC 4.77 Hgb 13.2 Hct 41.3 MCV 86.6 MCH 27.7 MCHC 32.0 RDW 15.4 Plt Count 287 MPV 8.4 Absolute Neuts (auto) 4.5 Neutrophils % 58.6 Lymphocytes % 26.3 Monocytes % 10.9 H Eosinophils % 3.0 Basophils % 1.2 Nucleated RBC % 0 PT with INR 15.70 H INR 1.33 H PTT (Actin FS) 41.2 H Sodium 142 Potassium 4.5 Chloride 103 Carbon Dioxide 33 H Anion Gap 6 L BUN 17.5 Creatinine 0.9 Est GFR (CKD-EPI)AfAm 70.48 Est GFR (CKD-EPI)NonAf 60.81 Random Glucose 115 H Calcium 9.5 Total Bilirubin 0.5 AST 17 ALT 17 Alkaline Phosphatase 89 Creatine Kinase 55 Troponin I < 0.02 B-Natriuretic Peptide 170.5 Total Protein 6.7 Albumin 3.8 Urine Color Urine Appearance Urine pH Ur Specific Jefferson Urine Protein Urine Glucose (UA) Urine Ketones Urine Blood Urine Nitrite Urine Bilirubin Urine Urobilinogen Ur Leukocyte Esterase Urine WBC (Auto) Urine RBC (Auto) Urine Casts (Auto) U Epithel Cells (Auto) Urine Bacteria (Auto) Urine Yeast (Auto) 06/27/19 13:40 WBC RBC Hgb Hct MCV MCH MCHC RDW Plt Count MPV Absolute Neuts (auto) Neutrophils % Lymphocytes % Monocytes % Eosinophils % Basophils % Nucleated RBC % PT with INR INR PTT (Actin FS) Sodium Potassium Chloride Carbon Dioxide Anion Gap BUN Creatinine Est GFR (CKD-EPI)AfAm Est GFR (CKD-EPI)NonAf Random Glucose Calcium Total Bilirubin AST ALT Alkaline Phosphatase Creatine Kinase Troponin I B-Natriuretic Peptide Total Protein Albumin Urine Color Yellow Urine Appearance Clear Urine pH 5.0 Ur Specific Jefferson 1.021 Urine Protein Negative Urine Glucose (UA) Negative Urine Ketones Negative Urine Blood Negative Urine Nitrite Negative Urine Bilirubin Negative Urine Urobilinogen 0.2 Ur Leukocyte Esterase 1+ H Urine WBC (Auto) 3 Urine RBC (Auto) 1 Urine Casts (Auto) 8 U Epithel Cells (Auto) 2.9 Urine Bacteria (Auto) 37.8 Urine Yeast (Auto) None seen Vital Signs Temperature 97.9 F 06/27/19 09:13 Pulse Rate 83 06/27/19 11:15 Respiratory Rate 17 06/27/19 11:15 Blood Pressure 116/67 06/27/19 11:15 O2 Sat by Pulse Oximetry (%) 99 06/27/19 11:15 ADMIT The Pt is unsafe for discharge at this time. They require further hospital observation, workup, and treatment. HEART score is high and patient requires cardiology consultation while inpatient. Microblog sent to [facility] for admission and blank decision to admit order placed per ED protocol. 06/27/19 15:14 I spoke with Yudy Holt, patient accepted to Tele, Dr. Bennett. Second troponin ordered and RN made aware. Blank decision to admit order corrected. Discharge - Discharge Information Problems reviewed: Yes Clinical Impression/Diagnosis: Chest pain, Leg pain, bilateral Condition: Improved - Admission Yes - Follow up/Referral - Patient Discharge Instructions - Post Discharge Activity
[2019-06-27] MEDS ORDERED: MECLIZINE HCL 25 MG TABLET (FP) PO ONE (10:25)
[2019-06-27] MEDS ORDERED: ONDANSETRON 4 MG/2 ML VIAL IVPUSH ONE (10:25)
[2019-06-27] MEDS ORDERED: MECLIZINE HCL 25 MG TABLET (FP) ONE (10:37)
[2019-06-27] MEDS ORDERED: ONDANSETRON 4 MG/2 ML VIAL ONE (10:37)
--- NOTE | 2019-06-27 11:08 | PDOC ---
Attending Attestation - Resident Resident Name: [place] - ED Attending Attestation I have performed the following: I have examined & evaluated the patient, The case was reviewed & discussed with the resident, I agree w/resident's findings & plan - HPI HPI: 06/27/19 11:01 78y/o F multiple medical problems including HTN, DM, CHF, b/l DVT on eliquis with plans for filter in past but pt refused, CAD but never cath'd 2/2 severe peripheral arterial atherosclerosis and pt refused CABG, who at baseline ambulates only several feet before developing dyspnea, presents now after coming to [place] from [place] with subacute to chronic complaints of b/l leg pain and FIERRO/chest pain. Pt compliant with her eliquis, states legs have been more swollen lately. She takes lasix intermittently with some improvement. Her chest pain/fierro appears to be at baseline, ran out of nitro previously prescribed to her by her cardiologists in [place]. - Physicial Exam PE: 06/27/19 11:08 vss, pulse and o2 sat wnl alert, seated in stretcher speaking full sentences, no respiratory distress s1s2, regular with frequent premature beats, 2-3/6 murmur bibasilar crackles with exp wheeze to mid lung field abd benign R>L 2+ edema - Medical Decision Making 06/27/19 11:09 78y/o F with mmp p/w acute on chronic complaints of cp/fierro and b/l edema. Symptoms most comprehensively explained by CHF/volume overload, ? 2/2 noncompliance with lasix. Known DVT on eliquis, r/o worsening of DVT and superimposed PE (had non-con CT chest on prior visit). less consistent with pna. labs, u cxr, ekg cta chest pending Cr lasix reassess Heart Score/ECG Review #1 ECG reviewed & interpreted by me at: 09:23 General ECG Interpretation: Sinus Rhythm (sinus arrhythmia v. APC), Normal Rate (91), Normal Intervals (qtc 455), No acute ischemic changes Compared to previous ECG there are: No significant change (c/w 06/11, nonspecific lateral T wave changes)
[2019-06-27 11:27] LABS: BASO % 1.2 % (0-2.0); HEMATOCRIT 41.3 % (32.4-45.2); HEMOGLOBIN 13.2 GM/dL (10.7-15.3); LYMPH % 26.3 % (8-40); MCH 27.7 pg (25.7-33.7); MEAN CELL VOLUME 86.6 fl (80-96); MEAN PLT VOLUME 8.4 fl (7.5-11.1); MONO % 10.9 % (3.8-10.2); NEUT % 58.6 % (42.8-82.8); PLATELET COUNT 287 K/MM3 (134-434); RBC 4.77 M/mm3 (3.60-5.2); RDW 15.4 % (11.6-15.6); WHITE BLOOD COUNT 7.7 K/mm3 (4.0-10.0)
[2019-06-27 12:04] LABS: ALBUMIN 3.8 g/dl (3.4-5.0); ALK PHOS 89 U/L (45-117); ANION GAP 6 MMOL/L (8-16); BILIRUBIN,TOTAL 0.5 mg/dL (0.2-1); BLOOD UREA NITROGEN 17.5 mg/dL (7-18); CALCIUM 9.5 mg/dL (8.5-10.1); CHLORIDE 103 mmol/L (98-107); CO2 33 mmol/L (21-32); CREATININE 0.9 mg/dL (0.55-1.3); GLUCOSE,RANDOM 115 mg/dL (74-106); N-TERMINAL BNP 170.5 pg/ml (5-450); POTASSIUM 4.5 mmol/L (3.5-5.1); SGOT/AST 17 U/L (15-37); SGPT/ALT 17 U/L (13-61); SODIUM 142 mmol/L (136-145); TOT PROT 6.7 g/dl (6.4-8.2)
[2019-06-27 12:48] LABS: INR 1.33 (0.83-1.09); PROTHROMBIN TIME (PATIENT) 15.7 SEC (9.7-13.0)
[2019-06-27 12:51] LABS: ACTIVATED PTT 41.2 SECONDS (25.2-36.5)
[2019-06-27 14:16] LABS: EPI CELLS 2.9 /HPF (0-5/HPF); HYALINE CASTS 8 /lpf (0-8); URINE APPEARANCE CLEAR; URINE BACTERIA 37.8 /hpf (NEGATIVE); URINE BILIRUBIN NEGATIVE (NEGATIVE); URINE COLOR YELLOW; URINE GLUCOSE (UA) NEGATIVE (NEGATIVE); URINE KETONE NEGATIVE (NEGATIVE); URINE LEUK ESTERASE 1+ (NEGATIVE); URINE NITRITE NEGATIVE (NEGATIVE); URINE PROTEIN NEGATIVE (NEGATIVE); URINE RBC 1 /hpf (0-4); URINE UROBILINOGEN 0.2 mg/dL (0.2-1.0); URINE WBC 3 /hpf (0-5)
[2019-06-27 14:29] LABS: YEAST NONE SEEN (NEGATIVE)
--- NOTE | 2019-06-27 15:54 | HP ---
CHIEF COMPLAINT: chest pain, shortness of breath, joint pain PCP: in [place] HISTORY OF PRESENT ILLNESS: Patient is a 78 y/o female with a history of B/L DVT ( on eliquis) HTN, HLD, TIA , vertigo, asthma, epilepsy, and hypothyroidism who presents for chest pain and shortness of breath. Patient reports the chest pain is chronic. The pain is not associated with exercise, it comes and goes. The pain last about one minute and is describe as sharp. The pain starts substernal and radiates to the right and to the left side. Patient did not want a cath when one was recommended about a year ago. Patient reports she has also been feeling short of breath, this is not new but also has been worsening. Her shortness of breath is when she is lying flat but she is also short of breath when she walks to the bathroom. She takes lasix when she feels that her legs are large. She took one of her lasix pills and her symptoms improved. Patient notes she has also been having lower extremity pain. Patient denies headache, dysuria, or diarrhea. ER course was notable for: (1) negative DVT (2) (3) Recent Travel: [place] ( 3 weeks ago) PAST MEDICAL HISTORY: B/L DVT ( on eliquis) HTN, HLD, TIA, vertigo, asthma, epilepsy, and hypothyroidism PAST SURGICAL HISTORY: hysterectomy, left breast biopsy Social History: Smoking: denies Alcohol: denies Drugs: denies Allergies Penicillins Allergy (Verified 08/23/18 18:07) Swelling HOME MEDICATIONS: Home Medications Medication Instructions Recorded Albuterol Sulfate Inhaler - 1 - 2 inh PO Q4H 04/15/17 [Ventolin HFA Inhaler -] Budesonide/Formeterol Fumarate 2 inh PO BID 04/15/17 [SYMBICORT 160/4.5mcg -] Cholecalciferol (Vitamin D3) 10,000 unit PO WEEKLY 04/15/17 [Vitamin D3] Fluticasone Prop 0.05% Nasal 1 - 2 spray NS BID 04/15/17 [Flonase -] Levothyroxine [Synthroid -] 25 mcg PO DAILY 04/15/17 Linaclotide [Linzess] 290 mcg PO DAILY 04/15/17 Losartan/Hydrochlorothiazide 1 each PO DAILY 04/15/17 [Losartan-Hctz 100-25 mg Tab] Montelukast Na [Singulair -] 10 mg PO HS 04/15/17 Pantoprazole Sodium [Protonix -] 40 mg PO DAILY 04/15/17 levETIRAcetam [Keppra -] 750 mg PO BID 04/15/17 Salmeterol/Fluticasone [Advair 1 inh PO BID 05/02/17 250Mcg/50Mcg -] Simvastatin 40 mg PO HS 06/13/17 Albuterol 0.083% Nebulizer Prabha 1 neb NEB Q4H PRN #20 vial 02/15/18 [Ventolin 0.083% Nebulizer Soln -] Apixaban [Eliquis] 2.5 mg PO BID 06/11/19 REVIEW OF SYSTEMS CONSTITUTIONAL: Absent: fever, chills, diaphoresis, generalized weakness, malaise, loss of appetite, weight change HEENT: Absent: rhinorrhea, nasal congestion, throat pain, throat swelling, difficulty swallowing, mouth swelling, ear pain, eye pain, visual changes CARDIOVASCULAR: chest pain, Absent: syncope, palpitations, irregular heart rate, lightheadedness, peripheral edema RESPIRATORY: shortness of breath Absent: cough, dyspnea with exertion, orthopnea, wheezing, stridor, hemoptysis GASTROINTESTINAL: Absent: abdominal pain, abdominal distension, nausea, vomiting, diarrhea, constipation, melena, hematochezia GENITOURINARY: Absent: dysuria, frequency, urgency, hesitancy, hematuria, flank pain, genital pain MUSCULOSKELETAL: Absent: myalgia, arthralgia, joint swelling, back pain, neck pain SKIN: Absent: rash, itching, pallor HEMATOLOGIC/IMMUNOLOGIC: Absent: easy bleeding, easy bruising, lymphadenopathy, frequent infections ENDOCRINE: Absent: unexplained weight gain, unexplained weight loss, heat intolerance, cold intolerance NEUROLOGIC: Absent: headache, focal weakness or paresthesias, dizziness, unsteady gait, seizure, mental status changes, bladder or bowel incontinence PSYCHIATRIC: Absent: anxiety, depression, suicidal or homicidal ideation, hallucinations. PHYSICAL EXAMINATION Vital Signs - 24 hr 06/27/19 06/27/19 06/27/19 09:13 10:22 11:15 Temperature 97.9 F Pulse Rate 92 H Pulse Rate [ 83 Apical] Respiratory 19 17 Rate Blood Pressure 115/66 Blood Pressure 116/67 [Left Arm] O2 Sat by Pulse 97 99 99 Oximetry (%) GENERAL: Awake, alert, and fully oriented, in no acute distress. EYES: Pupils equal, round and reactive to light, extraocular movements intact, EARS, NOSE, THROAT: Moist mucous membranes. LUNGS: Breath sounds equal, clear to auscultation bilaterally. No wheezes, and no crackles. No accessory muscle use. HEART: Regular rate and rhythm, normal S1 and S2, 3/6 systolic murmur at upper sternal border, no rub or gallop. ABDOMEN: Soft, nontender, not distended, normoactive bowel sounds, no guarding, no rebound, no masses. MUSCULOSKELETAL: Normal range of motion at all joints. tenderness to b/l knee joints LOWER EXTREMITIES: 2+ pulses, warm, well-perfused. No calf tenderness. 1+ pitting edema SKIN: Warm, dry, normal turgor, no rashes or lesions noted, normal capillary refill. CBC, BMP 06/27/19 10:40 06/27/19 10:40 ASSESSMENT/PLAN: Patient is a 78 y/o female with a history of B/L DVT ( on eliquis) HTN, HLD, TIA , vertigo, asthma, epilepsy, and hypothyroidism who is admitted for chest pain and shortness of breath. #chest pain - 2/2 to unstable angina, past visits patient has been advised for a cath but refused - past stress test w/o any ischemic disease, within a year results obtained from [place] via last visit in 08/14 - Echo 08/24/18: moderate Aortic stenosis, tricuspid regurgitation - troponin negative x 2 - ekg without and st elevations or changes - consult Dr Jackson, f/u for any further cardiac tests #shortness of breath - likely 2/2 to dyastolic CHF, vs asthma - patients symptoms improved with lasix, will continue home lasix dose - monitor patient for improvement of symptoms - continue home asthma medications - monitor daily weights and I's and O's - continue montelukast, singulair, albuterol #HTN - continue losartan/hydrochlorothiazide #HLD - continue statin #GERD - continue protonix #hypothyroidism - continue synthroid #epilepsy - continue Keppra - patient has not had any recent seizures, typically brought on by stress #hx DVT and ppx - continue eliquis - lower extremity US negative for DVT's - f/u read of CTA to r/o PE FEN - low sodium low sugar diet ( patient pre diabetic) Dispo: monitor on tele Visit type - Emergency Visit Emergency Visit: Yes ED Registration Date: 06/27/19 Care time: The patient presented to the Emergency Department on the above date and was hospitalized for further evaluation of their emergent condition. - New Patient This patient is new to me today: Yes Date on this admission: 06/30/19 - Critical Care Critical Care patient: No ATTENDING PHYSICIAN STATEMENT I saw and evaluated the patient. I reviewed the resident's note and discussed the case with the resident. I agree with the resident's findings and plan as documented. SUBJECTIVE: OBJECTIVE: ASSESSMENT AND PLAN:
--- NOTE | 2019-06-27 16:00 | CON.CARD ---
Consult Consult Specialty:: Cardiology Referred by:: Dr. 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 States she had fever several days ago with intermittent cough as well. She had extensive cardiac workup in [place] 7 months ago with a diagnosis of aortic stenosis (mild on echo here in 07/2018) and was recommended cardiac cath but patient refused. She continues to an exertional substernal chest pain along with chronic FIERRO. Last admission in July I obtained her nuclear stress report from April 2018 and it was normal. As she was having chest pain and FIERRO, I recommended cath but she refused. 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, Seizure ( last seizure >10yrs ago), Vertigo Cardio/Vascular: Yes: Aortic Stenosis, HTN Pulmonary: Yes: Asthma Gastrointestinal: Yes: Gastritis, Peptic Ulcer Disease Heme/Onc: Yes: Other (Chronic DVTs) Psych: No: Addictions, Anxiety, Bipolar, Depression, Panic, Psychosis, Schizophrenia, Other Musculoskeletal: Yes: Other (arthritis (type not specificed)) ENT: Yes: Sinusitis Endocrine: Yes: Hypothyroidism Additional Medical History: DVTs, HPL - Past Surgical History Past Surgical History: Yes: Breast Biopsy, Hysterectomy - Alcohol/Substance Use Hx Alcohol Use: No History of Substance Use: reports: None - Smoking History Smoking history: Never smoked Have you smoked in the past 12 months: No Aproximately how many cigarettes per day: 0 - Social History ADL: Independent Occupation: retired 20 yrs ago History of Recent Travel: Yes (traveled from [place]) Home Medications - Allergies Allergies/Adverse Reactions: Allergies Allergy/AdvReac Type Severity Reaction Status Date / Time Penicillins Allergy Swelling Verified 08/23/18 18:07 - Home Medications Home Medications: Ambulatory Orders Albuterol Sulfate Inhaler - [Ventolin HFA Inhaler -] 1 - 2 inh PO Q4H 04/15/17 Budesonide/Formeterol Fumarate [SYMBICORT 160/4.5mcg -] 2 inh PO BID 04/15/17 Cholecalciferol (Vitamin D3) [Vitamin D3] 10,000 unit PO WEEKLY 04/15/17 Fluticasone Prop 0.05% Nasal [Flonase -] 1 - 2 spray NS BID 04/15/17 Levothyroxine [Synthroid -] 25 mcg PO DAILY 04/15/17 Linaclotide [Linzess] 290 mcg PO DAILY 04/15/17 Losartan/Hydrochlorothiazide [Losartan-Hctz 100-25 mg Tab] 1 each PO DAILY 04/15 Montelukast Na [Singulair -] 10 mg PO HS 04/15/17 Pantoprazole Sodium [Protonix -] 40 mg PO DAILY 04/15/17 levETIRAcetam [Keppra -] 750 mg PO BID 04/15/17 Salmeterol/Fluticasone [Advair 250Mcg/50Mcg -] 1 inh PO BID 05/02/17 Simvastatin 40 mg PO HS 06/13/17 Albuterol 0.083% Nebulizer Prabha [Ventolin 0.083% Nebulizer Soln -] 1 neb NEB Q4H PRN #20 vial 02/15/18 Apixaban [Eliquis] 2.5 mg PO BID 06/11/19 Family Medical History Family History: Unremarkable Review of Systems - Review of Systems Constitutional: reports: No Symptoms Eyes: reports: No Symptoms HENT: reports: No Symptoms Cardiovascular: reports: Chest Pain, Shortness of Breath Respiratory: reports: Exercise Intolerance, SOB on Exertion Gastrointestinal: denies: No Symptoms, Abdominal Pain, Bloating, Constipation, Diarrhea, Dysphagia, Indigestion, Melena, Nausea, Rectal Bleeding, Vomiting, Vomiting Blood, Other Genitourinary: denies: No Symptoms, Burning, Discharge, Dysuria, Flank Pain, Frequency, Hematuria, Incontinence, Lesions, Menses, Pain, Testicular Mass, Testicular Pain, Testicular Swelling, Urgency, Vaginal Bleeding, Other Breasts: denies: No Symptoms Reported, See HPI, Breast Implants, Discharge from Nipple, Lumps, Pain, Skin Changes, Other Musculoskeletal: reports: Extremity Pain Integumentary: denies: No Symptoms, Blister, Bruising, Change in Color, Eczema, Erythema, Incision, Lesions, Lump, Pallor, Pruritis, Rash, Wound, Other Neurological: denies: No Symptoms, Change in LOC, Change in Speech, Confusion, Dizziness, Headache, Incoordination, Numbness, Parasthesia, Pre-Existing Deficit , Seizure, Syncope, Tremors, Unsteady Gait, Weakness, Other Endocrine: denies: No Symptoms, Excessive Sweating, Flushing, Increased Hunger, Increased Thirst, Intolerance to Cold, Intolerance to Heat, Unexplained Weight Gain, Unexplained Weight Loss, Other Hematology/Lymphatic: denies: No Symptoms, Easily Bruised, Excessive Bleeding, Swollen Glands, Other - Risk Factors Known Risk Factors: Yes: Hypertension Vital Signs: Vital Signs Temperature 97.6 F 06/27/19 15:44 Pulse Rate 55 L 06/27/19 15:44 Respiratory Rate 18 06/27/19 15:44 Blood Pressure 195/45 H 06/27/19 15:44 O2 Sat by Pulse Oximetry (%) 96 06/27/19 15:44 Constitutional: Yes: No Distress, Calm Eyes: Yes: Conjunctiva Clear Neck: Yes: Trachea Midline Respiratory: Yes: CTA Bilaterally Gastrointestinal: Yes: Soft (NT) Cardiovascular: Yes: Regular Rate and Rhythm JVD: No Carotid Bruit: No PMI: Non-Displaced Heart Sounds: Yes: S1, S2 (RRR, soft systolic murmur RSB) Edema: No Peripheral Pulses WNL: No Integumentary: Yes: WNL Neurological: Yes: WNL, Alert, Oriented ...Motor Strength: WNL Psychiatric: Yes: WNL - Other Data Labs, Other Data: CBC, BMP 06/27/19 10:40 06/27/19 10:40 INR, PTT INR 1.33 (0.83-1.09) H 06/27/19 10:40 Troponin, BNP 06/27/19 10:40 Troponin I < 0.02 B-Natriuretic Peptide 170.5 Troponin, BNP 06/27/19 10:40 Troponin I < 0.02 B-Natriuretic Peptide 170.5 Laboratory Tests 06/27/19 06/27/19 06/27/19 10:40 10:40 10:40 WBC 7.7 Hgb 13.2 Plt Count 287 INR 1.33 H Sodium 142 Potassium 4.5 Creatinine 0.9 Creatine Kinase 55 Troponin I < 0.02 Sinus Rhythm (sinus arrhythmia v. APC), Normal Rate (91), Normal Intervals (qtc 455), No acute ischemic changes Compared to previous ECG there are: No significant change (c/w 06/11, nonspecific lateral T wave changes) Echo: Pending Ejection Fraction %: LVEF > or = 40 % Imaging - Results Chest X-ray: Image Reviewed Cat Scan: Pending EKG: Image Reviewed Assessment/Plan IMP: Chronic LE DVTS on AC: etiology unclear Mild Chronic FIERRO and intermittent chest pain (atypical): with normal nuclear stress [place] 04/2018, refused cath B/l LE pain HTN REC: 1. Per ER, ordered for CTA to r/o PE. 2. Aortic stenosis mild on echo 07/2018; can repeat to assess for progression/ r/o pericardial disease, reassess EF. 3. Patient has refused cath both in [place] and here in 07/2018 which was recommended as a definitive evaluation for chronic FIERRO and chest pain. Can discuss with her again, but will likely refuse. Continue medical Rx for now. 4. Cont Eliquis, dose adjusted for age, weight and renal fxn. Old records difficult to obtain as she resides in [place]. 5. Unclear etiology of b/l LE pain; LE duplex here negative for DVT.? Radiculopathy. Further w/u as per PMD.
[2019-06-27] MEDS ORDERED: ALBUTEROL SO4 0.083% IH SOL 2.5 MG/3 ML VIAL.NEB. NEB PRN (16:38)
[2019-06-27] MEDS ORDERED: ALBUTEROL SO4 8 GM HFA INHALER IH SCH (16:45)
--- NOTE | 2019-06-27 16:51 | PN ---
Teaching Attending Note Name of Resident: Yudy Holt ATTENDING PHYSICIAN STATEMENT I saw and evaluated the patient. I reviewed the resident's note and discussed the case with the resident. I agree with the resident's findings and plan as documented. SUBJECTIVE:78 y/o female with a history of B/L DVT ( on eliquis) HTN, HLD, TIA, vertigo, asthma, epilepsy, and hypothyroidism who presents for chest pain and shortness of breath. Patient reports the chest pain is chronic. The pain is not associated with exercise, it comes and goes. The pain last about one minute and is describe as sharp. The pain starts substernal and radiates to the right and to the left side. Patient did not want a cath when one was recommended about a year ago. Patient reports she has also been feeling short of breath, this is not new but also has been worsening. Her shortness of breath is when she is lying flat but she is also short of breath when she walks to the bathroom. She takes lasix when she feels that her legs are large. She took one of her lasix pills and her symptoms improved. Patient notes she has also been having lower extremity pain. Patient denies headache, dysuria, or diarrhea. 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 CP- atypical. was recommended that she had cath Jul 2018 however patient declined. is now willing. has not had any further workup since then. will trend cardiac enzymes Q6H. consult cardio about possible completing cath at this time. check echo. may benefit from anti-anginal therapy 2. SOB-low suspicion for PE. doppler is negative. CTA done. will f/u results. already on eliquis. not hypoxic 3. HTN urgency- unclear if she took her medications today. seems like she is compliant except for lasix. will re-start home medications. titrate as needed to optimize control 4. - was moderate here last time. would repeat echo to see if progressed. 5. hypothyroid- cont LT4 6. asthma- controlled 7. DVT ppx- on eliquis
[2019-06-27] MEDS ORDERED: PATIENT'S OWN MEDICATION (NON-FORMULARY) (Salmeterol/Fluticasone [Advair 250mcg/50mcg -] 1 PO SCH (22:00)
[2019-06-27] MEDS: ATORVASTATIN CA 20 MG TABLET (FP) PO SCH (22:39)
[2019-06-27] MEDS: MONTELUKAST NA 10 MG TABLET PO SCH (22:39)
[2019-06-27] MEDS: APIXABAN 2.5 MG TABLET PO SCH (22:39)
[2019-06-27] MEDS: BUDESONIDE/FORMETEROL FUMARATE 160/4.5 mcg INHALER IH SCH (22:41)
[2019-06-27] MEDS: levETIRAcetam 250 MG TABLET (FP) PO SCH (22:44)
[2019-06-28 00:20] VITALS: BMI 32.1
[2019-06-28] MEDS: LEVOTHYROXINE NA 25 MCG TABLET (FP) PO SCH (06:26)
[2019-06-28 06:33] LABS: HEMATOCRIT 37.9 % (32.4-45.2); HEMOGLOBIN 12.1 GM/dL (10.7-15.3); MCH 27.9 pg (25.7-33.7); MEAN CELL VOLUME 87.1 fl (80-96); MEAN PLT VOLUME 8.5 fl (7.5-11.1); PLATELET COUNT 257 K/MM3 (134-434); RBC 4.35 M/mm3 (3.60-5.2); RDW 15.6 % (11.6-15.6); WHITE BLOOD COUNT 7.1 K/mm3 (4.0-10.0)
[2019-06-28 07:10] LABS: ALBUMIN 3.2 g/dl (3.4-5.0); BILIRUBIN,TOTAL 0.6 mg/dL (0.2-1); BLOOD UREA NITROGEN 15.8 mg/dL (7-18); CALCIUM 9.1 mg/dL (8.5-10.1); CREATININE 0.7 mg/dL (0.55-1.3); MAGNESIUM 2.1 mg/dL (1.8-2.4); PHOSPHOROUS 5.2 mg/dL (2.5-4.9); POTASSIUM 4.1 mmol/L (3.5-5.1); TOT PROT 5.7 g/dl (6.4-8.2)
[2019-06-28] MEDS: APIXABAN 2.5 MG TABLET PO SCH ×2 (09:52→21:21)
[2019-06-28] MEDS: levETIRAcetam 250 MG TABLET (FP) PO SCH ×2 (09:53→21:21)
[2019-06-28] MEDS: PANTOPRAZOLE 40 MG TABLET (FP) PO SCH (09:55)
[2019-06-28] MEDS: BUDESONIDE/FORMETEROL FUMARATE 160/4.5 mcg INHALER IH SCH ×2 (09:55→21:21)
--- NOTE | 2019-06-28 09:59 | PN ---
Progress Note (short form) - Note Progress Note: s: sob is at baseline, chest pain has resolved. no palps, dizziness, wants to go home. Current Medications Albuterol Sulfate (Ventolin 0.083% Nebulizer Soln -) 1 amp NEB Q4H PRN PRN Reason: ASTHMA Apixaban (Eliquis -) 2.5 mg PO BID [facility] Last Admin: 06/28/19 09:52 Dose: 2.5 mg Atorvastatin Calcium (Lipitor -) 20 mg PO HS [facility] Last Admin: 06/27/19 22:39 Dose: 20 mg Budesonide/Formoterol Fumarate (Symbicort 160/4.5mcg -) 2 puff IH BID [facility] Last Admin: 06/28/19 09:55 Dose: 2 puff HCTZ/Losartan Potassium (Hyzaar -) 2 tab PO DAILY [facility] Levetiracetam (Keppra -) 750 mg PO BID [facility] Last Admin: 06/28/19 09:53 Dose: 750 mg Levothyroxine Sodium (Synthroid -) 25 mcg PO AM [facility] Last Admin: 06/28/19 06:26 Dose: 25 mcg Montelukast Sodium (Singulair -) 10 mg PO HS [facility] Last Admin: 06/27/19 22:39 Dose: 10 mg Pantoprazole Sodium (Protonix -) 40 mg PO DAILY [facility] Last Admin: 06/28/19 09:55 Dose: 40 mg Vital Signs Period Temp Pulse Resp BP Sys/Sexton Pulse Ox Last 24 Hr 97.6 F-98.2 F 55-85 17-22 97-195/45-79 96-99 Constitutional: Yes: No Distress, Calm Eyes: Yes: Conjunctiva Clear Neck: Yes: Trachea Midline Respiratory: Yes: CTA Bilaterally Gastrointestinal: Yes: Soft (NT) Cardiovascular: Yes: Regular Rate and Rhythm JVD: No Carotid Bruit: No PMI: Non-Displaced Heart Sounds: Yes: S1, S2 (RRR, soft systolic murmur RSB) Edema: No Integumentary: no jaundice Neurological: Yes:Alert, Oriented not agitated Sinus Rhythm (sinus arrhythmia v. APC), Normal Rate (91), Normal Intervals (qtc 455), No acute ischemic changes Compared to previous ECG there are: No significant change (c/w 06/11, nonspecific lateral T wave changes) Echo: Pending Ejection Fraction %: LVEF > or = 40 % Imaging - Results Chest X-ray: Image Reviewed Cat Scan: Pending EKG: Image Reviewed Assessment/Plan IMP: Chronic LE DVTS on AC: etiology unclear Mild Chronic FIERRO and intermittent chest pain (atypical): with normal nuclear stress [place] 04/2018, refused cath B/l LE pain HTN REC: 1. CTA shows no PE 2. Aortic stenosis mild on echo 07/2018; can repeat to assess for progression/ r/o pericardial disease, reassess EF. if benign findings on echo, no further inpatient cardiac workup 3. Patient has refused cath both in [place] and here in 07/2018 which was recommended as a definitive evaluation for chronic FIERRO and chest pain. Continue medical Rx for now. 4. Cont Eliquis, dose adjusted for age, weight and renal fxn. Old records difficult to obtain as she resides in [place]. 5. Unclear etiology of b/l LE pain; LE duplex here negative for DVT.? Radiculopathy. Further w/u as per PMD.
[2019-06-28] MEDS ORDERED: PT OWN MED DRAWER 7, Y5N ONE (10:00)
[2019-06-28] MEDS: LOSARTAN 50MG/HCTZ 12.5MG 1 TAB (FP) PO SCH (11:15)
--- NOTE | 2019-06-28 11:31 | PN ---
Teaching Attending Note Name of Resident: Jose David Monte ATTENDING PHYSICIAN STATEMENT I saw and evaluated the patient. I reviewed the resident's note and discussed the case with the resident. I agree with the resident's findings and plan as documented. SUBJECTIVE:currently cp has resolved. now c/o of B/L knee pain but states the pain is her typical pain but causing more distress the past few weeks. now states she did have cath in January 2019 however was told she would need CABG which she declined as she does not want to go under general anesthesia. denies CP, SOB , fever, chills, N/V/C/D OBJECTIVE: Last Vital Signs Temp Pulse Resp BP Pulse Ox 98.1 F 84 22 H 97/73 97 06/28/19 08:00 06/28/19 08:00 06/28/19 09:00 06/28/19 08:00 06/28/19 09:00 General NAD CV S1 S2 RRR +murmur no rub or gallop Lungs CTA B/L no wheezing/rales/rhonchi Knees no bone point tenderness no effusions. restricted ROM on active movement of both knees ASSESSMENT AND PLAN: 78yo F with PMH asthma, HTN, hypothyroid, cva, seizures and recurrent B/L DVT on eliquis presented to the ER with CP and SOB and evaluated for PE 1. CP- atypical. had cath earlier this year and was recommended that she had CABG which she declined. cardiac enzymes neg x2. PVC seen on monitor. echo pending. no further cardiac workup at this time. 2. SOB-resolved. CTA neg for PE. 3. HTN urgency- now controlled. cont home meds. 4.B/L knee pain- has known extensive arthritis. unclear how pain has changed. will get xr to ensure no fracture. would benefit from outpatient PT 5. - was moderate here last time. would repeat echo to see if progressed. 6. hypothyroid- cont LT4 7. asthma- controlled 8. DVT ppx- on eliquis 9. d/c home if echo and XR are negative. recommended to follow up with nylon hot wire cutter in [place]
--- NOTE | 2019-06-28 16:21 | DS ---
Physical Exam: SUBJECTIVE: Patient seen and examined OBJECTIVE: Vital Signs Period Temp Pulse Resp BP Sys/Sexton Pulse Ox Last 24 Hr 97.9 F-98.2 F 80-98 17-22 97-124/58-75 96-97 PHYSICAL EXAM GENERAL: The patient is awake, alert, and fully oriented, in no acute distress. HEAD: Normal with no signs of trauma. EYES: PERRL, extraocular movements intact, sclera anicteric, conjunctiva clear. ENT: Ears normal, nares patent, oropharynx clear without exudates, moist mucous membranes. NECK: Trachea midline, full range of motion, supple. LUNGS: Breath sounds equal, clear to auscultation bilaterally, no wheezes, no crackles, no accessory muscle use. HEART: Regular rate and rhythm, S1, S2 without murmur, rub or gallop. ABDOMEN: Soft, nontender, nondistended, normoactive bowel sounds, no guarding, no rebound, no hepatosplenomegaly, no masses. EXTREMITIES: 2+ pulses, warm, well-perfused, no edema. NEUROLOGICAL: Cranial nerves II through XII grossly intact. Normal speech, gait not observed. PSYCH: Normal mood, normal affect. SKIN: Warm, dry, normal turgor, no rashes or lesions noted. LABS Laboratory Results - last 24 hr 06/27/19 06/28/19 06/28/19 15:42 05:30 05:30 WBC 7.1 RBC 4.35 Hgb 12.1 Hct 37.9 MCV 87.1 MCH 27.9 MCHC 32.0 RDW 15.6 Plt Count 257 MPV 8.5 Sodium 142 Potassium 4.1 Chloride 103 Carbon Dioxide 32 Anion Gap 7 L BUN 15.8 Creatinine 0.7 Est GFR (CKD-EPI)AfAm 95.51 Est GFR (CKD-EPI)NonAf 82.41 Random Glucose 108 H Calcium 9.1 Phosphorus 5.2 H Magnesium 2.1 Total Bilirubin 0.6 AST 14 L ALT 14 Alkaline Phosphatase 76 Troponin I < 0.02 Total Protein 5.7 L Albumin 3.2 L HOSPITAL COURSE: Date of Admission:06/27/19 Date of Discharge: 06/28/19 Discharge Summary Problems reviewed: Yes Reason For Visit: SHORTNESS OF BREATH;PAIN IN BOTH LOWER EXTREMITIES Current Active Problems Atypical chest pain (Acute) Leg pain, bilateral (Acute) Condition: Improved - Instructions Diet, Activity, Other Instructions: You were evaluated in the hospital for complaint of chest pain, shortness of breath, and severe knee pain. Imaging did not show any DVT in the legs. No abnormalities seen in the lungs on chest xray. A CTA chest was done which no pulmonary embolism but an old Left rib fracture. A per diem nurse was consulted who recommended an echocardiogram. The echocardiogram showed some valvular abnormalities and possibly a torn chordae (part of the tendon structure). Please follow-up with the following doctors: -PCP in one week; Please discuss further options to manage your knee pain including physical therapy. Additionally you will need to have your BP checked in one week as it was elevated during your stay and possibly repeat labwork as your phosphorous was elevated. -Bin Operator(Dr. Jackson) as you need to have a cardiac catheterization and possibly other interventions for your heart Medications: -Continue all of your home medications as prescribed Other instructions: -normal activity as tolerated -low salt diet Seek immediate medical evaluation or go to the ED if you experience: -severe, unremitting chest pain -unresolving shortness of breath -fever, chills, nausea, vomiting, abdominal pain -frequent falls, loss of consciousness Referrals: Morales Jackson MD [Staff Physician] - Disposition: HOME - Home Medications Comprehensive Discharge Medication List: Ambulatory Orders Albuterol Sulfate Inhaler - [Ventolin HFA Inhaler -] 1 - 2 inh PO Q4H 04/15/17 Budesonide/Formeterol Fumarate [SYMBICORT 160/4.5mcg -] 2 inh PO BID 04/15/17 Fluticasone Prop 0.05% Nasal [Flonase -] 1 - 2 spray NS BID 04/15/17 Levothyroxine [Synthroid -] 25 mcg PO DAILY 04/15/17 Linaclotide [Linzess] 290 mcg PO DAILY 04/15/17 Losartan/Hydrochlorothiazide [Losartan-Hctz 100-25 mg Tab] 1 each PO DAILY 04/15 Montelukast Na [Singulair -] 10 mg PO HS 04/15/17 Pantoprazole Sodium [Protonix -] 40 mg PO DAILY 04/15/17 levETIRAcetam [Keppra -] 750 mg PO BID 04/15/17 Salmeterol/Fluticasone [Advair 250Mcg/50Mcg -] 1 inh PO BID 05/02/17 Simvastatin 40 mg PO HS 06/13/17 Albuterol 0.083% Nebulizer Prabha [Ventolin 0.083% Nebulizer Soln -] 1 neb NEB Q4H PRN #20 vial 02/15/18 Apixaban [Eliquis] 2.5 mg PO BID 06/11/19 ATTENDING PHYSICIAN STATEMENT I saw and evaluated the patient. I reviewed the resident's note and discussed the case with the resident. I agree with the resident's findings and plan as documented. SUBJECTIVE: OBJECTIVE: ASSESSMENT AND PLAN:
[2019-06-28] MEDS: ATORVASTATIN CA 20 MG TABLET (FP) PO SCH (21:21)
[2019-06-28] MEDS: MONTELUKAST NA 10 MG TABLET PO SCH (21:21)
[2019-06-29] MEDS: LEVOTHYROXINE NA 25 MCG TABLET (FP) PO SCH (06:12)
--- NOTE | 2019-06-29 07:11 | ECHO ---
Name: NIKKI DIANE Exam:Adult Echocardiogram Study Date: 06/28/2019 10:35 AM Age: 78 yrs Reason For Study: Chest pain Height: 61 in Weight: 165 lb BSA: 1.7 m2 MMode/2D Measurements & Calculations IVSd: 0.94 cm Ao root diam: 2.8 cm LVIDd: 4.1 cm LA dimension: 3.9 cm LVIDs: 2.2 cm LVPWd: 0.97 cm EDV(Teich): 75.1 ml LVOT diam: 2.0 cm ESV(Teich): 16.2 ml LAV (MOD-bp): 55.8 ml Doppler Measurements & Calculations MV E max yash: 91.8 cm/sec Ao V2 max: 277.4 cm/sec MV A max yash: 123.0 cm/sec Ao max P.9 mmHg MV E/A: 0.75 Ao V2 mean: 191.7 cm/sec MV dec time: 0.19 sec Ao mean P.3 mmHg Ao V2 VTI: 55.1 cm MERCEDEZ(I,D): 1.4 cm2 MERCEDEZ(V,D): 1.4 cm2 LV V1 max P.7 mmHg MR max yash: 542.4 cm/sec LV V1 mean P.7 mmHg MR max P.2 mmHg LV V1 max: 129.2 cm/sec LV V1 mean: 86.7 cm/sec LV V1 VTI: 25.6 cm SV(LVOT): 79.2 ml TR max yash: 303.6 cm/sec TR max P.9 mmHg PA V2 max: 137.1 cm/sec Med Peak E' Yash: 8.3 cm/sec PA max P.5 mmHg Med E/e': 11.1 Lat Peak E' Yash: 10.3 cm/sec Lat E/e': 8.9 PI Vmax: 139.8 cm/sec Procedure A two-dimensional transthoracic echocardiogram with color flow and Doppler was performed. The study w as technically difficult with many images being suboptimal in quality. Left Ventricle The left ventricular size, thickness and function are normal. The left ventricular ejection fraction is normal. E/A reversal consistent with but not diagnostic of poor LV compliance. Regional wall motion abnormalities cannot be excluded due to limited visualization. Right Ventricle The right ventricle is not well visualized. Atria The left atrium is mildly dilated. Right atrial size is normal. Mitral Valve There is mild mitral valve thickening. Highly mobile mass consistent with a torn or redundant chordae seen. There is no mitral valve stenosis. There is mild mitral regurgitation. Tricuspid Valve There is mild tricuspid valve thickening. There is no tricuspid stenosis. There is severe tricuspid regurgitation. Right ventricular systolic pressure is elevated at 40-50mmHg. Aortic Valve The aortic valve is not well visualized. Mild to moderate valvular aortic stenosis. No aortic regurgi tation is present. Pulmonic Valve The pulmonic valve is not well visualized. There is no pulmonic valvular stenosis. Mild pulmonic valv ular regurgitation. Great Vessels The aortic root is normal size. Pericardium/Pleura There is no pericardial effusion. Interpretation Summary The left ventricular size, thickness and function are normal The left ventricular ejection fraction is normal. Right ventricular systolic pressure is elevated at 40-50mmHg. The study was technically difficult with many images being suboptimal in quality. Regional wall motion abnormalities cannot be excluded due to limited visualization. There is severe tricuspid regurgitation. The left atrium is mildly dilated. There is mild mitral regurgitation. The aortic valve is not well visualized. Mild to moderate valvular aortic stenosis. E/A reversal consistent with but not diagnostic of poor LV compliance Highly mobile mass consistent with a torn or redundant chordae seen. MD Daryn Montgomery 06/28/2019 01:41 PM
--- NOTE | 2019-06-29 08:36 | PN ---
Progress Note, Physician Chief Complaint: cp, sob History of Present Illness: ++ cough with a lot of phlegm. still sob. still cp--cp worse, and diffuse back and shoulder pains as well, when coughing no leg swelling no palpit - Current Medication List Current Medications: Active Medications Albuterol Sulfate (Ventolin 0.083% Nebulizer Soln -) 1 amp NEB Q4H PRN PRN Reason: ASTHMA Apixaban (Eliquis -) 2.5 mg PO BID [facility] Last Admin: 06/28/19 21:21 Dose: 2.5 mg Atorvastatin Calcium (Lipitor -) 20 mg PO HS [facility] Last Admin: 06/28/19 21:21 Dose: 20 mg Budesonide/Formoterol Fumarate (Symbicort 160/4.5mcg -) 2 puff IH BID [facility] Last Admin: 06/28/19 21:21 Dose: 2 puff HCTZ/Losartan Potassium (Hyzaar -) 2 tab PO DAILY [facility] Last Admin: 06/28/19 11:15 Dose: 2 tab Levetiracetam (Keppra -) 750 mg PO BID [facility] Last Admin: 06/28/19 21:21 Dose: 750 mg Levothyroxine Sodium (Synthroid -) 25 mcg PO AM [facility] Last Admin: 06/29/19 06:12 Dose: 25 mcg Montelukast Sodium (Singulair -) 10 mg PO HS [facility] Last Admin: 06/28/19 21:21 Dose: 10 mg Pantoprazole Sodium (Protonix -) 40 mg PO DAILY [facility] Last Admin: 06/28/19 09:55 Dose: 40 mg - Objective Vital Signs: Vital Signs Temperature 97.9 F 06/29/19 06:00 Pulse Rate 85 06/29/19 06:00 Respiratory Rate 22 H 06/29/19 06:00 Blood Pressure 119/77 06/29/19 06:00 O2 Sat by Pulse Oximetry (%) 94 L 06/28/19 21:00 Constitutional: Yes: Well Nourished, No Distress, Calm Cardiovascular: Yes: Regular Rate and Rhythm, S1, S2. No: JVD, Gallop, Murmur Respiratory: Yes: Regular, Wheezes. No: Accessory Muscle Use Extremities: No: Cold Edema: No Neurological: Yes: Alert, Oriented Psychiatric: No: Agitated Labs: CBC, BMP 06/28/19 05:30 06/28/19 05:30 INR, PTT INR 1.33 (0.83-1.09) H 06/27/19 10:40 Assessment/Plan Echo 07/15: nl LVEF. RV tds. mild-mod (30/17 mmHg, 1.4 cm2). severe TR. RVSP 40-50. no peric eff IMP: Chronic LE DVTS on AC: etiology unclear acute exacerbation of asthma Chronic FIERRO and intermittent pleuritic/atypical chest pain--likely all sec to asthma Mild-moderate : with B/l LE pain HTN REC: 1. sx's likely sec to asthma. CTA shows no PE, no significant aortic stenosis on repeat echo here. Patient had normal nuclear stress [place] 04/2018 as w/u for these sx's, refused cath as definitive evaluation; no signs ACS here. 2. no further cardiac w/u indicated 3. asthma tx per hospitalist 4. d/c tele 5. cont Eliquis (VTE prevention dose--per hospitalist) 5. Unclear etiology of b/l LE pain; LE duplex here negative for DVT.? Radiculopathy. Further w/u as per PMD.
[2019-06-29] MEDS ORDERED: PT OWN MED DRAWER 7, Y5N ONE (09:09)
[2019-06-29] MEDS: levETIRAcetam 250 MG TABLET (FP) PO SCH ×2 (09:46→22:11)
[2019-06-29] MEDS: APIXABAN 2.5 MG TABLET PO SCH ×2 (09:46→22:11)
[2019-06-29] MEDS: PANTOPRAZOLE 40 MG TABLET (FP) PO SCH (09:46)
[2019-06-29] MEDS: LOSARTAN 50MG/HCTZ 12.5MG 1 TAB (FP) PO SCH (09:46)
[2019-06-29] MEDS: BUDESONIDE/FORMETEROL FUMARATE 160/4.5 mcg INHALER IH SCH ×2 (09:47→22:12)
[2019-06-29] MEDS: ALBUTEROL SO4 2.5/IPRATROPIUM 0.5 INH SOL 3 ML VIAL.NEB. NEB SCH ×3 (11:30→21:08)
--- NOTE | 2019-06-29 11:32 | PN ---
Teaching Attending Note Name of Resident: More Bales ATTENDING PHYSICIAN STATEMENT I saw and evaluated the patient. I reviewed the resident's note and discussed the case with the resident. I agree with the resident's findings and plan as documented. SUBJECTIVE:c/o diffuse body pains from her arthritis. 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 CP- atypical. had cath earlier this year and was recommended that she had CABG which she declined. cardiac enzymes neg x2. PVC seen on monitor. no further cardiac workup at this time. 2. SOB-resolved. CTA neg for PE. 3. HTN urgency- now controlled. cont home meds. 4.B/L knee pain- has known extensive arthritis. unclear how pain has changed. XR showing degenerative changes no effusions. no fractures. will start celebrex trial to see if aids in some relief. encouraged PT 5. - mild- moderate 6. hypothyroid- cont LT4 7. asthma- controlled 8. DVT ppx- on eliquis 9. pt was d/c home yesterday however patient refusing to leave as she wants [employer]. was explained to daughter and again to patient today extensively that we can offer [facility] if she qualifies but she is opposed as she does not think it helps. can arrange for VNS and home PT. encouraged outpatient monitoring and following of her pain
[2019-06-29] MEDS ORDERED: CELECOXIB 200 MG CAPSULE PO ONE (12:15)
--- NOTE | 2019-06-29 17:33 | PN ---
Physical Exam: SUBJECTIVE: Patient seen and examined. Complaining of b/l knee pain. Sleeping comfortably. [place] interpretation with Nurse Rolo DE PAZ OBJECTIVE: Vital Signs Period Temp Pulse Resp BP Sys/Sexton Pulse Ox Last 24 Hr 97.9 F-98.3 F 82-100 18-24 119-136/62-77 94-94 GENERAL: no acute distress HEAD: Normal with no signs of trauma. No temporal wasting EYES: no conjunctival clear. ENT: Ears normal, nares patent, oropharynx clear without exudates, moist mucous membranes. NECK: Trachea midline, full range of motion, supple. LUNGS: Breath sounds equal, mild end expiratory wheezes bilaterally, no accessory muscle use. HEART: Regular rate and rhythm, S1, S2 without murmur, rub or gallop. ABDOMEN: Soft, nontender, nondistended, no guarding, no rebound, no masses. EXTREMITIES: 1+ DP pulses, warm, well-perfused. TTP of medial aspect of Right knee, knee joint w/o erythema/effusion/erythema NEUROLOGICAL: Cranial nerves II through XII grossly intact. Normal speech PSYCH: Normal mood, normal affect. SKIN: Warm, dry, normal turgor, no rashes or lesions noted Active Medications Generic Name Dose Route Start Last Admin Trade Name Freq PRN Reason Stop Dose Admin Albuterol Sulfate 1 amp 06/27/19 16:38 Ventolin 0.083% Nebulizer Soln - NEB Q4H PRN ASTHMA Albuterol/Ipratropium 1 amp 06/29/19 12:00 Duoneb - NEB 06/30/19 08:01 RQID LUIZA Apixaban 2.5 mg 06/27/19 22:00 06/29/19 09:46 Eliquis - PO 2.5 mg BID LUIZA Administration Atorvastatin Calcium 20 mg 06/27/19 22:00 06/28/19 21:21 Lipitor - PO 20 mg HS LUIZA Administration Budesonide/Formoterol Fumarate 2 puff 06/27/19 22:00 06/29/19 09:47 Symbicort 160/4.5mcg - IH 2 puff BID LUIZA Administration HCTZ/Losartan Potassium 2 tab 06/28/19 10:00 06/29/19 09:46 Hyzaar - PO 2 tab DAILY LUIZA Administration Levetiracetam 750 mg 06/27/19 22:00 06/29/19 09:46 Keppra - PO 750 mg BID LUIZA Administration Levothyroxine Sodium 25 mcg 06/28/19 07:00 06/29/19 06:12 Synthroid - PO 25 mcg AM LUIZA Administration Montelukast Sodium 10 mg 06/27/19 22:00 06/28/19 21:21 Singulair - PO 10 mg HS LUIZA Administration Pantoprazole Sodium 40 mg 06/28/19 10:00 06/29/19 09:46 Protonix - PO 40 mg DAILY LUIZA Administration Vital Signs Temp 98.3 F 06/29/19 14:00 Pulse 82 06/29/19 14:00 Resp 20 06/29/19 14:00 BP 122/69 06/29/19 14:00 Pulse Ox 94 L 06/29/19 09:00 Intake & Output 06/28/19 06/29/19 06/29/19 23:59 11:59 23:59 Intake Total 120 140 Balance 120 140 Weight 77.4 kg Intake: IV 20 Saline Lock 20 Oral 120 120 Other: Voiding Method Toilet # Unmeasured Voids Void 2 1 3 Bowel Movement No No Yes ASSESSMENT/PLAN: 78yo F with PMH asthma, HTN, hypothyroid, cva, seizures and 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 #atypical angina >troponins neg x2 >EKG: no ST elevations >echo: LVEF normal, cannot exclude wall motion abnorm, RVSP 40-50mmHg, severe TR , mild MR, mod , mobile mass consistent w/ torn/redundant chordae -cw tele -hx of ?cath earlier this year: possible CABG recommended -- patient deferred #SOB-resolved >CTA neg for PE #chronic HTN -- resolved -cw home meds #chronic B/L knee pain 2/2 OA >XR knees showing degenerative changes no effusions. no fractures. -celebrex for pain -encouraged PT #hypothyroidism -home levothyroxine #chronic ashtma -- mild wheezing today -home meds -scheduled duonebs #DVT ppx -eliquis #Dispo -daughter expressing concern that she cannot take care of her mother. Says patient has lost the ability to ambulate. Requesting home support -pt is appealing discharge Visit type - Emergency Visit Emergency Visit: No - New Patient This patient is new to me today: No - Critical Care Critical Care patient: No ATTENDING PHYSICIAN STATEMENT I saw and evaluated the patient. I reviewed the resident's note and discussed the case with the resident. I agree with the resident's findings and plan as documented. SUBJECTIVE: OBJECTIVE: ASSESSMENT AND PLAN:
[2019-06-29] MEDS: MONTELUKAST NA 10 MG TABLET PO SCH (22:11)
[2019-06-29] MEDS: ATORVASTATIN CA 20 MG TABLET (FP) PO SCH (22:11)
[2019-06-30] MEDS: LEVOTHYROXINE NA 25 MCG TABLET (FP) PO SCH (06:14)
[2019-06-30] MEDS: ALBUTEROL SO4 2.5/IPRATROPIUM 0.5 INH SOL 3 ML VIAL.NEB. NEB SCH (07:45)
--- NOTE | 2019-06-30 09:54 | PN ---
Progress Note, Physician Chief Complaint: No CP, SOB, dizziness - Current Medication List Current Medications: Active Medications Albuterol Sulfate (Ventolin 0.083% Nebulizer Soln -) 1 amp NEB Q4H PRN PRN Reason: ASTHMA Apixaban (Eliquis -) 2.5 mg PO BID [facility] Last Admin: 06/29/19 22:11 Dose: 2.5 mg Atorvastatin Calcium (Lipitor -) 20 mg PO HS [facility] Last Admin: 06/29/19 22:11 Dose: 20 mg Budesonide/Formoterol Fumarate (Symbicort 160/4.5mcg -) 2 puff IH BID [facility] Last Admin: 06/29/19 22:12 Dose: 2 puff HCTZ/Losartan Potassium (Hyzaar -) 2 tab PO DAILY [facility] Last Admin: 06/29/19 09:46 Dose: 2 tab Levetiracetam (Keppra -) 750 mg PO BID [facility] Last Admin: 06/29/19 22:11 Dose: 750 mg Levothyroxine Sodium (Synthroid -) 25 mcg PO AM [facility] Last Admin: 06/30/19 06:14 Dose: 25 mcg Montelukast Sodium (Singulair -) 10 mg PO HS [facility] Last Admin: 06/29/19 22:11 Dose: 10 mg Pantoprazole Sodium (Protonix -) 40 mg PO DAILY [facility] Last Admin: 06/29/19 09:46 Dose: 40 mg - Objective Vital Signs: Vital Signs Temperature 97.3 F L 06/29/19 21:00 Pulse Rate 84 06/30/19 08:53 Respiratory Rate 22 H 06/30/19 08:53 Blood Pressure 100/77 06/30/19 08:53 O2 Sat by Pulse Oximetry (%) 94 L 06/29/19 09:00 Constitutional: Yes: No Distress, Calm Eyes: Yes: Conjunctiva Clear Cardiovascular: Yes: Regular Rate and Rhythm Respiratory: Yes: CTA Bilaterally Gastrointestinal: Yes: Soft (NT) Edema: No Peripheral Pulses WNL: Yes Neurological: Yes: Alert, Oriented Labs: CBC, BMP 06/28/19 05:30 06/28/19 05:30 INR, PTT INR 1.33 (0.83-1.09) H 06/27/19 10:40 Assessment/Plan Assessment/Plan Echo 07/15: nl LVEF. RV tds. mild-mod (30/17 mmHg, 1.4 cm2). severe TR. RVSP 40-50. no peric eff IMP: Chronic LE DVTS on AC: etiology unclear acute exacerbation of asthma Chronic FIERRO and intermittent pleuritic/atypical chest pain--likely all sec to asthma Mild-moderate : with B/l LE pain HTN REC: 1. sx's likely sec to asthma. CTA shows no PE, no significant aortic stenosis on repeat echo here. Patient had normal nuclear stress [place] 04/2018 as w/u for these sx's, refused cath as definitive evaluation; no signs ACS here. 2. no further cardiac w/u indicated 3. asthma tx per hospitalist 4. TELE d/c'd 5. cont Eliquis (VTE prevention dose--per hospitalist) 5. Unclear etiology of b/l LE pain; LE duplex here negative for DVT.? Radiculopathy. Further w/u as per PMD.
[2019-06-30] MEDS: PANTOPRAZOLE 40 MG TABLET (FP) PO SCH (10:01)
[2019-06-30] MEDS: APIXABAN 2.5 MG TABLET PO SCH (10:01)
[2019-06-30] MEDS: levETIRAcetam 250 MG TABLET (FP) PO SCH (10:01)
[2019-06-30] MEDS: BUDESONIDE/FORMETEROL FUMARATE 160/4.5 mcg INHALER IH SCH (10:02)
[2019-06-30] MEDS ORDERED: PT OWN MED DRAWER 7, Y5N ONE (10:03)
[2019-06-30] MEDS: LOSARTAN 50MG/HCTZ 12.5MG 1 TAB (FP) PO SCH (10:04)
[2019-06-30] MEDS ORDERED: CELECOXIB 200 MG CAPSULE PO ONE (10:37)
[2019-06-30] MEDS ORDERED: ACETAMINOPHEN 325 MG TABLET (FP) PO PRN (10:39)
--- NOTE | 2019-06-30 10:51 | PN ---
Teaching Attending Note Name of Resident: Jose David Monte ATTENDING PHYSICIAN STATEMENT I saw and evaluated the patient. I reviewed the resident's note and discussed the case with the resident. I agree with the resident's findings and plan as documented. SUBJECTIVE:no new complaints. seen ambulating to the bathroom without difficulty or distress. 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 CP- atypical. had cath earlier this year and was recommended that she had CABG which she declined. cardiac enzymes neg x2. PVC seen on monitor. no further cardiac workup at this time. 2. SOB-resolved. CTA neg for PE. 3. HTN urgency- now controlled. cont home meds. 4.B/L knee pain- has known extensive arthritis. unclear how pain has changed. XR showing degenerative changes no effusions. no fractures. on celebrex trial to see if aids in some relief. encouraged PT. can follow up with ortho as outpatient if desires. 5. - mild- moderate 6. hypothyroid- cont LT4 7. asthma- controlled 8. DVT ppx- on eliquis 9. d/c on 06/28. [facility]
[2019-06-30 12:28] VITALS: BP 92/82; PULSE 95
[2019-06-30 16:48] VITALS: TEMP 98.1
--- NOTE | 2019-06-30 18:33 | PN ---
Physical Exam: SUBJECTIVE: Patient seen and examined. Still endorsing pain to Right knee and Left knee, worse on Left OBJECTIVE: Vital Signs Period Temp Pulse Resp BP Sys/Sexton Pulse Ox Last 24 Hr 97.3 F-98.1 F 75-95 18-24 92-109/50-82 GENERAL: no acute distress HEAD: Normal with no signs of trauma. No temporal wasting EYES: no conjunctival clear. ENT: Ears normal, nares patent, oropharynx clear without exudates, moist mucous membranes. NECK: Trachea midline, full range of motion, supple. LUNGS: Breath sounds equal, mild end expiratory wheezes bilaterally, no accessory muscle use. HEART: Regular rate and rhythm, S1, S2 without murmur, rub or gallop. ABDOMEN: Soft, nontender, nondistended, no guarding, no rebound, no masses. EXTREMITIES: 1+ DP pulses, warm, well-perfused. TTP of medial aspect of Right knee, knee joint w/o erythema/effusion/erythema NEUROLOGICAL: Cranial nerves II through XII grossly intact. Normal speech PSYCH: Normal mood, normal affect. SKIN: Warm, dry, normal turgor, no rashes or lesions noted Active Medications Generic Name Dose Route Start Last Admin Trade Name Freq PRN Reason Stop Dose Admin Acetaminophen 650 mg 06/30/19 10:39 06/30/19 12:22 Tylenol - PO 650 mg Q6H PRN Administration PAIN Albuterol Sulfate 1 amp 06/27/19 16:38 Ventolin 0.083% Nebulizer Soln - NEB Q4H PRN ASTHMA Apixaban 2.5 mg 06/27/19 22:00 06/30/19 10:01 Eliquis - PO 2.5 mg BID LUIZA Administration Atorvastatin Calcium 20 mg 06/27/19 22:00 06/29/19 22:11 Lipitor - PO 20 mg HS LUIZA Administration Budesonide/Formoterol Fumarate 2 puff 06/27/19 22:00 06/30/19 10:02 Symbicort 160/4.5mcg - IH 2 puff BID LUIZA Administration HCTZ/Losartan Potassium 2 tab 06/28/19 10:00 06/30/19 10:04 Hyzaar - PO 2 tab DAILY LUIZA Administration Levetiracetam 750 mg 06/27/19 22:00 06/30/19 10:01 Keppra - PO 750 mg BID LUIZA Administration Levothyroxine Sodium 25 mcg 06/28/19 07:00 06/30/19 06:14 Synthroid - PO 25 mcg AM LUIZA Administration Montelukast Sodium 10 mg 06/27/19 22:00 06/29/19 22:11 Singulair - PO 10 mg HS LUIZA Administration Pantoprazole Sodium 40 mg 06/28/19 10:00 06/30/19 10:01 Protonix - PO 40 mg DAILY LUIZA Administration ASSESSMENT/PLAN: 78yo F with PMH asthma, HTN, hypothyroid, cva, seizures and 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 Cardiac issues were deemed not acute. B/L knee pain 2/2 chronic OA. #atypical angina >troponins neg x2 >EKG: no ST elevations >echo: LVEF normal, cannot exclude wall motion abnorm, RVSP 40-50mmHg, severe TR , mild MR, mod , mobile mass consistent w/ torn/redundant chordae -cw tele -hx of ?cath earlier this year: possible CABG recommended -- patient deferred #SOB-resolved >CTA neg for PE #chronic HTN -- resolved -cw home meds #chronic B/L knee pain 2/2 OA >XR knees showing degenerative changes no effusions. no fractures. -celebrex for pain -encouraged PT -on 06/30/19, patient demonstrating ability to ambulate independently to toilet #hypothyroidism -home levothyroxine #chronic ashtma -- mild wheezing today -home meds -scheduled duonebs #DVT ppx -eliquis #Dispo -daughter expressing concern that she cannot take care of her mother. Says patient has lost the ability to ambulate. Requesting home support -pt is appealing discharge -- denied Visit type - Emergency Visit Emergency Visit: No - New Patient This patient is new to me today: No - Critical Care Critical Care patient: No ATTENDING PHYSICIAN STATEMENT I saw and evaluated the patient. I reviewed the resident's note and discussed the case with the resident. I agree with the resident's findings and plan as documented. SUBJECTIVE: OBJECTIVE: ASSESSMENT AND PLAN:
== END 2019-06-30 18:50 | disposition home or self-care (01) | DRG 313 ==
LOC: JER 09:02 → JERBED 14:53 → J2W 19:10
PROVIDERS: ADMIT Internal Medicine; ATTEND Internal Medicine
DX: R07.89 Other chest pain (principal); I82.5Z3 Chronic embolism and thrombosis of unspecified deep veins of distal lower extremity, bilateral; J45.901 Unspecified asthma with (acute) exacerbation; I20.8 Other forms of angina pectoris; I10 Essential (primary) hypertension; E78.5 Hyperlipidemia, unspecified; E11.9 Type 2 diabetes mellitus without complications; G40.909 Epilepsy, unspecified, not intractable, without status epilepticus; E03.9 Hypothyroidism, unspecified; R06.02 Shortness of breath; R42 Dizziness and giddiness; K21.9 Gastro-esophageal reflux disease without esophagitis; I35.0 Nonrheumatic aortic (valve) stenosis; J44.9 Chronic obstructive pulmonary disease, unspecified; I16.0 Hypertensive urgency; K29.70 Gastritis, unspecified, without bleeding; M25.562 Pain in left knee; M17.0 Bilateral primary osteoarthritis of knee; M25.561 Pain in right knee; Z86.73 Personal history of transient ischemic attack (TIA), and cerebral infarction without residual deficits; Z88.0 Allergy status to penicillin; Z87.11 Personal history of peptic ulcer disease
CPT/HCPCS: 36415; 71045-TC-FY; 71275-TC; 73562-TC-LT-FY; 73562-TC-RT-FY; 80053; 81003; 82550; 83735; 83880; 84100; 84484; 85025; 85027; 85610; 85730; 87086; 87186; 93005; 93010; 93306-TC; 93970-TC; 94640; 97116-GP; 97161-GP; 99284-25

== ENCOUNTER 2019-08-11 16:22 | Inpatient (IN) | payer OTHER ==
--- NOTE | 2019-08-11 16:46 | PDOC ---
Rapid Medical Evaluation Chief Complaint: Injury Time Seen by Provider: 08/11/19 16:40 Medical Evaluation: Allergies Allergy/AdvReac Type Severity Reaction Status Date / Time Penicillins Allergy Swelling Verified 08/11/19 16:40 08/11/19 16:41 78 year old female with history of vertigo reports fall to the left side 9 days. reports neck pain left sided shoulder pain, weakness to legs since the fall. patient reports numbness and tingling to the legs. patient also fell while walking to the ER patient fell hit right hip prior to triage patient also reports rectal bleeding x 3 days patient is on eloquis for DVTs PE: patient alert ox3 A: elderly fall ; shoulder pain P: imaging not ordered. patient needs a full exam. 08/11/19 16:46 Discharge Disposition - Diagnosis Fall in elderly patient, Weakness of both legs Shoulder pain, left Qualifiers: Chronicity: acute Qualified Code(s): M25.512 - Pain in left shoulder - Referrals - Patient Instructions - Post Discharge Activity
--- NOTE | 2019-08-11 17:14 | PDOC ---
History of Present Illness - General Chief Complaint: Injury Stated Complaint: FALL Time Seen by Provider: 08/11/19 16:40 History Source: Patient Past History - Past Medical History Allergies/Adverse Reactions: Allergies Allergy/AdvReac Type Severity Reaction Status Date / Time Penicillins Allergy Swelling Verified 08/11/19 16:40 Home Medications: Ambulatory Orders Albuterol Sulfate Inhaler - [Ventolin HFA Inhaler -] 1 - 2 inh PO Q4H 04/15/17 Fluticasone Prop 0.05% Nasal [Flonase -] 1 - 2 spray NS BID 04/15/17 Levothyroxine [Synthroid -] 25 mcg PO DAILY 04/15/17 Losartan/Hydrochlorothiazide [Losartan-Hctz 100-25 mg Tab] 1 each PO DAILY 04/15 Montelukast Na [Singulair -] 10 mg PO HS 04/15/17 Pantoprazole Sodium [Protonix -] 40 mg PO DAILY 04/15/17 Salmeterol/Fluticasone [Advair 250Mcg/50Mcg -] 1 inh PO BID 05/02/17 Simvastatin 40 mg PO HS 06/13/17 Albuterol 0.083% Nebulizer Prabha [Ventolin 0.083% Nebulizer Soln -] 1 neb NEB Q4H PRN #20 vial 02/15/18 Apixaban [Eliquis] 5 mg PO BID 06/11/19 Celecoxib [Celebrex] 200 mg PO DAILY #7 capsule 06/29/19 Anemia: No Asthma: Yes Cancer: No Cardiac Disorders: Yes (AORTIC STENOSIS) CVA: Yes (tia) COPD: No CHF: No DVT: No Dementia: No Diabetes: Yes GI Disorders: Yes (ULCER, HERNIA) Disorders: No HTN: Yes Hypercholesterolemia: Yes Liver Disease: No Seizures: Yes Thyroid Disease: Yes Other medical history: DVT - ON ELQUIS - Surgical History Abdominal Surgery: No Appendectomy: No Cardiac Surgery: No Cholecystectomy: No Lung Surgery: No Neurologic Surgery: No Orthopedic Surgery: No - Immunization History Immunization Up to Date: Yes - Psycho Social/Smoking Cessation Hx Smoking Status: No Smoking History: Never smoked Have you smoked in the past 12 months: No Number of Cigarettes Smoked Daily: 0 Hx Alcohol Use: No Drug/Substance Use Hx: No Substance Use Type: None Hx Substance Use Treatment: No *Physical Exam - Vital Signs Last Vital Signs Temp Pulse Resp BP Pulse Ox 97.8 F 70 16 140/65 100 08/11/19 16:40 08/11/19 16:40 08/11/19 16:40 08/11/19 16:40 08/11/19 16:40 ED Treatment Course - LABORATORY CBC & Chemistry Diagram: 08/11/19 18:06 08/11/19 18:06 Medical Decision Making - Medical Decision Making 08/11/19 17:52 Ms. Jay Cooper is a 78 y/o woman with hx prior DVTs, DM, prior TIAs presenting after a fall nine days ago with ongoing L shoulder pain with limited ROM, generalized weakness, and three days of lower GI bleeding with each bowel movement. Of note, she had a fall from her wheelchair while in the waiting room with ongoing bilateral hip pain. Differential includes anemia from hemorrhoids vs diverticulosis, ACS, infectious etiology in urine or lungs. Plan: CBC CMP EKG CXR XRay shoulder XRay hip/pelvis Cardiac profile UA Urine culture Dispo: Admit 08/11/19 21:06 Stool occult blood sent On rectal exam - no gross blood noted, no lesions or external hemorrhoids noted 08/11/19 22:[address], CXR negative for acute process XR shoulder notable for increased joint space, likely soft tissue swelling. No fracture noted. XR hip notable for L femoral head shortening. Plan for for CT lower extremity UA negative, culture pending Hg - 12.3 Discharge - Discharge Information Clinical Impression/Diagnosis: Fall in elderly patient, Weakness of both legs Shoulder pain, left Qualifiers: Chronicity: acute Qualified Code(s): M25.512 - Pain in left shoulder - Follow up/Referral - Patient Discharge Instructions - Post Discharge Activity
[2019-08-11 18:25] LABS: BASO % 0.8 % (0-2.0); EOS % 4.9 % (0-4.5); HEMATOCRIT 38.7 % (32.4-45.2); HEMOGLOBIN 12.3 GM/dL (10.7-15.3); LYMPH % 26.5 % (8-40); MCH 27.3 pg (25.7-33.7); MCHC 31.8 g/dl (32.0-36.0); MEAN CELL VOLUME 85.9 fl (80-96); MONO % 9.1 % (3.8-10.2); NEUT % 58.7 % (42.8-82.8); PLATELET COUNT 238 K/MM3 (134-434); RDW 15.9 % (11.6-15.6); WHITE BLOOD COUNT 6.6 K/mm3 (4.0-10.0)
[2019-08-11 18:39] LABS: INR 1.13 (0.83-1.09); PROTHROMBIN TIME (PATIENT) 13.4 SEC (9.7-13.0)
[2019-08-11 18:57] LABS: ALBUMIN 3.1 g/dl (3.4-5.0); BILIRUBIN,TOTAL 0.3 mg/dL (0.2-1); BLOOD UREA NITROGEN 23.8 mg/dL (7-18); CREATININE 0.8 mg/dL (0.55-1.3); POTASSIUM 4.6 mmol/L (3.5-5.1); TOT PROT 5.5 g/dl (6.4-8.2)
[2019-08-11 19:05] LABS: URINE APPEARANCE CLEAR; URINE BILIRUBIN NEGATIVE (NEGATIVE); URINE COLOR YELLOW; URINE GLUCOSE (UA) NEGATIVE (NEGATIVE); URINE KETONE NEGATIVE (NEGATIVE); URINE LEUK ESTERASE NEGATIVE (NEGATIVE); URINE NITRITE NEGATIVE (NEGATIVE); URINE PROTEIN NEGATIVE (NEGATIVE); URINE UROBILINOGEN 0.2 mg/dL (0.2-1.0)
--- NOTE | 2019-08-11 20:54 | PDOC ---
Documentation entered by Addison Weinstein SCRIBE, acting as scribe for Mary Casey MD. Mary Casey MD: This documentation has been prepared by the Js stallings Daniel, SCRIBE, under my direction and personally reviewed by me in its entirety. I confirm that the documentation accurately reflects all work, treatment, procedures, and medical decision making performed by me. Attending Attestation - Resident Resident Name: Reji Quach - ED Attending Attestation I have performed the following: I have examined & evaluated the patient, The case was reviewed & discussed with the resident, I agree w/resident's findings & plan, Exceptions are as noted - HPI HPI: 08/11/19 18:33 The patient is a 78 year old female with a past medical history of prior DVTs ( eliquis), diabetes, and TIA here today for evaluation of left shoulder pain and rectal bleeding. The patient reports that she fell at home 9 days and has had left shoulder pain since. She denies seeking medical attention at that time. She also reports that she has had 3 days of rectal bleeding (bright red blood) which occurs after bowel movement she has had. She also notes chills, generalized weakness, and increased urination. Patient denies headache, lightheadedness. Denies fever. Denies chest pain, shortness of breath. Denies nausea, vomiting, diarrhea, abdominal pain. Allergies: penicillins - Physicial Exam PE: 08/11/19 20:50 Awake alert no acute distress head is atraumatic no midline cervical spine tenderness patient does have midline thoracic spine tenderness no lumbar sacral spinal tenderness. Lungs are clear bilaterally heart is regular without murmurs rubs or gallops abdomen is soft nontender there is lateral left hip tenderness decreased range of motion with pain in patient's lower extremities are otherwise nontender full range of motion skin is warm and dry no rash neurologically she is awake alert and oriented x3 - Medical Decision Making 08/11/19 20:51 a 78-year-old female on Eliquis for prior to this previous PE DVT here with rectal bleeding for 3 days and frequent falls. Patient states she has had persistent pain in her left lower quadrant left hip states she even had a fall today while in triage patient states pain is severe worse with trying to weight bear also complaining of left shoulder pain On my exam patient has left lateral shoulder tenderness midline thoracic spinal tenderness and left hip tenderness will require rectal exam CBC CMP EKG CT head cervical spine thoracic spine x-ray and chest x-ray patient will likely require admission due to frequent falls and concerns for GI bleed a 78-year-old female on Eliquis for prior to this previous PE DVT here with rectal bleeding for 3 days and frequent falls. Patient states she has had persistent pain in her left lower quadrant left hip states she even had a fall today while in triage patient states pain is severe worse with trying to weight bear also complaining of left shoulder pain On my exam patient has left lateral shoulder tenderness midline thoracic spinal tenderness and left hip tenderness will require rectal exam CBC CMP EKG CT head cervical spine thoracic spine x-ray and chest x-ray patient will likely require admission due to frequent falls and concerns for GI bleed Heart Score/ECG Review #1 ECG reviewed & interpreted by me at: 20:53 General ECG Interpretation: Sinus Rhythm, Normal Rate, Normal Intervals, No acute ischemic changes Compared to previous ECG there are: Other
--- NOTE | 2019-08-12 01:51 | HP ---
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 Pt has history of multiple falls in the past due to dizziness, however, the most recent fall was due to weakness. States about 9 days ago, she had fallen in her son's house ( who lives in [place]) and hurt her L shoulder. Pain radiates to the top of back making it difficult to stand. States she fell due to weakness in her legs, but does not endorse any associated chest pain, headaches, vision changes. In the past she has fallen multiple times due to vertigo, however this did not seem the same. She does also have chronic back pain. States because she already bought airline tickets to be with her daughter in [place], she decided not to pursue any medical evaluation after the fall so she could make her flight. Pt also states 3-4 day hx of bloody bowel movements. Describes her stool as solid with thick red chunks all seen in the toilet. Has had a colonoscopy in the past in [place] 6 years ago with 2 polyps removed that came back benign. ER course was notable for: (1) H/H wnl, FOBT neg (2) (3) Recent Travel: Came from [place] last Wednesday PAST MEDICAL HISTORY: As per HPI PAST SURGICAL HISTORY: b/l eye surgery L breast biopsy (benign) bladder prolapse surgery hysterectomy Social History: Smoking: Denies Alcohol: Denies Drugs: Denies Drinks a lot of coffee has 1 son and 1 daughter Allergies Penicillins Allergy (Verified 08/11/19 16:40) Swelling HOME MEDICATIONS: Home Medications Medication Instructions Recorded Albuterol Sulfate Inhaler - 1 - 2 inh PO Q4H 04/15/17 [Ventolin HFA Inhaler -] Fluticasone Prop 0.05% Nasal 1 - 2 spray NS BID 04/15/17 [Flonase -] Levothyroxine [Synthroid -] 25 mcg PO DAILY 04/15/17 Losartan/Hydrochlorothiazide 1 each PO DAILY 04/15/17 [Losartan-Hctz 100-25 mg Tab] Montelukast Na [Singulair -] 10 mg PO HS 04/15/17 Pantoprazole Sodium [Protonix -] 40 mg PO DAILY 04/15/17 Salmeterol/Fluticasone [Advair 1 inh PO BID 05/02/17 250Mcg/50Mcg -] Simvastatin 40 mg PO HS 06/13/17 Albuterol 0.083% Nebulizer Prabha 1 neb NEB Q4H PRN #20 vial 02/15/18 [Ventolin 0.083% Nebulizer Soln -] Apixaban [Eliquis] 2.5 mg PO BID 06/11/19 Linaclotide [Linzess] 290 mcg PO DAILY 08/12/19 REVIEW OF SYSTEMS CONSTITUTIONAL: Absent: fever, chills, diaphoresis, generalized weakness, malaise, loss of appetite, weight change HEENT: Absent: rhinorrhea, nasal congestion, throat pain, throat swelling, difficulty swallowing, mouth swelling, ear pain, eye pain, visual changes CARDIOVASCULAR: Absent: chest pain, syncope, palpitations, irregular heart rate, lightheadedness , peripheral edema RESPIRATORY: Absent: cough, shortness of breath, dyspnea with exertion, orthopnea, wheezing, stridor, hemoptysis GASTROINTESTINAL: Absent: abdominal pain, abdominal distension, nausea, vomiting, diarrhea, constipation, melena, hematochezia GENITOURINARY: Absent: dysuria, frequency, urgency, hesitancy, hematuria, flank pain, genital pain MUSCULOSKELETAL: Absent: myalgia, arthralgia, joint swelling, back pain, neck pain SKIN: Absent: rash, itching, pallor HEMATOLOGIC/IMMUNOLOGIC: Absent: easy bleeding, easy bruising, lymphadenopathy, frequent infections ENDOCRINE: Absent: unexplained weight gain, unexplained weight loss, heat intolerance, cold intolerance NEUROLOGIC: Absent: headache, focal weakness or paresthesias, dizziness, unsteady gait, seizure, mental status changes, bladder or bowel incontinence PSYCHIATRIC: Absent: anxiety, depression, suicidal or homicidal ideation, hallucinations. PHYSICAL EXAMINATION Vital Signs - 24 hr 08/11/19 16:40 Temperature 97.8 F Pulse Rate 70 Respiratory 16 Rate Blood Pressure 140/65 O2 Sat by Pulse 100 Oximetry (%) GENERAL: Awake, alert, and fully oriented, in no acute distress. HEAD: Normal with no signs of trauma. EYES: Pupils equal, round and reactive to light, extraocular movements intact, sclera anicteric, conjunctiva clear. No lid lag. EARS, NOSE, THROAT: Ears normal, nares patent, oropharynx clear without exudates. Moist mucous membranes. NECK: Normal range of motion, supple without lymphadenopathy, JVD, or masses. LUNGS: Breath sounds equal, clear to auscultation bilaterally. No wheezes, and no crackles. No accessory muscle use. HEART: Regular rate and rhythm, normal S1 and S2 without murmur, rub or gallop. ABDOMEN: Soft, nontender, not distended, normoactive bowel sounds, no guarding, no rebound, no masses. No hepatomegaly or splenomegaly. MUSCULOSKELETAL: Normal range of motion at all joints. No bony deformities or tenderness. No CVA tenderness. UPPER EXTREMITIES: 2+ pulses, warm, well-perfused. No cyanosis. No clubbing. No peripheral edema. LOWER EXTREMITIES: 2+ pulses, warm, well-perfused. No calf tenderness. No peripheral edema. NEUROLOGICAL: Cranial nerves II-XII intact. Normal speech. Normal gait. PSYCHIATRIC: Cooperative. Good eye contact. Appropriate mood and affect. SKIN: Warm, dry, normal turgor, no rashes or lesions noted, normal capillary refill. Laboratory Results - last 24 hr 08/11/19 08/11/19 08/11/19 18:06 18:06 18:06 WBC 6.6 RBC 4.50 Hgb 12.3 Hct 38.7 MCV 85.9 MCH 27.3 MCHC 31.8 L RDW 15.9 H Plt Count 238 MPV 8.0 Absolute Neuts (auto) 3.8 Neutrophils % 58.7 Lymphocytes % 26.5 Monocytes % 9.1 Eosinophils % 4.9 H Basophils % 0.8 Nucleated RBC % 0 PT with INR INR PTT (Actin FS) 37.4 H Sodium Potassium Chloride Carbon Dioxide Anion Gap BUN Creatinine Est GFR (CKD-EPI)AfAm Est GFR (CKD-EPI)NonAf Random Glucose Calcium Total Bilirubin AST ALT Alkaline Phosphatase Creatine Kinase 40 Troponin I < 0.02 Total Protein Albumin Urine Color Urine Appearance Urine pH Ur Specific [place] Urine Protein Urine Glucose (UA) Urine Ketones Urine Blood Urine Nitrite Urine Bilirubin Urine Urobilinogen Ur Leukocyte Esterase Stool Occult Blood 08/11/19 08/11/19 08/11/19 18:06 18:06 18:20 WBC RBC Hgb Hct MCV MCH MCHC RDW Plt Count MPV Absolute Neuts (auto) Neutrophils % Lymphocytes % Monocytes % Eosinophils % Basophils % Nucleated RBC % PT with INR 13.40 H INR 1.13 H PTT (Actin FS) Sodium 142 Potassium 4.6 Chloride 110 H Carbon Dioxide 27 Anion Gap 4 L BUN 23.8 H Creatinine 0.8 Est GFR (CKD-EPI)AfAm 81.27 Est GFR (CKD-EPI)NonAf 70.12 Random Glucose 120 H Calcium 9.0 Total Bilirubin 0.3 AST 13 L ALT 16 Alkaline Phosphatase 87 Creatine Kinase Troponin I Total Protein 5.5 L Albumin 3.1 L Urine Color Yellow Urine Appearance Clear Urine pH 5.0 Ur Specific [place] 1.020 Urine Protein Negative Urine Glucose (UA) Negative Urine Ketones Negative Urine Blood Negative Urine Nitrite Negative Urine Bilirubin Negative Urine Urobilinogen 0.2 Ur Leukocyte Esterase Negative Stool Occult Blood 08/11/19 20:44 WBC RBC Hgb Hct MCV MCH MCHC RDW Plt Count MPV Absolute Neuts (auto) Neutrophils % Lymphocytes % Monocytes % Eosinophils % Basophils % Nucleated RBC % PT with INR INR PTT (Actin FS) Sodium Potassium Chloride Carbon Dioxide Anion Gap BUN Creatinine Est GFR (CKD-EPI)AfAm Est GFR (CKD-EPI)NonAf Random Glucose Calcium Total Bilirubin AST ALT Alkaline Phosphatase Creatine Kinase Troponin I Total Protein Albumin Urine Color Urine Appearance Urine pH Ur Specific [place] Urine Protein Urine Glucose (UA) Urine Ketones Urine Blood Urine Nitrite Urine Bilirubin Urine Urobilinogen Ur Leukocyte Esterase Stool Occult Blood Negative LLE CT: neg Head CT: neg ASSESSMENT/PLAN: 78F with a 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 #Rectal Bleeding; likely 2/2 Eliquis Pt currently HD stable, H/H wnl -Hold Eliquis for now -GI consult, pt is hemodynamically stable, however given recent hx of GI bleed, may need inpatient evaluation. Otherwise can follow up as outpatient -recheck CBC q6h; if Hgb <7, transfuse PRN -NPO for now -Cont Protonix 40 #DVT; hold home Eliquis in setting of rectal bleed #HTN/HLD; Cont home med: Lipitor 20, Losartan 100, HCTZ 25 #Hypothyroidism; Cont home med: Synthroid 25 mcg #DM; BGM/ISS ACHS #Asthma; Cont home Albuterol nebs PRN #Prophylaxis DVT: Hold AC for now in setting of GI bleed #FEN DVT: Hold home Eliquis for now due to rectal bleed GI: Cont home Protonix 40 Dispo -admit to med-surg Visit type - Emergency Visit Emergency Visit: Yes ED Registration Date: 08/11/19 Care time: The patient presented to the Emergency Department on the above date and was hospitalized for further evaluation of their emergent condition. - New Patient This patient is new to me today: Yes Date on this admission: 08/12/19 - Critical Care Critical Care patient: No ATTENDING PHYSICIAN STATEMENT I saw and evaluated the patient. I reviewed the resident's note and discussed the case with the resident. I agree with the resident's findings and plan as documented. SUBJECTIVE: OBJECTIVE: ASSESSMENT AND PLAN:
--- NOTE | 2019-08-12 01:51 | PN ---
Teaching Attending Note Name of Resident: Gema Zapien ATTENDING PHYSICIAN STATEMENT I saw and evaluated the patient. I reviewed the resident's note and discussed the case with the resident. I agree with the resident's findings and plan as documented. SUBJECTIVE: 78 year old female with a past medical history of prior DVTs On Eliquis, Diabetes mellitus, and TIA Reports fall 9 days ago when she was in [place]. Patient did not seek medical attention at that time, reports falling on her left side of her body. Has been ambulating ever since. Complained of some left shoulder pain. Patient complained of dark blood colored streaks in stool about 3 days ago. She reports that she has been taking Aleve for the past 4 days. Denied any epigastric pain or nausea. OBJECTIVE: Last Vital Signs Temp Pulse Resp BP Pulse Ox 97.8 F 70 16 140/65 100 08/11/19 16:40 08/11/19 16:40 08/11/19 16:40 08/11/19 16:40 08/11/19 16:40 GENERAL: Well developed, well nourished. Awake and alert. No acute distress. HEENT: Normocephalic, atraumatic. PERRLA, EOMI. No conjunctival pallor. Sclera are non- icteric. Moist mucous membranes. Oropharynx is clear. NECK: Supple. Full ROM. No JVD. Carotid pulses 2+ and symmetric, without bruits. No thyromegaly. No lymphadenopathy. CARDIOVASCULAR: Regular rate and rhythm. No murmurs, rubs, or gallops. Distal pulses are 2+ and symmetric. PULMONARY: No evidence of respiratory distress. Lungs clear to auscultation bilaterally. No wheezing, rales or rhonchi. ABDOMINAL: Soft. Non-tender. Non-distended. No rebound or guarding. No organomegaly. Normoactive bowel sounds. MUSCULOSKELETAL Normal range of motion at all joints. No bony deformities or tenderness. No CVA tenderness. EXTREMITIES: No cyanosis. No clubbing. No edema. No calf tenderness. SKIN: Warm and dry. Normal capillary refill. No rashes. No jaundice. PSYCHIATRIC: Cooperative. Good eye contact. Appropriate mood and affect. Abnormal Lab Results 08/11/19 08/11/19 08/11/19 18:06 18:06 18:06 MCHC 31.8 L RDW 15.9 H Eosinophils % 4.9 H PT with INR INR PTT (Actin FS) 37.4 H Chloride 110 H Anion Gap 4 L BUN 23.8 H Random Glucose 120 H AST 13 L Total Protein 5.5 L Albumin 3.1 L 08/11/19 18:06 MCHC RDW Eosinophils % PT with INR 13.40 H INR 1.13 H PTT (Actin FS) Chloride Anion Gap BUN Random Glucose AST Total Protein Albumin Imaging studies reviewed ASSESSMENT AND PLAN: 78-year-old woman status post fall Lower extremity CT, head CT were negative for any fractures. Left shoulder x- ray was grossly negative for fractures on my review however official report is lacking at this time. Admit to [facility] Echo Follow-up official readings for pelvis and left shoulder x-ray #Bright red bleeding per rectumhemodynamically stable at this time, H&H is stable, No evidence of bleeding in emergency room can be admitted to regular floor Monitor vital signs closely Keep n.p.o. Monitor CBC every 6 hours Drop in CBC would consider PRBC transfusion At this time would hold antiplatelet and anticoagulant agents GI evaluation for possible EGD or colonoscopy #Hypothyroidism Send TSH Continue levothyroxine 25 mcg p.o. daily SCDs for DVT prophylaxis
[2019-08-12 03:30] VITALS: BMI 30.4
[2019-08-12] MEDS: PANTOPRAZOLE SODIUM 40 MG VIAL IVPUSH SCH ×2 (06:50→21:46)
[2019-08-12] MEDS: LEVOTHYROXINE NA 25 MCG TABLET (FP) PO SCH (06:51)
[2019-08-12] MEDS: INSULIN SLIDING SCALE (NOVOLOG) 1 VIAL SQ SCH ×4 (06:53→21:46)
[2019-08-12] MEDS ORDERED: PT OWN MED DRAWER 7, Y5N ONE (09:49)
[2019-08-12] MEDS ORDERED: PANTOPRAZOLE SODIUM 40 MG VIAL IVPUSH SCH (10:00)
[2019-08-12] MEDS ORDERED: PANTOPRAZOLE 40 MG TABLET (FP) PO SCH (10:00)
[2019-08-12] MEDS ORDERED: APIXABAN 2.5 MG TABLET PO SCH (10:00)
[2019-08-12] MEDS ORDERED: PATIENT'S OWN MEDICATION (NON-FORMULARY) (Losartan/Hydrochlorothiazide [Losartan-Hctz 100- PO SCH (10:00)
[2019-08-12] MEDS ORDERED: PATIENT'S OWN MEDICATION (NON-FORMULARY) (Linaclotide [Linzess] 290 MCG) PO SCH (10:00)
[2019-08-12] MEDS: LOSARTAN 50MG/HCTZ 12.5MG 1 TAB (FP) PO SCH (10:32)
[2019-08-12] MEDS: DOCUSATE SODIUM 100 MG CAPSULE (FP) PO SCH ×2 (12:30→21:45)
[2019-08-12] MEDS ORDERED: ACETAMINOPHEN 325 MG TABLET (FP) ONE (19:19)
[2019-08-12] MEDS: ACETAMINOPHEN 325 MG TABLET (FP) PO PRN (19:23)
[2019-08-12] MEDS ORDERED: INSULIN (NOVOLOG) ASPART 100 UNITS/ML 10ML VIAL ONE (21:16)
[2019-08-12] MEDS: levETIRAcetam 500 MG TABLET (FP) PO SCH (21:45)
[2019-08-12] MEDS: MONTELUKAST NA 10 MG TABLET PO SCH (21:46)
[2019-08-12] MEDS: ATORVASTATIN CA 20 MG TABLET (FP) PO SCH (21:46)
[2019-08-12] MEDS: BUDESONIDE/FORMETEROL FUMARATE 80/4.5 mcg INHALER IH SCH (21:46)
[2019-08-12] MEDS ORDERED: PATIENT'S OWN MEDICATION (NON-FORMULARY) (Salmeterol/Fluticasone [Advair 250mcg/50mcg -] 1 PO SCH (22:00)
[2019-08-13] MEDS: LEVOTHYROXINE NA 25 MCG TABLET (FP) PO SCH (06:15)
[2019-08-13] MEDS: INSULIN SLIDING SCALE (NOVOLOG) 1 VIAL SQ SCH ×4 (06:15→22:12)
[2019-08-13 07:54] LABS: HEMATOCRIT 35.9 % (32.4-45.2); HEMOGLOBIN 11.6 GM/dL (10.7-15.3); MCH 27.7 pg (25.7-33.7); MCHC 32.4 g/dl (32.0-36.0); MEAN CELL VOLUME 85.5 fl (80-96); MEAN PLT VOLUME 7.8 fl (7.5-11.1); PLATELET COUNT 265 K/MM3 (134-434); RDW 16.2 % (11.6-15.6); WHITE BLOOD COUNT 5.8 K/mm3 (4.0-10.0)
[2019-08-13 08:12] LABS: BLOOD UREA NITROGEN 19.4 mg/dL (7-18); CALCIUM 8.7 mg/dL (8.5-10.1); CREATININE 0.7 mg/dL (0.55-1.3); POTASSIUM 4.2 mmol/L (3.5-5.1)
[2019-08-13] MEDS ORDERED: MECLIZINE HCL 12.5 MG TABLET PO PRN (08:30)
[2019-08-13] MEDS ORDERED: PT OWN MED DRAWER 7, Y5N ONE ×2 (09:07→11:26)
[2019-08-13] MEDS: levETIRAcetam 500 MG TABLET (FP) PO SCH ×2 (09:09→22:11)
[2019-08-13] MEDS: LOSARTAN 50MG/HCTZ 12.5MG 1 TAB (FP) PO SCH (09:09)
[2019-08-13] MEDS: FLUTICASONE PROP 0.05% 16 GM NASAL SPRAY NS SCH (09:09)
[2019-08-13] MEDS: BUDESONIDE/FORMETEROL FUMARATE 80/4.5 mcg INHALER IH SCH ×2 (09:10→22:12)
[2019-08-13] MEDS: PANTOPRAZOLE SODIUM 40 MG VIAL IVPUSH SCH ×2 (09:10→22:12)
[2019-08-13] MEDS: DOCUSATE SODIUM 100 MG CAPSULE (FP) PO SCH ×2 (09:15→22:06)
--- NOTE | 2019-08-13 11:51 | PN ---
Progress Note (short form) - Note Progress Note: Patient is complaining of dizziness this morning. She feels like the room is spinning. No nausea vomiting diarrhea or any other symptoms she ate well. She also slept well last night. History of present illness this is a 78-year-old female who speaks [place] with history of DVT on both sides on Eliquis, hypertension TIA in the past chronic vertigo on meclizine also hypothyroidism and hyperlipidemia came to the hospital with falls and also bloody bowel movement. Vital Signs Period Temp Pulse Resp BP Sys/[place] Pulse Ox Last 24 Hr 98.1 F-98.2 F 80-92 20-20 103-116/47-57 96 Physical examination as below She looks comfortable no distress HEENT negative trauma eyes movements normal Neck supple negative JVD Lungs clear Heart S1-S2 positive no arrhythmia Abdomen soft nontender no organomegaly extremities negative cyanosis clubbing edema. 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 #Rectal Bleeding; Stool for guaiac test is negative and I did not see any bleeding. Also her hemoglobin is stable so I will restart back her on Eliquis #Dizziness chronic and history of also. Will start her on meclizine 12.53 times a day as needed #DVT; restart Eliquis #HTN/HLD; Cont home med: Lipitor 20, Losartan 100, HCTZ 25 #Hypothyroidism; Cont home med: Synthroid 25 mcg #DM; BGM/ISS ACHS #Asthma; Cont home Albuterol nebs PRN #Prophylaxis Restart Eliquis #FEN DVT: Hold home Eliquis for now due to rectal bleed GI: Cont home Protonix 40 Note all the work-up for fracture in the hospital is negative including her x- rays of the shoulder spine. Also had a CAT scan of the head which is normal also she had a CAT scan of the lower extremities which is a normal. At this time I recommend patient should go for rehabilitation for chronic falling and also chronic dizziness. Will start physical therapy. Visit type - Emergency Visit Emergency Visit: Yes ED Registration Date: 08/11/19 Care time: The patient presented to the Emergency Department on the above date and was hospitalized for further evaluation of their emergent condition. - New Patient This patient is new to me today: Yes Date on this admission: 08/13/19 - Critical Care Critical Care patient: No - Discharge Referral Referred to [facility] No
[2019-08-13] MEDS: APIXABAN 2.5 MG TABLET PO SCH ×2 (13:09→22:11)
[2019-08-13] MEDS ORDERED: CELECOXIB 100 MG CAPSULE PO PRN (13:28)
--- NOTE | 2019-08-13 20:17 | EKG ---
Test Reason : Blood Pressure : / mmHG Vent. Rate : 082 BPM Atrial Rate : 082 BPM P-R Int : 126 ms QRS Dur : 074 ms QT Int : 370 ms P-R-T Axes : 044 026 031 degrees QTc Int : 432 ms SINUS RHYTHM WITH PREMATURE VENTRICULAR COMPLEXES OTHERWISE NORMAL ECG WHEN COMPARED WITH ECG OF 27-JUN-2019 09:23, ABERRANT CONDUCTION IS NOW PRESENT Confirmed by LUIS MANUEL MAGANA MD ([id number]) on 08/13/2019 8:17:13 PM Referred By: Confirmed By:LUIS MANUEL MAGANA MD
[2019-08-13] MEDS ORDERED: INSULIN (NOVOLOG) ASPART 100 UNITS/ML 10ML VIAL ONE (21:29)
[2019-08-13] MEDS: MONTELUKAST NA 10 MG TABLET PO SCH (22:12)
[2019-08-13] MEDS: ATORVASTATIN CA 20 MG TABLET (FP) PO SCH (22:12)
[2019-08-13] MEDS: ACETAMINOPHEN 325 MG TABLET (FP) PO PRN (22:12)
[2019-08-13] MEDS: oxyCODONE HCL 5 MG TABLET PO PRN (22:13)
[2019-08-14] MEDS: INSULIN SLIDING SCALE (NOVOLOG) 1 VIAL SQ SCH ×4 (06:38→21:21)
[2019-08-14] MEDS: LEVOTHYROXINE NA 25 MCG TABLET (FP) PO SCH (06:39)
[2019-08-14] MEDS: levETIRAcetam 500 MG TABLET (FP) PO SCH ×2 (09:45→21:21)
[2019-08-14] MEDS: PANTOPRAZOLE SODIUM 40 MG VIAL IVPUSH SCH ×2 (09:45→21:21)
[2019-08-14] MEDS: oxyCODONE HCL 5 MG TABLET PO PRN ×2 (09:45→15:39)
[2019-08-14] MEDS: DOCUSATE SODIUM 100 MG CAPSULE (FP) PO SCH ×2 (09:45→21:21)
[2019-08-14] MEDS: APIXABAN 2.5 MG TABLET PO SCH ×2 (09:45→21:21)
[2019-08-14] MEDS: LOSARTAN 50MG/HCTZ 12.5MG 1 TAB (FP) PO SCH (09:46)
[2019-08-14] MEDS: FLUTICASONE PROP 0.05% 16 GM NASAL SPRAY NS SCH (09:46)
[2019-08-14] MEDS: BUDESONIDE/FORMETEROL FUMARATE 80/4.5 mcg INHALER IH SCH ×2 (09:47→21:22)
[2019-08-14] MEDS: ACETAMINOPHEN 325 MG TABLET (FP) PO PRN (15:47)
--- NOTE | 2019-08-14 17:29 | FALL ---
<AleidaYadi - Last Filed: 08/14/19 17:27> Fall Exam - Event Witnessed fall: Yes Location of Fall: Patient Room Fall from: While ambulating - Pre-Fall Mental Status: Alert, Oriented, Cooperative Current Medications: Current Medications Generic Name Dose Route Start Last Admin Trade Name Freq PRN Reason Stop Dose Admin Acetaminophen 650 mg 08/12/19 19:14 08/12/19 19:23 Tylenol - PO 650 mg Q6H PRN Administration PAIN LEVEL 4 - 6 Acetaminophen 325 mg 08/13/19 14:24 08/14/19 15:47 Tylenol - PO 325 mg BID PRN Administration PAIN 6-10 Albuterol Sulfate 1 amp 08/12/19 01:50 Ventolin 0.083% Nebulizer Soln - NEB Q4H PRN ASTHMA Apixaban 2.5 mg 08/13/19 12:30 08/14/19 09:45 Eliquis - PO 2.5 mg BID LUIZA Administration Atorvastatin Calcium 20 mg 08/12/19 22:00 08/13/19 22:12 Lipitor - PO 20 mg HS LUIZA Administration Budesonide/Formoterol Fumarate 1 puff 08/12/19 22:00 08/14/19 09:47 Symbicort 80/4.5mcg - IH 1 puff BID LUIZA Administration Docusate Sodium 100 mg 08/12/19 11:00 08/14/19 09:45 Colace - PO 100 mg BID LUIZA Administration Fluticasone Propionate 1 spray 08/13/19 10:00 08/14/19 09:46 Flonase - NS 1 spray DAILY LUIZA Administration HCTZ/Losartan Potassium 2 tab 08/12/19 10:00 08/14/19 09:46 Hyzaar - PO 2 tab DAILY LUIZA Administration Insulin Aspart 1 vial 08/12/19 07:00 08/14/19 11:10 Novolog Vial Sliding Scale - SQ Not Given ACHS LUIZA Protocol Levetiracetam 750 mg 08/12/19 22:00 08/14/19 09:45 Keppra - PO 750 mg BID LUIZA Administration Levothyroxine Sodium 25 mcg 08/12/19 07:00 08/14/19 06:39 Synthroid - PO 25 mcg DAILY@0700 LUIZA Administration Meclizine HCl 12.5 mg 08/13/19 08:30 08/13/19 09:08 Antivert - PO 12.5 mg Q6H PRN Administration NAUSEA Montelukast Sodium 10 mg 08/12/19 22:00 08/13/19 22:12 Singulair - PO 10 mg HS LUIZA Administration Non-Formulary Medication 290 mcg 08/12/19 10:00 Linaclotide [Linzess] PO DAILY LUIZA Oxycodone HCl 5 mg 08/13/19 14:23 08/14/19 15:39 Roxicodone - PO 5 mg BID PRN Administration PAIN 6-10 Pantoprazole Sodium 40 mg 08/12/19 06:00 08/14/19 09:45 Protonix Iv IVPUSH 40 mg BID LUIZA Administration - Post-Fall Patient Outcome: No Injury Treatment: None Vital Signs: Vital Signs Temperature 97.9 F 08/14/19 14:08 Pulse Rate 92 H 08/14/19 14:08 Respiratory Rate 18 08/14/19 10:00 Blood Pressure 119/69 08/14/19 14:08 O2 Sat by Pulse Oximetry (%) 95 08/14/19 09:00 LOC Post-Fall: Awake, Alert, Oriented Identify factors for HIGH RISK for Head Injury: None of the above (Pt examined. VS WNL; hemodynamically stable. No head trauma. Examined. With LUE discomfort which pt had previous to fall. Was while ambulating. Witnessed by nurse who was helping assist patient when occurred. No LOC.) <Chivo Guzman - Last Filed: 08/14/19 23:55> Fall Exam - Event Witnessed fall: Yes - Pre-Fall Mental Status: Alert, Oriented, Cooperative Current Medications: Current Medications Generic Name Dose Route Start Last Admin Trade Name Freq PRN Reason Stop Dose Admin Acetaminophen 650 mg 08/12/19 19:14 08/12/19 19:23 Tylenol - PO 650 mg Q6H PRN Administration PAIN LEVEL 4 - 6 Acetaminophen 325 mg 08/13/19 14:24 08/14/19 15:47 Tylenol - PO 325 mg BID PRN Administration PAIN 6-10 Albuterol Sulfate 1 amp 08/12/19 01:50 Ventolin 0.083% Nebulizer Soln - NEB Q4H PRN ASTHMA Apixaban 2.5 mg 08/13/19 12:30 08/14/19 21:21 Eliquis - PO 2.5 mg BID LUIZA Administration Atorvastatin Calcium 20 mg 08/12/19 22:00 08/14/19 21:21 Lipitor - PO 20 mg HS LUIZA Administration Budesonide/Formoterol Fumarate 1 puff 08/12/19 22:00 08/14/19 21:22 Symbicort 80/4.5mcg - IH 1 puff BID LUIZA Administration Docusate Sodium 100 mg 08/12/19 11:00 08/14/19 21:21 Colace - PO 100 mg BID LUIZA Administration Fluticasone Propionate 1 spray 08/13/19 10:00 08/14/19 09:46 Flonase - NS 1 spray DAILY LUIZA Administration HCTZ/Losartan Potassium 2 tab 08/12/19 10:00 08/14/19 09:46 Hyzaar - PO 2 tab DAILY LUIZA Administration Insulin Aspart 1 vial 08/12/19 07:00 08/14/19 21:21 Novolog Vial Sliding Scale - SQ Not Given ACHS LUIZA Protocol Levetiracetam 750 mg 08/12/19 22:00 08/14/19 21:21 Keppra - PO 750 mg BID LUIZA Administration Levothyroxine Sodium 25 mcg 08/12/19 07:00 08/14/19 06:39 Synthroid - PO 25 mcg DAILY@0700 LUIZA Administration Meclizine HCl 12.5 mg 08/13/19 08:30 08/13/19 09:08 Antivert - PO 12.5 mg Q6H PRN Administration NAUSEA Montelukast Sodium 10 mg 08/12/19 22:00 08/14/19 21:21 Singulair - PO 10 mg HS LUIZA Administration Non-Formulary Medication 290 mcg 08/12/19 10:00 Linaclotide [Linzess] PO DAILY LUIZA Oxycodone HCl 5 mg 08/13/19 14:23 08/14/19 15:39 Roxicodone - PO 5 mg BID PRN Administration PAIN 6-10 Pantoprazole Sodium 40 mg 08/12/19 06:00 08/14/19 21:21 Protonix Iv IVPUSH 40 mg BID LUIZA Administration - Post-Fall Patient Outcome: No Injury Treatment: None Vital Signs: Vital Signs Temperature 98 F 08/14/19 23:27 Pulse Rate 86 08/14/19 23:27 Respiratory Rate 18 08/14/19 23:27 Blood Pressure 118/58 L 08/14/19 23:27 O2 Sat by Pulse Oximetry (%) 96 08/14/19 21:00 LOC Post-Fall: Awake, Alert, Oriented
[2019-08-14] MEDS ORDERED: INSULIN (NOVOLOG) ASPART 100 UNITS/ML 10ML VIAL ONE (21:16)
[2019-08-14] MEDS: MONTELUKAST NA 10 MG TABLET PO SCH (21:21)
[2019-08-14] MEDS: ATORVASTATIN CA 20 MG TABLET (FP) PO SCH (21:21)
[2019-08-15 00:33] LABS: EOS % 4.5 % (0-4.5); HEMATOCRIT 35.4 % (32.4-45.2); HEMOGLOBIN 11.3 GM/dL (10.7-15.3); LYMPH % 32.9 % (8-40); MCH 27.4 pg (25.7-33.7); MCHC 32.1 g/dl (32.0-36.0); MEAN CELL VOLUME 85.5 fl (80-96); MONO % 11.4 % (3.8-10.2); NEUT % 50.2 % (42.8-82.8); PLATELET COUNT 266 K/MM3 (134-434); RBC 4.14 M/mm3 (3.60-5.2); RDW 16.1 % (11.6-15.6); WHITE BLOOD COUNT 5.8 K/mm3 (4.0-10.0)
[2019-08-15] MEDS: LEVOTHYROXINE NA 25 MCG TABLET (FP) PO SCH (06:05)
[2019-08-15] MEDS: INSULIN SLIDING SCALE (NOVOLOG) 1 VIAL SQ SCH ×2 (06:06→11:16)
[2019-08-15 09:08] LABS: BLOOD UREA NITROGEN 17.5 mg/dL (7-18); CALCIUM 9.3 mg/dL (8.5-10.1); CREATININE 0.7 mg/dL (0.55-1.3); POTASSIUM 4.7 mmol/L (3.5-5.1)
[2019-08-15] MEDS: PANTOPRAZOLE SODIUM 40 MG VIAL IVPUSH SCH ×2 (09:59→21:19)
[2019-08-15] MEDS: oxyCODONE HCL 5 MG TABLET PO PRN (10:00)
[2019-08-15] MEDS: APIXABAN 2.5 MG TABLET PO SCH ×2 (10:00→21:18)
[2019-08-15] MEDS: DOCUSATE SODIUM 100 MG CAPSULE (FP) PO SCH ×2 (10:00→21:19)
--- NOTE | 2019-08-15 10:00 | PN ---
Teaching Attending Note Name of Resident: Yadi Shin ATTENDING PHYSICIAN STATEMENT I saw and evaluated the patient. I reviewed the resident's note and discussed the case with the resident. I agree with the resident's findings and plan as documented. SUBJECTIVE: OBJECTIVE: Vital Signs Period Temp Pulse Resp BP Sys/Sexton Pulse Ox Last 24 Hr 97.7 F-98.1 F 65-98 18-19 100-140/50-76 96 Laboratory Results - last 24 hr 08/14/19 08/14/19 08/14/19 11:02 16:50 21:19 WBC RBC Hgb Hct MCV MCH MCHC RDW Plt Count MPV Absolute Neuts (auto) Neutrophils % Lymphocytes % Monocytes % Eosinophils % Basophils % Nucleated RBC % Sodium Potassium Chloride Carbon Dioxide Anion Gap BUN Creatinine Est GFR (CKD-EPI)AfAm Est GFR (CKD-EPI)NonAf POC Glucometer 100 77 93 Random Glucose Calcium 08/15/19 08/15/19 08/15/19 00:20 05:37 08:09 WBC 5.8 RBC 4.14 Hgb 11.3 Hct 35.4 MCV 85.5 MCH 27.4 MCHC 32.1 RDW 16.1 H Plt Count 266 MPV 8.0 Absolute Neuts (auto) 2.9 Neutrophils % 50.2 Lymphocytes % 32.9 D Monocytes % 11.4 H Eosinophils % 4.5 Basophils % 1.0 Nucleated RBC % 0 Sodium 141 Potassium 4.7 Chloride 105 Carbon Dioxide 31 Anion Gap 5 L BUN 17.5 Creatinine 0.7 Est GFR (CKD-EPI)AfAm 95.51 Est GFR (CKD-EPI)NonAf 82.41 POC Glucometer 104 Random Glucose 98 Calcium 9.3 Current Medications Generic Name Dose Route Start Last Admin Trade Name Freq PRN Reason Stop Dose Admin Acetaminophen 650 mg 08/12/19 19:14 08/12/19 19:23 Tylenol - PO 650 mg Q6H PRN Administration PAIN LEVEL 4 - 6 Acetaminophen 325 mg 08/13/19 14:24 08/14/19 15:47 Tylenol - PO 325 mg BID PRN Administration PAIN 6-10 Albuterol Sulfate 1 amp 08/12/19 01:50 Ventolin 0.083% Nebulizer Soln - NEB Q4H PRN ASTHMA Apixaban 2.5 mg 08/13/19 12:30 08/14/19 21:21 Eliquis - PO 2.5 mg BID LUIZA Administration Atorvastatin Calcium 20 mg 08/12/19 22:00 08/14/19 21:21 Lipitor - PO 20 mg HS LUIZA Administration Budesonide/Formoterol Fumarate 1 puff 08/12/19 22:00 08/14/19 21:22 Symbicort 80/4.5mcg - IH 1 puff BID LUIZA Administration Docusate Sodium 100 mg 08/12/19 11:00 08/14/19 21:21 Colace - PO 100 mg BID LUIZA Administration Fluticasone Propionate 1 spray 08/13/19 10:00 08/14/19 09:46 Flonase - NS 1 spray DAILY LUIZA Administration Hydrochlorothiazide 25 mg 08/15/19 10:00 Hctz - PO DAILY LUIZA Insulin Aspart 1 vial 08/12/19 07:00 08/15/19 06:06 Novolog Vial Sliding Scale - SQ Not Given ACHS [facility] Protocol Levetiracetam 750 mg 08/12/19 22:00 08/14/19 21:21 Keppra - PO 750 mg BID LUIZA Administration Levothyroxine Sodium 25 mcg 08/12/19 07:00 08/15/19 06:05 Synthroid - PO 25 mcg DAILY@0700 ULIZA Administration Losartan Potassium 100 mg 08/15/19 10:00 Cozaar - PO DAILY LUIZA Meclizine HCl 12.5 mg 08/13/19 08:30 08/13/19 09:08 Antivert - PO 12.5 mg Q6H PRN Administration NAUSEA Montelukast Sodium 10 mg 08/12/19 22:00 08/14/19 21:21 Singulair - PO 10 mg HS LUIZA Administration Non-Formulary Medication 290 mcg 08/12/19 10:00 Linaclotide [Linzess] PO DAILY LUIZA Oxycodone HCl 5 mg 08/13/19 14:23 08/14/19 15:39 Roxicodone - PO 5 mg BID PRN Administration PAIN 6-10 Pantoprazole Sodium 40 mg 08/12/19 06:00 08/14/19 21:21 Protonix Iv IVPUSH 40 mg BID LUIZA Administration ASSESSMENT AND PLAN:
[2019-08-15] MEDS: HYDROCHLOROTHIAZIDE 25 MG TABLET (FP) PO SCH (10:06)
[2019-08-15] MEDS: LOSARTAN POTASSIUM 50 MG TABLET (FP) PO SCH (10:06)
[2019-08-15] MEDS: ACETAMINOPHEN 325 MG TABLET (FP) PO PRN (10:07)
[2019-08-15] MEDS: FLUTICASONE PROP 0.05% 16 GM NASAL SPRAY NS SCH (10:09)
[2019-08-15] MEDS: BUDESONIDE/FORMETEROL FUMARATE 80/4.5 mcg INHALER IH SCH ×2 (10:09→21:16)
[2019-08-15] MEDS: levETIRAcetam 500 MG TABLET (FP) PO SCH ×2 (10:10→21:17)
--- NOTE | 2019-08-15 11:59 | PN ---
Physical Exam: SUBJECTIVE: Patient seen and examined. She complains of neck pain radiating to her left shoulder and arm and pain shooting down both legs. She says she is unable to walk. At home, she uses a walker and a wheelchair. OBJECTIVE: Vital Signs Period Temp Pulse Resp BP Sys/Sexton Pulse Ox Last 24 Hr 97.7 F-98.8 F 65-92 16-19 100-120/50-69 96-96 GENERAL: The patient is awake, alert, and fully oriented, in no acute distress. NECK: Trachea midline, full range of motion, supple. (+) tenderness left of midline and overlying left scapula. LUNGS: Breath sounds equal, clear to auscultation bilaterally, no wheezes, no crackles, no accessory muscle use. HEART: Regular rate and rhythm, S1, S2 without murmur, rub or gallop. ABDOMEN: Soft, nontender, nondistended, normoactive bowel sounds, no guarding, no rebound, no hepatosplenomegaly, no masses. EXTREMITIES: 2+ pulses, warm, well-perfused, no edema. NEUROLOGICAL: Cranial nerves II through XII grossly intact. Strength 5/5 in RUE , 3/5 in LUE, 4/5 in both legs. Normal speech, gait not observed. Laboratory Results - last 24 hr 08/14/19 08/14/19 08/15/19 16:50 21:19 00:20 WBC 5.8 RBC 4.14 Hgb 11.3 Hct 35.4 MCV 85.5 MCH 27.4 MCHC 32.1 RDW 16.1 H Plt Count 266 MPV 8.0 Absolute Neuts (auto) 2.9 Neutrophils % 50.2 Lymphocytes % 32.9 D Monocytes % 11.4 H Eosinophils % 4.5 Basophils % 1.0 Nucleated RBC % 0 Sodium Potassium Chloride Carbon Dioxide Anion Gap BUN Creatinine Est GFR (CKD-EPI)AfAm Est GFR (CKD-EPI)NonAf POC Glucometer 77 93 Random Glucose Calcium 08/15/19 08/15/19 08/15/19 05:37 08:09 11:10 WBC RBC Hgb Hct MCV MCH MCHC RDW Plt Count MPV Absolute Neuts (auto) Neutrophils % Lymphocytes % Monocytes % Eosinophils % Basophils % Nucleated RBC % Sodium 141 Potassium 4.7 Chloride 105 Carbon Dioxide 31 Anion Gap 5 L BUN 17.5 Creatinine 0.7 Est GFR (CKD-EPI)AfAm 95.51 Est GFR (CKD-EPI)NonAf 82.41 POC Glucometer 104 81 Random Glucose 98 Calcium 9.3 Active Medications Generic Name Dose Route Start Last Admin Trade Name Freq PRN Reason Stop Dose Admin Acetaminophen 650 mg 08/12/19 19:14 08/12/19 19:23 Tylenol - PO 650 mg Q6H PRN Administration PAIN LEVEL 4 - 6 Acetaminophen 325 mg 08/13/19 14:24 08/15/19 10:07 Tylenol - PO 325 mg BID PRN Administration PAIN 6-10 Albuterol Sulfate 1 amp 08/12/19 01:50 Ventolin 0.083% Nebulizer Soln - NEB Q4H PRN ASTHMA Apixaban 2.5 mg 08/13/19 12:30 08/15/19 10:00 Eliquis - PO 2.5 mg BID LUIZA Administration Atorvastatin Calcium 20 mg 08/12/19 22:00 08/14/19 21:21 Lipitor - PO 20 mg HS LUIZA Administration Budesonide/Formoterol Fumarate 1 puff 08/12/19 22:00 08/15/19 10:09 Symbicort 80/4.5mcg - IH 1 puff BID LUIZA Administration Docusate Sodium 100 mg 08/12/19 11:00 08/15/19 10:00 Colace - PO 100 mg BID LUIZA Administration Fluticasone Propionate 1 spray 08/13/19 10:00 08/15/19 10:09 Flonase - NS 1 spray DAILY LUIZA Administration Hydrochlorothiazide 25 mg 08/15/19 10:00 08/15/19 10:06 Hctz - PO 25 mg DAILY LUIZA Administration Insulin Aspart 1 vial 08/12/19 07:00 08/15/19 11:16 Novolog Vial Sliding Scale - SQ Not Given ACHS LUIZA Protocol Levetiracetam 750 mg 08/12/19 22:00 08/15/19 10:10 Keppra - PO 750 mg BID LUIZA Administration Levothyroxine Sodium 25 mcg 08/12/19 07:00 08/15/19 06:05 Synthroid - PO 25 mcg DAILY@0700 LUIZA Administration Losartan Potassium 100 mg 08/15/19 10:00 08/15/19 10:06 Cozaar - PO 100 mg DAILY LUIZA Administration Meclizine HCl 12.5 mg 08/13/19 08:30 08/13/19 09:08 Antivert - PO 12.5 mg Q6H PRN Administration NAUSEA Montelukast Sodium 10 mg 08/12/19 22:00 08/14/19 21:21 Singulair - PO 10 mg HS LUIZA Administration Non-Formulary Medication 290 mcg 08/12/19 10:00 Linaclotide [Linzess] PO DAILY LUIZA Oxycodone HCl 5 mg 08/13/19 14:23 08/15/19 10:00 Roxicodone - PO 5 mg BID PRN Administration PAIN 6-10 Pantoprazole Sodium 40 mg 08/12/19 06:00 08/15/19 09:59 Protonix Iv IVPUSH 40 mg BID LUIZA Administration ASSESSMENT/PLAN: This is a 78 year old woman with a history of B/L DVTs, HTN, hyperlipidemia, TIA , vertigo, asthma, hypothyroidism who presented to the ED with falls, generalized weakness, and rectal bleeding. 1. Rectal bleeding - Stool is negative for occult blood - Hemoglobin is stable - Monitor for signs of bleeding back on Eliquis 2. Neck/LUE pain, bilateral LE pain, generalized weakness - Continue PT - Neurology evaluation 3. History of DVT - Continue Eliquis 4. HTN - Continue Cozaar, HCTZ 5. Hyperlipidemia - Continue Lipitor 6. Hypothyroidism - Continue Synthroid 7. History of TIA 8. Asthma - Stable - Continue Symbicort Visit type - Emergency Visit Emergency Visit: Yes ED Registration Date: 08/11/19 Care time: The patient presented to the Emergency Department on the above date and was hospitalized for further evaluation of their emergent condition. - New Patient This patient is new to me today: Yes Date on this admission: 08/15/19 - Critical Care Critical Care patient: No - Discharge Referral Referred to [facility] No
[2019-08-15] MEDS: MONTELUKAST NA 10 MG TABLET PO SCH (21:18)
[2019-08-15] MEDS: ATORVASTATIN CA 20 MG TABLET (FP) PO SCH (21:19)
[2019-08-16] MEDS: LEVOTHYROXINE NA 25 MCG TABLET (FP) PO SCH (06:27)
[2019-08-16] MEDS: oxyCODONE HCL 5 MG TABLET PO PRN (06:48)
[2019-08-16] MEDS: ACETAMINOPHEN 325 MG TABLET (FP) PO PRN ×2 (06:51→13:18)
--- NOTE | 2019-08-16 08:32 | CON.NEURO ---
Consult Consult Specialty:: NEUROLOGY-CAMILLA GUTIÉRREZ - History of Present Illness History of Present Illness: 78F with a 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 Pt has history of multiple falls in the past due to dizziness, however, the most recent fall was due to weakness. States about 9 days ago, she had fallen in her son's house ( who lives in [place]) and hurt her L shoulder. Pain radiates to the top of back making it difficult to stand. States she fell due to weakness in her legs, but does not endorse any associated chest pain, headaches, vision changes. In the past she has fallen multiple times due to vertigo, however this did not seem the same. She does also have chronic back pain. States because she already bought airline tickets to be with her daughter in [place], she decided not to pursue any medical evaluation after the fall so she could make her flight. States x 2 weeks at least has had bilat leg weakness, denies back pain/sensory symptoms. + urinary incont-she is unable to describe details. CT head-mild. vent. dilatation by report. Pt also states 3-4 day hx of bloody bowel movements. Describes her stool as solid with thick red chunks all seen in the toilet. Has had a colonoscopy in the past in [place] 6 years ago with 2 polyps removed that came back benign. 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, Seizure ( last seizure >10yrs ago), Vertigo Cardio/Vascular: Yes: Aortic Stenosis, HTN Pulmonary: Yes: Asthma Gastrointestinal: Yes: Gastritis, Peptic Ulcer Disease Musculoskeletal: Yes: Other (arthritis (type not specificed)) ENT: Yes: Sinusitis Endocrine: Yes: Hypothyroidism Additional Medical History: DVTs, HPL - Past Surgical History Past Surgical History: Yes: Breast Biopsy, Hysterectomy - Alcohol/Substance Use Hx Alcohol Use: No History of Substance Use: reports: None - Smoking History Smoking history: Never smoked Have you smoked in the past 12 months: No Aproximately how many cigarettes per day: 0 - Social History ADL: Independent Occupation: retired 20 yrs ago History of Recent Travel: Yes (traveled from [place]) Home Medications - Allergies Allergies/Adverse Reactions: Allergies Allergy/AdvReac Type Severity Reaction Status Date / Time Penicillins Allergy Swelling Verified 08/11/19 16:40 - Home Medications Home Medications: Ambulatory Orders Albuterol Sulfate Inhaler - [Ventolin HFA Inhaler -] 1 - 2 inh PO Q4H 04/15/17 Fluticasone Prop 0.05% Nasal [Flonase -] 1 - 2 spray NS BID 04/15/17 Levothyroxine [Synthroid -] 25 mcg PO DAILY 04/15/17 Losartan/Hydrochlorothiazide [Losartan-Hctz 100-25 mg Tab] 1 each PO DAILY 04/15 Montelukast Na [Singulair -] 10 mg PO HS 04/15/17 Pantoprazole Sodium [Protonix -] 40 mg PO DAILY 04/15/17 Salmeterol/Fluticasone [Advair 250Mcg/50Mcg -] 1 inh PO BID 05/02/17 Simvastatin 40 mg PO HS 06/13/17 Albuterol 0.083% Nebulizer Prabha [Ventolin 0.083% Nebulizer Soln -] 1 neb NEB Q4H PRN #20 vial 02/15/18 Apixaban [Eliquis] 2.5 mg PO BID 06/11/19 Linaclotide [Linzess] 290 mcg PO DAILY 08/12/19 levETIRAcetam [Keppra -] 750 mg PO BID 08/12/19 Benzonatate 200 mg PO BID 08/13/19 Celecoxib [Celebrex -] 200 mg PO DAILY 08/13/19 Meclizine HCl [Antivert -] 25 mg PO BID PRN 08/13/19 Physical Exam-Neuro Vital Signs: Vital Signs Temperature 98.2 F 08/16/19 05:50 Pulse Rate 82 08/16/19 05:50 Respiratory Rate 18 08/16/19 05:50 Blood Pressure 107/60 08/16/19 05:50 O2 Sat by Pulse Oximetry (%) 99 08/15/19 22:23 Labs: CBC, BMP 08/15/19 00:20 08/15/19 08:09 INR, PTT INR 1.13 (0.83-1.09) H 08/11/19 18:06 - Neuro Exam Level Of Consciousness: Yes: Alert, Oriented to Person, Oriented to Place Eyes: Yes: PERRL Mini Mental Exam: Loud, somewhat rapid speech, inattentive, unable to assess cognition Cranial Nerves II-XII Intact: Yes DTR's: 1+ Left Brachioradialis, 1+ Right Brachioradialis, 2+ Left Bicep, 2+ Right Bicep, 2+ Left Tricep, 2+ Right Tricep, 2+ Left Achilles, 2+ Right Achilles (bilat knees- 3+) Babinski: Present (Left) Motor Strength: 2/5: Right Leg, 3/5: Left Leg, 5/5: Left Arm, Right Arm Gait: Other (States cannot stand) Assessment/Plan Pt. with progressively increasing falls in last few weeks?? urinary incont. Her exam reveals bilat LE weakness, quite significant with increased tone in both legs. DDx. includes myelopathy(subacute), hydrocephalus, ?? ant. spinal art. occlusion. Suggest-MRI C/T/L spine, B12/TFTs-further management thereafter Thank you, Chandrakant villatoro MD
[2019-08-16] MEDS: levETIRAcetam 500 MG TABLET (FP) PO SCH ×2 (10:42→21:53)
[2019-08-16] MEDS: HYDROCHLOROTHIAZIDE 25 MG TABLET (FP) PO SCH (10:43)
[2019-08-16] MEDS: FLUTICASONE PROP 0.05% 16 GM NASAL SPRAY NS SCH (10:43)
[2019-08-16] MEDS: PANTOPRAZOLE SODIUM 40 MG VIAL IVPUSH SCH (10:43)
[2019-08-16] MEDS: DOCUSATE SODIUM 100 MG CAPSULE (FP) PO SCH ×2 (10:43→21:53)
[2019-08-16] MEDS: LOSARTAN POTASSIUM 50 MG TABLET (FP) PO SCH (10:43)
[2019-08-16] MEDS: BUDESONIDE/FORMETEROL FUMARATE 80/4.5 mcg INHALER IH SCH ×2 (10:44→21:52)
[2019-08-16] MEDS: APIXABAN 2.5 MG TABLET PO SCH ×2 (10:44→21:54)
[2019-08-16] MEDS: ALBUTEROL SO4 0.083% IH SOL 2.5 MG/3 ML VIAL.NEB. NEB PRN ×2 (14:21→14:24)
--- NOTE | 2019-08-16 15:19 | PN ---
Progress Note (short form) - Note Progress Note: Hospitalist Medicine Pt c/o pain in LE, back, and LUE. Appears anxious, explained need for work-up to pt. Expressed verbal understanding of plan Vitals 08/16/19 10:46 Temperature 98.3 F Pulse Rate 89 Respiratory 19 Rate Blood Pressure 124/61 Physical Exam General: resting in bed, appears anxious. in NAD HEENT: NCAT, PERRLA neck: supple. cardio: s1, s2 rrr. no r/m/g pulm: cta b/l. no accessory m usage abdomen: nontender, nondistended ext: 2+ pulses. no edema neuro: cns2-12 grossly intact. motor strength 3/5 LUE, +diffusely TTP. 4/5 in LE. psych: +anxious Laboratory Tests 08/16/19 10:18 Vitamin B12 500 Serum Folate 20 H Assessment/Plan This is a 78 y/o F with PMH of B/L DVTs, HTN, hyperlipidemia, TIA, vertigo, asthma, hypothyroidism who presented to the ED with falls, generalized weakness , and rectal bleeding. #Rectal bleeding -FOBT (-) -H/H stable -c/t follow as pt restarted on eliquis -on protonix 40mg IVP BID #Neck/LUE pain, bilateral LE pain, generalized weakness possible 2/2 ?subacute myelopathy -c/w PT -seen by neuro, f/u c-spine, T-spine, L-spine MRI -B12, folate levels WNL -f/u TSH; for reversible causes -tylenol PRN for pain -neuro on board: Dr. Guadarrama #Hx of DVT -c/w eliquis; no current signs of bleeding #HTN- controlled -c/w cozaar, HCTZ #HLD -c/w lipitor #hypothyroidism -c/w synthroid -f/u TSH #History of TIA #hx dizziness -c/w meclizine PRN #Asthma -currently not in exacerbation -c/w symbicort, singulair, nebs PRN #F/E/N not on IVF continue to follow lytes reg diet #PPX DVT: on eliquis #Dispo cont'd monitoring on med-surg fall risk, PT f/u spine imaging
--- NOTE | 2019-08-16 18:20 | PN ---
Teaching Attending Note Name of Resident: Yadi Shin ATTENDING PHYSICIAN STATEMENT I saw and evaluated the patient. I reviewed the resident's note and discussed the case with the resident. I agree with the resident's findings and plan as documented. SUBJECTIVE: Patient complains of neck, left shoulder/arm pain. OBJECTIVE: Vital Signs Period Temp Pulse Resp BP Sys/Sexton Pulse Ox Last 24 Hr 97.8 F-98.3 F 82-97 18-20 101-124/48-72 98-99 HEART: S1S2, RRR LUNGS: Clear ABDOMEN: Soft, non-tender, non-distended, normal BS EXTREMITIES: No edema Laboratory Results - last 24 hr 08/15/19 08/16/19 08/16/19 20:32 05:44 10:18 POC Glucometer 125 111 Vitamin B12 500 Serum Folate 20 H Current Medications Generic Name Dose Route Start Last Admin Trade Name Freq PRN Reason Stop Dose Admin Acetaminophen 650 mg 08/12/19 19:14 08/16/19 13:18 Tylenol - PO 650 mg Q6H PRN Administration PAIN LEVEL 4 - 6 Acetaminophen 325 mg 08/13/19 14:24 08/16/19 06:51 Tylenol - PO 325 mg BID PRN Administration PAIN 6-10 Albuterol Sulfate 1 amp 08/12/19 01:50 08/16/19 14:24 Ventolin 0.083% Nebulizer Soln - NEB 1 amp Q4H PRN Administration ASTHMA Apixaban 2.5 mg 08/13/19 12:30 08/16/19 10:44 Eliquis - PO 2.5 mg BID LUIZA Administration Atorvastatin Calcium 20 mg 08/12/19 22:00 08/15/19 21:19 Lipitor - PO 20 mg HS LUIZA Administration Budesonide/Formoterol Fumarate 1 puff 08/12/19 22:00 08/16/19 10:44 Symbicort 80/4.5mcg - IH 1 puff BID LUIZA Administration Docusate Sodium 100 mg 08/12/19 11:00 08/16/19 10:43 Colace - PO 100 mg BID LUIZA Administration Fluticasone Propionate 1 spray 08/13/19 10:00 08/16/19 10:43 Flonase - NS 1 spray DAILY LUIZA Administration Hydrochlorothiazide 25 mg 08/15/19 10:00 08/16/19 10:43 Hctz - PO 25 mg DAILY LUIZA Administration Levetiracetam 750 mg 08/12/19 22:00 08/16/19 10:42 Keppra - PO 750 mg BID LUIZA Administration Levothyroxine Sodium 25 mcg 08/12/19 07:00 08/16/19 06:27 Synthroid - PO 25 mcg DAILY@0700 LUIZA Administration Losartan Potassium 100 mg 08/15/19 10:00 08/16/19 10:43 Cozaar - PO 100 mg DAILY LUIZA Administration Meclizine HCl 12.5 mg 08/13/19 08:30 08/13/19 09:08 Antivert - PO 12.5 mg Q6H PRN Administration NAUSEA Montelukast Sodium 10 mg 08/12/19 22:00 08/15/19 21:18 Singulair - PO 10 mg HS LUIZA Administration Non-Formulary Medication 290 mcg 08/12/19 10:00 Linaclotide [Linzess] PO DAILY LUIZA Pantoprazole Sodium 40 mg 08/12/19 06:00 08/16/19 10:43 Protonix Iv IVPUSH 40 mg BID LUIZA Administration ASSESSMENT AND PLAN: This is a 78 year old woman with a history of B/L DVTs, HTN, hyperlipidemia, TIA , vertigo, asthma, hypothyroidism who presented to the ED with falls, generalized weakness, and rectal bleeding. 1. Rectal bleeding - Stool is negative for occult blood - Monitor for signs of bleeding on Eliquis 2. Neck/LUE pain, bilateral LE pain, generalized weakness with falls - Continue PT - Neurology input appreciated - MRI of C/T/L spine ordered - B12, folate ok - TSH pending 3. History of DVT - Continue Eliquis 4. HTN - Continue Cozaar, HCTZ 5. Hyperlipidemia - Continue Lipitor 6. Hypothyroidism - Continue Synthroid 7. History of TIA 8. Asthma - Stable - Continue Symbicort, Singulair
[2019-08-16] MEDS: ATORVASTATIN CA 20 MG TABLET (FP) PO SCH (21:52)
[2019-08-16] MEDS: MONTELUKAST NA 10 MG TABLET PO SCH (21:53)
[2019-08-17] MEDS: LEVOTHYROXINE NA 25 MCG TABLET (FP) PO SCH (06:00)
[2019-08-17] MEDS: FLUTICASONE PROP 0.05% 16 GM NASAL SPRAY NS SCH (10:56)
[2019-08-17] MEDS: BUDESONIDE/FORMETEROL FUMARATE 80/4.5 mcg INHALER IH SCH ×2 (10:56→21:35)
[2019-08-17] MEDS: levETIRAcetam 500 MG TABLET (FP) PO SCH ×2 (11:02→21:34)
[2019-08-17] MEDS: APIXABAN 2.5 MG TABLET PO SCH ×2 (11:04→21:34)
[2019-08-17] MEDS: PANTOPRAZOLE 40 MG TABLET (FP) PO SCH (11:04)
[2019-08-17] MEDS: HYDROCHLOROTHIAZIDE 25 MG TABLET (FP) PO SCH (11:05)
[2019-08-17] MEDS: LOSARTAN POTASSIUM 50 MG TABLET (FP) PO SCH (11:05)
[2019-08-17] MEDS: DOCUSATE SODIUM 100 MG CAPSULE (FP) PO SCH ×2 (11:05→21:34)
[2019-08-17] MEDS: ACETAMINOPHEN 325 MG TABLET (FP) PO PRN (11:06)
--- NOTE | 2019-08-17 11:58 | PN ---
Addendum entered and electronically signed by Yadi Shin, RESIDENT 08/17/19 12 :07: d/w pain mgmt - will add baclofen 10mg TID, percocet q6h PRN in addition to cymbalta 20mg BID. unable to do CS injection as inpatient d/t eliquis follow overnight for pain relief Original Note: Progress Note (short form) - Note Progress Note: Hospitalist Medicine Still c/o pain in her neck, LUE, back, and lower extremities. D/w son on phone, states she has also has c/o poor appetite 2/2 pain. Vitals 08/17/19 09:58 Temperature 97.8 F Pulse Rate 100 H Respiratory 19 Rate Blood Pressure 113/59 L Physical Exam General: resting in bed. improved mood. in NAD HEENT: NCAT, PERRLA neck: supple. cardio: s1, s2 rrr. no r/m/g pulm: cta b/l. no accessory m usage abdomen: obese, nontender, nondistended ext: 2+ pulses. no edema neuro: cns2-12 grossly intact. motor strength 3/5 LUE, +diffusely TTP, crepitus. 4/5 in LE. gait not assessed with difficulty sitting up psych: +anxious Laboratory Tests 08/16/19 08/17/19 10:18 06:00 Vitamin B12 500 Serum Folate 20 H TSH 2.29 Assessment/Plan This is a 78 y/o F with PMH of B/L DVTs, HTN, hyperlipidemia, TIA, vertigo, asthma, hypothyroidism who presented to the ED with falls, generalized weakness , and rectal bleeding. #Rectal bleeding -FOBT (-) -H/H stable -c/t follow as pt restarted on eliquis -on protonix 40mg IVP BID #Neck/LUE pain, bilateral LE pain, generalized weakness possible 2/2 ?subacute myelopathy -c/w PT; weakness, imbalance -d/w neuro results of MRI: mod canal stenosis, node L3, impingement L2 nerve root started on cymbalta 20mg BID -TSH, B12, folate levels WNL -tylenol PRN for pain -pain mgmt consulted for possible CS injection. pt is on eliquis -neuro on board: Dr. Guadarrama #Hx of DVT -c/w eliquis; no current signs of bleeding #HTN- controlled -c/w cozaar, HCTZ #HLD -c/w lipitor #hypothyroidism -c/w synthroid -f/u TSH #History of TIA #hx dizziness -c/w meclizine PRN #Asthma -currently not in exacerbation -c/w symbicort, singulair, nebs PRN #F/E/N not on IVF continue to follow lytes reg diet #PPX DVT: on eliquis #Dispo c/w PT will need pain mgmt assessment may need corticosteroid injection <Yadi Shin - Last Filed: 08/17/19 11:59> - Note Progress Note: Seen and examined; discussed at length with resident team and indicated consultants. Independently reviewed all tubbs historical, PE, diagnostic, and imaging findings. Agree with above documentation and assessment and plan as documented by resident aside from as supplemented below. No new events overnight; notes persisting pain but somewhat improved weakness. Needs scope outpatient. Reviewed GI recs and neuro recs. B12/TSH wnl, high Folate. MRI results per resident note. Consulting nsgy in AM. 10 sys ROS done and negative aside from HPI VS labs imaging reviewed NAD, AAO resting in bed NC AT EOMI PERRLA HR wnl, +s1/2 NT ND +BS CN2-12 wnl, no progressive neuro sx Normal mood, appropriate behavior MRI reviewed with the resident team A/P: Presents with ongoing bilateral pain in the lower extremiities with known history of fracture but only acute DJD seen on imaging. She is hemodynamcially stable and afebrile without red flag symptoms. Agree with above note. -Rectal bleeding (negative FOBT and no further bleed seen on eliquis; followup OP with GI) -Neck/LUE pain, bilateral LE pain, generalized weakness with falls (labs wnl, qualifies for rehab and is condiering, stable on floor with no red flag symptoms. Today is focused on her bilateral neuropathic symptoms on ant thigh) . -History of DVT on NOAC, stable. - HTN (On Cozaar, HCTZ) -Hyperlipidemia (Continue statin) -Hypothyroidism (Continue LT4) -History of TIA (On eliquis, statin) -Asthma (continue symbicort, monteleukast. No acute exacerbation noted) Full Code <Chivo Guzman - Last Filed: 08/18/19 22:45>
[2019-08-17] MEDS ORDERED: ACETAMINOPHEN 325 MG TABLET (FP) PO PRN (12:13)
[2019-08-17] MEDS ORDERED: PT OWN MED DRAWER 7, Y5N ONE (13:26)
[2019-08-17] MEDS: DULoxetine HCL 20 MG CAPSULE.DR PO SCH ×2 (13:38→21:33)
[2019-08-17] MEDS: BACLOFEN 10 MG TABLET (FP) PO SCH ×2 (13:39→21:34)
[2019-08-17] MEDS: MONTELUKAST NA 10 MG TABLET PO SCH (21:33)
[2019-08-17] MEDS: ATORVASTATIN CA 20 MG TABLET (FP) PO SCH (21:34)
[2019-08-18] MEDS: oxyCODONE HCL 5 MG TABLET PO PRN ×2 (00:36→09:26)
[2019-08-18] MEDS: LEVOTHYROXINE NA 25 MCG TABLET (FP) PO SCH (06:26)
[2019-08-18] MEDS: BACLOFEN 10 MG TABLET (FP) PO SCH ×3 (06:26→22:27)
[2019-08-18] MEDS: ACETAMINOPHEN 325 MG TABLET (FP) PO PRN (09:25)
[2019-08-18] MEDS: levETIRAcetam 500 MG TABLET (FP) PO SCH ×2 (09:25→22:25)
[2019-08-18] MEDS: HYDROCHLOROTHIAZIDE 25 MG TABLET (FP) PO SCH (09:25)
[2019-08-18] MEDS: LOSARTAN POTASSIUM 50 MG TABLET (FP) PO SCH (09:26)
[2019-08-18] MEDS: APIXABAN 2.5 MG TABLET PO SCH ×2 (09:26→22:27)
[2019-08-18] MEDS: PANTOPRAZOLE 40 MG TABLET (FP) PO SCH (09:26)
[2019-08-18] MEDS: BUDESONIDE/FORMETEROL FUMARATE 80/4.5 mcg INHALER IH SCH ×2 (09:27→22:26)
[2019-08-18] MEDS: DULoxetine HCL 20 MG CAPSULE.DR PO SCH ×2 (09:27→22:28)
[2019-08-18] MEDS: DOCUSATE SODIUM 100 MG CAPSULE (FP) PO SCH (09:27)
[2019-08-18] MEDS: FLUTICASONE PROP 0.05% 16 GM NASAL SPRAY NS SCH (09:28)
--- NOTE | 2019-08-18 09:42 | CON.GI ---
Consult Consult Specialty:: GI Referred by:: Hospitalist service Reason for Consultation:: Rectal bleeding prior to admission - History of Present Illness Chief Complaint: Leg weakness and inability to walk. 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 She states that she noticed blood mixed with her stool 3 days prior to admission and that she has been constipated. She has had no further bleeding. Gives history of recurrent DVT with latest recurrence ? 03/15 while on coumadin. Was taking celebrex as well. She believes that her last colonoscopy was 10 years ago, performed in [place], and that 2 polyps were removed. Her mother from colon cancer in her 50's. She denies abdominal pain, unintentional weight loss. 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 vaginal surgery - Alcohol/Substance Use Hx Alcohol Use: No History of Substance Use: reports: None - Smoking History Smoking history: Never smoked Have you smoked in the past 12 months: No Aproximately how many cigarettes per day: 0 - Social History ADL: Independent Occupation: retired 20 yrs ago Place of : Other ([place]) History of Recent Travel: Yes (traveled from [place]) Home Medications - Allergies Allergies/Adverse Reactions: Allergies Allergy/AdvReac Type Severity Reaction Status Date / Time Penicillins Allergy Swelling Verified 08/11/19 16:40 - Home Medications Home Medications: Ambulatory Orders Albuterol Sulfate Inhaler - [Ventolin HFA Inhaler -] 1 - 2 inh PO Q4H 04/15/17 Fluticasone Prop 0.05% Nasal [Flonase -] 1 - 2 spray NS BID 04/15/17 Levothyroxine [Synthroid -] 25 mcg PO DAILY 04/15/17 Losartan/Hydrochlorothiazide [Losartan-Hctz 100-25 mg Tab] 1 each PO DAILY 04/15 Montelukast Na [Singulair -] 10 mg PO HS 04/15/17 Pantoprazole Sodium [Protonix -] 40 mg PO DAILY 04/15/17 Salmeterol/Fluticasone [Advair 250Mcg/50Mcg -] 1 inh PO BID 05/02/17 Simvastatin 40 mg PO HS 06/13/17 Albuterol 0.083% Nebulizer Prabha [Ventolin 0.083% Nebulizer Soln -] 1 neb NEB Q4H PRN #20 vial 02/15/18 Apixaban [Eliquis] 2.5 mg PO BID 06/11/19 Linaclotide [Linzess] 290 mcg PO DAILY 08/12/19 levETIRAcetam [Keppra -] 750 mg PO BID 08/12/19 Benzonatate 200 mg PO BID 08/13/19 Celecoxib [Celebrex -] 200 mg PO DAILY 08/13/19 Meclizine HCl [Antivert -] 25 mg PO BID PRN 08/13/19 Family Medical History Family Hx Cancer: Mother (Colon cancer), Sister (BCA) Review of Systems - Review of Systems Cardiovascular: denies: Chest Pain Respiratory: reports: Cough, Wheezing Gastrointestinal: reports: Constipation, Rectal Bleeding. denies: Abdominal Pain, Diarrhea, Melena, Nausea, Vomiting Physical Exam-GI Vital Signs: Vital Signs Temperature 88 F L 08/18/19 09:31 Pulse Rate 95 H 08/18/19 09:31 Respiratory Rate 20 08/18/19 09:31 Blood Pressure 122/72 08/18/19 09:31 O2 Sat by Pulse Oximetry (%) 99 08/17/19 09:00 Constitutional: Yes: Calm Eyes: No: Sclera Icterus Cardiovascular: Yes: Regular Rate and Rhythm, Murmur (2/6 holosystolic murmur at the RSB) Respiratory: Yes: Wheezes (B/L expiratory wheezing) ...Auscultate: Yes: Normoactive Bowel Sounds ...Palpate: Yes: Soft. No: Hepatomegaly, Splenomegaly, Tenderness ...Percussion: No: Tympanitic ...Rectal Exam: Yes: Other (No external lesions, no masses, copious light brown stool in the rectal vault, guaiac negative) Edema: No (No LE edema) Neurological: Yes: Alert Labs: CBC, BMP 08/15/19 00:20 08/15/19 08:09 INR, PTT INR 1.13 (0.83-1.09) H 08/11/19 18:06 Hepatic Panel Total Bilirubin 0.3 mg/dL (0.2-1) 08/11/19 18:06 AST 13 U/L (15-37) L 08/11/19 18:06 ALT 16 U/L (13-61) 08/11/19 18:06 Alkaline Phosphatase 87 U/L (45-117) 08/11/19 18:06 Albumin 3.1 g/dl (3.4-5.0) L 08/11/19 18:06 Problem List - Problems (1) Rectal bleeding Assessment/Plan: None during admission. Given history of constipation, suspect bleeding precipiated by hemorrhoidal irritation. I did explain that she will need repeat colonoscopy given her family history of colon cancer. She had a recent recurrence of DVT per the patient. Will need coordination with a colon and rectal surgeon regarding management of her anticoagulation prior to her procedure. This can be done as an outpatient Patient is on opiate analgesia and has preexisting constipation. Should be on a bowel regimen. Added miralax Outpatient follow-up. Code(s): K62.5 - HEMORRHAGE OF ANUS AND RECTUM (2) Heart murmur Assessment/Plan: holosystolic murmur noted on exam. Work-up per primary team. Code(s): R01.1 - CARDIAC MURMUR, UNSPECIFIED
--- NOTE | 2019-08-18 10:14 | PN ---
Progress Note (short form) - Note Progress Note: Hospitalist Medicine Today pt continues to c/o pain in her LE, neck, and LUE. However, pain appears well-controlled. In no acute distress, d/w daughter over the phone. Vitals 08/18/19 09:31 Temperature 88 F L Pulse Rate 95 H Respiratory 20 Rate Blood Pressure 122/72 Physical Exam General: resting in bed. laughing, in NAD HEENT: NCAT, PERRLA neck: supple. cardio: s1, s2 rrr. no r/m/g pulm: cta b/l. no accessory m usage abdomen: obese, nontender, nondistended ext: 2+ pulses. no edema neuro: cns2-12 grossly intact. motor strength 3/5 LUE, +diffusely TTP, crepitus. 4/5 in LE. gait not assessed with difficulty sitting up psych: +anxious
[2019-08-18] MEDS: POLYETHYLENE GLYCOL 3350 119 GM BTL PO SCH (10:57)
[2019-08-18] MEDS: PANTOPRAZOLE 20 MG TABLET (FP) PO SCH (10:59)
--- NOTE | 2019-08-18 14:15 | PN ---
Progress Note (short form) - Note Progress Note: NEUROSURGERY Chart reviewed MRI reviewed Symptoms reviewed with patient B/L DVT , HTN, HLD, TIA, vertigo, asthma, hypothyroidism c/o a fall due to generalized weakness. H/o multiple falls in the past due to dizziness, but this fall was due to weakness. Fell in her son's house (in [place]) and hurt her L shoulder. LBP radiates to the top of back making it difficult to stand. States she fell due to weakness in her legs. L3 fx was from a fall a couple years ago , for which she was fitted with a TLSO. PE: AF, VSS HEENT- NC/AT; Neck- supple; Cor- RR; Lungs- CTA B; Abd- benign; Ext- mild edema CN- non-focal; Motor- 4+ B UE and LE except L DF 4- and R DF and B PF 4/5; Sensation- decreased B distal LE vibration; DTR- hyporeflexic Labs reviewed MRI C spine- C4-5, C5-6 disc protrusion with mild anterior cord impingement, L C5 root impingement; C5-6 mild anterior thecal sac impingement; no cord edema or myelomalacia MRI T spine- DDD T11-12, T12-L1 LS spine MRI- chronic L3 sup endplate fx; multilevel DDD, B lateral recess and foramenal narrowing with proximal root impingement Chronic lumbar DDD and cervical DDD Chronic L3 fx Neurosurgical intervention not indicated nor recommended given chronic findings and multiple medical risk factors Outpatient neurology and pain management f/u Consider elective LE EMG/NCS per neurology to r/o peripheral neuropathy
--- NOTE | 2019-08-18 16:14 | PN ---
Progress Note (short form) - Note Progress Note: Hospitalist Medicine Still c/o pain in her neck, LUE, back, and lower extremities. Eval by neurosx, no intervention needed. D/w SW at length, for SNF placement - to try and get auth on Wednesday, since daughter refusing to take pt home. Pt has also not been ambulatory. Vitals 08/18/19 15:26 Temperature 98.4 F Pulse Rate 95 H Respiratory 20 Rate Blood Pressure 105/68 Physical Exam General: resting in bed. laughing, in NAD HEENT: NCAT, PERRLA neck: supple. cardio: s1, s2 rrr. no r/m/g pulm: cta b/l. no accessory m usage abdomen: obese, nontender, nondistended ext: 2+ pulses. no edema neuro: cns2-12 grossly intact. motor strength 3/5 LUE, +diffusely TTP, crepitus. 4/5 in LE. gait not assessed with difficulty sitting up , however improved from yesterday. has not been ambulatory today psych: +anxious Laboratory Tests 08/16/19 08/17/19 10:18 06:00 Vitamin B12 500 Serum Folate 20 H TSH 2.29 Assessment/Plan This is a 78 y/o F with PMH of B/L DVTs, HTN, hyperlipidemia, TIA, vertigo, asthma, hypothyroidism who presented to the ED with falls, generalized weakness , and rectal bleeding. #Rectal bleeding -FOBT (-) -H/H stable -c/t follow as pt restarted on eliquis -on protonix -seen by GI, can have colonoscopy done outpt -GI: María Anguiano #Neck/LUE pain, bilateral LE pain, generalized weakness possible 2/2 ?subacute myelopathy -c/w PT; weakness, imbalance -d/w neuro results of MRI: mod canal stenosis, node L3, impingement L2 nerve root started on cymbalta 20mg BID, percocet, baclofen -on miralax bowel regimen -seen by neurosx; no acute intervention needed -outpatient CS injection, when off eliquis. coordinated by pain mgmt -TSH, B12, folate levels WNL -tylenol PRN for pain -neuro on board: Dr. Guadarrama #Hx of DVT -c/w eliquis; no current signs of bleeding #HTN- controlled -c/w cozaar, HCTZ #HLD -c/w lipitor #hypothyroidism -c/w synthroid -f/u TSH #History of TIA #hx dizziness -c/w meclizine PRN #Asthma -currently not in exacerbation -c/w symbicort, singulair, nebs PRN #F/E/N not on IVF continue to follow lytes reg diet #PPX DVT: on eliquis #Dispo c/w PT d/w SW at length: for placement on Wednesday, needs auth for SNF daughter refusing to take her home <Yadi Shin - Last Filed: 08/18/19 16:22> - Note Progress Note: Seen and examined; discussed at length with resident team and indicated consultants. Independently reviewed all tubbs historical, PE, diagnostic, and imaging findings. Agree with above documentation and assessment and plan as documented by resident aside from as supplemented below. Pain improved with no red flag symptoms; discussed with Dr. Yin who does not recommend for acute intervention. Patient wishes to proceed with rehab so will alert social work and case management and plan for placement. I discussed the need for likely SNF with daughter and patient this morning and both are agreeable. 10 sys ROS done and negative aside from HPI VS labs imaging reviewed NAD, AAO resting in bed NC AT EOMI PERRLA HR wnl, +s1/2 NT ND +BS CN2-12 wnl, no progressive neuro sx with stable LE strength and perhaps some dimished light tough but in tact pinprick No cerebellar signs. Normal mood, appropriate behavior MRI reviewed with the resident team A/P: Presents with ongoing bilateral pain in the lower extremiities with known history of fracture but only acute DJD seen on imaging. She is hemodynamcially stable and afebrile without red flag symptoms. Agree with above note. -Rectal bleeding (negative FOBT and no further bleed seen on eliquis; followup OP with GI) -Neck/LUE pain, bilateral LE pain, generalized weakness with falls (No acute neurosurgical evaluation needed; qualifies for SNF and needs placed). -History of DVT on NOAC, stable. - HTN (On Cozaar, HCTZ) -Hyperlipidemia (Continue statin) -Hypothyroidism (Continue LT4) -History of TIA (On eliquis, statin) -Asthma (continue symbicort, monteleukast. No acute exacerbation noted) Full Code <Chivo Guzman - Last Filed: 08/18/19 22:48>
[2019-08-18] MEDS: ATORVASTATIN CA 20 MG TABLET (FP) PO SCH (22:27)
[2019-08-18] MEDS: MONTELUKAST NA 10 MG TABLET PO SCH (22:27)
[2019-08-19] MEDS: BACLOFEN 10 MG TABLET (FP) PO SCH ×3 (06:54→22:12)
[2019-08-19] MEDS: LEVOTHYROXINE NA 25 MCG TABLET (FP) PO SCH (06:54)
[2019-08-19] MEDS ORDERED: PT OWN MED DRAWER 7, Y5N ONE ×2 (10:12→22:11)
[2019-08-19] MEDS: APIXABAN 2.5 MG TABLET PO SCH ×2 (10:13→22:12)
[2019-08-19] MEDS: PANTOPRAZOLE 20 MG TABLET (FP) PO SCH (10:13)
[2019-08-19] MEDS: HYDROCHLOROTHIAZIDE 25 MG TABLET (FP) PO SCH (10:13)
[2019-08-19] MEDS: levETIRAcetam 500 MG TABLET (FP) PO SCH ×2 (10:13→22:12)
[2019-08-19] MEDS: DULoxetine HCL 20 MG CAPSULE.DR PO SCH ×2 (10:13→22:12)
[2019-08-19] MEDS: LOSARTAN POTASSIUM 50 MG TABLET (FP) PO SCH (10:14)
[2019-08-19] MEDS: POLYETHYLENE GLYCOL 3350 119 GM BTL PO SCH (10:14)
[2019-08-19] MEDS: BUDESONIDE/FORMETEROL FUMARATE 80/4.5 mcg INHALER IH SCH ×2 (10:19→22:12)
[2019-08-19] MEDS: FLUTICASONE PROP 0.05% 16 GM NASAL SPRAY NS SCH (10:21)
--- NOTE | 2019-08-19 11:23 | PN ---
Progress Note (short form) - Note Progress Note: NEUROSURGERY No new complaint, resting comfortably H/o DVT, HTN, HLD, TIA, asthma, hypothyroidism c/o a fall due to generalized weakness. H/o multiple falls in the past due to dizziness, but this fall was due to weakness. Fell in her son's house (in [place]) and hurt her L shoulder. LBP radiates to the top of back making it difficult to stand. States she fell due to weakness in her legs. L3 fx was from a fall a couple years ago, for which she was fitted with a TLSO. PE: AF, VSS HEENT- NC/AT; Neck- supple; Cor- RR; Lungs- CTA B; Abd- benign; Ext- mild edema CN- non-focal; Motor- 4+ B UE and LE except L DF 4- and R DF and B PF 4/5; Sensation- decreased B distal LE vibration; DTR- hyporeflexic Labs reviewed MRI C spine- C4-5, C5-6 disc protrusion with mild anterior cord impingement, L C5 root impingement; C5-6 mild anterior thecal sac impingement; no cord edema or myelomalacia MRI T spine- DDD T11-12, T12-L1 LS spine MRI- chronic L3 sup endplate fx; multilevel DDD, B lateral recess and foramenal narrowing with proximal root impingement Chronic lumbar DDD and cervical DDD Chronic L3 fx Neurosurgical intervention not indicated nor recommended given chronic findings and multiple medical risk factors Rehab for safety and mobility Outpatient neurology and pain management f/u fdc Consider elective LE EMG/NCS per neurology to r/o peripheral neuropathy
[2019-08-19] MEDS ORDERED: ALBUTEROL SO4 0.083% IH SOL 2.5 MG/3 ML VIAL.NEB. NEB PRN (18:07)
--- NOTE | 2019-08-19 18:14 | PN ---
Progress Note, Physician History of Present Illness: Seen and examined at bedside. Still has neck back leg and shoulder pain but seems comfortable. Denies nausea vomiting fever chills chest pain or SOB. - Current Medication List Current Medications: Active Medications Acetaminophen (Tylenol -) 650 mg PO Q6H PRN PRN Reason: PAIN LEVEL 4 - 6 Last Admin: 08/18/19 09:25 Dose: 650 mg Acetaminophen (Tylenol -) 325 mg PO BID PRN PRN Reason: PAIN 6-10 Last Admin: 08/16/19 06:51 Dose: 325 mg Acetaminophen (Tylenol -) 325 mg PO Q6H PRN PRN Reason: PAIN LEVEL 7 - 10 Last Admin: 08/18/19 00:38 Dose: 325 mg Albuterol Sulfate (Ventolin 0.083% Nebulizer Soln -) 1 amp NEB Q4H PRN PRN Reason: SHORT OF BREATH/WHEEZING Albuterol/Ipratropium (Duoneb -) 1 amp NEB RQID [facility] Apixaban (Eliquis -) 2.5 mg PO BID [facility] Last Admin: 08/19/19 10:13 Dose: 2.5 mg Atorvastatin Calcium (Lipitor -) 20 mg PO HS [facility] Last Admin: 08/18/19 22:27 Dose: 20 mg Baclofen (Lioresal -) 10 mg PO TID [facility] Last Admin: 08/19/19 14:23 Dose: 10 mg Budesonide/Formoterol Fumarate (Symbicort 80/4.5mcg -) 1 puff IH BID [facility] Last Admin: 08/19/19 10:19 Dose: 1 spray Duloxetine HCl (Cymbalta -) 20 mg PO BID [facility] Last Admin: 08/19/19 10:13 Dose: 20 mg Fluticasone Propionate (Flonase -) 1 spray NS DAILY [facility] Last Admin: 08/19/19 10:21 Dose: 1 spray Hydrochlorothiazide (Hctz -) 25 mg PO DAILY [facility] Last Admin: 08/19/19 10:13 Dose: 25 mg Levetiracetam (Keppra -) 750 mg PO BID [facility] Last Admin: 08/19/19 10:13 Dose: 750 mg Levothyroxine Sodium (Synthroid -) 25 mcg PO DAILY@0700 [facility] Last Admin: 08/19/19 06:54 Dose: 25 mcg Losartan Potassium (Cozaar -) 100 mg PO DAILY [facility] Last Admin: 08/19/19 10:14 Dose: 100 mg Meclizine HCl (Antivert -) 12.5 mg PO Q6H PRN PRN Reason: NAUSEA Last Admin: 08/13/19 09:08 Dose: 12.5 mg Montelukast Sodium (Singulair -) 10 mg PO HS [facility] Last Admin: 08/18/19 22:27 Dose: 10 mg Oxycodone HCl (Roxicodone -) 5 mg PO Q6H PRN PRN Reason: PAIN LEVEL 7-10 Last Admin: 08/18/19 09:26 Dose: 5 mg Pantoprazole Sodium (Protonix -) 20 mg PO DAILY [facility] Last Admin: 08/19/19 10:13 Dose: 20 mg Polyethylene Glycol (Miralax (For Daily Use) -) 17 gm PO DAILY [facility] Last Admin: 08/19/19 10:14 Dose: 17 grams - Objective Vital Signs: Vital Signs Temperature 98.3 F 08/19/19 14:09 Pulse Rate 88 08/19/19 14:09 Respiratory Rate 18 08/19/19 10:00 Blood Pressure 113/56 L 08/19/19 14:09 O2 Sat by Pulse Oximetry (%) 99 08/17/19 09:00 Constitutional: Yes: No Distress, Calm, Obese Eyes: Yes: EOM Intact HENT: Yes: Atraumatic Neck: Yes: Supple Cardiovascular: Yes: Regular Rate and Rhythm Respiratory: Yes: Wheezes, Other (diffuse wheezing. prolonged expiratory phase.) Gastrointestinal: Yes: Soft, Abdomen, Obese. No: Distention, Tenderness, Tenderness, Rebound Edema: No Neurological: Yes: Alert, Cran Nerves II-XII Intact, Other (lower extremity muscle strength about 3-4/5 and upper extremities 4/5) Psychiatric: Yes: Alert Labs: CBC, BMP 08/15/19 00:20 08/15/19 08:09 INR, PTT INR 1.13 (0.83-1.09) H 08/11/19 18:06 Impression/Plan Impression/Plan: This is a 78 y/o F with PMH of B/L DVTs, HTN, hyperlipidemia, TIA, vertigo, asthma, hypothyroidism who presented to the ED with falls, generalized weakness , and rectal bleeding. Rectal bleeding Outpatient follow up Neck/LUE pain, bilateral LE pain, generalized weakness Improving PT/OT Rehab discharge outpatient EMG/NCS neurosurgery follow up noted and appreciated Hx of bilateral DVT continue eliquis HTN controlled continue cozaar, HCTZ HLD lipitor hypothyroidism synthroid TSH WNL History of TIA/hx of dizziness meclizine PRN Asthma-wheezing -currently not in exacerbation continue symbicort and singulair Start duonebs standing and albuterol nebs PRN PPX DVT:elisunny pending auth for SNF wednesday Visit type - Emergency Visit Emergency Visit: Yes ED Registration Date: 08/11/19 Care time: The patient presented to the Emergency Department on the above date and was hospitalized for further evaluation of their emergent condition. - New Patient This patient is new to me today: Yes Date on this admission: 08/19/19 - Critical Care Critical Care patient: No
[2019-08-19] MEDS: ALBUTEROL SO4 2.5/IPRATROPIUM 0.5 INH SOL 3 ML VIAL.NEB. NEB SCH (21:15)
[2019-08-19] MEDS: MONTELUKAST NA 10 MG TABLET PO SCH (22:12)
[2019-08-19] MEDS: ATORVASTATIN CA 20 MG TABLET (FP) PO SCH (22:12)
[2019-08-20] MEDS: oxyCODONE HCL 5 MG TABLET PO PRN ×2 (00:54→21:35)
[2019-08-20] MEDS: ACETAMINOPHEN 325 MG TABLET (FP) PO PRN ×2 (00:55→21:33)
[2019-08-20] MEDS: ALBUTEROL SO4 2.5/IPRATROPIUM 0.5 INH SOL 3 ML VIAL.NEB. NEB SCH ×5 (03:55→20:13)
[2019-08-20] MEDS: BACLOFEN 10 MG TABLET (FP) PO SCH ×3 (06:06→21:36)
[2019-08-20] MEDS: LEVOTHYROXINE NA 25 MCG TABLET (FP) PO SCH (06:06)
--- NOTE | 2019-08-20 09:21 | PN ---
Progress Note (short form) - Note Progress Note: NEUROSURGERY Some R knee pain H/o DVT, HTN, HLD, TIA, asthma, hypothyroidism c/o a fall due to generalized weakness. H/o multiple falls in the past due to dizziness, but this fall was due to weakness. Fell in her son's house (in [place]) and hurt her L shoulder. LBP radiates to the top of back making it difficult to stand. States she fell due to weakness in her legs. L3 fx was from a fall a couple years ago, for which she was fitted with a TLSO. PE: Tmax 97.8, AF, VSS HEENT- NC/AT; Neck- supple; Cor- RR; Lungs- CTA B; Abd- benign; Ext- mild edema ; no other sign of DVT CN- non-focal; Motor- 4+ B UE and LE except L DF 4- and R DF and B PF 4/5; Sensation- decreased B distal LE vibration; DTR- hyporeflexic MRI C spine- C4-5, C5-6 disc protrusion with mild anterior cord impingement, L C5 root impingement; C5-6 mild anterior thecal sac impingement; no cord edema or myelomalacia MRI T spine- DDD T11-12, T12-L1 LS spine MRI- chronic L3 sup endplate fx; multilevel DDD, B lateral recess and foramenal narrowing with proximal root impingement Chronic lumbar DDD and cervical DDD Chronic L3 fx Neurosurgical intervention not indicated nor recommended given chronic findings and multiple medical risk factors Rehab/PT for safety, mobility and pain control Outpatient neurology and pain management f/u oysterman
[2019-08-20] MEDS ORDERED: PT OWN MED DRAWER 7, Y5N ONE ×2 (09:47→21:30)
[2019-08-20] MEDS: LOSARTAN POTASSIUM 50 MG TABLET (FP) PO SCH (09:53)
[2019-08-20] MEDS: levETIRAcetam 500 MG TABLET (FP) PO SCH ×2 (09:53→21:33)
[2019-08-20] MEDS: APIXABAN 2.5 MG TABLET PO SCH ×2 (09:53→21:36)
[2019-08-20] MEDS: FLUTICASONE PROP 0.05% 16 GM NASAL SPRAY NS SCH (09:54)
[2019-08-20] MEDS: POLYETHYLENE GLYCOL 3350 119 GM BTL PO SCH (09:54)
[2019-08-20] MEDS: PANTOPRAZOLE 20 MG TABLET (FP) PO SCH (09:54)
[2019-08-20] MEDS: BUDESONIDE/FORMETEROL FUMARATE 80/4.5 mcg INHALER IH SCH ×2 (09:54→21:36)
[2019-08-20] MEDS: HYDROCHLOROTHIAZIDE 25 MG TABLET (FP) PO SCH (09:55)
[2019-08-20] MEDS: DULoxetine HCL 20 MG CAPSULE.DR PO SCH ×2 (09:57→21:33)
--- NOTE | 2019-08-20 17:25 | PN ---
Progress Note, Physician History of Present Illness: Seen and examined at bedside. Still has neck back leg and shoulder pain but seems comfortable. was speaking on the phone and laughing when i walked in. She states icy hot and bengay improve her pain significantly. Denies nausea vomiting fever chills chest pain or SOB. - Current Medication List Current Medications: Active Medications Acetaminophen (Tylenol -) 650 mg PO Q6H PRN PRN Reason: PAIN LEVEL 4 - 6 Last Admin: 08/18/19 09:25 Dose: 650 mg Acetaminophen (Tylenol -) 325 mg PO BID PRN PRN Reason: PAIN 6-10 Last Admin: 08/20/19 00:55 Dose: 325 mg Acetaminophen (Tylenol -) 325 mg PO Q6H PRN PRN Reason: PAIN LEVEL 7 - 10 Last Admin: 08/18/19 00:38 Dose: 325 mg Albuterol Sulfate (Ventolin 0.083% Nebulizer Soln -) 1 amp NEB Q4H PRN PRN Reason: SHORT OF BREATH/WHEEZING Albuterol/Ipratropium (Duoneb -) 1 amp NEB RQID [facility] Last Admin: 08/20/19 16:05 Dose: 1 amp Apixaban (Eliquis -) 2.5 mg PO BID [facility] Last Admin: 08/20/19 09:53 Dose: 2.5 mg Atorvastatin Calcium (Lipitor -) 20 mg PO HS [facility] Last Admin: 08/19/19 22:12 Dose: 20 mg Baclofen (Lioresal -) 10 mg PO TID [facility] Last Admin: 08/20/19 15:06 Dose: 10 mg Budesonide/Formoterol Fumarate (Symbicort 80/4.5mcg -) 1 puff IH BID [facility] Last Admin: 08/20/19 09:54 Dose: 1 puff Duloxetine HCl (Cymbalta -) 20 mg PO BID [facility] Last Admin: 08/20/19 09:57 Dose: 20 mg Fluticasone Propionate (Flonase -) 1 spray NS DAILY [facility] Last Admin: 08/20/19 09:54 Dose: 1 spray Hydrochlorothiazide (Hctz -) 25 mg PO DAILY [facility] Last Admin: 08/20/19 09:55 Dose: 25 mg Levetiracetam (Keppra -) 750 mg PO BID [facility] Last Admin: 08/20/19 09:53 Dose: 750 mg Levothyroxine Sodium (Synthroid -) 25 mcg PO DAILY@0700 [facility] Last Admin: 08/20/19 06:06 Dose: 25 mcg Losartan Potassium (Cozaar -) 100 mg PO DAILY [facility] Last Admin: 08/20/19 09:53 Dose: 100 mg Meclizine HCl (Antivert -) 12.5 mg PO Q6H PRN PRN Reason: NAUSEA Last Admin: 08/13/19 09:08 Dose: 12.5 mg Montelukast Sodium (Singulair -) 10 mg PO HS [facility] Last Admin: 08/19/19 22:12 Dose: 10 mg Oxycodone HCl (Roxicodone -) 5 mg PO Q6H PRN PRN Reason: PAIN LEVEL 7-10 Last Admin: 08/20/19 00:54 Dose: 5 mg Pantoprazole Sodium (Protonix -) 20 mg PO DAILY [facility] Last Admin: 08/20/19 09:54 Dose: 20 mg Polyethylene Glycol (Miralax (For Daily Use) -) 17 gm PO DAILY [facility] Last Admin: 08/20/19 09:54 Dose: 17 grams - Objective Vital Signs: Vital Signs Temperature 97.8 F 08/20/19 08:01 Pulse Rate 86 08/20/19 08:01 Respiratory Rate 16 08/20/19 08:01 Blood Pressure 130/67 08/20/19 08:01 O2 Sat by Pulse Oximetry (%) 98 08/20/19 09:00 Constitutional: Yes: No Distress, Calm, Obese Eyes: Yes: EOM Intact HENT: Yes: Atraumatic Neck: Yes: Supple Cardiovascular: Yes: Regular Rate and Rhythm Respiratory: Yes: Wheezes, Other (Rhonchi and wheezing improved from yesterday. Able to speak in full sentences. no longer prolonged expiratory phase) Gastrointestinal: Yes: Soft, Abdomen, Obese. No: Distention, Tenderness, Tenderness, Rebound Edema: No Neurological: Yes: Alert, Cran Nerves II-XII Intact, Other (lower extremity muscle strength about 3-4/5 and upper extremities 4/5) Psychiatric: Yes: Alert Labs: CBC, BMP 08/15/19 00:20 08/15/19 08:09 INR, PTT INR 1.13 (0.83-1.09) H 08/11/19 18:06 Impression/Plan Impression/Plan: This is a 78 y/o F with PMH of B/L DVTs, HTN, hyperlipidemia, TIA, vertigo, asthma, hypothyroidism who presented to the ED with falls, generalized weakness , and rectal bleeding. Rectal bleeding Outpatient follow up Neck/LUE pain, bilateral LE pain, generalized weakness Improving PT/OT Rehab discharge outpatient EMG/NCS neurosurgery follow up noted and appreciated Continue icy hot and bengay which improve her pain significantly Oxycodone PRN Hx of bilateral DVT continue eliquis HTN controlled continue cozaar, HCTZ HLD lipitor hypothyroidism synthroid TSH WNL History of TIA/hx of dizziness meclizine PRN Asthma-wheezing -currently not in exacerbation continue symbicort and singulair wheezing and rhonchi significantly improves since starting duonebs standing and albuterol nebs PRN PPX DVT:eliquis pending auth for SNF tomorrow Visit type - Emergency Visit Emergency Visit: Yes ED Registration Date: 08/11/19 Care time: The patient presented to the Emergency Department on the above date and was hospitalized for further evaluation of their emergent condition. - New Patient This patient is new to me today: No - Critical Care Critical Care patient: No
[2019-08-20] MEDS: MONTELUKAST NA 10 MG TABLET PO SCH (21:33)
[2019-08-20] MEDS: ATORVASTATIN CA 20 MG TABLET (FP) PO SCH (21:35)
[2019-08-21 05:16] VITALS: PULSE 88
[2019-08-21] MEDS: BACLOFEN 10 MG TABLET (FP) PO SCH (06:10)
[2019-08-21] MEDS: LEVOTHYROXINE NA 25 MCG TABLET (FP) PO SCH (06:10)
[2019-08-21] MEDS: ALBUTEROL SO4 2.5/IPRATROPIUM 0.5 INH SOL 3 ML VIAL.NEB. NEB SCH ×2 (07:15→11:45)
[2019-08-21] MEDS ORDERED: PT OWN MED DRAWER 7, Y5N ONE (10:14)
[2019-08-21] MEDS: APIXABAN 2.5 MG TABLET PO SCH (10:16)
[2019-08-21] MEDS: LOSARTAN POTASSIUM 50 MG TABLET (FP) PO SCH (10:16)
[2019-08-21] MEDS: PANTOPRAZOLE 20 MG TABLET (FP) PO SCH (10:16)
[2019-08-21] MEDS: HYDROCHLOROTHIAZIDE 25 MG TABLET (FP) PO SCH (10:16)
[2019-08-21] MEDS: levETIRAcetam 500 MG TABLET (FP) PO SCH (10:16)
[2019-08-21] MEDS: DULoxetine HCL 20 MG CAPSULE.DR PO SCH (10:17)
[2019-08-21] MEDS: POLYETHYLENE GLYCOL 3350 119 GM BTL PO SCH (10:17)
[2019-08-21] MEDS: BUDESONIDE/FORMETEROL FUMARATE 80/4.5 mcg INHALER IH SCH (11:02)
[2019-08-21] MEDS: FLUTICASONE PROP 0.05% 16 GM NASAL SPRAY NS SCH (11:02)
[2019-08-21 11:27] VITALS: BP 107/60; TEMP 98.7
--- NOTE | 2019-08-21 11:40 | DS ---
Physical Exam: SUBJECTIVE: Patient seen and examined at bedside. Resting in bed. No complaint. OBJECTIVE: Vital Signs Period Temp Pulse Resp BP Sys/Sexton Pulse Ox Last 24 Hr 98.1 F-98.7 F 88-94 18-20 104-137/59-98 96 Physical Exam General: resting in bed. laughing, in NAD HEENT: NCAT, PERRLA neck: supple. cardio: s1, s2 rrr. no r/m/g pulm: cta b/l. no accessory m usage abdomen: obese, nontender, nondistended ext: 2+ pulses. no edema neuro: cns2-12 grossly intact. motor strength 3/5 LUE, +diffusely TTP, crepitus. 4/5 in LE. gait not assessed with difficulty sitting up , however improved from yesterday. has not been ambulatory today psych: +anxious Laboratory Tests 08/11/19 08/11/19 08/11/19 18:06 18:06 18:06 WBC 6.6 Hgb 12.3 Hct 38.7 Plt Count 238 PT with INR INR PTT (Actin FS) 37.4 H Sodium Potassium Chloride BUN Creatinine AST ALT Alkaline Phosphatase Creatine Kinase 40 Troponin I < 0.02 Vitamin B12 Serum Folate TSH Stool Occult Blood 08/11/19 08/11/19 08/11/19 18:06 18:06 20:44 WBC Hgb Hct Plt Count PT with INR 13.40 H INR 1.13 H PTT (Actin FS) Sodium 142 Potassium 4.6 Chloride 110 H BUN 23.8 H Creatinine 0.8 AST 13 L ALT 16 Alkaline Phosphatase 87 Creatine Kinase Troponin I Vitamin B12 Serum Folate TSH Stool Occult Blood Negative 08/12/19 08/16/19 08/17/19 08:48 10:18 06:00 WBC Hgb Hct Plt Count PT with INR INR PTT (Actin FS) Sodium Potassium Chloride BUN Creatinine AST ALT Alkaline Phosphatase Creatine Kinase Troponin I Vitamin B12 571 500 Serum Folate 28 H 20 H TSH 2.29 Stool Occult Blood Microbiology 08/11/19 18:20 Urine - Urine Clean Catch Urine Culture - Final NO GROWTH OBTAINED Imaging L hip XR: no acute pelvic or L hip pathology. arthritic spine changes, minimal hip arthritic changes, pelvic phleboliths, inguinal vascular calcifications. an acute process is not seen. calcification seen in soft tissues to the left of the L4 vertebral body. correlation recommended R hip XR: minimal arthritic changes, vascular calcifications L shoulder XR: no sign of fx or subluxation Head CT: no acute intracranial pathology. no definite interval change in comparison to past CT exam. mild unchanged chronic deformity of the medial wall of the right orbit consistent w/ a prior fracture. Lower extremity CT: no fx C-spine/T-spine/L-spine MRI: no compression fractures or subluxation. -C2-C3 mild L uncovertebral hypertrophy, probably impinging L C3 nerve root -C4-C5 mild to moderate disc bulge/herniation impinging anterior surface of cerv. cord -significant bilateral ligamentum hypertrophy present -moderate narrowing of neural foramina (L>R) impinging L C5 nerve root -C5-C6 mild degenerative disc dz -moderate narrowing of foramina likely impinging C6 nerve roots -tiny focus of myelomalacia in cervical cord inferior to C4-C5 intervertebral level -thoracic area: mild degen disc dz T11-T12, T12-L1, multilevel minimal disc bulge without cord or nerve root impingmenet -Schmorl node L1-L2 -impingement R L2 nerve root -L l3 nerve root impingement -moderate to marked bilateral facet hypertrophy L4-L5 -right renal exophytic cyst seen HOSPITAL COURSE: Date of Admission:08/11/19 Date of Discharge: 08/21/19 78 y/o F with PMH of B/L DVTs, HTN, hyperlipidemia, TIA, vertigo, asthma, hypothyroidism who presented to the ED with falls, generalized weakness, and rectal bleeding. While pt was in the hospital, she was managed for the following: #Rectal bleeding -FOBT (-) -H/H stable -pt was restarted on eliquis, as no more episodes of bleeding noted -on protonix -seen by GI, can have colonoscopy done outpt #Neck/LUE pain, bilateral LE pain, generalized weakness possible 2/2 ?subacute myelopathy -c/w PT; weakness, imbalance -d/w neuro results of MRI: mod canal stenosis, node L3, impingement L2 nerve root started on cymbalta 20mg BID, percocet, baclofen - to continue on discharge -on miralax bowel regimen -seen by neurosx; no acute intervention needed -outpatient CS injection, when off eliquis. coordinated by pain mgmt, Dr. Hylton -TSH, B12, folate levels WNL #Hx of DVT -pt was continued on eliquis #HTN- controlled -c/w cozaar, HCTZ #HLD -c/w lipitor #hypothyroidism -c/w synthroid -f/u TSH #History of TIA #hx dizziness -c/w meclizine PRN #Asthma -currently not in exacerbation -c/w symbicort, singulair, nebs PRN Minutes to complete discharge: 44 Discharge Summary Problems reviewed: Yes Reason For Visit: RECURRENT FALL/WEAKNESS/UNABLE TO TALK Current Active Problems Fall in elderly patient (Acute) Heart murmur (Acute) Shoulder pain, left (Acute) Weakness of both legs (Acute) Condition: Improved - Instructions Diet, Activity, Other Instructions: You were in the hospital because you had severe back pain and leg weakness. You were found to have impinged spinal nerves and degenerative disc disease. You are being sent to a facility where you can do physical therapy and become stronger. Medications Please continue with the following pain medications you were given in the hospital: -cymbalta 20mg twice a day -percocet - 1 pill every six hours only as needed -baclofen - 10 mg (1 pill) three times a day You should also continue with miralax daily, since these medications can make you feel constipated. You may continue your other medications. Procedures -You will need to have corticosteroid shots in your back as an outpatient. However you are on a blood thinner. So you will have to talk to Dr. Hylton (pain management) about this. -You may also need to have an EMG done. Follow up: -You will need to follow up with the following doctors: -A primary care doctor - 3-5 days after your visit to discuss. We have referred you to Dr. Yoder. -Dr. Buster Hylton, pain management doctor - 1 week to talk about the corticosteroid shot for your back pain Referrals: Geovany Yoder MD [Staff Physician] - 08/24/19 Buster Hylton MD [Staff Physician] - 1 Week Disposition: SNF FACILITY - Home Medications Comprehensive Discharge Medication List: Ambulatory Orders Fluticasone Prop 0.05% Nasal [Flonase -] 1 - 2 spray NS BID 04/15/17 Levothyroxine [Synthroid -] 25 mcg PO DAILY 04/15/17 Losartan/Hydrochlorothiazide [Losartan-Hctz 100-25 mg Tab] 1 each PO DAILY 04/15 Montelukast Na [Singulair -] 10 mg PO HS 04/15/17 Pantoprazole Sodium [Protonix -] 40 mg PO DAILY 04/15/17 Salmeterol/Fluticasone [Advair 250Mcg/50Mcg -] 1 inh PO BID 05/02/17 Simvastatin 40 mg PO HS 06/13/17 Apixaban [Eliquis] 2.5 mg PO BID 06/11/19 Linaclotide [Linzess] 290 mcg PO DAILY 08/12/19 levETIRAcetam [Keppra -] 750 mg PO BID 08/12/19 Benzonatate 200 mg PO BID 08/13/19 Meclizine HCl [Antivert -] 25 mg PO BID PRN 08/13/19 Albuterol 0.083% Nebulizer Prabha [Ventolin 0.083% Nebulizer Soln -] 1 amp NEB Q4H PRN amp 08/21/19 Albuterol 2.5/Ipratropium 0.5 [Duoneb -] 1 amp NEB RQID amp 08/21/19 Baclofen [Lioresal -] 10 mg PO TID tablet 08/21/19 Duloxetine HCl [Cymbalta -] 20 mg PO BID capsule. 08/21/19 Polyethylene Glycol 3350 [Miralax 119 gm Btl -] 17 gm PO DAILY bottle 08/21/19 oxyCODONE HCL [Roxicodone -] 5 mg PO Q6H PRN tablet MDD 20mg 08/21/19 This patient is new to me today: No Emergency Visit: No Critical Care patient: No - Discharge Referral Referred to [facility] Med P.C.: No
== END 2019-08-21 13:49 | DRG 552 ==
LOC: JER 16:22 → JERBED 20:22 → J6S 08-12 03:12
PROVIDERS: ADMIT Internal Medicine; ATTEND Internal Medicine
DX: M50.90 Cervical disc disorder, unspecified, unspecified cervical region (principal); K62.5 Hemorrhage of anus and rectum; M84.48XA Pathological fracture, other site, initial encounter for fracture; T45.515A Adverse effect of anticoagulants, initial encounter; M25.512 Pain in left shoulder; M48.062 Spinal stenosis, lumbar region with neurogenic claudication; R42 Dizziness and giddiness; I10 Essential (primary) hypertension; E11.9 Type 2 diabetes mellitus without complications; E03.9 Hypothyroidism, unspecified; E78.5 Hyperlipidemia, unspecified; J45.909 Unspecified asthma, uncomplicated; K29.70 Gastritis, unspecified, without bleeding; R01.1 Cardiac murmur, unspecified; M51.36 Other intervertebral disc degeneration, lumbar region; N28.1 Cyst of kidney, acquired; W19.XXXA Unspecified fall, initial encounter; E66.9 Obesity, unspecified; Z68.29 Body mass index [BMI] 29.0-29.9, adult; Z86.718 Personal history of other venous thrombosis and embolism; Z86.73 Personal history of transient ischemic attack (TIA), and cerebral infarction without residual deficits
CPT/HCPCS: 36415; 70450-TC; 71045-TC-FY; 72141-TC; 72146-TC; 72148-TC; 73030-TC-LT-FY; 73523-TC-FY; 73700-TC-RT; 80048; 80053; 81003; 82272; 82550; 82607; 82746; 82962; 84443; 84484; 85025; 85027; 85610; 85730; 87086; 93005; 93010; 94640; 97116-GP; 97161-GP; 99283-25; J0475

== ENCOUNTER 2019-10-21 08:16 | Emergency (ER) | payer OTHER ==
[2019-10-21 08:28] VITALS: BMI 28.6
[2019-10-21] MEDS ORDERED: ALBUTEROL SO4 2.5/IPRATROPIUM 0.5 INH SOL 3 ML VIAL.NEB. NEB ONE ×2 (08:45→08:47)
[2019-10-21] MEDS ORDERED: predniSONE 20 MG TABLET (UD) PO ONE (08:45)
[2019-10-21] MEDS ORDERED: predniSONE 20 MG TABLET (UD) ONE (08:47)
--- NOTE | 2019-10-21 08:47 | PDOC ---
History of Present Illness - General Chief Complaint: Wheezing Stated Complaint: COUGH / CONGESTION Time Seen by Provider: 10/21/19 08:38 History Source: Patient, Family (Daughter at bedside), Pt declined [employer] ( Requested her daughter provide Upper Sorbian Interpretation.) Exam Limitations: Language Barrier - History of Present Illness Initial Comments: HPI: 78 y/o female presenting to [facility] ER complaining of coughing, wheezing, and shortness of breath that has worsened over the past four days. Cough has been productive for greenish sputum. Denies fevers, chills, or chest pain. Has been using her albuterol inhaler without relief. No sick contacts. Last evaluated in the emergency department for asthma symptoms in December of last year. Visiting from [place]. Does not have her prescribed Advair or Symbicort. Expected to return home until she got sick. Medical Hx: DVT (on eliquis), HTN, HLD, TIA, vertigo, asthma, hypothyroidism Review of Systems: 10 point review of systems completed. All systems negative except as noted above. Physical Examination: Vital signs and nursing notes reviewed. Constitutional- Nontoxic adult female in no acute distress or obvious discomfort. Found semi-fowlers on hospital bed. Head- Normocephalic. No obvious external signs of trauma. Neck- Supple, trachea is midline. Cardiovascular / Chest- Regular rate and regular rhythm. No murmur, rubs, clicks , or gallops. Peripheral pulses- radial pulses full. Respiratory- Breathing unlabored, but frequent coughing. Able to speak in multi- word responses without pausing. Equal chest rise and fall. Diffuse expiratory wheezing. No focal consolidation, rales, or rhonchi. Gastrointestinal- abdomen is soft, non-tender, non-distended. Neuro- Alert and oriented x4. Moving all four extremities spontaneously. Skin- Warm, dry, and intact. Psych- Affect- appropriate. Mood- normal. Speech was non-labored, non- pressured. MDM: 78 y/o female presenting with four days of productive cough and wheezing. Has not been using all prescribed asthma medications. Afebrile. Vitals unremarkable for hypotension or tachycardia. Physical exam as described above. Normox on room air. CXR unremarkable for acute cardiopulmonary process. Give DuoNebs, Prednisone, and Azithromycin. Suspect likely acute bronchitis with overlying mild asthma exacerbation. Pt reasessed. Reports feeling better. Wheezing has improved. Continues to speak in rapid and full responses without pausing for breath. Discussed physical exam findings, laboratory results, and xrays findings with pt and her daughter. Answered all questions. Provided return precautions. pt expressed verbal understanding and agreement with plan to discharge home with outpatient follow up. Provided copies of todays results. Prescribed refills of Advair and Symbicort. States she has enough albuterol at home. Prescribed Azithromycin and Prednisone for further symptom relief. Joseph Queen M.D., PGY2 Emergency Medicine Resident Past History - Past Medical History Allergies/Adverse Reactions: Allergies Allergy/AdvReac Type Severity Reaction Status Date / Time Penicillins Allergy Swelling Verified 08/11/19 16:40 Home Medications: Ambulatory Orders Fluticasone Prop 0.05% Nasal [Flonase -] 1 - 2 spray NS BID 04/15/17 Levothyroxine [Synthroid -] 25 mcg PO DAILY 04/15/17 Losartan/Hydrochlorothiazide [Losartan-Hctz 100-25 mg Tab] 1 each PO DAILY 04/15 Pantoprazole Sodium [Protonix -] 40 mg PO DAILY 04/15/17 Salmeterol/Fluticasone [Advair 250Mcg/50Mcg -] 1 inh PO BID 05/02/17 Simvastatin 40 mg PO HS 06/13/17 Apixaban [Eliquis] 2.5 mg PO BID 06/11/19 Linaclotide [Linzess] 290 mcg PO DAILY 08/12/19 levETIRAcetam [Keppra -] 750 mg PO BID 08/12/19 Benzonatate 200 mg PO BID 08/13/19 Meclizine HCl [Antivert -] 25 mg PO BID PRN 08/13/19 Albuterol 0.083% Nebulizer Prabha [Ventolin 0.083% Nebulizer Soln -] 1 amp NEB Q4H PRN amp 08/21/19 Albuterol 2.5/Ipratropium 0.5 [Duoneb -] 1 amp NEB RQID amp 08/21/19 Baclofen [Lioresal -] 10 mg PO TID tablet 08/21/19 Duloxetine HCl [Cymbalta -] 20 mg PO BID capsule. 08/21/19 Polyethylene Glycol 3350 [Miralax 119 gm Btl -] 17 gm PO DAILY bottle 08/21/19 oxyCODONE HCL [Roxicodone -] 5 mg PO Q6H PRN tablet MDD 20mg 08/21/19 Azithromycin [Zithromax 250mg Tablets -] 250 mg PO UTDICT #6 tab 10/21/19 Fluticasone/Salmeterol [Advair 250-50 Diskus] 1 each IH BID #1 blst.w.dev Montelukast Na [Singulair -] 10 mg PO HS #1 tablet 10/21/19 Prednisone [Prednisone 50 MG TABLETS] 50 mg PO DAILY #4 tablet 10/21/19 Anemia: No Asthma: Yes Cancer: No Cardiac Disorders: Yes (AORTIC STENOSIS) CVA: Yes (tia) COPD: No CHF: No DVT: No Dementia: No Diabetes: Yes GI Disorders: Yes (ULCER, HERNIA) Disorders: No HTN: Yes Hypercholesterolemia: Yes Liver Disease: No Seizures: Yes Thyroid Disease: Yes - Surgical History Abdominal Surgery: No Appendectomy: No Cardiac Surgery: No Cholecystectomy: No Lung Surgery: No Neurologic Surgery: No Orthopedic Surgery: No - Immunization History Immunization Up to Date: Yes - Psycho Social/Smoking Cessation Hx Smoking Status: No Smoking History: Never smoked Have you smoked in the past 12 months: No Number of Cigarettes Smoked Daily: 0 Information on smoking cessation initiated: No Hx Alcohol Use: No Drug/Substance Use Hx: No Substance Use Type: None Hx Substance Use Treatment: No *Physical Exam - Vital Signs Last Vital Signs Temp Pulse Resp BP Pulse Ox 97.9 F 97 H 16 117/50 L 99 10/21/19 08:20 10/21/19 08:20 10/21/19 08:20 10/21/19 08:20 10/21/19 08:20 ED Treatment Course - RADIOLOGY Radiology Studies Ordered: Category Date Time Status CHEST PA & LAT [RAD] Stat Radiology 10/21/19 08:46 Ordered Discharge - Discharge Information Problems reviewed: Yes Clinical Impression/Diagnosis: Cough, Wheezing, Acute exacerbation of mild persistent extrinsic asthma Acute bronchitis Qualifiers: Bronchitis organism: unspecified organism Qualified Code(s): J20.9 - Acute bronchitis, unspecified Condition: Improved Disposition: HOME - Admission No - Additional Discharge Information Prescriptions: Azithromycin [Zithromax 250mg Tablets -] 250 mg PO UTDICT #6 tab Fluticasone/Salmeterol [Advair 250-50 Diskus] 1 each IH BID #1 blst.w.dev Montelukast Na [Singulair -] 10 mg PO HS #1 tablet Prednisone [Prednisone 50 MG TABLETS] 50 mg PO DAILY #4 tablet - Follow up/Referral Referrals: [facility] [place] [Provider Group] - Patient Discharge Instructions Patient Printed Discharge Instructions: DI for Asthma -- Adult, DI for Acute Bronchitis Additional Instructions: You were seen today for coughing and wheezing. Your chest xray did not show signs of a pneumonia. You may be an acute bronchitis and an asthma exacerbation. I have sent four prescriptions to your pharmacy. Take them as directed on the package inserts. Do not exceed the recommended dosages. I have entered a referral for you to see a primary care physician at [facility] primary care clinic. You will need to call to make an appointment in the next 3-2 days. The telephone number is [phone]. The address is- [facility] [place] [place] [address] Go to the nearest emergency department if your condition worsens or you feel like you need additional emergency evaluation. Print Language: CENTRAL AFRICAN - Post Discharge Activity
[2019-10-21] MEDS ORDERED: AZITHROMYCIN 250 MG TABLET PO ONE (10:55)
[2019-10-21] MEDS ORDERED: AZITHROMYCIN 500 MG TABLET ONE (11:08)
--- NOTE | 2019-10-21 11:36 | PDOC ---
Documentation entered by Jase Hendrix SCRIBE, acting as scribe for Lorna Orozco MD. Lorna Orozco MD: This documentation has been prepared by the Simeon stallings Nirvannie, SCRIBE, under my direction and personally reviewed by me in its entirety. I confirm that the documentation accurately reflects all work, treatment, procedures, and medical decision making performed by me. Attending Attestation - Resident Resident Name: Joseph Queen - ED Attending Attestation I have performed the following: I have examined & evaluated the patient, The case was reviewed & discussed with the resident, I agree w/resident's findings & plan, Exceptions are as noted - HPI HPI: 10/21/19 10:06 The patient is a 78 year old female, with a significant past medical history of asthma (no hx of intubations), prior DVTs (Eliquis), DM, and TIA, who presents to the emergency department with 5 days of productive cough, wheezing, nasal congestion. She denies any hemoptysis. She denies any recent chest pain or shortness of breath. She denies any recent fevers, chills, headache or dizziness. She denies any recent nausea, vomiting, diarrhea or constipation. She denies any recent dysuria, frequency, urgency or hematuria. Allergies: Penicillin. Primary Care Physician: Dr. Alonzo - Physicial Exam PE: GENERAL: Awake, alert, and fully oriented, in no acute distress HEAD: No signs of trauma EYES: PERRLA, EOMI, sclera anicteric, conjunctiva clear ENT: Auricles normal inspection, hearing grossly normal, nares patent, oropharynx clear without exudates. Moist mucosa NECK: Normal ROM, supple, no lymphadenopathy, JVD, or masses LUNGS: Dec air entry B/L with scattered exp wheezes. +Prolonged exp phase. Speaking full sentences. HEART: Regular rate and rhythm, normal S1 and S2, no murmurs, rubs or gallops ABDOMEN: Soft, nontender, normoactive bowel sounds. No guarding, no rebound. No masses EXTREMITIES: Normal range of motion, no edema. No clubbing or cyanosis. No cords, erythema, or tenderness NEUROLOGICAL: Cranial nerves II through XII grossly intact. Normal speech. Motor and sensation intact SKIN: Warm, dry, normal turgor, no rashes or lesions noted. - Medical Decision Making Pt with asthma exacerbation with hacking cough. Given steroids, nebs in ED. Will give azithro for bronchitis given the character of the cough (as well as history of inhaled steroids, severe asthma, as patient is higher risk for bacterial infections). Will DC home if she improves.
[2019-10-21 12:52] VITALS: BP 118/68; PULSE 88; TEMP 98.5
== END 2019-10-21 12:52 | disposition home or self-care (01) ==
LOC: JER 08:16
PROC: 3E0F7GC Introduction of Other Therapeutic Substance into Respiratory Tract, Via Natural or Artificial Opening (ICD-10-PCS; principal; 2019-10-21)
DX: J45.31 Mild persistent asthma with (acute) exacerbation (principal); J20.9 Acute bronchitis, unspecified; I10 Essential (primary) hypertension; E78.5 Hyperlipidemia, unspecified; E03.9 Hypothyroidism, unspecified; Z86.718 Personal history of other venous thrombosis and embolism; Z79.01 Long term (current) use of anticoagulants; Z86.73 Personal history of transient ischemic attack (TIA), and cerebral infarction without residual deficits; Z88.0 Allergy status to penicillin
CPT/HCPCS: 71046-TC-FY; 94640; 99281-25

== ENCOUNTER 2019-11-29 08:14 | Emergency (ER) | payer BC, OTHER ==
[2019-11-29 08:25] VITALS: BMI 31.7
[2019-11-29] MEDS ORDERED: ALBUTEROL SO4 2.5/IPRATROPIUM 0.5 INH SOL 3 ML VIAL.NEB. NEB ONE ×2 (09:01→09:06)
[2019-11-29] MEDS ORDERED: predniSONE 20 MG TABLET (UD) PO ONE (09:01)
[2019-11-29] MEDS ORDERED: predniSONE 20 MG TABLET (UD) ONE (09:06)
[2019-11-29 09:48] LABS: BASO % 0.8 % (0-2.0); EOS % 3.3 % (0-4.5); HEMATOCRIT 37.7 % (32.4-45.2); HEMOGLOBIN 12.5 GM/dL (10.7-15.3); LYMPH % 19.5 % (8-40); MCH 27.9 pg (25.7-33.7); MCHC 33.1 g/dl (32.0-36.0); MEAN CELL VOLUME 84.4 fl (80-96); MEAN PLT VOLUME 9.4 fl (7.5-11.1); MONO % 8.8 % (3.8-10.2); NEUT % 67.6 % (42.8-82.8); PLATELET COUNT 295 K/MM3 (134-434); RBC 4.46 M/mm3 (3.60-5.2); RDW 16.6 % (11.6-15.6); WHITE BLOOD COUNT 7.9 K/mm3 (4.0-10.0)
[2019-11-29] MEDS ORDERED: ALBUTEROL SO4 0.083% IH SOL 2.5 MG/3 ML VIAL.NEB. NEB ONE ×2 (11:15→11:18)
[2019-11-29 11:59] LABS: ALBUMIN 3.4 g/dl (3.4-5.0); BILIRUBIN,TOTAL 0.5 mg/dL (0.2-1); BLOOD UREA NITROGEN 12.7 mg/dL (7-18); CALCIUM 9.2 mg/dL (8.5-10.1); CREATININE 0.8 mg/dL (0.55-1.3); POTASSIUM 4.3 mmol/L (3.5-5.1); TOT PROT 6.2 g/dl (6.4-8.2)
[2019-11-29] MEDS ORDERED: AZITHROMYCIN 250 MG TABLET PO ONE (13:06)
[2019-11-29] MEDS ORDERED: AZITHROMYCIN 250 MG TABLET ONE (13:13)
[2019-11-29 13:26] VITALS: BP 144/88; PULSE 95; TEMP 98
--- NOTE | 2019-11-29 13:34 | PDOC ---
Documentation entered by Jacquie Lebron SCRIBE, acting as scribe for Samuel Rizo MD. Samuel Rizo MD: This documentation has been prepared by the Bernardino stallings Adrianna, SCRIBE, under my direction and personally reviewed by me in its entirety. I confirm that the documentation accurately reflects all work, treatment, procedures, and medical decision making performed by me. History of Present Illness - General Chief Complaint: Shortness of Breath Stated Complaint: COUGHING/JESSICA Time Seen by Provider: 11/29/19 08:47 - History of Present Illness Initial Comments: The patient is an 79 year old female, with a significant PMH of DVT (on eliquis) , HTN, HLD, TIA, vertigo, asthma, IBS, OA, and hypothyroidism, who presents to the ED for evaluation of cough and congestion for one week. Patient complains of a progressively worsening cough, that is productive of yellow phlegm. She notes she has been coughing so hard that it makes her dizzy and have a headache. Patient reports feeling congested, and endorses pain under the left ear into the left jaw. Daughter at beside notes recently the patient sounds like she is breathing through a straw underwater. Patient endorses some intermittent left sided abdominal pain. She was seen by her PCP last week for a regular follow up, with no acute findings at that time. Off note, patient had diarrhea with some blood for 4 days over a week ago, which was alleviated with immodium (patient no longer has diarrhea or blood in stool). She additionally complains of unrelated right knee pain, secondary to her OA. No fever, chills. Allergies: Penicillin Surgical History: None reported Social History: No toxic habits Primary Care Physician: Dr. Alonzo Past History - Past Medical History Allergies/Adverse Reactions: Allergies Allergy/AdvReac Type Severity Reaction Status Date / Time Penicillins Allergy Swelling Verified 11/29/19 08:57 Home Medications: Ambulatory Orders Fluticasone Prop 0.05% Nasal [Flonase -] 1 - 2 spray NS BID 04/15/17 Levothyroxine [Synthroid -] 25 mcg PO DAILY 04/15/17 Losartan/Hydrochlorothiazide [Losartan-Hctz 100-25 mg Tab] 1 each PO DAILY 04/15 Pantoprazole Sodium [Protonix -] 40 mg PO DAILY 04/15/17 Salmeterol/Fluticasone [Advair 250Mcg/50Mcg -] 1 inh PO BID 05/02/17 Simvastatin 40 mg PO HS 06/13/17 Apixaban [Eliquis] 2.5 mg PO BID 06/11/19 Linaclotide [Linzess] 290 mcg PO DAILY 08/12/19 levETIRAcetam [Keppra -] 750 mg PO BID 08/12/19 Benzonatate 200 mg PO BID 08/13/19 Meclizine HCl [Antivert -] 25 mg PO BID PRN 08/13/19 Albuterol 0.083% Nebulizer Prabha [Ventolin 0.083% Nebulizer Soln -] 1 amp NEB Q4H PRN amp 08/21/19 Albuterol 2.5/Ipratropium 0.5 [Duoneb -] 1 amp NEB RQID amp 08/21/19 Fluticasone/Salmeterol [Advair 250-50 Diskus] 1 each IH BID #1 blst.w.dev Montelukast Na [Singulair -] 10 mg PO HS #1 tablet 10/21/19 Anemia: No Asthma: Yes Cancer: No Cardiac Disorders: Yes (AORTIC STENOSIS) CVA: Yes (tia) COPD: No CHF: No DVT: No Dementia: No Diabetes: Yes GI Disorders: Yes (ULCER, HERNIA) Disorders: No HTN: Yes Hypercholesterolemia: Yes Liver Disease: No Seizures: Yes Thyroid Disease: Yes - Surgical History Abdominal Surgery: No Appendectomy: No Cardiac Surgery: No Cholecystectomy: No Lung Surgery: No Neurologic Surgery: No Orthopedic Surgery: No - Immunization History Immunization Up to Date: Yes - Psycho Social/Smoking Cessation Hx Smoking Status: No Smoking History: Never smoked Have you smoked in the past 12 months: No Number of Cigarettes Smoked Daily: 0 Information on smoking cessation initiated: No Hx Alcohol Use: No Drug/Substance Use Hx: No Substance Use Type: None Hx Substance Use Treatment: No Respiratory Specific PMHX - Complaint Specific PMHX Hx Bronchitis: Yes Review of Systems - Review of Systems Comments:: CONSTITUTIONAL: No fever, no chills, no fatigue EYES: No visual changes ENT: +Congestion with pain under left ear into jaw. No sore throat CARDIOVASCULAR: No chest pain, no palpitations RESPIRATORY: +Cough productive of yellow phlegm. +Sounds like she is breathing through a straw underwater. No SOB GI: +Intermittent left-sided abdominal pain. No nausea, no vomiting, no constipation, no diarrhea GENITOURINARY: No dysuria, no frequency, no hematuria MUSKULOSKELETAL: +Right knee pain (2/2 OA). No back pain, no myalgias SKIN: No rash NEURO:+Dizziness (2/2 hard coughing). +ROLLINS (2/2 hard coughing). *Physical Exam - Vital Signs Last Vital Signs Temp Pulse Resp BP Pulse Ox 98.2 F 87 22 H 136/59 L 96 11/29/19 08:20 11/29/19 08:20 11/29/19 08:20 11/29/19 08:20 11/29/19 08:20 - Physical Exam CONSTITUTIONAL: Well-appearing; well-nourished; in no apparent distress HEAD: Normocephalic; atraumatic EYES: PERRL; EOM intact ENMT: +Dry mucous membranes. External appears normal; normal oropharynx NECK: Supple; non-tender; no cervical lymphadenopathy CARD: +2/6 systolic ejection murmur. No rubs, or gallops RESP: +Tachypneic. +Decreased air entry bilaterally. +End respiratory wheezing in all lung guerrero. Normal chest excursion with respiration. ABD: Soft, non-distended; non-tender; no palpable organomegaly, no palpable hernias EXT: Normal ROM in all four extremities; non-tender to palpation; distal pulses intact SKIN: Warm, dry, no rash NEURO: No focal neurological deficiencies. ED Treatment Course - LABORATORY CBC & Chemistry Diagram: 11/29/19 09:15 11/29/19 11:20 - ADDITIONAL ORDERS Additional order review: Laboratory Results 11/29/19 11/29/19 11:20 09:15 Sodium 141 Cancelled Potassium 4.3 Cancelled Chloride 106 Cancelled Carbon Dioxide 29 Cancelled Anion Gap 7 L Cancelled BUN 12.7 Cancelled Creatinine 0.8 Cancelled Est GFR (CKD-EPI)AfAm 80.70 Cancelled Est GFR (CKD-EPI)NonAf 69.63 Cancelled Random Glucose 185 H Cancelled Calcium 9.2 Cancelled Total Bilirubin 0.5 Cancelled AST 18 Cancelled ALT 16 Cancelled Alkaline Phosphatase 91 Cancelled Total Protein 6.2 L Cancelled Albumin 3.4 Cancelled 11/29/19 09:15 RBC 4.46 MCV 84.4 MCHC 33.1 RDW 16.6 H MPV 9.4 D Neutrophils % 67.6 D Lymphocytes % 19.5 D Monocytes % 8.8 Eosinophils % 3.3 Basophils % 0.8 - RADIOLOGY Radiology Studies Ordered: Category Date Time Status CHEST PA & LAT [RAD] Stat Radiology 11/29/19 09:00 Completed - Medications Given in the ED: ED Medications Discontinued Medications Generic Name Dose Route Start Last Admin Trade Name Yahaira PRN Reason Stop Dose Admin Albuterol Sulfate 1 amp 11/29/19 11:18 11/29/19 11:37 Ventolin 0.083% Nebulizer Soln - NEB 11/29/19 11:19 1 amp ONCE ONE Administration Albuterol/Ipratropium 3 amp 11/29/19 09:01 11/29/19 09:11 Duoneb - NEB 11/29/19 09:02 3 amp ONCE ONE Administration Azithromycin 500 mg 11/29/19 13:06 11/29/19 13:14 Zithromax - PO 11/29/19 13:07 500 mg ONCE ONE Administration Prednisone 40 mg 11/29/19 09:01 11/29/19 09:11 Deltasone - PO 11/29/19 09:02 40 mg ONCE ONE Administration Medical Decision Making - Medical Decision Making 11/29/19 13:29 Patient is an 79-year-old female with multiple comorbidities, history of asthma (no intubations), no recent treatment with steroids, presents to the ER with signs and symptoms of acute asthma exacerbation. In the ER, patient noted to be afebrile, nontoxic-appearing, initially tachypneic and dyspneic with decreased air entry and diffuse and expiratory wheezing in all lung guerrero. Chest X revealed no evidence of infiltrate or effusion. CBC and CMP revealed no significant abnormalities. Patient received Combivent therapy, followed by albuterol, prednisone orally with significant improvement in the level of her symptoms. Upon reassessment, patient is awake and alert, speaking full sentences, respiratory rate is noted to be 16-20, oxygen saturation of 96% room air. Increased air entry is noted bilaterally; intermittent mild end expiratory wheezing is identified at the bases. I discussed the plan of care with the patient and her daughter and offered them admission but they wish outpatient therapy at this time and will return if the patient's symptoms worsen. Will discharge with albuterol MDI, prednisone and Zithromax. Discharge - Discharge Information Problems reviewed: Yes Clinical Impression/Diagnosis: Acute exacerbation of mild persistent extrinsic asthma Acute bronchitis Qualifiers: Bronchitis organism: unspecified organism Qualified Code(s): J20.9 - Acute bronchitis, unspecified Condition: Stable Disposition: HOME - Follow up/Referral Referrals: Feli Alonzo MD [Primary Care Provider] - - Patient Discharge Instructions Patient Printed Discharge Instructions: DI for Asthma -- Adult, DI for Acute Bronchitis Print Language: PORTUGUESE - Post Discharge Activity
== END 2019-11-29 13:44 | disposition home or self-care (01) ==
LOC: JER 08:14
PROC: 3E0F7GC Introduction of Other Therapeutic Substance into Respiratory Tract, Via Natural or Artificial Opening (ICD-10-PCS; principal; 2019-11-29)
DX: J20.9 Acute bronchitis, unspecified (principal); Z88.0 Allergy status to penicillin; J45.909 Unspecified asthma, uncomplicated; Z86.73 Personal history of transient ischemic attack (TIA), and cerebral infarction without residual deficits; I35.0 Nonrheumatic aortic (valve) stenosis; I10 Essential (primary) hypertension; R56.9 Unspecified convulsions; E07.9 Disorder of thyroid, unspecified
CPT/HCPCS: 36415; 71046-TC-FY; 80053; 85025; 87040; 94640; 99284-25

== ENCOUNTER 2019-12-03 11:43 | Inpatient (IN) | payer OTHER ==
[2019-12-03] MEDS ORDERED: ALBUTEROL SO4 2.5/IPRATROPIUM 0.5 INH SOL 3 ML VIAL.NEB. NEB ONE ×3 (12:30→20:47)
--- NOTE | 2019-12-03 12:34 | PDOC ---
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 Pt was seen on 11/28 in this ED for cough, offered admission but decided on going home, dc'd with azithromycin, prednisone, and albuterol w/ PCP f/u 12/03. Pt states cough becoming more productive and since dc from ED has noticed increased baseline SOB and occasional chest tightness lasting 10-15 minutes with random onset. Pt has not been eating or drinking well. States she is vertiginous with heaviness of the legs. Had an unwitnessed fall while walking to walker last PM. Allergy - PCN PCP - Cheri Past History - Past Medical History Allergies/Adverse Reactions: Allergies Allergy/AdvReac Type Severity Reaction Status Date / Time Penicillins Allergy Swelling Verified 12/03/19 11:48 Home Medications: Ambulatory Orders Fluticasone Prop 0.05% Nasal [Flonase -] 1 - 2 spray NS BID 04/15/17 Levothyroxine [Synthroid -] 25 mcg PO DAILY 04/15/17 Losartan/Hydrochlorothiazide [Losartan-Hctz 100-25 mg Tab] 1 each PO DAILY 04/15/17 Pantoprazole Sodium [Protonix -] 40 mg PO DAILY 04/15/17 Salmeterol/Fluticasone [Advair 250Mcg/50Mcg -] 1 inh PO BID 05/02/17 Simvastatin 40 mg PO HS 06/13/17 Apixaban [Eliquis] 2.5 mg PO BID 06/11/19 Linaclotide [Linzess] 290 mcg PO DAILY 08/12/19 levETIRAcetam [Keppra -] 750 mg PO BID 08/12/19 Benzonatate 200 mg PO BID 08/13/19 Meclizine HCl [Antivert -] 25 mg PO BID PRN 08/13/19 Albuterol 0.083% Nebulizer Prabha [Ventolin 0.083% Nebulizer Soln -] 1 amp NEB Q4H PRN amp 08/21/19 Albuterol 2.5/Ipratropium 0.5 [Duoneb -] 1 amp NEB RQID amp 08/21/19 Fluticasone/Salmeterol [Advair 250-50 Diskus] 1 each IH BID #1 blst.w.dev 10/21/19 Montelukast Na [Singulair -] 10 mg PO HS #1 tablet 10/21/19 Azithromycin 250 mg PO DAILY #4 tablet 11/29/19 predniSONE [Deltasone -] 40 mg PO DAILY #10 tablet 11/29/19 Anemia: No Asthma: Yes Cancer: No Cardiac Disorders: Yes (AORTIC STENOSIS) CVA: Yes (tia) COPD: No CHF: No DVT: No Dementia: No Diabetes: Yes GI Disorders: Yes (ULCER, HERNIA) Disorders: No HTN: Yes Hypercholesterolemia: Yes Liver Disease: No Seizures: Yes Thyroid Disease: Yes - Surgical History Abdominal Surgery: No Appendectomy: No Cardiac Surgery: No Cholecystectomy: No Lung Surgery: No Neurologic Surgery: No Orthopedic Surgery: No - Immunization History Immunization Up to Date: Yes - Psycho Social/Smoking Cessation Hx Smoking Status: No Smoking History: Never smoked Have you smoked in the past 12 months: No Number of Cigarettes Smoked Daily: 0 Hx Alcohol Use: No Drug/Substance Use Hx: No Substance Use Type: None Hx Substance Use Treatment: No Review of Systems - Review of Systems Comments:: CONSTITUTIONAL: Denies F / C HEENT: endorses vertigo / sense of imbalance RESP: endorses increased baseline sob, productive cough CARD: endorses chest tightness GI: endorses poor PO intake. Denies N / V / D, abdominal pain : Denies dysuria SKIN: Denies rashes NEURO: endorses b/l leg heaviness. Denies numbness, tingling, weakness MSK: Denies back pain *Physical Exam - Vital Signs Last Vital Signs Temp Pulse Resp BP Pulse Ox 98.2 F 81 18 129/71 99 12/03/19 11:44 12/03/19 12:20 12/03/19 11:44 12/03/19 12:20 12/03/19 11:44 - Physical Exam GEN: NAD, comfortable. awake and alert. HEENT: NC/AT, CN II-XII intact, EOMI, PERRL. No facial asymmetry. Dry mucous membranes. Normal voice. Supple neck w/ FROM; ?midline vs paraspinal neck TTP. CV: S1/S2, RRR, +murmur LUNG: productive cough. bibasilar crackles; expiratory wheezes; good air movement and respiratory effort. No respiratory distress. GI: Soft, ndnt, +BS, no guarding, no rebound. SKIN: Warm, dry, no rashes appreciated. PSYCH: Normal mood and affect. NEURO: Moving all extremities well. 5/5 UE strength b/l. 5/5 LE strength b/l. Sensation symmetric and intact throughout. No ataxia on FTN MSK: trace LE edema. no TTP of the joints; no effusion of knees. No obvious deformities of all extremities. BACK: No obvious deformities, no step offs, no midline TTP. There is no pelvic instability. No signs of trauma. Procedures - Laceration/Wound Repair Left Medial Hand 3rd digit Wound Length: to 2.5 cm Wound Explored: no foreign body present, contaminated Wound's Depth, Shape: superficial, irregular (semi-mentasta) Irrigated w/ Saline: Yes Betadine Prep: No Amount of Anesthetic (ccs): 0 (not needed) Wound Debrided: minimal Wound Repaired With: Dermabond Layer Closure: No Sterile Dressing Applied: No Splint Applied: No Sling Applied: No Progress: 12/03/19 16:55 patient sustained laceration of the medial palmar aspect, DIP, of the left middle finger Pressure irrigated w/ 1L NS Superficial wound Wound dried 3 layers of dermabond applied hemostasis achieved; wound closure w/ good approximation achieved pt tolerated procedure well incident report filed update tetanus ED Treatment Course - LABORATORY CBC & Chemistry Diagram: 12/05/19 05:20 12/05/19 11:54 - RADIOLOGY Radiology Studies Ordered: Category Date Time Status CERVICAL SPINE CT W/O CONTR [CT] Stat CT Scan 12/03/19 12:[address] WITHOUT CONTRAST [CT] Stat CT Scan 12/03/19 12:29 Ordered CHEST X-RAY PORTABLE* [RAD] Stat Radiology 12/03/19 12:30 Ordered Medical Decision Making - Medical Decision Making 12/03/19 12:33 79F PMH HTN, HLD, Epilepsy, hypothyroidism, asthma, 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 On AC. ?TTP of midline vs paraspinal neck. Wheezes and crackles. DDX - bronchitis, URI, PNA, CHF, r/o ACS; dehydration, arrhythmia, lytes, UTI. Less likely anemia, VTE. - CBC, CMP, Cardiac, Coags, BNP - UA, UC - EKG - CXR - C-collar - CT head/neck - duonebs, ASA - Admit 12/03/19 13:03 EKG 1224 HR 78 MD 122 QRS 74 QTc 430 NSR; one premature beat. Asthma cohort pt - resp. and case mgmt request 12/03/19 13:17 wbc 14.8 > 7.9; pt is on prednisone 12/03/19 13:23 BNP 1800 trop neg 12/03/19 13:54 UA neg endorsed to Dr. Flores // Admitted f/u CT results 12/03/19 15:01 CT Head/Neck w/o acute pathology c-collar removed 12/03/19 16:36 notified by RN that pt sustained laceration to medial aspect of left middle fing er in the restroom on the edge of the bathroom door. - boostrix - see procedure note - incident report completed Discharge - Discharge Information Problems reviewed: Yes Clinical Impression/Diagnosis: Productive cough, Syncope and collapse Asthma exacerbation Qualifiers: Asthma severity: unspecified severity Asthma persistence: unspecified Qualified Code(s): J45.901 - Unspecified asthma with (acute) exacerbation Fall Qualifiers: Encounter type: initial encounter Qualified Code(s): W19.XXXA - Unspecified fall, initial encounter Condition: Stable - Admission Yes - Follow up/Referral - Patient Discharge Instructions - Post Discharge Activity
[2019-12-03] MEDS ORDERED: ASPIRIN 81 MG CHEWABLE TABLETS PO ONE (12:39)
[2019-12-03 13:04] LABS: BASO % 0.5 % (0-2.0); EOS % 1.8 % (0-4.5); HEMATOCRIT 37.8 % (32.4-45.2); HEMOGLOBIN 12.2 GM/dL (10.7-15.3); LYMPH % 10.3 % (8-40); MCH 27.5 pg (25.7-33.7); MCHC 32.2 g/dl (32.0-36.0); MEAN CELL VOLUME 85.3 fl (80-96); MEAN PLT VOLUME 8.3 fl (7.5-11.1); MONO % 7.4 % (3.8-10.2); PLATELET COUNT 232 K/MM3 (134-434); RBC 4.43 M/mm3 (3.60-5.2); RDW 15.9 % (11.6-15.6); WHITE BLOOD COUNT 14.8 K/mm3 (4.0-10.0)
[2019-12-03] MEDS ORDERED: ASPIRIN 81 MG CHEWABLE TABLETS ONE (13:04)
[2019-12-03 13:17] LABS: INR 1.21 (0.83-1.09); PROTHROMBIN TIME (PATIENT) 14.3 SEC (9.7-13.0)
[2019-12-03 13:19] LABS: ALBUMIN 3.2 g/dl (3.4-5.0); ALK PHOS 93 U/L (45-117); ANION GAP 7 MMOL/L (8-16); BILIRUBIN,TOTAL 0.5 mg/dL (0.2-1); BLOOD UREA NITROGEN 16.9 mg/dL (7-18); CALCIUM 8.2 mg/dL (8.5-10.1); CHLORIDE 104 mmol/L (98-107); CO2 29 mmol/L (21-32); CREATININE 0.9 mg/dL (0.55-1.3); GLUCOSE,RANDOM 82 mg/dL (74-106); POTASSIUM 4.2 mmol/L (3.5-5.1); SGOT/AST 26 U/L (15-37); SGPT/ALT 32 U/L (13-61); SODIUM 140 mmol/L (136-145); TOT PROT 6.1 g/dl (6.4-8.2)
--- NOTE | 2019-12-03 13:31 | PDOC ---
Attending Attestation - Resident Resident Name: Marcus Magana - ED Attending Attestation I have performed the following: I have examined & evaluated the patient, The case was reviewed & discussed with the resident, I agree w/resident's findings & plan - HPI HPI: 12/03/19 13:26 79-year-old female with history of asthma recently seen here 4 days ago with asthma exacerbation, discharged home on nebulizers and steroids after normal chest x-ray presents now after completion of her steroid course with persistent chest congestion, dyspnea on exertion, and cough/wheezing. Symptoms began with nasal congestion and sinusitis, then resulted in asthma exacerbation. No other travel or sick contacts, had catheterization many years ago in [place] without stent intervention. - Physicial Exam PE: 12/03/19 13:31 Hypertensive, afebrile with normal O2 sat on room air Elderly woman seated upright in stretcher speaking 5-6 words, occasional cough Naso-and oropharynx clear, neck supple Heart is regular, 2 out of 6 to 3 out of 6 systolic ejection murmur throughout the precordium Diffuse expiratory wheezing with slightly prolonged expiration, slightly decreased breath sounds at the left base, no crackles Abdomen benign Trace pretibial edema, no calf tenderness - Medical Decision Making 12/03/19 13:33 79-year-old female with persistent chest congestion and shortness of breath despite outpatient management of asthma exacerbation, here with ongoing symptoms and abnormal lung exam, though O2 sat is within normal limits. Labs EKG, chest x-rayrule out superimposed pneumonia Nebulizers, steroids Admission 12/03/19 13:46 WBC 14.8, possibly steroid reaction. CXR without acute infiltrate. Chem wnl. BNP elevated. ? CHF/volume overload v. persistent asthma exacerbation. admit for further evaluation/management of FIERRO. Heart Score/ECG Review #1 ECG reviewed & interpreted by me at: 11:24 General ECG Interpretation: Sinus Rhythm, Normal Rate (78), Normal Intervals (qtc 430), No acute ischemic changes
[2019-12-03 13:46] LABS: URINE APPEARANCE CLEAR; URINE BILIRUBIN NEGATIVE (NEGATIVE); URINE COLOR YELLOW; URINE GLUCOSE (UA) NEGATIVE (NEGATIVE); URINE KETONE NEGATIVE (NEGATIVE); URINE LEUK ESTERASE NEGATIVE (NEGATIVE); URINE NITRITE NEGATIVE (NEGATIVE); URINE PROTEIN NEGATIVE (NEGATIVE); URINE UROBILINOGEN 0.2 mg/dL (0.2-1.0)
[2019-12-03] MEDS ORDERED: DIPHTH,PERTUSS(ACELL),TET 0.5 ML DISP.SYRIN IM ONE ×2 (16:36→17:06)
[2019-12-03] MEDS ORDERED: FUROSEMIDE 40 MG/4 ML INJECTABLE VIAL ONE (17:06)
[2019-12-03] MEDS ORDERED: methylPREDNISolone NA SUCC 40 MG/1 ML VIAL ONE ×2 (17:06→21:57)
[2019-12-03] MEDS ORDERED: VANCOMYCIN 500 MG VIAL (RESTRICTED TO ID ONLY) ONE (17:06)
[2019-12-03] MEDS: FUROSEMIDE 40 MG/4 ML INJECTABLE VIAL IVPUSH SCH (17:17)
[2019-12-03] MEDS: methylPREDNISolone NA SUCC 40 MG/1 ML VIAL IVPUSH SCH ×2 (17:17→22:06)
[2019-12-03] MEDS: ALBUTEROL SO4 2.5/IPRATROPIUM 0.5 INH SOL 3 ML VIAL.NEB. NEB SCH (21:08)
[2019-12-03] MEDS ORDERED: PATIENT'S OWN MEDICATION (NON-FORMULARY) (Simvastatin [Simvastatin] 40 MG) PO SCH (22:00)
[2019-12-03] MEDS ORDERED: MONTELUKAST NA 10 MG TABLET ONE (23:14)
[2019-12-03] MEDS ORDERED: levETIRAcetam 500 MG TABLET (FP) PO ONE (23:14)
[2019-12-03] MEDS ORDERED: ATORVASTATIN CA 20 MG TABLET (FP) ONE (23:14)
[2019-12-03] MEDS ORDERED: APIXABAN 2.5 MG TABLET ONE (23:14)
[2019-12-03] MEDS: MONTELUKAST NA 10 MG TABLET PO SCH (23:20)
[2019-12-03] MEDS: levETIRAcetam 500 MG TABLET (FP) PO SCH (23:20)
[2019-12-03] MEDS: ATORVASTATIN CA 20 MG TABLET (FP) PO SCH (23:20)
[2019-12-03] MEDS: APIXABAN 2.5 MG TABLET PO SCH (23:20)
[2019-12-04] MEDS ORDERED: methylPREDNISolone NA SUCC 40 MG/1 ML VIAL ONE ×2 (02:56→08:34)
[2019-12-04] MEDS: methylPREDNISolone NA SUCC 40 MG/1 ML VIAL IVPUSH SCH ×4 (02:59→21:31)
[2019-12-04] MEDS ORDERED: LEVOTHYROXINE NA 25 MCG TABLET (FP) ONE (06:23)
[2019-12-04] MEDS: LEVOTHYROXINE NA 25 MCG TABLET (FP) PO SCH (06:26)
[2019-12-04] MEDS: ALBUTEROL SO4 2.5/IPRATROPIUM 0.5 INH SOL 3 ML VIAL.NEB. NEB SCH ×4 (08:05→20:20)
[2019-12-04 08:24] LABS: ALBUMIN 3.3 g/dl (3.4-5.0); ALK PHOS 95 U/L (45-117); ANION GAP 8 MMOL/L (8-16); BILIRUBIN,TOTAL 0.7 mg/dL (0.2-1); BLOOD UREA NITROGEN 22.2 mg/dL (7-18); CALCIUM 8.7 mg/dL (8.5-10.1); CHLORIDE 102 mmol/L (98-107); CO2 29 mmol/L (21-32); GLUCOSE,RANDOM 185 mg/dL (74-106); POTASSIUM 4.2 mmol/L (3.5-5.1); SGOT/AST 19 U/L (15-37); SGPT/ALT 29 U/L (13-61); SODIUM 139 mmol/L (136-145); TOT PROT 6.2 g/dl (6.4-8.2)
[2019-12-04] MEDS ORDERED: levETIRAcetam 500 MG TABLET (FP) PO ONE (08:33)
[2019-12-04] MEDS ORDERED: ASPIRIN COATED 81 MG TABLET.EC ONE (08:33)
[2019-12-04] MEDS ORDERED: APIXABAN 2.5 MG TABLET ONE (08:33)
[2019-12-04] MEDS ORDERED: ALBUTEROL SO4 2.5/IPRATROPIUM 0.5 INH SOL 3 ML VIAL.NEB. NEB ONE (08:33)
[2019-12-04] MEDS ORDERED: PANTOPRAZOLE 40 MG TABLET ONE (08:33)
[2019-12-04] MEDS ORDERED: FUROSEMIDE 40 MG/4 ML INJECTABLE VIAL ONE (08:34)
[2019-12-04 08:58] LABS: BASO % 0.2 % (0-2.0); HEMATOCRIT 37.7 % (32.4-45.2); HEMOGLOBIN 12.3 GM/dL (10.7-15.3); LYMPH % 5.8 % (8-40); MCH 27.5 pg (25.7-33.7); MCHC 32.6 g/dl (32.0-36.0); MEAN CELL VOLUME 84.5 fl (80-96); MONO % 1.6 % (3.8-10.2); NEUT % 92.4 % (42.8-82.8); PLATELET COUNT 251 K/MM3 (134-434); RBC 4.46 M/mm3 (3.60-5.2); RDW 15.9 % (11.6-15.6); WHITE BLOOD COUNT 10.7 K/mm3 (4.0-10.0)
--- NOTE | 2019-12-04 09:35 | EKG ---
Test Reason : Blood Pressure : / mmHG Vent. Rate : 078 BPM Atrial Rate : 078 BPM P-R Int : 122 ms QRS Dur : 074 ms QT Int : 378 ms P-R-T Axes : 018 015 -06 degrees QTc Int : 430 ms SINUS RHYTHM WITH PREMATURE SUPRAVENTRICULAR COMPLEXES OTHERWISE NORMAL ECG WHEN COMPARED WITH ECG OF 11-AUG-2019 17:56, PREMATURE VENTRICULAR COMPLEXES ARE NO LONGER PRESENT PREMATURE SUPRAVENTRICULAR COMPLEXES ARE NOW PRESENT Confirmed by Nasreen Grewal ([id number]) on 12/04/2019 9:34:47 AM Referred By: Confirmed By:Nasreen Gerwal
[2019-12-04] MEDS ORDERED: PATIENT'S OWN MEDICATION (NON-FORMULARY) (Losartan/Hydrochlorothiazide [Losartan-Hctz 100- PO SCH (10:00)
[2019-12-04] MEDS: APIXABAN 2.5 MG TABLET PO SCH ×2 (10:23→21:30)
[2019-12-04] MEDS: ASPIRIN COATED 81 MG TABLET.EC PO SCH (10:23)
[2019-12-04] MEDS: levETIRAcetam 500 MG TABLET (FP) PO SCH ×2 (10:24→21:30)
[2019-12-04] MEDS: FUROSEMIDE 40 MG/4 ML INJECTABLE VIAL IVPUSH SCH (10:24)
[2019-12-04] MEDS: PANTOPRAZOLE 40 MG TABLET PO SCH (10:29)
[2019-12-04] MEDS: LOSARTAN 50MG/HCTZ 12.5MG 1 TAB (FP) PO SCH (11:30)
--- NOTE | 2019-12-04 12:28 | PN ---
Progress Note (short form) - Note Progress Note: ID CONSULT DICTATED ACUTE EXACERBATION COPD ? PNEUMONIA PCN ALLERGY AWAIT C/S EMPIRIC LEVAQUIN
--- NOTE | 2019-12-04 13:24 | CON.PULM ---
Consult Consult Specialty:: PULMONARY Referred by:: Dr Flores Reason for Consultation:: shortness of breath - History of Present Illness Chief Complaint: shortness of breath History of Present Illness: 79yo female with h/o asthma, HTN, hyperlipidemia, hypothyroidism, h/o DVT, seizure disorder, recently admitted for acute asthma exacerbation who returns with worsening shortness of breath, cough and wheezing. No fevers, chills or sweats. No chest pain or discomfort. Cough productive of yellow sputum and also feels sinus congestion. She is a never smoker, reports compliance with her inhalers and prednisone. 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: CVA, Seizure ( last seizure >10yrs ago), Vertigo Cardio/Vascular: Yes: Aortic Stenosis, HTN Pulmonary: Yes: Asthma Gastrointestinal: Yes: Gastritis Musculoskeletal: Yes: Other (arthritis (type not specificed)) ENT: Yes: Sinusitis Endocrine: Yes: Hypothyroidism Additional Medical History: DVTs, HPL - Past Surgical History Past Surgical History: Yes: Breast Biopsy, Hysterectomy (Possible) - Alcohol/Substance Use Hx Alcohol Use: No History of Substance Use: reports: None - Smoking History Smoking history: Never smoked Have you smoked in the past 12 months: No Aproximately how many cigarettes per day: 0 - Social History ADL: Independent Occupation: retired 20 yrs ago History of Recent Travel: Yes (traveled from [place]) Home Medications - Allergies Allergies/Adverse Reactions: Allergies Allergy/AdvReac Type Severity Reaction Status Date / Time Penicillins Allergy Swelling Verified 12/03/19 11:48 - Home Medications Home Medications: Ambulatory Orders Fluticasone Prop 0.05% Nasal [Flonase -] 1 - 2 spray NS BID 04/15/17 Levothyroxine [Synthroid -] 25 mcg PO DAILY 04/15/17 Losartan/Hydrochlorothiazide [Losartan-Hctz 100-25 mg Tab] 1 each PO DAILY 04/15/17 Pantoprazole Sodium [Protonix -] 40 mg PO DAILY 04/15/17 Salmeterol/Fluticasone [Advair 250Mcg/50Mcg -] 1 inh PO BID 05/02/17 Simvastatin 40 mg PO HS 06/13/17 Apixaban [Eliquis] 2.5 mg PO BID 06/11/19 Linaclotide [Linzess] 290 mcg PO DAILY 08/12/19 levETIRAcetam [Keppra -] 750 mg PO BID 08/12/19 Benzonatate 200 mg PO BID 08/13/19 Meclizine HCl [Antivert -] 25 mg PO BID PRN 08/13/19 Albuterol 0.083% Nebulizer Prabha [Ventolin 0.083% Nebulizer Soln -] 1 amp NEB Q4H PRN amp 08/21/19 Albuterol 2.5/Ipratropium 0.5 [Duoneb -] 1 amp NEB RQID amp 08/21/19 Fluticasone/Salmeterol [Advair 250-50 Diskus] 1 each IH BID #1 blst.w.dev 10/21/19 Montelukast Na [Singulair -] 10 mg PO HS #1 tablet 10/21/19 Azithromycin 250 mg PO DAILY #4 tablet 11/29/19 predniSONE [Deltasone -] 40 mg PO DAILY #10 tablet 11/29/19 Review of Systems - Review of Systems Constitutional: reports: Weakness. denies: Chills, Fever Eyes: denies: Recent Change in Vision HENT: denies: Nasal Congestion, Throat Pain Neck: denies: Stiffness, Tenderness Cardiovascular: reports: Shortness of Breath. denies: Chest Pain Respiratory: reports: Cough, SOB on Exertion, Wheezing. denies: Hemoptysis Gastrointestinal: denies: Abdominal Pain, Nausea, Vomiting Genitourinary: denies: Dysuria, Hematuria Neurological: denies: Dizziness, Headache Endocrine: denies: Unexplained Weight Loss Physical Exam Vital Sings: Vital Signs Temperature 98.3 F 12/04/19 11:21 Pulse Rate 82 12/04/19 11:21 Respiratory Rate 18 12/04/19 11:21 Blood Pressure 124/65 12/04/19 11:21 O2 Sat by Pulse Oximetry (%) 98 12/04/19 11:21 Constitutional: Yes: Calm Eyes: Yes: Conjunctiva Clear, EOM Intact HENT: Yes: Atraumatic, Normocephalic Neck: Yes: Supple, Trachea Midline Cardiovascular: Yes: Regular Rate and Rhythm Respiratory: Yes: Rhonchi, Wheezes ...Clubbing: No Gastrointestinal: Yes: Normal Bowel Sounds, Soft. No: Tenderness Edema: No Neurological: Yes: Alert, Oriented Labs: CBC, BMP 12/04/19 06:55 12/04/19 06:55 Imaging - Results Chest X-ray: Report Reviewed, Image Reviewed (no infiltrates) Problem List - Problems (1) Asthma exacerbation Code(s): J45.901 - UNSPECIFIED ASTHMA WITH (ACUTE) EXACERBATION Qualifiers: Asthma severity: unspecified severity Asthma persistence: unspecified Qualified Code(s): J45.901 - Unspecified asthma with (acute) exacerbation Assessment/Plan Acute Asthma Exacerbation Seizure Disorder HTN Hyperlipidemia h/o DVT - IV medrol - inhaled bronchodilators - O2 to keep SpO2 >90% - nasal steroids - singulair - on empiric antibiotics - continue anticoagulation Thank you for this consult Ant Wilkins MD
[2019-12-04 13:26] LABS: ANISOCYTOSIS 1+; MACROCYTOSIS 0; PLATELET ESTIMATE NORMAL; TARGET CELLS 1+
--- NOTE | 2019-12-04 13:47 | CON.CARD ---
Consult Consult Specialty:: Cardiology Reason for Consultation:: Dyspnea - History of Present Illness History of Present Illness: 79yo female with h/o asthma, HTN, hyperlipidemia, hypothyroidism, h/o DVT, seizure disorder, recently admitted for acute asthma exacerbation who returns with worsening shortness of breath, cough and wheezing. No fevers, chills or sweats. No chest pain or discomfort. Cough productive of yellow sputum. Echocardiogram 06/2019 with normal LV function. No severe -mild to moderate. Severe TR. Stress test in [place] was reportedly negative. ECG NSR no ST T changes. 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, Seizure ( last seizure >10yrs ago), Vertigo Cardio/Vascular: Yes: Aortic Stenosis, HTN Pulmonary: Yes: Asthma Gastrointestinal: Yes: Gastritis Musculoskeletal: Yes: Other (arthritis (type not specificed)) ENT: Yes: Sinusitis Endocrine: Yes: Hypothyroidism Additional Medical History: DVTs, HPL - Past Surgical History Past Surgical History: Yes: Breast Biopsy, Hysterectomy (Possible) - Alcohol/Substance Use Hx Alcohol Use: No History of Substance Use: reports: None - Smoking History Smoking history: Never smoked Have you smoked in the past 12 months: No Aproximately how many cigarettes per day: 0 - Social History ADL: Independent Occupation: retired 20 yrs ago History of Recent Travel: Yes (traveled from [place]) Home Medications - Allergies Allergies/Adverse Reactions: Allergies Allergy/AdvReac Type Severity Reaction Status Date / Time Penicillins Allergy Swelling Verified 12/03/19 11:48 - Home Medications Home Medications: Ambulatory Orders Fluticasone Prop 0.05% Nasal [Flonase -] 1 - 2 spray NS BID 04/15/17 Levothyroxine [Synthroid -] 25 mcg PO DAILY 04/15/17 Losartan/Hydrochlorothiazide [Losartan-Hctz 100-25 mg Tab] 1 each PO DAILY 04/15/17 Pantoprazole Sodium [Protonix -] 40 mg PO DAILY 04/15/17 Salmeterol/Fluticasone [Advair 250Mcg/50Mcg -] 1 inh PO BID 05/02/17 Simvastatin 40 mg PO HS 06/13/17 Apixaban [Eliquis] 2.5 mg PO BID 06/11/19 Linaclotide [Linzess] 290 mcg PO DAILY 08/12/19 levETIRAcetam [Keppra -] 750 mg PO BID 08/12/19 Benzonatate 200 mg PO BID 08/13/19 Meclizine HCl [Antivert -] 25 mg PO BID PRN 08/13/19 Albuterol 0.083% Nebulizer Prabha [Ventolin 0.083% Nebulizer Soln -] 1 amp NEB Q4H PRN amp 08/21/19 Albuterol 2.5/Ipratropium 0.5 [Duoneb -] 1 amp NEB RQID amp 08/21/19 Fluticasone/Salmeterol [Advair 250-50 Diskus] 1 each IH BID #1 blst.w.dev 10/21/19 Montelukast Na [Singulair -] 10 mg PO HS #1 tablet 10/21/19 Azithromycin 250 mg PO DAILY #4 tablet 11/29/19 predniSONE [Deltasone -] 40 mg PO DAILY #10 tablet 11/29/19 Review of Systems - Review of Systems Constitutional: reports: No Symptoms Eyes: reports: No Symptoms HENT: reports: Nasal Congestion Neck: reports: No Symptoms Cardiovascular: denies: Chest Pain, Edema Respiratory: reports: Cough, SOB Gastrointestinal: reports: No Symptoms Genitourinary: reports: No Symptoms Vital Signs: Vital Signs Temperature 98.3 F 12/04/19 11:21 Pulse Rate 82 12/04/19 11:21 Respiratory Rate 18 12/04/19 11:21 Blood Pressure 124/65 12/04/19 11:21 O2 Sat by Pulse Oximetry (%) 98 12/04/19 11:21 Constitutional: Yes: Well Nourished, No Distress Eyes: Yes: Conjunctiva Clear, EOM Intact HENT: Yes: Atraumatic, Normocephalic Neck: Yes: Supple Respiratory: Yes: Regular, Poor Air Entry, Wheezes Gastrointestinal: Yes: Normal Bowel Sounds Heart Sounds: Yes: S1, S2 Murmur: Yes: Systolic Murmur, Grade 2 (LLSB LUSB) Edema: No - Other Data Labs, Other Data: CBC, BMP 12/04/19 06:55 12/04/19 06:55 INR, PTT INR 1.21 (0.83-1.09) H 12/03/19 12:56 Troponin, BNP 12/04/19 06:55 Troponin I < 0.02 Troponin, BNP 12/04/19 06:55 Troponin I < 0.02 Imaging - Results Chest X-ray: Report Reviewed Problem List - Problems (1) Asthma exacerbation Code(s): J45.901 - UNSPECIFIED ASTHMA WITH (ACUTE) EXACERBATION Qualifiers: Asthma severity: unspecified severity Asthma persistence: unspecified Qualified Code(s): J45.901 - Unspecified asthma with (acute) exacerbation Assessment/Plan Asthmatic 79 F with HTN and mild admitted with asthma exacerbation. ECG without ischemic changes. CXR shows clear lungs and exam does not suggest Heart failure. Mild BNP elevation in setting of asthma. Would use diuretics cautiosly if at all. BNP will improve after asthma therapy. DC telemetry. Will see as needed.
[2019-12-04] MEDS: FLUTICASONE PROP 0.05% 16 GM NASAL SPRAY NS SCH ×2 (14:47→21:31)
--- NOTE | 2019-12-04 14:54 | CONS ---
INFECTIOUS DISEASE CONSULTATION DATE OF CONSULTATION: DATE OF DICTATION: 12/04/2019 HISTORY: The patient is an 81-year-old female with a history of asthma evaluated for possible pneumonia. She was admitted to the hospital on December 03, 2019, with increasing shortness of breath, cough, and chest pain. She had been seen in the emergency room on November 29, 2019, with similar symptoms. She was diagnosed with an acute exacerbation of COPD/asthma. She was prescribed Zithromax, albuterol, and prednisone. She reports after taking the prednisone she has had improvement, however, now returns with worsening shortness of breath and cough. She was evaluated in the emergency room where she was afebrile; however, her white blood count was elevated to 14.8. Chest x-ray showed some increased markings bilaterally. No focal consolidation. Patient reports cough productive of whitish sputum. She denies any chest pain at the present time. The patient has a history of asthma; however, is not oxygen or steroid dependent. She denies any ill contacts. She lives at home. She has received prior to admission. She is a nonsmoker. No recent travel. PAST MEDICAL HISTORY: Positive for aortic stenosis, hypertension, hyperlipidemia, hypothyroidism, asthma, DVT. ALLERGIES: PENICILLIN. Patient reports developing rash many years ago. MEDICATIONS: Include Lipitor, losartan, albuterol, aspirin, Keppra, Eliquis, Lasix, Protonix, Synthroid, Solu-Medrol, Singulair. SOCIAL HISTORY: As per HPI. SYSTEMS REVIEW: Neurologic: No loss of consciousness, seizure activity, focal weakness. Cardiac: Negative chest pain or palpitations. Respiratory: As per HPI. Gastrointestinal: Negative vomiting or diarrhea. Genitourinary: Negative for urinary tract infection. LABORATORY DATA: White count on admission 14.8, 92 neutrophils, 5 lymphocytes, 1 monocytes, hematocrit 37.7, platelet count 251, creatinine 1.0. Liver enzymes normal. Urinalysis negative. Urine culture, normal navdeep. PHYSICAL EXAMINATION: General: She is out of bed to chair. She is awake. She appears slightly short of breath at rest on nasal cannula. Possible audible wheezing. Vital Signs: Temperature 97.8, blood pressure 124/65, pulse 82 regular, respirations 18 per minute. HEENT: Sclerae anicteric. Heart: Sounds S1, S2. Lungs: Rhonchi bilaterally and end expiratory wheeze. No rales. Abdomen: Obese, soft, nontender. Extremities: Positive for edema. Negative Homans sign. IMPRESSION: 1. Acute exacerbation chronic obstructive pulmonary disease. 2. Rule out community-acquired versus atypical pneumonia. 3. PENICILLIN allergy. PLAN: Await cultures. Obtain blood cultures, sputum culture, urine Legionella and pneumococcal antigens, viral respiratory panel. Continue empiric Levaquin. Pulmonary evaluation. Inhaler bronchodilators and intravenous corticosteroids. Thank you for the kind referral. LUIS A COKER M.D. [id number]
--- NOTE | 2019-12-04 17:04 | HP ---
Admitting History and Physical - Primary Care Physician PCP: Feli Alonzo - Admission Chief Complaint: sob cough History of Present Illness: 79 year old female with PMH HTN, HLD, epilepsy, hypothyroidism, asthma, ble dvt presents to the ED with sob, cough, chest pain. she was seen in the ED 11/29/2019 given po antbx, po steroids and sent home, she wasnt feeling better, still coughing, having productive phlegm. she lost her balance 2 nights ago and fell. she denies chest pains, pressure, n/v/d. she reports +headache, +nasal congestion. 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: CVA, Seizure ( last seizure >10yrs ago), Vertigo Cardiovascular: Yes: Aortic Stenosis, HTN Pulmonary: Yes: Asthma Gastrointestinal: Yes: Gastritis Heme/Onc: Yes: Other (Chronic DVTs) Musculoskeletal: Yes: Other (arthritis (type not specificed)) ENT: Yes: Sinusitis Endocrine: Yes: Hypothyroidism - Past Surgical History Past Surgical History: Yes: Breast Biopsy, Hysterectomy (Possible) - Smoking History Smoking history: Never smoked Have you smoked in the past 12 months: No Aproximately how many cigarettes per day: 0 - Alcohol/Substance Use Hx Alcohol Use: No History of Substance Use: reports: None - Social History ADL: Independent Occupation: retired 20 yrs ago History of Recent Travel: Yes (traveled from [place]) Home Medications - Allergies Allergies/Adverse Reactions: Allergies Allergy/AdvReac Type Severity Reaction Status Date / Time Penicillins Allergy Swelling Verified 12/03/19 11:48 - Home Medications Home Medications: Ambulatory Orders Fluticasone Prop 0.05% Nasal [Flonase -] 1 - 2 spray NS BID 04/15/17 Levothyroxine [Synthroid -] 25 mcg PO DAILY 04/15/17 Losartan/Hydrochlorothiazide [Losartan-Hctz 100-25 mg Tab] 1 each PO DAILY 04/15/17 Pantoprazole Sodium [Protonix -] 40 mg PO DAILY 04/15/17 Salmeterol/Fluticasone [Advair 250Mcg/50Mcg -] 1 inh PO BID 05/02/17 Simvastatin 40 mg PO HS 06/13/17 Apixaban [Eliquis] 2.5 mg PO BID 06/11/19 Linaclotide [Linzess] 290 mcg PO DAILY 08/12/19 levETIRAcetam [Keppra -] 750 mg PO BID 08/12/19 Benzonatate 200 mg PO BID 08/13/19 Meclizine HCl [Antivert -] 25 mg PO BID PRN 08/13/19 Albuterol 0.083% Nebulizer Prabha [Ventolin 0.083% Nebulizer Soln -] 1 amp NEB Q4H PRN amp 08/21/19 Albuterol 2.5/Ipratropium 0.5 [Duoneb -] 1 amp NEB RQID amp 08/21/19 Fluticasone/Salmeterol [Advair 250-50 Diskus] 1 each IH BID #1 blst.w.dev 10/21/19 Montelukast Na [Singulair -] 10 mg PO HS #1 tablet 10/21/19 Azithromycin 250 mg PO DAILY #4 tablet 11/29/19 predniSONE [Deltasone -] 40 mg PO DAILY #10 tablet 11/29/19 Family Medical History Family History: Unable to Obtain Review of Systems - Review of Systems Constitutional: reports: Lethargy, Weakness HENT: reports: Nasal Congestion Cardiovascular: reports: Chest Pain Respiratory: reports: Cough, SOB Gastrointestinal: reports: No Symptoms Genitourinary: reports: No Symptoms Breasts: reports: No Symptoms Reported Musculoskeletal: reports: No Symptoms Integumentary: reports: No Symptoms Neurological: reports: Headache, Unsteady Gait Hematology/Lymphatic: reports: No Symptoms Psychiatric: reports: No Symptoms Physical Examination Vital Signs: Vital Signs Temperature 98.3 F 12/04/19 12:22 Pulse Rate 89 12/04/19 12:22 Respiratory Rate 18 12/04/19 12:22 Blood Pressure 126/65 12/04/19 12:22 O2 Sat by Pulse Oximetry (%) 99 12/04/19 12:22 Constitutional: Yes: Well Nourished, No Distress Eyes: Yes: Conjunctiva Clear HENT: Yes: Atraumatic, Normocephalic Neck: Yes: Supple Cardiovascular: Yes: Regular Rate and Rhythm Respiratory: Yes: Wheezes Gastrointestinal: Yes: Normal Bowel Sounds, Soft Musculoskeletal: Yes: WNL Extremities: Yes: WNL Neurological: Yes: Alert, Oriented Psychiatric: Yes: Alert, Oriented Labs: CBC, BMP 12/04/19 06:55 12/04/19 06:55 Problem List - Problems (1) COPD exacerbation Assessment/Plan: pulm eval ID eval IV antbx IV mp ppi neb tx Code(s): J44.1 - CHRONIC OBSTRUCTIVE PULMONARY DISEASE W (ACUTE) EXACERBATION (2) Atypical chest pain Assessment/Plan: cardiology eval tele monitoring trop neg likely pleuritic vs chf Code(s): R07.89 - OTHER CHEST PAIN (3) DVT (deep venous thrombosis) Assessment/Plan: cont eliquis Code(s): I82.409 - ACUTE EMBOLISM AND THOMBOS UNSP DEEP VN UNSP LOWER EXTREMITY Qualifiers: DVT location: lower extremity Chronicity: chronic (4) Hyperlipemia Assessment/Plan: cont home meds Code(s): E78.5 - HYPERLIPIDEMIA, UNSPECIFIED Qualifiers: Hyperlipidemia type: pure hypercholesterolemia Qualified Code(s): E78.00 - Pure hypercholesterolemia, unspecified (5) Hypertension Assessment/Plan: cotn home meds Code(s): I10 - ESSENTIAL (PRIMARY) HYPERTENSION Qualifiers: Hypertension type: essential hypertension Qualified Code(s): I10 - Essential (primary) hypertension (6) Seizure disorder Assessment/Plan: cont home meds Code(s): G40.909 - EPILEPSY, UNSP, NOT INTRACTABLE, WITHOUT STATUS EPILEPTICUS (7) Fall in elderly patient Assessment/Plan: PT eval Code(s): R29.6 - REPEATED FALLS (8) Type 2 diabetes mellitus Assessment/Plan: a1c 6.1 cont home meds Code(s): E11.9 - TYPE 2 DIABETES MELLITUS WITHOUT COMPLICATIONS Qualifiers: Diabetes mellitus residential insulin use: without residential use Diabetes mellitus complication status: without complication Qualified Code(s): E11.9 - Type 2 diabetes mellitus without complications (9) Moderate aortic stenosis Assessment/Plan: cardiology eval IV lasix I & O daiyl weights Code(s): I35.0 - NONRHEUMATIC AORTIC (VALVE) STENOSIS
[2019-12-04] MEDS: ATORVASTATIN CA 20 MG TABLET (FP) PO SCH (21:30)
[2019-12-04] MEDS: MONTELUKAST NA 10 MG TABLET PO SCH (21:31)
[2019-12-05] MEDS: methylPREDNISolone NA SUCC 40 MG/1 ML VIAL IVPUSH SCH ×4 (02:53→21:43)
[2019-12-05] MEDS: LEVOTHYROXINE NA 25 MCG TABLET (FP) PO SCH (06:14)
[2019-12-05 06:27] LABS: BASO % 0.1 % (0-2.0); HEMATOCRIT 37.1 % (32.4-45.2); HEMOGLOBIN 12.1 GM/dL (10.7-15.3); LYMPH % 3.9 % (8-40); MCH 27.9 pg (25.7-33.7); MCHC 32.8 g/dl (32.0-36.0); MEAN CELL VOLUME 85.1 fl (80-96); MEAN PLT VOLUME 8.7 fl (7.5-11.1); MONO % 3.7 % (3.8-10.2); NEUT % 92.3 % (42.8-82.8); PLATELET COUNT 251 K/MM3 (134-434); RBC 4.36 M/mm3 (3.60-5.2); RDW 15.9 % (11.6-15.6); WHITE BLOOD COUNT 13.5 K/mm3 (4.0-10.0)
[2019-12-05 07:07] LABS: BILIRUBIN,TOTAL 0.6 mg/dL (0.2-1); BLOOD UREA NITROGEN 29.1 mg/dL (7-18); CALCIUM 8.9 mg/dL (8.5-10.1); POTASSIUM 5.4 mmol/L (3.5-5.1); TOT PROT 5.9 g/dl (6.4-8.2)
--- NOTE | 2019-12-05 08:14 | PN ---
Progress Note, Physician Chief Complaint: AWAKE ALERT C/O COUGH SHORT OF BREATH ALSO HAS SINUS PRESSURE WITH HEAD CONGESTION - Current Medication List Current Medications: Active Medications Albuterol/Ipratropium (Duoneb -) 1 amp NEB RQID [facility] Last Admin: 12/04/19 20:20 Dose: 1 amp Documented by: Apixaban (Eliquis -) 2.5 mg PO BID [facility] Last Admin: 12/04/19 21:30 Dose: 2.5 mg Documented by: Aspirin (Ecotrin -) 81 mg PO DAILY [facility] Last Admin: 12/04/19 10:23 Dose: 81 mg Documented by: Atorvastatin Calcium (Lipitor -) 20 mg PO [facility] Last Admin: 12/04/19 21:30 Dose: 20 mg Documented by: Fluticasone Propionate (Flonase -) 2 spray NS BID [facility] Last Admin: 12/04/19 21:31 Dose: 2 sprays Documented by: Furosemide (Lasix Injection -) 40 mg IVPUSH DAILY [facility] Last Admin: 12/04/19 10:24 Dose: 40 mg Documented by: HCTZ/Losartan Potassium (Hyzaar -) 2 tab PO DAILY [facility] Last Admin: 12/04/19 11:30 Dose: Not Given Documented by: Levofloxacin (Levaquin 500 Mg Premixed Ivpb -) 500 mg in 100 mls @ 100 mls/hr IVPB DAILY [facility]; Protocol Last Admin: 12/04/19 10:45 Dose: 100 mls/hr Documented by: Levetiracetam (Keppra -) 750 mg PO BID [facility] Last Admin: 12/04/19 21:30 Dose: 750 mg Documented by: Levothyroxine Sodium (Synthroid -) 25 mcg PO ACBK [facility] Last Admin: 12/05/19 06:14 Dose: 25 mcg Documented by: Meclizine HCl (Antivert -) 25 mg PO Q12H PRN PRN Reason: dizziness Methylprednisolone Sodium Succinate (Solu-Medrol -) 40 mg IVPUSH Q6H-IV [facility] Last Admin: 12/05/19 02:53 Dose: 40 mg Documented by: Montelukast Sodium (Singulair -) 10 mg PO HS [facility] Last Admin: 12/04/19 21:31 Dose: 10 mg Documented by: Pantoprazole Sodium (Protonix -) 40 mg PO DAILY [facility] Last Admin: 12/04/19 10:29 Dose: 40 mg Documented by: Sodium Chloride ([place] Nasal [place] -) 2 spray NS BID PRN PRN Reason: NASAL CONGESTION - Objective Vital Signs: Vital Signs Temperature 97.9 F 12/05/19 06:00 Pulse Rate 79 12/05/19 06:00 Respiratory Rate 18 12/05/19 06:00 Blood Pressure 117/61 12/05/19 06:00 O2 Sat by Pulse Oximetry (%) 98 12/04/19 21:00 Constitutional: Yes: Mild Distress Cardiovascular: Yes: Regular Rate and Rhythm Respiratory: Yes: Diminished, On Nasal O2, Wheezes Gastrointestinal: Yes: Soft, Abdomen, Obese Musculoskeletal: Yes: Muscle Weakness Edema: Yes Edema: LLE: Trace, RLE: Trace Peripheral Pulses WNL: Yes Integumentary: Yes: Venous Stasis Changes Neurological: Yes: Unsteady Gait ...Motor Strength: LLE, RLE Psychiatric: Yes: WNL Labs: CBC, BMP 12/05/19 05:20 12/05/19 05:20 INR, PTT INR 1.21 (0.83-1.09) H 12/03/19 12:56 Problem List - Problems (1) COPD exacerbation Code(s): J44.1 - CHRONIC OBSTRUCTIVE PULMONARY DISEASE W (ACUTE) EXACERBATION (2) Fall Code(s): W19.XXXA - UNSPECIFIED FALL, INITIAL ENCOUNTER Qualifiers: Encounter type: initial encounter Qualified Code(s): W19.XXXA - Unspecified fall, initial encounter (3) Productive cough Code(s): R05 - COUGH (4) Acute bronchitis Code(s): J20.9 - ACUTE BRONCHITIS, UNSPECIFIED Qualifiers: Bronchitis organism: unspecified organism Qualified Code(s): J20.9 - Acute bronchitis, unspecified (5) Acute exacerbation of mild persistent extrinsic asthma Code(s): J45.31 - MILD PERSISTENT ASTHMA WITH (ACUTE) EXACERBATION (6) Hyperlipemia Code(s): E78.5 - HYPERLIPIDEMIA, UNSPECIFIED Qualifiers: Hyperlipidemia type: pure hypercholesterolemia Qualified Code(s): E78.00 - Pure hypercholesterolemia, unspecified (7) Hypertension Code(s): I10 - ESSENTIAL (PRIMARY) HYPERTENSION Qualifiers: Hypertension type: essential hypertension Qualified Code(s): I10 - Essential (primary) hypertension (8) Seizure disorder Code(s): G40.909 - EPILEPSY, UNSP, NOT INTRACTABLE, WITHOUT STATUS EPILEPTICUS (9) Type 2 diabetes mellitus Code(s): E11.9 - TYPE 2 DIABETES MELLITUS WITHOUT COMPLICATIONS Qualifiers: Diabetes mellitus rn long term care insulin use: without rn long term care use Diabetes mellitus complication status: without complication Qualified Code(s): E11.9 - Type 2 diabetes mellitus without complications Assessment/Plan LABS TODAY K+ 5.4 WILL REPEAT TODAY IV LEVAQUIN WITH 02 SUPPORT/NEBS CONTINUE OOB TO CHAIR DVT PROPHYLAXIS PT EVAL CHECK LABS/CULTURES NO RECENT TRAVEL, NO SICK CONTACTS NOT COVID-19 SUSPECT MONITOR BGM
[2019-12-05] MEDS: ALBUTEROL SO4 2.5/IPRATROPIUM 0.5 INH SOL 3 ML VIAL.NEB. NEB SCH ×4 (08:24→20:19)
--- NOTE | 2019-12-05 09:14 | HOSP ---
Subjective - Review of Symptoms Events since last encounter: Saw pt with daughter in attendence. Stated she did not was a Nurse Practitioner taking care of her. Stated she has "good insurance" and deserves to have a "real doctor" take care of her. I will excuse myself from her care. Dori Chemo notified. Physical Examination Vital Signs: Vital Signs Temperature 97.9 F 12/05/19 06:00 Pulse Rate 79 12/05/19 06:00 Respiratory Rate 18 12/05/19 06:00 Blood Pressure 117/61 12/05/19 06:00 O2 Sat by Pulse Oximetry (%) 98 12/04/19 21:00 Labs: CBC, BMP 12/05/19 05:20 12/05/19 05:20
[2019-12-05] MEDS: FUROSEMIDE 40 MG/4 ML INJECTABLE VIAL IVPUSH SCH (09:34)
[2019-12-05] MEDS: levETIRAcetam 500 MG TABLET (FP) PO SCH ×2 (09:35→21:43)
[2019-12-05] MEDS: APIXABAN 2.5 MG TABLET PO SCH ×2 (09:35→21:44)
[2019-12-05] MEDS: ASPIRIN COATED 81 MG TABLET.EC PO SCH (09:35)
[2019-12-05] MEDS: LOSARTAN 50MG/HCTZ 12.5MG 1 TAB (FP) PO SCH (09:35)
[2019-12-05] MEDS: LORATADINE 10 MG TABLET PO SCH (09:36)
[2019-12-05] MEDS: PANTOPRAZOLE 40 MG TABLET PO SCH (09:36)
[2019-12-05] MEDS: FLUTICASONE PROP 0.05% 16 GM NASAL SPRAY NS SCH ×2 (09:46→21:44)
[2019-12-05] MEDS ORDERED: PT OWN MED DRAWER 7, Y5N ONE (09:51)
[2019-12-05 10:40] LABS: ANISOCYTOSIS 1+; MACROCYTOSIS 0; OVALOCYTE 1+; PLATELET ESTIMATE NORMAL; TARGET CELLS 1+
[2019-12-05 12:32] LABS: BLOOD UREA NITROGEN 30.6 mg/dL (7-18); CALCIUM 9.3 mg/dL (8.5-10.1); CREATININE 1.1 mg/dL (0.55-1.3); POTASSIUM 3.9 mmol/L (3.5-5.1)
--- NOTE | 2019-12-05 12:35 | PN ---
Progress Note (short form) - Note Progress Note: Problem List - Problems (1) Asthma exacerbation Code(s): J45.901 - UNSPECIFIED ASTHMA WITH (ACUTE) EXACERBATION Qualifiers: Asthma severity: unspecified severity Asthma persistence: unspecified Qualified Code(s): J45.901 - Unspecified asthma with (acute) exacerbation Assessment/Plan Acute Asthma Exacerbation Seizure Disorder HTN Hyperlipidemia h/o DVT - IV medrol - inhaled bronchodilators - O2 to keep SpO2 >90% - nasal steroids - singulair - on empiric antibiotics - continue anticoagulation DR FLORES
--- NOTE | 2019-12-05 13:45 | PN ---
Progress Note, Physician History of Present Illness: pulmonary alert,still c/o sob,cough,nasal congestion - Current Medication List Current Medications: Active Medications Albuterol/Ipratropium (Duoneb -) 1 amp NEB RQID [facility] Last Admin: 12/05/19 08:24 Dose: 1 amp Documented by: Apixaban (Eliquis -) 2.5 mg PO BID [facility] Last Admin: 12/05/19 09:35 Dose: 2.5 mg Documented by: Aspirin (Ecotrin -) 81 mg PO DAILY [facility] Last Admin: 12/05/19 09:35 Dose: 81 mg Documented by: Atorvastatin Calcium (Lipitor -) 20 mg PO [facility] Last Admin: 12/04/19 21:30 Dose: 20 mg Documented by: Fluticasone Propionate (Flonase -) 2 spray NS BID [facility] Last Admin: 12/05/19 09:46 Dose: 2 sprays Documented by: Furosemide (Lasix Injection -) 40 mg IVPUSH DAILY [facility] Last Admin: 12/05/19 09:34 Dose: 40 mg Documented by: HCTZ/Losartan Potassium (Hyzaar -) 2 tab PO DAILY [facility] Last Admin: 12/05/19 09:35 Dose: 2 tab Documented by: Levofloxacin (Levaquin 500 Mg Premixed Ivpb -) 500 mg in 100 mls @ 100 mls/hr IVPB DAILY [facility]; Protocol Last Admin: 12/05/19 09:37 Dose: 100 mls/hr Documented by: Levetiracetam (Keppra -) 750 mg PO BID [facility] Last Admin: 12/05/19 09:35 Dose: 750 mg Documented by: Levothyroxine Sodium (Synthroid -) 25 mcg PO ACBK [facility] Last Admin: 12/05/19 06:14 Dose: 25 mcg Documented by: Loratadine (Claritin -) 10 mg PO DAILY [facility] Last Admin: 12/05/19 09:36 Dose: 10 mg Documented by: Meclizine HCl (Antivert -) 25 mg PO Q12H PRN PRN Reason: dizziness Methylprednisolone Sodium Succinate (Solu-Medrol -) 40 mg IVPUSH Q6H-IV [facility] Last Admin: 12/05/19 09:33 Dose: 40 mg Documented by: Montelukast Sodium (Singulair -) 10 mg PO [facility] Last Admin: 12/04/19 21:31 Dose: 10 mg Documented by: Pantoprazole Sodium (Protonix -) 40 mg PO DAILY [facility] Last Admin: 12/05/19 09:36 Dose: 40 mg Documented by: Sodium Chloride ([place] Nasal [place] -) 2 spray NS BID PRN PRN Reason: NASAL CONGESTION - Objective Vital Signs: Vital Signs Temperature 98.9 F 12/05/19 10:00 Pulse Rate 100 H 12/05/19 10:00 Respiratory Rate 18 12/05/19 10:00 Blood Pressure 125/65 12/05/19 10:00 O2 Sat by Pulse Oximetry (%) 98 12/04/19 21:00 Constitutional: Yes: Well Nourished, Calm Eyes: Yes: WNL HENT: Yes: WNL Neck: Yes: WNL Cardiovascular: Yes: Regular Rate and Rhythm, S1, S2 Respiratory: Yes: Wheezes (scattered bilateral wheezes) Gastrointestinal: Yes: Normal Bowel Sounds, Soft Extremities: Yes: WNL Edema: No Labs: CBC, BMP 12/05/19 05:20 12/05/19 11:54 INR, PTT INR 1.21 (0.83-1.09) H 12/03/19 12:56 Problem List - Problems (1) Asthma exacerbation Code(s): J45.901 - UNSPECIFIED ASTHMA WITH (ACUTE) EXACERBATION Qualifiers: Asthma severity: unspecified severity Asthma persistence: unspecified Qualified Code(s): J45.901 - Unspecified asthma with (acute) exacerbation (2) Productive cough Code(s): R05 - COUGH (3) Cough Code(s): R05 - COUGH (4) Wheezing Code(s): R06.2 - WHEEZING (5) DVT (deep venous thrombosis) Code(s): I82.409 - ACUTE EMBOLISM AND THOMBOS UNSP DEEP VN UNSP LOWER EXTREMITY Qualifiers: DVT location: lower extremity Chronicity: chronic (6) Hypertension Code(s): I10 - ESSENTIAL (PRIMARY) HYPERTENSION Qualifiers: Hypertension type: essential hypertension Qualified Code(s): I10 - Essential (primary) hypertension (7) Hypothyroidism Code(s): E03.9 - HYPOTHYROIDISM, UNSPECIFIED Qualifiers: Hypothyroidism type: unspecified Qualified Code(s): E03.9 - Hypothyroidism, unspecified (8) Moderate aortic stenosis Code(s): I35.0 - NONRHEUMATIC AORTIC (VALVE) STENOSIS Assessment/Plan Problem List - Problems (1) Asthma exacerbation Code(s): J45.901 - UNSPECIFIED ASTHMA WITH (ACUTE) EXACERBATION Qualifiers: Asthma severity: unspecified severity Asthma persistence: unspecified Qualified Code(s): J45.901 - Unspecified asthma with (acute) exacerbation Assessment/Plan Acute Asthma Exacerbation Seizure Disorder HTN Hyperlipidemia h/o DVT - IV medrol same dose - inhaled bronchodilators - O2 to keep SpO2 >90% - nasal steroids - singulair - empiric antibiotics - anticoagulation DR FLORES
--- NOTE | 2019-12-05 16:01 | HOSP ---
Subjective - Review of Symptoms Subjective: Patient fired previous provider. Saw the patient at bedside. She reports mild improvement in shortness of breath and states that she gets dizzy when she stands up. Reports heaviness in her cheeks, L > R. Stated that she received meclizine several months ago that worked for her. Patient has diffuse expiratory wheezes on exam. Continue management as per today's plan from previous provider. Will assume care for patient in the AM. For now monitor peak flow. Physical Examination Vital Signs: Vital Signs Temperature 98.1 F 12/05/19 14:00 Pulse Rate 101 H 12/05/19 14:00 Respiratory Rate 18 12/05/19 14:00 Blood Pressure 117/65 12/05/19 14:00 O2 Sat by Pulse Oximetry (%) 96 12/05/19 09:00 Labs: CBC, BMP 12/05/19 05:20 12/05/19 11:54 Visit type - Emergency Visit Emergency Visit: No - New Patient This patient is new to me today: Yes Date on this admission: 12/05/19 - Critical Care Critical Care patient: No
[2019-12-05] MEDS ORDERED: ALBUTEROL SO4 2.5/IPRATROPIUM 0.5 INH SOL 3 ML VIAL.NEB. NEB ONE (20:34)
[2019-12-05] MEDS: MONTELUKAST NA 10 MG TABLET PO SCH (21:43)
[2019-12-05] MEDS: ATORVASTATIN CA 20 MG TABLET (FP) PO SCH (21:44)
--- NOTE | 2019-12-05 23:43 | PN ---
Progress Note, Physician History of Present Illness: SEATED IN BED EATING DINNER BREATHING NON LABORED AFEBRILE, WBC ELEVATED ON STEROIDS - Current Medication List Current Medications: Active Medications Albuterol/Ipratropium (Duoneb -) 1 amp NEB RQID [facility] Last Admin: 12/05/19 20:19 Dose: 1 amp Documented by: Apixaban (Eliquis -) 2.5 mg PO BID [facility] Last Admin: 12/05/19 21:44 Dose: 2.5 mg Documented by: Aspirin (Ecotrin -) 81 mg PO DAILY [facility] Last Admin: 12/05/19 09:35 Dose: 81 mg Documented by: Atorvastatin Calcium (Lipitor -) 20 mg PO [facility] Last Admin: 12/05/19 21:44 Dose: 20 mg Documented by: Fluticasone Propionate (Flonase -) 2 spray NS BID [facility] Last Admin: 12/05/19 21:44 Dose: 2 sprays Documented by: Furosemide (Lasix Injection -) 40 mg IVPUSH DAILY [facility] Last Admin: 12/05/19 09:34 Dose: 40 mg Documented by: HCTZ/Losartan Potassium (Hyzaar -) 2 tab PO DAILY [facility] Last Admin: 12/05/19 09:35 Dose: 2 tab Documented by: Levofloxacin (Levaquin 500 Mg Premixed Ivpb -) 500 mg in 100 mls @ 100 mls/hr IVPB DAILY [facility]; Protocol Last Admin: 12/05/19 09:37 Dose: 100 mls/hr Documented by: Levetiracetam (Keppra -) 750 mg PO BID [facility] Last Admin: 12/05/19 21:43 Dose: 750 mg Documented by: Levothyroxine Sodium (Synthroid -) 25 mcg PO ACBK [facility] Last Admin: 12/05/19 06:14 Dose: 25 mcg Documented by: Loratadine (Claritin -) 10 mg PO DAILY [facility] Last Admin: 12/05/19 09:36 Dose: 10 mg Documented by: Meclizine HCl (Antivert -) 25 mg PO Q12H PRN PRN Reason: dizziness Methylprednisolone Sodium Succinate (Solu-Medrol -) 40 mg IVPUSH Q6H-IV [facility] Last Admin: 12/05/19 21:43 Dose: 40 mg Documented by: Montelukast Sodium (Singulair -) 10 mg PO [facility] Last Admin: 12/05/19 21:43 Dose: 10 mg Documented by: Pantoprazole Sodium (Protonix -) 40 mg PO DAILY [facility] Last Admin: 12/05/19 09:36 Dose: 40 mg Documented by: Sodium Chloride ([place] Nasal [place] -) 2 spray NS BID PRN PRN Reason: NASAL CONGESTION - Objective Vital Signs: Vital Signs Temperature 98.1 F 12/05/19 19:40 Pulse Rate 97 H 12/05/19 19:40 Respiratory Rate 18 12/05/19 14:00 Blood Pressure 111/56 L 12/05/19 19:40 O2 Sat by Pulse Oximetry (%) 96 12/05/19 09:00 Constitutional: Yes: Obese Cardiovascular: Yes: Regular Rate and Rhythm, S1, S2 Respiratory: Yes: Rhonchi, Wheezes Gastrointestinal: Yes: Normal Bowel Sounds, Abdomen, Obese Edema: Yes Labs: CBC, BMP 12/05/19 05:20 12/05/19 11:54 INR, PTT INR 1.21 (0.83-1.09) H 12/03/19 12:56 Assessment/Plan ACUTE EXACERBATION COPD R/O PNEUMONIA PCN ALLERGY AWAIT C/S CONTINUE EMPIRIC LEVAQUIN
[2019-12-06] MEDS: methylPREDNISolone NA SUCC 40 MG/1 ML VIAL IVPUSH SCH ×4 (03:00→21:40)
[2019-12-06] MEDS: LEVOTHYROXINE NA 25 MCG TABLET (FP) PO SCH (06:00)
[2019-12-06] MEDS: ALBUTEROL SO4 2.5/IPRATROPIUM 0.5 INH SOL 3 ML VIAL.NEB. NEB SCH ×4 (07:44→20:08)
[2019-12-06 08:42] LABS: HEMATOCRIT 40.7 % (32.4-45.2); HEMOGLOBIN 13.1 GM/dL (10.7-15.3); MCH 27.3 pg (25.7-33.7); MCHC 32.2 g/dl (32.0-36.0); MEAN PLT VOLUME 8.9 fl (7.5-11.1); PLATELET COUNT 291 K/MM3 (134-434); RBC 4.79 M/mm3 (3.60-5.2); WHITE BLOOD COUNT 15.5 K/mm3 (4.0-10.0)
[2019-12-06 09:20] LABS: BLOOD UREA NITROGEN 39.1 mg/dL (7-18); CALCIUM 9.2 mg/dL (8.5-10.1); CREATININE 1.3 mg/dL (0.55-1.3); POTASSIUM 4.1 mmol/L (3.5-5.1)
--- NOTE | 2019-12-06 09:38 | PN ---
Physical Exam: SUBJECTIVE: Patient seen and examined at bedside. Reports improvement in her breathing with continued wheezing and congestion in her nose and throat. OBJECTIVE: Vital Signs Period Temp Pulse Resp BP Sys/[place] Pulse Ox Last 24 Hr 98.1 F-98.9 F 91-101 17-18 105-140/49-65 95 GENERAL: A&Ox3, no acute distress LUNGS: diffuse wheezing noted bilaterally in upper and lower lobes of both lungs HEART: mildly tachycardic, no murmurs ABDOMEN: Soft, nontender, BS present MUSCULOSKELETAL: No CVA Tenderness EXTREMITIES: 2+ pulses, no edema. NEUROLOGICAL: Cranial nerves II-XII intact. Laboratory Results - last 24 hr 12/05/19 12/05/19 12/06/19 05:20 11:54 08:12 WBC 15.5 H RBC 4.79 Hgb 13.1 Hct 40.7 MCV 85.0 MCH 27.3 MCHC 32.2 RDW 16.0 H Plt Count 291 MPV 8.9 Neutrophils % (Manual) 90.0 H Band Neutrophils % 1.0 Lymphocytes % (Manual) 6.0 L D Monocytes % (Manual) 2 L D Eosinophils % (Manual) 0.0 Basophils % (Manual) 0.0 Myelocytes % (Man) 0 Promyelocytes % (Man) 0 Blast Cells % (Manual) 0 Nucleated RBC % 0 Metamyelocytes 0 Hypochromia 0 Platelet Estimate Normal Platelet Comment Present Polychromasia 1+ Poikilocytosis 1+ Anisocytosis 1+ Microcytosis 1+ Macrocytosis 0 Target Cells 1+ Ovalocytes 1+ Sodium 139 Potassium 3.9 Chloride 98 Carbon Dioxide 33 H Anion Gap 8 BUN 30.6 H Creatinine 1.1 Est GFR (CKD-EPI)AfAm 54.91 Est GFR (CKD-EPI)NonAf 47.38 Random Glucose 170 H Calcium 9.3 12/06/19 08:12 WBC RBC Hgb Hct MCV MCH MCHC RDW Plt Count MPV Neutrophils % (Manual) Band Neutrophils % Lymphocytes % (Manual) Monocytes % (Manual) Eosinophils % (Manual) Basophils % (Manual) Myelocytes % (Man) Promyelocytes % (Man) Blast Cells % (Manual) Nucleated RBC % Metamyelocytes Hypochromia Platelet Estimate Platelet Comment Polychromasia Poikilocytosis Anisocytosis Microcytosis Macrocytosis Target Cells Ovalocytes Sodium 138 Potassium 4.1 Chloride 98 Carbon Dioxide 33 H Anion Gap 7 L BUN 39.1 H Creatinine 1.3 Est GFR (CKD-EPI)AfAm 44.87 Est GFR (CKD-EPI)NonAf 38.71 Random Glucose 186 H Calcium 9.2 Active Medications Generic Name Dose Route Start Last Admin Trade Name Freq PRN Reason Stop Dose Admin Albuterol/Ipratropium 1 amp 12/03/19 20:00 12/06/19 07:44 Duoneb - NEB 1 amp RQID [facility] Administration Apixaban 2.5 mg 12/03/19 22:00 12/05/19 21:44 Eliquis - PO 2.5 mg BID [facility]UI[facility] Administration Aspirin 81 mg 12/04/19 10:00 12/05/19 09:35 Ecotrin - PO 81 mg DAILY [facility] Administration Atorvastatin Calcium 20 mg 12/03/19 22:00 12/05/19 21:44 Lipitor - PO 20 mg HS [facility] Administration Fluticasone Propionate 2 spray 12/04/19 13:45 12/05/19 21:44 Flonase - NS 2 sprays BID [facility] Administration Furosemide 40 mg 12/03/19 17:00 12/05/19 09:34 Lasix Injection - IVPUSH 40 mg DAILY [facility] Administration HCTZ/Losartan Potassium 2 tab 12/04/19 10:00 12/05/19 09:35 Hyzaar - PO 2 tab DAILY [facility] Administration Levofloxacin 500 mg in 100 mls @ 100 mls/hr 12/03/19 17:00 12/05/19 09:37 Levaquin 500 Mg Premixed Ivpb - IVPB 100 mls/hr DAILY [facility] Administration Protocol Levetiracetam 750 mg 12/03/19 22:00 12/05/19 21:43 Keppra - PO 750 mg BID [facility] Administration Levothyroxine Sodium 25 mcg 12/04/19 07:00 12/06/19 06:00 Synthroid - PO 25 mcg ACBK [facility] Administration Loratadine 10 mg 12/05/19 10:00 12/05/19 09:36 Claritin - PO 10 mg DAILY [facility] Administration Meclizine HCl 25 mg 12/03/19 17:07 Antivert - PO Q12H PRN dizziness Methylprednisolone Sodium Succinate 40 mg 12/03/19 17:00 12/06/19 03:00 Solu-Medrol - IVPUSH 40 mg Q6H-IV [facility] Administration Montelukast Sodium 10 mg 12/03/19 22:00 12/05/19 21:43 Singulair - PO 10 mg HS [facility] Administration Pantoprazole Sodium 40 mg 12/04/19 10:00 12/05/19 09:36 Protonix - PO 40 mg DAILY [facility] Administration Sodium Chloride 2 spray 12/04/19 16:58 [place] Nasal [place] - NS BID PRN NASAL CONGESTION ASSESSMENT/PLAN: 79 year old female history of asthma, hypertension, hyperlipidemia, hypothyroidism, h/o DVT, seizure disorder admitted for asthma exacerbation #Asthma Exacerbation: appears to be improving, yet patient is wheezing on exam -continue solumedrol 40q6h -continue duonebs -levaquin 500mg day 4 -continue singulair -encouraged peak flow measurement #Dizziness: mildly improved from yesterday -continue meclizine -encouraged patient only to walk with assistance #Hypertension -Not on medication #Hyperlipidemia -continue atorvastatin 20 #Hypothyroidism -continue synthroid 25 mcg #Hx DVT -continue eliquis 2.5 BID #Seizure Disorder -continue keppra 750 BID #FEN -no standing fluids -replete lytes as necessary in AM -diet ordered #Prophylaxis -on eliquis #Disposition -continue to monitor on med surg, anticipate DC in 48 hours Visit type - Emergency Visit Emergency Visit: No - New Patient This patient is new to me today: No - Critical Care Critical Care patient: No ATTENDING PHYSICIAN STATEMENT I saw and evaluated the patient. I reviewed the resident's note and discussed the case with the resident. I agree with the resident's findings and plan as documented. SUBJECTIVE: OBJECTIVE: ASSESSMENT AND PLAN:
[2019-12-06] MEDS ORDERED: PT OWN MED DRAWER 7, Y5N ONE (10:42)
[2019-12-06] MEDS: FUROSEMIDE 40 MG/4 ML INJECTABLE VIAL IVPUSH SCH (10:54)
[2019-12-06] MEDS: MECLIZINE HCL 25 MG TABLET (FP) PO PRN (10:58)
[2019-12-06] MEDS: levETIRAcetam 500 MG TABLET (FP) PO SCH ×2 (10:58→21:38)
[2019-12-06] MEDS: PANTOPRAZOLE 40 MG TABLET PO SCH (10:58)
[2019-12-06] MEDS: LORATADINE 10 MG TABLET PO SCH (10:58)
[2019-12-06] MEDS: ASPIRIN COATED 81 MG TABLET.EC PO SCH (11:07)
[2019-12-06] MEDS: APIXABAN 2.5 MG TABLET PO SCH ×2 (11:08→21:38)
[2019-12-06] MEDS: FLUTICASONE PROP 0.05% 16 GM NASAL SPRAY NS SCH ×2 (11:08→21:40)
[2019-12-06] MEDS: LOSARTAN 50MG/HCTZ 12.5MG 1 TAB (FP) PO SCH (11:09)
--- NOTE | 2019-12-06 13:13 | PN ---
Progress Note, Physician History of Present Illness: pulmonary alert,still congested,+ cough - Current Medication List Current Medications: Active Medications Albuterol/Ipratropium (Duoneb -) 1 amp NEB RQID [facility] Last Admin: 12/06/19 11:17 Dose: Not Given Documented by: Apixaban (Eliquis -) 2.5 mg PO BID [facility] Last Admin: 12/06/19 11:08 Dose: 2.5 mg Documented by: Aspirin (Ecotrin -) 81 mg PO DAILY [facility] Last Admin: 12/06/19 11:07 Dose: 81 mg Documented by: Atorvastatin Calcium (Lipitor -) 20 mg PO HS [facility] Last Admin: 12/05/19 21:44 Dose: 20 mg Documented by: Fluticasone Propionate (Flonase -) 2 spray NS BID [facility] Last Admin: 12/06/19 11:08 Dose: 2 sprays Documented by: Furosemide (Lasix Injection -) 40 mg IVPUSH DAILY [facility] Last Admin: 12/06/19 10:54 Dose: 40 mg Documented by: HCTZ/Losartan Potassium (Hyzaar -) 2 tab PO DAILY [facility] Last Admin: 12/06/19 11:09 Dose: 2 tab Documented by: Levofloxacin (Levaquin 500 Mg Premixed Ivpb -) 500 mg in 100 mls @ 100 mls/hr IVPB DAILY [facility]; Protocol Last Admin: 12/06/19 10:54 Dose: 100 mls/hr Documented by: Levetiracetam (Keppra -) 750 mg PO BID [facility] Last Admin: 12/06/19 10:58 Dose: 750 mg Documented by: Levothyroxine Sodium (Synthroid -) 25 mcg PO ACBK [facility] Last Admin: 12/06/19 06:00 Dose: 25 mcg Documented by: Loratadine (Claritin -) 10 mg PO DAILY [facility] Last Admin: 12/06/19 10:58 Dose: 10 mg Documented by: Meclizine HCl (Antivert -) 25 mg PO Q12H PRN PRN Reason: dizziness Last Admin: 12/06/19 10:58 Dose: 25 mg Documented by: Methylprednisolone Sodium Succinate (Solu-Medrol -) 40 mg IVPUSH Q6H-IV [facility] Last Admin: 12/06/19 10:58 Dose: 40 mg Documented by: Montelukast Sodium (Singulair -) 10 mg PO HS [facility] Last Admin: 12/05/19 21:43 Dose: 10 mg Documented by: Pantoprazole Sodium (Protonix -) 40 mg PO DAILY [facility] Last Admin: 12/06/19 10:58 Dose: 40 mg Documented by: Sodium Chloride ([place] Nasal [place] -) 2 spray NS BID PRN PRN Reason: NASAL CONGESTION - Objective Vital Signs: Vital Signs Temperature 98.5 F 12/06/19 07:18 Pulse Rate 91 H 12/06/19 07:18 Respiratory Rate 17 12/06/19 07:18 Blood Pressure 140/65 12/06/19 07:18 O2 Sat by Pulse Oximetry (%) 95 12/05/19 21:00 Constitutional: Yes: Well Nourished, Calm, Other (dyspneic) Eyes: Yes: WNL HENT: Yes: WNL Neck: Yes: WNL Cardiovascular: Yes: Regular Rate and Rhythm, S1, S2 Respiratory: Yes: Rhonchi, Wheezes (bilateral wheezes and rhonchi) Gastrointestinal: Yes: Normal Bowel Sounds, Soft Extremities: Yes: WNL Edema: No Labs: CBC, BMP 12/06/19 08:12 12/06/19 08:12 INR, PTT INR 1.21 (0.83-1.09) H 12/03/19 12:56 Problem List - Problems (1) Asthma exacerbation Code(s): J45.901 - UNSPECIFIED ASTHMA WITH (ACUTE) EXACERBATION Qualifiers: Asthma severity: unspecified severity Asthma persistence: unspecified Qualified Code(s): J45.901 - Unspecified asthma with (acute) exacerbation (2) Productive cough Code(s): R05 - COUGH (3) Cough Code(s): R05 - COUGH (4) Wheezing Code(s): R06.2 - WHEEZING (5) DVT (deep venous thrombosis) Code(s): I82.409 - ACUTE EMBOLISM AND THOMBOS UNSP DEEP VN UNSP LOWER EXTREMITY Qualifiers: DVT location: lower extremity Chronicity: chronic (6) Hypertension Code(s): I10 - ESSENTIAL (PRIMARY) HYPERTENSION Qualifiers: Hypertension type: essential hypertension Qualified Code(s): I10 - Essential (primary) hypertension (7) Hypothyroidism Code(s): E03.9 - HYPOTHYROIDISM, UNSPECIFIED Qualifiers: Hypothyroidism type: unspecified Qualified Code(s): E03.9 - Hypothyroidism, unspecified (8) Moderate aortic stenosis Code(s): I35.0 - NONRHEUMATIC AORTIC (VALVE) STENOSIS Assessment/Plan Problem List - Problems (1) Asthma exacerbation Code(s): J45.901 - UNSPECIFIED ASTHMA WITH (ACUTE) EXACERBATION Qualifiers: Asthma severity: unspecified severity Asthma persistence: unspecified Qualified Code(s): J45.901 - Unspecified asthma with (acute) exacerbation Assessment/Plan Acute Asthma Exacerbation Seizure Disorder HTN Hyperlipidemia h/o DVT - IV medrol same dose - inhaled bronchodilators - O2 to keep SpO2 >90% - nasal steroids - singulair - empiric antibiotics - anticoagulation - cough meds DR FLORES
--- NOTE | 2019-12-06 14:59 | PN ---
Teaching Attending Note Name of Resident: Felice Cline ATTENDING PHYSICIAN STATEMENT I saw and evaluated the patient. I reviewed the resident's note and discussed the case with the resident. I agree with the resident's findings and plan as documented. SUBJECTIVE: Patient states shes still having SOB but improved compared to yesterday OBJECTIVE: GENERAL: alert and oriented in no acute distress CVS: S1 S2 RRR Lungs: wheezing b/l ABDOMEN: Soft, nontender, +BS EXTREMITIES: no cyanosis or edema ASSESSMENT AND PLAN: 79 yo F w/ PMH of Asthma, epilepsy, HTN, b/l LE dvt presents w/ SOB # SOB 2/2 Acute on chronic asthma exacerbation r/o possible PNA in setting of cough productive of sputum - c/w IV solumedrol - taper - seen by pulmonary appreciate recs - nebs prn - inhaled steroids - c/w Levofloxacin - strep and legionella negative, influenza negative - f/u procal - d/c lasix - mild elevated BNP in setting of asthma exacerbation- no crackles appreciated on exam # epilepsy - c/w home dose keppra # c/w rest of chronic home meds # dvt ppx: on eliquis for hx of b/l DVT
[2019-12-06] MEDS: MONTELUKAST NA 10 MG TABLET PO SCH (21:38)
[2019-12-06] MEDS: ATORVASTATIN CA 20 MG TABLET (FP) PO SCH (21:38)
[2019-12-07] MEDS: methylPREDNISolone NA SUCC 40 MG/1 ML VIAL IVPUSH SCH ×4 (02:14→21:10)
[2019-12-07] MEDS: LEVOTHYROXINE NA 25 MCG TABLET (FP) PO SCH (06:04)
[2019-12-07] MEDS: ALBUTEROL SO4 2.5/IPRATROPIUM 0.5 INH SOL 3 ML VIAL.NEB. NEB SCH ×4 (07:30→19:45)
[2019-12-07 08:20] LABS: HEMATOCRIT 44.7 % (32.4-45.2); HEMOGLOBIN 14.4 GM/dL (10.7-15.3); MCH 27.5 pg (25.7-33.7); MCHC 32.3 g/dl (32.0-36.0); MEAN CELL VOLUME 84.9 fl (80-96); MEAN PLT VOLUME 8.9 fl (7.5-11.1); PLATELET COUNT 297 K/MM3 (134-434); RBC 5.26 M/mm3 (3.60-5.2); RDW 16.2 % (11.6-15.6); WHITE BLOOD COUNT 15.9 K/mm3 (4.0-10.0)
[2019-12-07 08:39] LABS: BLOOD UREA NITROGEN 40.3 mg/dL (7-18); CALCIUM 9.4 mg/dL (8.5-10.1); CREATININE 1.3 mg/dL (0.55-1.3); POTASSIUM 5.4 mmol/L (3.5-5.1)
[2019-12-07] MEDS ORDERED: PT OWN MED DRAWER 7, Y5N ONE (09:31)
[2019-12-07] MEDS: APIXABAN 2.5 MG TABLET PO SCH ×2 (09:38→21:10)
[2019-12-07] MEDS: LOSARTAN 50MG/HCTZ 12.5MG 1 TAB (FP) PO SCH (09:38)
[2019-12-07] MEDS: PANTOPRAZOLE 40 MG TABLET PO SCH (09:38)
[2019-12-07] MEDS: LORATADINE 10 MG TABLET PO SCH (09:39)
[2019-12-07] MEDS: levETIRAcetam 500 MG TABLET (FP) PO SCH ×2 (09:39→21:10)
[2019-12-07] MEDS: ASPIRIN COATED 81 MG TABLET.EC PO SCH (09:39)
[2019-12-07] MEDS: FLUTICASONE PROP 0.05% 16 GM NASAL SPRAY NS SCH ×2 (10:17→21:13)
[2019-12-07] MEDS: MECLIZINE HCL 25 MG TABLET (FP) PO PRN (11:38)
[2019-12-07] MEDS: ACETAMINOPHEN 325 MG TABLET (FP) PO PRN (11:38)
[2019-12-07] MEDS ORDERED: SODIUM CHLORIDE 500 ML IV SCH (12:15)
--- NOTE | 2019-12-07 12:59 | PN ---
Progress Note (short form) - Note Progress Note: PULMONARY Still with nasal congestion, shortness of breath, wheezing. Vital Signs Period Temp Pulse Resp BP Sys/[place] Pulse Ox Last 24 Hr 97.8 F-98.1 F 83-99 18-20 115-131/51-58 Gen: ill appearing Heart: RRR Lung: bilateral rhonchi, wheezes Abd: soft, nontender Ext: no edema CBC, BMP 12/07/19 07:58 12/07/19 07:58 Active Medications Acetaminophen (Tylenol -) 650 mg PO Q6H PRN PRN Reason: HEADACHE Last Admin: 12/07/19 11:38 Dose: 650 mg Documented by: Albuterol/Ipratropium (Duoneb -) 1 amp NEB RQID [facility] Last Admin: 12/07/19 11:25 Dose: 1 amp Documented by: Apixaban (Eliquis -) 2.5 mg PO BID [facility] Last Admin: 12/07/19 09:38 Dose: 2.5 mg Documented by: Aspirin (Ecotrin -) 81 mg PO DAILY [facility] Last Admin: 12/07/19 09:39 Dose: 81 mg Documented by: Atorvastatin Calcium (Lipitor -) 20 mg PO HS [facility] Last Admin: 12/06/19 21:38 Dose: 20 mg Documented by: Fluticasone Propionate (Flonase -) 2 spray NS BID [facility] Last Admin: 12/07/19 10:17 Dose: 2 sprays Documented by: Guaifenesin/Codeine Phosphate (Robitussin Ac -) 5 ml PO TID PRN PRN Reason: COUGH HCTZ/Losartan Potassium (Hyzaar -) 2 tab PO DAILY [facility] Last Admin: 12/07/19 09:38 Dose: 2 tab Documented by: Levofloxacin (Levaquin 500 Mg Premixed Ivpb -) 500 mg in 100 mls @ 100 mls/hr IVPB DAILY [facility]; Protocol Last Admin: 12/07/19 09:45 Dose: 100 mls/hr Documented by: Sodium Chloride (Normal Saline -) 500 mls @ 83 mls/hr IV ASDIR [facility] Stop: 12/07/19 18:17 Levetiracetam (Keppra -) 750 mg PO BID [facility] Last Admin: 12/07/19 09:39 Dose: 750 mg Documented by: Levothyroxine Sodium (Synthroid -) 25 mcg PO ACBK [facility] Last Admin: 12/07/19 06:04 Dose: 25 mcg Documented by: Loratadine (Claritin -) 10 mg PO DAILY [facility] Last Admin: 12/07/19 09:39 Dose: 10 mg Documented by: Meclizine HCl (Antivert -) 25 mg PO Q12H PRN PRN Reason: dizziness Last Admin: 12/07/19 11:38 Dose: 25 mg Documented by: Methylprednisolone Sodium Succinate (Solu-Medrol -) 40 mg IVPUSH Q6H-IV [facility] Last Admin: 12/07/19 09:40 Dose: 40 mg Documented by: Montelukast Sodium (Singulair -) 10 mg PO HS [facility] Last Admin: 12/06/19 21:38 Dose: 10 mg Documented by: Pantoprazole Sodium (Protonix -) 40 mg PO DAILY [facility] Last Admin: 12/07/19 09:38 Dose: 40 mg Documented by: Sodium Chloride ([place] Nasal [place] -) 2 spray NS BID PRN PRN Reason: NASAL CONGESTION A/P Acute Asthma Exacerbation Seizure Disorder HTN Hyperlipidemia h/o DVT - continue medrol - inhaled bronchodilators - will add LABA - O2 to keep SpO2 >90% - nasal steroids - singulair - on empiric antibiotics - continue anticoagulation Problem List - Problems (1) Asthma exacerbation Code(s): J45.901 - UNSPECIFIED ASTHMA WITH (ACUTE) EXACERBATION Qualifiers: Asthma severity: unspecified severity Asthma persistence: unspecified Qualified Code(s): J45.901 - Unspecified asthma with (acute) exacerbation
--- NOTE | 2019-12-07 15:22 | PN ---
<Felice Cline - Last Filed: 12/07/19 15:23> Physical Exam: SUBJECTIVE: Patient seen and examined OBJECTIVE: Vital Signs Period Temp Pulse Resp BP Sys/[place]on Pulse Ox Last 24 Hr 97.8 F-98.1 F 83-102 18-20 106-131/51-58 GENERAL: A&Ox3, no acute distress LUNGS: diffuse wheezing noted bilaterally in upper and lower lobes of both lungs HEART: mildly tachycardic, no murmurs ABDOMEN: Soft, nontender, BS present Laboratory Results - last 24 hr 12/07/19 12/07/19 07:58 07:58 WBC 15.9 H RBC 5.26 H Hgb 14.4 Hct 44.7 MCV 84.9 MCH 27.5 MCHC 32.3 RDW 16.2 H Plt Count 297 MPV 8.9 Sodium 139 Potassium 5.4 H Chloride 97 L Carbon Dioxide 32 Anion Gap 11 BUN 40.3 H Creatinine 1.3 Est GFR (CKD-EPI)AfAm 44.87 Est GFR (CKD-EPI)NonAf 38.71 Random Glucose 230 H Calcium 9.4 Active Medications Generic Name Dose Route Start Last Admin Trade Name Freq PRN Reason Stop Dose Admin Acetaminophen 650 mg 12/07/19 09:14 12/07/19 11:38 Tylenol - PO 650 mg Q6H PRN Administration HEADACHE Albuterol/Ipratropium 1 amp 12/03/19 20:00 12/07/19 15:13 Duoneb - NEB 1 amp RQID LUIZA Administration Apixaban 2.5 mg 12/03/19 22:00 12/07/19 09:38 Eliquis - PO 2.5 mg BID LUIZA Administration Aspirin 81 mg 12/04/19 10:00 12/07/19 09:39 Ecotrin - PO 81 mg DAILY LUIZA Administration Atorvastatin Calcium 20 mg 12/03/19 22:00 12/06/19 21:38 Lipitor - PO 20 mg HS LUIZA Administration Budesonide/Formoterol Fumarate 2 puff 12/07/19 22:00 Symbicort 160/4.5mcg - IH BID LUIZA Fluticasone Propionate 2 spray 12/04/19 13:45 12/07/19 10:17 Flonase - NS 2 sprays BID LUIZA Administration Guaifenesin/Codeine Phosphate 5 ml 12/06/19 13:36 Robitussin Ac - PO TID PRN COUGH HCTZ/Losartan Potassium 2 tab 12/04/19 10:00 12/07/19 09:38 Hyzaar - PO 2 tab DAILY LUIZA Administration Levofloxacin 500 mg in 100 mls @ 100 mls/hr 12/03/19 17:00 12/07/19 09:45 Levaquin 500 Mg Premixed Ivpb - IVPB 100 mls/hr DAILY LUIZA Administration Protocol Sodium Chloride 500 mls @ 83 mls/hr 12/07/19 12:15 Normal Saline - IV 12/07/19 18:17 ASDIR LUIZA Levetiracetam 750 mg 12/03/19 22:00 12/07/19 09:39 Keppra - PO 750 mg BID LUIZA Administration Levothyroxine Sodium 25 mcg 12/04/19 07:00 12/07/19 06:04 Synthroid - PO 25 mcg ACBK LUIZA Administration Loratadine 10 mg 12/05/19 10:00 12/07/19 09:39 Claritin - PO 10 mg DAILY LUIZA Administration Meclizine HCl 25 mg 12/03/19 17:07 12/07/19 11:38 Antivert - PO 25 mg Q12H PRN Administration dizziness Methylprednisolone Sodium Succinate 40 mg 12/03/19 17:00 12/07/19 09:40 Solu-Medrol - IVPUSH 40 mg Q6H-IV LUIZA Administration Montelukast Sodium 10 mg 12/03/19 22:00 12/06/19 21:38 Singulair - PO 10 mg HS LUIZA Administration Pantoprazole Sodium 40 mg 12/04/19 10:00 12/07/19 09:38 Protonix - PO 40 mg DAILY LUIZA Administration Sodium Chloride 2 spray 12/04/19 16:58 [place] Nasal [place] - NS BID PRN NASAL CONGESTION ASSESSMENT/PLAN: 79 year old female history of asthma, hypertension, hyperlipidemia, hypothyroidism, h/o DVT, seizure disorder admitted for asthma exacerbation #Asthma Exacerbation: appears to be improving, yet patient is wheezing on exam -continue solumedrol 40q6h -continue duonebs -levaquin 500mg day 5 -continue singulair -encouraged peak flow measurement -following pulm recommendations #Dizziness: mildly improved from yesterday -continue meclizine -encouraged patient only to walk with assistance #Hypertension -Not on medication #Hyperlipidemia -continue atorvastatin 20 #Hypothyroidism -continue synthroid 25 mcg #Hx DVT -continue eliquis 2.5 BID #Seizure Disorder -continue keppra 750 BID #FEN -no standing fluids -replete lytes as necessary in AM -diet ordered #Prophylaxis -on eliquis #Disposition -continue to monitor on med surg, anticipate DC in 48 hours Visit type - Emergency Visit Emergency Visit: No - New Patient This patient is new to me today: No - Critical Care Critical Care patient: No ATTENDING PHYSICIAN STATEMENT I saw and evaluated the patient. I reviewed the resident's note and discussed the case with the resident. I agree with the resident's findings and plan as documented. SUBJECTIVE: OBJECTIVE: ASSESSMENT AND PLAN: <Mary Sood - Last Filed: 12/07/19 15:30> Physical Exam: SUBJECTIVE: Patient seen and examined OBJECTIVE: Vital Signs Period Temp Pulse Resp BP Sys/[place] Pulse Ox Last 24 Hr 97.8 F-98.1 F 83-102 18-20 106-131/51-58 GENERAL: The patient is awake, alert, and fully oriented, in no acute distress. HEAD: Normal with no signs of trauma. EYES: PERRL, extraocular movements intact, sclera anicteric, conjunctiva clear. No ptosis. ENT: Ears normal, nares patent, oropharynx clear without exudates, moist mucous membranes. NECK: Trachea midline, full range of motion, supple. LUNGS: Breath sounds equal, clear to auscultation bilaterally, no wheezes, no crackles, no accessory muscle use. HEART: Regular rate and rhythm, S1, S2 without murmur, rub or gallop. ABDOMEN: Soft, nontender, nondistended, normoactive bowel sounds, no guarding, no rebound, no hepatosplenomegaly, no masses. EXTREMITIES: 2+ pulses, warm, well-perfused, no edema. NEUROLOGICAL: Cranial nerves II through XII grossly intact. Normal speech, gait not observed. PSYCH: Normal mood, normal affect. SKIN: Warm, dry, normal turgor, no rashes or lesions noted Laboratory Results - last 24 hr 12/07/19 12/07/19 07:58 07:58 WBC 15.9 H RBC 5.26 H Hgb 14.4 Hct 44.7 MCV 84.9 MCH 27.5 MCHC 32.3 RDW 16.2 H Plt Count 297 MPV 8.9 Sodium 139 Potassium 5.4 H Chloride 97 L Carbon Dioxide 32 Anion Gap 11 BUN 40.3 H Creatinine 1.3 Est GFR (CKD-EPI)AfAm 44.87 Est GFR (CKD-EPI)NonAf 38.71 Random Glucose 230 H Calcium 9.4 Active Medications Generic Name Dose Route Start Last Admin Trade Name Freq PRN Reason Stop Dose Admin Acetaminophen 650 mg 12/07/19 09:14 12/07/19 11:38 Tylenol - PO 650 mg Q6H PRN Administration HEADACHE Albuterol/Ipratropium 1 amp 12/03/19 20:00 12/07/19 15:13 Duoneb - NEB 1 amp RQID LUIZA Administration Apixaban 2.5 mg 12/03/19 22:00 12/07/19 09:38 Eliquis - PO 2.5 mg BID LUIZA Administration Aspirin 81 mg 12/04/19 10:00 12/07/19 09:39 Ecotrin - PO 81 mg DAILY LUIZA Administration Atorvastatin Calcium 20 mg 12/03/19 22:00 12/06/19 21:38 Lipitor - PO 20 mg HS LUIZA Administration Budesonide/Formoterol Fumarate 2 puff 12/07/19 22:00 Symbicort 160/4.5mcg - IH BID LUIZA Fluticasone Propionate 2 spray 12/04/19 13:45 12/07/19 10:17 Flonase - NS 2 sprays BID LUIZA Administration Guaifenesin/Codeine Phosphate 5 ml 12/06/19 13:36 Robitussin Ac - PO TID PRN COUGH HCTZ/Losartan Potassium 2 tab 12/04/19 10:00 12/07/19 09:38 Hyzaar - PO 2 tab DAILY LUIZA Administration Levofloxacin 500 mg in 100 mls @ 100 mls/hr 12/03/19 17:00 12/07/19 09:45 Levaquin 500 Mg Premixed Ivpb - IVPB 100 mls/hr DAILY LUIZA Administration Protocol Sodium Chloride 500 mls @ 83 mls/hr 12/07/19 12:15 Normal Saline - IV 12/07/19 18:17 ASDIR LUIZA Levetiracetam 750 mg 12/03/19 22:00 12/07/19 09:39 Keppra - PO 750 mg BID LUIZA Administration Levothyroxine Sodium 25 mcg 12/04/19 07:00 12/07/19 06:04 Synthroid - PO 25 mcg ACBK LUIZA Administration Loratadine 10 mg 12/05/19 10:00 12/07/19 09:39 Claritin - PO 10 mg DAILY LUIZA Administration Meclizine HCl 25 mg 12/03/19 17:07 12/07/19 11:38 Antivert - PO 25 mg Q12H PRN Administration dizziness Methylprednisolone Sodium Succinate 40 mg 12/03/19 17:00 12/07/19 09:40 Solu-Medrol - IVPUSH 40 mg Q6H-IV LUIZA Administration Montelukast Sodium 10 mg 12/03/19 22:00 12/06/19 21:38 Singulair - PO 10 mg HS LUIZA Administration Pantoprazole Sodium 40 mg 12/04/19 10:00 12/07/19 09:38 Protonix - PO 40 mg DAILY LUIZA Administration Sodium Chloride 2 spray 12/04/19 16:58 [place] Nasal [place] - NS BID PRN NASAL CONGESTION ASSESSMENT/PLAN: ATTENDING PHYSICIAN STATEMENT I saw and evaluated the patient. I reviewed the resident's note and discussed the case with the resident. I agree with the resident's findings and plan as documented. SUBJECTIVE: Patient continues to have ongoing SOB and wheezing OBJECTIVE: GENERAL: alert and oriented in no acute distress CVS: S1 S2 RRR Lungs: wheezing b/l ABDOMEN: Soft, nontender, +BS EXTREMITIES: no cyanosis or edema ASSESSMENT AND PLAN: 79 yo F w/ PMH of Asthma, epilepsy, HTN, b/l LE dvt presents w/ SOB # SOB 2/2 Acute on chronic asthma exacerbation r/o possible PNA in setting of cough productive of sputum - c/w IV solumedrol - taper - followed by pulmonary appreciate recs - nebs prn, +LABA - inhaled steroids - c/w Levofloxacin - strep and legionella negative, influenza negative - f/u procal #mild LUCIANA - monitor creat - gentle hydration - lasix discontinued yesterday # epilepsy - c/w home dose keppra # c/w rest of chronic home meds # dvt ppx: on eliquis for hx of b/l DVT
[2019-12-07] MEDS: ATORVASTATIN CA 20 MG TABLET (FP) PO SCH (21:10)
[2019-12-07] MEDS: MONTELUKAST NA 10 MG TABLET PO SCH (21:10)
[2019-12-07] MEDS: guaiFENesin/CODEINE 5 ML UNIT-DOSE CUPS PO PRN (21:10)
[2019-12-07] MEDS: BUDESONIDE/FORMETEROL FUMARATE 160/4.5 mcg INHALER IH SCH (21:14)
[2019-12-08] MEDS: methylPREDNISolone NA SUCC 40 MG/1 ML VIAL IVPUSH SCH ×4 (02:14→21:44)
[2019-12-08] MEDS: LEVOTHYROXINE NA 25 MCG TABLET (FP) PO SCH (06:06)
[2019-12-08] MEDS: ALBUTEROL SO4 2.5/IPRATROPIUM 0.5 INH SOL 3 ML VIAL.NEB. NEB SCH ×3 (08:00→16:00)
[2019-12-08 08:53] LABS: HEMATOCRIT 41.1 % (32.4-45.2); HEMOGLOBIN 13.2 GM/dL (10.7-15.3); MCH 27.2 pg (25.7-33.7); MEAN CELL VOLUME 84.7 fl (80-96); MEAN PLT VOLUME 9.5 fl (7.5-11.1); PLATELET COUNT 261 K/MM3 (134-434); RBC 4.85 M/mm3 (3.60-5.2); WHITE BLOOD COUNT 15.6 K/mm3 (4.0-10.0)
[2019-12-08 09:17] LABS: BLOOD UREA NITROGEN 38.8 mg/dL (7-18); CALCIUM 8.6 mg/dL (8.5-10.1); POTASSIUM 4.9 mmol/L (3.5-5.1)
[2019-12-08] MEDS: ASPIRIN COATED 81 MG TABLET.EC PO SCH (09:30)
[2019-12-08] MEDS: ACETAMINOPHEN 325 MG TABLET (FP) PO PRN ×2 (09:31→19:13)
[2019-12-08] MEDS: MECLIZINE HCL 25 MG TABLET (FP) PO PRN (09:31)
[2019-12-08] MEDS: levETIRAcetam 500 MG TABLET (FP) PO SCH ×2 (09:32→21:43)
[2019-12-08] MEDS: LORATADINE 10 MG TABLET PO SCH (09:33)
[2019-12-08] MEDS: FLUTICASONE PROP 0.05% 16 GM NASAL SPRAY NS SCH ×2 (09:35→21:44)
[2019-12-08] MEDS: LOSARTAN 50MG/HCTZ 12.5MG 1 TAB (FP) PO SCH (09:35)
[2019-12-08] MEDS: APIXABAN 2.5 MG TABLET PO SCH ×2 (09:35→21:44)
[2019-12-08] MEDS: PANTOPRAZOLE 40 MG TABLET PO SCH (10:55)
[2019-12-08] MEDS: BUDESONIDE/FORMETEROL FUMARATE 160/4.5 mcg INHALER IH SCH ×2 (10:59→21:45)
--- NOTE | 2019-12-08 14:32 | PN ---
Progress Note, Physician History of Present Illness: pulmonary alert,still congested ,+ cough,agitated - Current Medication List Current Medications: Active Medications Acetaminophen (Tylenol -) 650 mg PO Q6H PRN PRN Reason: HEADACHE Last Admin: 12/08/19 09:31 Dose: 650 mg Documented by: Albuterol/Ipratropium (Duoneb -) 1 amp NEB RQID [facility] Last Admin: 12/08/19 12:29 Dose: 1 amp Documented by: Apixaban (Eliquis -) 2.5 mg PO BID [facility] Last Admin: 12/08/19 09:35 Dose: 2.5 mg Documented by: Aspirin (Ecotrin -) 81 mg PO DAILY [facility] Last Admin: 12/08/19 09:30 Dose: 81 mg Documented by: Atorvastatin Calcium (Lipitor -) 20 mg PO HS [facility] Last Admin: 12/07/19 21:10 Dose: 20 mg Documented by: Budesonide/Formoterol Fumarate (Symbicort 160/4.5mcg -) 2 puff IH BID [facility] Last Admin: 12/07/19 21:14 Dose: 2 puff Documented by: Fluticasone Propionate (Flonase -) 2 spray NS BID [facility] Last Admin: 12/08/19 09:35 Dose: 2 sprays Documented by: Guaifenesin/Codeine Phosphate (Robitussin Ac -) 5 ml PO TID PRN PRN Reason: COUGH Last Admin: 12/07/19 21:10 Dose: 5 ml Documented by: HCTZ/Losartan Potassium (Hyzaar -) 2 tab PO DAILY [facility] Last Admin: 12/08/19 09:35 Dose: 2 tab Documented by: Levofloxacin (Levaquin 500 Mg Premixed Ivpb -) 500 mg in 100 mls @ 100 mls/hr IVPB DAILY [facility]; Protocol Last Admin: 12/08/19 09:23 Dose: 100 mls/hr Documented by: Levetiracetam (Keppra -) 750 mg PO BID [facility] Last Admin: 12/08/19 09:32 Dose: 750 mg Documented by: Levothyroxine Sodium (Synthroid -) 25 mcg PO ACBK [facility] Last Admin: 12/08/19 06:06 Dose: 25 mcg Documented by: Loratadine (Claritin -) 10 mg PO DAILY [facility] Last Admin: 12/08/19 09:33 Dose: 10 mg Documented by: Meclizine HCl (Antivert -) 25 mg PO Q12H PRN PRN Reason: dizziness Last Admin: 12/08/19 09:31 Dose: 25 mg Documented by: Methylprednisolone Sodium Succinate (Solu-Medrol -) 40 mg IVPUSH Q6H-IV [facility] Last Admin: 12/08/19 09:33 Dose: 40 mg Documented by: Montelukast Sodium (Singulair -) 10 mg PO HS [facility] Last Admin: 12/07/19 21:10 Dose: 10 mg Documented by: Pantoprazole Sodium (Protonix -) 40 mg PO DAILY [facility] Last Admin: 12/07/19 09:38 Dose: 40 mg Documented by: Sodium Chloride ([place] Nasal [place] -) 2 spray NS BID PRN PRN Reason: NASAL CONGESTION - Objective Vital Signs: Vital Signs Temperature 97.8 F 12/08/19 05:25 Pulse Rate 77 12/08/19 05:25 Respiratory Rate 18 12/08/19 05:25 Blood Pressure 115/58 L 12/08/19 05:25 O2 Sat by Pulse Oximetry (%) 95 12/05/19 21:00 Constitutional: Yes: Well Nourished, Other (agitated) Eyes: Yes: WNL HENT: Yes: WNL Neck: Yes: WNL Cardiovascular: Yes: Regular Rate and Rhythm, S1, S2 Respiratory: Yes: Rhonchi (scattered rhonchi) Gastrointestinal: Yes: Normal Bowel Sounds, Soft Extremities: Yes: WNL Edema: No Labs: CBC, BMP 12/08/19 08:10 12/08/19 08:10 INR, PTT INR 1.21 (0.83-1.09) H 12/03/19 12:56 Problem List - Problems (1) Asthma exacerbation Code(s): J45.901 - UNSPECIFIED ASTHMA WITH (ACUTE) EXACERBATION Qualifiers: Asthma severity: unspecified severity Asthma persistence: unspecified Qualified Code(s): J45.901 - Unspecified asthma with (acute) exacerbation (2) Productive cough Code(s): R05 - COUGH (3) Cough Code(s): R05 - COUGH (4) Wheezing Code(s): R06.2 - WHEEZING (5) DVT (deep venous thrombosis) Code(s): I82.409 - ACUTE EMBOLISM AND THOMBOS UNSP DEEP VN UNSP LOWER EXTREMITY Qualifiers: DVT location: lower extremity Chronicity: chronic (6) Hypertension Code(s): I10 - ESSENTIAL (PRIMARY) HYPERTENSION Qualifiers: Hypertension type: essential hypertension Qualified Code(s): I10 - Essential (primary) hypertension (7) Hypothyroidism Code(s): E03.9 - HYPOTHYROIDISM, UNSPECIFIED Qualifiers: Hypothyroidism type: unspecified Qualified Code(s): E03.9 - Hypothyroidism, unspecified (8) Moderate aortic stenosis Code(s): I35.0 - NONRHEUMATIC AORTIC (VALVE) STENOSIS Assessment/Plan Problem List - Problems (1) Asthma exacerbation Code(s): J45.901 - UNSPECIFIED ASTHMA WITH (ACUTE) EXACERBATION Qualifiers: Asthma severity: unspecified severity Asthma persistence: unspecified Qualified Code(s): J45.901 - Unspecified asthma with (acute) exacerbation Assessment/Plan Acute Asthma Exacerbation Seizure Disorder HTN Hyperlipidemia h/o DVT - IV medrol - inhaled bronchodilators - O2 to keep SpO2 >90% - nasal steroids - singulair - empiric antibiotics - anticoagulation - cough meds DR FLORES
--- NOTE | 2019-12-08 16:15 | PN ---
Physical Exam: SUBJECTIVE: Patient seen and examined at bedside. Reports mildly improved breathing with decreased wheezing. Still complaining of headache around the eyes and nose. OBJECTIVE: Vital Signs Period Temp Pulse Resp BP Sys/[place] Pulse Ox Last 24 Hr 97.8 F-98.0 F 77-94 18-20 108-142/58-82 GENERAL: A&Ox3, no acute distress LUNGS: diffuse wheezing noted bilaterally in upper and lower lobes of both lungs HEART: mildly tachycardic, no murmurs ABDOMEN: Soft, nontender, BS present Laboratory Results - last 24 hr 12/08/19 12/08/19 08:10 08:10 WBC 15.6 H RBC 4.85 Hgb 13.2 Hct 41.1 MCV 84.7 MCH 27.2 MCHC 32.0 RDW 16.0 H Plt Count 261 MPV 9.5 Sodium 139 Potassium 4.9 Chloride 100 Carbon Dioxide 31 Anion Gap 9 BUN 38.8 H Creatinine 1.0 Est GFR (CKD-EPI)AfAm 61.62 Est GFR (CKD-EPI)NonAf 53.17 Random Glucose 248 H Calcium 8.6 Active Medications Generic Name Dose Route Start Last Admin Trade Name Freq PRN Reason Stop Dose Admin Acetaminophen 650 mg 12/07/19 09:14 12/08/19 09:31 Tylenol - PO 650 mg Q6H PRN Administration HEADACHE Albuterol/Ipratropium 1 amp 12/03/19 20:00 12/08/19 12:29 Duoneb - NEB 1 amp RQID LUIZA Administration Apixaban 2.5 mg 12/03/19 22:00 12/08/19 09:35 Eliquis - PO 2.5 mg BID LUIZA Administration Aspirin 81 mg 12/04/19 10:00 12/08/19 09:30 Ecotrin - PO 81 mg DAILY LUIZA Administration Atorvastatin Calcium 20 mg 12/03/19 22:00 12/07/19 21:10 Lipitor - PO 20 mg HS LUIZA Administration Budesonide/Formoterol Fumarate 2 puff 12/07/19 22:00 12/08/19 10:59 Symbicort 160/4.5mcg - IH 2 puff BID LUIZA Administration Fluticasone Propionate 2 spray 12/04/19 13:45 12/08/19 09:35 Flonase - NS 2 sprays BID LUIZA Administration Guaifenesin/Codeine Phosphate 5 ml 03/11/20 13:36 12/07/19 21:10 Robitussin Ac - PO 5 ml TID PRN Administration COUGH HCTZ/Losartan Potassium 2 tab 12/04/19 10:00 12/08/19 09:35 Hyzaar - PO 2 tab DAILY LUIZA Administration Levofloxacin 500 mg in 100 mls @ 100 mls/hr 12/03/19 17:00 12/08/19 09:23 Levaquin 500 Mg Premixed Ivpb - IVPB 100 mls/hr DAILY LUIZA Administration Protocol Levetiracetam 750 mg 12/03/19 22:00 12/08/19 09:32 Keppra - PO 750 mg BID LUIZA Administration Levothyroxine Sodium 25 mcg 12/04/19 07:00 12/08/19 06:06 Synthroid - PO 25 mcg ACBK LUIZA Administration Loratadine 10 mg 12/05/19 10:00 12/08/19 09:33 Claritin - PO 10 mg DAILY LUIZA Administration Meclizine HCl 25 mg 12/03/19 17:07 12/08/19 09:31 Antivert - PO 25 mg Q12H PRN Administration dizziness Methylprednisolone Sodium Succinate 40 mg 12/03/19 17:00 12/08/19 15:55 Solu-Medrol - IVPUSH 40 mg Q6H-IV LUIZA Administration Montelukast Sodium 10 mg 12/03/19 22:00 12/07/19 21:10 Singulair - PO 10 mg HS LUIZA Administration Pantoprazole Sodium 40 mg 12/04/19 10:00 12/08/19 10:55 Protonix - PO 40 mg DAILY LUIZA Administration Sodium Chloride 2 spray 12/04/19 16:58 [place] Nasal [place] - NS BID PRN NASAL CONGESTION ASSESSMENT/PLAN: 79 year old female history of asthma, hypertension, hyperlipidemia, hypothyroidism, h/o DVT, seizure disorder admitted for asthma exacerbation #Asthma Exacerbation: appears to be improving, yet patient is wheezing on exam -continue solumedrol 40q6h -continue duonebs -levaquin 500mg day 6, consider stopping at 7 days -continue singulair -encouraged peak flow measurement -following pulm recommendations -LABA continue #Dizziness: mildly improved from yesterday -continue meclizine -encouraged patient only to walk with assistance #Hypertension -Not on medication #Hyperlipidemia -continue atorvastatin 20 #Hypothyroidism -continue synthroid 25 mcg #Hx DVT -continue eliquis 2.5 BID #Seizure Disorder -continue keppra 750 BID #FEN -no standing fluids -replete lytes as necessary in AM -diet ordered #Prophylaxis -on eliquis #Disposition -continue to monitor on med surg, anticipate DC in 48 hours Visit type - Emergency Visit Emergency Visit: No - New Patient This patient is new to me today: No - Critical Care Critical Care patient: No ATTENDING PHYSICIAN STATEMENT I saw and evaluated the patient. I reviewed the resident's note and discussed the case with the resident. I agree with the resident's findings and plan as documented. SUBJECTIVE: OBJECTIVE: ASSESSMENT AND PLAN:
[2019-12-08] MEDS: MONTELUKAST NA 10 MG TABLET PO SCH (21:43)
[2019-12-08] MEDS: ATORVASTATIN CA 20 MG TABLET (FP) PO SCH (21:44)
[2019-12-08] MEDS: guaiFENesin/CODEINE 5 ML UNIT-DOSE CUPS PO PRN (21:52)
--- NOTE | 2019-12-08 22:33 | PN ---
Teaching Attending Note Name of Resident: Felice Cline ATTENDING PHYSICIAN STATEMENT I saw and evaluated the patient. I reviewed the resident's note and discussed the case with the resident. I agree with the resident's findings and plan as documented. SUBJECTIVE: Patient seen and examined at bedside, no distress, speaking in full sentences but has multiple complaints, VS otherwise stable. Objective: GENERAL: A&Ox3, no acute distress, speaking in full sentences LUNGS: mild end-expiratory wheezing b/l, no accessory M use HEART: S1, S2+, RRR ABDOMEN: Soft, nontender, BS present Ext moves all 4 ext., no LE edema, no calf tenderness Vital Signs - 24 hr 12/08/19 12/08/19 12/08/19 05:25 14:40 20:06 Temperature 97.8 F 97.9 F 97.9 F Pulse Rate 77 94 H 89 Respiratory 18 20 19 Rate Blood Pressure 115/58 L 142/82 109/57 L 12/08/19 20:48 Temperature Pulse Rate Respiratory 20 Rate Blood Pressure Microbiology 12/04/19 12:55 Blood - Peripheral Venous Blood Culture - Preliminary NO GROWTH OBTAINED AFTER 96 HOURS, INCUBATION TO CONTINUE FOR 1 DAYS. 12/04/19 12:55 Blood - Peripheral Venous Blood Culture - Preliminary NO GROWTH OBTAINED AFTER 96 HOURS, INCUBATION TO CONTINUE FOR 1 DAYS. 12/05/19 09:30 Sputum - Expectorated Gram Stain - Final 12/05/19 09:30 Sputum - Expectorated Sputum Culture - Final NORMAL RESPIRATORY ISSAC 12/05/19 06:00 Urine For Antigen Detection Legionella Antigen - Final 12/05/19 06:00 Urine For Antigen Detection Streptococcus pneumoniae Antigen (M - Final 12/03/19 13:30 Urine - Urine Clean Catch Urine Culture - Final Normal Urogenital Issac Laboratory Results - last 24 hr 12/08/19 12/08/19 08:10 08:10 WBC 15.6 H RBC 4.85 Hgb 13.2 Hct 41.1 MCV 84.7 MCH 27.2 MCHC 32.0 RDW 16.0 H Plt Count 261 MPV 9.5 Sodium 139 Potassium 4.9 Chloride 100 Carbon Dioxide 31 Anion Gap 9 BUN 38.8 H Creatinine 1.0 Est GFR (CKD-EPI)AfAm 61.62 Est GFR (CKD-EPI)NonAf 53.17 Random Glucose 248 H Calcium 8.6 Home Medications Medication Instructions Recorded Fluticasone Prop 0.05% Nasal 1 - 2 spray NS BID 04/15/17 [Flonase -] Levothyroxine [Synthroid -] 25 mcg PO DAILY 04/15/17 Losartan/Hydrochlorothiazide 1 each PO DAILY 04/15/17 [Losartan-Hctz 100-25 mg Tab] Pantoprazole Sodium [Protonix -] 40 mg PO DAILY 04/15/17 Salmeterol/Fluticasone [Advair 1 inh PO BID 05/02/17 250Mcg/50Mcg -] Simvastatin 40 mg PO HS 06/13/17 Apixaban [Eliquis] 2.5 mg PO BID 06/11/19 Linaclotide [Linzess] 290 mcg PO DAILY 08/12/19 levETIRAcetam [Keppra -] 750 mg PO BID 08/12/19 Benzonatate 200 mg PO BID 08/13/19 Meclizine HCl [Antivert -] 25 mg PO BID PRN 08/13/19 Albuterol 0.083% Nebulizer [place] 1 amp NEB Q4H PRN amp 08/21/19 [Ventolin 0.083% Nebulizer Soln -] Albuterol 2.5/Ipratropium 0.5 1 amp NEB RQID amp 08/21/19 [Duoneb -] Fluticasone/Salmeterol [Advair 1 each IH BID #1 blst.w.dev 10/21/19 250-50 Diskus] Montelukast Na [Singulair -] 10 mg PO HS #1 tablet 10/21/19 Azithromycin 250 mg PO DAILY #4 tablet 11/29/19 predniSONE [Deltasone -] 40 mg PO DAILY #10 tablet 11/29/19 Current Medications Generic Name Dose Route Start Last Admin Trade Name Freq PRN Reason Stop Dose Admin Acetaminophen 650 mg 12/07/19 09:14 12/08/19 19:13 Tylenol - PO 650 mg Q6H PRN Administration HEADACHE Apixaban 2.5 mg 12/03/19 22:00 12/08/19 21:44 Eliquis - PO 2.5 mg BID LUIZA Administration Aspirin 81 mg 12/04/19 10:00 12/08/19 09:30 Ecotrin - PO 81 mg DAILY [facility] Administration Atorvastatin Calcium 20 mg 12/03/19 22:00 12/08/19 21:44 Lipitor - PO 20 mg HS LUIZA Administration Budesonide/Formoterol Fumarate 2 puff 12/07/19 22:00 12/08/19 21:45 Symbicort 160/4.5mcg - IH 2 puff BID LUI[facility] Administration Fluticasone Propionate 2 spray 12/04/19 13:45 12/08/19 21:44 Flonase - NS 2 sprays BID LUI[facility] Administration Guaifenesin/Codeine Phosphate 5 ml 12/06/19 13:36 12/08/19 21:52 Robitussin Ac - PO 5 ml TID PRN Administration COUGH HCTZ/Losartan Potassium 2 tab 12/04/19 10:00 12/08/19 09:35 Hyzaar - PO 2 tab DAILY [facility] Administration Levofloxacin 500 mg in 100 mls @ 100 mls/hr 12/03/19 17:00 12/08/19 09:23 Levaquin 500 Mg Premixed Ivpb - IVPB 100 mls/hr DAILY [facility] Administration Protocol Levetiracetam 750 mg 12/03/19 22:00 12/08/19 21:43 Keppra - PO 750 mg BID LUIZA Administration Levothyroxine Sodium 25 mcg 12/04/19 07:00 12/08/19 06:06 Synthroid - PO 25 mcg ACBK LUIZA Administration Loratadine 10 mg 12/05/19 10:00 12/08/19 09:33 Claritin - PO 10 mg DAILY [facility] Administration Meclizine HCl 25 mg 12/03/19 17:07 12/08/19 09:31 Antivert - PO 25 mg Q12H PRN Administration dizziness Methylprednisolone Sodium Succinate 40 mg 12/03/19 17:00 12/08/19 21:44 Solu-Medrol - IVPUSH 40 mg Q6H-IV LUIZA Administration Montelukast Sodium 10 mg 12/03/19 22:00 12/08/19 21:43 Singulair - PO 10 mg HS LUIZA Administration Pantoprazole Sodium 40 mg 12/04/19 10:00 12/08/19 10:55 Protonix - PO 40 mg DAILY [facility] Administration Sodium Chloride 2 spray 12/04/19 16:58 [place] Nasal [place] - NS BID PRN NASAL CONGESTION A/P: 79 F h/o asthma, HTN, HLD, hypothyroidism, h/o DVT, seizure disorder admitted for acute MARLY. Acute asthma exacerbation IV steroids, duonebs, IV Mg PRN, LABA added by pulmonary, serial peak flows FOllow viral panel, Singulair, nasal saline/Flonase PRN, PPI Pulmonary consult BPPV Meclizine PRN CT brain neg. HTN start norvasc 5mg PRN HLD cont. statin Hypothyroidism cont. Synthroid h/o DVT Eliquis 2.5mg BID cont. Seizure disorder cont. Keppra DVT ppx: Eliquis Med surg
[2019-12-09] MEDS: methylPREDNISolone NA SUCC 40 MG/1 ML VIAL IVPUSH SCH ×3 (02:30→17:21)
[2019-12-09] MEDS: LEVOTHYROXINE NA 25 MCG TABLET (FP) PO SCH (06:04)
[2019-12-09] MEDS ORDERED: PT OWN MED DRAWER 7, Y5N ONE ×2 (08:06→09:32)
[2019-12-09] MEDS: MECLIZINE HCL 25 MG TABLET (FP) PO PRN (08:08)
[2019-12-09 08:57] LABS: HEMATOCRIT 42.2 % (32.4-45.2); HEMOGLOBIN 13.7 GM/dL (10.7-15.3); MCH 27.7 pg (25.7-33.7); MCHC 32.5 g/dl (32.0-36.0); MEAN CELL VOLUME 85.3 fl (80-96); MEAN PLT VOLUME 9.3 fl (7.5-11.1); PLATELET COUNT 261 K/MM3 (134-434); RBC 4.95 M/mm3 (3.60-5.2); RDW 15.8 % (11.6-15.6); WHITE BLOOD COUNT 16.4 K/mm3 (4.0-10.0)
[2019-12-09 09:05] LABS: BLOOD UREA NITROGEN 34.5 mg/dL (7-18); CALCIUM 8.3 mg/dL (8.5-10.1); MAGNESIUM 2.6 mg/dL (1.8-2.4); PHOSPHOROUS 3.6 mg/dL (2.5-4.9); POTASSIUM 5.2 mmol/L (3.5-5.1)
[2019-12-09] MEDS: guaiFENesin/CODEINE 5 ML UNIT-DOSE CUPS PO PRN (09:35)
[2019-12-09] MEDS: ACETAMINOPHEN 325 MG TABLET (FP) PO PRN (09:35)
[2019-12-09] MEDS: PANTOPRAZOLE 40 MG TABLET PO SCH (09:36)
[2019-12-09] MEDS: ASPIRIN COATED 81 MG TABLET.EC PO SCH (09:36)
[2019-12-09] MEDS: levETIRAcetam 500 MG TABLET (FP) PO SCH ×2 (09:36→21:16)
[2019-12-09] MEDS: LOSARTAN 50MG/HCTZ 12.5MG 1 TAB (FP) PO SCH (09:36)
[2019-12-09] MEDS: LORATADINE 10 MG TABLET PO SCH (09:36)
[2019-12-09] MEDS: APIXABAN 2.5 MG TABLET PO SCH ×2 (09:36→21:17)
[2019-12-09] MEDS: FLUTICASONE PROP 0.05% 16 GM NASAL SPRAY NS SCH ×2 (09:37→21:18)
[2019-12-09] MEDS: SODIUM CHLORIDE NASAL SPRAY 44 ML BOTTLE NS PRN (09:37)
[2019-12-09] MEDS: BUDESONIDE/FORMETEROL FUMARATE 160/4.5 mcg INHALER IH SCH ×2 (09:37→21:18)
--- NOTE | 2019-12-09 11:49 | PN ---
Progress Note, Physician History of Present Illness: seen and examined at bedside. Endorses she has chest soreness when she coughs. Endorses headaches, nausea but no vomiting no fever or chills but endorses wheezing. Denies improvement in her respiratory status. Has yellow sputum productive with cough. Endorses occasional dizziness. - Current Medication List Current Medications: Active Medications Acetaminophen (Tylenol -) 650 mg PO Q6H PRN PRN Reason: HEADACHE Last Admin: 12/09/19 09:35 Dose: 650 mg Documented by: Apixaban (Eliquis -) 2.5 mg PO BID [facility] Last Admin: 12/09/19 09:36 Dose: 2.5 mg Documented by: Aspirin (Ecotrin -) 81 mg PO DAILY [facility] Last Admin: 12/09/19 09:36 Dose: 81 mg Documented by: Atorvastatin Calcium (Lipitor -) 20 mg PO HS [facility] Last Admin: 12/08/19 21:44 Dose: 20 mg Documented by: Budesonide/Formoterol Fumarate (Symbicort 160/4.5mcg -) 2 puff IH BID [facility] Last Admin: 12/09/19 09:37 Dose: 2 puff Documented by: Fluticasone Propionate (Flonase -) 2 spray NS BID [facility] Last Admin: 12/09/19 09:37 Dose: 2 sprays Documented by: Guaifenesin/Codeine Phosphate (Robitussin Ac -) 5 ml PO TID PRN PRN Reason: COUGH Last Admin: 12/09/19 09:35 Dose: 5 ml Documented by: HCTZ/Losartan Potassium (Hyzaar -) 2 tab PO DAILY [facility] Last Admin: 12/09/19 09:36 Dose: 2 tab Documented by: Levetiracetam (Keppra -) 750 mg PO BID [facility] Last Admin: 12/09/19 09:36 Dose: 750 mg Documented by: Levothyroxine Sodium (Synthroid -) 25 mcg PO ACBK [facility] Last Admin: 12/09/19 06:04 Dose: 25 mcg Documented by: Loratadine (Claritin -) 10 mg PO DAILY [facility] Last Admin: 12/09/19 09:36 Dose: 10 mg Documented by: Meclizine HCl (Antivert -) 25 mg PO Q12H PRN PRN Reason: dizziness Last Admin: 12/09/19 08:08 Dose: 25 mg Documented by: Methylprednisolone Sodium Succinate (Solu-Medrol -) 40 mg IVPUSH Q6H-IV [facility] Last Admin: 12/09/19 08:08 Dose: 40 mg Documented by: Montelukast Sodium (Singulair -) 10 mg PO HS [facility] Last Admin: 12/08/19 21:43 Dose: 10 mg Documented by: Pantoprazole Sodium (Protonix -) 40 mg PO DAILY [facility] Last Admin: 12/09/19 09:36 Dose: 40 mg Documented by: Sodium Chloride ([place] Nasal [place] -) 2 spray NS BID PRN PRN Reason: NASAL CONGESTION Last Admin: 12/09/19 09:37 Dose: 2 500s Documented by: - Objective Vital Signs: Vital Signs Temperature 98.0 F 12/09/19 10:00 Pulse Rate 91 H 12/09/19 10:00 Respiratory Rate 20 12/09/19 10:00 Blood Pressure 119/85 12/09/19 10:00 O2 Sat by Pulse Oximetry (%) 95 12/05/19 21:00 Constitutional: Yes: Anxious Eyes: Yes: EOM Intact Cardiovascular: Yes: Regular Rate and Rhythm Respiratory: Yes: Wheezes (prolonged expiratory phase.) Gastrointestinal: Yes: Soft Edema: Yes Edema: LLE: Trace, RLE: Trace Labs: CBC, BMP 12/09/19 07:50 12/09/19 07:50 INR, PTT INR 1.21 (0.83-1.09) H 12/03/19 12:56 Impression/Plan Impression/Plan: 79 year old female history of asthma, hypertension, hyperlipidemia, hypothyroidism, h/o DVT, seizure disorder admitted for asthma exacerbation Acute respiratory failure secondary to acute on chronic Asthma Exacerbation on room air and saturating well continue IV medrol but decrease from 40mg IV q6h to q8h stop levaquin after 7 days today continue singulair continue symbicort continue flonase start duonebs around the clock Dizziness: continue meclizine Hypertension continue HCTZ/Losartan combination Hyperlipidemia continue statin Hypothyroidism continue synthroid 25 mcg Hx DVT continue eliquis 2.5 BID Seizure Disorder continue keppra 750 BID hyperkalemia potassium 5.2 today will repeat and treat if needed Prophylaxis on eliquis Visit type - Emergency Visit Emergency Visit: Yes ED Registration Date: 12/03/19 Care time: The patient presented to the Emergency Department on the above date and was hospitalized for further evaluation of their emergent condition. - New Patient This patient is new to me today: Yes Date on this admission: 12/09/19 - Critical Care Critical Care patient: No
[2019-12-09] MEDS: ALBUTEROL SO4 2.5/IPRATROPIUM 0.5 INH SOL 3 ML VIAL.NEB. NEB SCH ×3 (12:15→19:46)
--- NOTE | 2019-12-09 12:16 | PN ---
Progress Note, Physician History of Present Illness: SEATED IN BED EATING LUNCH C/O HEADACHE BREATHING NON LABORED OCCASIONAL COUGH CLEAR SPUTUM AFEBRILE, WBC ELEVATED ON STEROIDS - Current Medication List Current Medications: Active Medications Acetaminophen (Tylenol -) 650 mg PO Q6H PRN PRN Reason: HEADACHE Last Admin: 12/09/19 09:35 Dose: 650 mg Documented by: Albuterol/Ipratropium (Duoneb -) 1 amp NEB RQID [facility] Apixaban (Eliquis -) 2.5 mg PO BID [facility] Last Admin: 12/09/19 09:36 Dose: 2.5 mg Documented by: Aspirin (Ecotrin -) 81 mg PO DAILY [facility] Last Admin: 12/09/19 09:36 Dose: 81 mg Documented by: Atorvastatin Calcium (Lipitor -) 20 mg PO HS [facility] Last Admin: 12/08/19 21:44 Dose: 20 mg Documented by: Budesonide/Formoterol Fumarate (Symbicort 160/4.5mcg -) 2 puff IH BID [facility] Last Admin: 12/09/19 09:37 Dose: 2 puff Documented by: Fluticasone Propionate (Flonase -) 2 spray NS BID [facility] Last Admin: 12/09/19 09:37 Dose: 2 sprays Documented by: Guaifenesin/Codeine Phosphate (Robitussin Ac -) 5 ml PO TID PRN PRN Reason: COUGH Last Admin: 12/09/19 09:35 Dose: 5 ml Documented by: HCTZ/Losartan Potassium (Hyzaar -) 2 tab PO DAILY [facility] Last Admin: 12/09/19 09:36 Dose: 2 tab Documented by: Insulin Aspart (Novolog Vial Sliding Scale -) 1 vial SQ TIDAC [facility]; Protocol Levetiracetam (Keppra -) 750 mg PO BID [facility] Last Admin: 12/09/19 09:36 Dose: 750 mg Documented by: Levothyroxine Sodium (Synthroid -) 25 mcg PO ACBK [facility] Last Admin: 12/09/19 06:04 Dose: 25 mcg Documented by: Loratadine (Claritin -) 10 mg PO DAILY [facility] Last Admin: 12/09/19 09:36 Dose: 10 mg Documented by: Meclizine HCl (Antivert -) 25 mg PO Q12H PRN PRN Reason: dizziness Last Admin: 12/09/19 08:08 Dose: 25 mg Documented by: Methylprednisolone Sodium Succinate (Solu-Medrol -) 40 mg IVPUSH Q8H-IV [facility] Montelukast Sodium (Singulair -) 10 mg PO HS [facility] Last Admin: 12/08/19 21:43 Dose: 10 mg Documented by: Pantoprazole Sodium (Protonix -) 40 mg PO DAILY [facility] Last Admin: 12/09/19 09:36 Dose: 40 mg Documented by: Sodium Chloride ([place] Nasal [place] -) 2 spray NS BID PRN PRN Reason: NASAL CONGESTION Last Admin: 12/09/19 09:37 Dose: 2 500s Documented by: - Objective Vital Signs: Vital Signs Temperature 98.0 F 12/09/19 10:00 Pulse Rate 91 H 12/09/19 10:00 Respiratory Rate 20 12/09/19 10:00 Blood Pressure 119/85 12/09/19 10:00 O2 Sat by Pulse Oximetry (%) 99 12/09/19 09:00 Constitutional: Yes: No Distress Eyes: Yes: Conjunctiva Clear Cardiovascular: Yes: Regular Rate and Rhythm, S1, S2 Respiratory: Yes: Diminished Gastrointestinal: Yes: Normal Bowel Sounds, Soft, Abdomen, Obese. No: Tenderness Edema: LLE: 1+, RLE: 1+ Labs: CBC, BMP 12/09/19 07:50 12/09/19 07:50 INR, PTT INR 1.21 (0.83-1.09) H 12/03/19 12:56 Assessment/Plan ACUTE EXACERBATION COPD R/O PNEUMONIA LEUKOCYTOSIS LIKELY STEROID-INDUCED PCN ALLERGY COMPLETED COURSE OF EMPIRIC LEVAQUIN OBSERVE OFF
--- NOTE | 2019-12-09 13:09 | PN ---
Progress Note (short form) - Note Progress Note: PULMONARY Still with congestion, shortness of breath, wheezing. Vital Signs Period Temp Pulse Resp BP Sys/[place] Pulse Ox Last 24 Hr 97.8 F-98.0 F 78-110 19-20 109-142/55-85 99 Gen: ill appearing Heart: RRR Lung: bilateral rhonchi, wheezes Abd: soft, nontender Ext: no edema CBC, BMP 12/09/19 07:50 12/09/19 07:50 Active Medications Acetaminophen (Tylenol -) 650 mg PO Q6H PRN PRN Reason: HEADACHE Last Admin: 12/09/19 09:35 Dose: 650 mg Documented by: Albuterol/Ipratropium (Duoneb -) 1 amp NEB RQID [facility] Last Admin: 12/09/19 12:15 Dose: 1 amp Documented by: Apixaban (Eliquis -) 2.5 mg PO BID [facility] Last Admin: 12/09/19 09:36 Dose: 2.5 mg Documented by: Aspirin (Ecotrin -) 81 mg PO DAILY [facility] Last Admin: 12/09/19 09:36 Dose: 81 mg Documented by: Atorvastatin Calcium (Lipitor -) 20 mg PO HS [facility] Last Admin: 12/08/19 21:44 Dose: 20 mg Documented by: Budesonide/Formoterol Fumarate (Symbicort 160/4.5mcg -) 2 puff IH BID [facility] Last Admin: 12/09/19 09:37 Dose: 2 puff Documented by: Fluticasone Propionate (Flonase -) 2 spray NS BID [facility] Last Admin: 12/09/19 09:37 Dose: 2 sprays Documented by: Guaifenesin/Codeine Phosphate (Robitussin Ac -) 5 ml PO TID PRN PRN Reason: COUGH Last Admin: 12/09/19 09:35 Dose: 5 ml Documented by: HCTZ/Losartan Potassium (Hyzaar -) 2 tab PO DAILY [facility] Last Admin: 12/09/19 09:36 Dose: 2 tab Documented by: Insulin Aspart (Novolog Vial Sliding Scale -) 1 vial SQ TIDAC [facility]; Protocol Levetiracetam (Keppra -) 750 mg PO BID [facility] Last Admin: 12/09/19 09:36 Dose: 750 mg Documented by: Levothyroxine Sodium (Synthroid -) 25 mcg PO ACBK [facility] Last Admin: 12/09/19 06:04 Dose: 25 mcg Documented by: Loratadine (Claritin -) 10 mg PO DAILY [facility] Last Admin: 12/09/19 09:36 Dose: 10 mg Documented by: Meclizine HCl (Antivert -) 25 mg PO Q12H PRN PRN Reason: dizziness Last Admin: 12/09/19 08:08 Dose: 25 mg Documented by: Methylprednisolone Sodium Succinate (Solu-Medrol -) 40 mg IVPUSH Q8H-IV [facility] Montelukast Sodium (Singulair -) 10 mg PO HS [facility] Last Admin: 12/08/19 21:43 Dose: 10 mg Documented by: Pantoprazole Sodium (Protonix -) 40 mg PO DAILY [facility] Last Admin: 12/09/19 09:36 Dose: 40 mg Documented by: Sodium Chloride ([place] Nasal [place] -) 2 spray NS BID PRN PRN Reason: NASAL CONGESTION Last Admin: 12/09/19 09:37 Dose: 2 500s Documented by: A/P Acute Asthma Exacerbation Seizure Disorder HTN Hyperlipidemia h/o DVT - continue medrol - inhaled bronchodilators - LABA - O2 to keep SpO2 >90% - nasal steroids - singulair - on empiric antibiotics - continue anticoagulation Problem List - Problems (1) Asthma exacerbation Code(s): J45.901 - UNSPECIFIED ASTHMA WITH (ACUTE) EXACERBATION Qualifiers: Asthma severity: unspecified severity Asthma persistence: unspecified Qualified Code(s): J45.901 - Unspecified asthma with (acute) exacerbation
[2019-12-09] MEDS: INSULIN SLIDING SCALE (NOVOLOG) 1 VIAL SQ SCH (16:58)
[2019-12-09] MEDS: ATORVASTATIN CA 20 MG TABLET (FP) PO SCH (21:17)
[2019-12-09] MEDS: MONTELUKAST NA 10 MG TABLET PO SCH (21:17)
[2019-12-10] MEDS: methylPREDNISolone NA SUCC 40 MG/1 ML VIAL IVPUSH SCH ×3 (01:59→17:29)
[2019-12-10] MEDS: INSULIN SLIDING SCALE (NOVOLOG) 1 VIAL SQ SCH ×3 (06:43→16:04)
[2019-12-10] MEDS: LEVOTHYROXINE NA 25 MCG TABLET (FP) PO SCH (06:43)
[2019-12-10] MEDS: ALBUTEROL SO4 2.5/IPRATROPIUM 0.5 INH SOL 3 ML VIAL.NEB. NEB SCH ×4 (07:35→20:49)
[2019-12-10 08:30] LABS: BASO % 0.1 % (0-2.0); EOS % 0.1 % (0-4.5); HEMATOCRIT 43.7 % (32.4-45.2); HEMOGLOBIN 14.1 GM/dL (10.7-15.3); MCH 27.6 pg (25.7-33.7); MCHC 32.3 g/dl (32.0-36.0); MEAN CELL VOLUME 85.3 fl (80-96); MEAN PLT VOLUME 9.2 fl (7.5-11.1); MONO % 4.3 % (3.8-10.2); NEUT % 90.5 % (42.8-82.8); PLATELET COUNT 263 K/MM3 (134-434); RBC 5.12 M/mm3 (3.60-5.2); RDW 16.3 % (11.6-15.6); WHITE BLOOD COUNT 18.5 K/mm3 (4.0-10.0)
[2019-12-10 08:58] LABS: BLOOD UREA NITROGEN 32.9 mg/dL (7-18); CALCIUM 8.8 mg/dL (8.5-10.1); CREATININE 1.1 mg/dL (0.55-1.3); POTASSIUM 5.5 mmol/L (3.5-5.1)
[2019-12-10] MEDS ORDERED: PT OWN MED DRAWER 7, Y5N ONE (09:38)
[2019-12-10] MEDS: levETIRAcetam 500 MG TABLET (FP) PO SCH ×2 (09:43→21:27)
[2019-12-10] MEDS: PANTOPRAZOLE 40 MG TABLET PO SCH (09:44)
[2019-12-10] MEDS: APIXABAN 2.5 MG TABLET PO SCH ×2 (09:44→21:27)
[2019-12-10] MEDS: LOSARTAN 50MG/HCTZ 12.5MG 1 TAB (FP) PO SCH (09:44)
[2019-12-10] MEDS: LORATADINE 10 MG TABLET PO SCH (09:44)
[2019-12-10] MEDS: ASPIRIN COATED 81 MG TABLET.EC PO SCH (09:44)
[2019-12-10] MEDS: BUDESONIDE/FORMETEROL FUMARATE 160/4.5 mcg INHALER IH SCH ×2 (09:45→21:25)
[2019-12-10] MEDS: FLUTICASONE PROP 0.05% 16 GM NASAL SPRAY NS SCH ×2 (09:46→21:25)
[2019-12-10] MEDS: SODIUM CHLORIDE NASAL SPRAY 44 ML BOTTLE NS PRN (09:46)
[2019-12-10 12:19] LABS: ANISOCYTOSIS 0; MACROCYTOSIS 0; PLATELET ESTIMATE NORMAL
--- NOTE | 2019-12-10 14:51 | PN ---
Progress Note (short form) - Note Progress Note: PULMONARY Breathing finally improving. Less headache and cough. Vital Signs Period Temp Pulse Resp BP Sys/[place] Pulse Ox Last 24 Hr 97.4 F-98.2 F 78-95 20-20 103-146/51-79 99-99 Gen: less tachypneic Heart: RRR Lung: bilateral rhonchi, wheezes Abd: soft, nontender Ext: no edema CBC, BMP 12/10/19 08:00 12/10/19 08:00 Active Medications Acetaminophen (Tylenol -) 650 mg PO Q6H PRN PRN Reason: HEADACHE Last Admin: 12/09/19 09:35 Dose: 650 mg Documented by: Albuterol/Ipratropium (Duoneb -) 1 amp NEB RQID [facility] Last Admin: 12/10/19 11:15 Dose: 1 amp Documented by: Apixaban (Eliquis -) 2.5 mg PO BID [facility] Last Admin: 12/10/19 09:44 Dose: 2.5 mg Documented by: Aspirin (Ecotrin -) 81 mg PO DAILY [facility] Last Admin: 12/10/19 09:44 Dose: 81 mg Documented by: Atorvastatin Calcium (Lipitor -) 20 mg PO HS [facility] Last Admin: 12/09/19 21:17 Dose: 20 mg Documented by: Budesonide/Formoterol Fumarate (Symbicort 160/4.5mcg -) 2 puff IH BID [facility] Last Admin: 12/10/19 09:45 Dose: 2 puff Documented by: Fluticasone Propionate (Flonase -) 2 spray NS BID [facility] Last Admin: 12/10/19 09:46 Dose: 2 sprays Documented by: Guaifenesin/Codeine Phosphate (Robitussin Ac -) 5 ml PO TID PRN PRN Reason: COUGH Last Admin: 12/09/19 09:35 Dose: 5 ml Documented by: HCTZ/Losartan Potassium (Hyzaar -) 2 tab PO DAILY [facility] Last Admin: 12/10/19 09:44 Dose: 2 tab Documented by: Insulin Aspart (Novolog Vial Sliding Scale -) 1 vial SQ TIDAC [facility]; Protocol Last Admin: 12/10/19 11:30 Dose: 4 units Documented by: Levetiracetam (Keppra -) 750 mg PO BID [facility] Last Admin: 12/10/19 09:43 Dose: 750 mg Documented by: Levothyroxine Sodium (Synthroid -) 25 mcg PO ACBK [facility] Last Admin: 12/10/19 06:43 Dose: 25 mcg Documented by: Loratadine (Claritin -) 10 mg PO DAILY [facility] Last Admin: 12/10/19 09:44 Dose: 10 mg Documented by: Meclizine HCl (Antivert -) 25 mg PO Q12H PRN PRN Reason: dizziness Last Admin: 12/09/19 08:08 Dose: 25 mg Documented by: Methylprednisolone Sodium Succinate (Solu-Medrol -) 40 mg IVPUSH Q8H-IV [facility] Last Admin: 12/10/19 09:44 Dose: 40 mg Documented by: Montelukast Sodium (Singulair -) 10 mg PO HS [facility] Last Admin: 12/09/19 21:17 Dose: 10 mg Documented by: Pantoprazole Sodium (Protonix -) 40 mg PO DAILY [facility] Last Admin: 12/10/19 09:44 Dose: 40 mg Documented by: Sodium Chloride ([place] Nasal [place] -) 2 spray NS BID PRN PRN Reason: NASAL CONGESTION Last Admin: 12/10/19 09:46 Dose: 2 500s Documented by: A/P Acute Asthma Exacerbation Seizure Disorder HTN Hyperlipidemia h/o DVT - continue medrol - inhaled bronchodilators - LABA - O2 to keep SpO2 >90% - nasal steroids - singulair - on empiric antibiotics - continue anticoagulation Problem List - Problems (1) Asthma exacerbation Code(s): J45.901 - UNSPECIFIED ASTHMA WITH (ACUTE) EXACERBATION Qualifiers: Asthma severity: unspecified severity Asthma persistence: unspecified Qualified Code(s): J45.901 - Unspecified asthma with (acute) exacerbation
--- NOTE | 2019-12-10 15:52 | PN ---
Progress Note, Physician History of Present Illness: seen and examined at bedside. Endorses feeling better overall but still dizziness. Reports improvement in her respiratory status but still has wheezing per patient. Denies fever chills. Chest pain still present when coughing. - Current Medication List Current Medications: Active Medications Acetaminophen (Tylenol -) 650 mg PO Q6H PRN PRN Reason: HEADACHE Last Admin: 12/09/19 09:35 Dose: 650 mg Documented by: Albuterol/Ipratropium (Duoneb -) 1 amp NEB RQID [facility] Last Admin: 12/10/19 11:15 Dose: 1 amp Documented by: Apixaban (Eliquis -) 2.5 mg PO BID [facility] Last Admin: 12/10/19 09:44 Dose: 2.5 mg Documented by: Aspirin (Ecotrin -) 81 mg PO DAILY [facility] Last Admin: 12/10/19 09:44 Dose: 81 mg Documented by: Atorvastatin Calcium (Lipitor -) 20 mg PO HS [facility] Last Admin: 12/09/19 21:17 Dose: 20 mg Documented by: Budesonide/Formoterol Fumarate (Symbicort 160/4.5mcg -) 2 puff IH BID [facility] Last Admin: 12/10/19 09:45 Dose: 2 puff Documented by: Fluticasone Propionate (Flonase -) 2 spray NS BID [facility] Last Admin: 12/10/19 09:46 Dose: 2 sprays Documented by: Guaifenesin/Codeine Phosphate (Robitussin Ac -) 5 ml PO TID PRN PRN Reason: COUGH Last Admin: 12/09/19 09:35 Dose: 5 ml Documented by: Hydrochlorothiazide (Hctz -) 25 mg PO DAILY [facility] Insulin Aspart (Novolog Vial Sliding Scale -) 1 vial SQ TIDAC [facility]; Protocol Last Admin: 12/10/19 11:30 Dose: 4 units Documented by: Levetiracetam (Keppra -) 750 mg PO BID [facility] Last Admin: 12/10/19 09:43 Dose: 750 mg Documented by: Levothyroxine Sodium (Synthroid -) 25 mcg PO ACBK [facility] Last Admin: 12/10/19 06:43 Dose: 25 mcg Documented by: Loratadine (Claritin -) 10 mg PO DAILY [facility] Last Admin: 12/10/19 09:44 Dose: 10 mg Documented by: Meclizine HCl (Antivert -) 25 mg PO Q12H PRN PRN Reason: dizziness Last Admin: 12/09/19 08:08 Dose: 25 mg Documented by: Methylprednisolone Sodium Succinate (Solu-Medrol -) 40 mg IVPUSH Q8H-IV [facility] Last Admin: 12/10/19 09:44 Dose: 40 mg Documented by: Montelukast Sodium (Singulair -) 10 mg PO HS [facility] Last Admin: 12/09/19 21:17 Dose: 10 mg Documented by: Pantoprazole Sodium (Protonix -) 40 mg PO DAILY [facility] Last Admin: 12/10/19 09:44 Dose: 40 mg Documented by: Sodium Chloride ([place] Nasal [place] -) 2 spray NS BID PRN PRN Reason: NASAL CONGESTION Last Admin: 12/10/19 09:46 Dose: 2 500s Documented by: - Objective Vital Signs: Vital Signs Temperature 97.5 F L 12/10/19 13:35 Pulse Rate 86 12/10/19 13:35 Respiratory Rate 20 12/10/19 13:35 Blood Pressure 146/73 12/10/19 13:35 O2 Sat by Pulse Oximetry (%) 99 12/10/19 09:00 Constitutional: Yes: sitting in bed comfortably speaking on the phone Eyes: Yes: EOM Intact Cardiovascular: Yes: Regular Rate and Rhythm Respiratory: Yes: bilateral rhonchi with scattered wheezes Gastrointestinal: Yes: Soft Edema: Yes Edema: LLE: Trace, RLE: Trace Labs: CBC, BMP 12/10/19 08:00 12/10/19 08:00 INR, PTT INR 1.21 (0.83-1.09) H 12/03/19 12:56 Impression/Plan Impression/Plan: 79 year old female history of asthma, hypertension, hyperlipidemia, h ypothyroidism, h/o DVT, seizure disorder admitted for asthma exacerbation Acute respiratory failure secondary to acute on chronic Asthma Exacerbation. Possible pneumonia. continue IV medrol at current dose 40mg IV q8h empiric levaquin discontinued after 7 days continue singulair continue symbicort continue flonase start duonebs around the clock Dizziness: continue meclizine Hypertension controlled stop HCTZ 25mg/Losartan 100mg combination and start HCTZ 25mg po daily alone suspect losartan may be causing hyperkalemia Hyperlipidemia continue statin Hypothyroidism continue synthroid 25 mcg Hx DVT continue eliquis 2.5 BID Seizure Disorder continue keppra 750 BID hyperkalemia potassium 5.5 today will repeat now stat and treat if needed stop HCTZ 25mg/Losartan 100mg combination and start HCTZ 25mg po daily alone suspect losartan may be causing hyperkalemia Prophylaxis on eliquis Visit type - Emergency Visit Emergency Visit: Yes ED Registration Date: 12/03/19 Care time: The patient presented to the Emergency Department on the above date and was hospitalized for further evaluation of their emergent condition. - New Patient This patient is new to me today: No - Critical Care Critical Care patient: No
[2019-12-10] MEDS: guaiFENesin/CODEINE 5 ML UNIT-DOSE CUPS PO PRN (16:04)
[2019-12-10] MEDS: MECLIZINE HCL 25 MG TABLET (FP) PO PRN (16:04)
[2019-12-10] MEDS: ATORVASTATIN CA 20 MG TABLET (FP) PO SCH (21:27)
[2019-12-10] MEDS: MONTELUKAST NA 10 MG TABLET PO SCH (21:27)
[2019-12-11] MEDS: methylPREDNISolone NA SUCC 40 MG/1 ML VIAL IVPUSH SCH ×3 (02:11→16:59)
[2019-12-11] MEDS: guaiFENesin/CODEINE 5 ML UNIT-DOSE CUPS PO PRN ×3 (02:30→22:14)
[2019-12-11] MEDS: INSULIN SLIDING SCALE (NOVOLOG) 1 VIAL SQ SCH ×3 (06:05→16:56)
[2019-12-11] MEDS: LEVOTHYROXINE NA 25 MCG TABLET (FP) PO SCH (06:05)
[2019-12-11 07:49] LABS: BASO % 0.1 % (0-2.0); BLOOD UREA NITROGEN 33.1 mg/dL (7-18); CALCIUM 8.6 mg/dL (8.5-10.1); CREATININE 1.1 mg/dL (0.55-1.3); HEMATOCRIT 40.2 % (32.4-45.2); LYMPH % 3.9 % (8-40); MCH 27.6 pg (25.7-33.7); MCHC 32.3 g/dl (32.0-36.0); MEAN CELL VOLUME 85.4 fl (80-96); MEAN PLT VOLUME 9.1 fl (7.5-11.1); MONO % 3.5 % (3.8-10.2); NEUT % 92.5 % (42.8-82.8); PLATELET COUNT 236 K/MM3 (134-434); POTASSIUM 5.9 mmol/L (3.5-5.1); RBC 4.71 M/mm3 (3.60-5.2); RDW 16.2 % (11.6-15.6)
[2019-12-11] MEDS ORDERED: CALCIUM GLUCONATE 10% - 1,000 MG/10 ML VIAL IVPB ONE ×2 (08:01→08:03)
--- NOTE | 2019-12-11 08:39 | PN ---
Teaching Attending Note Name of Resident: Felice Cline ATTENDING PHYSICIAN STATEMENT I saw and evaluated the patient. I reviewed the resident's note and discussed the case with the resident. I agree with the resident's findings and plan as documented. SUBJECTIVE: Patient complaint of dizziness, looks agitated OBJECTIVE: Vital Signs Temperature 98 F 12/11/19 06:00 Pulse Rate 84 12/11/19 06:00 Respiratory Rate 20 12/11/19 06:00 Blood Pressure 128/58 L 12/11/19 06:00 O2 Sat by Pulse Oximetry (%) 95 12/10/19 21:00 General: Elderly woman, not in acute distress HEENT; mucous membranes moist, no anemia, no jaundice, PERRLA, no nystagmus Neck: No JVD, supple, no bruit, thyroid palpably normal, normal carotid pulsations. Chest: Nontender, minimal wheezing. CVS: S1-S2 regular no murmur/gallop/rub Abdomen: Nondistended, soft, bowel sounds present. Extremities: No edema., No cough tenderness, pulses present PRIMARY CARE COORDINATOR: AO X3 , no gross motor sensory deficit CBC, BMP 12/11/19 06:40 12/11/19 06:40 Active Medications Acetaminophen (Tylenol -) 650 mg PO Q6H PRN PRN Reason: HEADACHE Last Admin: 12/09/19 09:35 Dose: 650 mg Documented by: Albuterol/Ipratropium (Duoneb -) 1 amp NEB RQID [facility] Last Admin: 12/10/19 20:49 Dose: 1 amp Documented by: Apixaban (Eliquis -) 2.5 mg PO BID [facility] Last Admin: 12/10/19 21:27 Dose: 2.5 mg Documented by: Aspirin (Ecotrin -) 81 mg PO DAILY [facility] Last Admin: 12/10/19 09:44 Dose: 81 mg Documented by: Atorvastatin Calcium (Lipitor -) 20 mg PO HS [facility] Last Admin: 12/10/19 21:27 Dose: 20 mg Documented by: Budesonide/Formoterol Fumarate (Symbicort 160/4.5mcg -) 2 puff IH BID [facility] Last Admin: 12/10/19 21:25 Dose: 2 puff Documented by: Fluticasone Propionate (Flonase -) 2 spray NS BID [facility] Last Admin: 12/10/19 21:25 Dose: 2 sprays Documented by: Guaifenesin/Codeine Phosphate (Robitussin Ac -) 5 ml PO TID PRN PRN Reason: COUGH Last Admin: 12/11/19 02:30 Dose: 5 ml Documented by: Hydrochlorothiazide (Hctz -) 25 mg PO DAILY [facility] Insulin Aspart (Novolog Vial Sliding Scale -) 1 vial SQ TIDAC [facility]; Protocol Last Admin: 12/11/19 06:05 Dose: 6 units Documented by: Levetiracetam (Keppra -) 750 mg PO BID [facility] Last Admin: 12/10/19 21:27 Dose: 750 mg Documented by: Levothyroxine Sodium (Synthroid -) 25 mcg PO ACBK [facility] Last Admin: 12/11/19 06:05 Dose: 25 mcg Documented by: Loratadine (Claritin -) 10 mg PO DAILY [facility] Last Admin: 12/10/19 09:44 Dose: 10 mg Documented by: Meclizine HCl (Antivert -) 25 mg PO Q12H PRN PRN Reason: dizziness Last Admin: 12/10/19 16:04 Dose: 25 mg Documented by: Methylprednisolone Sodium Succinate (Solu-Medrol -) 40 mg IVPUSH Q8H-IV [facility] Last Admin: 12/11/19 02:11 Dose: 40 mg Documented by: Montelukast Sodium (Singulair -) 10 mg PO HS [facility] Last Admin: 12/10/19 21:27 Dose: 10 mg Documented by: Pantoprazole Sodium (Protonix -) 40 mg PO DAILY [facility] Last Admin: 12/10/19 09:44 Dose: 40 mg Documented by: Sodium Chloride ([place] Nasal [place] -) 2 spray NS BID PRN PRN Reason: NASAL CONGESTION Last Admin: 12/10/19 09:46 Dose: 2 500s Documented by: Sodium Zirconium Cyclosilicate (Lokelma) 10 gm PO DAILY [facility] Stop: 12/12/19 10:01 ASSESSMENT AND PLAN:79 year old female history of asthma, hypertension, hyperlipidemia, hypothyroidism, h/o DVT, seizure disorder admitted for asthma exacerbation Impression: Acute respiratory failure secondary to acute on chronic Asthma Exacerbation. Possible pneumonia. Problem List - Problems (1) Asthma exacerbation Assessment/Plan: Improving on steroids and DuoNeb, will taper IV steroids, and lab work plus ICS combination follow-up pulmonary recommendations. Problems reviewed: Yes Code(s): J45.901 - UNSPECIFIED ASTHMA WITH (ACUTE) EXACERBATION Qualifiers: Asthma severity: moderate Asthma persistence: unspecified Qualified Code(s): J45.901 - Unspecified asthma with (acute) exacerbation (2) Seizure disorder Assessment/Plan: Continue Keppra Problems reviewed: Yes Code(s): G40.909 - EPILEPSY, UNSP, NOT INTRACTABLE, WITHOUT STATUS EPILEPTICUS (3) Pneumonia Assessment/Plan: Continue levofloxacin total 7 days of antibiotic Problems reviewed: Yes Code(s): J18.9 - PNEUMONIA, UNSPECIFIED ORGANISM (4) Hypertension Assessment/Plan: Well-controlled continue all home medications. Problems reviewed: Yes Code(s): I10 - ESSENTIAL (PRIMARY) HYPERTENSION (5) Hypothyroid Assessment/Plan: Continue levothyroxine Problems reviewed: Yes Code(s): E03.9 - HYPOTHYROIDISM, UNSPECIFIED
[2019-12-11] MEDS: ALBUTEROL SO4 2.5/IPRATROPIUM 0.5 INH SOL 3 ML VIAL.NEB. NEB SCH ×4 (08:45→20:45)
[2019-12-11] MEDS: APIXABAN 2.5 MG TABLET PO SCH ×2 (09:17→21:32)
[2019-12-11] MEDS: LORATADINE 10 MG TABLET PO SCH (09:17)
[2019-12-11] MEDS: ASPIRIN COATED 81 MG TABLET.EC PO SCH (09:17)
[2019-12-11] MEDS: HYDROCHLOROTHIAZIDE 25 MG TABLET (FP) PO SCH (09:17)
[2019-12-11] MEDS: PANTOPRAZOLE 40 MG TABLET PO SCH (09:17)
[2019-12-11] MEDS: MECLIZINE HCL 25 MG TABLET (FP) PO PRN (09:29)
[2019-12-11] MEDS: levETIRAcetam 500 MG TABLET (FP) PO SCH ×2 (09:30→21:31)
[2019-12-11] MEDS: BUDESONIDE/FORMETEROL FUMARATE 160/4.5 mcg INHALER IH SCH ×2 (09:31→21:32)
[2019-12-11] MEDS: FLUTICASONE PROP 0.05% 16 GM NASAL SPRAY NS SCH ×2 (09:32→21:33)
[2019-12-11] MEDS: SODIUM CHLORIDE NASAL SPRAY 44 ML BOTTLE NS PRN (09:32)
[2019-12-11] MEDS: SODIUM ZIRCONIUM CYCLOSILICATE (LOKELMA) 5 GM PACKET PO SCH (10:09)
[2019-12-11 11:25] LABS: ANISOCYTOSIS 1+; MACROCYTOSIS 0; PLATELET ESTIMATE NORMAL; TARGET CELLS 1+
[2019-12-11] MEDS ORDERED: INSULIN (NOVOLOG) ASPART 100 UNITS/ML 10ML VIAL ONE ×2 (11:27→16:55)
--- NOTE | 2019-12-11 12:10 | PN ---
Progress Note (short form) - Note Progress Note: Breathing improving. No acute events overnight. Intake & Output 12/08/19 12/09/19 12/10/19 12/11/19 23:59 23:59 23:59 23:59 Intake Total 700 1000 1160 250 Balance 700 1000 1160 250 Last Vital Signs Temp Pulse Resp BP Pulse Ox 98.5 F 96 H 20 117/53 L 95 12/11/19 10:00 12/11/19 10:00 12/11/19 10:00 12/11/19 10:00 12/10/19 21:00 Active Medications Acetaminophen (Tylenol -) 650 mg PO Q6H PRN PRN Reason: HEADACHE Last Admin: 12/09/19 09:35 Dose: 650 mg Documented by: Albuterol/Ipratropium (Duoneb -) 1 amp NEB RQID [facility] Last Admin: 12/11/19 11:41 Dose: 1 amp Documented by: Apixaban (Eliquis -) 2.5 mg PO BID [facility] Last Admin: 12/11/19 09:17 Dose: 2.5 mg Documented by: Aspirin (Ecotrin -) 81 mg PO DAILY [facility] Last Admin: 12/11/19 09:17 Dose: 81 mg Documented by: Atorvastatin Calcium (Lipitor -) 20 mg PO HS [facility] Last Admin: 12/10/19 21:27 Dose: 20 mg Documented by: Budesonide/Formoterol Fumarate (Symbicort 160/4.5mcg -) 2 puff IH BID [facility] Last Admin: 12/11/19 09:31 Dose: 2 puff Documented by: Fluticasone Propionate (Flonase -) 2 spray NS BID [facility] Last Admin: 12/11/19 09:32 Dose: 2 sprays Documented by: Guaifenesin/Codeine Phosphate (Robitussin Ac -) 5 ml PO TID PRN PRN Reason: COUGH Last Admin: 12/11/19 09:29 Dose: 5 ml Documented by: Hydrochlorothiazide (Hctz -) 25 mg PO DAILY [facility] Last Admin: 12/11/19 09:17 Dose: 25 mg Documented by: Insulin Aspart (Novolog Vial Sliding Scale -) 1 vial SQ TIDAC [facility]; Protocol Last Admin: 12/11/19 11:27 Dose: 6 units Documented by: Levetiracetam (Keppra -) 750 mg PO BID [facility] Last Admin: 12/11/19 09:30 Dose: 750 mg Documented by: Levothyroxine Sodium (Synthroid -) 25 mcg PO ACBK [facility] Last Admin: 12/11/19 06:05 Dose: 25 mcg Documented by: Loratadine (Claritin -) 10 mg PO DAILY [facility] Last Admin: 12/11/19 09:17 Dose: 10 mg Documented by: Meclizine HCl (Antivert -) 25 mg PO Q12H PRN PRN Reason: dizziness Last Admin: 12/11/19 09:29 Dose: 25 mg Documented by: Methylprednisolone Sodium Succinate (Solu-Medrol -) 40 mg IVPUSH Q8H-IV [facility] Last Admin: 12/11/19 09:17 Dose: 40 mg Documented by: Montelukast Sodium (Singulair -) 10 mg PO HS [facility] Last Admin: 12/10/19 21:27 Dose: 10 mg Documented by: Pantoprazole Sodium (Protonix -) 40 mg PO DAILY [facility] Last Admin: 12/11/19 09:17 Dose: 40 mg Documented by: Prednisone (Deltasone -) 40 mg PO BID [facility] Sodium Chloride ([place] Nasal [place] -) 2 spray NS BID PRN PRN Reason: NASAL CONGESTION Last Admin: 12/11/19 09:32 Dose: 2 500s Documented by: Sodium Zirconium Cyclosilicate (Lokelma) 10 gm PO DAILY [facility] Stop: 12/12/19 10:01 Last Admin: 12/11/19 10:09 Dose: 10 gm Documented by: Gen: less tachypneic Heart: RRR Lung: Less bilateral rhonchi, wheezes Abd: soft, nontender Ext: no edema Laboratory Results - last 24 hr 12/05/19 12/10/19 12/10/19 14:53 08:00 15:59 WBC RBC Hgb Hct MCV MCH MCHC RDW Plt Count MPV Absolute Neuts (auto) Neutrophils % Neutrophils % (Manual) 89.7 H Band Neutrophils % 0.0 Lymphocytes % Lymphocytes % (Manual) 3.1 L D Monocytes % Monocytes % (Manual) 5 D Eosinophils % Eosinophils % (Manual) 0.0 Basophils % Basophils % (Manual) 0.0 Myelocytes % (Man) 0 Promyelocytes % (Man) 0 Blast Cells % (Manual) 0 Nucleated RBC % Metamyelocytes 2 D Hypochromia 0 Platelet Estimate Normal Polychromasia 0 Poikilocytosis 0 Anisocytosis 0 Microcytosis 0 Macrocytosis 0 Target Cells Stomatocytes Sodium Potassium Chloride Carbon Dioxide Anion Gap BUN Creatinine Est GFR (CKD-EPI)AfAm Est GFR (CKD-EPI)NonAf POC Glucometer 271 Random Glucose Calcium Adenovirus (PCR) Negative Human Metapneumovir PCR Negative Influenza A (H1) PCR Negative Influenza B (RT-PCR) Negative Parainfluenza 1 (PCR) Negative Parainfluenza 2 (PCR) Negative Parainfluenza 3 (PCR) Negative RSV Type A (PCR) Negative RSV Type B (PCR) Negative Rhinovirus (PCR) Positive H 12/10/19 12/11/19 12/11/19 16:51 06:01 06:40 WBC 19.0 H RBC 4.71 Hgb 13.0 Hct 40.2 MCV 85.4 MCH 27.6 MCHC 32.3 RDW 16.2 H Plt Count 236 MPV 9.1 Absolute Neuts (auto) 17.6 H Neutrophils % 92.5 H Neutrophils % (Manual) 93.0 H Band Neutrophils % 1.0 Lymphocytes % 3.9 L D Lymphocytes % (Manual) 1.0 L D Monocytes % 3.5 L Monocytes % (Manual) 0 L D Eosinophils % 0.0 D Eosinophils % (Manual) 0.0 Basophils % 0.1 Basophils % (Manual) 0.0 Myelocytes % (Man) 2 D Promyelocytes % (Man) 0 Blast Cells % (Manual) 0 Nucleated RBC % 0 Metamyelocytes 2 Hypochromia 0 Platelet Estimate Normal Polychromasia 0 Poikilocytosis 1+ Anisocytosis 1+ Microcytosis 1+ Macrocytosis 0 Target Cells 1+ Stomatocytes 1+ Sodium Potassium 4.6 Chloride Carbon Dioxide Anion Gap BUN Creatinine Est GFR (CKD-EPI)AfAm Est GFR (CKD-EPI)NonAf POC Glucometer 276 Random Glucose Calcium Adenovirus (PCR) Human Metapneumovir PCR Influenza A (H1) PCR Influenza B (RT-PCR) Parainfluenza 1 (PCR) Parainfluenza 2 (PCR) Parainfluenza 3 (PCR) RSV Type A (PCR) RSV Type B (PCR) Rhinovirus (PCR) 12/11/19 12/11/19 06:40 11:13 WBC RBC Hgb Hct MCV MCH MCHC RDW Plt Count MPV Absolute Neuts (auto) Neutrophils % Neutrophils % (Manual) Band Neutrophils % Lymphocytes % Lymphocytes % (Manual) Monocytes % Monocytes % (Manual) Eosinophils % Eosinophils % (Manual) Basophils % Basophils % (Manual) Myelocytes % (Man) Promyelocytes % (Man) Blast Cells % (Manual) Nucleated RBC % Metamyelocytes Hypochromia Platelet Estimate Polychromasia Poikilocytosis Anisocytosis Microcytosis Macrocytosis Target Cells Stomatocytes Sodium 139 Potassium 5.9 H Chloride 101 Carbon Dioxide 31 Anion Gap 6 L BUN 33.1 H Creatinine 1.1 Est GFR (CKD-EPI)AfAm 54.91 Est GFR (CKD-EPI)NonAf 47.38 POC Glucometer 268 Random Glucose 280 H Calcium 8.6 Adenovirus (PCR) Human Metapneumovir PCR Influenza A (H1) PCR Influenza B (RT-PCR) Parainfluenza 1 (PCR) Parainfluenza 2 (PCR) Parainfluenza 3 (PCR) RSV Type A (PCR) RSV Type B (PCR) Rhinovirus (PCR) Problem List - Problems (1) Asthma exacerbation Code(s): J45.901 - UNSPECIFIED ASTHMA WITH (ACUTE) EXACERBATION Qualifiers: Asthma severity: unspecified severity Asthma persistence: unspecified Qualified Code(s): J45.901 - Unspecified asthma with (acute) exacerbation A/P Acute Asthma Exacerbation Seizure Disorder HTN Hyperlipidemia h/o DVT - Can attempt to change to Prednisone - inhaled bronchodilators - LABA - O2 to keep SpO2 >90% - nasal steroids - singulair - on empiric antibiotics - continue anticoagulation Dr Christopher
--- NOTE | 2019-12-11 15:20 | PN ---
Physical Exam: SUBJECTIVE: Patient seen and examined at bedside. Reports improved breathing. OBJECTIVE: Vital Signs Period Temp Pulse Resp BP Sys/[place] Pulse Ox Last 24 Hr 97.8 F-98.5 F 84-96 20-20 99-132/53-60 95-98 GENERAL: A&Ox3, no acute distress LUNGS: Wheezing noted that is improved HEART: mildly tachycardic, no murmurs ABDOMEN: Soft, nontender, BS present Laboratory Results - last 24 hr 12/05/19 12/10/19 12/10/19 14:53 15:59 16:51 WBC RBC Hgb Hct MCV MCH MCHC RDW Plt Count MPV Absolute Neuts (auto) Neutrophils % Neutrophils % (Manual) Band Neutrophils % Lymphocytes % Lymphocytes % (Manual) Monocytes % Monocytes % (Manual) Eosinophils % Eosinophils % (Manual) Basophils % Basophils % (Manual) Myelocytes % (Man) Promyelocytes % (Man) Blast Cells % (Manual) Nucleated RBC % Metamyelocytes Hypochromia Platelet Estimate Polychromasia Poikilocytosis Anisocytosis Microcytosis Macrocytosis Target Cells Stomatocytes Sodium Potassium 4.6 Chloride Carbon Dioxide Anion Gap BUN Creatinine Est GFR (CKD-EPI)AfAm Est GFR (CKD-EPI)NonAf POC Glucometer 271 Random Glucose Calcium Adenovirus (PCR) Negative Human Metapneumovir PCR Negative Influenza A (H1) PCR Negative Influenza B (RT-PCR) Negative Parainfluenza 1 (PCR) Negative Parainfluenza 2 (PCR) Negative Parainfluenza 3 (PCR) Negative RSV Type A (PCR) Negative RSV Type B (PCR) Negative Rhinovirus (PCR) Positive H 12/11/19 12/11/19 12/11/19 06:01 06:40 06:40 WBC 19.0 H RBC 4.71 Hgb 13.0 Hct 40.2 MCV 85.4 MCH 27.6 MCHC 32.3 RDW 16.2 H Plt Count 236 MPV 9.1 Absolute Neuts (auto) 17.6 H Neutrophils % 92.5 H Neutrophils % (Manual) 93.0 H Band Neutrophils % 1.0 Lymphocytes % 3.9 L D Lymphocytes % (Manual) 1.0 L D Monocytes % 3.5 L Monocytes % (Manual) 0 L D Eosinophils % 0.0 D Eosinophils % (Manual) 0.0 Basophils % 0.1 Basophils % (Manual) 0.0 Myelocytes % (Man) 2 D Promyelocytes % (Man) 0 Blast Cells % (Manual) 0 Nucleated RBC % 0 Metamyelocytes 2 Hypochromia 0 Platelet Estimate Normal Polychromasia 0 Poikilocytosis 1+ Anisocytosis 1+ Microcytosis 1+ Macrocytosis 0 Target Cells 1+ Stomatocytes 1+ Sodium 139 Potassium 5.9 H Chloride 101 Carbon Dioxide 31 Anion Gap 6 L BUN 33.1 H Creatinine 1.1 Est GFR (CKD-EPI)AfAm 54.91 Est GFR (CKD-EPI)NonAf 47.38 POC Glucometer 276 Random Glucose 280 H Calcium 8.6 Adenovirus (PCR) Human Metapneumovir PCR Influenza A (H1) PCR Influenza B (RT-PCR) Parainfluenza 1 (PCR) Parainfluenza 2 (PCR) Parainfluenza 3 (PCR) RSV Type A (PCR) RSV Type B (PCR) Rhinovirus (PCR) 12/11/19 11:13 WBC RBC Hgb Hct MCV MCH MCHC RDW Plt Count MPV Absolute Neuts (auto) Neutrophils % Neutrophils % (Manual) Band Neutrophils % Lymphocytes % Lymphocytes % (Manual) Monocytes % Monocytes % (Manual) Eosinophils % Eosinophils % (Manual) Basophils % Basophils % (Manual) Myelocytes % (Man) Promyelocytes % (Man) Blast Cells % (Manual) Nucleated RBC % Metamyelocytes Hypochromia Platelet Estimate Polychromasia Poikilocytosis Anisocytosis Microcytosis Macrocytosis Target Cells Stomatocytes Sodium Potassium Chloride Carbon Dioxide Anion Gap BUN Creatinine Est GFR (CKD-EPI)AfAm Est GFR (CKD-EPI)NonAf POC Glucometer 268 Random Glucose Calcium Adenovirus (PCR) Human Metapneumovir PCR Influenza A (H1) PCR Influenza B (RT-PCR) Parainfluenza 1 (PCR) Parainfluenza 2 (PCR) Parainfluenza 3 (PCR) RSV Type A (PCR) RSV Type B (PCR) Rhinovirus (PCR) Active Medications Generic Name Dose Route Start Last Admin Trade Name Freq PRN Reason Stop Dose Admin Acetaminophen 650 mg 12/07/19 09:14 12/09/19 09:35 Tylenol - PO 650 mg Q6H PRN Administration HEADACHE Albuterol/Ipratropium 1 amp 12/09/19 12:00 12/11/19 11:41 Duoneb - NEB 1 amp RQID [facility] Administration Apixaban 2.5 mg 12/03/19 22:00 12/11/19 09:17 Eliquis - PO 2.5 mg BID [facility] Administration Aspirin 81 mg 12/04/19 10:00 12/11/19 09:17 Ecotrin - PO 81 mg DAILY [facility] Administration Atorvastatin Calcium 20 mg 12/03/19 22:00 12/10/19 21:27 Lipitor - PO 20 mg HS [facility] Administration Budesonide/Formoterol Fumarate 2 puff 12/07/19 22:00 12/11/19 09:31 Symbicort 160/4.5mcg - IH 2 puff BID [facility] Administration Fluticasone Propionate 2 spray 12/04/19 13:45 12/11/19 09:32 Flonase - NS 2 sprays BID [facility] Administration Guaifenesin/Codeine Phosphate 5 ml 12/06/19 13:36 12/11/19 09:29 Robitussin Ac - PO 5 ml TID PRN Administration COUGH Hydrochlorothiazide 25 mg 12/11/19 10:00 12/11/19 09:17 Hctz - PO 25 mg DAILY [facility] Administration Insulin Aspart 1 vial 12/09/19 16:30 12/11/19 11:27 Novolog Vial Sliding Scale - SQ 6 units TIDAC [facility] Administration Protocol Levetiracetam 750 mg 12/03/19 22:00 12/11/19 09:30 Keppra - PO 750 mg BID [facility] Administration Levothyroxine Sodium 25 mcg 12/04/19 07:00 12/11/19 06:05 Synthroid - PO 25 mcg ACBK [facility] Administration Loratadine 10 mg 12/05/19 10:00 12/11/19 09:17 Claritin - PO 10 mg DAILY [facility] Administration Meclizine HCl 25 mg 12/03/19 17:07 12/11/19 09:29 Antivert - PO 25 mg Q12H PRN Administration dizziness Methylprednisolone Sodium Succinate 40 mg 12/09/19 18:00 12/11/19 09:17 Solu-Medrol - IVPUSH 40 mg Q8H-IV [facility] Administration Montelukast Sodium 10 mg 12/03/19 22:00 12/10/19 21:27 Singulair - PO 10 mg HS [facility] Administration Pantoprazole Sodium 40 mg 12/04/19 10:00 12/11/19 09:17 Protonix - PO 40 mg DAILY [facility] Administration Prednisone 40 mg 12/11/19 22:00 Deltasone - PO BID [facility] Sodium Chloride 2 spray 12/04/19 16:58 12/11/19 09:32 [place] Nasal [place] - NS 2 500s BID PRN Administration NASAL CONGESTION Sodium Zirconium Cyclosilicate 10 gm 12/11/19 10:00 12/11/19 10:09 Lokelma PO 12/12/19 10:01 10 gm DAILY [facility] Administration ASSESSMENT/PLAN: 79 year old female history of asthma, hypertension, hyperlipidemia, hypothyroidism, h/o DVT, seizure disorder admitted for asthma exacerbation #Asthma Exacerbation: appears to be improving, yet patient is wheezing on exam -change to prednisone 40 BID, tomorrow will do daily dosing and taper on discharge -continue duonebs -stop antibiotics -continue singulair -encouraged peak flow measurement -following pulm recommendations -LABA continue #Dizziness: mildly improved from yesterday -continue meclizine -encouraged patient only to walk with assistance #Hypertension -Not on medication #Hyperlipidemia -continue atorvastatin 20 #Hypothyroidism -continue synthroid 25 mcg #Hx DVT -continue eliquis 2.5 BID #Seizure Disorder -continue keppra 750 BID #FEN -no standing fluids -replete lytes as necessary in AM -diet ordered #Prophylaxis -on eliquis #Disposition -anticipate DC tomorrow Visit type - Emergency Visit Emergency Visit: No - New Patient This patient is new to me today: Yes Date on this admission: 12/11/19 - Critical Care Critical Care patient: No ATTENDING PHYSICIAN STATEMENT I saw and evaluated the patient. I reviewed the resident's note and discussed the case with the resident. I agree with the resident's findings and plan as documented. SUBJECTIVE: OBJECTIVE: ASSESSMENT AND PLAN:
[2019-12-11] MEDS: ATORVASTATIN CA 20 MG TABLET (FP) PO SCH (21:32)
[2019-12-11] MEDS: MONTELUKAST NA 10 MG TABLET PO SCH (21:32)
[2019-12-11] MEDS: predniSONE 20 MG TABLET (UD) PO SCH (21:32)
[2019-12-12] MEDS: methylPREDNISolone NA SUCC 40 MG/1 ML VIAL IVPUSH SCH ×2 (01:22→09:59)
[2019-12-12] MEDS: LEVOTHYROXINE NA 25 MCG TABLET (FP) PO SCH (06:41)
[2019-12-12] MEDS: INSULIN SLIDING SCALE (NOVOLOG) 1 VIAL SQ SCH ×2 (06:43→11:57)
[2019-12-12] MEDS: ALBUTEROL SO4 2.5/IPRATROPIUM 0.5 INH SOL 3 ML VIAL.NEB. NEB SCH ×2 (07:40→11:30)
[2019-12-12] MEDS ORDERED: PT OWN MED DRAWER 7, Y5N ONE (09:26)
[2019-12-12] MEDS: ASPIRIN COATED 81 MG TABLET.EC PO SCH (09:42)
[2019-12-12] MEDS: HYDROCHLOROTHIAZIDE 25 MG TABLET (FP) PO SCH (09:42)
[2019-12-12] MEDS: LORATADINE 10 MG TABLET PO SCH (09:42)
[2019-12-12] MEDS: levETIRAcetam 500 MG TABLET (FP) PO SCH (09:42)
[2019-12-12] MEDS: predniSONE 20 MG TABLET (UD) PO SCH (09:42)
[2019-12-12] MEDS: APIXABAN 2.5 MG TABLET PO SCH (09:42)
[2019-12-12] MEDS: SODIUM ZIRCONIUM CYCLOSILICATE (LOKELMA) 5 GM PACKET PO SCH (09:43)
[2019-12-12] MEDS: PANTOPRAZOLE 40 MG TABLET PO SCH (09:43)
[2019-12-12] MEDS: guaiFENesin/CODEINE 5 ML UNIT-DOSE CUPS PO PRN (09:43)
[2019-12-12] MEDS: FLUTICASONE PROP 0.05% 16 GM NASAL SPRAY NS SCH (09:44)
[2019-12-12] MEDS: BUDESONIDE/FORMETEROL FUMARATE 160/4.5 mcg INHALER IH SCH (09:46)
[2019-12-12] MEDS: ACETAMINOPHEN 325 MG TABLET (FP) PO PRN (09:51)
[2019-12-12] MEDS: MECLIZINE HCL 25 MG TABLET (FP) PO PRN (09:51)
[2019-12-12 10:01] VITALS: BP 137/56; PULSE 105; TEMP 98.3
[2019-12-12] MEDS ORDERED: QUEtiapine FUMARATE 25 MG TABLET PO SCH (11:00)
[2019-12-12] MEDS ORDERED: INSULIN (NOVOLOG) ASPART 100 UNITS/ML 10ML VIAL ONE (11:56)
[2019-12-12 12:13] LABS: BASO % 0.3 % (0-2.0); HEMATOCRIT 42.5 % (32.4-45.2); HEMOGLOBIN 13.8 GM/dL (10.7-15.3); LYMPH % 5.6 % (8-40); MCH 27.4 pg (25.7-33.7); MCHC 32.4 g/dl (32.0-36.0); MEAN CELL VOLUME 84.5 fl (80-96); MEAN PLT VOLUME 8.9 fl (7.5-11.1); MONO % 6.3 % (3.8-10.2); NEUT % 87.8 % (42.8-82.8); PLATELET COUNT 232 K/MM3 (134-434); RBC 5.03 M/mm3 (3.60-5.2); RDW 15.9 % (11.6-15.6); WHITE BLOOD COUNT 22.7 K/mm3 (4.0-10.0)
--- NOTE | 2019-12-12 12:26 | PN ---
Progress Note (short form) - Note Progress Note: Breathing improving. Anxious. Multiple symptoms. (?) vaginal bleed> No acute events overnight. Intake & Output 12/09/19 12/10/19 12/11/19 12/12/19 23:59 23:59 23:59 23:59 Intake Total 1000 1160 350 200 Balance 1000 1160 350 200 Weight 159 lb Last Vital Signs Temp Pulse Resp BP Pulse Ox 98.3 F 105 H 20 137/56 L 98 12/12/19 09:59 12/12/19 09:59 12/12/19 09:59 12/12/19 09:59 12/11/19 20:17 Active Medications Acetaminophen (Tylenol -) 650 mg PO Q6H PRN PRN Reason: HEADACHE Last Admin: 12/12/19 09:51 Dose: 650 mg Documented by: Albuterol/Ipratropium (Duoneb -) 1 amp NEB RQID [facility] Last Admin: 12/12/19 11:30 Dose: 1 amp Documented by: Apixaban (Eliquis -) 2.5 mg PO BID [facility] Last Admin: 12/12/19 09:42 Dose: 2.5 mg Documented by: Aspirin (Ecotrin -) 81 mg PO DAILY [facility] Last Admin: 12/12/19 09:42 Dose: 81 mg Documented by: Atorvastatin Calcium (Lipitor -) 20 mg PO HS [facility] Last Admin: 12/11/19 21:32 Dose: 20 mg Documented by: Budesonide/Formoterol Fumarate (Symbicort 160/4.5mcg -) 2 puff IH BID [facility] Last Admin: 12/12/19 09:46 Dose: 2 puff Documented by: Fluticasone Propionate (Flonase -) 2 spray NS BID [facility] Last Admin: 12/12/19 09:44 Dose: 2 sprays Documented by: Hydrochlorothiazide (Hctz -) 25 mg PO DAILY [facility] Last Admin: 12/12/19 09:42 Dose: 25 mg Documented by: Insulin Aspart (Novolog Vial Sliding Scale -) 1 vial SQ TIDAC [facility]; Protocol Last Admin: 12/12/19 11:57 Dose: 6 units Documented by: Levetiracetam (Keppra -) 750 mg PO BID [facility] Last Admin: 12/12/19 09:42 Dose: 750 mg Documented by: Levothyroxine Sodium (Synthroid -) 25 mcg PO ACBK [facility] Last Admin: 12/12/19 06:41 Dose: 25 mcg Documented by: Loratadine (Claritin -) 10 mg PO DAILY [facility] Last Admin: 12/12/19 09:42 Dose: 10 mg Documented by: Meclizine HCl (Antivert -) 25 mg PO Q12H PRN PRN Reason: dizziness Last Admin: 12/12/19 09:51 Dose: 25 mg Documented by: Montelukast Sodium (Singulair -) 10 mg PO HS [facility] Last Admin: 12/11/19 21:32 Dose: 10 mg Documented by: Pantoprazole Sodium (Protonix -) 40 mg PO DAILY [facility] Last Admin: 12/12/19 09:43 Dose: 40 mg Documented by: Prednisone (Deltasone -) 40 mg PO BID [facility] Last Admin: 12/12/19 09:42 Dose: 40 mg Documented by: Quetiapine Fumarate (Seroquel -) 12.5 mg PO DAILY [facility] Last Admin: 12/12/19 11:58 Dose: 12.5 mg Documented by: Sodium Chloride ([place] Nasal [place] -) 2 spray NS BID PRN PRN Reason: NASAL CONGESTION Last Admin: 12/11/19 09:32 Dose: 2 500s Documented by: Gen: Anxious Heart: RRR Lung: Few scattered bilateral rhonchi, No wheezes appreciated Abd: soft, nontender Ext: no edema Laboratory Results - last 24 hr 12/11/19 12/12/19 12/12/19 16:31 06:42 11:55 WBC RBC Hgb Hct MCV MCH MCHC RDW Plt Count MPV Absolute Neuts (auto) Neutrophils % Lymphocytes % Monocytes % Eosinophils % Basophils % Nucleated RBC % POC Glucometer 198 275 253 12/12/19 12:05 WBC 22.7 H RBC 5.03 Hgb 13.8 Hct 42.5 MCV 84.5 MCH 27.4 MCHC 32.4 RDW 15.9 H Plt Count 232 MPV 8.9 Absolute Neuts (auto) 19.9 H Neutrophils % 87.8 H Lymphocytes % 5.6 L D Monocytes % 6.3 Eosinophils % 0.0 Basophils % 0.3 Nucleated RBC % 0 POC Glucometer Problem List - Problems (1) Asthma exacerbation Code(s): J45.901 - UNSPECIFIED ASTHMA WITH (ACUTE) EXACERBATION Qualifiers: Asthma severity: unspecified severity Asthma persistence: unspecified Qualified Code(s): J45.901 - Unspecified asthma with (acute) exacerbation A/P Acute Asthma Exacerbation Seizure Disorder HTN Hyperlipidemia h/o DVT - Change to Prednisone - inhaled bronchodilators - LABA - O2 to keep SpO2 >90% - nasal steroids - singulair - ABX - continue anticoagulation - Further workup per Hospitalist There is no Pulmonary contraindication for DC planning Dr Christopher
--- NOTE | 2019-12-12 13:10 | PN ---
Progress Note, Physician Chief Complaint: Patient still has multiple problems complaint of dizziness, shortness of breath, cough, does not want to go home. - Current Medication List Current Medications: Active Medications Acetaminophen (Tylenol -) 650 mg PO Q6H PRN PRN Reason: HEADACHE Last Admin: 12/12/19 09:51 Dose: 650 mg Documented by: Albuterol/Ipratropium (Duoneb -) 1 amp NEB RQID [facility] Last Admin: 12/12/19 11:30 Dose: 1 amp Documented by: Apixaban (Eliquis -) 2.5 mg PO BID [facility] Last Admin: 12/12/19 09:42 Dose: 2.5 mg Documented by: Aspirin (Ecotrin -) 81 mg PO DAILY [facility] Last Admin: 12/12/19 09:42 Dose: 81 mg Documented by: Atorvastatin Calcium (Lipitor -) 20 mg PO HS [facility] Last Admin: 12/11/19 21:32 Dose: 20 mg Documented by: Budesonide/Formoterol Fumarate (Symbicort 160/4.5mcg -) 2 puff IH BID [facility] Last Admin: 12/12/19 09:46 Dose: 2 puff Documented by: Fluticasone Propionate (Flonase -) 2 spray NS BID [facility] Last Admin: 12/12/19 09:44 Dose: 2 sprays Documented by: Hydrochlorothiazide (Hctz -) 25 mg PO DAILY [facility] Last Admin: 12/12/19 09:42 Dose: 25 mg Documented by: Insulin Aspart (Novolog Vial Sliding Scale -) 1 vial SQ TIDAC [facility]; Protocol Last Admin: 12/12/19 11:57 Dose: 6 units Documented by: Levetiracetam (Keppra -) 750 mg PO BID [facility] Last Admin: 12/12/19 09:42 Dose: 750 mg Documented by: Levothyroxine Sodium (Synthroid -) 25 mcg PO ACBK [facility] Last Admin: 12/12/19 06:41 Dose: 25 mcg Documented by: Loratadine (Claritin -) 10 mg PO DAILY [facility] Last Admin: 12/12/19 09:42 Dose: 10 mg Documented by: Meclizine HCl (Antivert -) 25 mg PO Q12H PRN PRN Reason: dizziness Last Admin: 12/12/19 09:51 Dose: 25 mg Documented by: Montelukast Sodium (Singulair -) 10 mg PO HS [facility] Last Admin: 12/11/19 21:32 Dose: 10 mg Documented by: Pantoprazole Sodium (Protonix -) 40 mg PO DAILY [facility] Last Admin: 12/12/19 09:43 Dose: 40 mg Documented by: Prednisone (Deltasone -) 40 mg PO BID [facility] Last Admin: 12/12/19 09:42 Dose: 40 mg Documented by: Quetiapine Fumarate (Seroquel -) 12.5 mg PO DAILY [facility] Last Admin: 12/12/19 11:58 Dose: 12.5 mg Documented by: Sodium Chloride ([place] Nasal [place] -) 2 spray NS BID PRN PRN Reason: NASAL CONGESTION Last Admin: 12/11/19 09:32 Dose: 2 500s Documented by: - Objective Vital Signs: Vital Signs Temperature 98.3 F 12/12/19 09:59 Pulse Rate 105 H 12/12/19 09:59 Respiratory Rate 20 12/12/19 09:59 Blood Pressure 137/56 L 12/12/19 09:59 O2 Sat by Pulse Oximetry (%) 98 12/11/19 20:17 General: Elderly woman, not in acute distress HEENT; mucous membranes moist, no anemia, no jaundice, PERRLA, no nystagmus Neck: No JVD, supple, no bruit, thyroid palpably normal, normal carotid pulsations. Chest: Nontender, minimal wheezing. CVS: S1-S2 regular no murmur/gallop/rub Abdomen: Nondistended, soft, bowel sounds present. 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 Code(s): J45.901 - UNSPECIFIED ASTHMA WITH (ACUTE) EXACERBATION Qualifiers: Asthma severity: moderate Asthma persistence: unspecified Qualified Code(s): J45.901 - Unspecified asthma with (acute) exacerbation (2) Seizure disorder Assessment/Plan: Continue Keppra Code(s): G40.909 - EPILEPSY, UNSP, NOT INTRACTABLE, WITHOUT STATUS EPILEPTICUS (3) Pneumonia Assessment/Plan: Continue levofloxacin total 7 days of antibiotic Code(s): J18.9 - PNEUMONIA, UNSPECIFIED ORGANISM (4) Hypertension Assessment/Plan: Well-controlled continue all home medications. Code(s): I10 - ESSENTIAL (PRIMARY) HYPERTENSION (5) Hypothyroid Assessment/Plan: Continue levothyroxine Code(s): E03.9 - HYPOTHYROIDISM, UNSPECIFIED (6) Elevated WBC count Assessment/Plan: Most likely due to steroids we will follow-up BMP. Problems reviewed: Yes Code(s): D72.829 - ELEVATED WHITE BLOOD CELL COUNT, UNSPECIFIED
[2019-12-12 13:17] LABS: CALCIUM 8.2 mg/dL (8.5-10.1); CREATININE 0.9 mg/dL (0.55-1.3); POTASSIUM 4.2 mmol/L (3.5-5.1)
--- NOTE | 2019-12-12 13:33 | DS ---
Physical Examination Vital Signs: Vital Signs Temperature 98.3 F 12/12/19 09:59 Pulse Rate 85 H 12/12/19 09:59 Respiratory Rate 20 12/12/19 09:59 Blood Pressure 137/56 L 12/12/19 09:59 O2 Sat by Pulse Oximetry (%) 98 12/11/19 20:17 General: Elderly woman, not in acute distress HEENT; mucous membranes moist, no anemia, no jaundice, PERRLA, no nystagmus Neck: No JVD, supple, no bruit, thyroid palpably normal, normal carotid pulsations. Chest: Nontender, minimal wheezing. CVS: S1-S2 regular no murmur/gallop/rub Abdomen: Nondistended, soft, bowel sounds present. Extremities: No edema., No cough tenderness, pulses present SAW GRINDER: AO X3 , no gross motor sensory deficit Labs: CBC, BMP 12/12/19 12:05 12/12/19 12:05 Discharge Summary Problems reviewed: Yes Reason For Visit: EXACERBATION OF ASTHMA;SYNCOPE AND COLLAPSE Current Active Problems Asthma exacerbation (Acute) Elevated WBC count (Acute) Fall (Acute) Hypertension (Acute) Hypothyroid (Acute) Pneumonia (Acute) Productive cough (Acute) Syncope and collapse (Acute) Hospital Course: 79 year old female with PMH HTN, HLD, epilepsy, hypothyroidism, asthma, ble dvt presents to the ED with sob, cough, chest pain. she was seen in the ED 11/29/2019 given po antbx, po steroids and sent home, she wasnt feeling better, came back and admitted on November 30, 2019, patient is seen and evaluated by pulmonary, put on IV antibiotic and steroids gradually weaned off the steroids, patient is saturating well, able to walk 100 feet, will try the physical therapist, case discussed with the daughter as per daughter she had recent surgery good can take care of the patient at home we offered possible subacute rehab placement but patient and daughter refused, cleared by pulmonary and PT to discharge home with visiting nurse services will discharge home patient with visiting nurse and prednisone taper. Condition: Improved - Instructions Diet, Activity, Other Instructions: You were seen in the hospital for acute asthma exacerbation and were treated with high dose steroids Please continue to take prednisone on a tapering dose a Prednisone 40mg once a day for 3 days, then Prednisone 30mg once a day for 3 days, then Prednisone 20mg once a day for 3 days, then Prednisone 10mg once a day for 3 days, then Prednisone 5mg once a day for 3 days (break up a 10mg tablet in half), then STOP *Use symbicort inhaler 2 puffs twice a day as well If you experience significant shortness of breath, chest pain, fevers or chills please return to the hospital immediately Referrals: Geovany Yoder MD [Staff Physician] - 1 Week Disposition: VNS/HOME HEALTH CARE - Home Medications Comprehensive Discharge Medication List: Ambulatory Orders Fluticasone Prop 0.05% Nasal [Flonase -] 1 - 2 spray NS BID 04/15/17 Levothyroxine [Synthroid -] 25 mcg PO DAILY 04/15/17 Losartan/Hydrochlorothiazide [Losartan-Hctz 100-25 mg Tab] 1 each PO DAILY 04/15/17 Pantoprazole Sodium [Protonix -] 40 mg PO DAILY 04/15/17 Salmeterol/Fluticasone [Advair 250Mcg/50Mcg -] 1 inh PO BID 05/02/17 Simvastatin 40 mg PO HS 06/13/17 Apixaban [Eliquis] 2.5 mg PO BID 06/11/19 Linaclotide [Linzess] 290 mcg PO DAILY 08/12/19 levETIRAcetam [Keppra -] 750 mg PO BID 08/12/19 Benzonatate 200 mg PO BID 08/13/19 Meclizine HCl [Antivert -] 25 mg PO BID PRN 08/13/19 Albuterol 0.083% Nebulizer Prabha [Ventolin 0.083% Nebulizer Soln -] 1 amp NEB Q4H PRN amp 08/21/19 Albuterol 2.5/Ipratropium 0.5 [Duoneb -] 1 amp NEB RQID amp 08/21/19 Fluticasone/Salmeterol [Advair 250-50 Diskus] 1 each IH BID #1 blst.w.dev 10/21/19 Montelukast Na [Singulair -] 10 mg PO HS #1 tablet 10/21/19 Azithromycin 250 mg PO DAILY #4 tablet 11/29/19 predniSONE [Deltasone -] 40 mg PO DAILY #10 tablet 11/29/19 Budesonide/Formeterol Fumarate [SYMBICORT 160/4.5mcg -] 2 puff IH BID #1 inhaler 12/11/19 Prednisone See Taper PO DAILY #35 tablet 12/11/19
[2019-12-12 14:48] LABS: ANISOCYTOSIS 1+; MACROCYTOSIS 0; PLATELET ESTIMATE NORMAL; TARGET CELLS 1+
[2019-12-13] MEDS ORDERED: predniSONE 20 MG TABLET (UD) PO SCH (10:00)
== END 2019-12-12 15:46 | disposition home health service (06) | DRG 190 ==
LOC: JER 11:43 → JERBED 13:08 → J4S 12-04 11:59 → J6S 12-05 18:16
PROVIDERS: ADMIT Family Medicine; ATTEND Internal Medicine
PROC: 0HQGXZZ Repair Left Hand Skin, External Approach (ICD-10-PCS; principal; 2019-12-03)
DX: J44.0 Chronic obstructive pulmonary disease with (acute) lower respiratory infection (principal); J96.00 Acute respiratory failure, unspecified whether with hypoxia or hypercapnia; J18.9 Pneumonia, unspecified organism; J45.31 Mild persistent asthma with (acute) exacerbation; J44.1 Chronic obstructive pulmonary disease with (acute) exacerbation; I10 Essential (primary) hypertension; E78.5 Hyperlipidemia, unspecified; E11.9 Type 2 diabetes mellitus without complications; E03.9 Hypothyroidism, unspecified; J20.9 Acute bronchitis, unspecified; E87.5 Hyperkalemia; R07.89 Other chest pain; D72.829 Elevated white blood cell count, unspecified; R29.6 Repeated falls; H81.10 Benign paroxysmal vertigo, unspecified ear; I35.0 Nonrheumatic aortic (valve) stenosis; J32.9 Chronic sinusitis, unspecified; E66.9 Obesity, unspecified; Z68.30 Body mass index [BMI] 30.0-30.9, adult; G40.909 Epilepsy, unspecified, not intractable, without status epilepticus; S61.213A Laceration without foreign body of left middle finger without damage to nail, initial encounter; S61.412A Laceration without foreign body of left hand, initial encounter; W18.30XA Fall on same level, unspecified, initial encounter; Y92.89 Other specified places as the place of occurrence of the external cause; Z86.718 Personal history of other venous thrombosis and embolism; Z88.0 Allergy status to penicillin; Z86.73 Personal history of transient ischemic attack (TIA), and cerebral infarction without residual deficits
CPT/HCPCS: 36415; 70450-TC; 71045-TC-FY; 72125-TC; 80048; 80053; 81003; 82308; 82550; 82962; 83036; 83735; 83880; 84100; 84132; 84443; 84484; 85025; 85027; 85610; 85730; 87040; 87070; 87086; 87205; 87633; 87804; 87899; 90715; 93005; 93010; 94640; 97116-GP; 97161-GP; 99285-25; J7030

== ENCOUNTER 2020-04-02 04:38 | Inpatient (IN) | payer BC, OTHER ==
--- NOTE | 2020-04-02 05:22 | PDOC ---
History of Present Illness - General Stated Complaint: S.O.B. Time Seen by Provider: 04/02/20 05:22 History Source: Patient, Family - History of Present Illness Initial Comments: 79 YOF h/o asthma, afib, VA, and DVT presenting with SOB, cough, chest pain, and left arm numbness of 2 days duration. Per patients daughter, patient's asthma has been getting progressively worse over the past 3 days. She has cough productive of green sputum as well as SOB. She has used home nebulizer treatment with no improvement of symptoms. She also complains of some pain in her chest however denies radiation. She also complains of some intermittent numbness in her left arm, however denies numbness any where else, changes in speech, or changes in mental status. She also mentions that patient has felt intermittently hot at night with accompanying chills and night sweats. Denies nausea and vomiting. Is this a multiple visit Asthma Patient?: Yes Timing/Duration: unsure Past History - Travel History Traveled outside of the country in the last 30 days: No Close contact w/someone who was outside of country & ill: No - Medical History Allergies/Adverse Reactions: Allergies Allergy/AdvReac Type Severity Reaction Status Date / Time Penicillins Allergy Swelling Verified 04/02/20 05:27 Home Medications: Ambulatory Orders Levothyroxine [Synthroid -] 25 mcg PO DAILY 04/15/17 Losartan/Hydrochlorothiazide [Losartan-Hctz 100-25 mg Tab] 1 each PO DAILY 04/15/17 Simvastatin 40 mg PO HS 06/13/17 Apixaban [Eliquis] 2.5 mg PO BID 06/11/19 levETIRAcetam [Keppra -] 750 mg PO BID 08/12/19 Benzonatate 200 mg PO BID PRN 08/13/19 Meclizine HCl [Antivert -] 25 mg PO BID PRN 08/13/19 Albuterol 0.083% Nebulizer Prabha [Ventolin 0.083% Nebulizer Soln -] 1 amp NEB Q4H PRN amp 08/21/19 Albuterol 2.5/Ipratropium 0.5 [Duoneb -] 1 amp NEB RQID amp 08/21/19 Montelukast Na [Singulair -] 10 mg PO HS #1 tablet 10/21/19 Budesonide/Formeterol Fumarate [SYMBICORT 160/4.5mcg -] 1 inh PO BID #1 cannister 12/12/19 Guaifenesin 100 mg PO Q4H PRN 04/02/20 Anemia: No Asthma: Yes Cancer: No Cardiac Disorders: Yes (AORTIC STENOSIS) CVA: Yes (tia) COPD: No CHF: No DVT: No Dementia: No Diabetes: Yes GI Disorders: Yes (ULCER, HERNIA) Disorders: No HTN: Yes Hypercholesterolemia: Yes Liver Disease: No Seizures: Yes Thyroid Disease: Yes - Surgical History Abdominal Surgery: No Appendectomy: No Cardiac Surgery: No Cholecystectomy: No Lung Surgery: No Neurologic Surgery: No Orthopedic Surgery: No - Immunization History Immunization Up to Date: Yes - Psycho-Social/Smoking History Smoking Status: No Smoking History: Never smoked Have you smoked in the past 12 months: No Number of Cigarettes Smoked Daily: 0 Review of Systems - Review of Systems Constitutional: Yes: See HPI HEENTM: Yes: See HPI Respiratory: Yes: See HPI Cardiac (ROS): Yes: See HPI ABD/GI: Yes: See HPI : Yes: See HPI Musculoskeletal: Yes: See HPI Integumentary: Yes: See HPI Neurological: Yes: See HPI Endocrine: Yes: See HPI Hematologic/Lymphatic: Yes: See HPI *Physical Exam - Physical Exam General Appearance: Yes: Appropriately Dressed, Moderate Distress HEENT: positive: EOMI, DORA Respiratory/Chest: positive: Labored Respiration, Wheezing Cardiovascular: positive: Regular Rhythm, Regular Rate, S1, S2 Gastrointestinal/Abdominal: positive: Normal Bowel Sounds, Flat Musculoskeletal: positive: Normal Inspection Extremity: positive: Normal Capillary Refill, Normal Inspection Neurologic: positive: manager primary care II-XII NML intact, Fully Oriented, Alert, Normal Mood/Affect, Normal Response, Motor Strength 5/5 ED Treatment Course - LABORATORY CBC & Chemistry Diagram: 04/02/20 06:09 04/02/20 06:09 Medical Decision Making - Medical Decision Making 79 YOF h/o asthma, afib, VA, and DVT presenting with SOB, cough, chest pain, and left arm numbness of 2 days duration. Patients vitals were stable on arrival, physical exam reveals bilateral wheeze on expiration, otherwise wnl. ddx includes but is not limited to: acute asthma exacerbation, pulmonary embolism, heart failure and VA. Plan: CMP,CBC, BNP, Cardiac Enzymes, COVID-19 swab, EKG, Chest CT, Head CT. Will give duoneb and steroids for symptoms relief. Will admit patient given cardiac history, risk factors, and presenting symptoms. Discharge - Discharge Information Problems reviewed: Yes Clinical Impression/Diagnosis: Asthma exacerbation Qualifiers: Asthma severity: unspecified severity Asthma persistence: unspecified Qualified Code(s): J45.901 - Unspecified asthma with (acute) exacerbation Condition: Improved - Follow up/Referral - Patient Discharge Instructions - Post Discharge Activity
--- NOTE | 2020-04-02 05:40 | PDOC ---
Attending Attestation - Resident Resident Name: Rogelio Hale - ED Attending Attestation I have performed the following: I have examined & evaluated the patient, The case was reviewed & discussed with the resident, I agree w/resident's findings & plan - HPI HPI: 04/02/20 06:24 see resident hpi - Physicial Exam PE: 04/02/20 06:25 see resident exam - Medical Decision Making 04/02/20 06:25 79-year-old female with history of asthma now with shortness of breath and end expiratory wheezing Plan for chest x-ray labs EKG DuoNeb, steroids and reevaluation for diuretics as needed Due to left arm heaviness patient's age and history will plan for admission pending results 04/02/20 06:30 Discharge - Discharge Information Problems reviewed: Yes Clinical Impression/Diagnosis: Asthma exacerbation Condition: Fair - Follow up/Referral - Patient Discharge Instructions - Post Discharge Activity
[2020-04-02] MEDS ORDERED: ALBUTEROL SO4 2.5/IPRATROPIUM 0.5 INH SOL 3 ML VIAL.NEB. NEB ONE ×4 (05:47→08:08)
[2020-04-02] MEDS ORDERED: methylPREDNISolone NA SUCC 125 MG/2 ML VIAL IVPUSH ONE (06:42)
[2020-04-02] MEDS ORDERED: methylPREDNISolone NA SUCC 125 MG/2 ML VIAL ONE ×2 (06:48→21:42)
[2020-04-02 06:55] LABS: INR 1.06 (0.83-1.09); PROTHROMBIN TIME (PATIENT) 12.5 SEC (9.7-13.0)
[2020-04-02 06:58] LABS: ACTIVATED PTT 31.4 SECONDS (25.2-36.5)
[2020-04-02 07:00] LABS: BASO % 1.3 % (0-2.0); EOS % 2.2 % (0-4.5); HEMATOCRIT 40.5 % (32.4-45.2); HEMOGLOBIN 12.6 GM/dL (10.7-15.3); LYMPH % 12.9 % (8-40); MCH 27.2 pg (25.7-33.7); MCHC 31.2 g/dl (32.0-36.0); MEAN CELL VOLUME 87.3 fl (80-96); MEAN PLT VOLUME 9.4 fl (7.5-11.1); MONO % 8.4 % (3.8-10.2); NEUT % 75.2 % (42.8-82.8); PLATELET COUNT 218 K/MM3 (134-434); RBC 4.64 M/mm3 (3.60-5.2); WHITE BLOOD COUNT 11.4 K/mm3 (4.0-10.0)
[2020-04-02 07:14] LABS: ALBUMIN 3.3 g/dl (3.4-5.0); ALK PHOS 90 U/L (45-117); ANION GAP 7 MMOL/L (8-16); BILIRUBIN,TOTAL 0.4 mg/dL (0.2-1); BLOOD UREA NITROGEN 22.2 mg/dL (7-18); CHLORIDE 107 mmol/L (98-107); CO2 26 mmol/L (21-32); CREATININE 0.8 mg/dL (0.55-1.3); GLUCOSE,RANDOM 117 mg/dL (74-106); MAGNESIUM 2.1 mg/dL (1.8-2.4); N-TERMINAL BNP 164.1 pg/ml (5-450); POTASSIUM 3.8 mmol/L (3.5-5.1); SGOT/AST 24 U/L (15-37); SGPT/ALT 24 U/L (13-61); SODIUM 140 mmol/L (136-145); TOT PROT 6.2 g/dl (6.4-8.2)
--- NOTE | 2020-04-02 07:26 | PDOC ---
*Physical Exam - Vital Signs Last Vital Signs Temp Pulse Resp BP Pulse Ox 98.3 F 83 21 H 123/59 L 100 04/02/20 04:40 04/02/20 06:12 04/02/20 06:12 04/02/20 06:12 04/02/20 06:24 ED Treatment Course - LABORATORY CBC & Chemistry Diagram: 04/02/20 06:09 04/02/20 06:09 - ADDITIONAL ORDERS Additional order review: Laboratory Results 04/02/20 04/02/20 06:09 06:09 PT with INR 12.50 INR 1.06 PTT (Actin FS) 31.4 Sodium 140 Potassium 3.8 Chloride 107 Carbon Dioxide 26 Anion Gap 7 L BUN 22.2 H Creatinine 0.8 Est GFR (CKD-EPI)AfAm 80.70 Est GFR (CKD-EPI)NonAf 69.63 Random Glucose 117 H Magnesium 2.1 Total Bilirubin 0.4 AST 24 ALT 24 Alkaline Phosphatase 90 Creatine Kinase 59 Troponin I < 0.02 B-Natriuretic Peptide 164.1 Total Protein 6.2 L Albumin 3.3 L 04/02/20 06:09 RBC 4.64 MCV 87.3 MCHC 31.2 L RDW 16.0 H MPV 9.4 Neutrophils % 75.2 Lymphocytes % 12.9 D Monocytes % 8.4 Eosinophils % 2.2 Basophils % 1.3 - Medications Given in the ED: ED Medications Discontinued Medications Generic Name Dose Route Start Last Admin Trade Name Freq PRN Reason Stop Dose Admin Albuterol/Ipratropium 1 amp 04/02/20 05:47 04/02/20 06:03 Duoneb - NEB 04/02/20 05:48 1 amp ONCE ONE Administration Methylprednisolone Sodium Succinate 125 mg 04/02/20 06:42 04/02/20 06:53 Solu-Medrol - IVPUSH 04/02/20 06:43 125 mg ONCE ONE Administration Medical Decision Making - Medical Decision Making 04/02/20 07:[address] - no acute pathology chest CT - chronic lung disease, no PNA/covid signs CXR - no acute pathology EKG - sinus rhythm w PACs, HR 87, QTc 438, no ST changes --- 79 YOF h/o asthma, afib, IA, and DVT presenting with SOB, cough, chest pain, and left arm numbness of 2 days duration. Per patients daughter, patient's asthma has been getting progressively worse over the past 3 days w green sputum cough, SOB not improved w home nebulizer Has asthma exacerbation Low concern for CVA (normal neuro exam, no acute bleed) vs CHF (no extremity swelling, BNP wnl) vs PNA vs covid (no sign on CT) Given duoneb x3, solumedrol w breathing improvement Admitted Dr Morrison for asthma exacerbation Discharge - Discharge Information Problems reviewed: Yes Clinical Impression/Diagnosis: Asthma exacerbation Qualifiers: Asthma severity: unspecified severity Asthma persistence: unspecified Qualified Code(s): J45.901 - Unspecified asthma with (acute) exacerbation Condition: Improved - Follow up/Referral - Patient Discharge Instructions - Post Discharge Activity
[2020-04-02 07:27] LABS: CALCIUM 8.5 mg/dL (8.5-10.1)
--- NOTE | 2020-04-02 12:02 | EKG ---
Test Reason : Blood Pressure : / mmHG Vent. Rate : 087 BPM Atrial Rate : 087 BPM P-R Int : 124 ms QRS Dur : 068 ms QT Int : 364 ms P-R-T Axes : 035 -13 -04 degrees QTc Int : 438 ms SINUS RHYTHM WITH PREMATURE ATRIAL COMPLEXES WITH ABERRANT CONDUCTION OTHERWISE NORMAL ECG WHEN COMPARED WITH ECG OF 17-MAR-2020 08:49, ABERRANT CONDUCTION IS NOW PRESENT Confirmed by MD Slava, Addison ([id number]) on 04/02/2020 12:02:15 PM Referred By: Confirmed By:Addison Pedersen MD
--- NOTE | 2020-04-02 13:21 | HP ---
Admitting History and Physical - Primary Care Physician PCP: Vasquez Abbott - Admission Chief Complaint: sob and cough History of Present Illness: 79 YOF h/o asthma, ?parox afib, VA, and h/o B/L DVT presenting with SOB, cough, chest pain, and left arm numbness of 2 days duration. Per patients daughter, patient's asthma has been getting progressively worse over the past 3 days. She has cough productive of green sputum as well as SOB. She has used home nebulizer treatment with no improvement of symptoms. She also mentions that patient has felt intermittently hot at night. Denies nausea and vomiting. Pt examined by me in the ER Received Solumedrol 125mg and duobnebs here-- feels slightly better Coughing+ Denies left arm numbness denies chest pain denies dizziness no travel history History Source: Patient, Family Member Limitations to Obtaining History: No Limitations - Past Medical History ANIMAL THERAPIST: Yes: CVA, Seizure ( last seizure >10yrs ago), Vertigo Cardiovascular: Yes: Aortic Stenosis, HTN Pulmonary: Yes: Asthma Gastrointestinal: Yes: Gastritis Heme/Onc: Yes: Other (Chronic DVTs) Musculoskeletal: Yes: Other (arthritis (type not specificed)) ENT: Yes: Sinusitis Endocrine: Yes: Hypothyroidism - Past Surgical History Past Surgical History: Yes: Breast Biopsy, Hysterectomy (Possible) - Smoking History Smoking history: Never smoked Have you smoked in the past 12 months: No Aproximately how many cigarettes per day: 0 - Alcohol/Substance Use Hx Alcohol Use: No History of Substance Use: reports: None - Social History ADL: Independent Occupation: retired 20 yrs ago History of Recent Travel: Yes (traveled from [place]) Home Medications - Allergies Allergies/Adverse Reactions: Allergies Allergy/AdvReac Type Severity Reaction Status Date / Time Penicillins Allergy Swelling Verified 04/02/20 05:27 - Home Medications Home Medications: Ambulatory Orders Levothyroxine [Synthroid -] 25 mcg PO DAILY 04/15/17 Losartan/Hydrochlorothiazide [Losartan-Hctz 100-25 mg Tab] 1 each PO DAILY 04/15/17 Simvastatin 40 mg PO HS 06/13/17 Apixaban [Eliquis] 2.5 mg PO BID 06/11/19 levETIRAcetam [Keppra -] 750 mg PO BID 08/12/19 Benzonatate 200 mg PO BID PRN 08/13/19 Meclizine HCl [Antivert -] 25 mg PO BID PRN 08/13/19 Albuterol 0.083% Nebulizer Prabha [Ventolin 0.083% Nebulizer Soln -] 1 amp NEB Q4H PRN amp 08/21/19 Albuterol 2.5/Ipratropium 0.5 [Duoneb -] 1 amp NEB RQID amp 08/21/19 Montelukast Na [Singulair -] 10 mg PO HS #1 tablet 10/21/19 Budesonide/Formeterol Fumarate [SYMBICORT 160/4.5mcg -] 1 inh PO BID #1 cannister 12/12/19 Guaifenesin 100 mg PO Q4H PRN 04/02/20 Review of Systems - Review of Systems Constitutional: reports: Fever. denies: Chills Cardiovascular: reports: Shortness of Breath. denies: Chest Pain, Edema, Palpitations Respiratory: reports: Cough, SOB Neurological: reports: No Symptoms Physical Examination Vital Signs: Vital Signs Temperature 98.3 F 04/02/20 04:40 Pulse Rate 108 H 04/02/20 11:00 Respiratory Rate 18 04/02/20 11:00 Blood Pressure 124/72 04/02/20 13:00 O2 Sat by Pulse Oximetry (%) 98 04/02/20 11:00 Constitutional: Yes: No Distress, Calm Cardiovascular: Yes: Regular Rate and Rhythm, Murmur Respiratory: Yes: Diminished, Rhonchi Gastrointestinal: Yes: Normal Bowel Sounds, Soft, Abdomen, Obese. No: Tenderne ss Edema: No Neurological: Yes: Alert, Oriented Labs: CBC, BMP 04/02/20 06:09 04/02/20 06:09 Imaging - Results Chest X-ray: Image Reviewed Cat Scan: Report Reviewed (CThead- negative, CT chest-- chronic disease, no pneumonitis, pneumonia) EKG: Image Reviewed (NSR) Problem List - Problems (1) Acute bronchitis Code(s): J20.9 - ACUTE BRONCHITIS, UNSPECIFIED Qualifiers: Bronchitis organism: unspecified organism Qualified Code(s): J20.9 - Acute bronchitis, unspecified (2) Acute exacerbation of mild persistent extrinsic asthma Code(s): J45.31 - MILD PERSISTENT ASTHMA WITH (ACUTE) EXACERBATION (3) Hypertension Code(s): I10 - ESSENTIAL (PRIMARY) HYPERTENSION (4) Hypothyroid Code(s): E03.9 - HYPOTHYROIDISM, UNSPECIFIED (5) Hyperlipemia Code(s): E78.5 - HYPERLIPIDEMIA, UNSPECIFIED Qualifiers: Hyperlipidemia type: pure hypercholesterolemia Qualified Code(s): E78.00 - Pure hypercholesterolemia, unspecified (6) Seizure disorder Code(s): G40.909 - EPILEPSY, UNSP, NOT INTRACTABLE, WITHOUT STATUS EPILEPTICUS (7) Paroxysmal A-fib Code(s): I48.0 - PAROXYSMAL ATRIAL FIBRILLATION Assessment/Plan PLAN Start Zithromax iv daily check sputum culture Solumedrol Q6H Add Protonix for GI prophylaxis COVID PCR Albuterol as needed ON ELiquis for Parox. Afib and h/o B/l DVT OOB continue home meds
[2020-04-02] MEDS ORDERED: ALBUTEROL SO4 HFA INHALER IH PRN (13:36)
[2020-04-02] MEDS ORDERED: AZITHROMYCIN IVPB 500 MG/250 ML BAG IVPB ONE (14:13)
[2020-04-02] MEDS: AZITHROMYCIN IVPB 500 MG/250 ML BAG IVPB SCH (14:21)
[2020-04-02] MEDS ORDERED: methylPREDNISolone NA SUCC 40 MG/1 ML VIAL ONE (14:46)
[2020-04-02] MEDS: methylPREDNISolone NA SUCC 40 MG/1 ML VIAL IVPUSH SCH ×2 (16:00→21:56)
[2020-04-02] MEDS ORDERED: ATORVASTATIN CA 20 MG TABLET (FP) ONE (21:41)
[2020-04-02] MEDS ORDERED: APIXABAN 2.5 MG TABLET ONE (21:41)
[2020-04-02] MEDS ORDERED: levETIRAcetam 500 MG TABLET (FP) PO ONE (21:41)
[2020-04-02] MEDS ORDERED: MONTELUKAST NA 10 MG TABLET ONE (21:42)
[2020-04-02] MEDS: ATORVASTATIN CA 20 MG TABLET (FP) PO SCH (21:56)
[2020-04-02] MEDS: MONTELUKAST NA 10 MG TABLET PO SCH (21:56)
[2020-04-02] MEDS: APIXABAN 2.5 MG TABLET PO SCH (21:56)
[2020-04-02] MEDS: levETIRAcetam 500 MG TABLET (FP) PO SCH (21:56)
[2020-04-03] MEDS: BUDESONIDE/FORMETEROL FUMARATE 160/4.5 mcg INHALER IH SCH ×3 (00:12→21:46)
[2020-04-03] MEDS ORDERED: methylPREDNISolone NA SUCC 125 MG/2 ML VIAL ONE (03:51)
[2020-04-03] MEDS: methylPREDNISolone NA SUCC 40 MG/1 ML VIAL IVPUSH SCH ×4 (03:52→20:20)
[2020-04-03 05:54] VITALS: BMI 31.4
[2020-04-03] MEDS: LEVOTHYROXINE NA 25 MCG TABLET (FP) PO SCH (06:05)
[2020-04-03] MEDS ORDERED: PT OWN MED DRAWER 7, Y5N ONE (09:38)
[2020-04-03] MEDS ORDERED: PATIENT'S OWN MEDICATION (NON-FORMULARY) (Losartan/Hydrochlorothiazide [Losartan-Hctz 100- PO SCH (10:00)
[2020-04-03] MEDS: APIXABAN 2.5 MG TABLET PO SCH ×2 (10:01→21:45)
[2020-04-03] MEDS: LOSARTAN POTASSIUM 50 MG TABLET (FP) PO SCH ×2 (10:01→12:29)
[2020-04-03] MEDS: HYDROCHLOROTHIAZIDE 25 MG TABLET (FP) PO SCH ×2 (10:01→12:29)
[2020-04-03] MEDS: levETIRAcetam 500 MG TABLET (FP) PO SCH ×2 (10:02→21:44)
[2020-04-03] MEDS: AZITHROMYCIN IVPB 500 MG/250 ML BAG IVPB SCH (10:03)
[2020-04-03] MEDS: PANTOPRAZOLE 40 MG TABLET PO SCH (10:03)
--- NOTE | 2020-04-03 12:12 | PN ---
Progress Note (short form) - Note Progress Note: upset this AM about her iV line infiltrated SOB+ Cough+ Vital Signs - 24 hr 04/02/20 04/02/20 04/02/20 13:00 18:00 22:00 Temperature 98.2 F Pulse Rate Pulse Rate [ 86 82 Radial] Respiratory 20 20 Rate Blood Pressure Blood Pressure 124/72 134/70 141/81 [Right Arm] O2 Sat by Pulse 97 98 Oximetry (%) 04/03/20 04/03/20 04/03/20 04:00 05:06 05:25 Temperature 98.0 F 97.8 F Pulse Rate 92 H Pulse Rate [ 82 Radial] Respiratory 18 20 20 Rate Blood Pressure 131/59 L Blood Pressure 136/58 L [Right Arm] O2 Sat by Pulse 97 97 Oximetry (%) 04/03/20 04/03/20 09:00 10:43 Temperature 98.1 F Pulse Rate 98 H Pulse Rate [ Radial] Respiratory 20 20 Rate Blood Pressure 101/53 L Blood Pressure [Right Arm] O2 Sat by Pulse 98 Oximetry (%) Current Medications Generic Name Dose Route Start Last Admin Trade Name Freq PRN Reason Stop Dose Admin Albuterol Sulfate 2 puff 04/02/20 13:36 04/03/20 06:06 Ventolin Hfa Inhaler - IH 2 puff Q4H PRN Administration SHORT OF BREATH/WHEEZING Apixaban 2.5 mg 04/02/20 22:00 04/03/20 10:01 Eliquis - PO 2.5 mg BID LUIZA Administration Atorvastatin Calcium 20 mg 04/02/20 22:00 04/02/20 21:56 Lipitor - PO 20 mg HS LUIZA Administration Budesonide/Formoterol Fumarate 1 puff 04/02/20 22:00 04/03/20 10:03 Symbicort 160/4.5mcg - IH 1 puff BID LUIZA Administration Guaifenesin 10 ml 04/02/20 13:20 Robitussin - PO Q4H PRN COUGH Hydrochlorothiazide 25 mg 04/03/20 10:00 04/03/20 10:01 Hctz - PO 25 mg DAILY LUIZA Administration Azithromycin 500 mg in 250 mls @ 250 mls/hr 04/02/20 13:45 04/03/20 10:03 Zithromax 500mg Ivpb (Pre-Docked) IVPB 04/06/20 10:59 250 mls/hr DAILY LUIZA Administration Levetiracetam 750 mg 04/02/20 22:00 04/03/20 10:02 Keppra - PO 750 mg BID LUIZA Administration Levothyroxine Sodium 25 mcg 04/03/20 07:00 04/03/20 06:05 Synthroid - PO 25 mcg 0700 LUIZA Administration Losartan Potassium 100 mg 04/03/20 10:00 04/03/20 10:01 Cozaar - PO 100 mg DAILY LUIZA Administration Methylprednisolone Sodium Succinate 60 mg 04/02/20 15:00 04/03/20 10:01 Solu-Medrol - IVPUSH 60 mg Q6H-IV LUIZA Administration Montelukast Sodium 10 mg 04/02/20 22:00 04/02/20 21:56 Singulair - PO 10 mg HS LUIZA Administration Pantoprazole Sodium 40 mg 04/03/20 10:00 04/03/20 10:03 Protonix - PO 40 mg DAILY LUIZA Administration S1 S2 RRR Lungs ronchi++ Abd=soft, NT no edema mild swelling on right anti cubital region A/P Zithromax iv daily check sputum culture Solumedrol Q6H Protonix for GI prophylaxis COVID PCR Albuterol as needed ON Eliquis for Parox. Afib and h/o B/l DVT OOB continue home meds Problem List - Problems (1) Acute bronchitis Code(s): J20.9 - ACUTE BRONCHITIS, UNSPECIFIED Qualifiers: Bronchitis organism: unspecified organism Qualified Code(s): J20.9 - Acute bronchitis, unspecified (2) Acute exacerbation of mild persistent extrinsic asthma Code(s): J45.31 - MILD PERSISTENT ASTHMA WITH (ACUTE) EXACERBATION (3) Hypertension Code(s): I10 - ESSENTIAL (PRIMARY) HYPERTENSION (4) Hypothyroid Code(s): E03.9 - HYPOTHYROIDISM, UNSPECIFIED (5) Hyperlipemia Code(s): E78.5 - HYPERLIPIDEMIA, UNSPECIFIED Qualifiers: Hyperlipidemia type: pure hypercholesterolemia Qualified Code(s): E78.00 - Pure hypercholesterolemia, unspecified (6) Seizure disorder Code(s): G40.909 - EPILEPSY, UNSP, NOT INTRACTABLE, WITHOUT STATUS EPILEPTICUS (7) Paroxysmal A-fib Code(s): I48.0 - PAROXYSMAL ATRIAL FIBRILLATION
[2020-04-03] MEDS: MONTELUKAST NA 10 MG TABLET PO SCH (21:45)
[2020-04-03] MEDS: ATORVASTATIN CA 20 MG TABLET (FP) PO SCH (21:45)
[2020-04-04] MEDS: methylPREDNISolone NA SUCC 40 MG/1 ML VIAL IVPUSH SCH ×4 (02:09→20:09)
[2020-04-04] MEDS: LEVOTHYROXINE NA 25 MCG TABLET (FP) PO SCH (06:00)
[2020-04-04] MEDS: AZITHROMYCIN IVPB 500 MG/250 ML BAG IVPB SCH (09:22)
[2020-04-04] MEDS: PANTOPRAZOLE 40 MG TABLET PO SCH (09:23)
[2020-04-04] MEDS: LOSARTAN POTASSIUM 50 MG TABLET (FP) PO SCH (09:23)
[2020-04-04] MEDS: levETIRAcetam 500 MG TABLET (FP) PO SCH ×2 (09:23→21:32)
[2020-04-04] MEDS: APIXABAN 2.5 MG TABLET PO SCH ×2 (09:23→21:32)
[2020-04-04] MEDS: HYDROCHLOROTHIAZIDE 25 MG TABLET (FP) PO SCH (09:23)
[2020-04-04] MEDS: BUDESONIDE/FORMETEROL FUMARATE 160/4.5 mcg INHALER IH SCH ×2 (10:56→21:33)
--- NOTE | 2020-04-04 11:50 | EKG ---
Test Reason : Blood Pressure : / mmHG Vent. Rate : 089 BPM Atrial Rate : 089 BPM P-R Int : 124 ms QRS Dur : 072 ms QT Int : 358 ms P-R-T Axes : 061 018 -10 degrees QTc Int : 435 ms SINUS RHYTHM WITH PREMATURE ATRIAL COMPLEXES OTHERWISE NORMAL ECG WHEN COMPARED WITH ECG OF 02-APR-2020 05:52, T WAVE AMPLITUDE HAS INCREASED IN ANTERIOR LEADS Confirmed by AMELIA GUTIÉRREZ, JOSELIN ([id number]) on 04/04/2020 11:50:14 AM Referred By: Confirmed By:JOSELIN CISNEROS MD
[2020-04-04] MEDS ORDERED: ALBUTEROL SO4 0.083% IH SOL 2.5 MG/3 ML VIAL.NEB. NEB PRN (12:01)
--- NOTE | 2020-04-04 12:04 | PN ---
Progress Note (short form) - Note Progress Note: anxious daughter at bedside SOB+ Cough+ decreased Vital Signs - 24 hr 04/03/20 04/03/20 04/03/20 14:58 18:00 21:00 Temperature 98.1 F 98 F Pulse Rate 96 H 98 H Respiratory 20 20 Rate Blood Pressure 106/59 L 139/58 L O2 Sat by Pulse 99 Oximetry (%) 04/03/20 04/04/20 04/04/20 22:00 06:00 08:17 Temperature 98.1 F 98.1 F 98.5 F Pulse Rate 82 83 100 H Respiratory 20 20 24 H Rate Blood Pressure 110/59 L 128/71 133/70 O2 Sat by Pulse Oximetry (%) 04/04/20 04/04/20 04/04/20 08:44 13:15 14:11 Temperature 98.1 F Pulse Rate 87 97 H Respiratory 24 H 20 Rate Blood Pressure 104/58 L O2 Sat by Pulse 98 98 Oximetry (%) Current Medications Generic Name Dose Route Start Last Admin Trade Name Freq PRN Reason Stop Dose Admin Acetaminophen 650 mg 04/04/20 12:01 Tylenol - PO Q6H PRN PAIN 1-3 Albuterol Sulfate 1 amp 04/04/20 12:01 Ventolin 0.083% Nebulizer Soln - NEB Q4H PRN SHORT OF BREATH/WHEEZING Albuterol/Ipratropium 1 amp 04/04/20 12:15 04/04/20 13:21 Duoneb - NEB 1 amp RQID LUIZA Administration Apixaban 2.5 mg 04/02/20 22:00 04/04/20 09:23 Eliquis - PO 2.5 mg BID LUIZA Administration Atorvastatin Calcium 20 mg 04/02/20 22:00 04/03/20 21:45 Lipitor - PO 20 mg HS LUIZA Administration Budesonide/Formoterol Fumarate 1 puff 04/02/20 22:00 04/04/20 10:56 Symbicort 160/4.5mcg - IH 1 puff BID LUIZA Administration Guaifenesin 10 ml 04/02/20 13:20 Robitussin - PO Q4H PRN COUGH Hydrochlorothiazide 25 mg 04/03/20 10:00 04/04/20 09:23 Hctz - PO 25 mg DAILY LUIZA Administration Azithromycin 500 mg in 250 mls @ 250 mls/hr 04/02/20 13:45 04/04/20 09:22 Zithromax 500mg Ivpb (Pre-Docked) IVPB 04/06/20 10:59 250 mls/hr DAILY LUIZA Administration Levetiracetam 750 mg 04/02/20 22:00 04/04/20 09:23 Keppra - PO 750 mg BID LUIZA Administration Levothyroxine Sodium 25 mcg 04/03/20 07:00 04/04/20 06:00 Synthroid - PO 25 mcg 0700 LUIZA Administration Losartan Potassium 50 mg 04/03/20 12:11 04/04/20 09:23 Cozaar - PO 50 mg DAILY LUI[facility] Administration Methylprednisolone Sodium Succinate 60 mg 04/02/20 15:00 04/04/20 09:22 Solu-Medrol - IVPUSH 60 mg Q6H-IV LUIZA Administration Montelukast Sodium 10 mg 04/02/20 22:00 04/03/20 21:45 Singulair - PO 10 mg HS LUIZA Administration Pantoprazole Sodium 40 mg 04/03/20 10:00 04/04/20 09:23 Protonix - PO 40 mg DAILY LUIZA Administration Laboratory Results - last 24 hr 04/02/20 04/04/20 14:26 09:43 Creatine Kinase 49 Troponin I < 0.02 COVID-19 ([facility]) Not detected S1 S2 RRR Lungs ronchi++ Abd=soft, NT no edema mild swelling on right anti cubital region A/P Zithromax iv daily check sputum culture Solumedrol Q6H- maintain for now Protonix for GI prophylaxis COVID PCR NEGATIVE Albuterol as needed ON Eliquis for Parox. Afib and h/o B/l DVT OOB continue home meds recommend low dose klonopin for anxiety but daughter is declining Problem List - Problems (1) Acute bronchitis Code(s): J20.9 - ACUTE BRONCHITIS, UNSPECIFIED Qualifiers: Bronchitis organism: unspecified organism Qualified Code(s): J20.9 - Acute bronchitis, unspecified (2) Acute exacerbation of mild persistent extrinsic asthma Code(s): J45.31 - MILD PERSISTENT ASTHMA WITH (ACUTE) EXACERBATION (3) Hypertension Code(s): I10 - ESSENTIAL (PRIMARY) HYPERTENSION (4) Hypothyroid Code(s): E03.9 - HYPOTHYROIDISM, UNSPECIFIED (5) Hyperlipemia Code(s): E78.5 - HYPERLIPIDEMIA, UNSPECIFIED Qualifiers: Hyperlipidemia type: pure hypercholesterolemia Qualified Code(s): E78.00 - Pure hypercholesterolemia, unspecified (6) Seizure disorder Code(s): G40.909 - EPILEPSY, UNSP, NOT INTRACTABLE, WITHOUT STATUS EPILEPTICUS (7) Paroxysmal A-fib Code(s): I48.0 - PAROXYSMAL ATRIAL FIBRILLATION
[2020-04-04] MEDS: ALBUTEROL SO4 2.5/IPRATROPIUM 0.5 INH SOL 3 ML VIAL.NEB. NEB SCH ×3 (13:21→20:56)
[2020-04-04] MEDS: ATORVASTATIN CA 20 MG TABLET (FP) PO SCH (21:32)
[2020-04-04] MEDS: MONTELUKAST NA 10 MG TABLET PO SCH (21:32)
--- NOTE | 2020-04-05 02:29 | HOSP ---
Subjective - Review of Symptoms Events since last encounter: Hospitalist Encounter Was notified by the RN, that the patient pulled out her IV site, and is yelling and screaming at the nursing staff, was asked to assess. Arrived to bedside, patient is awake, alert, oriented to name, place and family member. She is spaking in Romansh in a shouting voice, [place] line used with her daughter included on the line. Attempts made to provide reassurance. Explained in detail the plan of care with the patient and her daughter. Patient reports having CP. Patient examined see EMR Plan: EKG- stat Troponin- stat Albuterol Neb x1 now Physical Examination Vital Signs: Vital Signs Temperature 97.9 F 04/04/20 22:00 Pulse Rate 96 H 04/04/20 22:00 Respiratory Rate 20 04/04/20 22:00 Blood Pressure 105/53 L 04/04/20 22:00 O2 Sat by Pulse Oximetry (%) 100 04/04/20 21:00 Labs: CBC, BMP 04/02/20 06:09 04/02/20 06:09 Hospitalist Encounter Assessment: This is a 79 y/o female with a PMHx of Asthma, ?pAfib, [place], DVT. Admitted for Asthma Exacerbation Outcome: EKG reviewed- SR with sinus arrhythmia with occasional PVCs, compared to prior tracing PVCs are new Troponin I- < 0.02 Per RN patient is resting comfortably, denies CP, Respiratory status improved Will continue to monitor PMD to f/u Critical Care Total Critical Care Time (in minutes): 40 Critical Care Statement: The care of this patient involved high complexity decision making to prevent further life threatening deterioration of the patient's condition and/or to evaluate & treat vital organ system(s) failure or risk of failure.
[2020-04-05] MEDS: methylPREDNISolone NA SUCC 40 MG/1 ML VIAL IVPUSH SCH ×4 (02:59→22:32)
[2020-04-05] MEDS: LEVOTHYROXINE NA 25 MCG TABLET (FP) PO SCH (06:05)
[2020-04-05] MEDS: ALBUTEROL SO4 2.5/IPRATROPIUM 0.5 INH SOL 3 ML VIAL.NEB. NEB SCH ×4 (08:30→20:27)
[2020-04-05] MEDS: levETIRAcetam 500 MG TABLET (FP) PO SCH ×2 (09:28→22:34)
[2020-04-05] MEDS: ACETAMINOPHEN 325 MG TABLET (FP) PO PRN ×2 (09:28→22:35)
[2020-04-05] MEDS: HYDROCHLOROTHIAZIDE 25 MG TABLET (FP) PO SCH (09:29)
[2020-04-05] MEDS: PANTOPRAZOLE 40 MG TABLET PO SCH (09:29)
[2020-04-05] MEDS: LOSARTAN POTASSIUM 50 MG TABLET (FP) PO SCH (09:30)
[2020-04-05] MEDS: APIXABAN 2.5 MG TABLET PO SCH (09:30)
[2020-04-05] MEDS: BUDESONIDE/FORMETEROL FUMARATE 160/4.5 mcg INHALER IH SCH ×2 (09:31→22:36)
[2020-04-05] MEDS: AZITHROMYCIN IVPB 500 MG/250 ML BAG IVPB SCH (09:31)
[2020-04-05] MEDS ORDERED: ALPRAZolam 0.25 MG TABLET PO PRN (10:38)
--- NOTE | 2020-04-05 10:38 | PN ---
Progress Note, Physician History of Present Illness: Pt seen/ examined Chart reviewed Events of last night noted Anxious - Current Medication List Current Medications: Active Medications Acetaminophen (Tylenol -) 650 mg PO Q6H PRN PRN Reason: PAIN 1-3 Last Admin: 04/05/20 09:28 Dose: 650 mg Documented by: Albuterol Sulfate (Ventolin 0.083% Nebulizer Soln -) 1 amp NEB Q4H PRN PRN Reason: SHORT OF BREATH/WHEEZING Last Admin: 04/05/20 02:49 Dose: 1 amp Documented by: Albuterol/Ipratropium (Duoneb -) 1 amp NEB RQID [facility] Last Admin: 04/05/20 08:30 Dose: 1 amp Documented by: Apixaban (Eliquis -) 5 mg PO BID [facility] Atorvastatin Calcium (Lipitor -) 20 mg PO HS [facility] Last Admin: 04/04/20 21:32 Dose: 20 mg Documented by: Budesonide/Formoterol Fumarate (Symbicort 160/4.5mcg -) 1 puff IH BID [facility] Last Admin: 04/05/20 09:31 Dose: 1 puff Documented by: Guaifenesin (Robitussin -) 10 ml PO Q4H PRN PRN Reason: COUGH Hydrochlorothiazide (Hctz -) 25 mg PO DAILY [facility] Last Admin: 04/05/20 09:29 Dose: 25 mg Documented by: Azithromycin (Zithromax 500mg Ivpb (Pre-Docked)) 500 mg in 250 mls @ 250 mls/hr IVPB DAILY [facility] Stop: 04/06/20 10:59 Last Admin: 04/05/20 09:31 Dose: 250 mls/hr Documented by: Levetiracetam (Keppra -) 750 mg PO BID [facility] Last Admin: 04/05/20 09:28 Dose: 750 mg Documented by: Levothyroxine Sodium (Synthroid -) 25 mcg PO 0700 [facility] Last Admin: 04/05/20 06:05 Dose: 25 mcg Documented by: Losartan Potassium (Cozaar -) 50 mg PO DAILY [facility] Last Admin: 04/05/20 09:30 Dose: 50 mg Documented by: Methylprednisolone Sodium Succinate (Solu-Medrol -) 60 mg IVPUSH Q6H-IV [facility] Last Admin: 04/05/20 09:27 Dose: 60 mg Documented by: Montelukast Sodium (Singulair -) 10 mg PO HS [facility] Last Admin: 04/04/20 21:32 Dose: 10 mg Documented by: Pantoprazole Sodium (Protonix -) 40 mg PO DAILY [facility] Last Admin: 04/05/20 09:29 Dose: 40 mg Documented by: - Objective Vital Signs: Vital Signs Temperature 97.9 F 04/05/20 06:00 Pulse Rate 97 H 04/05/20 06:00 Respiratory Rate 20 04/05/20 06:00 Blood Pressure 102/61 04/05/20 06:00 O2 Sat by Pulse Oximetry (%) 100 04/04/20 21:00 Constitutional: Yes: Anxious Eyes: Yes: Conjunctiva Clear Neck: Yes: Supple Cardiovascular: Yes: Regular Rate and Rhythm Respiratory: Yes: Rhonchi Gastrointestinal: Yes: Soft Edema: No Neurological: Yes: Alert Labs: CBC, BMP 04/02/20 06:09 04/02/20 06:09 INR, PTT INR 1.06 (0.83-1.09) 04/02/20 06:09 Problem List - Problems (1) Anxiety Code(s): F41.9 - ANXIETY DISORDER, UNSPECIFIED (2) Asthma exacerbation Code(s): J45.901 - UNSPECIFIED ASTHMA WITH (ACUTE) EXACERBATION Qualifiers: Asthma severity: unspecified severity Asthma persistence: unspecified Qualified Code(s): J45.901 - Unspecified asthma with (acute) exacerbation (3) Paroxysmal A-fib Code(s): I48.0 - PAROXYSMAL ATRIAL FIBRILLATION (4) Hypertension Code(s): I10 - ESSENTIAL (PRIMARY) HYPERTENSION Assessment/Plan D/w rn continue same Steroids Abx Nebulizer treatment Will add xanax for severe anxiety-- PRN basis Will follow Eliquis dose to be changed to 5 mg -- D/W Pharmacy
--- NOTE | 2020-04-05 13:36 | EKG ---
Test Reason : Blood Pressure : / mmHG Vent. Rate : 085 BPM Atrial Rate : 085 BPM P-R Int : 096 ms QRS Dur : 086 ms QT Int : 366 ms P-R-T Axes : 072 016 031 degrees QTc Int : 435 ms SINUS RHYTHM WITH SINUS ARRHYTHMIA WITH OCCASIONAL PREMATURE VENTRICULAR COMPLEXES WHEN COMPARED WITH ECG OF 04-APR-2020 10:41, PREMATURE VENTRICULAR COMPLEXES ARE NOW PRESENT PREMATURE ATRIAL COMPLEXES ARE NO LONGER PRESENT Confirmed by LUIS A JOSEPH MD ([id number]) on 04/05/2020 1:36:42 PM Referred By: Confirmed By:LUIS A JOSEPH MD
[2020-04-05] MEDS: MONTELUKAST NA 10 MG TABLET PO SCH (22:33)
[2020-04-05] MEDS: APIXABAN 5 MG TABLET PO SCH (22:34)
[2020-04-05] MEDS: guaiFENesin 200 MG/10 ML 10 ML UNIT-DOSE CUPS PO PRN (22:34)
[2020-04-05] MEDS: ATORVASTATIN CA 20 MG TABLET (FP) PO SCH (22:36)
[2020-04-06] MEDS: methylPREDNISolone NA SUCC 40 MG/1 ML VIAL IVPUSH SCH ×4 (02:51→21:44)
[2020-04-06] MEDS: guaiFENesin 200 MG/10 ML 10 ML UNIT-DOSE CUPS PO PRN (05:33)
[2020-04-06] MEDS: ACETAMINOPHEN 325 MG TABLET (FP) PO PRN (05:33)
[2020-04-06] MEDS: LEVOTHYROXINE NA 25 MCG TABLET (FP) PO SCH (06:01)
[2020-04-06] MEDS: ALBUTEROL SO4 2.5/IPRATROPIUM 0.5 INH SOL 3 ML VIAL.NEB. NEB SCH ×4 (08:00→20:10)
[2020-04-06] MEDS: HYDROCHLOROTHIAZIDE 25 MG TABLET (FP) PO SCH (09:04)
[2020-04-06] MEDS: BUDESONIDE/FORMETEROL FUMARATE 160/4.5 mcg INHALER IH SCH ×2 (09:04→21:49)
[2020-04-06] MEDS: PANTOPRAZOLE 40 MG TABLET PO SCH (09:04)
[2020-04-06] MEDS: AZITHROMYCIN IVPB 500 MG/250 ML BAG IVPB SCH (09:04)
[2020-04-06] MEDS: APIXABAN 5 MG TABLET PO SCH ×2 (09:04→21:48)
[2020-04-06] MEDS: levETIRAcetam 500 MG TABLET (FP) PO SCH ×2 (09:04→21:48)
[2020-04-06] MEDS: LOSARTAN POTASSIUM 50 MG TABLET (FP) PO SCH (09:04)
--- NOTE | 2020-04-06 10:16 | PN ---
Progress Note, Physician History of Present Illness: Pt seen/ examined awake/ no distress cough + sat 100 percent on room air anxious refuses to take anxiolytics afebrile - Current Medication List Current Medications: Active Medications Acetaminophen (Tylenol -) 650 mg PO Q6H PRN PRN Reason: PAIN 1-3 Last Admin: 04/06/20 05:33 Dose: 650 mg Documented by: Albuterol Sulfate (Ventolin 0.083% Nebulizer Soln -) 1 amp NEB Q4H PRN PRN Reason: SHORT OF BREATH/WHEEZING Last Admin: 04/05/20 02:49 Dose: 1 amp Documented by: Albuterol/Ipratropium (Duoneb -) 1 amp NEB RQID [facility] Last Admin: 04/06/20 08:00 Dose: 1 amp Documented by: Alprazolam (Xanax -) 0.25 mg PO BID PRN PRN Reason: ANXIETY Apixaban (Eliquis -) 5 mg PO BID [facility] Last Admin: 04/06/20 09:04 Dose: 5 mg Documented by: Atorvastatin Calcium (Lipitor -) 20 mg PO HS [facility] Last Admin: 04/05/20 22:36 Dose: 20 mg Documented by: Budesonide/Formoterol Fumarate (Symbicort 160/4.5mcg -) 1 puff IH BID [facility] Last Admin: 04/06/20 09:04 Dose: 1 puff Documented by: Guaifenesin (Robitussin -) 10 ml PO Q4H PRN PRN Reason: COUGH Last Admin: 04/06/20 05:33 Dose: 10 ml Documented by: Hydrochlorothiazide (Hctz -) 25 mg PO DAILY [facility] Last Admin: 04/06/20 09:04 Dose: 25 mg Documented by: Azithromycin (Zithromax 500mg Ivpb (Pre-Docked)) 500 mg in 250 mls @ 250 mls/hr IVPB DAILY [facility] Stop: 04/06/20 10:59 Last Admin: 04/06/20 09:04 Dose: 250 mls/hr Documented by: Levetiracetam (Keppra -) 750 mg PO BID [facility] Last Admin: 04/06/20 09:04 Dose: 750 mg Documented by: Levothyroxine Sodium (Synthroid -) 25 mcg PO 0700 [facility] Last Admin: 07/11/20 06:01 Dose: 25 mcg Documented by: Losartan Potassium (Cozaar -) 50 mg PO DAILY [facility] Last Admin: 04/06/20 09:04 Dose: 50 mg Documented by: Methylprednisolone Sodium Succinate (Solu-Medrol -) 60 mg IVPUSH Q6H-IV [facility] Last Admin: 04/06/20 08:08 Dose: 60 mg Documented by: Montelukast Sodium (Singulair -) 10 mg PO HS [facility] Last Admin: 04/05/20 22:33 Dose: 10 mg Documented by: Pantoprazole Sodium (Protonix -) 40 mg PO DAILY [facility] Last Admin: 04/06/20 09:04 Dose: 40 mg Documented by: - Objective Vital Signs: Vital Signs Temperature 98.2 F 04/06/20 09:58 Pulse Rate 102 H 04/06/20 09:58 Respiratory Rate 04/06/20 09:58 Blood Pressure 132/63 04/06/20 09:58 O2 Sat by Pulse Oximetry (%) 100 04/06/20 09:00 Constitutional: Yes: No Distress, Anxious Neck: Yes: Supple Respiratory: Yes: Rhonchi Gastrointestinal: Yes: Soft Edema: No Neurological: Yes: Alert Labs: CBC, BMP 04/02/20 06:09 04/02/20 06:09 INR, PTT INR 1.06 (0.83-1.09) 04/02/20 06:09 Problem List - Problems (1) Anxiety Code(s): F41.9 - ANXIETY DISORDER, UNSPECIFIED (2) Asthma exacerbation Code(s): J45.901 - UNSPECIFIED ASTHMA WITH (ACUTE) EXACERBATION Qualifiers: Asthma severity: unspecified severity Asthma persistence: unspecified Qualified Code(s): J45.901 - Unspecified asthma with (acute) exacerbation (3) Paroxysmal A-fib Code(s): I48.0 - PAROXYSMAL ATRIAL FIBRILLATION (4) Hypertension Code(s): I10 - ESSENTIAL (PRIMARY) HYPERTENSION Assessment/Plan D/w RN again today continue same Steroids Abx Nebulizer treatment Pulmonary consult oob - chair Spirometry will follow
--- NOTE | 2020-04-06 11:50 | PN ---
Progress Note (short form) - Note Progress Note: PULMONARY CONSULTATION DICTATED 04/06/20 IMP DYSPNEA ACUTE ASTHMA EXACERBATION H/O BILATERAL DVTs HYPOTHYROID PAF ASHD S/P GA H/O CVA H/O SEIZURES PLAN SUPPLEMENTAL O2 INHALED BRONCHODILATORS MEDROL ABX PEAK FLOW OUTPATIENT PFTS DR FLORES Problem List - Problems (1) Asthma exacerbation Code(s): J45.901 - UNSPECIFIED ASTHMA WITH (ACUTE) EXACERBATION Qualifiers: Asthma severity: unspecified severity Asthma persistence: unspecified Qualified Code(s): J45.901 - Unspecified asthma with (acute) exacerbation (2) Paroxysmal A-fib Code(s): I48.0 - PAROXYSMAL ATRIAL FIBRILLATION (3) Cough Code(s): R05 - COUGH (4) Hypertension Code(s): I10 - ESSENTIAL (PRIMARY) HYPERTENSION (5) Hypothyroid Code(s): E03.9 - HYPOTHYROIDISM, UNSPECIFIED (6) Shoulder pain, left Code(s): M25.512 - PAIN IN LEFT SHOULDER Qualifiers: Chronicity: acute Qualified Code(s): M25.512 - Pain in left shoulder (7) Hyperlipemia Code(s): E78.5 - HYPERLIPIDEMIA, UNSPECIFIED Qualifiers: Hyperlipidemia type: pure hypercholesterolemia Qualified Code(s): E78.00 - Pure hypercholesterolemia, unspecified
--- NOTE | 2020-04-06 14:26 | CONS ---
DATE OF CONSULTATION: 04/06/2020 REFERRING PHYSICIAN: Ashleigh Nichols MD The patient is an 79-year-old female with past medical history of asthma, paroxysmal atrial fibrillation, ASHD, status post VT, history of bilateral DVT, currently on anticoagulation, admitted to [facility] with complaint of shortness of breath, cough, chest discomfort, left arm numbness for 2-3 days prior to admission. Patient denied any complaints of nausea, vomiting, or diaphoresis. According to the patient's daughter, the patient started having increasing asthma symptoms over the past few days. She says cough is productive of green sputum, as well as wheezing. Apparently she uses inhaled nebulizer at home without any improvement. On admission, she was started on inhaled bronchodilators and IV steroids with good response. PAST MEDICAL HISTORY: Again includes asthma, atrial fibrillation, ASHD status post VT, bilateral DVT. Also history of CVA, seizures. SOCIAL HISTORY: No occupational exposures. No history of tobacco use. CURRENT MEDICATIONS: Include Symbicort 160/4.5, Solu-Medrol 60 q.6, Tylenol, Cozaar, Eliquis, Keppra, Xanax, albuterol, DuoNeb, Lipitor, Singulair, Protonix, and Synthroid. REVIEW OF SYSTEMS: Positive cough, positive shortness of breath, positive wheezing. no fever, no chills, no hemoptysis, no abdominal pain. PHYSICAL EXAMINATION: General: The patient is an elderly female, awake, alert, in no acute distress. Vital Signs: She is afebrile. Blood pressure 132/63. Respiratory rate is 20. O2 saturation is 100% on 2 L nasal cannula. HEENT: Exam is atraumatic, normocephalic. Neck: Supple. Heart: Regular, S1, S2. Chest: Scattered bilateral wheezes. Abdomen: Soft. Bowel sounds are positive. Extremities: No cyanosis or edema. LABORATORY: WBC is 11.4, hemoglobin 12.6, hematocrit 40.5, with a platelet count of 218,000. BUN 22, creatinine 0.8. Chest CT: No infiltrates and no effusion. Mild chronic lung disease. No evidence of COVID-19. COVID PCR is negative. IMPRESSION: 1. Dyspnea secondary to acute asthma exacerbation. 2. History of bilateral deep vein thromboses. 3. Hypothyroidism. 4. 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 5. Paroxysmal atrial flutter. 6. History of cerebrovascular accident. 7. Seizures. PLAN: Continue inhaled bronchodilator, supplemental O2 to maintain O2 saturation 90% or greater. Continue on Solu-Medrol, antibiotics. Monitor peak flow, outpatient PFTs. VIDHI FLORES M.D. [id number] MTDD
[2020-04-06] MEDS: ATORVASTATIN CA 20 MG TABLET (FP) PO SCH (21:48)
[2020-04-06] MEDS: MONTELUKAST NA 10 MG TABLET PO SCH (21:48)
[2020-04-07] MEDS: methylPREDNISolone NA SUCC 40 MG/1 ML VIAL IVPUSH SCH ×4 (03:40→21:24)
[2020-04-07] MEDS: LEVOTHYROXINE NA 25 MCG TABLET (FP) PO SCH (06:29)
--- NOTE | 2020-04-07 07:49 | PN ---
Progress Note, Physician History of Present Illness: pulmonary alert,still c/o sob,congestion - Current Medication List Current Medications: Active Medications Acetaminophen (Tylenol -) 650 mg PO Q6H PRN PRN Reason: PAIN 1-3 Last Admin: 04/06/20 05:33 Dose: 650 mg Documented by: Albuterol Sulfate (Ventolin 0.083% Nebulizer Soln -) 1 amp NEB Q4H PRN PRN Reason: SHORT OF BREATH/WHEEZING Last Admin: 04/05/20 02:49 Dose: 1 amp Documented by: Albuterol/Ipratropium (Duoneb -) 1 amp NEB RQID [facility] Last Admin: 04/06/20 20:10 Dose: 1 amp Documented by: Alprazolam (Xanax -) 0.25 mg PO BID PRN PRN Reason: ANXIETY Apixaban (Eliquis -) 5 mg PO BID [facility] Last Admin: 04/06/20 21:48 Dose: 5 mg Documented by: Atorvastatin Calcium (Lipitor -) 20 mg PO HS [facility] Last Admin: 04/06/20 21:48 Dose: 20 mg Documented by: Budesonide/Formoterol Fumarate (Symbicort 160/4.5mcg -) 1 puff IH BID [facility] Last Admin: 04/06/20 21:49 Dose: 1 puff Documented by: Guaifenesin (Robitussin -) 10 ml PO Q4H PRN PRN Reason: COUGH Last Admin: 04/06/20 05:33 Dose: 10 ml Documented by: Hydrochlorothiazide (Hctz -) 25 mg PO DAILY [facility] Last Admin: 04/06/20 09:04 Dose: 25 mg Documented by: Levetiracetam (Keppra -) 750 mg PO BID [facility] Last Admin: 04/06/20 21:48 Dose: 750 mg Documented by: Levothyroxine Sodium (Synthroid -) 25 mcg PO 0700 [facility] Last Admin: 04/07/20 06:29 Dose: 25 mcg Documented by: Losartan Potassium (Cozaar -) 50 mg PO DAILY [facility] Last Admin: 04/06/20 09:04 Dose: 50 mg Documented by: Methylprednisolone Sodium Succinate (Solu-Medrol -) 60 mg IVPUSH Q6H-IV [facility] Last Admin: 04/07/20 03:40 Dose: 60 mg Documented by: Montelukast Sodium (Singulair -) 10 mg PO HS [facility] Last Admin: 04/06/20 21:48 Dose: 10 mg Documented by: Pantoprazole Sodium (Protonix -) 40 mg PO DAILY [facility] Last Admin: 04/06/20 09:04 Dose: 40 mg Documented by: - Objective Vital Signs: Vital Signs Temperature 98 F 04/07/20 05:00 Pulse Rate 95 H 04/07/20 05:00 Respiratory Rate 20 04/07/20 05:00 Blood Pressure 139/78 04/07/20 05:00 O2 Sat by Pulse Oximetry (%) 100 04/06/20 20:33 Constitutional: Yes: Well Nourished, Calm Eyes: Yes: WNL HENT: Yes: WNL Neck: Yes: WNL Cardiovascular: Yes: Regular Rate and Rhythm, S1, S2 Respiratory: Yes: Wheezes (scattered jordan wheezes) Gastrointestinal: Yes: Normal Bowel Sounds, Soft Extremities: Yes: WNL Edema: Yes Labs: Problem List - Problems (1) Asthma exacerbation Code(s): J45.901 - UNSPECIFIED ASTHMA WITH (ACUTE) EXACERBATION Qualifiers: Asthma severity: unspecified severity Asthma persistence: unspecified Qualified Code(s): J45.901 - Unspecified asthma with (acute) exacerbation (2) Paroxysmal A-fib Code(s): I48.0 - PAROXYSMAL ATRIAL FIBRILLATION (3) Cough Code(s): R05 - COUGH (4) Hypertension Code(s): I10 - ESSENTIAL (PRIMARY) HYPERTENSION (5) Hypothyroid Code(s): E03.9 - HYPOTHYROIDISM, UNSPECIFIED (6) Shoulder pain, left Code(s): M25.512 - PAIN IN LEFT SHOULDER Qualifiers: Chronicity: acute Qualified Code(s): M25.512 - Pain in left shoulder (7) Hyperlipemia Code(s): E78.5 - HYPERLIPIDEMIA, UNSPECIFIED Qualifiers: Hyperlipidemia type: pure hypercholesterolemia Qualified Code(s): E78.00 - Pure hypercholesterolemia, unspecified Assessment/Plan IMP DYSPNEA ACUTE ASTHMA EXACERBATION H/O BILATERAL DVTs HYPOTHYROID PAF ASHD S/P CT H/O CVA H/O SEIZURES PLAN SUPPLEMENTAL O2 INHALED BRONCHODILATORS MEDROL 60 q6 ABX PEAK FLOW OUTPATIENT PFTS DR FLORES Problem List - Problems (1) Asthma exacerbation Code(s): J45.901 - UNSPECIFIED ASTHMA WITH (ACUTE) EXACERBATION Qualifiers: Asthma severity: unspecified severity Asthma persistence: unspecified Qualified Code(s): J45.901 - Unspecified asthma with (acute) exacerbation (2) Paroxysmal A-fib Code(s): I48.0 - PAROXYSMAL ATRIAL FIBRILLATION (3) Cough Code(s): R05 - COUGH (4) Hypertension Code(s): I10 - ESSENTIAL (PRIMARY) HYPERTENSION (5) Hypothyroid Code(s): E03.9 - HYPOTHYROIDISM, UNSPECIFIED (6) Shoulder pain, left Code(s): M25.512 - PAIN IN LEFT SHOULDER Qualifiers: Chronicity: acute Qualified Code(s): M25.512 - Pain in left shoulder (7) Hyperlipemia Code(s): E78.5 - HYPERLIPIDEMIA, UNSPECIFIED Qualifiers: Hyperlipidemia type: pure hypercholesterolemia Qualified Code(s): E78.00 - Pure hypercholesterolemia, unspecified
[2020-04-07] MEDS: ALBUTEROL SO4 2.5/IPRATROPIUM 0.5 INH SOL 3 ML VIAL.NEB. NEB SCH ×4 (07:53→21:07)
[2020-04-07] MEDS: guaiFENesin 200 MG/10 ML 10 ML UNIT-DOSE CUPS PO PRN ×2 (09:14→21:50)
[2020-04-07] MEDS: levETIRAcetam 500 MG TABLET (FP) PO SCH ×2 (09:14→21:23)
[2020-04-07] MEDS: PANTOPRAZOLE 40 MG TABLET PO SCH (09:14)
[2020-04-07] MEDS: LOSARTAN POTASSIUM 50 MG TABLET (FP) PO SCH (09:14)
[2020-04-07] MEDS: APIXABAN 5 MG TABLET PO SCH ×2 (09:14→21:24)
[2020-04-07] MEDS: HYDROCHLOROTHIAZIDE 25 MG TABLET (FP) PO SCH (09:14)
[2020-04-07] MEDS: BUDESONIDE/FORMETEROL FUMARATE 160/4.5 mcg INHALER IH SCH ×2 (09:15→21:48)
--- NOTE | 2020-04-07 10:45 | PN ---
Progress Note, Physician History of Present Illness: Pt seen/ examined. awake/better cough +- better. afebrile - Current Medication List Current Medications: Active Medications Acetaminophen (Tylenol -) 650 mg PO Q6H PRN PRN Reason: PAIN 1-3 Last Admin: 04/06/20 05:33 Dose: 650 mg Documented by: Albuterol Sulfate (Ventolin 0.083% Nebulizer Soln -) 1 amp NEB Q4H PRN PRN Reason: SHORT OF BREATH/WHEEZING Last Admin: 04/05/20 02:49 Dose: 1 amp Documented by: Albuterol/Ipratropium (Duoneb -) 1 amp NEB RQID PENDING SALE TO [facility] Last Admin: 04/07/20 07:53 Dose: 1 amp Documented by: Alprazolam (Xanax -) 0.25 mg PO BID PRN PRN Reason: ANXIETY Apixaban (Eliquis -) 5 mg PO BID [facility] Last Admin: 04/07/20 09:14 Dose: 5 mg Documented by: Atorvastatin Calcium (Lipitor -) 20 mg PO HS [facility] Last Admin: 04/06/20 21:48 Dose: 20 mg Documented by: Budesonide/Formoterol Fumarate (Symbicort 160/4.5mcg -) 1 puff IH BID [facility] TO [facility] Last Admin: 04/07/20 09:15 Dose: 1 puff Documented by: Guaifenesin (Robitussin -) 10 ml PO Q4H PRN PRN Reason: COUGH Last Admin: 04/07/20 09:14 Dose: 10 ml Documented by: Hydrochlorothiazide (Hctz -) 25 mg PO DAILY [facility] Last Admin: 04/07/20 09:14 Dose: 25 mg Documented by: Levetiracetam (Keppra -) 750 mg PO BID [facility] Last Admin: 04/07/20 09:14 Dose: 750 mg Documented by: Levothyroxine Sodium (Synthroid -) 25 mcg PO 0700 [facility] Last Admin: 04/07/20 06:29 Dose: 25 mcg Documented by: Losartan Potassium (Cozaar -) 50 mg PO DAILY [facility] Last Admin: 04/07/20 09:14 Dose: 50 mg Documented by: Methylprednisolone Sodium Succinate (Solu-Medrol -) 60 mg IVPUSH Q6H-IV [facility] Last Admin: 04/07/20 09:14 Dose: 60 mg Documented by: Montelukast Sodium (Singulair -) 10 mg PO HS [facility] Last Admin: 04/06/20 21:48 Dose: 10 mg Documented by: Pantoprazole Sodium (Protonix -) 40 mg PO DAILY [facility] Last Admin: 04/07/20 09:14 Dose: 40 mg Documented by: - Objective Vital Signs: Vital Signs Temperature 98.1 F 04/07/20 08:33 Pulse Rate 97 H 04/07/20 08:33 Respiratory Rate 20 04/07/20 09:00 Blood Pressure 130/71 04/07/20 08:33 O2 Sat by Pulse Oximetry (%) 100 04/07/20 09:00 Constitutional: Yes: No Distress Neck: Yes: Supple Cardiovascular: Yes: Regular Rate and Rhythm. No: Pulse Irregular Respiratory: Yes: Rhonchi Gastrointestinal: Yes: Soft Edema: No Neurological: Yes: Alert Labs: CBC, BMP 04/02/20 06:09 04/02/20 06:09 INR, PTT INR 1.06 (0.83-1.09) 04/02/20 06:09 Problem List - Problems (1) Anxiety Code(s): F41.9 - ANXIETY DISORDER, UNSPECIFIED (2) Asthma exacerbation Code(s): J45.901 - UNSPECIFIED ASTHMA WITH (ACUTE) EXACERBATION Qualifiers: Asthma severity: unspecified severity Asthma persistence: unspecified Qualified Code(s): J45.901 - Unspecified asthma with (acute) exacerbation (3) Paroxysmal A-fib Code(s): I48.0 - PAROXYSMAL ATRIAL FIBRILLATION (4) Hypertension Code(s): I10 - ESSENTIAL (PRIMARY) HYPERTENSION Assessment/Plan Better continue same Steroids Abx Nebulizer treatment Pulmonary consult appreciated oob - chair Spirometry oob- chair PT
[2020-04-07] MEDS: MONTELUKAST NA 10 MG TABLET PO SCH (21:23)
[2020-04-07] MEDS: ATORVASTATIN CA 20 MG TABLET (FP) PO SCH (21:24)
[2020-04-08] MEDS: methylPREDNISolone NA SUCC 40 MG/1 ML VIAL IVPUSH SCH ×3 (03:19→10:25)
[2020-04-08] MEDS: LEVOTHYROXINE NA 25 MCG TABLET (FP) PO SCH (06:19)
[2020-04-08] MEDS: ALBUTEROL SO4 2.5/IPRATROPIUM 0.5 INH SOL 3 ML VIAL.NEB. NEB SCH ×3 (08:20→15:08)
[2020-04-08] MEDS: APIXABAN 5 MG TABLET PO SCH (09:07)
[2020-04-08] MEDS: HYDROCHLOROTHIAZIDE 25 MG TABLET (FP) PO SCH (09:07)
[2020-04-08] MEDS: PANTOPRAZOLE 40 MG TABLET PO SCH (09:07)
[2020-04-08] MEDS: levETIRAcetam 500 MG TABLET (FP) PO SCH (09:07)
[2020-04-08] MEDS: BUDESONIDE/FORMETEROL FUMARATE 160/4.5 mcg INHALER IH SCH (09:08)
[2020-04-08] MEDS: LOSARTAN POTASSIUM 50 MG TABLET (FP) PO SCH (10:26)
--- NOTE | 2020-04-08 11:05 | PN ---
Progress Note (short form) - Note Progress Note: PULMONARY Still with shortness of breath, cough and wheezing. No fevers. Vital Signs Period Temp Pulse Resp BP Sys/S[place]on Pulse Ox Last 24 Hr 97.9 F-98.7 F 91-105 20-20 123-134/68-85 100 Gen: mildly tachypneic at rest Heart: RRR Lung: scattered wheezes, rhonchi Abd: soft, nontender Ext: no edema CBC, BMP 04/02/20 06:09 04/02/20 06:09 Active Medications Acetaminophen (Tylenol -) 650 mg PO Q6H PRN PRN Reason: PAIN 1-3 Last Admin: 04/06/20 05:33 Dose: 650 mg Documented by: Albuterol Sulfate (Ventolin 0.083% Nebulizer Soln -) 1 amp NEB Q4H PRN PRN Reason: SHORT OF BREATH/WHEEZING Last Admin: 04/05/20 02:49 Dose: 1 amp Documented by: Albuterol/Ipratropium (Duoneb -) 1 amp NEB RQID [facility] Last Admin: 04/07/20 21:07 Dose: 1 amp Documented by: Apixaban (Eliquis -) 5 mg PO BID [facility] Last Admin: 04/08/20 09:07 Dose: 5 mg Documented by: Atorvastatin Calcium (Lipitor -) 20 mg PO HS [facility] Last Admin: 04/07/20 21:24 Dose: 20 mg Documented by: Budesonide/Formoterol Fumarate (Symbicort 160/4.5mcg -) 1 puff IH BID [facility] Last Admin: 04/08/20 09:08 Dose: 1 puff Documented by: Guaifenesin (Robitussin -) 10 ml PO Q4H PRN PRN Reason: COUGH Last Admin: 04/07/20 21:50 Dose: 10 ml Documented by: Hydrochlorothiazide (Hctz -) 25 mg PO DAILY [facility] Last Admin: 04/08/20 09:07 Dose: 25 mg Documented by: Levetiracetam (Keppra -) 750 mg PO BID [facility] Last Admin: 04/08/20 09:07 Dose: 750 mg Documented by: Levothyroxine Sodium (Synthroid -) 25 mcg PO 0700 [facility] Last Admin: 04/08/20 06:19 Dose: 25 mcg Documented by: Losartan Potassium (Cozaar -) 50 mg PO DAILY [facility] Last Admin: 04/08/20 10:26 Dose: 50 mg Documented by: Methylprednisolone Sodium Succinate (Solu-Medrol -) 60 mg IVPUSH Q6H-IV [facility] Last Admin: 04/08/20 10:25 Dose: Not Given Documented by: Montelukast Sodium (Singulair -) 10 mg PO HS [facility] Last Admin: 04/07/20 21:23 Dose: 10 mg Documented by: Pantoprazole Sodium (Protonix -) 40 mg PO DAILY [facility] Last Admin: 04/08/20 09:07 Dose: 40 mg Documented by: A/P Acute Asthma Exacerbation h/o DVTs Paroxysmal Atrial Fibrillation CAD Hypothyroidism h/o CVA Seizure Disorder HTN - continue medrol at current dose - inhaled bronchodilators - O2 to keep SpO2 >90% - singulair - continue anticoagulation
[2020-04-08] MEDS ORDERED: predniSONE 20 MG TABLET (UD) PO SCH (13:30)
[2020-04-08 13:59] VITALS: BP 142/78; PULSE 104; TEMP 98.6
--- NOTE | 2020-04-08 14:21 | DS ---
Physical Examination Vital Signs: Vital Signs Temperature 98.6 F 04/08/20 13:58 Pulse Rate 104 H 04/08/20 13:58 Respiratory Rate 20 04/08/20 13:58 Blood Pressure 142/78 04/08/20 13:58 O2 Sat by Pulse Oximetry (%) 98 04/08/20 09:00 Findings/Remarks: pt seen/ examined alert/ awake walking in hallway adamant to go home dont want to go home nO i/v access --out dont want i/v access or to stay anxious pt / daughter refuses to take xanax anxiolytics pulmonary f/u noted/ Changed by pulmonary to prednisone Spoke with pts daughter -- very angry -- wants pt to have line and pt refuses !! pt not pleasant with myself and staff -- pt otherwise looks much better than yesterday Walking in [address]. Constitutional: Yes: No Distress, Anxious Eyes: Yes: Conjunctiva Clear Neck: Yes: Supple Cardiovascular: Yes: Regular Rate and Rhythm Respiratory: Yes: Other (scattered wheezes) Gastrointestinal: Yes: Soft Edema: No Neurological: Yes: Alert (ao x3) Labs: CBC, BMP 04/02/20 06:09 04/02/20 06:09 Discharge Summary Problems reviewed: Yes Reason For Visit: ACUTE EXACERBATION OF MILD PRESISTENT ASTHMA Current Active Problems Anxiety (Acute) Asthma exacerbation (Acute) Paroxysmal A-fib (Acute) Hospital Course: admitted for Asthma exac treated with steroids/ abx pulmonary consult also taken Pt adamant to go home will send on po prednisone with close f/u with pmd and Pulmonary ENT consult as out pt will be helpful meds send to pharmacy Condition: Improved - Instructions Referrals: Vasquez Abbott MD [Primary Care Provider] - - Home Medications Comprehensive Discharge Medication List: Ambulatory Orders Levothyroxine [Synthroid -] 25 mcg PO DAILY 04/15/17 Losartan/Hydrochlorothiazide [Losartan-Hctz 100-25 mg Tab] 1 each PO DAILY 04/15/17 Simvastatin 40 mg PO HS 06/13/17 Apixaban [Eliquis] 2.5 mg PO BID 06/11/19 levETIRAcetam [Keppra -] 750 mg PO BID 08/12/19 Benzonatate 200 mg PO BID PRN 08/13/19 Meclizine HCl [Antivert -] 25 mg PO BID PRN 08/13/19 Albuterol 0.083% Nebulizer Prabha [Ventolin 0.083% Nebulizer Soln -] 1 amp NEB Q4H PRN amp 08/21/19 Montelukast Na [Singulair -] 10 mg PO HS #1 tablet 10/21/19 Budesonide/Formeterol Fumarate [SYMBICORT 160/4.5mcg -] 1 inh PO BID #1 cannister 12/12/19 Guaifenesin 100 mg PO Q4H PRN 04/02/20 Pantoprazole Sodium [Protonix -] 40 mg PO DAILY 30 Days #30 tablet.ec 04/08/20 predniSONE [Deltasone -] 60 mg PO BID #60 tablet 04/08/20
== END 2020-04-08 17:35 | disposition home or self-care (01) | DRG 202 ==
LOC: JER 04:38 → SUPCPDRO 04:38 → JERBED 09:28 → J7W 04-03 05:56
PROVIDERS: ADMIT Internal Medicine; ATTEND Internal Medicine
DX: J45.31 Mild persistent asthma with (acute) exacerbation (principal); J98.11 Atelectasis; J20.9 Acute bronchitis, unspecified; I25.2 Old myocardial infarction; Z86.718 Personal history of other venous thrombosis and embolism; Z88.0 Allergy status to penicillin; I48.0 Paroxysmal atrial fibrillation; E03.9 Hypothyroidism, unspecified; G40.909 Epilepsy, unspecified, not intractable, without status epilepticus; I25.10 Atherosclerotic heart disease of native coronary artery without angina pectoris; M25.512 Pain in left shoulder; Z86.73 Personal history of transient ischemic attack (TIA), and cerebral infarction without residual deficits
CPT/HCPCS: 36415; 70450-TC; 71045-TC-FY; 71250-TC; 80053; 82550; 83735; 83880; 84484; 85025; 85610; 85730; 87070; 87186; 87205; 93005; 93010; 94010; 94640; 97116-GP; 97161-GP; 99285-25; U0003

== ENCOUNTER 2020-05-11 02:15 | Inpatient (IN) | payer BC, OTHER ==
--- NOTE | 2020-05-11 02:23 | PDOC ---
History of Present Illness - General Stated Complaint: CHEST PAIN History Source: Patient - History of Present Illness Initial Comments: 05/11/20 02:22 HPI: This is an 79 y/o female with PMH of asthma, paroxysmal afib, TIA, and bi lateral DVT's presenting to the ED due to chest pain that began this morning. The patient reports that she had a sharp, non-radiating left sided chest pain that began while she was in bed. She has had this pain before. She took a nitroglycerin which resolved the pain. She also began having left arm numbness which the daughter says has been happening for the past few days. Later this evening, her chest pain began again as well as shortness of breath. She took three nitroglycerin with no relief. She denies any N/V, diaphoresis, lightheadedness. ROS: GENERAL/CONSTITUTIONAL: No fever/chills. No weakness. HEAD, EYES, EARS, NOSE AND THROAT: No change in vision. No ear pain or discharge. No sore throat. CARDIOVASCULAR: Yes chest pain and SOB RESPIRATORY: No cough, wheezing, or hemoptysis. GASTROINTESTINAL: Yes nausea. No vomiting, diarrhea or constipation. GENITOURINARY: No dysuria, frequency, or change in urination. MUSCULOSKELETAL: No joint or muscle swelling or pain. No neck or back pain. SKIN: No rash NEUROLOGIC: Yes headache, loss of consciousness, or change in strength/sensation. HEMATOLOGIC/LYMPHATIC: No anemia, easy bleeding, Yes history of bilateral DVT's in legs. PMH: asthma, paroxysmal afib, TIA, and bilateral DVT's Meds: See nurses note Allergies: Penicillins PE: GENERAL: Awake, alert, and fully oriented. Non-toxic in appearance. Laying in b ed with daughter in the room. HEAD: No signs of trauma EYES: PERRLA, EOMI NECK: Normal ROM, supple, no lymphadenopathy, JVD, or masses LUNGS: Breath sounds equal, bilateral crackes in lower lungs. HEART: Regular rate and rhythm, normal S1 and S2, no murmurs, rubs or gallops ABDOMEN: Soft, nontender, normoactive bowel sounds. No guarding, no rebound. No masses EXTREMITIES: Normal range of motion. Bilateral edema. No clubbing or cyanosis. No cords, erythema, or tenderness NEUROLOGICAL: Cranial nerves II through XII grossly intact. Normal speech, normal gait SKIN: Warm, Dry, normal turgor, no rashes or lesions noted. MDM: 05/11/20 03:26 This is an 79 y/o female with PMH of asthma, paroxysmal afib, TIA, and bilateral DVT's presenting to the ED due to chest pain that began this morning. - Pt with multiple risk factors - She was given ASA by EMS ddx: ACS vs asthma exacerbation vs CHF vs PE - Cardiac panel - EKG - BNP - CMP - CBC - CXR - Will give famotidine, tylenol for pain - Will give duonebs for shortness of breath 05/11/20 04:29 - Trop neg - BNP neg - CXR clear 05/11/20 05:13 CTA Chest: FINDINGS: There is no PE or dissection. Heart size is normal. The trachea and bronchi are patent. Calcified right hilar lymph nodes are due to old granulomatous disease. There is no pleural or pericardial effusion. The lungs are clear other than mild dependent atelectasis and a left lower lobe calcified granuloma.. No fractures identified. The upper abdominal structures are normal. IMPRESSION: No evidence of acute pathology. Old granulomatous disease. 05/11/20 05:19 will admit for tele obs 05/11/20 05:58 Past History - Medical History Allergies/Adverse Reactions: Allergies Allergy/AdvReac Type Severity Reaction Status Date / Time Penicillins Allergy Swelling Verified 05/11/20 03:02 Home Medications: Ambulatory Orders Levothyroxine [Synthroid -] 25 mcg PO DAILY 04/15/17 Losartan/Hydrochlorothiazide [Losartan-Hctz 100-25 mg Tab] 1 each PO DAILY 04/15/17 Simvastatin 40 mg PO HS 06/13/17 Apixaban [Eliquis] 2.5 mg PO BID 06/11/19 levETIRAcetam [Keppra -] 750 mg PO BID 08/12/19 Benzonatate 200 mg PO BID PRN 08/13/19 Meclizine HCl [Antivert -] 25 mg PO BID PRN 08/13/19 Albuterol 0.083% Nebulizer Prabha [Ventolin 0.083% Nebulizer Soln -] 1 amp NEB Q4H PRN amp 08/21/19 Montelukast Na [Singulair -] 10 mg PO HS #1 tablet 10/21/19 Budesonide/Formeterol Fumarate [SYMBICORT 160/4.5mcg -] 1 inh PO BID #1 cannist er 12/12/19 Guaifenesin 100 mg PO Q4H PRN 04/02/20 Pantoprazole Sodium [Protonix -] 40 mg PO DAILY 30 Days #30 tablet.ec 04/08/20 predniSONE [Deltasone -] 20 mg PO DAILY #60 tablet 04/08/20 predniSONE [Deltasone -] 60 mg PO BID #60 tablet 04/08/20 Anemia: No Asthma: Yes Cancer: No Cardiac Disorders: Yes (AORTIC STENOSIS) CVA: Yes (tia) COPD: No CHF: No DVT: No Dementia: No Diabetes: Yes GI Disorders: Yes (ULCER, HERNIA) Disorders: No HTN: Yes Hypercholesterolemia: Yes Liver Disease: No Seizures: Yes Thyroid Disease: Yes - Surgical History Abdominal Surgery: No Appendectomy: No Cardiac Surgery: No Cholecystectomy: No Lung Surgery: No Neurologic Surgery: No Orthopedic Surgery: No - Immunization History Immunization Up to Date: Yes - Psycho-Social/Smoking History Smoking Status: No Smoking History: Never smoked Have you smoked in the past 12 months: No Number of Cigarettes Smoked Daily: 0 Heart Score/ECG Review - History History: Slightly suspicious - Electrocardiogram EKG: Normal - Age Age: >/= 65 - Risk Factors Risk Factors Heart Score: Yes Hx Hypercholesterolemia, Yes Hx Hypertension, Yes Hx Obesity Based on the list above the patient has:: >/=3 risk factors or Hx atherosclerotic disease - Troponin Troponin: </= normal limit - Score Heart Score - Total: 4 - ECG Intrepretation Comment:: 05/11/20 05:[address] elevations or T wave inversions Sinus rhythm with occasional premature ventricular complexes and premature atrial complexes Vent rate 85bpm, AL interval 126ms, QRS duration 72ms, QT/QTc 352/418ms ED Treatment Course - LABORATORY CBC & Chemistry Diagram: 05/11/20 03:10 05/11/20 03:10 Discharge - Discharge Information Problems reviewed: Yes Clinical Impression/Diagnosis: Chest pain Qualifiers: Chest pain type: unspecified Qualified Code(s): R07.9 - Chest pain, unspecified Condition: Stable - Admission Yes - Follow up/Referral Referrals: Vasquez Abbott MD [Primary Care Provider] - - Patient Discharge Instructions - Post Discharge Activity
[2020-05-11 02:31] VITALS: BMI 31.7
[2020-05-11] MEDS ORDERED: FAMOTIDINE 20 MG/50 ML IVPB 20 MG/50 ML MG IVPB ONE ×2 (02:51→03:08)
[2020-05-11] MEDS ORDERED: ALBUTEROL SO4 2.5/IPRATROPIUM 0.5 INH SOL 3 ML VIAL.NEB. NEB ONE ×5 (02:51→07:59)
[2020-05-11] MEDS ORDERED: ACETAMINOPHEN 1000 MG/100 ML VIAL (NON FORMULARY) IVPB ONE (02:53)
[2020-05-11] MEDS ORDERED: ACETAMINOPHEN INJECTION 100 ML IVPB ONE (03:09)
[2020-05-11 03:49] LABS: ALBUMIN 2.9 g/dl (3.4-5.0); BILIRUBIN,TOTAL 0.3 mg/dL (0.2-1); BLOOD UREA NITROGEN 20.9 mg/dL (7-18); CALCIUM 8.8 mg/dL (8.5-10.1); N-TERMINAL BNP 291.3 pg/ml (5-450); POTASSIUM 4.1 mmol/L (3.5-5.1); TOT PROT 5.5 g/dl (6.4-8.2)
--- NOTE | 2020-05-11 03:49 | PDOC ---
Attending Attestation - Resident Resident Name: AshleyMichelle - ED Attending Attestation I have performed the following: I have examined & evaluated the patient, The case was reviewed & discussed with the resident, I agree w/resident's findings & plan, Exceptions are as noted - HPI HPI: 05/11/20 03:49 79 F with h/o asthma, pAfib, TIA, DVTs presenting with chest pain. Pt reports that the pain started this morning as L sided chest pain. She took a nitroglycerin, which resolved the pain. However, this evening the pain recurred and did not respond to nitro. Pt also complains of SOB. - Physicial Exam PE: 05/11/20 03:52 See resident exam - Medical Decision Making 05/11/20 03:52 79 F with chest pain + SOB. Will r/o ACS with EKG and trop. Pt also with h/o DVT. Will r/o PE with CTA. - Labs, trop - CTA chest Discharge - Discharge Information Problems reviewed: Yes Clinical Impression/Diagnosis: SOB (shortness of breath) Chest pain Qualifiers: Chest pain type: unspecified Qualified Code(s): R07.9 - Chest pain, unspecified Condition: Stable - Follow up/Referral - Patient Discharge Instructions - Post Discharge Activity
[2020-05-11 03:51] LABS: BASO % 0.1 % (0-2.0); EOS % 0.3 % (0-4.5); HEMATOCRIT 40.6 % (32.4-45.2); HEMOGLOBIN 13.2 GM/dL (10.7-15.3); LYMPH % 15.4 % (8-40); MCHC 32.4 g/dl (32.0-36.0); MEAN CELL VOLUME 86.3 fl (80-96); MEAN PLT VOLUME 8.8 fl (7.5-11.1); MONO % 8.1 % (3.8-10.2); NEUT % 76.1 % (42.8-82.8); PLATELET COUNT 177 K/MM3 (134-434); RDW 16.9 % (11.6-15.6); WHITE BLOOD COUNT 13.3 K/mm3 (4.0-10.0)
[2020-05-11 05:50] LABS: MAGNESIUM 2.5 mg/dL (1.8-2.4)
[2020-05-11] MEDS ORDERED: MECLIZINE HCL 25 MG TABLET (FP) PO PRN (06:18)
[2020-05-11] MEDS ORDERED: ALBUTEROL SO4 0.083% IH SOL 2.5 MG/3 ML VIAL.NEB. NEB PRN (06:23)
[2020-05-11 07:14] LABS: ANISOCYTOSIS 0; HELMET CELLS 0; HOWELL-JOLLY BODIES 0; MACROCYTOSIS 0; OVALOCYTE 0; PLATELET ESTIMATE DECREASED; ROULEAU 0; SICKELED CELLS 0; TARGET CELLS 0; TEAR DROP CELLS 0; TOXIC GRANULATION 0
[2020-05-11] MEDS ORDERED: PANTOPRAZOLE 40 MG TABLET ONE (07:44)
[2020-05-11] MEDS ORDERED: HYDROCHLOROTHIAZIDE 25 MG TABLET (FP) ONE (07:44)
[2020-05-11] MEDS ORDERED: APIXABAN 2.5 MG TABLET ONE (07:44)
[2020-05-11] MEDS ORDERED: levETIRAcetam 500 MG TABLET (FP) PO ONE (07:45)
[2020-05-11] MEDS ORDERED: LEVOTHYROXINE NA 25 MCG TABLET (FP) ONE (07:45)
[2020-05-11] MEDS ORDERED: LOSARTAN POTASSIUM 50 MG TABLET (FP) ONE (07:45)
--- NOTE | 2020-05-11 08:00 | CON.CARD ---
Consult Consult Specialty:: cardio - History of Present Illness Chief Complaint: cp History of Present Illness: 79 yo F here with CP. Pt sees Dr Abbott of [facility]. sees Dr Heydi Marcial for cardiology. has chronic CP. then again sx's occurred on DOA. described as sharp, non-radiating. along sternum, radiating to underneath left breast. occurred at rest. lasted seconds only, yet she believes SL nitro may have relieved the pain (??). describes new left arm numbness as well x few days. cp returned later in day with assctd sob, SL nitro x 3 no relief--came to ER pt states she has chronic cough and sob related to her asthma. also reports pain over R eye/forehead, and pain behind base of skull on L with L neck pain, at rest. no more CP episodes since in hospital. 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, Seizure ( last seizure >10yrs ago), Vertigo Cardio/Vascular: Yes: Aortic Stenosis, HTN Pulmonary: Yes: Asthma Gastrointestinal: Yes: Gastritis Musculoskeletal: Yes: Other (arthritis (type not specificed)) ENT: Yes: Sinusitis Endocrine: Yes: Hypothyroidism Additional Medical History: DVTs, HPL - Past Surgical History Past Surgical History: Yes: Breast Biopsy, Hysterectomy (Possible) - Alcohol/Substance Use Hx Alcohol Use: No History of Substance Use: reports: None - Smoking History Smoking history: Never smoked Have you smoked in the past 12 months: No Aproximately how many cigarettes per day: 0 - Social History ADL: Independent Occupation: retired 20 yrs ago History of Recent Travel: Yes (traveled from [place]) Home Medications - Allergies Allergies/Adverse Reactions: Allergies Allergy/AdvReac Type Severity Reaction Status Date / Time Penicillins Allergy Swelling Verified 05/11/20 03:02 - Home Medications Home Medications: Ambulatory Orders Levothyroxine [Synthroid -] 25 mcg PO DAILY 04/15/17 Losartan/Hydrochlorothiazide [Losartan-Hctz 100-25 mg Tab] 1 each PO DAILY 04/15/17 Simvastatin 40 mg PO HS 06/13/17 Apixaban [Eliquis] 2.5 mg PO BID 06/11/19 levETIRAcetam [Keppra -] 750 mg PO BID 08/12/19 Benzonatate 200 mg PO BID PRN 08/13/19 Meclizine HCl [Antivert -] 25 mg PO BID PRN 08/13/19 Albuterol 0.083% Nebulizer Prabha [Ventolin 0.083% Nebulizer Soln -] 1 amp NEB Q4H PRN amp 08/21/19 Montelukast Na [Singulair -] 10 mg PO HS #1 tablet 10/21/19 Budesonide/Formeterol Fumarate [SYMBICORT 160/4.5mcg -] 1 inh PO BID #1 cannister 12/12/19 Guaifenesin 100 mg PO Q4H PRN 04/02/20 Pantoprazole Sodium [Protonix -] 40 mg PO DAILY 30 Days #30 tablet.ec 04/08/20 predniSONE [Deltasone -] 20 mg PO DAILY #60 tablet 04/08/20 predniSONE [Deltasone -] 60 mg PO BID #60 tablet 04/08/20 Family Medical History Family Hx Cancer: Mother (Colon cancer), Sister (BCA) Review of Systems - Review of Systems Constitutional: denies: Chills, Fever Eyes: denies: Eye Pain HENT: denies: Nasal Congestion Neck: denies: Stiffness Cardiovascular: denies: Palpitations Respiratory: denies: Orthopnea, PND Gastrointestinal: denies: Diarrhea, Rectal Bleeding Genitourinary: denies: Burning, Hematuria Musculoskeletal: denies: Muscle Pain Integumentary: denies: Rash Neurological: denies: Numbness, Seizure, Syncope Endocrine: denies: Excessive Sweating Hematology/Lymphatic: denies: Excessive Bleeding Vital Signs: Vital Signs Temperature 97.8 F 05/11/20 05:59 Pulse Rate 78 05/11/20 05:59 Respiratory Rate 16 05/11/20 05:59 Blood Pressure 116/86 05/11/20 05:59 O2 Sat by Pulse Oximetry (%) 99 05/11/20 05:59 Constitutional: Yes: Well Nourished, No Distress Eyes: No: Sclera Icterus HENT: No: Nasal Congestion Neck: No: Decreased ROM Respiratory: Yes: CTA Bilaterally. No: Accessory Muscle Use Gastrointestinal: Yes: Normal Bowel Sounds. No: Distention, Hepatomegaly, Palpable Mass, Tenderness Cardiovascular: Yes: Regular Rate and Rhythm JVD: No Carotid Bruit: No PMI: Non-Displaced Heart Sounds: Yes: S1, S2. No: Gallop Murmur: No: Systolic Murmur, Diastolic Murmur Musculoskeletal: Yes: Other (No kyphosis) Extremities: No: Cool, Cyanosis Edema: No Peripheral Pulses: 2+ Left Carotid, 2+ Right Carotid, 2+ Left Doralis Pedis, 2+ Right Dorsalis Pedis Integumentary: No: Jaundice Neurological: Yes: Alert, Oriented (x3) Psychiatric: No: Agitated - Other Data Labs, Other Data: CBC, BMP 05/11/20 03:10 05/11/20 03:10 Troponin, BNP 05/11/20 03:10 Troponin I 0.02 B-Natriuretic Peptide 291.3 Troponin, BNP 05/11/20 03:10 Troponin I 0.02 B-Natriuretic Peptide 291.3 Assessment/Plan ECG: NSR with PVC, APC. no ST-T abn, no q waves CXR: clear lungs chest pain: -chronic sx, sees outside cardio (Dr. Marcial, [facility]). sx's going on for long time, had stress test approx 2 mo ago per dtr, they were told it was fine (results not currently available). -history equivocal for whether or not was truly nitro-responsive. -on exam, she is very tender over the area, but not quite reproduces sx's. -trop x 2 neg, ecg non-ischemic. -suspect mskel > anginal etiology, but clinical picture uncertain. -given recent stress test normal, repeat stress testing is not indicated here. reasonable to image coronaries with CCTA as outpatient. 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 -would observe for 24 hrs here--if no ischemic sx's or hemodynamic instability, ok for discharge at that time. Afib: -sinus here -not on AVN blockers at home--no change -cont home Eliquis 2.5 bid (indicated dose is 5mg based on her wt/creatinine, however she is following with outside cardio hence will not change plan) HTN -bp controlled -cont losartan, HCTZ home regimen h/o TIA -on AC, statin at home--continue same h/o DVTs -AC per outside MDs' plan
[2020-05-11] MEDS: LEVOTHYROXINE NA 25 MCG TABLET (FP) PO SCH (08:17)
[2020-05-11] MEDS: PANTOPRAZOLE 40 MG TABLET PO SCH (08:17)
[2020-05-11] MEDS: HYDROCHLOROTHIAZIDE 25 MG TABLET (FP) PO SCH (09:00)
[2020-05-11] MEDS: levETIRAcetam 250 MG TABLET PO SCH ×2 (09:00→22:48)
[2020-05-11] MEDS: LOSARTAN POTASSIUM 50 MG TABLET (FP) PO SCH (09:00)
[2020-05-11] MEDS: APIXABAN 2.5 MG TABLET PO SCH ×2 (09:00→22:48)
[2020-05-11] MEDS ORDERED: PATIENT'S OWN MEDICATION (NON-FORMULARY) (Losartan/Hydrochlorothiazide [Losartan-Hctz 100- PO SCH (10:00)
[2020-05-11] MEDS: BUDESONIDE/FORMETEROL FUMARATE 160/4.5 mcg INHALER IH SCH ×2 (10:25→23:42)
--- NOTE | 2020-05-11 12:56 | HP ---
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, Seizure ( last seizure >10yrs ago), Vertigo Cardiovascular: Yes: Aortic Stenosis, HTN Pulmonary: Yes: Asthma Gastrointestinal: Yes: Gastritis Heme/Onc: Yes: Other (Chronic DVTs) Musculoskeletal: Yes: Other (arthritis (type not specificed)) ENT: Yes: Sinusitis Endocrine: Yes: Hypothyroidism - Past Surgical History Past Surgical History: Yes: Breast Biopsy, Hysterectomy (Possible) - Smoking History Smoking history: Never smoked Have you smoked in the past 12 months: No Aproximately how many cigarettes per day: 0 - Alcohol/Substance Use Hx Alcohol Use: No History of Substance Use: reports: None - Social History ADL: Independent Occupation: retired 20 yrs ago History of Recent Travel: Yes (traveled from [place]) Home Medications - Allergies Allergies/Adverse Reactions: Allergies Allergy/AdvReac Type Severity Reaction Status Date / Time Penicillins Allergy Swelling Verified 05/11/20 03:02 - Home Medications Home Medications: Ambulatory Orders Levothyroxine [Synthroid -] 25 mcg PO DAILY 04/15/17 Losartan/Hydrochlorothiazide [Losartan-Hctz 100-25 mg Tab] 1 each PO DAILY 04/15/17 Simvastatin 40 mg PO HS 06/13/17 Apixaban [Eliquis] 2.5 mg PO BID 06/11/19 levETIRAcetam [Keppra -] 750 mg PO BID 08/12/19 Benzonatate 200 mg PO BID PRN 08/13/19 Meclizine HCl [Antivert -] 25 mg PO BID PRN 08/13/19 Albuterol 0.083% Nebulizer Prabha [Ventolin 0.083% Nebulizer Soln -] 1 amp NEB Q4H PRN amp 08/21/19 Montelukast Na [Singulair -] 10 mg PO HS #1 tablet 10/21/19 Budesonide/Formeterol Fumarate [SYMBICORT 160/4.5mcg -] 1 inh PO BID #1 cannister 12/12/19 Guaifenesin 100 mg PO Q4H PRN 04/02/20 Pantoprazole Sodium [Protonix -] 40 mg PO DAILY 30 Days #30 tablet.ec 04/08/20 predniSONE [Deltasone -] 20 mg PO DAILY #60 tablet 04/08/20 predniSONE [Deltasone -] 60 mg PO BID #60 tablet 04/08/20 Family Medical History Family Hx Cancer: Mother (Colon cancer), Sister (BCA) Review of Systems - Review of Systems Cardiovascular: reports: Chest Pain Respiratory: reports: SOB Gastrointestinal: reports: No Symptoms Genitourinary: reports: No Symptoms Psychiatric: reports: Anxiety Physical Examination Vital Signs: Vital Signs Temperature 98.4 F 05/11/20 09:00 Pulse Rate 88 05/11/20 09:00 Respiratory Rate 26 H 05/11/20 09:00 Blood Pressure 126/75 05/11/20 09:00 O2 Sat by Pulse Oximetry (%) 92 L 05/11/20 09:00 Constitutional: Yes: Anxious Eyes: Yes: Conjunctiva Clear Neck: Yes: Supple Cardiovascular: Yes: Regular Rate and Rhythm Respiratory: Yes: Wheezes (bilateral--- scattered), Other Gastrointestinal: Yes: Soft Edema: No Labs: CBC, BMP 05/11/20 03:10 05/11/20 03:10 Imaging - Results Chest X-ray: Report Reviewed Cat Scan: Report Reviewed Problem List - Problems (1) Chest pain Code(s): R07.9 - CHEST PAIN, UNSPECIFIED Qualifiers: Chest pain type: unspecified Qualified Code(s): R07.9 - Chest pain, unspecified (2) Anxiety Code(s): F41.9 - ANXIETY DISORDER, UNSPECIFIED (3) Asthma exacerbation Code(s): J45.901 - UNSPECIFIED ASTHMA WITH (ACUTE) EXACERBATION Qualifiers: Asthma severity: unspecified severity Asthma persistence: unspecified Qualified Code(s): J45.901 - Unspecified asthma with (acute) exacerbation (4) Elevated WBC count Code(s): D72.829 - ELEVATED WHITE BLOOD CELL COUNT, UNSPECIFIED (5) Paroxysmal A-fib Code(s): I48.0 - PAROXYSMAL ATRIAL FIBRILLATION Assessment/Plan admit to telemetry meds Reviewed Chest pressure--- likely due to asthma exac Cardiology on case we will consult pulmonary also Steroids Nebulizer treatment discussed with [facility] also Will follow
[2020-05-11 14:03] LABS: ARTERIAL BLD GAS O2 SATURATION 98.9 mmHg (95-98); ARTERIAL BLOOD GAS BASE EXCESS 0.5 mmol/L (-2-2); ARTERIAL BLOOD GAS PO2 142.2 mmHg (80-100); ARTERIAL BLOOD GAS pH 7.415 (7.350-7.450)
[2020-05-11 14:05] LABS: ALLENS TEST POSITIVE; VENT RATE 19
[2020-05-11] MEDS ORDERED: methylPREDNISolone NA SUCC 40 MG/1 ML VIAL ONE (14:20)
[2020-05-11] MEDS: methylPREDNISolone NA SUCC 40 MG/1 ML VIAL IVPUSH SCH ×2 (14:35→22:48)
[2020-05-11] MEDS ORDERED: PATIENT'S OWN MEDICATION (NON-FORMULARY) (Simvastatin [Simvastatin] 40 MG) PO SCH (22:00)
[2020-05-11] MEDS: ATORVASTATIN CA 20 MG TABLET (FP) PO SCH (22:48)
[2020-05-11] MEDS: MONTELUKAST NA 10 MG TABLET PO SCH (22:48)
[2020-05-12] MEDS: methylPREDNISolone NA SUCC 40 MG/1 ML VIAL IVPUSH SCH ×4 (04:18→22:02)
[2020-05-12] MEDS: PANTOPRAZOLE 40 MG TABLET PO SCH (06:28)
[2020-05-12] MEDS: LEVOTHYROXINE NA 25 MCG TABLET (FP) PO SCH (06:28)
[2020-05-12 07:59] LABS: BASO % 0.2 % (0-2.0); HEMATOCRIT 41.4 % (32.4-45.2); HEMOGLOBIN 13.3 GM/dL (10.7-15.3); LYMPH % 4.6 % (8-40); MCH 28.2 pg (25.7-33.7); MCHC 32.2 g/dl (32.0-36.0); MEAN CELL VOLUME 87.6 fl (80-96); MEAN PLT VOLUME 9.2 fl (7.5-11.1); MONO % 1.1 % (3.8-10.2); NEUT % 94.1 % (42.8-82.8); PLATELET COUNT 169 K/MM3 (134-434); RBC 4.73 M/mm3 (3.60-5.2); RDW 17.3 % (11.6-15.6); WHITE BLOOD COUNT 16.4 K/mm3 (4.0-10.0)
[2020-05-12 08:33] LABS: ALBUMIN 2.9 g/dl (3.4-5.0); BILIRUBIN,TOTAL 0.4 mg/dL (0.2-1); BLOOD UREA NITROGEN 23.9 mg/dL (7-18); CREATININE 1.1 mg/dL (0.55-1.3); POTASSIUM 5.6 mmol/L (3.5-5.1); TOT PROT 5.8 g/dl (6.4-8.2)
[2020-05-12 08:41] LABS: CALCIUM 5.9 mg/dL (8.5-10.1)
[2020-05-12 09:36] LABS: ANISOCYTOSIS 1+; MACROCYTOSIS 0; PLATELET ESTIMATE NORMAL
[2020-05-12] MEDS: levETIRAcetam 250 MG TABLET PO SCH ×2 (09:53→22:02)
[2020-05-12] MEDS: LOSARTAN POTASSIUM 50 MG TABLET (FP) PO SCH (09:54)
[2020-05-12] MEDS: APIXABAN 2.5 MG TABLET PO SCH ×2 (09:54→22:02)
[2020-05-12] MEDS: HYDROCHLOROTHIAZIDE 25 MG TABLET (FP) PO SCH (09:55)
[2020-05-12] MEDS: BUDESONIDE/FORMETEROL FUMARATE 160/4.5 mcg INHALER IH SCH ×2 (10:05→22:02)
--- NOTE | 2020-05-12 12:59 | PN ---
Progress Note, Physician History of Present Illness: patient seen and examined today looks and feels much better Decreased wheezing mood is pleasant Afebrile - Current Medication List Current Medications: Active Medications Albuterol Sulfate (Ventolin 0.083% Nebulizer Soln -) 1 amp NEB Q4H PRN PRN Reason: SHORT OF BREATH/WHEEZING Last Admin: 05/11/20 08:23 Dose: 1 amp Documented by: Apixaban (Eliquis -) 2.5 mg PO BID [facility] Last Admin: 05/12/20 09:54 Dose: 2.5 mg Documented by: Atorvastatin Calcium (Lipitor -) 20 mg PO [facility] Last Admin: 05/11/20 22:48 Dose: 20 mg Documented by: Budesonide/Formoterol Fumarate (Symbicort 160/4.5mcg -) 1 puff IH BID [facility] Last Admin: 05/12/20 10:05 Dose: 1 puff Documented by: Hydrochlorothiazide (Hctz -) 25 mg PO DAILY [facility] Last Admin: 05/12/20 09:55 Dose: 25 mg Documented by: Insulin Aspart (Novolog Vial Sliding [facility] -) [facility] Protocol Levetiracetam (Keppra -) 750 mg PO BID [facility] Last Admin: 05/12/20 09:53 Dose: 750 mg Documented by: Levothyroxine Sodium (Synthroid -) 25 mcg PO ACBK [facility] Last Admin: 05/12/20 06:28 Dose: 25 mcg Documented by: Losartan Potassium (Cozaar -) 100 mg PO DAILY [facility] Last Admin: 05/12/20 09:54 Dose: 100 mg Documented by: Meclizine HCl (Antivert -) 25 mg PO BID PRN PRN Reason: dizziness Methylprednisolone Sodium Succinate (Solu-Medrol -) 40 mg IVPUSH Q6H-IV [facility] Last Admin: 05/12/20 09:53 Dose: 40 mg Documented by: Montelukast Sodium (Singulair -) 10 mg PO [facility] Last Admin: 05/11/20 22:48 Dose: 10 mg Documented by: Pantoprazole Sodium (Protonix -) 40 mg PO ACBK [facility] Last Admin: 05/12/20 06:28 Dose: 40 mg Documented by: - Objective Vital Signs: Vital Signs Temperature 98.2 F 05/12/20 10:00 Pulse Rate 101 H 05/12/20 10:00 Respiratory Rate 20 05/12/20 10:00 Blood Pressure 127/56 L 05/12/20 10:00 O2 Sat by Pulse Oximetry (%) 98 05/12/20 12:36 Constitutional: Yes: No Distress, Calm Eyes: Yes: Conjunctiva Clear Neck: Yes: Supple Cardiovascular: Yes: Regular Rate and Rhythm Respiratory: Yes: Wheezes (Scattered) Gastrointestinal: Yes: Soft Edema: No Neurological: Yes: Alert Labs: CBC, BMP 05/12/20 06:36 05/12/20 06:36 Problem List - Problems (1) Chest pain Code(s): R07.9 - CHEST PAIN, UNSPECIFIED Qualifiers: Chest pain type: unspecified Qualified Code(s): R07.9 - Chest pain, unspecified (2) Anxiety Code(s): F41.9 - ANXIETY DISORDER, UNSPECIFIED (3) Asthma exacerbation Code(s): J45.901 - UNSPECIFIED ASTHMA WITH (ACUTE) EXACERBATION Qualifiers: Asthma severity: unspecified severity Asthma persistence: unspecified Qualified Code(s): J45.901 - Unspecified asthma with (acute) exacerbation (4) Elevated WBC count Code(s): D72.829 - ELEVATED WHITE BLOOD CELL COUNT, UNSPECIFIED (5) Paroxysmal A-fib Code(s): I48.0 - PAROXYSMAL ATRIAL FIBRILLATION Assessment/Plan better Continue present care Steroids out of bed to chair GI prophylaxis We'll continue to follow Discussed with nursing staff also
--- NOTE | 2020-05-12 13:10 | CON.PULM ---
Consult Consult Specialty:: PULM/CCM Referred by:: PERNELL Reason for Consultation:: SOB & CP - History of Present Illness Chief Complaint: SOB & CP History of Present Illness: 79 F, with apparent h/o asthma (Mild Persistent), pAfib, TIA, and DVTs. Admitted via the ER due to CP and SOB. Patient apparently took nitroglycerin which resolved the pain. However, she had recurrence of the CP on the evening and did not respond to nitro. Pt also reports some increasing SOB. No fever or chills, No known COVID19 exposure. 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 No: Cancer, COPD, O2 Dependent, Previously Intubated, Pulmonary Embolus, Pulmonary Fibrosis, Sleep Apnea Gastrointestinal: Yes: Gastritis ...: No Musculoskeletal: Yes: Other (arthritis (type not specificed)) ENT: Yes: Sinusitis Endocrine: Yes: Hypothyroidism Additional Medical History: DVTs, HPL - Past Surgical History Past Surgical History: Yes: Breast Biopsy, Hysterectomy (Possible) - Alcohol/Substance Use Hx Alcohol Use: No History of Substance Use: reports: None - Smoking History Smoking history: Never smoked Have you smoked in the past 12 months: No Aproximately how many cigarettes per day: 0 - Social History ADL: Independent Occupation: retired 20 yrs ago History of Recent Travel: Yes (traveled from [place]) Home Medications - Allergies Allergies/Adverse Reactions: Allergies Allergy/AdvReac Type Severity Reaction Status Date / Time Penicillins Allergy Swelling Verified 05/11/20 03:02 - Home Medications Home Medications: Ambulatory Orders Levothyroxine [Synthroid -] 25 mcg PO DAILY 04/15/17 Losartan/Hydrochlorothiazide [Losartan-Hctz 100-25 mg Tab] 1 each PO DAILY 04/15/17 Simvastatin 40 mg PO HS 06/13/17 Apixaban [Eliquis] 2.5 mg PO BID 06/11/19 levETIRAcetam [Keppra -] 750 mg PO BID 08/12/19 Benzonatate 200 mg PO BID PRN 08/13/19 Meclizine HCl [Antivert -] 25 mg PO BID PRN 08/13/19 Albuterol 0.083% Nebulizer Prabha [Ventolin 0.083% Nebulizer Soln -] 1 amp NEB Q4H PRN amp 08/21/19 Montelukast Na [Singulair -] 10 mg PO HS #1 tablet 10/21/19 Budesonide/Formeterol Fumarate [SYMBICORT 160/4.5mcg -] 1 inh PO BID #1 cannister 12/12/19 Guaifenesin 100 mg PO Q4H PRN 04/02/20 Pantoprazole Sodium [Protonix -] 40 mg PO DAILY 30 Days #30 tablet.ec 04/08/20 predniSONE [Deltasone -] 20 mg PO DAILY #60 tablet 04/08/20 predniSONE [Deltasone -] 60 mg PO BID #60 tablet 04/08/20 Family Medical History Family Hx Cancer: Mother (Colon cancer), Sister (BCA) Review of Systems - Review of Systems Constitutional: reports: Malaise. denies: Chills, Night Sweats, Unintentional Wgt. Loss Eyes: reports: No Symptoms HENT: reports: No Symptoms Neck: reports: No Symptoms Cardiovascular: reports: Chest Pain, Shortness of Breath. denies: Edema, Palpitations Respiratory: reports: Cough, SOB, SOB on Exertion. denies: Snoring, Wheezing Gastrointestinal: reports: No Symptoms Genitourinary: reports: No Symptoms Breasts: reports: No Symptoms Reported Musculoskeletal: reports: Back Pain Integumentary: reports: No Symptoms Neurological: reports: No Symptoms Endocrine: reports: No Symptoms, Intolerance to Heat Psychiatric: reports: No Symptoms Physical Exam Vital Sings: Vital Signs Temperature 98.2 F 05/12/20 10:00 Pulse Rate 101 H 05/12/20 10:00 Respiratory Rate 20 05/12/20 10:00 Blood Pressure 127/56 L 05/12/20 10:00 O2 Sat by Pulse Oximetry (%) 98 05/12/20 12:36 Constitutional: Yes: No Distress, Anxious, Obese HENT: Yes: Atraumatic, Normocephalic Neck: Yes: Supple, Trachea Midline Cardiovascular: Yes: Regular Rate and Rhythm. No: Varicosities Respiratory: Yes: Cough, Diminished, Rhonchi, SOB, SOB on Exertion. No: Rales, Stridor, Tachypnea, Wheezes ...Inspection: Yes: WNL ...Clubbing: No Gastrointestinal: Yes: Normal Bowel Sounds, Soft, Abdomen, Obese Renal/: Yes: WNL Musculoskeletal: Yes: WNL Extremities: Yes: WNL Edema: No Peripheral Pulses WNL: Yes Integumentary: Yes: WNL Neurological: Yes: WNL, Alert, Oriented ...Motor Strength: WNL Psychiatric: Yes: WNL, Alert, Oriented Labs: CBC, BMP 05/12/20 06:36 ABG Results ABG pH 7.415 (7.350-7.450) 05/11/20 13:40 ABG HCO3 25.0 mmol/L (22-27) 05/11/20 13:40 ABG O2 Sat (Measured) 98.9 mmHg (95-98) H 05/11/20 13:40 ABG O2 Content No Result Required. 05/11/20 13:40 ABG Base Excess 0.5 mmol/L (-2-2) 05/11/20 13:40 Imaging - Results Chest X-ray: Report Reviewed, Image Reviewed Cat Scan: Report Reviewed, Image Reviewed Problem List - Problems (1) Chest pain Code(s): R07.9 - CHEST PAIN, UNSPECIFIED Qualifiers: Chest pain type: unspecified Qualified Code(s): R07.9 - Chest pain, unspecified (2) Acute bronchitis Code(s): J20.9 - ACUTE BRONCHITIS, UNSPECIFIED Qualifiers: Bronchitis organism: unspecified organism Qualified Code(s): J20.9 - Acute bronchitis, unspecified (3) Acute exacerbation of mild persistent extrinsic asthma Code(s): J45.31 - MILD PERSISTENT ASTHMA WITH (ACUTE) EXACERBATION (4) Anxiety Code(s): F41.9 - ANXIETY DISORDER, UNSPECIFIED (5) Atypical chest pain Code(s): R07.89 - OTHER CHEST PAIN (6) Cough Code(s): R05 - COUGH (7) Hypertension Code(s): I10 - ESSENTIAL (PRIMARY) HYPERTENSION (8) Hypothyroid Code(s): E03.9 - HYPOTHYROIDISM, UNSPECIFIED (9) Paroxysmal A-fib Code(s): I48.0 - PAROXYSMAL ATRIAL FIBRILLATION (10) Hyperlipemia Code(s): E78.5 - HYPERLIPIDEMIA, UNSPECIFIED Qualifiers: Hyperlipidemia type: pure hypercholesterolemia Qualified Code(s): E78.00 - Pure hypercholesterolemia, unspecified (11) Hypertension Code(s): I10 - ESSENTIAL (PRIMARY) HYPERTENSION Qualifiers: Hypertension type: essential hypertension Qualified Code(s): I10 - Essential (primary) hypertension (12) Hypothyroidism Code(s): E03.9 - HYPOTHYROIDISM, UNSPECIFIED Qualifiers: Hypothyroidism type: unspecified Qualified Code(s): E03.9 - Hypothyroidism, unspecified (13) Moderate aortic stenosis Code(s): I35.0 - NONRHEUMATIC AORTIC (VALVE) STENOSIS (14) Seizure disorder Code(s): G40.909 - EPILEPSY, UNSP, NOT INTRACTABLE, WITHOUT STATUS EPILEPTICUS (15) Type 2 diabetes mellitus Code(s): E11.9 - TYPE 2 DIABETES MELLITUS WITHOUT COMPLICATIONS Qualifiers: Diabetes mellitus senior living insulin use: without rn long term care use Diabetes mellitus complication status: without complication Qualified Code(s): E11.9 - Type 2 diabetes mellitus without complications (16) Chest pain Code(s): R07.9 - CHEST PAIN, UNSPECIFIED Qualifiers: Chest pain type: unspecified Qualified Code(s): R07.9 - Chest pain, unspecified (17) Dyspnea and respiratory abnormalities Code(s): R06.00 - DYSPNEA, UNSPECIFIED; R06.89 - OTHER ABNORMALITIES OF BREATHING (18) Shortness of breath Code(s): R06.02 - SHORTNESS OF BREATH Assessment/Plan PLAN: Short coarse of Medrol Symbicort BID BD TX PRN No smoking Monitor off ABX Cardiology noted. Will follow. Thank you. Dr Christopher
[2020-05-12 13:37] LABS: ALBUMIN 3.3 g/dl (3.4-5.0); BLOOD UREA NITROGEN 26.1 mg/dL (7-18); CALCIUM 9.2 mg/dL (8.5-10.1); CREATININE 1.1 mg/dL (0.55-1.3); POTASSIUM 4.4 mmol/L (3.5-5.1); TOT PROT 6.1 g/dl (6.4-8.2)
[2020-05-12 13:38] LABS: BILIRUBIN,TOTAL 0.4 mg/dL (0.2-1)
--- NOTE | 2020-05-12 15:19 | PN ---
Progress Note, Physician Chief Complaint: cp History of Present Illness: no more CP like yesterday. few milder sensations in chest she says stable, chronic sob at rest, cough no syncope - Current Medication List Current Medications: Active Medications Albuterol Sulfate (Ventolin 0.083% Nebulizer Soln -) 1 amp NEB Q4H PRN PRN Reason: SHORT OF BREATH/WHEEZING Last Admin: 05/11/20 08:23 Dose: 1 amp Documented by: Apixaban (Eliquis -) 2.5 mg PO BID [facility] Last Admin: 05/12/20 09:54 Dose: 2.5 mg Documented by: Atorvastatin Calcium (Lipitor -) 20 mg PO [facility] Last Admin: 05/11/20 22:48 Dose: 20 mg Documented by: Budesonide/Formoterol Fumarate (Symbicort 160/4.5mcg -) 1 puff IH BID [facility] Last Admin: 05/12/20 10:05 Dose: 1 puff Documented by: Hydrochlorothiazide (Hctz -) 25 mg PO DAILY [facility] Last Admin: 05/12/20 09:55 Dose: 25 mg Documented by: Insulin Aspart ([facility]iding [facility] -) [facility]; Protocol Levetiracetam (Keppra -) 750 mg PO BID [facility] Last Admin: 05/12/20 09:53 Dose: 750 mg Documented by: Levothyroxine Sodium (Synthroid -) 25 mcg PO ACBK [facility] Last Admin: 05/12/20 06:28 Dose: 25 mcg Documented by: Losartan Potassium (Cozaar -) 100 mg PO DAILY [facility] Last Admin: 05/12/20 09:54 Dose: 100 mg Documented by: Meclizine HCl (Antivert -) 25 mg PO BID PRN PRN Reason: dizziness Methylprednisolone Sodium Succinate (Solu-Medrol -) 40 mg IVPUSH Q6H-IV [facility] Last Admin: 05/12/20 09:53 Dose: 40 mg Documented by: Montelukast Sodium (Singulair -) 10 mg PO [facility] Last Admin: 05/11/20 22:48 Dose: 10 mg Documented by: Pantoprazole Sodium (Protonix -) 40 mg PO ACBK [facility] Last Admin: 05/12/20 06:28 Dose: 40 mg Documented by: - Objective Vital Signs: Vital Signs Temperature 98.1 F 05/12/20 14:25 Pulse Rate 103 H 05/12/20 14:25 Respiratory Rate 18 05/12/20 14:25 Blood Pressure 139/84 05/12/20 14:25 O2 Sat by Pulse Oximetry (%) 99 05/12/20 14:25 Constitutional: Yes: Well Nourished, No Distress, Calm Cardiovascular: Yes: Regular Rate and Rhythm, S1, S2. No: Gallop, Murmur Respiratory: Yes: Regular, CTA Bilaterally. No: Accessory Muscle Use Extremities: No: Cold Edema: No Neurological: Yes: Alert, Oriented. No: Seizure Labs: CBC, BMP 05/12/20 06:36 05/12/20 12:36 Assessment/Plan ECG: NSR with PVC, APC. no ST-T abn, no q waves CXR: clear lungs tele: NSR chest pain: -chronic sx, sees outside cardio (Dr. Marcial, [facility]). sx's going on for long time, had stress test approx 2 mo ago per dtr, they were told it was fine (results not currently available). -history equivocal for whether or not was truly nitro-responsive. -on exam, she is very tender over the area, but not quite reproduces sx's. -trop x 2 neg, ecg non-ischemic. -suspect mskel > anginal etiology, but clinical picture uncertain. -given recent stress test normal, repeat stress testing is not indicated here. reasonable to image coronaries with CCTA as outpatient. 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 -clinically stable, no concerning sx's for ongoing cardiac ischemia. pt ok for discharge, should call Dr. Marcial tomorrow to arrange CCTA. Afib: -sinus here -not on AVN blockers at home--no change -cont home Eliquis 2.5 bid (indicated dose is 5mg based on her wt/creatinine, however she is following with outside cardio hence will not change plan) HTN -bp controlled -cont losartan, HCTZ home regimen h/o TIA -on AC, statin at home--continue same h/o DVTs -AC per outside MDs' plan
[2020-05-12] MEDS: INSULIN SLIDING SCALE (NOVOLOG) 1 VIAL SQ SCH (17:25)
--- NOTE | 2020-05-12 18:27 | EKG ---
Test Reason : Blood Pressure : / mmHG Vent. Rate : 085 BPM Atrial Rate : 085 BPM P-R Int : 126 ms QRS Dur : 072 ms QT Int : 352 ms P-R-T Axes : 044 006 002 degrees QTc Int : 418 ms SINUS RHYTHM WITH OCCASIONAL PREMATURE VENTRICULAR COMPLEXES AND PREMATURE ATRIAL COMPLEXES OTHERWISE NORMAL ECG WHEN COMPARED WITH ECG OF 05-APR-2020 02:33, PREMATURE ATRIAL COMPLEXES ARE NOW PRESENT ST NOW DEPRESSED IN INFERIOR LEADS Confirmed by MD THEODORE, JOSE MARIA ([id number]) on 05/12/2020 6:27:01 PM Referred By: Confirmed By:JOSE MARIA JAIMES MD
[2020-05-12] MEDS: ATORVASTATIN CA 20 MG TABLET (FP) PO SCH (22:01)
[2020-05-12] MEDS: MONTELUKAST NA 10 MG TABLET PO SCH (22:01)
[2020-05-13] MEDS: methylPREDNISolone NA SUCC 40 MG/1 ML VIAL IVPUSH SCH ×4 (02:30→21:14)
[2020-05-13] MEDS: INSULIN SLIDING SCALE (NOVOLOG) 1 VIAL SQ SCH ×2 (06:55→16:13)
[2020-05-13] MEDS: PANTOPRAZOLE 40 MG TABLET PO SCH (06:56)
[2020-05-13] MEDS: LEVOTHYROXINE NA 25 MCG TABLET (FP) PO SCH (06:56)
[2020-05-13] MEDS: APIXABAN 2.5 MG TABLET PO SCH ×2 (09:01→21:13)
[2020-05-13] MEDS: levETIRAcetam 250 MG TABLET PO SCH ×2 (09:01→21:14)
[2020-05-13] MEDS: HYDROCHLOROTHIAZIDE 25 MG TABLET (FP) PO SCH (09:01)
[2020-05-13] MEDS: LOSARTAN POTASSIUM 50 MG TABLET (FP) PO SCH (09:01)
[2020-05-13] MEDS: BUDESONIDE/FORMETEROL FUMARATE 160/4.5 mcg INHALER IH SCH ×2 (09:02→21:14)
[2020-05-13] MEDS: ALBUTEROL SO4 HFA INHALER IH PRN ×2 (09:02→13:00)
--- NOTE | 2020-05-13 10:35 | PN ---
Progress Note, Physician History of Present Illness: patient seen and examined today comfortable no distress All f/u noted - Current Medication List Current Medications: Active Medications Albuterol Sulfate (Ventolin 0.083% Nebulizer Soln -) 1 amp NEB Q4H PRN PRN Reason: SHORT OF BREATH/WHEEZING Last Admin: 05/11/20 08:23 Dose: 1 amp Documented by: Albuterol Sulfate (Ventolin Hfa Inhaler -) 2 puff IH Q4H PRN PRN Reason: SHORT OF BREATH/WHEEZING Last Admin: 05/13/20 09:02 Dose: 2 puff Documented by: Apixaban (Eliquis -) 2.5 mg PO BID [facility] Last Admin: 05/13/20 09:01 Dose: 2.5 mg Documented by: Atorvastatin Calcium (Lipitor -) 20 mg PO [facility] Last Admin: 05/12/20 22:01 Dose: 20 mg Documented by: Budesonide/Formoterol Fumarate (Symbicort 160/4.5mcg -) 1 puff IH BID [facility] Last Admin: 05/13/20 09:02 Dose: 1 puff Documented by: Hydrochlorothiazide (Hctz -) 25 mg PO DAILY [facility] Last Admin: 05/13/20 09:01 Dose: 25 mg Documented by: Insulin Aspart (Novolog [facility] Sliding [facility] -) [facility] Last Admin: 05/13/20 06:55 Dose: 3 units Documented by: Levetiracetam (Keppra -) 750 mg PO BID [facility] Last Admin: 05/13/20 09:01 Dose: 750 mg Documented by: Levothyroxine Sodium (Synthroid -) 25 mcg PO ACBK [facility] Last Admin: 05/13/20 06:56 Dose: 25 mcg Documented by: Losartan Potassium (Cozaar -) 100 mg PO DAILY [facility] Last Admin: 05/13/20 09:01 Dose: 100 mg Documented by: Meclizine HCl (Antivert -) 25 mg PO BID PRN PRN Reason: dizziness Methylprednisolone Sodium Succinate (Solu-Medrol -) 40 mg IVPUSH Q6H-IV [facility] Last Admin: 05/13/20 09:01 Dose: 40 mg Documented by: Montelukast Sodium (Singulair -) 10 mg PO [facility] Last Admin: 05/12/20 22:01 Dose: 10 mg Documented by: Pantoprazole Sodium (Protonix -) 40 mg PO ACBK [facility] Last Admin: 05/13/20 06:56 Dose: 40 mg Documented by: - Objective Vital Signs: Vital Signs Temperature 97.8 F 05/13/20 09:00 Pulse Rate 80 05/13/20 09:00 Respiratory Rate 105 H 05/13/20 09:00 Blood Pressure 143/71 05/13/20 09:00 O2 Sat by Pulse Oximetry (%) 97 05/13/20 02:12 Constitutional: Yes: No Distress, Calm Eyes: Yes: Conjunctiva Clear Neck: Yes: Supple Cardiovascular: Yes: Regular Rate and Rhythm Respiratory: Yes: Rhonchi Gastrointestinal: Yes: Soft Edema: No Neurological: Yes: Alert Psychiatric: Yes: Alert Labs: CBC, BMP 05/12/20 06:36 05/12/20 12:36 Problem List - Problems (1) Chest pain Code(s): R07.9 - CHEST PAIN, UNSPECIFIED Qualifiers: Chest pain type: unspecified Qualified Code(s): R07.9 - Chest pain, unspecified (2) Anxiety Code(s): F41.9 - ANXIETY DISORDER, UNSPECIFIED (3) Asthma exacerbation Code(s): J45.901 - UNSPECIFIED ASTHMA WITH (ACUTE) EXACERBATION Qualifiers: Asthma severity: unspecified severity Asthma persistence: unspecified Qualified Code(s): J45.901 - Unspecified asthma with (acute) exacerbation (4) Elevated WBC count Code(s): D72.829 - ELEVATED WHITE BLOOD CELL COUNT, UNSPECIFIED (5) Paroxysmal A-fib Code(s): I48.0 - PAROXYSMAL ATRIAL FIBRILLATION Assessment/Plan Continue present care Steroids out of bed to chair GI prophylaxis steroids Nebulizer treatment-- Once covid is -ve Pulmonary following Will follow D/W Rn also
--- NOTE | 2020-05-13 12:17 | PN ---
Progress Note (short form) - Note Progress Note: Chief Complaint: cp History of Present Illness: no more CP, today c/p cough and wheezing, no dizzy le edema no syncope - Current Medications Generic Name Dose Route Start Last Admin Trade Name Freq PRN Reason Stop Dose Admin Albuterol Sulfate 1 amp 05/11/20 06:23 05/11/20 08:23 Ventolin 0.083% Nebulizer Soln - NEB 1 amp Q4H PRN Administration SHORT OF BREATH/WHEEZING Albuterol Sulfate 2 puff 05/12/20 18:54 05/13/20 09:02 Ventolin Hfa Inhaler - IH 2 puff Q4H PRN Administration SHORT OF BREATH/WHEEZING Apixaban 2.5 mg 05/11/20 10:00 05/13/20 09:01 Eliquis - PO 2.5 mg BID LUIZA Administration Atorvastatin Calcium 20 mg 05/11/20 22:00 05/12/20 22:01 Lipitor - PO 20 mg HS LUIZA Administration Budesonide/Formoterol Fumarate 1 puff 05/11/20 10:00 05/13/20 09:02 Symbicort 160/4.5mcg - IH 1 puff BID LUIZA Administration Hydrochlorothiazide 25 mg 05/11/20 10:00 05/13/20 09:01 Hctz - PO 25 mg DAILY LUIZA Administration Insulin Aspart 1 vial 05/12/20 16:30 05/13/20 06:55 Novolog Vial Sliding Scale - SQ 3 units BIDAC LUIZA Administration Protocol Levetiracetam 750 mg 05/11/20 10:00 05/13/20 09:01 Keppra - PO 750 mg BID LUIZA Administration Levothyroxine Sodium 25 mcg 05/11/20 07:00 05/13/20 06:56 Synthroid - PO 25 mcg ACBK LUIZA Administration Losartan Potassium 100 mg 05/11/20 10:00 05/13/20 09:01 Cozaar - PO 100 mg DAILY LUIZA Administration Meclizine HCl 25 mg 05/11/20 06:18 Antivert - PO BID PRN dizziness Methylprednisolone Sodium Succinate 40 mg 05/11/20 15:00 05/13/20 09:01 Solu-Medrol - IVPUSH 40 mg Q6H-IV LUIZA Administration Montelukast Sodium 10 mg 05/11/20 22:00 05/12/20 22:01 Singulair - PO 10 mg HS LUIZA Administration Pantoprazole Sodium 40 mg 05/11/20 07:00 05/13/20 06:56 Protonix - PO 40 mg ACBK LUIZA Administration Vital Signs Period Temp Pulse Resp BP Sys/Sexton Pulse Ox Last 24 Hr 97.6 F-98.1 F 80-103 18-105 113-143/48-84 96-99 Constitutional: Yes: Well Nourished, No Distress, Calm Cardiovascular: Yes: Regular Rate and Rhythm, S1, S2. No: Gallop, Murmur Respiratory: Yes: Regular, CTA Bilaterally. No: Accessory Muscle Use Extremities: No: Cold Edema: No Neurological: Yes: Alert, Oriented. No: Seizure Labs: CBC, BMP 05/12/20 06:36 05/12/20 12:36 Assessment/Plan ECG: NSR with PVC, APC. no ST-T abn, no q waves CXR: clear lungs tele: SR chest pain: -chronic sx, sees outside cardio (Dr. Marcial, [facility]). sx's going on for long time, had stress test approx 2 mo ago per dtr, they were told it was fine (results not currently available). -history equivocal for whether or not was truly nitro-responsive. -on exam, she is very tender over the area, but not quite reproduces sx's. -trop x 2 neg, ecg non-ischemic. -suspect mskel > anginal etiology, but clinical picture uncertain. -given recent stress test normal, repeat stress testing is not indicated here. reasonable to image coronaries with CCTA as outpatient. 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 -clinically stable, no concerning sx's for ongoing cardiac ischemia. cardiac malcolm pt ok for discharge, should call Dr. Marcial to arrange CCTA. Afib: -sinus here -not on AVN blockers at home--no change -cont home Eliquis 2.5 bid (indicated dose is 5mg based on her wt/creatinine, however she is following with outside cardio hence will not change plan) HTN -bp controlled -cont losartan, HCTZ home regimen h/o TIA -on AC, statin at home--continue same h/o DVTs -AC per outside MDs' plan
--- NOTE | 2020-05-13 12:22 | PN ---
Progress Note (short form) - Note Progress Note: PULMONARY AWAKE/ALERT NO LONGER COMPLAINING OF CHEST PAIN HAS LEFT ARM WEAKNESS WHICH SHE STATES HAS BEEN PRESENT FOR THREE WEEKS VSS/AFEBRILE Constitutional: Yes: No Distress, Anxious, Obese HENT: Yes: Atraumatic, Normocephalic Neck: Yes: Supple, Trachea Midline Cardiovascular: Yes: Regular Rate and Rhythm. No: Varicosities Respiratory: Yes: Cough, Diminished, Rhonchi, SOB, SOB on Exertion. No: Rales, Stridor, Tachypnea, Wheezes ...Inspection: Yes: WNL ...Clubbing: No Gastrointestinal: Yes: Normal Bowel Sounds, Soft, Abdomen, Obese Renal/: Yes: WNL Musculoskeletal: Yes: WNL Extremities: Yes: WNL Edema: No Peripheral Pulses WNL: Yes Integumentary: Yes: WNL Neurological: Yes: WNL, Alert, Oriented ...Motor Strength: WNL Psychiatric: Yes: WNL, Alert, Oriented Chest X-ray: Report Reviewed, Image Reviewed Cat Scan: Report Reviewed, Image Reviewed Labs reviewed Problem List - Problems (1) Chest pain Code(s): R07.9 - CHEST PAIN, UNSPECIFIED Qualifiers: Chest pain type: unspecified Qualified Code(s): R07.9 - Chest pain, unspecified (2) Acute bronchitis Code(s): J20.9 - ACUTE BRONCHITIS, UNSPECIFIED Qualifiers: Bronchitis organism: unspecified organism Qualified Code(s): J20.9 - Acute bronchitis, unspecified (3) Acute exacerbation of mild persistent extrinsic asthma Code(s): J45.31 - MILD PERSISTENT ASTHMA WITH (ACUTE) EXACERBATION (4) Anxiety Code(s): F41.9 - ANXIETY DISORDER, UNSPECIFIED (5) Atypical chest pain Code(s): R07.89 - OTHER CHEST PAIN (6) Cough Code(s): R05 - COUGH (7) Hypertension Code(s): I10 - ESSENTIAL (PRIMARY) HYPERTENSION (8) Hypothyroid Code(s): E03.9 - HYPOTHYROIDISM, UNSPECIFIED (9) Paroxysmal A-fib Code(s): I48.0 - PAROXYSMAL ATRIAL FIBRILLATION (10) Hyperlipemia Code(s): E78.5 - HYPERLIPIDEMIA, UNSPECIFIED Qualifiers: Hyperlipidemia type: pure hypercholesterolemia Qualified Code(s): E78.00 - Pure hypercholesterolemia, unspecified (11) Hypertension Code(s): I10 - ESSENTIAL (PRIMARY) HYPERTENSION Qualifiers: Hypertension type: essential hypertension Qualified Code(s): I10 - Essential (primary) hypertension (12) Hypothyroidism Code(s): E03.9 - HYPOTHYROIDISM, UNSPECIFIED Qualifiers: Hypothyroidism type: unspecified Qualified Code(s): E03.9 - Hypothyroidism, unspecified (13) Moderate aortic stenosis Code(s): I35.0 - NONRHEUMATIC AORTIC (VALVE) STENOSIS (14) Seizure disorder Code(s): G40.909 - EPILEPSY, UNSP, NOT INTRACTABLE, WITHOUT STATUS EPILEPTICUS (15) Type 2 diabetes mellitus Code(s): E11.9 - TYPE 2 DIABETES MELLITUS WITHOUT COMPLICATIONS Qualifiers: Diabetes mellitus senior living insulin use: without terminal make up operator use Diabetes mellitus complication status: without complication Qualified Code(s): E11.9 - Type 2 diabetes mellitus without complications (16) Chest pain Code(s): R07.9 - CHEST PAIN, UNSPECIFIED Qualifiers: Chest pain type: unspecified Qualified Code(s): R07.9 - Chest pain, unspecified (17) Dyspnea and respiratory abnormalities Code(s): R06.00 - DYSPNEA, UNSPECIFIED; R06.89 - OTHER ABNORMALITIES OF BREATHING (18) Shortness of breath Code(s): R06.02 - SHORTNESS OF BREATH Short coarse of Medrol begun Symbicort BID BD TX PRN Monitor off ABX Cardiology noted. Covid -19 pending Will follow. Tammy CONNOR MD
[2020-05-13] MEDS: guaiFENesin 200 MG/10 ML 10 ML UNIT-DOSE CUPS PO PRN ×2 (13:49→21:13)
[2020-05-13] MEDS: ATORVASTATIN CA 20 MG TABLET (FP) PO SCH (21:13)
[2020-05-13] MEDS: MONTELUKAST NA 10 MG TABLET PO SCH (21:13)
[2020-05-13] MEDS: ACETAMINOPHEN 325 MG TABLET (FP) PO PRN (21:14)
[2020-05-14] MEDS: methylPREDNISolone NA SUCC 40 MG/1 ML VIAL IVPUSH SCH ×4 (02:40→23:01)
[2020-05-14] MEDS: LEVOTHYROXINE NA 25 MCG TABLET (FP) PO SCH (06:28)
[2020-05-14] MEDS: INSULIN SLIDING SCALE (NOVOLOG) 1 VIAL SQ SCH ×2 (06:28→17:07)
[2020-05-14] MEDS: PANTOPRAZOLE 40 MG TABLET PO SCH (06:28)
[2020-05-14] MEDS: HYDROCHLOROTHIAZIDE 25 MG TABLET (FP) PO SCH (09:16)
[2020-05-14] MEDS: APIXABAN 2.5 MG TABLET PO SCH ×2 (09:16→23:02)
[2020-05-14] MEDS: LOSARTAN POTASSIUM 50 MG TABLET (FP) PO SCH (09:16)
[2020-05-14] MEDS: levETIRAcetam 250 MG TABLET PO SCH ×2 (09:17→23:02)
[2020-05-14] MEDS: guaiFENesin 200 MG/10 ML 10 ML UNIT-DOSE CUPS PO PRN ×2 (09:21→23:01)
[2020-05-14] MEDS: BUDESONIDE/FORMETEROL FUMARATE 160/4.5 mcg INHALER IH SCH ×2 (09:26→23:04)
--- NOTE | 2020-05-14 12:50 | PN ---
Progress Note, Physician History of Present Illness: pulmonary alert,comfortable,-resp distress,-cp. covid negative - Current Medication List Current Medications: Active Medications Acetaminophen (Tylenol -) 650 mg PO Q6H PRN PRN Reason: PAIN LEVEL 6-10 Last Admin: 05/13/20 21:14 Dose: 650 mg Documented by: Albuterol Sulfate (Ventolin 0.083% Nebulizer Soln -) 1 amp NEB Q4H PRN PRN Reason: SHORT OF BREATH/WHEEZING Last Admin: 05/11/20 08:23 Dose: 1 amp Documented by: Albuterol Sulfate (Ventolin Hfa Inhaler -) 2 puff IH Q4H PRN PRN Reason: SHORT OF BREATH/WHEEZING Last Admin: 05/13/20 13:00 Dose: 2 puff Documented by: Apixaban (Eliquis -) 2.5 mg PO BID [facility] Last Admin: 05/14/20 09:16 Dose: 2.5 mg Documented by: Atorvastatin Calcium (Lipitor -) 20 mg PO HS [facility] Last Admin: 05/13/20 21:13 Dose: 20 mg Documented by: Budesonide/Formoterol Fumarate (Symbicort 160/4.5mcg -) 1 puff IH BID [facility] Last Admin: 05/14/20 09:26 Dose: 1 puff Documented by: Guaifenesin (Robitussin -) 10 ml PO Q6H PRN PRN Reason: CONGESTION Last Admin: 05/14/20 09:21 Dose: 10 ml Documented by: Hydrochlorothiazide (Hctz -) 25 mg PO DAILY [facility] Last Admin: 05/14/20 09:16 Dose: 25 mg Documented by: Insulin Aspart (Novolog Vial Sliding Scale -) 1 vial SQ BIDAC [facility]; Protocol Last Admin: 05/14/20 06:28 Dose: 5 units Documented by: Levetiracetam (Keppra -) 750 mg PO BID [facility] Last Admin: 05/14/20 09:17 Dose: 750 mg Documented by: Levothyroxine Sodium (Synthroid -) 25 mcg PO ACBK [facility] Last Admin: 05/14/20 06:28 Dose: 25 mcg Documented by: Losartan Potassium (Cozaar -) 100 mg PO DAILY [facility] Last Admin: 05/14/20 09:16 Dose: 100 mg Documented by: Meclizine HCl (Antivert -) 25 mg PO BID PRN PRN Reason: dizziness Methylprednisolone Sodium Succinate (Solu-Medrol -) 40 mg IVPUSH Q6H-IV [facility] Last Admin: 05/14/20 09:16 Dose: 40 mg Documented by: Montelukast Sodium (Singulair -) 10 mg PO HS [facility] Last Admin: 05/13/20 21:13 Dose: 10 mg Documented by: Pantoprazole Sodium (Protonix -) 40 mg PO ACBK [facility] Last Admin: 05/14/20 06:28 Dose: 40 mg Documented by: - Objective Vital Signs: Vital Signs Temperature 98.3 F 05/14/20 10:00 Pulse Rate 81 05/14/20 10:00 Respiratory Rate 24 H 05/14/20 10:00 Blood Pressure 109/64 05/14/20 10:00 O2 Sat by Pulse Oximetry (%) 99 05/14/20 10:00 Constitutional: Yes: Well Nourished, Calm Eyes: Yes: WNL HENT: Yes: WNL Neck: Yes: WNL Cardiovascular: Yes: Regular Rate and Rhythm, S1, S2 Respiratory: Yes: Diminished (few rhonchi), Rhonchi Gastrointestinal: Yes: Normal Bowel Sounds, Soft Extremities: Yes: WNL Edema: No Labs: CBC, BMP 05/12/20 06:36 Assessment/Plan Problem List - Problems (1) Chest pain Code(s): R07.9 - CHEST PAIN, UNSPECIFIED Qualifiers: Chest pain type: unspecified Qualified Code(s): R07.9 - Chest pain, unspecified (2) Acute bronchitis Code(s): J20.9 - ACUTE BRONCHITIS, UNSPECIFIED Qualifiers: Bronchitis organism: unspecified organism Qualified Code(s): J20.9 - Acute bronchitis, unspecified (3) Acute exacerbation of mild persistent extrinsic asthma Code(s): J45.31 - MILD PERSISTENT ASTHMA WITH (ACUTE) EXACERBATION (4) Anxiety Code(s): F41.9 - ANXIETY DISORDER, UNSPECIFIED (5) Atypical chest pain Code(s): R07.89 - OTHER CHEST PAIN (6) Cough Code(s): R05 - COUGH (7) Hypertension Code(s): I10 - ESSENTIAL (PRIMARY) HYPERTENSION (8) Hypothyroid Code(s): E03.9 - HYPOTHYROIDISM, UNSPECIFIED (9) Paroxysmal A-fib Code(s): I48.0 - PAROXYSMAL ATRIAL FIBRILLATION (10) Hyperlipemia Code(s): E78.5 - HYPERLIPIDEMIA, UNSPECIFIED Qualifiers: Hyperlipidemia type: pure hypercholesterolemia Qualified Code(s): E78.00 - Pure hypercholesterolemia, unspecified (11) Hypertension Code(s): I10 - ESSENTIAL (PRIMARY) HYPERTENSION Qualifiers: Hypertension type: essential hypertension Qualified Code(s): I10 - E ssential (primary) hypertension (12) Hypothyroidism Code(s): E03.9 - HYPOTHYROIDISM, UNSPECIFIED Qualifiers: Hypothyroidism type: unspecified Qualified Code(s): E03.9 - Hypothyroidism, unspecified (13) Moderate aortic stenosis Code(s): I35.0 - NONRHEUMATIC AORTIC (VALVE) STENOSIS (14) Seizure disorder Code(s): G40.909 - EPILEPSY, UNSP, NOT INTRACTABLE, WITHOUT STATUS EPILEPTICUS (15) Type 2 diabetes mellitus Code(s): E11.9 - TYPE 2 DIABETES MELLITUS WITHOUT COMPLICATIONS Qualifiers: Diabetes mellitus 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 insulin use: without 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 use Diabetes mellitus complication status: without complication Qualified Code(s): E11.9 - Type 2 diabetes mellitus without complications (16) Chest pain Code(s): R07.9 - CHEST PAIN, UNSPECIFIED Qualifiers: Chest pain type: unspecified Qualified Code(s): R07.9 - Chest pain, unspecified (17) Dyspnea and respiratory abnormalities Code(s): R06.00 - DYSPNEA, UNSPECIFIED; R06.89 - OTHER ABNORMALITIES OF BREATHING (18) Shortness of breath Code(s): R06.02 - SHORTNESS OF BREATH Assessment/Plan Medrol Symbicort BID BD TX PRN No smoking Monitor off ABX DR FLORES
--- NOTE | 2020-05-14 13:12 | PN ---
Progress Note (short form) - Note Progress Note: cc: chest pain s: no chest pain, palps, dizziness, dyspnea Current Medications Generic Name Dose Route Start Last Admin Trade Name Freq PRN Reason Stop Dose Admin Acetaminophen 650 mg 05/13/20 20:18 05/13/20 21:14 Tylenol - PO 650 mg Q6H PRN Administration PAIN LEVEL 6-10 Albuterol Sulfate 1 amp 05/11/20 06:23 05/11/20 08:23 Ventolin 0.083% Nebulizer Soln - NEB 1 amp Q4H PRN Administration SHORT OF BREATH/WHEEZING Albuterol Sulfate 2 puff 05/12/20 18:54 05/13/20 13:00 Ventolin Hfa Inhaler - IH 2 puff Q4H PRN Administration SHORT OF BREATH/WHEEZING Apixaban 2.5 mg 05/11/20 10:00 05/14/20 09:16 Eliquis - PO 2.5 mg BID LUIZA Administration Atorvastatin Calcium 20 mg 05/11/20 22:00 05/13/20 21:13 Lipitor - PO 20 mg HS LUIZA Administration Budesonide/Formoterol Fumarate 1 puff 05/11/20 10:00 05/14/20 09:26 Symbicort 160/4.5mcg - IH 1 puff BID LUIZA Administration Guaifenesin 10 ml 05/13/20 13:25 05/14/20 09:21 Robitussin - PO 10 ml Q6H PRN Administration CONGESTION Hydrochlorothiazide 25 mg 05/11/20 10:00 05/14/20 09:16 Hctz - PO 25 mg DAILY LUIZA Administration Insulin Aspart 1 vial 05/12/20 16:30 05/14/20 06:28 Novolog Vial Sliding Scale - SQ 5 units BIDAC LUIZA Administration Protocol Levetiracetam 750 mg 05/11/20 10:00 05/14/20 09:17 Keppra - PO 750 mg BID LUIZA Administration Levothyroxine Sodium 25 mcg 05/11/20 07:00 05/14/20 06:28 Synthroid - PO 25 mcg ACBK LUIZA Administration Losartan Potassium 100 mg 05/11/20 10:00 05/14/20 09:16 Cozaar - PO 100 mg DAILY LUIZA Administration Meclizine HCl 25 mg 05/11/20 06:18 Antivert - PO BID PRN dizziness Methylprednisolone Sodium Succinate 40 mg 05/11/20 15:00 05/14/20 09:16 Solu-Medrol - IVPUSH 40 mg Q6H-IV LUIZA Administration Montelukast Sodium 10 mg 05/11/20 22:00 05/13/20 21:13 Singulair - PO 10 mg HS LUIZA Administration Pantoprazole Sodium 40 mg 05/11/20 07:00 05/14/20 06:28 Protonix - PO 40 mg ACBK LUIZA Administration Vital Signs Period Temp Pulse Resp BP Sys/Sexton Pulse Ox Last 24 Hr 97.9 F-98.6 F 81-101 20-24 109-132/60-81 91-100 Constitutional: Yes: Well Nourished, No Distress, Calm Cardiovascular: Yes: Regular Rate and Rhythm, S1, S2. No: Gallop, Murmur Respiratory: Yes: Regular, CTA Bilaterally. No: Accessory Muscle Use Extremities: No: Cold Edema: No Neurological: Yes: Alert, Oriented. No: Seizure no jaundice, diaphoresis not agitated Assessment/Plan ECG: NSR with PVC, APC. no ST-T abn, no q waves CXR: clear lungs tele: SR chest pain: -chronic sx, sees outside cardio (Dr. Marcial, [facility]). sx's going on for long time, had stress test approx 2 mo ago per dtr, they were told it was fine (results not currently available). -history equivocal for whether or not was truly nitro-responsive. -on exam, she is very tender over the area, but not quite reproduces sx's. -trop x 2 neg, ecg non-ischemic. -suspect mskel > anginal etiology, but clinical picture uncertain. -given recent stress test normal, repeat stress testing is not indicated here. reasonable to image coronaries with CCTA as outpatient. per Dr. Malik: d/w'd Dr. 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 -clinically stable, no concerning sx's for ongoing cardiac ischemia - cardiac malcolm pt ok for discharge, should call Dr. Marcial to arrange CCTA. Afib: -sinus here -not on AVN blockers at home--no change -cont home Eliquis 2.5 bid (indicated dose is 5mg based on her wt/creatinine, however she is following with outside cardio hence will not change plan) HTN -bp controlled -cont losartan, HCTZ home regimen h/o TIA -on AC, statin at home--continue same h/o DVTs -AC per outside MDs' plan
--- NOTE | 2020-05-14 13:18 | PN ---
Progress Note (short form) - Note Progress Note: SOB Coughing+ productive Vital Signs - 24 hr 05/13/20 05/13/20 05/13/20 14:00 16:55 18:20 Temperature 98.3 F 98.6 F Pulse Rate 101 H 93 H Respiratory 20 20 Rate Blood Pressure 132/81 129/60 O2 Sat by Pulse 91 L 96 100 Oximetry (%) 05/13/20 05/14/20 05/14/20 22:00 02:00 06:00 Temperature 97.9 F 98.0 F Pulse Rate 92 H 82 Respiratory 20 20 Rate Blood Pressure 117/60 122/62 O2 Sat by Pulse 99 99 99 Oximetry (%) 05/14/20 10:00 Temperature 98.3 F Pulse Rate 81 Respiratory 24 H Rate Blood Pressure 109/64 O2 Sat by Pulse 99 Oximetry (%) Current Medications Generic Name Dose Route Start Last Admin Trade Name Freq PRN Reason Stop Dose Admin Acetaminophen 650 mg 05/13/20 20:18 05/13/20 21:14 Tylenol - PO 650 mg Q6H PRN Administration PAIN LEVEL 6-10 Albuterol Sulfate 1 amp 05/11/20 06:23 05/11/20 08:23 Ventolin 0.083% Nebulizer Soln - NEB 1 amp Q4H PRN Administration SHORT OF BREATH/WHEEZING Albuterol Sulfate 2 puff 05/12/20 18:54 05/13/20 13:00 Ventolin Hfa Inhaler - IH 2 puff Q4H PRN Administration SHORT OF BREATH/WHEEZING Apixaban 2.5 mg 05/11/20 10:00 05/14/20 09:16 Eliquis - PO 2.5 mg BID LUIZA Administration Atorvastatin Calcium 20 mg 05/11/20 22:00 05/13/20 21:13 Lipitor - PO 20 mg HS LUIZA Administration Budesonide/Formoterol Fumarate 1 puff 05/11/20 10:00 05/14/20 09:26 Symbicort 160/4.5mcg - IH 1 puff BID LUIZA Administration Guaifenesin 10 ml 05/13/20 13:25 05/14/20 09:21 Robitussin - PO 10 ml Q6H PRN Administration CONGESTION Hydrochlorothiazide 25 mg 05/11/20 10:00 05/14/20 09:16 Hctz - PO 25 mg DAILY LUIZA Administration Insulin Aspart 1 vial 05/12/20 16:30 05/14/20 06:28 Novolog Vial Sliding Scale - SQ 5 units BIDAC LUIZA Administration Protocol Levetiracetam 750 mg 05/11/20 10:00 05/14/20 09:17 Keppra - PO 750 mg BID LUIZA Administration Levothyroxine Sodium 25 mcg 05/11/20 07:00 05/14/20 06:28 Synthroid - PO 25 mcg ACBK LUIZA Administration Losartan Potassium 100 mg 05/11/20 10:00 05/14/20 09:16 Cozaar - PO 100 mg DAILY LUIZA Administration Meclizine HCl 25 mg 05/11/20 06:18 Antivert - PO BID PRN dizziness Methylprednisolone Sodium Succinate 40 mg 05/11/20 15:00 05/14/20 09:16 Solu-Medrol - IVPUSH 40 mg Q6H-IV LUIZA Administration Montelukast Sodium 10 mg 05/11/20 22:00 05/13/20 21:13 Singulair - PO 10 mg HS LUIZA Administration Pantoprazole Sodium 40 mg 05/11/20 07:00 05/14/20 06:28 Protonix - PO 40 mg ACBK LUIZA Administration Laboratory Results - last 24 hr 05/11/20 05/13/20 05/13/20 02:40 14:16 16:12 POC Glucometer 312 Hemoglobin A1c % TSH COVID-19 ([facility]) Cancelled Not detected 05/14/20 05/14/20 05/14/20 06:05 06:05 06:24 POC Glucometer 295 Hemoglobin A1c % 7.6 H TSH 0.07 L COVID-19 ([facility]) S1 S2 RRR Lungs scattered wheeze Abd- soft, obese, NT No edema PLAN pt pulled out her IV - will change to Prednisone, clinically better nebs O2 continue with meds Problem List - Problems (1) SOB (shortness of breath) Code(s): R06.02 - SHORTNESS OF BREATH (2) Acute bronchitis Code(s): J20.9 - ACUTE BRONCHITIS, UNSPECIFIED Qualifiers: Bronchitis organism: unspecified organism Qualified Code(s): J20.9 - Acute bronchitis, unspecified (3) Acute exacerbation of mild persistent extrinsic asthma Code(s): J45.31 - MILD PERSISTENT ASTHMA WITH (ACUTE) EXACERBATION (4) Anxiety Code(s): F41.9 - ANXIETY DISORDER, UNSPECIFIED (5) Atypical chest pain Code(s): R07.89 - OTHER CHEST PAIN
[2020-05-14] MEDS: ALBUTEROL SO4 0.083% IH SOL 2.5 MG/3 ML VIAL.NEB. NEB SCH ×2 (14:55→20:50)
[2020-05-14] MEDS ORDERED: ALBUTEROL SO4 HFA INHALER IH PRN (20:29)
[2020-05-14] MEDS: MECLIZINE HCL 25 MG TABLET (FP) PO PRN (23:01)
[2020-05-14] MEDS: ATORVASTATIN CA 20 MG TABLET (FP) PO SCH (23:02)
[2020-05-14] MEDS: MONTELUKAST NA 10 MG TABLET PO SCH (23:02)
[2020-05-15] MEDS: ALBUTEROL SO4 0.083% IH SOL 2.5 MG/3 ML VIAL.NEB. NEB SCH ×4 (00:39→20:57)
[2020-05-15] MEDS: methylPREDNISolone NA SUCC 40 MG/1 ML VIAL IVPUSH SCH ×2 (03:25→10:28)
[2020-05-15] MEDS: INSULIN SLIDING SCALE (NOVOLOG) 1 VIAL SQ SCH ×2 (06:27→17:16)
[2020-05-15] MEDS: PANTOPRAZOLE 40 MG TABLET PO SCH (06:28)
[2020-05-15] MEDS: LEVOTHYROXINE NA 25 MCG TABLET (FP) PO SCH (06:30)
[2020-05-15] MEDS: BUDESONIDE/FORMETEROL FUMARATE 160/4.5 mcg INHALER IH SCH ×2 (10:28→22:15)
[2020-05-15] MEDS: LOSARTAN POTASSIUM 50 MG TABLET (FP) PO SCH (10:28)
[2020-05-15] MEDS: HYDROCHLOROTHIAZIDE 25 MG TABLET (FP) PO SCH (10:28)
[2020-05-15] MEDS: APIXABAN 2.5 MG TABLET PO SCH ×2 (10:28→22:15)
[2020-05-15] MEDS: levETIRAcetam 250 MG TABLET PO SCH ×2 (10:28→22:15)
--- NOTE | 2020-05-15 10:45 | PN ---
Progress Note, Physician History of Present Illness: PULMONARY ALERT,LESS DYSPNEIC,LESS CONGESTED, - Current Medication List Current Medications: Active Medications Acetaminophen (Tylenol -) 650 mg PO Q6H PRN PRN Reason: PAIN LEVEL 6-10 Last Admin: 05/13/20 21:14 Dose: 650 mg Documented by: Albuterol Sulfate (Ventolin 0.083% Nebulizer Soln -) 1 amp NEB RQ4H [facility] Last Admin: 05/15/20 04:12 Dose: 1 amp Documented by: Albuterol Sulfate (Ventolin Hfa Inhaler -) 2 puff IH Q4H PRN PRN Reason: SHORT OF BREATH/WHEEZING Apixaban (Eliquis -) 2.5 mg PO BID [facility] Last Admin: 05/15/20 10:28 Dose: 2.5 mg Documented by: Atorvastatin Calcium (Lipitor -) 20 mg PO HS [facility] Last Admin: 05/14/20 23:02 Dose: 20 mg Documented by: Budesonide/Formoterol Fumarate (Symbicort 160/4.5mcg -) 1 puff IH BID [facility] Last Admin: 05/15/20 10:28 Dose: 1 puff Documented by: Guaifenesin (Robitussin -) 10 ml PO Q6H PRN PRN Reason: CONGESTION Last Admin: 05/14/20 23:01 Dose: 10 ml Documented by: Hydrochlorothiazide (Hctz -) 25 mg PO DAILY [facility] Last Admin: 05/15/20 10:28 Dose: 25 mg Documented by: Insulin Aspart (Novolog Vial Sliding Scale -) 1 vial SQ BIDAC [facility]; Protocol Last Admin: 05/15/20 06:27 Dose: 5 units Documented by: Levetiracetam (Keppra -) 750 mg PO BID [facility] Last Admin: 05/15/20 10:28 Dose: 750 mg Documented by: Levothyroxine Sodium (Synthroid -) 25 mcg PO ACBK [facility] Last Admin: 05/15/20 06:30 Dose: 25 mcg Documented by: Losartan Potassium (Cozaar -) 100 mg PO DAILY [facility] Last Admin: 05/15/20 10:28 Dose: 100 mg Documented by: Meclizine HCl (Antivert -) 25 mg PO BID PRN PRN Reason: dizziness Last Admin: 05/14/20 23:01 Dose: 25 mg Documented by: Methylprednisolone Sodium Succinate (Solu-Medrol -) 40 mg IVPUSH Q6H-IV [facility] Last Admin: 05/15/20 10:28 Dose: 40 mg Documented by: Montelukast Sodium (Singulair -) 10 mg PO HS [facility] Last Admin: 05/14/20 23:02 Dose: 10 mg Documented by: Pantoprazole Sodium (Protonix -) 40 mg PO ACBK [facility] Last Admin: 05/15/20 06:28 Dose: 40 mg Documented by: - Objective Vital Signs: Vital Signs Temperature 97.7 F 05/14/20 21:30 Pulse Rate 98 H 05/14/20 21:30 Respiratory Rate 24 H 05/14/20 21:30 Blood Pressure 135/67 05/14/20 21:30 O2 Sat by Pulse Oximetry (%) 98 05/14/20 21:30 Constitutional: Yes: Well Nourished, Calm Eyes: Yes: WNL HENT: Yes: WNL Neck: Yes: WNL Cardiovascular: Yes: Regular Rate and Rhythm, S1, S2 Respiratory: Yes: Rhonchi (SCATTERED RHONCHI), Wheezes (FEW SCATTERED WHEEZES AND RHONCHI) Gastrointestinal: Yes: Normal Bowel Sounds, Soft Extremities: Yes: WNL Edema: No Labs: Assessment/Plan Problem List - Problems (1) Chest pain Code(s): R07.9 - CHEST PAIN, UNSPECIFIED Qualifiers: Chest pain type: unspecified Qualified Code(s): R07.9 - Chest pain, unspecified (2) Acute bronchitis Code(s): J20.9 - ACUTE BRONCHITIS, UNSPECIFIED Qualifiers: Bronchitis organism: unspecified organism Qualified Code(s): J20.9 - Acute bronchitis, unspecified (3) Acute exacerbation of mild persistent extrinsic asthma Code(s): J45.31 - MILD PERSISTENT ASTHMA WITH (ACUTE) EXACERBATION (4) Anxiety Code(s): F41.9 - ANXIETY DISORDER, UNSPECIFIED (5) Atypical chest pain Code(s): R07.89 - OTHER CHEST PAIN (6) Cough Code(s): R05 - COUGH (7) Hypertension Code(s): I10 - ESSENTIAL (PRIMARY) HYPERTENSION (8) Hypothyroid Code(s): E03.9 - HYPOTHYROIDISM, UNSPECIFIED (9) Paroxysmal A-fib Code(s): I48.0 - PAROXYSMAL ATRIAL FIBRILLATION (10) Hyperlipemia Code(s): E78.5 - HYPERLIPIDEMIA, UNSPECIFIED Qualifiers: Hyperlipidemia type: pure hypercholesterolemia Qualified Code(s): E78.00 - Pure hypercholesterolemia, unspecified (11) Hypertension Code(s): I10 - ESSENTIAL (PRIMARY) HYPERTENSION Qualifiers: Hypertension type: essential hypertension Qualified Code(s): I10 - Essential (primary) hypertension (12) Hypothyroidism Code(s): E03.9 - HYPOTHYROIDISM, UNSPECIFIED Qualifiers: Hypothyroidism type: unspecified Qualified Code(s): E03.9 - Hypothyroidism, unspecified (13) Moderate aortic stenosis Code(s): I35.0 - NONRHEUMATIC AORTIC (VALVE) STENOSIS (14) Seizure disorder Code(s): G40.909 - EPILEPSY, UNSP, NOT INTRACTABLE, WITHOUT STATUS EPILEPTICUS (15) Type 2 diabetes mellitus Code(s): E11.9 - TYPE 2 DIABETES MELLITUS WITHOUT COMPLICATIONS Qualifiers: Diabetes mellitus chcf insulin use: without intermediate card tender use Diabetes mellitus complication status: without complication Qualified Code(s): E11.9 - Type 2 diabetes mellitus without complications (16) Chest pain Code(s): R07.9 - CHEST PAIN, UNSPECIFIED Qualifiers: Chest pain type: unspecified Qualified Code(s): R07.9 - Chest pain, unspecified (17) Dyspnea and respiratory abnormalities Code(s): R06.00 - DYSPNEA, UNSPECIFIED; R06.89 - OTHER ABNORMALITIES OF BREATHING (18) Shortness of breath Code(s): R06.02 - SHORTNESS OF BREATH Assessment/Plan Medrol q 8h Symbicort BID BD TX PRN No smoking Monitor off ABX DR FLORES
--- NOTE | 2020-05-15 12:11 | PN ---
Progress Note (short form) - Note Progress Note: SOB less coughing less productive Vital Signs - 24 hr 05/14/20 05/14/20 05/14/20 14:01 18:00 21:00 Temperature 98.6 F 98.4 F Pulse Rate 96 H 99 H Respiratory 22 H 24 H Rate Blood Pressure 103/65 143/63 O2 Sat by Pulse 99 98 98 Oximetry (%) 05/14/20 05/15/20 05/15/20 21:30 09:00 10:00 Temperature 97.7 F Pulse Rate 98 H 108 H Respiratory 24 H 22 H Rate Blood Pressure 135/67 113/65 O2 Sat by Pulse 98 100 100 Oximetry (%) Current Medications Generic Name Dose Route Start Last Admin Trade Name Freq PRN Reason Stop Dose Admin Acetaminophen 650 mg 05/13/20 20:18 05/13/20 21:14 Tylenol - PO 650 mg Q6H PRN Administration PAIN LEVEL 6-10 Albuterol Sulfate 1 amp 05/14/20 16:00 05/15/20 04:12 Ventolin 0.083% Nebulizer Soln - NEB 1 amp RQ4H [facility] Administration Albuterol Sulfate 2 puff 05/14/20 20:29 Ventolin Hfa Inhaler - IH Q4H PRN SHORT OF BREATH/WHEEZING Apixaban 2.5 mg 05/14/20 22:00 05/15/20 10:28 Eliquis - PO 2.5 mg BID [facility] Administration Atorvastatin Calcium 20 mg 05/14/20 22:00 05/14/20 23:02 Lipitor - PO 20 mg HS [facility] Administration Budesonide/Formoterol Fumarate 1 puff 05/14/20 22:00 05/15/20 10:28 Symbicort 160/4.5mcg - IH 1 puff BID [facility] Administration Guaifenesin 10 ml 05/14/20 20:29 05/14/20 23:01 Robitussin - PO 10 ml Q6H PRN Administration CONGESTION Hydrochlorothiazide 25 mg 05/15/20 10:00 05/15/20 10:28 Hctz - PO 25 mg DAILY [facility] Administration Insulin Aspart 1 vial 05/15/20 07:00 05/15/20 06:27 Novolog Vial Sliding Scale - SQ 5 units BIDAC [facility] Administration Protocol Levetiracetam 750 mg 05/14/20 22:00 05/15/20 10:28 Keppra - PO 750 mg BID [facility] Administration Levothyroxine Sodium 25 mcg 05/15/20 07:00 05/15/20 06:30 Synthroid - PO 25 mcg ACBK [facility] Administration Losartan Potassium 100 mg 05/15/20 10:00 05/15/20 10:28 Cozaar - PO 100 mg DAILY [facility] Administration Meclizine HCl 25 mg 05/14/20 20:29 05/14/20 23:01 Antivert - PO 25 mg BID PRN Administration dizziness Methylprednisolone Sodium Succinate 40 mg 05/14/20 21:00 05/15/20 10:28 Solu-Medrol - IVPUSH 40 mg Q6H-IV [facility] Administration Montelukast Sodium 10 mg 05/14/20 22:00 05/14/20 23:02 Singulair - PO 10 mg HS [facility] Administration Pantoprazole Sodium 40 mg 05/15/20 07:00 05/15/20 06:28 Protonix - PO 40 mg ACBK [facility] Administration Laboratory Results - last 24 hr 05/15/20 06:23 POC Glucometer 286 S1 S2 RRR Lungs occasional wheeze Abd- soft, obese, NT No edema PLAN was able to get solumedrol today AM and yesterday, she pulled out her iv line again pt pulled out her IV - will change to Prednisone, clinically better nebs O2 continue with meds COVID negative Problem List - Problems (1) SOB (shortness of breath) Code(s): R06.02 - SHORTNESS OF BREATH (2) Acute bronchitis Code(s): J20.9 - ACUTE BRONCHITIS, UNSPECIFIED Qualifiers: Bronchitis organism: unspecified organism Qualified Code(s): J20.9 - Acute bronchitis, unspecified (3) Acute exacerbation of mild persistent extrinsic asthma Code(s): J45.31 - MILD PERSISTENT ASTHMA WITH (ACUTE) EXACERBATION (4) Anxiety Code(s): F41.9 - ANXIETY DISORDER, UNSPECIFIED (5) Atypical chest pain Code(s): R07.89 - OTHER CHEST PAIN
[2020-05-15] MEDS ORDERED: predniSONE 20 MG TABLET (UD) PO SCH (12:15)
[2020-05-15] MEDS: predniSONE 20 MG TABLET (UD) PO SCH ×2 (14:11→22:14)
[2020-05-15] MEDS: MONTELUKAST NA 10 MG TABLET PO SCH (22:15)
[2020-05-15] MEDS: ATORVASTATIN CA 20 MG TABLET (FP) PO SCH (22:15)
[2020-05-15] MEDS: MECLIZINE HCL 25 MG TABLET (FP) PO PRN (22:15)
[2020-05-15] MEDS: guaiFENesin 200 MG/10 ML 10 ML UNIT-DOSE CUPS PO PRN (22:16)
[2020-05-16] MEDS: ALBUTEROL SO4 0.083% IH SOL 2.5 MG/3 ML VIAL.NEB. NEB SCH ×7 (00:13→20:27)
[2020-05-16] MEDS: INSULIN SLIDING SCALE (NOVOLOG) 1 VIAL SQ SCH ×2 (06:09→17:52)
[2020-05-16] MEDS: PANTOPRAZOLE 40 MG TABLET PO SCH (06:11)
[2020-05-16] MEDS: LEVOTHYROXINE NA 25 MCG TABLET (FP) PO SCH (06:11)
[2020-05-16] MEDS: predniSONE 20 MG TABLET (UD) PO SCH ×3 (06:11→21:45)
[2020-05-16] MEDS: levETIRAcetam 250 MG TABLET PO SCH ×2 (09:37→21:45)
[2020-05-16] MEDS: APIXABAN 2.5 MG TABLET PO SCH ×2 (09:38→21:45)
[2020-05-16] MEDS: BUDESONIDE/FORMETEROL FUMARATE 160/4.5 mcg INHALER IH SCH ×2 (09:38→22:00)
[2020-05-16] MEDS: LOSARTAN POTASSIUM 50 MG TABLET (FP) PO SCH (09:38)
[2020-05-16] MEDS: HYDROCHLOROTHIAZIDE 25 MG TABLET (FP) PO SCH (09:38)
--- NOTE | 2020-05-16 12:06 | PN ---
Progress Note (short form) - Note Progress Note: SOB less coughing less found to have Prednisone 20mg at her bed -- couple of tabs Vital Signs - 24 hr 05/15/20 05/15/20 05/15/20 14:36 19:14 21:00 Temperature 97.8 F 98.5 F Pulse Rate 99 H 90 Respiratory 20 20 20 Rate Blood Pressure 133/53 L 120/61 O2 Sat by Pulse 100 Oximetry (%) 05/15/20 05/16/20 05/16/20 22:00 05:00 09:00 Temperature 98.5 F 98.5 F Pulse Rate 99 H 93 H Respiratory 22 H 20 20 Rate Blood Pressure 142/67 143/70 O2 Sat by Pulse 99 98 98 Oximetry (%) 05/16/20 10:00 Temperature 98.7 F Pulse Rate 110 H Respiratory 22 H Rate Blood Pressure 129/92 O2 Sat by Pulse 98 Oximetry (%) Current Medications Generic Name Dose Route Start Last Admin Trade Name Freq PRN Reason Stop Dose Admin Acetaminophen 650 mg 05/13/20 20:18 05/13/20 21:14 Tylenol - PO 650 mg Q6H PRN Administration PAIN LEVEL 6-10 Albuterol Sulfate 1 amp 05/14/20 16:00 05/16/20 11:24 Ventolin 0.083% Nebulizer Soln - NEB 1 amp RQ4H [facility] Administration Albuterol Sulfate 2 puff 05/14/20 20:29 Ventolin Hfa Inhaler - IH Q4H PRN SHORT OF BREATH/WHEEZING Apixaban 2.5 mg 05/14/20 22:00 05/16/20 09:38 Eliquis - PO 2.5 mg BID [facility] Administration Atorvastatin Calcium 20 mg 05/14/20 22:00 05/15/20 22:15 Lipitor - PO 20 mg HS [facility] Administration Budesonide/Formoterol Fumarate 1 puff 05/14/20 22:00 05/16/20 09:38 Symbicort 160/4.5mcg - IH 1 puff BID [facility] Administration Guaifenesin 10 ml 05/14/20 20:29 05/15/20 22:16 Robitussin - PO 10 ml Q6H PRN Administration CONGESTION Hydrochlorothiazide 25 mg 05/15/20 10:00 05/16/20 09:38 Hctz - PO 25 mg DAILY [facility] Administration Insulin Aspart 1 vial 05/15/20 07:00 05/16/20 06:09 Novolog Vial Sliding Scale - SQ 5 units BIDAC [facility] Administration Protocol Levetiracetam 750 mg 05/14/20 22:00 05/16/20 09:37 Keppra - PO 750 mg BID [facility] Administration Levothyroxine Sodium 25 mcg 05/15/20 07:00 05/16/20 06:11 Synthroid - PO 25 mcg ACBK [facility] Administration Losartan Potassium 100 mg 05/15/20 10:00 05/16/20 09:38 Cozaar - PO 100 mg DAILY [facility] Administration Meclizine HCl 25 mg 05/14/20 20:29 05/15/20 22:15 Antivert - PO 25 mg BID PRN Administration dizziness Montelukast Sodium 10 mg 05/14/20 22:00 05/15/20 22:15 Singulair - PO 10 mg HS [facility] Administration Pantoprazole Sodium 40 mg 05/15/20 07:00 05/16/20 06:11 Protonix - PO 40 mg ACBK [facility] Administration Prednisone 40 mg 05/15/20 14:00 05/16/20 06:11 Deltasone - PO 40 mg TID [facility] Administration Laboratory Results - last 24 hr 05/15/20 05/15/20 05/16/20 11:55 16:53 06:04 POC Glucometer 349 275 Free T4 1.06 S1 S2 RRR Lungs end-expiratory wheezing Abd- soft, obese, NT No edema PLAN paranoid anxiety COPD -- spoke to RN to call security to search her belongings for more meds -- spoke with PMD- DR Abbott-- she has h./o psych disorder, paranoid-- never went to see Psych -- will consult Dr Tovar here -- continue with PO prednisone-- unable to give solumedrol as she is pulling out her iv lines --nebs O2 continue with meds COVID negative Problem List - Problems (1) SOB (shortness of breath) Code(s): R06.02 - SHORTNESS OF BREATH (2) Acute bronchitis Code(s): J20.9 - ACUTE BRONCHITIS, UNSPECIFIED Qualifiers: Bronchitis organism: unspecified organism Qualified Code(s): J20.9 - Acute bronchitis, unspecified (3) Acute exacerbation of mild persistent extrinsic asthma Code(s): J45.31 - MILD PERSISTENT ASTHMA WITH (ACUTE) EXACERBATION (4) Anxiety Code(s): F41.9 - ANXIETY DISORDER, UNSPECIFIED (5) Atypical chest pain Code(s): R07.89 - OTHER CHEST PAIN
--- NOTE | 2020-05-16 12:10 | PN ---
Progress Note (short form) - Note Progress Note: Chief Complaint: cp History of Present Illness: no cp sob palps dizzy - Current Medications Generic Name Dose Route Start Last Admin Trade Name Freq PRN Reason Stop Dose Admin Acetaminophen 650 mg 05/13/20 20:18 05/13/20 21:14 Tylenol - PO 650 mg Q6H PRN Administration PAIN LEVEL 6-10 Albuterol Sulfate 1 amp 05/14/20 16:00 05/16/20 11:24 Ventolin 0.083% Nebulizer Soln - NEB 1 amp RQ4H [facility] Administration Albuterol Sulfate 2 puff 05/14/20 20:29 Ventolin Hfa Inhaler - IH Q4H PRN SHORT OF BREATH/WHEEZING Apixaban 2.5 mg 05/14/20 22:00 05/16/20 09:38 Eliquis - PO 2.5 mg BID [facility] Administration Atorvastatin Calcium 20 mg 05/14/20 22:00 05/15/20 22:15 Lipitor - PO 20 mg HS [facility] Administration Budesonide/Formoterol Fumarate 1 puff 05/14/20 22:00 05/16/20 09:38 Symbicort 160/4.5mcg - IH 1 puff BID [facility] Administration Fluticasone Propionate 2 spray 05/16/20 12:15 Flonase - NS DAILY [facility] Guaifenesin 10 ml 05/14/20 20:29 05/15/20 22:16 Robitussin - PO 10 ml Q6H PRN Administration CONGESTION Hydrochlorothiazide 25 mg 05/15/20 10:00 05/16/20 09:38 Hctz - PO 25 mg DAILY [facility] Administration Insulin Aspart 1 vial 05/15/20 07:00 05/16/20 06:09 Novolog Vial Sliding Scale - SQ 5 units BIDAC [facility] Administration Protocol Levetiracetam 750 mg 05/14/20 22:00 05/16/20 09:37 Keppra - PO 750 mg BID [facility] Administration Levothyroxine Sodium 25 mcg 05/15/20 07:00 05/16/20 06:11 Synthroid - PO 25 mcg ACBK [facility] Administration Losartan Potassium 100 mg 05/15/20 10:00 05/16/20 09:38 Cozaar - PO 100 mg DAILY [facility] Administration Meclizine HCl 25 mg 05/14/20 20:29 05/15/20 22:15 Antivert - PO 25 mg BID PRN Administration dizziness Montelukast Sodium 10 mg 05/14/20 22:00 05/15/20 22:15 Singulair - PO 10 mg HS [facility] Administration Pantoprazole Sodium 40 mg 05/15/20 07:00 05/16/20 06:11 Protonix - PO 40 mg ACBK [facility] Administration Prednisone 40 mg 05/15/20 14:00 05/16/20 06:11 Deltasone - PO 40 mg TID [facility] Administration Vital Signs Period Temp Pulse Resp BP Sys/[place] Pulse Ox Last 24 Hr 97.8 F-98.7 F 90-110 20-22 120-143/53-92 98-100 Constitutional: Yes: Well Nourished, No Distress, Calm Cardiovascular: Yes: Regular Rate and Rhythm, S1, S2. No: Gallop, Murmur Respiratory: Yes: Regular, CTA Bilaterally. No: Accessory Muscle Use Extremities: No: Cold Edema: No Neurological: Yes: Alert, Oriented. No: Seizure Labs: CBC, BMP 05/12/20 06:36 05/12/20 12:36 Assessment/Plan ECG: NSR with PVC, APC. no ST-T abn, no q waves CXR: clear lungs chest pain: -chronic sx, sees outside cardio (Dr. Marcial, [facility]). sx's going on for long time, had stress test approx 2 mo ago per dtr, they were told it was fine (results not currently available). -history equivocal for whether or not was truly nitro-responsive. -on exam, she is very tender over the area, but not quite reproduces sx's. -trop x 2 neg, ecg non-ischemic. -suspect mskel > anginal etiology, but clinical picture uncertain. -given recent stress test normal, repeat stress testing is not indicated here. reasonable to image coronaries with CCTA as outpatient. d/w'd Dr. Marcial, pt's flag maker, who agrees with plan to discharge if she remains stable and have pt call her at office on Wednesday to arrange for f/u and/or imaging. -clinically stable, no concerning sx's for ongoing cardiac ischemia. cardiac malcolm pt ok for discharge, should call Dr. Marcial to arrange CCTA. Afib: -sinus here -not on AVN blockers at home--no change -cont home Eliquis 2.5 bid (indicated dose is 5mg based on her wt/creatinine, however she is following with outside cardio hence will not change plan) HTN -bp controlled -cont losartan, HCTZ home regimen h/o TIA -on AC, statin at home--continue same h/o DVTs -AC per outside MDs' plan
[2020-05-16] MEDS: FLUTICASONE PROP 0.05% 16 GM NASAL SPRAY NS SCH (14:28)
--- NOTE | 2020-05-16 14:48 | PN ---
Progress Note (short form) - Note Progress Note: Tachypneic at rest and increased with speaking. Congested cough. No CP. No acute events overnight. Intake & Output 05/13/20 05/14/20 05/15/20 05/16/20 23:59 23:59 23:59 23:59 Intake Total 240 320 286 Balance 240 320 286 Last Vital Signs Temp Pulse Resp BP Pulse Ox 98.1 F 100 H 20 140/70 98 05/16/20 14:37 05/16/20 14:37 05/16/20 14:37 05/16/20 14:37 05/16/20 10:00 Active Medications Acetaminophen (Tylenol -) 650 mg PO Q6H PRN PRN Reason: PAIN LEVEL 6-10 Last Admin: 05/13/20 21:14 Dose: 650 mg Documented by: Albuterol Sulfate (Ventolin 0.083% Nebulizer Soln -) 1 amp NEB RQ4H [facility] Last Admin: 05/16/20 14:03 Dose: Not Given Documented by: Albuterol Sulfate (Ventolin Hfa Inhaler -) 2 puff IH Q4H PRN PRN Reason: SHORT OF BREATH/WHEEZING Apixaban (Eliquis -) 2.5 mg PO BID [facility] Last Admin: 05/16/20 09:38 Dose: 2.5 mg Documented by: Atorvastatin Calcium (Lipitor -) 20 mg PO HS [facility] Last Admin: 05/15/20 22:15 Dose: 20 mg Documented by: Budesonide/Formoterol Fumarate (Symbicort 160/4.5mcg -) 1 puff IH BID [facility] Last Admin: 05/16/20 09:38 Dose: 1 puff Documented by: Fluticasone Propionate (Flonase -) 2 spray NS DAILY [facility] Last Admin: 05/16/20 14:28 Dose: 2 sprays Documented by: Guaifenesin (Robitussin -) 10 ml PO Q6H PRN PRN Reason: CONGESTION Last Admin: 05/15/20 22:16 Dose: 10 ml Documented by: Hydrochlorothiazide (Hctz -) 25 mg PO DAILY [facility] Last Admin: 05/16/20 09:38 Dose: 25 mg Documented by: Insulin Aspart ([facility]iding [facility] -[facility] Last Admin: 08/20/20 06:09 Dose: 5 units Documented by: Levetiracetam (Keppra -) 750 mg PO BID [facility] Last Admin: 05/16/20 09:37 Dose: 750 mg Documented by: Levothyroxine Sodium (Synthroid -) 12.[address] [facility] Losartan Potassium (Cozaar -) 100 mg PO DAILY [facility] Last Admin: 05/16/20 09:38 Dose: 100 mg Documented by: Meclizine HCl (Antivert -) 25 mg PO BID PRN PRN Reason: dizziness Last Admin: 05/15/20 22:15 Dose: 25 mg Documented by: Montelukast Sodium (Singulair -) 10 mg PO HS [facility] Last Admin: 05/15/20 22:15 Dose: 10 mg Documented by: Pantoprazole Sodium (Protonix -) 40 mg PO ACBK [facility] Last Admin: 05/16/20 06:11 Dose: 40 mg Documented by: Prednisone (Deltasone -) 40 mg PO TID [facility] Last Admin: 05/16/20 14:27 Dose: 40 mg Documented by: Constitutional: Yes: Obese, mildly tachypneic at rest Eyes: Yes: WNL HENT: Yes: WNL Neck: Yes: WNL Cardiovascular: Yes: Regular Rate and Rhythm, S1, S2 Respiratory: Yes: Bilateral coarse rhonchi and expiratory wheezes Gastrointestinal: Yes: Normal Bowel Sounds, Soft Extremities: Yes: WNL Edema: No Labs: Laboratory Results - last 24 hr 05/15/20 05/16/20 16:53 06:04 POC Glucometer 349 275 Assessment/Plan Problem List - Problems (1) Chest pain Code(s): R07.9 - CHEST PAIN, UNSPECIFIED Qualifiers: Chest pain type: unspecified Qualified Code(s): R07.9 - Chest pain, unspecified (2) Acute bronchitis Code(s): J20.9 - ACUTE BRONCHITIS, UNSPECIFIED Qualifiers: Bronchitis organism: unspecified organism Qualified Code(s): J20.9 - Acute bronchitis, unspecified (3) Acute exacerbation of mild persistent extrinsic asthma Code(s): J45.31 - MILD PERSISTENT ASTHMA WITH (ACUTE) EXACERBATION (4) Anxiety Code(s): F41.9 - ANXIETY DISORDER, UNSPECIFIED (5) Atypical chest pain Code(s): R07.89 - OTHER CHEST PAIN (6) Cough Code(s): R05 - COUGH (7) Hypertension Code(s): I10 - ESSENTIAL (PRIMARY) HYPERTENSION (8) Hypothyroid Code(s): E03.9 - HYPOTHYROIDISM, UNSPECIFIED (9) Paroxysmal A-fib Code(s): I48.0 - PAROXYSMAL ATRIAL FIBRILLATION (10) Hyperlipemia Code(s): E78.5 - HYPERLIPIDEMIA, UNSPECIFIED Qualifiers: Hyperlipidemia type: pure hypercholesterolemia Qualified Code(s): E78.00 - Pure hypercholesterolemia, unspecified (11) Hypertension Code(s): I10 - ESSENTIAL (PRIMARY) HYPERTENSION Qualifiers: Hypertension type: essential hypertension Qualified Code(s): I10 - Essential (primary) hypertension (12) Hypothyroidism Code(s): E03.9 - HYPOTHYROIDISM, UNSPECIFIED Qualifiers: Hypothyroidism type: unspecified Qualified Code(s): E03.9 - Hypothyroidism, unspecified (13) Moderate aortic stenosis Code(s): I35.0 - NONRHEUMATIC AORTIC (VALVE) STENOSIS (14) Seizure disorder Code(s): G40.909 - EPILEPSY, UNSP, NOT INTRACTABLE, WITHOUT STATUS EPILEPTICUS (15) Type 2 diabetes mellitus Code(s): E11.9 - TYPE 2 DIABETES MELLITUS WITHOUT COMPLICATIONS Qualifiers: Diabetes mellitus fpc insulin use: without terminal clerk use Diabetes mellitus complication status: without complication Qualified Code(s): E11.9 - Type 2 diabetes mellitus without complications (16) Chest pain Code(s): R07.9 - CHEST PAIN, UNSPECIFIED Qualifiers: Chest pain type: unspecified Qualified Code(s): R07.9 - Chest pain, unspecified (17) Dyspnea and respiratory abnormalities Code(s): R06.00 - DYSPNEA, UNSPECIFIED; R06.89 - OTHER ABNORMALITIES OF BREATHING (18) Shortness of breath Code(s): R06.02 - SHORTNESS OF BREATH Assessment/Plan Continue Medrol q 8h Symbicort BID BD TX No smoking Monitor off ABX Dr Christopher Problem List - Problems (1) Chest pain Code(s): R07.9 - CHEST PAIN, UNSPECIFIED Qualifiers: Chest pain type: unspecified Qualified Code(s): R07.9 - Chest pain, unspecified (2) Acute bronchitis Code(s): J20.9 - ACUTE BRONCHITIS, UNSPECIFIED Qualifiers: Bronchitis organism: unspecified organism Qualified Code(s): J20.9 - Acute bronchitis, unspecified (3) Acute exacerbation of mild persistent extrinsic asthma Code(s): J45.31 - MILD PERSISTENT ASTHMA WITH (ACUTE) EXACERBATION (4) Anxiety Code(s): F41.9 - ANXIETY DISORDER, UNSPECIFIED (5) Atypical chest pain Code(s): R07.89 - OTHER CHEST PAIN (6) Cough Code(s): R05 - COUGH (7) Hypertension Code(s): I10 - ESSENTIAL (PRIMARY) HYPERTENSION (8) Hypothyroid Code(s): E03.9 - HYPOTHYROIDISM, UNSPECIFIED (9) Paroxysmal A-fib Code(s): I48.0 - PAROXYSMAL ATRIAL FIBRILLATION (10) Hyperlipemia Code(s): E78.5 - HYPERLIPIDEMIA, UNSPECIFIED Qualifiers: Hyperlipidemia type: pure hypercholesterolemia Qualified Code(s): E78.00 - Pure hypercholesterolemia, unspecified (11) Hypertension Code(s): I10 - ESSENTIAL (PRIMARY) HYPERTENSION Qualifiers: Hypertension type: essential hypertension Qualified Code(s): I10 - Essential (primary) hypertension (12) Hypothyroidism Code(s): E03.9 - HYPOTHYROIDISM, UNSPECIFIED Qualifiers: Hypothyroidism type: unspecified Qualified Code(s): E03.9 - Hypothyroidism, unspecified (13) Moderate aortic stenosis Code(s): I35.0 - NONRHEUMATIC AORTIC (VALVE) STENOSIS (14) Seizure disorder Code(s): G40.909 - EPILEPSY, UNSP, NOT INTRACTABLE, WITHOUT STATUS EPILEPTICUS (15) Type 2 diabetes mellitus Code(s): E11.9 - TYPE 2 DIABETES MELLITUS WITHOUT COMPLICATIONS Qualifiers: Diabetes mellitus fpc insulin use: without terminal clerk use Diabetes mellitus complication status: without complication Qualified Code(s): E11.9 - Type 2 diabetes mellitus without complications (16) Chest pain Code(s): R07.9 - CHEST PAIN, UNSPECIFIED Qualifiers: Chest pain type: unspecified Qualified Code(s): R07.9 - Chest pain, unspecified (17) Dyspnea and respiratory abnormalities Code(s): R06.00 - DYSPNEA, UNSPECIFIED; R06.89 - OTHER ABNORMALITIES OF BREATHING (18) Shortness of breath Code(s): R06.02 - SHORTNESS OF BREATH
--- NOTE | 2020-05-16 15:22 | CON.PSY ---
Psychiatry Consult Chief Complaint: 79 Year old female with a history of Anxiety and Paranoia along with chronic medical conditions seen for Psych eval.. Reports of Paranoia which patient is not able to elaborate. they also found some Prednisone pills by her bedside. PMD reports history of poaranoia but refused any Psych care... Symptoms: reports: Anxiety, Paranoia - Previous Psychiatric Treatment Outpatient: None Inpatient: None - Previous Substance Abuse Treatment Outpatient: None Inpatient: None - Current Medications Current Medications: Active Medications Acetaminophen (Tylenol -) 650 mg PO Q6H PRN PRN Reason: PAIN LEVEL 6-10 Last Admin: 05/13/20 21:14 Dose: 650 mg Documented by: Albuterol Sulfate (Ventolin 0.083% Nebulizer Soln -) 1 amp NEB RQ4H [facility] Last Admin: 05/16/20 14:03 Dose: Not Given Documented by: Albuterol Sulfate (Ventolin Hfa Inhaler -) 2 puff IH Q4H PRN PRN Reason: SHORT OF BREATH/WHEEZING Apixaban (Eliquis -) 2.5 mg PO BID [facility] Last Admin: 05/16/20 09:38 Dose: 2.5 mg Documented by: Atorvastatin Calcium (Lipitor -) 20 mg PO HS [facility] Last Admin: 05/15/20 22:15 Dose: 20 mg Documented by: Budesonide/Formoterol Fumarate (Symbicort 160/4.5mcg -) 1 puff IH BID [facility] Last Admin: 05/16/20 09:38 Dose: 1 puff Documented by: Fluticasone Propionate (Flonase -) 2 spray NS DAILY [facility] Last Admin: 05/16/20 14:28 Dose: 2 sprays Documented by: Guaifenesin (Robitussin -) 10 ml PO Q6H PRN PRN Reason: CONGESTION Last Admin: 05/15/20 22:16 Dose: 10 ml Documented by: Hydrochlorothiazide (Hctz -) 25 mg PO DAILY [facility] Last Admin: 05/16/20 09:38 Dose: 25 mg Documented by: Insulin [facility]art ([facility] -[facility] Protocol Last Admin: 05/16/20 06:09 Dose: 5 units Documented by: Levetiracetam (Keppra -) 750 mg PO BID [facility] Last Admin: 05/16/20 09:37 Dose: 750 mg Documented by: Levothyroxine Sodium (Synthroid -) 12.5 mcg PO ACBK [facility] Losartan Potassium (Cozaar -) 100 mg PO DAILY [facility] Last Admin: 05/16/20 09:38 Dose: 100 mg Documented by: Meclizine HCl (Antivert -) 25 mg PO BID PRN PRN Reason: dizziness Last Admin: 05/15/20 22:15 Dose: 25 mg Documented by: Montelukast Sodium (Singulair -) 10 mg PO HS [facility] Last Admin: 05/15/20 22:15 Dose: 10 mg Documented by: Pantoprazole Sodium (Protonix -) 40 mg PO ACBK [facility] Last Admin: 05/16/20 06:11 Dose: 40 mg Documented by: Prednisone (Deltasone -) 40 mg PO TID [facility] Last Admin: 05/16/20 14:27 Dose: 40 mg Documented by: - Allergies Allergies: Allergies Allergy/AdvReac Type Severity Reaction Status Date / Time Penicillins Allergy Swelling Verified 05/11/20 03:02 - Current Living Status Usual Living Arrangement: With Child - Current Mental Status Evaluation Appearance: Well Groomed Attitude: Guarded - Affect Affect: Constrictive Appropriateness: Appropriate to Content - Mood Mood: Anxious - Speech/Language Expressive: Coherent - Psychomotor Activity Psychomotor Activity: Normal - Thought Process Thought Process: Intact - Thought Content Hallucinations: Absent Type: Persectory - Self Perception Self Perception: No Impairment - Cognition Attention: Alert Orientation: Time Memory, Immediate Recall: Intact Memory, Short Term: 3/3 Memory, Remote with Promptin/3 - Concentration Serial Sevens Intact: No Simple Calculations Intact: No - Abstraction Proverb Interpretation: Intact Judgement: Minimally Impaired - Insight Insight: Intact - Impulse Control Impulse Control: Minimally Impaired - Suicidal Ideation Suicidal Ideation: No - Homicidal Ideation Homicidal Ideation: No Assessment/Plan 1) Start Abilfy 5 mg po od for paranoia.
[2020-05-16] MEDS ORDERED: INSULIN (NOVOLOG) ASPART 100 UNITS/ML 10ML VIAL SQ ONE ×2 (17:24→21:01)
[2020-05-16] MEDS: MONTELUKAST NA 10 MG TABLET PO SCH (21:44)
[2020-05-16] MEDS: ATORVASTATIN CA 20 MG TABLET (FP) PO SCH (21:45)
[2020-05-17] MEDS: ALBUTEROL SO4 0.083% IH SOL 2.5 MG/3 ML VIAL.NEB. NEB SCH ×6 (00:30→20:36)
[2020-05-17] MEDS: INSULIN SLIDING SCALE (NOVOLOG) 1 VIAL SQ SCH ×2 (06:19→16:57)
[2020-05-17] MEDS: LEVOTHYROXINE NA 25 MCG TABLET (FP) PO SCH (06:21)
[2020-05-17] MEDS: PANTOPRAZOLE 40 MG TABLET PO SCH (06:21)
[2020-05-17] MEDS: predniSONE 20 MG TABLET (UD) PO SCH ×3 (06:22→21:51)
[2020-05-17] MEDS ORDERED: PT OWN MED DRAWER 7, Y5N ONE (09:12)
[2020-05-17] MEDS: APIXABAN 2.5 MG TABLET PO SCH ×2 (09:14→21:51)
[2020-05-17] MEDS: ARIPiprazole 5 MG TABLET PO SCH (09:14)
[2020-05-17] MEDS: levETIRAcetam 250 MG TABLET PO SCH ×2 (09:14→21:51)
[2020-05-17] MEDS: HYDROCHLOROTHIAZIDE 25 MG TABLET (FP) PO SCH (09:15)
[2020-05-17] MEDS: BUDESONIDE/FORMETEROL FUMARATE 160/4.5 mcg INHALER IH SCH ×2 (09:15→21:52)
[2020-05-17] MEDS: FLUTICASONE PROP 0.05% 16 GM NASAL SPRAY NS SCH (09:15)
[2020-05-17] MEDS: LOSARTAN POTASSIUM 50 MG TABLET (FP) PO SCH (09:22)
[2020-05-17] MEDS: MECLIZINE HCL 25 MG TABLET (FP) PO PRN (09:30)
[2020-05-17 11:17] LABS: BASO % 0.1 % (0-2.0); EOS % 0.1 % (0-4.5); HEMATOCRIT 40.5 % (32.4-45.2); LYMPH % 1.8 % (8-40); MCH 27.8 pg (25.7-33.7); MCHC 32.1 g/dl (32.0-36.0); MEAN CELL VOLUME 86.4 fl (80-96); MEAN PLT VOLUME 9.2 fl (7.5-11.1); MONO % 4.9 % (3.8-10.2); NEUT % 93.1 % (42.8-82.8); PLATELET COUNT 156 K/MM3 (134-434); RBC 4.69 M/mm3 (3.60-5.2); RDW 16.8 % (11.6-15.6); WHITE BLOOD COUNT 17.5 K/mm3 (4.0-10.0)
[2020-05-17 11:45] LABS: ALBUMIN 2.8 g/dl (3.4-5.0); CALCIUM 8.6 mg/dL (8.5-10.1); CREATININE 0.9 mg/dL (0.55-1.3); POTASSIUM 4.3 mmol/L (3.5-5.1); TOT PROT 5.3 g/dl (6.4-8.2)
--- NOTE | 2020-05-17 11:53 | PN ---
Progress Note, Physician History of Present Illness: patient seen and examined today chart is reviewed All follow-ups noted Started on Abilify Awake Comfortable Anxious - Current Medication List Current Medications: Active Medications Acetaminophen (Tylenol -) 650 mg PO Q6H PRN PRN Reason: PAIN LEVEL 6-10 Last Admin: 05/13/20 21:14 Dose: 650 mg Documented by: Albuterol Sulfate (Ventolin 0.083% Nebulizer Soln -) 1 amp NEB RQ4H [facility] Last Admin: 05/17/20 11:43 Dose: 1 amp Documented by: Albuterol Sulfate (Ventolin Hfa Inhaler -) 2 puff IH Q4H PRN PRN Reason: SHORT OF BREATH/WHEEZING Apixaban (Eliquis -) 2.5 mg PO BID [facility] Last Admin: 05/17/20 09:14 Dose: 2.5 mg Documented by: Aripiprazole (Abilify) 5 mg PO DAILY [facility] Last Admin: 05/17/20 09:14 Dose: 5 mg Documented by: Atorvastatin Calcium (Lipitor -) 20 mg PO HS [facility] Last Admin: 05/16/20 21:45 Dose: 20 mg Documented by: Budesonide/Formoterol Fumarate (Symbicort 160/4.5mcg -) 1 puff IH BID [facility] Last Admin: 05/17/20 09:15 Dose: 1 puff Documented by: Fluticasone Propionate (Flonase -) 2 spray NS DAILY [facility] Last Admin: 05/17/20 09:15 Dose: 2 sprays Documented by: Guaifenesin (Robitussin -) 10 ml PO Q6H PRN PRN Reason: CONGESTION Last Admin: 05/15/20 22:16 Dose: 10 ml Documented by: Hydrochlorothiazide (Hctz -) 25 mg PO DAILY [facility] Last Admin: 05/17/20 09:15 Dose: 25 mg Documented by: Insulin Aspart (Novolog Vial Sliding Scale -) [facility]; Protocol Last Admin: 05/17/20 06:19 Dose: 5 units Documented by: Insulin Detemir (Levemir Vial) 8 units SQ [facility] Levetiracetam (Keppra -) 750 mg PO BID [facility] Last Admin: 05/17/20 09:14 Dose: 750 mg Documented by: Levothyroxine Sodium (Synthroid -) 12.5 mcg PO ACBK [facility] Last Admin: 05/17/20 06:21 Dose: 12.5 mcg Documented by: Losartan Potassium (Cozaar -) 100 mg PO DAILY [facility] Last Admin: 05/17/20 09:22 Dose: 100 mg Documented by: Meclizine HCl (Antivert -) 25 mg PO BID PRN PRN Reason: dizziness Last Admin: 05/17/20 09:30 Dose: 25 mg Documented by: Montelukast Sodium (Singulair -) 10 mg PO HS [facility] Last Admin: 05/16/20 21:44 Dose: 10 mg Documented by: Pantoprazole Sodium (Protonix -) 40 mg PO ACBK [facility] Last Admin: 05/17/20 06:21 Dose: 40 mg Documented by: Prednisone (Deltasone -) 40 mg PO TID [facility] Last Admin: 05/17/20 06:22 Dose: 40 mg Documented by: - Objective Vital Signs: Vital Signs Temperature 98.9 F 05/17/20 09:25 Pulse Rate 106 H 05/17/20 09:25 Respiratory Rate 20 05/17/20 09:25 Blood Pressure 132/80 05/17/20 09:25 O2 Sat by Pulse Oximetry (%) 95 05/17/20 09:25 Constitutional: Yes: No Distress, Anxious Neck: Yes: Supple Cardiovascular: Yes: Regular Rate and Rhythm Respiratory: Yes: Rhonchi Gastrointestinal: Yes: Soft Edema: No Neurological: Yes: Alert Labs: CBC, BMP 05/17/20 10:50 05/17/20 08:55 Problem List - Problems (1) Chest pain Code(s): R07.9 - CHEST PAIN, UNSPECIFIED Qualifiers: Chest pain type: unspecified Qualified Code(s): R07.9 - Chest pain, unspecified (2) Anxiety Code(s): F41.9 - ANXIETY DISORDER, UNSPECIFIED (3) Asthma exacerbation Code(s): J45.901 - UNSPECIFIED ASTHMA WITH (ACUTE) EXACERBATION Qualifiers: Asthma severity: unspecified severity Asthma persistence: unspecified Qualified Code(s): J45.901 - Unspecified asthma with (acute) exacerbation (4) Elevated WBC count Code(s): D72.829 - ELEVATED WHITE BLOOD CELL COUNT, UNSPECIFIED (5) Paroxysmal A-fib Code(s): I48.0 - PAROXYSMAL ATRIAL FIBRILLATION Assessment/Plan Overall looks better still having Shortness of breath Continue present care Steroids out of bed to chair GI prophylaxis Nebulizer treatment-- Pulmonary following discussed with Dr. Benavides also today will not discharge today Reassess tomorrow Add basal insulin Monitor blood sugar Labs were ordered for today--- reviewed Will follow D/W Rn also daily out of bed to chair
--- NOTE | 2020-05-17 12:13 | PN ---
Progress Note (short form) - Note Progress Note: PULMONARY AWAKE/ALERT NO LONGER COMPLAINING OF CHEST PAIN COUGH WITH WHEEZES TO FORCED EXHALATION VSS/AFEBRILE Constitutional: Yes: No Distress, Anxious, Obese HENT: Yes: Atraumatic, Normocephalic Neck: Yes: Supple, Trachea Midline Cardiovascular: Yes: Regular Rate and Rhythm. No: Varicosities Respiratory: Yes: Cough, Diminished, Rhonchi, SOB, SOB on Exertion. No: Rales, Stridor, Tachypnea, Wheezes ...Inspection: Yes: WNL ...Clubbing: No Gastrointestinal: Yes: Normal Bowel Sounds, Soft, Abdomen, Obese Renal/: Yes: WNL Musculoskeletal: Yes: WNL Extremities: Yes: WNL Edema: No Peripheral Pulses WNL: Yes Integumentary: Yes: WNL Neurological: Yes: WNL, Alert, Oriented ...Motor Strength: WNL Psychiatric: Yes: WNL, Alert, Oriented Chest X-ray: Report Reviewed, Image Reviewed Cat Scan: Report Reviewed, Image Reviewed Labs reviewed Problem List - Problems (1) Chest pain Code(s): R07.9 - CHEST PAIN, UNSPECIFIED Qualifiers: Chest pain type: unspecified Qualified Code(s): R07.9 - Chest pain, unspecified (2) Acute bronchitis Code(s): J20.9 - ACUTE BRONCHITIS, UNSPECIFIED Qualifiers: Bronchitis organism: unspecified organism Qualified Code(s): J20.9 - Acute bronchitis, unspecified (3) Acute exacerbation of mild persistent extrinsic asthma Code(s): J45.31 - MILD PERSISTENT ASTHMA WITH (ACUTE) EXACERBATION (4) Anxiety Code(s): F41.9 - ANXIETY DISORDER, UNSPECIFIED (5) Atypical chest pain Code(s): R07.89 - OTHER CHEST PAIN (6) Cough Code(s): R05 - COUGH (7) Hypertension Code(s): I10 - ESSENTIAL (PRIMARY) HYPERTENSION (8) Hypothyroid Code(s): E03.9 - HYPOTHYROIDISM, UNSPECIFIED (9) Paroxysmal A-fib Code(s): I48.0 - PAROXYSMAL ATRIAL FIBRILLATION (10) Hyperlipemia Code(s): E78.5 - HYPERLIPIDEMIA, UNSPECIFIED Qualifiers: Hyperlipidemia type: pure hypercholesterolemia Qualified Code(s): E78.00 - Pure hypercholesterolemia, unspecified (11) Hypertension Code(s): I10 - ESSENTIAL (PRIMARY) HYPERTENSION Qualifiers: Hypertension type: essential hypertension Qualified Code(s): I10 - Essential (primary) hypertension (12) Hypothyroidism Code(s): E03.9 - HYPOTHYROIDISM, UNSPECIFIED Qualifiers: Hypothyroidism type: unspecified Qualified Code(s): E03.9 - Hypothyroidism, unspecified (13) Moderate aortic stenosis Code(s): I35.0 - NONRHEUMATIC AORTIC (VALVE) STENOSIS (14) Seizure disorder Code(s): G40.909 - EPILEPSY, UNSP, NOT INTRACTABLE, WITHOUT STATUS EPILEPTICUS (15) Type 2 diabetes mellitus Code(s): E11.9 - TYPE 2 DIABETES MELLITUS WITHOUT COMPLICATIONS Qualifiers: Diabetes mellitus exterminator termite insulin use: without exterminator termite use Diabetes mellitus complication status: without complication Qualified Code(s): E11.9 - Type 2 diabetes mellitus without complications (16) Chest pain Code(s): R07.9 - CHEST PAIN, UNSPECIFIED Qualifiers: Chest pain type: unspecified Qualified Code(s): R07.9 - Chest pain, unspecified (17) Dyspnea and respiratory abnormalities Code(s): R06.00 - DYSPNEA, UNSPECIFIED; R06.89 - OTHER ABNORMALITIES OF BREATHING (18) Shortness of breath Code(s): R06.02 - SHORTNESS OF BREATH Taper prednisone Bronchodilators as ordered Glycemic control O2 Will follow. Tammy CONNOR MD
[2020-05-17 12:28] LABS: ANISOCYTOSIS 1+; MACROCYTOSIS 0; PLATELET ESTIMATE NORMAL
[2020-05-17] MEDS: MONTELUKAST NA 10 MG TABLET PO SCH (21:51)
[2020-05-17] MEDS: ATORVASTATIN CA 20 MG TABLET (FP) PO SCH (21:51)
[2020-05-17] MEDS: INSULIN (LEVEMIR) 100 UNITS/ML UNITS SQ SCH (21:52)
[2020-05-18] MEDS: ALBUTEROL SO4 0.083% IH SOL 2.5 MG/3 ML VIAL.NEB. NEB SCH ×6 (00:29→20:49)
[2020-05-18] MEDS: guaiFENesin 200 MG/10 ML 10 ML UNIT-DOSE CUPS PO PRN (03:00)
[2020-05-18] MEDS: MECLIZINE HCL 25 MG TABLET (FP) PO PRN (04:42)
--- NOTE | 2020-05-18 05:53 | HOSP ---
Subjective - Review of Symptoms Events since last encounter: Hospitalist Encounter Notified by the RN that the patient reports having left arm numbness. Arrived to bedside, patient is alert, awake, oriented to name- confused- at baseline Neuro exam performed at bedside- +LUE weakness with drift, grasp 3/5, no slurred speech, no facial droop, moving all other extremities with grasp 5/5 Plan: Brain CT- stat Neurological: Yes: Numbness (LUE) Physical Examination Vital Signs: Vital Signs Temperature 97.8 F 05/17/20 16:35 Pulse Rate 81 05/17/20 16:35 Respiratory Rate 20 05/17/20 21:00 Blood Pressure 101/61 05/17/20 16:35 O2 Sat by Pulse Oximetry (%) 99 05/17/20 21:00 Constitutional: Yes: Well Nourished, Anxious, Mild Distress, Obese Eyes: Yes: Conjunctiva Clear, EOM Intact, PERRL HENT: Yes: Atraumatic, Normocephalic Neck: Yes: WNL, Supple, Trachea Midline Cardiovascular: Yes: Regular Rate and Rhythm, S1, S2 Respiratory: Yes: Regular, CTA Bilaterally Gastrointestinal: Yes: Normal Bowel Sounds, Soft, Abdomen, Obese Musculoskeletal: Yes: WNL Extremities: Yes: WNL Edema: No Peripheral Pulses WNL: Yes Neurological: Yes: Alert, Oriented (to name, ), Numbness, Weakness (LUE). No: Facial Droop ...Motor Strength: LUE (3/5), LLE (5/5), RUE (5/5), RLE (5/5) Psychiatric: Yes: Alert, Oriented (name, ) Labs: CBC, BMP 05/17/20 10:50 05/17/20 08:55 Hospitalist Encounter Assessment: This is an 79 y/o female with PMH of asthma, paroxysmal afib, TIA, and bilateral DVT's. Admitted for Chest Pain. Outcome: Discussed results with Dr Marcus Miguel- imaging publications inspector radiologist- Brain CT - neg ICH, mass or lesions Informed RN of result PMD to follow up Critical Care Total Critical Care Time (in minutes): 35 Critical Care Statement: The care of this patient involved high complexity decision making to prevent further life threatening deterioration of the patient's condition and/or to evaluate & treat vital organ system(s) failure or risk of failure.
[2020-05-18] MEDS: predniSONE 20 MG TABLET (UD) PO SCH ×3 (06:25→21:26)
[2020-05-18] MEDS: LEVOTHYROXINE NA 25 MCG TABLET (FP) PO SCH (06:26)
[2020-05-18] MEDS: PANTOPRAZOLE 40 MG TABLET PO SCH (06:27)
[2020-05-18] MEDS: INSULIN SLIDING SCALE (NOVOLOG) 1 VIAL SQ SCH ×2 (06:27→17:12)
[2020-05-18] MEDS: levETIRAcetam 250 MG TABLET PO SCH ×2 (09:18→21:27)
[2020-05-18] MEDS: LOSARTAN POTASSIUM 50 MG TABLET (FP) PO SCH (09:18)
[2020-05-18] MEDS: ARIPiprazole 5 MG TABLET PO SCH (09:19)
[2020-05-18] MEDS: HYDROCHLOROTHIAZIDE 25 MG TABLET (FP) PO SCH (09:19)
[2020-05-18] MEDS: APIXABAN 2.5 MG TABLET PO SCH ×2 (09:19→21:27)
--- NOTE | 2020-05-18 09:21 | PN ---
Progress Note (short form) - Note Progress Note: SOB less coughing less c/o to have left arm numbness early this AM currently no complaints states she feels fine no chest pain CT head negative Vital Signs - 24 hr 05/17/20 05/17/20 05/17/20 09:25 15:35 16:35 Temperature 98.9 F 98 F 97.8 F Pulse Rate 106 H 88 81 Respiratory 20 20 21 H Rate Blood Pressure 132/80 114/63 101/61 O2 Sat by Pulse 95 99 96 Oximetry (%) 05/17/20 05/18/20 21:00 09:09 Temperature 98.5 F Pulse Rate 88 Respiratory 20 20 Rate Blood Pressure 123/54 L O2 Sat by Pulse 99 97 Oximetry (%) Current Medications Generic Name Dose Route Start Last Admin Trade Name Freq PRN Reason Stop Dose Admin Acetaminophen 650 mg 05/13/20 20:18 05/13/20 21:14 Tylenol - PO 650 mg Q6H PRN Administration PAIN LEVEL 6-10 Albuterol Sulfate 1 amp 05/14/20 16:00 05/18/20 07:42 Ventolin 0.083% Nebulizer Soln - NEB 1 amp RQ4H [facility] Administration Albuterol Sulfate 2 puff 05/14/20 20:29 Ventolin Hfa Inhaler - IH Q4H PRN SHORT OF BREATH/WHEEZING Apixaban 2.5 mg 05/14/20 22:00 05/17/20 21:51 Eliquis - PO 2.5 mg BID [facility] Administration Aripiprazole 5 mg 05/17/20 10:00 05/17/20 09:14 Abilify PO 5 mg DAILY [facility] Administration Atorvastatin Calcium 20 mg 05/14/20 22:00 05/17/20 21:51 Lipitor - PO 20 mg HS [facility] Administration Budesonide/Formoterol Fumarate 1 puff 05/14/20 22:00 05/17/20 21:52 Symbicort 160/4.5mcg - IH 1 puff BID [facility] Administration Fluticasone Propionate 2 spray 05/16/20 12:15 05/17/20 09:15 Flonase - NS 2 sprays DAILY [facility] Administration Guaifenesin 10 ml 05/14/20 20:29 05/18/20 03:00 Robitussin - PO 10 ml Q6H PRN Administration CONGESTION Hydrochlorothiazide 25 mg 05/15/20 10:00 05/17/20 09:15 Hctz - PO 25 mg DAILY [facility] Administration Insulin Aspart 1 vial 05/15/20 07:00 05/18/20 06:27 Novolog Vial Sliding Scale - SQ 3 units BIDAC [facility] Administration Protocol Insulin Detemir 8 units 05/17/20 22:00 05/17/20 21:52 Levemir Vial SQ 8 units HS [facility] Administration Levetiracetam 750 mg 05/14/20 22:00 05/17/20 21:51 Keppra - PO 750 mg BID [facility] Administration Levothyroxine Sodium 12.5 mcg 05/16/20 12:33 05/18/20 06:26 Synthroid - PO 12.5 mcg ACBK [facility] Administration Losartan Potassium 100 mg 05/15/20 10:00 05/17/20 09:22 Cozaar - PO 100 mg DAILY [facility] Administration Meclizine HCl 25 mg 05/14/20 20:29 05/18/20 04:42 Antivert - PO 25 mg BID PRN Administration dizziness Montelukast Sodium 10 mg 05/14/20 22:00 05/17/20 21:51 Singulair - PO 10 mg HS [facility] Administration Pantoprazole Sodium 40 mg 05/15/20 07:00 05/18/20 06:27 Protonix - PO 40 mg ACBK [facility] Administration Prednisone 40 mg 05/15/20 14:00 05/18/20 06:25 Deltasone - PO 40 mg TID [facility] Administration Laboratory Results - last 24 hr 05/17/20 05/17/20 05/17/20 08:55 10:50 16:52 WBC 17.5 H RBC 4.69 Hgb 13.0 Hct 40.5 MCV 86.4 MCH 27.8 MCHC 32.1 RDW 16.8 H Plt Count 156 MPV 9.2 Absolute Neuts (auto) 16.3 H Neutrophils % 93.1 H Neutrophils % (Manual) 92.1 H Band Neutrophils % 0.0 Lymphocytes % 1.8 L D Lymphocytes % (Manual) 3.9 L D Monocytes % 4.9 D Monocytes % (Manual) 3 L Eosinophils % 0.1 D Eosinophils % (Manual) 0.0 Basophils % 0.1 Basophils % (Manual) 0.0 Myelocytes % (Man) 0 Promyelocytes % (Man) 0 Blast Cells % (Manual) 0 Nucleated RBC % 0 Metamyelocytes 1 D Hypochromia 1+ Platelet Estimate Normal Polychromasia 0 Poikilocytosis 0 Anisocytosis 1+ Microcytosis 1+ Macrocytosis 0 Sodium 139 Potassium 4.3 Chloride 100 Carbon Dioxide 28 Anion Gap 10 BUN 34.0 H Creatinine 0.9 Est GFR (CKD-EPI)AfAm 69.99 Est GFR (CKD-EPI)NonAf 60.39 POC Glucometer 391 Random Glucose 296 H Calcium 8.6 Total Bilirubin 1.0 AST 32 ALT 79 H Alkaline Phosphatase 79 Total Protein 5.3 L Albumin 2.8 L 05/17/20 05/18/20 21:39 05:43 WBC RBC Hgb Hct MCV MCH MCHC RDW Plt Count MPV Absolute Neuts (auto) Neutrophils % Neutrophils % (Manual) Band Neutrophils % Lymphocytes % Lymphocytes % (Manual) Monocytes % Monocytes % (Manual) Eosinophils % Eosinophils % (Manual) Basophils % Basophils % (Manual) Myelocytes % (Man) Promyelocytes % (Man) Blast Cells % (Manual) Nucleated RBC % Metamyelocytes Hypochromia Platelet Estimate Polychromasia Poikilocytosis Anisocytosis Microcytosis Macrocytosis Sodium Potassium Chloride Carbon Dioxide Anion Gap BUN Creatinine Est GFR (CKD-EPI)AfAm Est GFR (CKD-EPI)NonAf POC Glucometer 237 230 Random Glucose Calcium Total Bilirubin AST ALT Alkaline Phosphatase Total Protein Albumin S1 S2 RRR Lungs end-expiratory wheezing Abd- soft, obese, NT No edema PLAN paranoid anxiety COPD - -- continue with PO prednisone--taper today --nebs O2 stable on Abilify continue with meds COVID negative Problem List - Problems (1) SOB (shortness of breath) Code(s): R06.02 - SHORTNESS OF BREATH (2) Acute bronchitis Code(s): J20.9 - ACUTE BRONCHITIS, UNSPECIFIED Qualifiers: Bronchitis organism: unspecified organism Qualified Code(s): J20.9 - Acute bronchitis, unspecified (3) Acute exacerbation of mild persistent extrinsic asthma Code(s): J45.31 - MILD PERSISTENT ASTHMA WITH (ACUTE) EXACERBATION (4) Anxiety Code(s): F41.9 - ANXIETY DISORDER, UNSPECIFIED (5) Atypical chest pain Code(s): R07.89 - OTHER CHEST PAIN
[2020-05-18] MEDS: FLUTICASONE PROP 0.05% 16 GM NASAL SPRAY NS SCH (09:22)
[2020-05-18] MEDS: BUDESONIDE/FORMETEROL FUMARATE 160/4.5 mcg INHALER IH SCH ×2 (09:22→21:30)
--- NOTE | 2020-05-18 11:29 | PN ---
Progress Note (short form) - Note Progress Note: Chief Complaint: cp History of Present Illness: no cp sob palps dizzy - Current Medications Generic Name Dose Route Start Last Admin Trade Name Freq PRN Reason Stop Dose Admin Acetaminophen 650 mg 05/13/20 20:18 05/13/20 21:14 Tylenol - PO 650 mg Q6H PRN Administration PAIN LEVEL 6-10 Albuterol Sulfate 1 amp 05/14/20 16:00 05/18/20 11:08 Ventolin 0.083% Nebulizer Soln - NEB 1 amp RQ4H [facility] Administration Albuterol Sulfate 2 puff 05/14/20 20:29 Ventolin Hfa Inhaler - IH Q4H PRN SHORT OF BREATH/WHEEZING Apixaban 2.5 mg 05/14/20 22:00 05/18/20 09:19 Eliquis - PO 2.5 mg BID [facility] Administration Aripiprazole 5 mg 05/17/20 10:00 05/18/20 09:19 Abilify PO 5 mg DAILY [facility] Administration Atorvastatin Calcium 20 mg 05/14/20 22:00 05/17/20 21:51 Lipitor - PO 20 mg HS [facility] Administration Budesonide/Formoterol Fumarate 1 puff 05/14/20 22:00 05/18/20 09:22 Symbicort 160/4.5mcg - IH 1 puff BID [facility] Administration Fluticasone Propionate 2 spray 05/16/20 12:15 05/18/20 09:22 Flonase - NS 2 sprays DAILY [facility] Administration Guaifenesin 10 ml 05/14/20 20:29 05/18/20 03:00 Robitussin - PO 10 ml Q6H PRN Administration CONGESTION Hydrochlorothiazide 25 mg 05/15/20 10:00 05/18/20 09:19 Hctz - PO 25 mg DAILY [facility] Administration Insulin Aspart 1 vial 05/15/20 07:00 05/18/20 06:27 Novolog Vial Sliding Scale - SQ 3 units BIDAC [facility] Administration Protocol Insulin Detemir 8 units 05/17/20 22:00 05/17/20 21:52 Levemir Vial SQ 8 units HS [facility] Administration Levetiracetam 750 mg 05/14/20 22:00 05/18/20 09:18 Keppra - PO 750 mg BID [facility] Administration Levothyroxine Sodium 12.5 mcg 05/16/20 12:33 05/18/20 06:26 Synthroid - PO 12.5 mcg ACBK [facility] Administration Losartan Potassium 100 mg 05/15/20 10:00 05/18/20 09:18 Cozaar - PO 100 mg DAILY [facility] Administration Meclizine HCl 25 mg 05/14/20 20:29 05/18/20 04:42 Antivert - PO 25 mg BID PRN Administration dizziness Montelukast Sodium 10 mg 05/14/20 22:00 05/17/20 21:51 Singulair - PO 10 mg HS [facility] Administration Pantoprazole Sodium 40 mg 05/15/20 07:00 05/18/20 06:27 Protonix - PO 40 mg ACBK [facility] Administration Prednisone 40 mg 05/18/20 10:00 05/18/20 09:35 Deltasone - PO Not Given BID [facility] Vital Signs Period Temp Pulse Resp BP Sys/[place] Pulse Ox Last 24 Hr 97.8 F-98.5 F 81-88 20-21 101-123/54-63 96-99 Constitutional: Yes: Well Nourished, No Distress, Calm Cardiovascular: Yes: Regular Rate and Rhythm, S1, S2. No: Gallop, Murmur Respiratory: Yes: Regular, CTA Bilaterally. No: Accessory Muscle Use Extremities: No: Cold Edema: No Neurological: Yes: Alert, Oriented. No: Seizure Labs: CBC, BMP 05/17/20 10:50 05/17/20 08:55 Assessment/Plan ECG: NSR with PVC, APC. no ST-T abn, no q waves CXR: clear lungs chest pain: -chronic sx, sees outside cardio (Dr. Marcial, [facility]). sx's going on for long time, had stress test approx 2 mo ago per dtr, they were told it was fine (results not currently available). -history equivocal for whether or not was truly nitro-responsive. -on exam, she is very tender over the area, but not quite reproduces sx's. -trop x 2 neg, ecg non-ischemic. -suspect mskel > anginal etiology, but clinical picture uncertain. -given recent stress test normal, repeat stress testing is not indicated here. reasonable to image coronaries with CCTA as outpatient. d/w'd Dr. Marcial, pt's fire prevention research engineer, who agrees with plan to discharge if she remains stable and have pt call her at office on Wednesday to arrange for f/u and/or imaging. -clinically stable, no concerning sx's for ongoing cardiac ischemia. cardiac malcolm pt ok for discharge, should call Dr. Marcial to arrange CCTA. Afib: -sinus here -not on AVN blockers at home--no change -cont home Eliquis 2.5 bid (indicated dose is 5mg based on her wt/creatinine, however she is following with outside cardio hence will not change plan) HTN -bp controlled -cont losartan, HCTZ home regimen h/o TIA -on AC, statin at home--continue same h/o DVTs -AC per outside MDs' plan
[2020-05-18] MEDS ORDERED: INSULIN (NOVOLOG) ASPART 100 UNITS/ML 10ML VIAL ONE (17:08)
[2020-05-18] MEDS ORDERED: PT OWN MED DRAWER 7, Y5N ONE (17:08)
[2020-05-18] MEDS: MONTELUKAST NA 10 MG TABLET PO SCH (21:26)
[2020-05-18] MEDS: ATORVASTATIN CA 20 MG TABLET (FP) PO SCH (21:27)
[2020-05-18] MEDS: INSULIN (LEVEMIR) 100 UNITS/ML UNITS SQ SCH (21:27)
[2020-05-19] MEDS: ALBUTEROL SO4 0.083% IH SOL 2.5 MG/3 ML VIAL.NEB. NEB SCH ×3 (00:03→20:41)
[2020-05-19] MEDS: MECLIZINE HCL 25 MG TABLET (FP) PO PRN ×2 (03:00→14:17)
[2020-05-19] MEDS: guaiFENesin 200 MG/10 ML 10 ML UNIT-DOSE CUPS PO PRN ×2 (03:00→21:37)
[2020-05-19] MEDS: PANTOPRAZOLE 40 MG TABLET PO SCH (06:25)
[2020-05-19] MEDS: LEVOTHYROXINE NA 25 MCG TABLET (FP) PO SCH (06:25)
[2020-05-19] MEDS: INSULIN SLIDING SCALE (NOVOLOG) 1 VIAL SQ SCH ×2 (06:26→16:20)
[2020-05-19] MEDS ORDERED: INSULIN (NOVOLOG) ASPART 100 UNITS/ML 10ML VIAL ONE ×2 (06:30→16:08)
[2020-05-19] MEDS: APIXABAN 2.5 MG TABLET PO SCH ×2 (10:49→21:36)
[2020-05-19] MEDS: LOSARTAN POTASSIUM 50 MG TABLET (FP) PO SCH (10:49)
[2020-05-19] MEDS: ARIPiprazole 5 MG TABLET PO SCH (10:49)
[2020-05-19] MEDS: HYDROCHLOROTHIAZIDE 25 MG TABLET (FP) PO SCH (10:49)
[2020-05-19] MEDS: FLUTICASONE PROP 0.05% 16 GM NASAL SPRAY NS SCH (10:49)
[2020-05-19] MEDS: predniSONE 20 MG TABLET (UD) PO SCH ×2 (10:49→21:35)
[2020-05-19] MEDS: levETIRAcetam 250 MG TABLET PO SCH ×2 (10:49→21:36)
[2020-05-19] MEDS: BUDESONIDE/FORMETEROL FUMARATE 160/4.5 mcg INHALER IH SCH ×2 (10:51→21:46)
--- NOTE | 2020-05-19 11:02 | PN ---
Progress Note (short form) - Note Progress Note: Chief Complaint: cp History of Present Illness: no cp sob palps dizzy - Current Medications Generic Name Dose Route Start Last Admin Trade Name Freq PRN Reason Stop Dose Admin Acetaminophen 650 mg 05/13/20 20:18 05/13/20 21:14 Tylenol - PO 650 mg Q6H PRN Administration PAIN LEVEL 6-10 Albuterol Sulfate 1 amp 05/14/20 16:00 05/19/20 04:30 Ventolin 0.083% Nebulizer Soln - NEB 1 amp RQ4H LUIZA Administration Albuterol Sulfate 2 puff 05/14/20 20:29 Ventolin Hfa Inhaler - IH Q4H PRN SHORT OF BREATH/WHEEZING Apixaban 2.5 mg 05/14/20 22:00 05/19/20 10:49 Eliquis - PO 2.5 mg BID LUIZA Administration Aripiprazole 5 mg 05/17/20 10:00 05/19/20 10:49 Abilify PO 5 mg DAILY LUIZA Administration Atorvastatin Calcium 20 mg 05/14/20 22:00 05/18/20 21:27 Lipitor - PO 20 mg HS LUIZA Administration Budesonide/Formoterol Fumarate 1 puff 05/14/20 22:00 05/19/20 10:51 Symbicort 160/4.5mcg - IH 1 puff BID LUIZA Administration Fluticasone Propionate 2 spray 05/16/20 12:15 05/19/20 10:49 Flonase - NS 2 sprays DAILY LUIZA Administration Guaifenesin 10 ml 05/14/20 20:29 05/19/20 03:00 Robitussin - PO 10 ml Q6H PRN Administration CONGESTION Hydrochlorothiazide 25 mg 05/15/20 10:00 05/19/20 10:49 Hctz - PO 25 mg DAILY LUIZA Administration Insulin Aspart 1 vial 05/15/20 07:00 05/19/20 06:26 Novolog Vial Sliding Scale - SQ 5 units BIDAC LUIZA Administration Protocol Insulin Detemir 8 units 05/17/20 22:00 05/18/20 21:27 Levemir Vial SQ 8 units HS LUIZA Administration Levetiracetam 750 mg 05/14/20 22:00 05/19/20 10:49 Keppra - PO 750 mg BID LUIZA Administration Levothyroxine Sodium 12.5 mcg 05/16/20 12:33 05/19/20 06:25 Synthroid - PO 12.5 mcg ACBK LUIZA Administration Losartan Potassium 100 mg 05/15/20 10:00 05/19/20 10:49 Cozaar - PO 100 mg DAILY LUIZA Administration Meclizine HCl 25 mg 05/14/20 20:29 05/19/20 03:00 Antivert - PO 25 mg BID PRN Administration dizziness Montelukast Sodium 10 mg 05/14/20 22:00 05/18/20 21:26 Singulair - PO 10 mg HS LUIZA Administration Pantoprazole Sodium 40 mg 05/15/20 07:00 05/19/20 06:25 Protonix - PO 40 mg ACBK LUIZA Administration Prednisone 40 mg 05/18/20 10:00 05/19/20 10:49 Deltasone - PO 40 mg BID LUIZA Administration Vital Signs Period Temp Pulse Resp BP Sys/Sexton Pulse Ox Last 24 Hr 98.8 F-98.9 F 80-87 20-20 128-138/77-102 95-100 Constitutional: Yes: Well Nourished, No Distress, Calm Cardiovascular: Yes: Regular Rate and Rhythm, S1, S2. No: Gallop, Murmur Respiratory: Yes: Regular, CTA Bilaterally. No: Accessory Muscle Use Extremities: No: Cold Edema: No Neurological: Yes: Alert, Oriented. No: Seizure Labs: CBC, BMP 05/17/20 10:50 05/17/20 08:55 Assessment/Plan ECG: NSR with PVC, APC. no ST-T abn, no q waves CXR: clear lungs chest pain: -chronic sx, sees outside cardio (Dr. Marcial, [facility]). sx's going on for long time, had stress test approx 2 mo ago per dtr, they were told it was fine (results not currently available). -history equivocal for whether or not was truly nitro-responsive. -on exam, she is very tender over the area, but not quite reproduces sx's. -trop x 2 neg, ecg non-ischemic. -suspect mskel > anginal etiology, but clinical picture uncertain. -given recent stress test normal, repeat stress testing is not indicated here. reasonable to image coronaries with CCTA as outpatient. d/w'd Dr. Marcial, pt's gut puller, who agrees with plan to discharge if she remains stable and have pt call her at office on Wednesday to arrange for f/u and/or imaging. -clinically stable, no concerning sx's for ongoing cardiac ischemia. cardiac malcolm pt ok for discharge, should call Dr. Marcial to arrange CCTA. Afib: -sinus here -not on AVN blockers at home--no change -cont home Eliquis 2.5 bid (indicated dose is 5mg based on her wt/creatinine, however she is following with outside cardio hence will not change plan) HTN -bp controlled -cont losartan, HCTZ home regimen h/o TIA -on AC, statin at home--continue same h/o DVTs -AC per outside MDs' plan
--- NOTE | 2020-05-19 11:47 | PN ---
Progress Note (short form) - Note Progress Note: PULMONARY AWAKE/ALERT NO LONGER COMPLAINING OF CHEST PAIN RESTING COMFORTABLY HEAD CT NEGATIVE VSS/AFEBRILE Constitutional: Yes: No Distress, Anxious, Obese HENT: Yes: Atraumatic, Normocephalic Neck: Yes: Supple, Trachea Midline Cardiovascular: Yes: Regular Rate and Rhythm. No: Varicosities Respiratory: Yes: Cough, Diminished, Rhonchi, SOB, SOB on Exertion. No: Rales, Stridor, Tachypnea, Wheezes ...Inspection: Yes: WNL ...Clubbing: No Gastrointestinal: Yes: Normal Bowel Sounds, Soft, Abdomen, Obese Renal/: Yes: WNL Musculoskeletal: Yes: WNL Extremities: Yes: WNL Edema: No Peripheral Pulses WNL: Yes Integumentary: Yes: WNL Neurological: Yes: WNL, Alert, Oriented ...Motor Strength: WNL Psychiatric: Yes: WNL, Alert, Oriented Chest X-ray: Report Reviewed, Image Reviewed Cat Scan: Report Reviewed, Image Reviewed Labs reviewed Problem List - Problems (1) Chest pain Code(s): R07.9 - CHEST PAIN, UNSPECIFIED Qualifiers: Chest pain type: unspecified Qualified Code(s): R07.9 - Chest pain, unspecified (2) Acute bronchitis Code(s): J20.9 - ACUTE BRONCHITIS, UNSPECIFIED Qualifiers: Bronchitis organism: unspecified organism Qualified Code(s): J20.9 - Acute bronchitis, unspecified (3) Acute exacerbation of mild persistent extrinsic asthma Code(s): J45.31 - MILD PERSISTENT ASTHMA WITH (ACUTE) EXACERBATION (4) Anxiety Code(s): F41.9 - ANXIETY DISORDER, UNSPECIFIED (5) Atypical chest pain Code(s): R07.89 - OTHER CHEST PAIN (6) Cough Code(s): R05 - COUGH (7) Hypertension Code(s): I10 - ESSENTIAL (PRIMARY) HYPERTENSION (8) Hypothyroid Code(s): E03.9 - HYPOTHYROIDISM, UNSPECIFIED (9) Paroxysmal A-fib Code(s): I48.0 - PAROXYSMAL ATRIAL FIBRILLATION (10) Hyperlipemia Code(s): E78.5 - HYPERLIPIDEMIA, UNSPECIFIED Qualifiers: Hyperlipidemia type: pure hypercholesterolemia Qualified Code(s): E78.00 - Pure hypercholesterolemia, unspecified (11) Hypertension Code(s): I10 - ESSENTIAL (PRIMARY) HYPERTENSION Qualifiers: Hypertension type: essential hypertension Qualified Code(s): I10 - Essential (primary) hypertension (12) Hypothyroidism Code(s): E03.9 - HYPOTHYROIDISM, UNSPECIFIED Qualifiers: Hypothyroidism type: unspecified Qualified Code(s): E03.9 - Hypothyroidism, unspecified (13) Moderate aortic stenosis Code(s): I35.0 - NONRHEUMATIC AORTIC (VALVE) STENOSIS (14) Seizure disorder Code(s): G40.909 - EPILEPSY, UNSP, NOT INTRACTABLE, WITHOUT STATUS EPILEPTICUS (15) Type 2 diabetes mellitus Code(s): E11.9 - TYPE 2 DIABETES MELLITUS WITHOUT COMPLICATIONS Qualifiers: Diabetes mellitus long distance operator insulin use: without [place] use Diabetes mellitus complication status: without complication Qualified Code(s): E11.9 - Type 2 diabetes mellitus without complications (16) Chest pain Code(s): R07.9 - CHEST PAIN, UNSPECIFIED Qualifiers: Chest pain type: unspecified Qualified Code(s): R07.9 - Chest pain, unspecified (17) Dyspnea and respiratory abnormalities Code(s): R06.00 - DYSPNEA, UNSPECIFIED; R06.89 - OTHER ABNORMALITIES OF BREATHING (18) Shortness of breath Code(s): R06.02 - SHORTNESS OF BREATH Taper prednisone Bronchodilators as ordered Glycemic control O2 Will follow. Tammy CONNOR MD
[2020-05-19] MEDS: ACETAMINOPHEN 325 MG TABLET (FP) PO PRN ×2 (14:17→21:36)
--- NOTE | 2020-05-19 14:20 | PN ---
Progress Note (short form) - Note Progress Note: SOB less feeling better Vitals stable Laboratory Results - last 24 hr 05/17/20 05/17/20 05/17/20 08:55 10:50 16:52 WBC 17.5 H RBC 4.69 Hgb 13.0 Hct 40.5 MCV 86.4 MCH 27.8 MCHC 32.1 RDW 16.8 H Plt Count 156 MPV 9.2 Absolute Neuts (auto) 16.3 H Neutrophils % 93.1 H Neutrophils % (Manual) 92.1 H Band Neutrophils % 0.0 Lymphocytes % 1.8 L D Lymphocytes % (Manual) 3.9 L D Monocytes % 4.9 D Monocytes % (Manual) 3 L Eosinophils % 0.1 D Eosinophils % (Manual) 0.0 Basophils % 0.1 Basophils % (Manual) 0.0 Myelocytes % (Man) 0 Promyelocytes % (Man) 0 Blast Cells % (Manual) 0 Nucleated RBC % 0 Metamyelocytes 1 D Hypochromia 1+ Platelet Estimate Normal Polychromasia 0 Poikilocytosis 0 Anisocytosis 1+ Microcytosis 1+ Macrocytosis 0 Sodium 139 Potassium 4.3 Chloride 100 Carbon Dioxide 28 Anion Gap 10 BUN 34.0 H Creatinine 0.9 Est GFR (CKD-EPI)AfAm 69.99 Est GFR (CKD-EPI)NonAf 60.39 POC Glucometer 391 Random Glucose 296 H Calcium 8.6 Total Bilirubin 1.0 AST 32 ALT 79 H Alkaline Phosphatase 79 Total Protein 5.3 L Albumin 2.8 L 05/17/20 05/18/20 21:39 05:43 WBC RBC Hgb Hct MCV MCH MCHC RDW Plt Count MPV Absolute Neuts (auto) Neutrophils % Neutrophils % (Manual) Band Neutrophils % Lymphocytes % Lymphocytes % (Manual) Monocytes % Monocytes % (Manual) Eosinophils % Eosinophils % (Manual) Basophils % Basophils % (Manual) Myelocytes % (Man) Promyelocytes % (Man) Blast Cells % (Manual) Nucleated RBC % Metamyelocytes Hypochromia Platelet Estimate Polychromasia Poikilocytosis Anisocytosis Microcytosis Macrocytosis Sodium Potassium Chloride Carbon Dioxide Anion Gap BUN Creatinine Est GFR (CKD-EPI)AfAm Est GFR (CKD-EPI)NonAf POC Glucometer 237 230 Random Glucose Calcium Total Bilirubin AST ALT Alkaline Phosphatase Total Protein Albumin S1 S2 RRR Lungs end-expiratory wheezing decreased Abd- soft, obese, NT No edema PLAN paranoid anxiety COPD - -- continue with PO prednisone--taper --nebs O2 stable on Abilify continue with meds COVID negative discharge planning Problem List - Problems (1) SOB (shortness of breath) Code(s): R06.02 - SHORTNESS OF BREATH (2) Acute bronchitis Code(s): J20.9 - ACUTE BRONCHITIS, UNSPECIFIED Qualifiers: Bronchitis organism: unspecified organism Qualified Code(s): J20.9 - Acute bronchitis, unspecified (3) Acute exacerbation of mild persistent extrinsic asthma Code(s): J45.31 - MILD PERSISTENT ASTHMA WITH (ACUTE) EXACERBATION (4) Anxiety Code(s): F41.9 - ANXIETY DISORDER, UNSPECIFIED (5) Atypical chest pain Code(s): R07.89 - OTHER CHEST PAIN
[2020-05-19] MEDS: ATORVASTATIN CA 20 MG TABLET (FP) PO SCH (21:36)
[2020-05-19] MEDS: MONTELUKAST NA 10 MG TABLET PO SCH (21:36)
[2020-05-19] MEDS: INSULIN (LEVEMIR) 100 UNITS/ML UNITS SQ SCH (21:39)
[2020-05-20] MEDS: ALBUTEROL SO4 0.083% IH SOL 2.5 MG/3 ML VIAL.NEB. NEB SCH ×5 (00:16→15:57)
[2020-05-20] MEDS: LEVOTHYROXINE NA 25 MCG TABLET (FP) PO SCH (06:06)
[2020-05-20] MEDS: PANTOPRAZOLE 40 MG TABLET PO SCH (06:07)
[2020-05-20] MEDS: INSULIN SLIDING SCALE (NOVOLOG) 1 VIAL SQ SCH ×2 (06:07→16:25)
[2020-05-20 08:54] LABS: HEMATOCRIT 42.2 % (32.4-45.2); HEMOGLOBIN 13.5 GM/dL (10.7-15.3); MCH 27.5 pg (25.7-33.7); MEAN PLT VOLUME 9.8 fl (7.5-11.1); PLATELET COUNT 152 K/MM3 (134-434); RBC 4.91 M/mm3 (3.60-5.2); RDW 16.5 % (11.6-15.6); WHITE BLOOD COUNT 16.8 K/mm3 (4.0-10.0)
[2020-05-20 09:25] LABS: ALBUMIN 2.9 g/dl (3.4-5.0); BILIRUBIN,TOTAL 1.3 mg/dL (0.2-1); BLOOD UREA NITROGEN 25.4 mg/dL (7-18); CALCIUM 8.6 mg/dL (8.5-10.1); CREATININE 0.7 mg/dL (0.55-1.3); POTASSIUM 4.6 mmol/L (3.5-5.1); TOT PROT 5.5 g/dl (6.4-8.2)
[2020-05-20] MEDS: HYDROCHLOROTHIAZIDE 25 MG TABLET (FP) PO SCH (09:42)
[2020-05-20] MEDS: LOSARTAN POTASSIUM 50 MG TABLET (FP) PO SCH (09:42)
[2020-05-20] MEDS: ARIPiprazole 5 MG TABLET PO SCH (09:42)
[2020-05-20] MEDS: levETIRAcetam 250 MG TABLET PO SCH (09:42)
[2020-05-20] MEDS: APIXABAN 2.5 MG TABLET PO SCH (09:42)
[2020-05-20] MEDS: predniSONE 20 MG TABLET (UD) PO SCH (09:43)
[2020-05-20] MEDS: FLUTICASONE PROP 0.05% 16 GM NASAL SPRAY NS SCH (09:43)
[2020-05-20] MEDS: BUDESONIDE/FORMETEROL FUMARATE 160/4.5 mcg INHALER IH SCH (09:43)
--- NOTE | 2020-05-20 11:39 | PN ---
Progress Note (short form) - Note Progress Note: Chief Complaint: cp History of Present Illness: no cp sob palps dizzy Current Medications Generic Name Dose Route Start Last Admin Trade Name Freq PRN Reason Stop Dose Admin Acetaminophen 650 mg 05/13/20 20:18 05/19/20 21:36 Tylenol - PO 650 mg Q6H PRN Administration PAIN LEVEL 6-10 Albuterol Sulfate 1 amp 05/14/20 16:00 05/20/20 11:29 Ventolin 0.083% Nebulizer Soln - NEB 1 amp RQ4H LUIZA Administration Albuterol Sulfate 2 puff 05/14/20 20:29 Ventolin Hfa Inhaler - IH Q4H PRN SHORT OF BREATH/WHEEZING Apixaban 2.5 mg 05/14/20 22:00 05/20/20 09:42 Eliquis - PO 2.5 mg BID LUIZA Administration Aripiprazole 5 mg 05/17/20 10:00 05/20/20 09:42 Abilify PO 5 mg DAILY LUIZA Administration Atorvastatin Calcium 20 mg 05/14/20 22:00 05/19/20 21:36 Lipitor - PO 20 mg HS LUIZA Administration Budesonide/Formoterol Fumarate 1 puff 05/14/20 22:00 05/20/20 09:43 Symbicort 160/4.5mcg - IH 1 puff BID LUIZA Administration Fluticasone Propionate 2 spray 05/16/20 12:15 05/20/20 09:43 Flonase - NS 2 sprays DAILY LUIZA Administration Guaifenesin 10 ml 05/14/20 20:29 05/19/20 21:37 Robitussin - PO 10 ml Q6H PRN Administration CONGESTION Hydrochlorothiazide 25 mg 05/15/20 10:00 05/20/20 09:42 Hctz - PO 25 mg DAILY LUIZA Administration Insulin Aspart 1 vial 05/15/20 07:00 05/20/20 06:07 Novolog Vial Sliding Scale - SQ 3 units BIDAC LUIZA Administration Protocol Insulin Detemir 8 units 05/17/20 22:00 05/19/20 21:39 Levemir Vial SQ 8 units HS LUIZA Administration Levetiracetam 750 mg 05/14/20 22:00 05/20/20 09:42 Keppra - PO 750 mg BID LUIZA Administration Levothyroxine Sodium 12.5 mcg 05/16/20 12:33 05/20/20 06:06 Synthroid - PO 12.5 mcg ACBK LUIZA Administration Losartan Potassium 100 mg 05/15/20 10:00 05/20/20 09:42 Cozaar - PO 100 mg DAILY LUIZA Administration Meclizine HCl 25 mg 05/14/20 20:29 05/19/20 14:17 Antivert - PO 25 mg BID PRN Administration dizziness Montelukast Sodium 10 mg 05/14/20 22:00 05/19/20 21:36 Singulair - PO 10 mg HS LUIZA Administration Pantoprazole Sodium 40 mg 05/15/20 07:00 05/20/20 06:07 Protonix - PO 40 mg ACBK LUIZA Administration Prednisone 40 mg 05/18/20 10:00 05/20/20 09:43 Deltasone - PO 40 mg BID LUIZA Administration Vital Signs Period Temp Pulse Resp BP Sys/Sexton Pulse Ox Last 24 Hr 97.9 F-98.4 F 76-98 20-20 130-140/73-86 99-100 Constitutional: Yes: Well Nourished, No Distress, Calm Cardiovascular: Yes: Regular Rate and Rhythm, S1, S2. No: Gallop, Murmur Respiratory: Yes: Regular, CTA Bilaterally. No: Accessory Muscle Use Extremities: No: Cold Edema: No Neurological: Yes: Alert, Oriented. No: Seizure Labs: CBC, BMP 05/20/20 07:25 05/20/20 07:25 Assessment/Plan ECG: NSR with PVC, APC. no ST-T abn, no q waves CXR: clear lungs chest pain: -chronic sx, sees outside cardio (Dr. Marcial, [facility]). sx's going on for long time, had stress test approx 2 mo ago per dtr, they were told it was fine (results not currently available). -history equivocal for whether or not was truly nitro-responsive. -on exam, she is very tender over the area, but not quite reproduces sx's. -trop x 2 neg, ecg non-ischemic. -suspect mskel > anginal etiology, but clinical picture uncertain. -given recent stress test normal, repeat stress testing is not indicated here. reasonable to image coronaries with CCTA as outpatient. d/w'd Dr. 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 -clinically stable, no concerning sx's for ongoing cardiac ischemia. cardiac malcolm pt ok for discharge, should call Dr. Marcial to arrange CCTA. Afib: -sinus here -not on AVN blockers at home--no change -cont home Eliquis 2.5 bid (indicated dose is 5mg based on her wt/creatinine, however she is following with outside cardio hence will not change plan) HTN -bp controlled -cont losartan, HCTZ home regimen h/o TIA -on AC, statin at home--continue same h/o DVTs -AC per outside MDs' plan
--- NOTE | 2020-05-20 11:50 | DS ---
Physical Examination Vital Signs: Vital Signs Temperature 98.4 F 05/20/20 05:13 Pulse Rate 76 05/20/20 05:13 Respiratory Rate 20 05/20/20 09:00 Blood Pressure 130/86 05/20/20 05:13 O2 Sat by Pulse Oximetry (%) 100 05/20/20 09:00 Findings/Remarks: pt seen/ examined chart reviewed awake/ comfortable no distress eating lunch wants to go home breathing not laboured Constitutional: Yes: No Distress, Calm Neck: Yes: Supple Cardiovascular: Yes: Regular Rate and Rhythm Respiratory: Yes: CTA Bilaterally Gastrointestinal: Yes: Soft Edema: No Neurological: Yes: Alert Psychiatric: Yes: Alert Labs: CBC, BMP 05/20/20 07:25 05/20/20 07:25 Discharge Summary Problems reviewed: Yes Reason For Visit: TYPE 2 DIABETES MELLITUS, HYPERLIPIDEMIA, ATYPICAL Current Active Problems Chest pain (Acute) SOB (shortness of breath) (Acute) Hospital Course: Pt with extensive PMHX as documented admitted for sob/ Asthma exac treated with steroids Pulmonary followed Slow recovery much better now Also Started on abilify by Psych for Psych issues will d.c home today with close f/u with her pmd Meds reconcilled Prescribed as needed . d/w Rn also time spend approx 35 min --- documenting / discussing and coordating care Condition: Stable - Instructions Referrals: Vasquez Abbott MD [Primary Care Provider] - Disposition: HOME - Home Medications Comprehensive Discharge Medication List: Ambulatory Orders Levothyroxine [Synthroid -] 25 mcg PO DAILY 04/15/17 Losartan/Hydrochlorothiazide [Losartan-Hctz 100-25 mg Tab] 1 each PO DAILY 04/15/17 Simvastatin 40 mg PO HS 06/13/17 Apixaban [Eliquis] 2.5 mg PO BID 06/11/19 levETIRAcetam [Keppra -] 750 mg PO BID 08/12/19 Benzonatate 200 mg PO BID PRN 08/13/19 Meclizine HCl [Antivert -] 25 mg PO BID PRN 08/13/19 Albuterol 0.083% Nebulizer Prabha [Ventolin 0.083% Nebulizer Soln -] 1 amp NEB Q4H PRN amp 08/21/19 Montelukast Na [Singulair -] 10 mg PO HS #1 tablet 10/21/19 Budesonide/Formeterol Fumarate [SYMBICORT 160/4.5mcg -] 1 inh PO BID #1 cannister 12/12/19 Guaifenesin 100 mg PO Q4H PRN 04/02/20 Pantoprazole Sodium [Protonix -] 40 mg PO DAILY 30 Days #30 tablet.ec 04/08/20 Acetaminophen [Tylenol .Regular Strength -] 650 mg PO Q6H PRN tablet 05/20/20 Albuterol Sulfate Inhaler - [Ventolin HFA Inhaler -] 2 puff IH Q4H PRN inhaler 05/20/20 Aripiprazole [Abilify -] 5 mg PO DAILY 30 Days #30 tablet 05/20/20 Insulin (Levemir) [Levemir Vial] 8 units SQ HS units 05/20/20 predniSONE [Deltasone -] 20 mg PO DAILY #60 tablet 05/20/20
[2020-05-20 13:42] VITALS: BP 124/63; PULSE 91; TEMP 98
== END 2020-05-20 18:01 | disposition home or self-care (01) | DRG 203 ==
LOC: JER 02:15 → JERBED 05:26 → J4S 21:50 → OBSVTOIN 05-14 11:14 → J6S 05-14 20:27
PROVIDERS: ADMIT Internal Medicine; ATTEND Internal Medicine
DX: J45.31 Mild persistent asthma with (acute) exacerbation (principal); I48.0 Paroxysmal atrial fibrillation; J45.909 Unspecified asthma, uncomplicated; Z86.73 Personal history of transient ischemic attack (TIA), and cerebral infarction without residual deficits; Z86.718 Personal history of other venous thrombosis and embolism; Z88.0 Allergy status to penicillin; I35.0 Nonrheumatic aortic (valve) stenosis; E66.9 Obesity, unspecified; G40.909 Epilepsy, unspecified, not intractable, without status epilepticus; F41.9 Anxiety disorder, unspecified; E03.9 Hypothyroidism, unspecified; R07.89 Other chest pain; F22 Delusional disorders; J20.9 Acute bronchitis, unspecified; Z68.37 Body mass index [BMI] 37.0-37.9, adult
CPT/HCPCS: 36415; 36600; 70450-TC; 71045-TC-FY; 71275-TC; 80053; 82550; 82803; 82962; 83036; 83735; 83880; 84439; 84443; 84484; 85025; 85027; 93005; 93010; 94640; 97162-GP; 99285-25; G0378; J0131; Q9967; U0003

== ENCOUNTER 2020-06-16 13:52 | Emergency (ER) | payer BC, OTHER ==
--- OUTSIDE RECORDS SUMMARY | 2020-06-16 14:06 | XMS ---
:1940 Author Organization [facility] Support Name Relationship Address Phone RE, RETIRED Unavailable Unavailable Unavailable RE Unavailable Unavailable Unavailable JODI, CRUZ DAUGHTER [id number] [address] JODI, CRUZ Child [id number] [place] [address] Re-disclosure Warning The records that you are about to access may contain information from federally- assisted alcohol or drug abuse programs. If such information is present, then the following federally mandated warning applies: This information has been disclosed to you from records protected by federal confidentiality rules (42 CFR part 2). The federal rules prohibit you from making any further disclosure of this information unless further disclosure is expressly permitted by the written consent of the person to whom it pertains or as otherwise permitted by 42 CFR part 2. A general authorization for the release of medical or other information is NOT sufficient for this purpose. The Federal rules restrict any use of the information to criminally investigate or prosecute any alcohol or drug abuse patient.The records that you are about to access may contain highly sensitive health information, the redisclosure of which is protected by Article 27-F of the [facility] Public Health law. If you continue you may haveaccess to information: Regarding HIV / AIDS; Provided by facilities licensed or operated by the [facility] Office of Mental Health; or Provided by the [facility] Office for People With Developmental Disabilities. If such information is present, then the following [facility] mandated warning applies: This information has been disclosed to you from confidential records which are protected by state law. State law prohibits you from making any further disclosure of this information without the specific written consent of the person to whom it pertains, or as otherwise permitted by law. Any unauthorized further disclosure in violation of state law may result in a fine or detention sentence or both. A general authorization for the release of medical or other information is NOT sufficient authorization for further disclosure. Insurance Providers Payer name Policy type Policy ID Covered Covered democrat's Policy P phani / Coverage democrat ID relationship to [facility] type carey MARIANA UNDERWOOD [id number] SP [id number] SENIOR PLAN MEDICAID [id number] SP [id number] MARIANA UNDERWOOD [id number] SP [id number] SENIOR PLAN ABRIL MEDICARE [id number] SP [id number] MEDICARE [id number] SP [id number] ABRIL MEDICARE [id number] SP [id number] HUMANA GOLD [id number] SP [id number] PLUS PLAN HUMANA GOLD [id number] SP [id number] PLUS PLAN ABRIL MEDICARE [id number] SP [id number] MEDICARE [id number] SP [id number] SELF PAY INSURANCE HUMANA [id number] SP [id number] MEDICAL PLAN HUMANA GOLD [id number] SP [id number] PLUS PLAN HUMANA GOLD [id number] SP [id number] PLUS PLAN MEDICARE [id number] SP [id number] A AETNA [id number] SP [id number] MEDICARE AETNA [id number] SP [id number] MEDICARE COVENTRY MC [id number] SP [id number] Results ID Date Data Source [id number] 05/13/2020 02:16:00 PM EDT [facility] Name Value Range Interpretation Description Data Sup porting Code Source(s) Document(s ) SARS [facility] coronavirus 2 RNA This lab was ordered by [facility] and reported by [facility]. ID Date Data Source [id number] 04/02/2020 02:26:00 PM EDT [facility] Name Value Range Interpretation Description Data Sup porting Code Source(s) Document(s ) SARS [facility] coronavirus 2 RNA This lab was ordered by [facility] and reported by [facility]. Procedure
[2020-06-16 14:41] VITALS: TEMP 98.5; BMI 31.7
--- NOTE | 2020-06-16 14:48 | PDOC ---
History of Present Illness - General Chief Complaint: Shortness of Breath Stated Complaint: SOB Time Seen by Provider: 06/16/20 14:47 History Source: Patient, Other (daughter) - History of Present Illness Initial Comments: 06/16/20 14:47 HPI: The patient is an 79 y/o female who is non-ambulatory at baseline, with a PMH of asthma, COPD, AFib on eliquis, TIA, and bilateral DVT's BIBA to the ED for multiple complaints. The patient is complaining of a band like headache which radiates from the back of her head to her forehead. She has been having these headaches intermittently for months, but states that no one has been able to figure out how to treat them as an outpatient. She said she took tylenol this morning with no improvement. The headaches haven't changed from previous episodes. She is also complaining of shortness of breath which had resolved once she arrived in the ED. Her shortness of breath started this morning when she was laying in bed, and improved once she took her breathing treatment (Ventolin). The patient is a poor historian, but her daughter says she is short of breath at baseline. The shortness of breath was not accompanied by chest pain or pal pitations. She is also complaining of bilateral lower extremity edema earlier today, which improved with elevation of her legs. She is prescribed Lasix, but only takes it every few days because her doctor said it can cause hypokalemia. Patient is denying any chest pain, current shortness of breath, fever/chills, or abdominal pain. Patient has had no recent travel, no hx of PE's, and no focal ne urological deficits. ROS: Constitutional - Pt denies Fever, Chills, weakness HEENT: denies vision changes, sore throat Respiratory: Admits to SOB. Denies cough Cardiac: denies chest pain, palpitations, light headedness, Admits to bilateral leg swelling Abd/GI: denies abd pain, nausea, vomiting : denies dysuria, frequency Musculskelatal - denies back pain, joint swelling skin - denies bruising, erythema, rash neurological: Admits to sharp band like headache, Denies numbness, focal weakness, tingling, weakness hematologic: denies anemia, easy bruising. Patient is on blood thinners and has chronic bilateral DVT's PMH: asthma, COPD, AFib on eliquis, TIA, bilateral DVT's Social Hx: Denied etoh, tobacco Meds: See nurse note Allergies: Penicillins PE: GENERAL: The patient is awake, alert, and fully oriented, Nontoxic - in no acute distress. Laying in bed, ukrainian speaking, with her daughter in room. HEAD: Normocephalic, atraumatic. EYES: extraocular movements intact, sclera anicteric ENT: Normal voice, Moist mucous membranes. NECK: Normal range of motion, supple without lymphadenopathy, JVD, or masses. LUNGS: Breath sounds equal. Mild bilateral expiratory wheezing and bibasilar rales HEART: Tachycardic, irregular rhythm. ABDOMEN: Soft, nontender, normoactive bowel sounds. No guarding, no rebound. No masses. EXTREMITIES: Normal range of motion. 1+ edema bilaterally. No cords, erythema, or tenderness to palpation of calfs. NEUROLOGICAL: No facial asymmetry, Normal speech MDM: 06/16/20 14:47 The patient is an 79 y/o female not ambulatory at baseline with a PMH of asthma, COPD, AFib on eliquis, TIA, bilateral DVT's presenting to the ED for multiple complaints. - Complaining of SOB that began this morning and has since resolved. Denies chest pain. - Pt with mild bilateral expiratory wheezing and rales on exam - Will get CXR, give albuterol inhaler. - Due to complaint of shortness of breath, history of bilateral DVTs and HR of 109, will get a d-dimer to r/o PE. Patient saturating in high 90's on RA, no pleuritic chest pain, gradual onset it is more likely a COPD picture. - Will use age adjusted D-dimer - Will get BNP due to complaint of bilateral leg edema in the context of SOB, however patient is not very swollen. - CBC, CMP - Give age and risk factors will order a cardiac panel - Tylenol for pain control 06/16/20 17:15 - Patient reports improvement with albuterol inhaler. Requesting to go home. - Improvement in headache with tylenol. - Labs WNL - K 3.1, will replete - D-dimer is 618 which is WNL for her age 0906/16/20 17:49 - Patient still not SOB, headache is gone. - Will send a z-pac and medrol dose pack to pharmacy and have patient follow-up with her PCP Past History - Medical History Allergies/Adverse Reactions: Allergies Allergy/AdvReac Type Severity Reaction Status Date / Time Penicillins Allergy Swelling Verified 06/16/20 18:36 Home Medications: Ambulatory Orders Levothyroxine [Synthroid -] 25 mcg PO DAILY 04/15/17 Losartan/Hydrochlorothiazide [Losartan-Hctz 100-25 mg Tab] 1 each PO DAILY 04/15/17 Simvastatin 40 mg PO HS 06/13/17 Apixaban [Eliquis] 2.5 mg PO BID 06/11/19 levETIRAcetam [Keppra -] 750 mg PO BID 08/12/19 Benzonatate 200 mg PO BID PRN 08/13/19 Meclizine HCl [Antivert -] 25 mg PO BID PRN 08/13/19 Albuterol 0.083% Nebulizer Prabha [Ventolin 0.083% Nebulizer Soln -] 1 amp NEB Q4H PRN amp 08/21/19 Montelukast Na [Singulair -] 10 mg PO HS #1 tablet 10/21/19 Budesonide/Formeterol Fumarate [SYMBICORT 160/4.5mcg -] 1 inh PO BID #1 cannister 12/12/19 Guaifenesin 100 mg PO Q4H PRN 04/02/20 Pantoprazole Sodium [Protonix -] 40 mg PO DAILY 30 Days #30 tablet.ec 04/08/20 Acetaminophen [Tylenol .Regular Strength -] 650 mg PO Q6H PRN tablet 05/20/20 Albuterol Sulfate Inhaler - [Ventolin HFA Inhaler -] 2 puff IH Q4H PRN inhaler 05/20/20 Aripiprazole [Abilify -] 5 mg PO DAILY 30 Days #30 tablet 05/20/20 Insulin (Levemir) [Levemir Vial] 8 units SQ HS units 05/20/20 Albuterol 2.5/Ipratropium 0.5 [Duoneb -] 1 amp NEB QID PRN #60 amp 06/16/20 Azithromycin 250 mg PO DAILY #6 tablet 06/16/20 Methylprednisolone [Medrol Dose Bladimir] 4 mg PO ASDIR #21 tablet 06/16/20 Anemia: No Asthma: Yes Cancer: No Cardiac Disorders: Yes (AORTIC STENOSIS) CVA: Yes (tia) COPD: No CHF: No DVT: No Dementia: No Diabetes: Yes GI Disorders: Yes (ULCER, HERNIA) Disorders: No HTN: Yes Hypercholesterolemia: Yes Liver Disease: No Seizures: Yes Thyroid Disease: Yes - Surgical History Abdominal Surgery: No Appendectomy: No Cardiac Surgery: No Cholecystectomy: No Lung Surgery: No Neurologic Surgery: No Orthopedic Surgery: No - Immunization History Immunization Up to Date: Yes - Psycho-Social/Smoking History Smoking Status: No Smoking History: Never smoked Have you smoked in the past 12 months: No Number of Cigarettes Smoked Daily: 0 - Substance Abuse Hx (Audit-C & DAST Scrn) How often the patient has a drink containing alcohol: Never Score: In Men: 4 or > Positive; In Women: 3 or > Positive: 0 Screen Result (Pos requires Nsg. Audit-10AR): Negative In the last yr the pt used illegal drug/Rx for NonMed reason: No Score: Yes response is considered Positive: 0 Screen Result (Positive result requires Nsg. DAST-10): Negative *Physical Exam - Vital Signs Last Vital Signs Temp Pulse Resp BP Pulse Ox 98.5 F 105 H 22 H 123/62 94 L 06/16/20 14:00 06/16/20 14:00 06/16/20 14:00 06/16/20 14:00 06/16/20 14:00 Heart Score/ECG Review - ECG Intrepretation Comment:: 06/17/20 16:[address] elevations Sinus tachycardia premature supraventricular complexes and occasional PVCs Vent rate 110 06/17/20 16:03 ED Treatment Course - LABORATORY CBC & Chemistry Diagram: 06/16/20 16:30 06/16/20 16:30 Discharge - Discharge Information Problems reviewed: Yes Clinical Impression/Diagnosis: Shortness of breath Condition: Stable Disposition: HOME - Additional Discharge Information Prescriptions: Azithromycin 250 mg PO DAILY #6 tablet Albuterol 2.5/Ipratropium 0.5 [Duoneb -] 1 amp NEB QID PRN #60 amp PRN Reason: Shortness Of Breath Methylprednisolone [Medrol Dose Bladimir] 4 mg PO ASDIR #21 tablet - Follow up/Referral Referrals: Vasquez Abbott MD [Primary Care Provider] - - Patient Discharge Instructions Patient Printed Discharge Instructions: DI for Shortness of Breath Additional Instructions: You came to the ED because you were short of breath Your chest xray and labs were normal We gave you a breathing treatment and tylenol while you were here. Your shortness of breath and headache improved Please follow-up with your primary care doctor in the next few days Return to the ED with any new or worsening symptoms. Return if you experience chest pain, worsening shortness of breath, or a different kind of headache than youve had before. - Post Discharge Activity
[2020-06-16] MEDS ORDERED: ALBUTEROL SO4 HFA INHALER IH ONE ×2 (15:44→15:57)
[2020-06-16 16:42] LABS: BASO % 0.8 % (0-2.0); EOS % 0.6 % (0-4.5); HEMOGLOBIN 12.3 GM/dL (10.7-15.3); LYMPH % 18.8 % (8-40); MCH 28.7 pg (25.7-33.7); MCHC 32.3 g/dl (32.0-36.0); MEAN CELL VOLUME 88.9 fl (80-96); MEAN PLT VOLUME 9.2 fl (7.5-11.1); MONO % 8.4 % (3.8-10.2); NEUT % 71.4 % (42.8-82.8); PLATELET COUNT 252 K/MM3 (134-434); RBC 4.28 M/mm3 (3.60-5.2); RDW 16.9 % (11.6-15.6); WHITE BLOOD COUNT 9.6 K/mm3 (4.0-10.0)
[2020-06-16 17:20] LABS: ALK PHOS 89 U/L (45-117); ANION GAP 7 MMOL/L (8-16); BILIRUBIN,TOTAL 0.4 mg/dL (0.2-1); BLOOD UREA NITROGEN 16.5 mg/dL (7-18); CALCIUM 8.6 mg/dL (8.5-10.1); CHLORIDE 103 mmol/L (98-107); CO2 31 mmol/L (21-32); CREATININE 0.8 mg/dL (0.55-1.3); GLUCOSE,RANDOM 187 mg/dL (74-106); POTASSIUM 3.1 mmol/L (3.5-5.1); SGOT/AST 19 U/L (15-37); SGPT/ALT 21 U/L (13-61); SODIUM 141 mmol/L (136-145); TOT PROT 5.8 g/dl (6.4-8.2)
[2020-06-16] MEDS ORDERED: POTASSIUM CHLORIDE TABS 20 MEQ TABLET.ER (FP) PO ONE ×2 (17:24→17:56)
[2020-06-16 17:31] LABS: N-TERMINAL BNP 170.2 pg/ml (5-450)
[2020-06-16 18:07] VITALS: BP 133/63; PULSE 102
--- NOTE | 2020-06-17 11:04 | EKG ---
Test Reason : Blood Pressure : / mmHG Vent. Rate : 110 BPM Atrial Rate : 110 BPM P-R Int : 136 ms QRS Dur : 072 ms QT Int : 328 ms P-R-T Axes : 083 001 -03 degrees QTc Int : 443 ms SINUS TACHYCARDIA WITH PREMATURE SUPRAVENTRICULAR COMPLEXES AND WITH OCCASIONAL PREMATURE VENTRICULAR COMPLEXES VS. MAT ABNORMAL ECG WHEN COMPARED WITH ECG OF 11-MAY-2020 02:35, T WAVE VARIATION Confirmed by SELENA GUAJARDO MD ([id number]) on 06/17/2020 11:04:35 AM Referred By: Confirmed By:SELENA GUAJARDO MD
--- NOTE | 2020-06-18 07:35 | PDOC ---
Documentation entered by Sharyn Ingram SCRIBE, acting as scribe for Lorna Orozco MD. Lorna Orozco MD: This documentation has been prepared by the leenaeJuan Jose Sydney, SCRIBE, under my direction and personally reviewed by me in its entirety. I confirm that the documentation accurately reflects all work, treatment, procedures, and medical decision making performed by me. Attending Attestation - Resident Resident Name: Michelle Ramirez - ED Attending Attestation I have performed the following: I have examined & evaluated the patient, The case was reviewed & discussed with the resident, I agree w/resident's findings & plan, Exceptions are as noted - HPI HPI: 06/16/20 17:38 Patient is a 79 year old female not ambulatory at baseline with a significant past medical history of asthma, COPD, AFib on eliquis, TIA, bilateral DVT's who presents to the ED with headache and shortness of breath. Patient is a poor historian. As per patient, she has a band-like headache which wraps around her head and shortness of breath that began this morning, prompting her to take her Ventolin and has since resolved in the ED . She reports having similar headaches for months, where her previous evaluations have been unable to resolve her symptoms. Patient reports taking tylenol for her headache with no improvement. Patient also reports bilateral LE edema, improved with elevation. Denies fever, chills, chest pain, abdominal pain, nausea, vomiting, diarrhea, or urinary changes. Allergies: Penicillins PCP: Dr. Abbott - Physicial Exam PE: GENERAL: Awake, alert, and fully oriented, in no acute distress. Appears anxious. HEAD: No signs of trauma EYES: PERRLA, EOMI, sclera anicteric, conjunctiva clear ENT: Auricles normal inspection, hearing grossly normal, nares patent, oropharynx clear without exudates. Moist mucosa NECK: Normal ROM, supple, no lymphadenopathy, JVD, or masses LUNGS: Mildly dec air entry B/L, clear to auscultation bilaterally. No wheezes, and no crackles HEART: Tachycardic with regular rhythm, normal S1 and S2, no murmurs, rubs or gallops ABDOMEN: Soft, nontender, normoactive bowel sounds. No guarding, no rebound. No masses EXTREMITIES: Normal range of motion, 1+ pitting edema to mid-lindo B/L. No clubbing or cyanosis. No cords, erythema, or tenderness NEUROLOGICAL: Cranial nerves II through XII grossly intact. Normal speech. Motor and sensation intact SKIN: Warm, dry, normal turgor, no rashes or lesions noted. - Medical Decision Making Pt with history of multiple DVTs (2 at one time in [place], "years ago", unknown inciting factor, as well as 1 in [place], also years ago), COPD presenting with SOB and tachycardia, improved with albuterol. As per daughter at bedside, patient has been progressively more short of breath over time, bedbound for the most part due to her COPD, unable to do ADLs. Will obtain labs. As COPD is the most likely reason for the symptoms, PE is considered unlikely. However, in light of her history, will check D-dimer and consider CTA chest. Discharge - Discharge Information Problems reviewed: Yes Clinical Impression/Diagnosis: Shortness of breath Condition: Stable Disposition: HOME - Additional Discharge Information Prescriptions: Azithromycin 250 mg PO DAILY #6 tablet Albuterol 2.5/Ipratropium 0.5 [Duoneb -] 1 amp NEB QID PRN #60 amp PRN Reason: Shortness Of Breath Methylprednisolone [Medrol Dose Bladimir] 4 mg PO ASDIR #21 tablet - Follow up/Referral Referrals: Vasquez Abbott MD [Primary Care Provider] - - Patient Discharge Instructions Patient Printed Discharge Instructions: DI for Shortness of Breath Additional Instructions: You came to the ED because you were short of breath Your chest xray and labs were normal We gave you a breathing treatment and tylenol while you were here. Your shortness of breath and headache improved Please follow-up with your primary care doctor in the next few days Return to the ED with any new or worsening symptoms. Return if you experience chest pain, worsening shortness of breath, or a different kind of headache than youve had before. - Post Discharge Activity
== END 2020-06-16 18:42 | disposition home or self-care (01) ==
LOC: JER 13:52
DX: R06.02 Shortness of breath (principal)
CPT/HCPCS: 36415; 80053; 82550; 83880; 84484; 85025; 85379; 93005; 93010; 99284-25

== ENCOUNTER 2020-06-22 12:00 | Inpatient (IN) | payer BC, OTHER ==
--- OUTSIDE RECORDS SUMMARY | 2020-06-22 12:22 | XMS ---
:1940 Author Organization [facility] Support Name Relationship Address Phone RE, RETIRED Unavailable Unavailable Unavailable RE Unavailable Unavailable Unavailable JODI, CRUZ DAUGHTER [address] [facility] [address] ([address]) [place] [address] JODI, CRUZ Child [address] [place] [address] Re-disclosure Warning The records that you are [...] is protected by Article 27-F of the [facility] Public Health law. If you continue you may haveaccess to information: Regarding HIV / AIDS; Provided by facilities licensed or operated by the [facility] Office of Mental Health; or Provided by the [facility] Office for People With Developmental Disabilities. If such information is present, then the following [facility] mandated warning applies: This information has [...] law may result in a fine or alf sentence or both. A general authorization for the release of medical or other information is NOT sufficient authorization for further disclosure. Insurance Providers Payer name Policy type Policy ID Covered Covered libertarian's Policy P phani / Coverage libertarian ID relationship to [facility] type carey MARIANA UNDERWOOD [id number] SP [id number] SENIOR PLAN MEDICAID [id number] SP [id number] ABRIL MEDICARE [id number] SP [id number] MARIANA CROSS [id number] SP [id number] SENIOR PLAN MEDICARE [id number] SP [id number] ABRIL MEDICARE [id number] SP [id number] HUMANA GOLD [id number] SP [id number] PLUS PLAN HUMANA GOLD [id number] SP [id number] PLUS PLAN ABRIL MEDICARE [id number] SP [id number] MEDICARE [id number] SP [id number] SELF PAY INSURANCE HUMANA [id number] SP [id number] MEDICAL PLAN HUMANA GOLD [id number] SP [id number] PLUS PLAN HUMANA GOLD [id number] SP [id number] PLUS PLAN MEDICARE [id number] SP [id number] A AETNA [id number] SP [id number] MEDICARE AETNA [id number] SP [id number] MEDICARE [place] MC [id number] SP [id number] Results ID Date Data Source [id number] 05/13/2020 02:16:00 PM EDT [facility] Name Value Range Interpretation Description Data Sup porting Code Source(s) Document(s ) SARS [facility] coronavirus 2 RNA This lab was ordered by [facility] and reported by [facility]. ID Date Data Source [id number] 04/02/2020 02:26:00 PM EDT [facility] Name Value Range Interpretation Description Data Sup porting Code Source(s) Document(s ) SARS [facility] coronavirus 2 RNA This lab was ordered by [facility] and reported by [facility]. Procedure
[2020-06-22] MEDS ORDERED: ACETAMINOPHEN 500 MG TABLET (FP) PO ONE (13:35)
[2020-06-22] MEDS ORDERED: ACETAMINOPHEN 500 MG TABLET (FP) ONE (13:51)
--- NOTE | 2020-06-22 13:53 | PDOC ---
History of Present Illness - General Chief Complaint: Congestive Heart Failure Stated Complaint: SOB Time Seen by Provider: 06/22/20 13:01 History Source: Patient Exam Limitations: No Limitations - History of Present Illness Initial Comments: 06/22/20 13:49 79F with PMH of HTN, DM, hypothyroid, asthma, COPD, Afib (on apixaban), TIA, bilateral DVTs presents to the ED with left sided headache which started about 3 days ago, is constant since. She has a hx/o band-like headaches at forehead. She had 1 episode of vertigo (described as the "world spinning"), a few episodes of "blacked out vision". She also complains of SOB, but has not worsened from baseline. Reports worsening LE edema bilaterally over the past week. Reports orthopnea. Denies cp, nvdc, paresthesia. PMH: as in HPI SH: see below Meds: see med list Allergies: PCN Sales Service Route Manager: Ismael (phone architect intern) ROS GENERAL/CONSTITUTIONAL: No fever or chills. No weakness. HEENT: No change in vision. No ear pain or discharge. No sore throat. CARDIOVASCULAR: No chest pain; +shortness of breath RESPIRATORY: +cough, wheezing; no hemoptysis. GASTROINTESTINAL: No nausea, vomiting, diarrhea or constipation. GENITOURINARY: No dysuria, frequency, or change in urination. MUSCULOSKELETAL: No joint or muscle swelling or pain. No neck or back pain. SKIN: No rash NEUROLOGIC: +headache, no vertigo, loss of consciousness, or change in strength/sensation. ENDOCRINE: No increased thirst. No abnormal weight change HEMATOLOGIC/LYMPHATIC: No anemia, easy bleeding, or history of blood clots. ALLERGIC/IMMUNOLOGIC: No hives or skin allergy. PE GENERAL: Awake, alert, and fully oriented; no acute distress HEAD: No signs of trauma, normocephalic, atraumatic; erythema posterior left ear/mastoid w/o swelling EYES: PERRLA, EOMI, sclera anicteric, conjunctiva clear ENT: Auricles normal inspection, hearing grossly normal, nares patent, moist mucosa, oropharynx clear without exudates. TMs clear. NECK: Normal ROM, supple, no LAD, JVD, or masses HEART: Regular rate and rhythm, normal S1/S2, no murmurs, rubs or gallops, peripheral pulses normal and equal bilaterally. 2+ pitting edema LE bilaterally LUNGS: Mildly tachypnic, speaks full sentences w/o difficulty, wheezes bl w/o rales ABDOMEN: Soft, nontender. No guarding, no rebound. No masses EXTREMITIES: Normal inspection, Normal range of motion, no edema. No clubbing or cyanosis. NEUROLOGICAL: CNII-XII grossly intact. Normal speech, no focal sensorimotor deficits SKIN: Warm, Dry, normal turgor, no rashes or lesions noted Assessment and Plan 1. HF 2. mastoiditis 3. r/o intracranial pathology Juan Michel, PGY1 Emergency Medicine Past History - Medical History Allergies/Adverse Reactions: Allergies Allergy/AdvReac Type Severity Reaction Status Date / Time Penicillins Allergy Swelling Verified 06/22/20 12:36 Home Medications: Ambulatory Orders Levothyroxine [Synthroid -] 25 mcg PO DAILY 04/15/17 Losartan/Hydrochlorothiazide [Losartan-Hctz 100-25 mg Tab] 1 each PO DAILY 04/15/17 Simvastatin 40 mg PO HS 06/13/17 Apixaban [Eliquis] 2.5 mg PO BID 06/11/19 levETIRAcetam [Keppra -] 750 mg PO BID 08/12/19 Meclizine HCl [Antivert -] 25 mg PO BID PRN 08/13/19 Albuterol 0.083% Nebulizer Prabha [Ventolin 0.083% Nebulizer Soln -] 1 amp NEB Q4H PRN amp 08/21/19 Montelukast Na [Singulair -] 10 mg PO HS #1 tablet 10/21/19 Pantoprazole Sodium [Protonix -] 40 mg PO DAILY 30 Days #30 tablet.ec 04/08/20 Albuterol Sulfate Inhaler - [Ventolin HFA Inhaler -] 2 puff IH Q4H PRN inhaler 05/20/20 Insulin (Levemir) [Levemir Vial] 8 units SQ HS units 05/20/20 Methylprednisolone [Medrol Dose Bladimir] 4 mg PO ASDIR #21 tablet 06/16/20 Fluticasone/Salmeterol [Advair Hfa 115-21 Mcg Inhaler] 0 inh PO BID 06/22/20 Folic Acid 1 mg PO DAILY 06/22/20 Furosemide [Lasix] 40 mg PO DAILY 06/22/20 Insulin Aspart [Novolog] 8 unit SQ AM 06/22/20 Spironolactone 0 mg PO DAILY 06/22/20 Anemia: No Asthma: Yes Cancer: No Cardiac Disorders: Yes (AORTIC STENOSIS) CVA: Yes (tia) COPD: No CHF: No DVT: No Dementia: No Diabetes: Yes GI Disorders: Yes (ULCER, HERNIA) Disorders: No HTN: Yes Hypercholesterolemia: Yes Liver Disease: No Seizures: Yes Thyroid Disease: Yes - Surgical History Abdominal Surgery: No Appendectomy: No Cardiac Surgery: No Cholecystectomy: No Lung Surgery: No Neurologic Surgery: No Orthopedic Surgery: No - Immunization History Immunization Up to Date: Yes - Psycho-Social/Smoking History Smoking Status: No Smoking History: Never smoked Have you smoked in the past 12 months: No Number of Cigarettes Smoked Daily: 0 - Substance Abuse Hx (Audit-C & DAST Scrn) How often the patient has a drink containing alcohol: Never Score: In Men: 4 or > Positive; In Women: 3 or > Positive: 0 Screen Result (Pos requires Nsg. Audit-10AR): Negative In the last yr the pt used illegal drug/Rx for NonMed reason: No Score: Yes response is considered Positive: 0 Screen Result (Positive result requires Nsg. DAST-10): Negative *Physical Exam - Vital Signs Last Vital Signs Temp Pulse Resp BP Pulse Ox 97.1 F L 97 H 31 H 144/126 H 98 06/22/20 12:05 06/22/20 13:00 06/22/20 13:00 06/22/20 13:00 06/22/20 13:00 ED Treatment Course - LABORATORY CBC & Chemistry Diagram: 06/22/20 14:05 06/22/20 14:05 Medical Decision Making - Medical Decision Making 06/22/20 14:02 79F with PMH of HTN, CHF, DM, hypothyroid, asthma, COPD, Afib (on apixaban), TIA, bilateral DVTs presents to the ED with left sided ROLLINS. -Pt had left sided mastoid process tenderness/erythema -> although TMs clear and afebrile, will get temporal bone CT to eval for mastoiditis -Bilateral LE pitting edema, wheezes, sob, cough -> BNP to assess for HF exacerbation -> BNP wnl, but clinically, pt has had worsening LE edema, with orthopnea, and cough -> will likely need admission or diuresis and echo -PE considered, with moderate risk Well's score (tachypnic, tachycardic), but sob is chronic, more likely CHF vs COPD, she's not hypoxic on RA, worked up for it in most recent ED visit with negative d-dimer. No further w/up necessary at this time. -Bilateral diffuse wheezes w/o rales -> duoneb 06/22/20 14:31 -CBC showed mild leukocytosis @ 12.9, otherwise unremarkable -BUN mildly elevated, otherwise CMP wnl -CXR: sharp angles, no infiltrate, increased central markings 06/22/20 19:04 -Head CT neg, temporal bone CT neg for mastoiditis -will admit to tele/obs for new onset HF workup Discharge - Discharge Information Problems reviewed: Yes Clinical Impression/Diagnosis: Heart failure Qualifiers: Heart failure type: unspecified Heart failure chronicity: unspecified Qualified Code(s): I50.9 - Heart failure, unspecified Condition: Stable - Admission Yes - Follow up/Referral Referrals: Vasquez Abbott MD [Primary Care Provider] - - Patient Discharge Instructions - Post Discharge Activity
[2020-06-22] MEDS ORDERED: ALBUTEROL SO4 2.5/IPRATROPIUM 0.5 INH SOL 3 ML VIAL.NEB. NEB ONE (14:10)
[2020-06-22] MEDS: ALBUTEROL SO4 2.5/IPRATROPIUM 0.5 INH SOL 3 ML VIAL.NEB. NEB SCH ×3 (14:12→14:44)
[2020-06-22 14:17] LABS: BASO % 0.5 % (0-2.0); EOS % 0.4 % (0-4.5); HEMATOCRIT 37.4 % (32.4-45.2); HEMOGLOBIN 11.9 GM/dL (10.7-15.3); LYMPH % 7.4 % (8-40); MCH 27.7 pg (25.7-33.7); MCHC 31.9 g/dl (32.0-36.0); MEAN CELL VOLUME 86.8 fl (80-96); MEAN PLT VOLUME 8.5 fl (7.5-11.1); NEUT % 87.7 % (42.8-82.8); PLATELET COUNT 233 K/MM3 (134-434); RBC 4.31 M/mm3 (3.60-5.2); WHITE BLOOD COUNT 12.9 K/mm3 (4.0-10.0)
[2020-06-22 14:41] LABS: ANISOCYTOSIS 0; MACROCYTOSIS 0; PLATELET ESTIMATE NORMAL
[2020-06-22 14:46] LABS: ALBUMIN 3.4 g/dl (3.4-5.0); BILIRUBIN,TOTAL 0.8 mg/dL (0.2-1); BLOOD UREA NITROGEN 33.9 mg/dL (7-18); CALCIUM 9.1 mg/dL (8.5-10.1); N-TERMINAL BNP 344.5 pg/ml (5-450); POTASSIUM 3.7 mmol/L (3.5-5.1); TOT PROT 6.2 g/dl (6.4-8.2)
--- NOTE | 2020-06-22 15:11 | PDOC ---
Documentation entered by Juan Perez SCRIBE, acting as scribe for Jon Zendejas MD. Jon Zendejas MD: This documentation has been prepared by the Chris stallings Aaron, SCRIBE, under my direction and personally reviewed by me in its entirety. I confirm that the documentation accurately reflects all work, treatment, procedures, and medical decision making performed by me. Attending Attestation - Resident Resident Name: Juan Michel - ED Attending Attestation I have performed the following: I have examined & evaluated the patient, The case was reviewed & discussed with the resident, I agree w/resident's findings & plan, Exceptions are as noted - HPI HPI: 06/22/20 13:50 The patient is a 79 year old female with a significant PMH of asthma, COPD, AFib on eliquis, TIA, and bilateral DVTs who presents to the emergency department for SOB, bilateral LE swelling, and headache since last week. Patient was seen at [facility] (06/16/20) a week ago for headache, SOB, and BLE edema. Pt had bloodwork and imaging and was DC'ed with instructions to f/u with PMD. Pt has not been able to f/u since that visit. Today, patient reports L-sided headache. Denies N/V. Denies neck pain. Pt also endorses SOB and mild swelling around her ankles. Patient denies chest pain, nausea, vomiting, diarrhea, or any other symptoms. Allergies: Penicillin PCP: Vasquez Abbott MD - Physicial Exam PE: 06/22/20 15:16 See resident exam - Critical Care Time Total Critical Care Time: 30 Critical Care Statement: The care of this patient involved high complexity decision making to prevent further life threatening deterioration of the patient's condition and/or to evaluate & treat vital organ system(s) failure or risk of failure. - Medical Decision Making 06/22/20 15:25 79 F with headache, SOB, LE edema. - Labs - CT head - CXR - IV diuresis - Admit Discharge - Discharge Information Problems reviewed: Yes Clinical Impression/Diagnosis: Cough, SOB (shortness of breath) Heart failure Qualifiers: Heart failure type: unspecified Heart failure chronicity: unspecified Qualified Code(s): I50.9 - Heart failure, unspecified Condition: Stable - Follow up/Referral - Patient Discharge Instructions - Post Discharge Activity
[2020-06-22] MEDS ORDERED: FUROSEMIDE 40 MG/4 ML INJECTABLE VIAL IVPUSH ONE (16:20)
[2020-06-22] MEDS ORDERED: FUROSEMIDE 40 MG/4 ML INJECTABLE VIAL ONE (16:48)
--- NOTE | 2020-06-22 20:49 | PN ---
Teaching Attending Note Name of Resident: Mary Avila ATTENDING PHYSICIAN STATEMENT I saw and evaluated the patient. I reviewed the resident's note and discussed the case with the resident. I agree with the resident's findings and plan as documented. SUBJECTIVE: Patient is an 79 year old woman with of Penicillin allergy, Asthma, COPD, Afib (on Eliquis), TIA, Hypothyroidism and bilateral DVTs who presents to the ER with complaint of SOB, bilateral LE swelling and headache since last week. Patient was seen at [facility] (06/16/20) a week ago for headache, SOB, and BLE edema. Patient had bloodwork and imaging and discharged on Medrol pack and Z-bladimir. Has associated swelling around her ankles, band-like headaches at forehead, an episo de of vertigo (described as the "world spinning") and a few episodes of "blacked out vision". Has a rash in her left ear. Patient denies chest pain, abdominal pain, palpitations, dizziness, fever, chills, nausea, vomiting, diarrhea, constipation, dysuria, frequency, urgency, melena, hematochezia or hematuria. Denies alcohol, tobacco or illicit drug use. No sick contacts or recent travels. Family history of colon cancer in mother; breast cancer in sister and daughter. OBJECTIVE: Alert Vital Signs Period Temp Pulse Resp BP Sys/Sexton Pulse Ox Last 24 Hr 97.1 F 96-104 21-31 98-144/37-126 94-99 HEENT: No Jaundice, eye redness or discharge, PERRLA, EOMI. Normocephalic, atraumatic. External left ear rash; hearing is grossly intact. No nasal discharge. Neck: Supple, nontender. No palpable adenopathy or thyromegaly. No JVD Chest: Good effort. Clear to auscultation and percussion. Heart: Regular. No S3, rub or murmur Abdomen: Not distended, soft, nontender and no HSM. No rebound or guarding. Normal bowel sounds. Ext: Peripheral pulses intact. No leg edema. Skin: Warm and dry. No petechiae, rash or ecchymosis. Neuro: Alert. Oriented x3. CN 2-12 grossly intact. Sensation grossly intact in all four extremities and DTR are symmetric. Psych: Appropriate mood and affect. Good insight. Home Medications Medication Instructions Recorded Levothyroxine [Synthroid -] 25 mcg PO DAILY 04/15/17 Losartan/Hydrochlorothiazide 1 each PO DAILY 04/15/17 [Losartan-Hctz 100-25 mg Tab] Simvastatin 40 mg PO HS 06/13/17 Apixaban [Eliquis] 2.5 mg PO BID 06/11/19 levETIRAcetam [Keppra -] 750 mg PO BID 08/12/19 Meclizine HCl [Antivert -] 25 mg PO BID PRN 08/13/19 Albuterol 0.083% Nebulizer Prabha 1 amp NEB Q4H PRN amp 08/21/19 [Ventolin 0.083% Nebulizer Soln -] Montelukast Na [Singulair -] 10 mg PO HS #1 tablet 10/21/19 Pantoprazole Sodium [Protonix -] 40 mg PO DAILY 30 Days #30 04/08/20 tablet.ec Albuterol Sulfate Inhaler - 2 puff IH Q4H PRN inhaler 05/20/20 [Ventolin HFA Inhaler -] Insulin (Levemir) [Levemir Vial] 8 units SQ HS units 05/20/20 Methylprednisolone [Medrol Dose 4 mg PO ASDIR #21 tablet 06/16/20 Bladimir] Fluticasone/Salmeterol [Advair Hfa 0 inh PO BID 06/22/20 115-21 Mcg Inhaler] Folic Acid 1 mg PO DAILY 06/22/20 Furosemide [Lasix] 40 mg PO DAILY 06/22/20 Insulin Aspart [Novolog] 8 unit SQ AM 06/22/20 Spironolactone 0 mg PO DAILY 06/22/20 Abnormal Lab Results 06/22/20 06/22/20 14:05 14:05 WBC 12.9 H MCHC 31.9 L RDW 17.0 H Absolute Neuts (auto) 11.3 H Neutrophils % 87.7 H D Neutrophils % (Manual) 87.4 H Lymphocytes % 7.4 L D Lymphocytes % (Manual) 7.8 L D Monocytes % (Manual) 2 L Anion Gap 6 L BUN 33.9 H Random Glucose 144 H Total Protein 6.2 L Current Medications Generic Name Dose Route Start Last Admin Trade Name Freq PRN Reason Stop Dose Admin Albuterol Sulfate 1 amp 09/26/20 23:14 Ventolin 0.083% Nebulizer Soln - NEB Q4H PRN SHORT OF BREATH/WHEEZING Albuterol Sulfate 2 puff 06/22/20 23:14 Ventolin Hfa Inhaler - IH Q4H PRN SHORT OF BREATH/WHEEZING Apixaban 2.5 mg 06/23/20 10:00 Eliquis - PO BID LUIZA Folic Acid 1 mg 06/23/20 10:00 Folic Acid - PO DAILY LUIZA Insulin Aspart 1 vial 06/23/20 07:00 Novolog Vial Sliding Scale - SQ ACHS LUIZA Protocol Levetiracetam 750 mg 06/23/20 10:00 Keppra - PO BID LUIZA Levothyroxine Sodium 25 mcg 06/23/20 10:00 Synthroid - PO DAILY LUIZA Meclizine HCl 25 mg 06/22/20 23:14 Antivert - PO BID PRN dizziness Montelukast Sodium 10 mg 06/23/20 22:00 Singulair - PO HS LUIZA Non-Formulary Medication 12 inh 06/23/20 10:00 Fluticasone/Salmeterol [Advair Hfa 115-21 Mcg Inhaler] PO BID LUIZA Non-Formulary Medication 1 each 06/23/20 10:00 Losartan/Hydrochlorothiazide [Losartan-Hctz 100-25 Mg Tab] PO DAILY LUIZA Non-Formulary Medication 40 mg 06/23/20 22:00 Simvastatin [Simvastatin] PO HS LUIZA Pantoprazole Sodium 40 mg 06/23/20 10:00 Protonix - PO DAILY LUIZA Spironolactone 25 mg 06/23/20 10:00 Aldactone - PO DAILY REPLACED BY [facility] ASSESSMENT AND PLAN: 1. CHF/Headache/Otitis externa - Etiology of headache is unclear. Will treat with Tylenol. Leukocytosis may be due to steroids and/or stress. Urinalysis is pending. CXR shows poor inspiration, cardiomegaly with increased interstitial markings. ECHO from 06/28/2019 showed normal LV size, thickness and function. No evidence of acute intracranial pathology on noncontrast head CT scan. No significant acute abnormality on temporal bone CT. Will treat otitis externa with Ciprofoxacin/Dexamethasone ear drop and consult ENT. Viral testing for COVID-19 ordered and patient placed on airborne, droplet and contact isolation. ER staff prescribed Tylenol, Duoneb and IV Lasix the patient. EKG shows NSR at 88/minute and QTc 462 with no significant acute ischemic ST-T wave changes. Initial troponin is negative. Will admit to telemetry, treat with IV Lasix, get ECHO, restrict dietary salt intake, monitor renal function, monitor and replete electrolytes, implement fall precautions, get daily weight and consult Cardiology. Consult PT/Neurology. Will continue comprehensive care for all of patients comorbid conditions. 2. DM For now, we will hold the home diabetes drugs and implement sliding scale insulin regimen. Provide comprehensive diabetes care with patient teaching and counseling about the importance of adherence to prescribed diabetes regimen, euglycemia, eye care and foot care. 3. Obesity Counseled on the risks associated with obesity. Will provide patient all the necessary assistance, counseling and positive reinforcement to facilitate weight loss. Consult electric locomotive crane operator. 4. Hypertension Will restart suitable outpatient antihypertensive drugs when clinically appropriate. Subsequently, will revise regimen to ensure [id number] excellent BP control. Patient counseled on the injurious effects of uncontrolled hypertension. Nonpharmacologic measures to control hypertension like weight loss, salt restriction and exercise stressed. Importance of adherence to treatment regimen and attainment of normotension emphasized. 5. DVT prophylaxis - On Eliquis 6. Advance directives - Full code
--- OUTSIDE RECORDS SUMMARY | 2020-06-22 20:59 | XMS ---
:1940 Author Organization [facility] Support Name Relationship Address Phone RE, RETIRED Unavailable Unavailable Unavailable RE Unavailable Unavailable Unavailable JODI, CRUZ DAUGHTER [address] [facility] [address] [place] [address] JODI, CRUZ Child [address] [place] [address] Re-disclosure Warning The records that you are [...] is protected by Article 27-F of the [facility] Public Health law. If you continue you may haveaccess to information: Regarding HIV / AIDS; Provided by facilities licensed or operated by the [facility] Office of Mental Health; or Provided by the [facility] Office for People With Developmental Disabilities. If such information is present, then the following [facility] mandated warning applies: This information has been [...] law may result in a fine or penitentiary sentence or both. A general authorization for the release of medical or other information is NOT sufficient authorization for further disclosure. Insurance Providers Payer name Policy type Policy ID Covered Covered constitution party's Policy P phani / Coverage constitution party ID relationship to [facility] type carey MARIANA UNDERWOOD [id number] SP [id number] SENIOR PLAN MEDICAID [id number] SP [id number] ABRIL MEDICARE [id number] SP [id number] MARIANA CROSS [id number] SP [id number] SENIOR PLAN MEDICARE [id number] SP [id number] ABRIL MEDICARE [id number] SP [id number] HUMANA GOLD [id number] SP [id number] PLUS PLAN HUMANA GOLD [id number] SP [id number] PLUS PLAN ABRIL MEDICARE [id number] SP [id number] MEDICARE [id number] SP [id number] SELF PAY INSURANCE HUMANA [id number] SP [id number] MEDICAL PLAN HUMANA GOLD [id number] SP [id number] PLUS PLAN HUMANA GOLD [id number] SP [id number] PLUS PLAN MEDICARE [id number] SP [id number] A AETNA [id number] SP [id number] MEDICARE AETNA [id number] SP [id number] MEDICARE [place] [facility] [id number] SP [id number] Results ID Date Data Source [id number] 05/13/2020 02:16:00 PM EDT [facility] Name Value Range Interpretation Description Data Sup porting Code Source(s) Document(s ) SARS [facility] coronavirus 2 RNA This lab was ordered by [facility] and reported by [facility]. ID Date Data Source [id number] 04/02/2020 02:26:00 PM EDT [facility] Name Value Range Interpretation Description Data Sup porting Code Source(s) Document(s ) SARS [facility] coronavirus 2 RNA This lab was ordered by [facility] and reported by [facility]. Procedure
[2020-06-22] MEDS ORDERED: MECLIZINE HCL 12.5 MG TABLET PO PRN (23:14)
[2020-06-22] MEDS ORDERED: ALBUTEROL SO4 0.083% IH SOL 2.5 MG/3 ML VIAL.NEB. NEB PRN (23:14)
[2020-06-22] MEDS ORDERED: ALBUTEROL SO4 HFA INHALER IH PRN (23:14)
--- NOTE | 2020-06-23 00:34 | HP ---
CHIEF COMPLAINT: headache PCP: Dr. Abbott HISTORY OF PRESENT ILLNESS: 79 y/o F with PMX of HTN, CHF, DM, hypothyroidism, asthma, COPD, Afib (on Apixiban), TIA, bilateral DVT presenting with L sided headache and ear pain that started around 3 days ago. Patient states that the headache is accompanied with a feeling of the room spinning around her. Patient states that she dose no recall falling or injuring her head. Describes the pain starting from behind her left ear and extending around the back of her head in a band like formation. States that she took Tylenol and Bengay which helped relieve the symptoms. Patient also endorses shortness of breath and swelling in both of her legs and feels like her Lasix is not helping in reducing her swelling as of late. Of note, the patient was seen at [facility] ED a week ago for similar symptoms and had bloodwork done and was discharged with z-bladimir and a Medrol dose pack. katena Crystal Slicer ID: [id number] ER course was notable for: (1)EKG:NSR with QTc 462 (2)CXR: poor inspiration, cardiomegaly w/ increased interstitial markings (3) Head and Temporal bone CT: final reports pending; preliminary reports negative (4)Tylenol, Duoneb and IV Lasix given Recent Travel: denies PAST MEDICAL HISTORY: as per HPI PAST SURGICAL HISTORY: hysterectomy at age 37 breast biopsy Social History: Smoking: denies Alcohol:denies Drugs: denies FAMILY HISTORY: Mom: colon cancer sister: breast cancer daughter: breast cancer Allergies Penicillins Allergy (Verified 06/22/20 12:36) Swelling HOME MEDICATIONS: Home Medications Medication Instructions Recorded Levothyroxine [Synthroid -] 25 mcg PO DAILY 04/15/17 Losartan/Hydrochlorothiazide 1 each PO DAILY 04/15/17 [Losartan-Hctz 100-25 mg Tab] Simvastatin 40 mg PO HS 06/13/17 Apixaban [Eliquis] 2.5 mg PO BID 06/11/19 levETIRAcetam [Keppra -] 750 mg PO BID 08/12/19 Meclizine HCl [Antivert -] 25 mg PO BID PRN 08/13/19 Albuterol 0.083% Nebulizer Prabha 1 amp NEB Q4H PRN amp 08/21/19 [Ventolin 0.083% Nebulizer Soln -] Montelukast Na [Singulair -] 10 mg PO HS #1 tablet 10/21/19 Pantoprazole Sodium [Protonix -] 40 mg PO DAILY 30 Days #30 04/08/20 tablet.ec Albuterol Sulfate Inhaler - 2 puff IH Q4H PRN inhaler 05/20/20 [Ventolin HFA Inhaler -] Insulin (Levemir) [Levemir Vial] 8 units SQ HS units 05/20/20 Methylprednisolone [Medrol Dose 4 mg PO ASDIR #21 tablet 06/16/20 Bladimir] Fluticasone/Salmeterol [Advair Hfa 0 inh PO BID 06/22/20 115-21 Mcg Inhaler] Folic Acid 1 mg PO DAILY 06/22/20 Furosemide [Lasix] 40 mg PO DAILY 06/22/20 Insulin Aspart [Novolog] 8 unit SQ AM 06/22/20 Spironolactone 0 mg PO DAILY 06/22/20 REVIEW OF SYSTEMS CONSTITUTIONAL: Absent: fever, chills, diaphoresis, generalized weakness, malaise, loss of appetite, weight change HEENT: Absent: rhinorrhea, nasal congestion, throat pain, throat swelling, difficulty swallowing, mouth swelling, ear pain, eye pain, visual changes CARDIOVASCULAR: Absent: chest pain, syncope, palpitations, irregular heart rate, lightheadedness, peripheral edema RESPIRATORY: PRESENT: SHORTNESS OF BREATH, ORTHOPNEA, Absent: cough, dyspnea with exertion, wheezing, stridor, hemoptysis GASTROINTESTINAL: Absent: abdominal pain, abdominal distension, nausea, vomiting, diarrhea, constipation, melena, hematochezia GENITOURINARY: Absent: dysuria, frequency, urgency, hesitancy, hematuria, flank pain, genital pain MUSCULOSKELETAL: Absent: myalgia, arthralgia, joint swelling, back pain, neck pain SKIN: Absent: rash, itching, pallor HEMATOLOGIC/IMMUNOLOGIC: Absent: easy bleeding, easy bruising, lymphadenopathy, frequent infections ENDOCRINE: Absent: unexplained weight gain, unexplained weight loss, heat intolerance, cold intolerance NEUROLOGIC: PRESENT: HEADACHE Absent: focal weakness or paresthesias, dizziness, unsteady gait, seizure, me ntal status changes, bladder or bowel incontinence PSYCHIATRIC: Absent: anxiety, depression, suicidal or homicidal ideation, hallucinations. PHYSICAL EXAMINATION Vital Signs - 24 hr 06/22/20 06/22/20 06/22/20 12:05 12:10 13:00 Temperature 97.1 F L Pulse Rate 99 H Pulse Rate [ 97 H Left Radial] Respiratory 24 H 31 H Rate Blood Pressure 98/37 L Blood Pressure 144/126 H [Right Arm] O2 Sat by Pulse 98 94 L 98 Oximetry (%) 06/22/20 06/22/20 06/22/20 15:00 15:04 17:00 Temperature Pulse Rate Pulse Rate [ 104 H 96 H Left Radial] Respiratory 22 H 21 H Rate Blood Pressure Blood Pressure 113/59 L 112/78 [Right Arm] O2 Sat by Pulse 99 99 96 Oximetry (%) GENERAL: AAOx3, in no acute distress HEENT: NCAT, PERRLA, EOMI, sclera anicteric, conjunctiva clear, oropharynx clear w/o exudates. MMM. red rash in cavum of the ear. NECK: Normal ROM, supple, no lymphadenopathy, JVD, or masses LUNGS: +wheezing no rhonchi/ rales. No distress, speaks in full sentences. No increased work of breathing. HEART: RRR, normal S1 S2, no M/R/G, peripheral pulses 2+ and equal b/l ABDOMEN: Soft, NTND, + BS. No guarding or rebound. No hepatomegaly or splenomegaly. 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 No clubbing or cyanosis. 1+ pitting edema bilaterally NEUROLOGICAL: CN II-XII intact. Normal speech, normal gait, no focal sensori motor deficits. SKIN: Warm, Dry, normal turgor, no rashes or lesions noted Laboratory Results - last 24 hr CBC, BMP 06/22/20 14:05 06/22/20 14:05 06/22/20 06/22/20 14:05 14:05 WBC 12.9 H RBC 4.31 Hgb 11.9 Hct 37.4 MCV 86.8 MCH 27.7 MCHC 31.9 L RDW 17.0 H Plt Count 233 MPV 8.5 Absolute Neuts (auto) 11.3 H Neutrophils % 87.7 H D Neutrophils % (Manual) 87.4 H Band Neutrophils % 0.0 Lymphocytes % 7.4 L D Lymphocytes % (Manual) 7.8 L D Monocytes % 4.0 Monocytes % (Manual) 2 L Eosinophils % 0.4 Eosinophils % (Manual) 0.0 Basophils % 0.5 Basophils % (Manual) 0.0 Myelocytes % (Man) 2 D Promyelocytes % (Man) 0 Blast Cells % (Manual) 0 Nucleated RBC % 0 Metamyelocytes 1 Hypochromia 0 Platelet Estimate Normal Polychromasia 0 Poikilocytosis 0 Anisocytosis 0 Microcytosis 0 Macrocytosis 0 Sodium 140 Potassium 3.7 Chloride 103 Carbon Dioxide 32 Anion Gap 6 L BUN 33.9 H Creatinine 1.0 Est GFR (CKD-EPI)AfAm 61.62 Est GFR (CKD-EPI)NonAf 53.17 Random Glucose 144 H Calcium 9.1 Total Bilirubin 0.8 AST 18 ALT 20 Alkaline Phosphatase 83 B-Natriuretic Peptide 344.5 Total Protein 6.2 L Albumin 3.4 ASSESSMENT/PLAN: 79 y/o Lady with PMX of HTN, CHF, DM, Hypothyroidism, asthma, COPD, Afib on Apixiban, TIA, bilateral DVT presenting with L sided headache and ear pain for the last 3 days. #Headache -unclear etiology -Tylenol ordered for headache -Neuro consulted; f/u reccs #Ear pain -possible otitis externa given the PE findings -ENT consulted; f/u reccs -Ofloximen otic drops started #Leukocytosis -likely due to steroid use -UA ordered to rule out UTI -continue to monitor CBC #Acute CHF Exacerbation -ECHO from 2019 shows LV function wnl -Patient responded well to Lasix in ED -40 IV Lasix daily -daily weights -monitor strict I/Os -Sodium restricted Diabetic diet -echo ordered -cardio consulted; f/u reccs #B/l Leg Edema -most likely from fluid overload -Doppler u/s ordered #DM -ISS w/ BGM #HTN -home HTN meds restarted #Hypothyroidism -Synthroid restarted at home dose #FEN -no standing fluids -monitor lytes; replete PRN -Sodium controlled diabetic diet #Ppx DVT: Eliquis 2.5 mg BID Dispo: admit to tele obs Family Medical History Family History: As Documented Visit type - Medication Review Med list reviewed for High Risk Meds patients 65 and older: Yes - Emergency Visit Emergency Visit: Yes ED Registration Date: 06/22/20 Care time: The patient presented to the Emergency Department on the above date and was hospitalized for further evaluation of their emergent condition. - New Patient This patient is new to me today: Yes Date on this admission: 06/23/20 - Critical Care Critical Care patient: No ATTENDING PHYSICIAN STATEMENT I saw and evaluated the patient. I reviewed the resident's note and discussed the case with the resident. I agree with the resident's findings and plan as documented. SUBJECTIVE: OBJECTIVE: ASSESSMENT AND PLAN:
[2020-06-23 00:47] LABS: EPI CELLS 2 /uL (0-25.1); HYALINE CASTS 1 /uL (0-3.1); PH,URINE 5.5 (5.0-8.0); URINE APPEARANCE CLEAR; URINE BILIRUBIN NEGATIVE (NEGATIVE); URINE COLOR YELLOW; URINE GLUCOSE (UA) NEGATIVE (NEGATIVE); URINE KETONE NEGATIVE (NEGATIVE); URINE LEUK ESTERASE NEGATIVE (NEGATIVE); URINE NITRITE POSITIVE (NEGATIVE); URINE PROTEIN NEGATIVE (NEGATIVE); URINE RBC 1 /uL (0-23.9); URINE UROBILINOGEN 0.2 mg/dL (0.2-1.0); URINE WBC 7 /uL (0-25.8)
[2020-06-23] MEDS ORDERED: PANTOPRAZOLE 40 MG TABLET ONE (06:21)
[2020-06-23] MEDS ORDERED: LEVOTHYROXINE NA 25 MCG TABLET (FP) ONE (06:21)
[2020-06-23] MEDS: INSULIN SLIDING SCALE (NOVOLOG) 1 VIAL SQ SCH ×3 (06:29→17:01)
--- NOTE | 2020-06-23 06:52 | CON.CARD ---
Consult Consult Specialty:: Cardiology Referred by:: Dr Freed Reason for Consultation:: SOB - History of Present Illness Chief Complaint: Patient is an 79 year old woman with of Penicillin allergy, Asthma, COPD, Afib (on Eliquis), TIA, Hypothyroidism and bilateral DVTs who presents to the ER with complaint of SOB, bilateral LE swelling and headache since last week. Patient was seen at [facility] (06/16/20) a week ago for headache, SOB, and BLE edema. Patient had bloodwork and imaging and discharged on Medrol pack and Z-bladimir. Has associated swelling around her ankles, band-like headaches at forehead, an episode of vertigo (described as the "world spinning") and a few episodes of "blacked out vision". Has a rash in her left ear. Patient denies chest pain, abdominal pain, palpitations, dizziness, fever, chills, nausea, vomiting, diarrhea, constipation, dysuria, frequency, urgency, melena, hematochezia or hematuria. Denies alcohol, tobacco or illicit drug use. No sick contacts or recent travels. Family history of colon cancer in mother; breast cancer in sister and daughter. History of Present Illness: Pt sees Dr Abbott of [facility]. sees Dr Heydi Marcial for cardiology. has chronic CP. PMH: asthma, paroxysmal afib, TIA, and bilateral DVT's - Past Medical History SHIPPER: Yes: CVA, Seizure ( last seizure >10yrs ago), Vertigo Cardio/Vascular: Yes: Aortic Stenosis, HTN Pulmonary: Yes: Asthma Gastrointestinal: Yes: Gastritis Musculoskeletal: Yes: Other (arthritis (type not specificed)) ENT: Yes: Sinusitis Endocrine: Yes: Hypothyroidism Additional Medical History: DVTs, HPL - Past Surgical History Past Surgical History: Yes: Breast Biopsy, Hysterectomy (Possible) ROS: Patient states she came to ER for increased b/l LE edema and mild FIERRO. In 2018, I had seen her in hospital and she gave a hx that cath had been recommended in [place]. I obtained a copy of her 2018 nuclear stress report which was normal. At that time, due to persistent FIERRO I recommended cath but she refused. She had been on AC for h/o DVTS but now there is also PAF documented. She reports improvement in her edema after receiving IV Lasix in ER. - Past Medical History SHIPPER: Yes: CVA, Seizure ( last seizure >10yrs ago), Vertigo Cardio/Vascular: Yes: Aortic Stenosis, HTN Pulmonary: Yes: Asthma, Bronchitis, Pneumonia. No: Cancer, COPD, O2 Dependent, Previously Intubated, Pulmonary Embolus, Pulmonary Fibrosis, Sleep Apnea Gastrointestinal: Yes: Gastritis Heme/Onc: Yes: Other (DVTs) Musculoskeletal: Yes: Other (arthritis (type not specificed)) ENT: Yes: Sinusitis Endocrine: Yes: Hypothyroidism Additional Medical History: DVTs, HPL - Past Surgical History Past Surgical History: Yes: Breast Biopsy, Hysterectomy (Possible) - Alcohol/Substance Use Hx Alcohol Use: No History of Substance Use: reports: None - Smoking History Smoking history: Never smoked Have you smoked in the past 12 months: No Aproximately how many cigarettes per day: 0 - Social History Usual Living Arrangement: With Child ADL: Independent Occupation: retired 20 yrs ago History of Recent Travel: Yes (traveled from [place]) Home Medications - Allergies Allergies/Adverse Reactions: Allergies Allergy/AdvReac Type Severity Reaction Status Date / Time Penicillins Allergy Swelling Verified 06/22/20 12:36 - Home Medications Home Medications: Ambulatory Orders Levothyroxine [Synthroid -] 25 mcg PO DAILY 04/15/17 Losartan/Hydrochlorothiazide [Losartan-Hctz 100-25 mg Tab] 1 each PO DAILY 04/15/17 Simvastatin 40 mg PO HS 06/13/17 Apixaban [Eliquis] 2.5 mg PO BID 06/11/19 levETIRAcetam [Keppra -] 750 mg PO BID 08/12/19 Meclizine HCl [Antivert -] 25 mg PO BID PRN 08/13/19 Albuterol 0.083% Nebulizer Prabha [Ventolin 0.083% Nebulizer Soln -] 1 amp NEB Q4H PRN amp 08/21/19 Montelukast Na [Singulair -] 10 mg PO HS #1 tablet 10/21/19 Pantoprazole Sodium [Protonix -] 40 mg PO DAILY 30 Days #30 tablet.ec 04/08/20 Albuterol Sulfate Inhaler - [Ventolin HFA Inhaler -] 2 puff IH Q4H PRN inhaler 05/20/20 Insulin (Levemir) [Levemir Vial] 8 units SQ HS units 05/20/20 Methylprednisolone [Medrol Dose Bladimir] 4 mg PO ASDIR #21 tablet 06/16/20 Fluticasone/Salmeterol [Advair Hfa 115-21 Mcg Inhaler] 0 inh PO BID 06/22/20 Folic Acid 1 mg PO DAILY 06/22/20 Furosemide [Lasix] 40 mg PO DAILY 06/22/20 Insulin Aspart [Novolog] 8 unit SQ AM 06/22/20 Spironolactone 0 mg PO DAILY 06/22/20 Family Medical History Family Hx Cancer: Mother (Colon cancer), Sister (BCA) Review of Systems Findings/Remarks: see HPI - Review of Systems Constitutional: reports: No Symptoms Eyes: reports: No Symptoms HENT: reports: No Symptoms Neck: reports: No Symptoms Cardiovascular: reports: Shortness of Breath (chronic), Other (edema) Respiratory: reports: Exercise Intolerance Gastrointestinal: reports: No Symptoms Genitourinary: reports: No Symptoms Breasts: reports: No Symptoms Reported Musculoskeletal: reports: No Symptoms Integumentary: reports: No Symptoms Neurological: reports: Headache Endocrine: reports: No Symptoms Hematology/Lymphatic: reports: No Symptoms Psychiatric: reports: No Symptoms - Risk Factors Known Risk Factors: Yes: Age, Hypertension Vital Signs: Vital Signs Temperature 98.3 F 06/23/20 05:00 Pulse Rate 75 06/23/20 05:00 Respiratory Rate 18 06/23/20 05:00 Blood Pressure 135/72 06/23/20 05:00 O2 Sat by Pulse Oximetry (%) 98 06/23/20 05:00 Constitutional: Yes: No Distress, Calm Eyes: Yes: Conjunctiva Clear, EOM Intact HENT: Yes: Atraumatic, Normocephalic Neck: Yes: Supple, Trachea Midline Respiratory: Yes: Other (mild expiratory wheezing, no rales.) Gastrointestinal: Yes: Soft (nt), Abdomen, Obese Cardiovascular: Yes: Regular Rate and Rhythm, Other (systolic murmur RSB, non radiating) JVD: No Carotid Bruit: No Heart Sounds: Yes: S1, S2 Murmur: Yes: Systolic Murmur Edema: No Peripheral Pulses WNL: Yes Neurological: Yes: Alert, Oriented ...Motor Strength: WNL - Other Data Labs, Other Data: Troponin, BNP 06/22/20 14:05 B-Natriuretic Peptide 344.5 Troponin, BNP 06/22/20 14:05 B-Natriuretic Peptide 344.5 Laboratory Tests 06/22/20 06/22/20 06/23/20 14:05 21:10 06:18 WBC 12.8 H Hgb 12.4 Plt Count 226 Sodium Potassium Creatinine Random Glucose 144 H B-Natriuretic Peptide 344.5 TSH COVID-19 (OCTAVIO) Pending 06/23/20 06:18 WBC Hgb Plt Count Sodium 145 Potassium 4.1 Creatinine 1.0 Random Glucose 125 H B-Natriuretic Peptide TSH 2.14 COVID-19 (OCTAVIO) NSR 88bpm, no acute ST changes Echo: Report Reviewed (Fall 2018: Normal LVEF, diastolic dysfx, mild to moderate , mod-severe TR with moderate PHTN) Stress Echo: Report Reviewed (2018 Nuclear stress [place] WNL- see prior notes from admissions) Ejection Fraction %: LVEF > or = 40 % Imaging - Results EKG: Image Reviewed Assessment/Plan IMP/PLAN: Chronic FIERRO: h/o asthma: -multiple prior normal nuclear stress tests ([place] 2018) and one recently at [facility] per recent records (prior admits) -Patient had been recommended cath for definitive cor assessment, but refused -Has been following with Dr. Marcial at [facility] -Suspect mild flare of acute asthma now Afib: as per records, need to confirm hx with daughter -sinus here -not on AVN blockers at home--no change -cont home Eliquis 2.5 bid (indicated dose is 5mg based on her wt/creatinine, however she is following with outside cardio hence will not change plan) -Previously on this for h/o DVTs (not AF) HTN: -bp controlled -cont losartan, HCTZ home regimen h/o TIA: -on AC, statin at home--continue same h/o DVTs: -AC per outside MDs' plan SOB: chronic -diastolic dysfx on echo 06/2019 and chronic PHTN (likely due to longstanding asthma) - BNP and CXR normal -She does report b/l LE edema which may be secondary to right sided failure from PHTN -Can transition to PO Lasix tomorrow (06/24) Mild to moderate : -F/u echo ordered Moderate chronic PHTN: -As above -Likely due to chronic asthma.
[2020-06-23] MEDS ORDERED: PANTOPRAZOLE 40 MG TABLET PO SCH (07:00)
[2020-06-23] MEDS ORDERED: LEVOTHYROXINE NA 25 MCG TABLET (FP) PO SCH (07:00)
[2020-06-23 07:06] LABS: ALBUMIN 3.3 g/dl (3.4-5.0); BILIRUBIN,TOTAL 0.7 mg/dL (0.2-1); BLOOD UREA NITROGEN 30.9 mg/dL (7-18); CALCIUM 9.2 mg/dL (8.5-10.1); MAGNESIUM 2.2 mg/dL (1.8-2.4); PHOSPHOROUS 4.7 mg/dL (2.5-4.9); POTASSIUM 4.1 mmol/L (3.5-5.1); TOT PROT 6.2 g/dl (6.4-8.2)
[2020-06-23 07:08] LABS: BASO % 0.7 % (0-2.0); EOS % 2.3 % (0-4.5); HEMATOCRIT 38.2 % (32.4-45.2); HEMOGLOBIN 12.4 GM/dL (10.7-15.3); LYMPH % 20.1 % (8-40); MCH 28.8 pg (25.7-33.7); MCHC 32.5 g/dl (32.0-36.0); MEAN CELL VOLUME 88.6 fl (80-96); NEUT % 67.9 % (42.8-82.8); PLATELET COUNT 226 K/MM3 (134-434); RBC 4.31 M/mm3 (3.60-5.2); RDW 17.2 % (11.6-15.6); WHITE BLOOD COUNT 12.8 K/mm3 (4.0-10.0)
[2020-06-23] MEDS ORDERED: APIXABAN 2.5 MG TABLET ONE (09:42)
[2020-06-23] MEDS ORDERED: levETIRAcetam 500 MG TABLET (FP) PO ONE (09:43)
[2020-06-23] MEDS ORDERED: FOLIC ACID 1 MG TABLET (FP) ONE (09:43)
[2020-06-23] MEDS ORDERED: SPIRONOLACTONE 25 MG TABLET ONE (09:43)
[2020-06-23] MEDS ORDERED: FUROSEMIDE 40 MG/4 ML INJECTABLE VIAL ONE (09:44)
[2020-06-23] MEDS ORDERED: levETIRAcetam 500 MG TABLET (FP) PO SCH (10:00)
[2020-06-23] MEDS ORDERED: PATIENT'S OWN MEDICATION (NON-FORMULARY) (Losartan/Hydrochlorothiazide [Losartan-Hctz 100- PO SCH (10:00)
[2020-06-23] MEDS ORDERED: FOLIC ACID 1 MG TABLET (FP) PO SCH (10:00)
[2020-06-23] MEDS ORDERED: SPIRONOLACTONE 25 MG TABLET PO SCH (10:00)
[2020-06-23] MEDS ORDERED: APIXABAN 2.5 MG TABLET PO SCH (10:00)
[2020-06-23] MEDS ORDERED: OFLOXACIN 0.3% OTIC SOLUTION 5 ML BOTTLE AD SCH (10:00)
[2020-06-23] MEDS ORDERED: PATIENT'S OWN MEDICATION (NON-FORMULARY) (Fluticasone/Salmeterol [Advair Hfa 115-21 Mcg In PO SCH (10:00)
[2020-06-23] MEDS ORDERED: LOSARTAN 50MG/HCTZ 12.5MG 1 TAB PO SCH (10:00)
[2020-06-23] MEDS ORDERED: BUDESONIDE/FORMETEROL FUMARATE 80/4.5 mcg INHALER IH SCH (10:00)
[2020-06-23] MEDS ORDERED: FUROSEMIDE 40 MG/4 ML INJECTABLE VIAL IVPUSH SCH (10:00)
--- NOTE | 2020-06-23 15:08 | EKG ---
Test Reason : Blood Pressure : / mmHG Vent. Rate : 088 BPM Atrial Rate : 088 BPM P-R Int : 118 ms QRS Dur : 080 ms QT Int : 382 ms P-R-T Axes : 035 007 -04 degrees QTc Int : 462 ms NORMAL SINUS RHYTHM NORMAL ECG WHEN COMPARED WITH ECG OF 16-JUN-2020 14:27, PREMATURE VENTRICULAR COMPLEXES ARE NO LONGER PRESENT PREMATURE SUPRAVENTRICULAR COMPLEXES ARE NO LONGER PRESENT T WAVE INVERSION NO LONGER EVIDENT IN LATERAL LEADS Confirmed by MD Pedersen Daniel ([id number]) on 06/23/2020 3:08:02 PM Referred By: Confirmed By:Addison Pedersen MD
--- NOTE | 2020-06-23 15:50 | PN ---
Progress Note (short form) - Note Progress Note: events noted headache SOB on exertion Vital Signs - 24 hr 06/22/20 06/22/20 06/22/20 17:00 20:00 21:00 Temperature 98.4 F Pulse Rate Pulse Rate [ 96 H Left Radial] Respiratory 21 H 20 Rate Blood Pressure Blood Pressure 112/78 [Right Arm] O2 Sat by Pulse 96 98 Oximetry (%) 06/22/20 06/22/20 06/23/20 22:00 23:00 01:00 Temperature Pulse Rate 90 87 85 Pulse Rate [ 86 85 Left Radial] Respiratory 28 H 21 H 18 Rate Blood Pressure 86/65 L 114/56 L 118/61 Blood Pressure 114/56 L 118/61 [Right Arm] O2 Sat by Pulse 93 L 97 Oximetry (%) 06/23/20 06/23/20 06/23/20 04:00 05:00 09:49 Temperature 98.3 F Pulse Rate 81 75 Pulse Rate [ 91 H Left Radial] Respiratory 18 24 H Rate Blood Pressure 122/75 135/72 Blood Pressure 122/55 L [Right Arm] O2 Sat by Pulse 100 98 96 Oximetry (%) 06/23/20 06/23/20 06/23/20 10:00 12:30 14:59 Temperature Pulse Rate 91 H Pulse Rate [ 91 H 99 H Left Radial] Respiratory 22 H 17 Rate Blood Pressure Blood Pressure 114/62 124/69 [Right Arm] O2 Sat by Pulse 90 L 99 100 Oximetry (%) Current Medications Generic Name Dose Route Start Last Admin Trade Name Freq PRN Reason Stop Dose Admin Albuterol Sulfate 1 amp 06/22/20 23:14 Ventolin 0.083% Nebulizer Soln - NEB Q4H PRN SHORT OF BREATH/WHEEZING Albuterol Sulfate 2 puff 06/22/20 23:14 Ventolin Hfa Inhaler - IH Q4H PRN SHORT OF BREATH/WHEEZING Apixaban 2.5 mg 06/23/20 10:00 06/23/20 10:04 Eliquis - PO 2.5 mg BID LUIZA Administration Atorvastatin Calcium 20 mg 06/23/20 22:00 Lipitor - PO HS LUIZA Budesonide/Formoterol Fumarate 2 puff 06/23/20 10:00 06/23/20 10:45 Symbicort 80/4.5mcg - IH 2 puff BID LUIZA Administration Folic Acid 1 mg 06/23/20 10:00 06/23/20 10:04 Folic Acid - PO 1 mg DAILY LUIZA Administration Furosemide 40 mg 06/23/20 10:00 06/23/20 10:04 Lasix Injection - IVPUSH 40 mg DAILY LUIZA Administration HCTZ/Losartan Potassium 2 tab 06/23/20 10:00 06/23/20 10:04 Hyzaar - PO 2 tab DAILY LUIZA Administration Insulin Aspart 1 vial 06/23/20 07:00 06/23/20 11:37 Novolog Vial Sliding Scale - SQ Not Given ACHS [facility] Protocol Levetiracetam 750 mg 06/23/20 10:00 06/23/20 10:04 Keppra - PO 750 mg BID LUIZA Administration Levothyroxine Sodium 25 mcg 06/23/20 07:00 06/23/20 06:24 Synthroid - PO 25 mcg ACBK LUIZA Administration Meclizine HCl 25 mg 06/22/20 23:14 Antivert - PO BID PRN dizziness Montelukast Sodium 10 mg 06/23/20 22:00 Singulair - PO HS LUIZA Ofloxacin 10 drop 06/23/20 10:00 06/23/20 10:43 Floxin Otic (Ear) Solution - AD 10 drop DAILY LUIZA Administration Pantoprazole Sodium 40 mg 06/23/20 07:00 06/23/20 06:23 Protonix - PO 40 mg ACBK LUIZA Administration Spironolactone 25 mg 06/23/20 10:00 06/23/20 10:04 Aldactone - PO 25 mg DAILY LUIZA Administration Laboratory Results - last 24 hr 06/23/20 06/23/20 06/23/20 00:18 06:18 06:18 WBC 12.8 H RBC 4.31 Hgb 12.4 Hct 38.2 MCV 88.6 MCH 28.8 MCHC 32.5 RDW 17.2 H Plt Count 226 MPV 9.0 Absolute Neuts (auto) 8.7 H Neutrophils % 67.9 D Lymphocytes % 20.1 D Monocytes % 9.0 D Eosinophils % 2.3 D Basophils % 0.7 Nucleated RBC % 0 Sodium 145 Potassium 4.1 Chloride 104 Carbon Dioxide 34 H Anion Gap 6 L BUN 30.9 H Creatinine 1.0 Est GFR (CKD-EPI)AfAm 61.62 Est GFR (CKD-EPI)NonAf 53.17 POC Glucometer Random Glucose 125 H Hemoglobin A1c % Calcium 9.2 Phosphorus 4.7 Magnesium 2.2 Total Bilirubin 0.7 AST 15 ALT 18 Alkaline Phosphatase 73 Total Protein 6.2 L Albumin 3.3 L TSH 2.14 Urine Color Yellow Urine Appearance Clear Urine pH 5.5 Ur Specific Dawson 1.009 L Urine Protein Negative Urine Glucose (UA) Negative Urine Ketones Negative Urine Blood Negative Urine Nitrite Positive H Urine Bilirubin Negative Urine Urobilinogen 0.2 Ur Leukocyte Esterase Negative Urine WBC (Auto) 7 Urine RBC (Auto) 1 Urine Casts (Auto) 1 U Epithel Cells (Auto) 2 06/23/20 06/23/20 06/23/20 06:18 06:27 11:36 WBC RBC Hgb Hct MCV MCH MCHC RDW Plt Count MPV Absolute Neuts (auto) Neutrophils % Lymphocytes % Monocytes % Eosinophils % Basophils % Nucleated RBC % Sodium Potassium Chloride Carbon Dioxide Anion Gap BUN Creatinine Est GFR (CKD-EPI)AfAm Est GFR (CKD-EPI)NonAf POC Glucometer 102 108 Random Glucose Hemoglobin A1c % 7.1 H Calcium Phosphorus Magnesium Total Bilirubin AST ALT Alkaline Phosphatase Total Protein Albumin TSH Urine Color Urine Appearance Urine pH Ur Specific Dawson Urine Protein Urine Glucose (UA) Urine Ketones Urine Blood Urine Nitrite Urine Bilirubin Urine Urobilinogen Ur Leukocyte Esterase Urine WBC (Auto) Urine RBC (Auto) Urine Casts (Auto) U Epithel Cells (Auto) S1 S2 RRR Lungs ronchi+ Abd- soft, NT edema+ PLAN CHF Asthma DM HTN Headaches -- CT head and temporal CT noted -- short course steroid -- nebs -- iV lasix -- change to po tomorrow per Cardiology -- OOB Problem List - Problems (1) Acute exacerbation of mild persistent extrinsic asthma Code(s): J45.31 - MILD PERSISTENT ASTHMA WITH (ACUTE) EXACERBATION (2) Hypertension Code(s): I10 - ESSENTIAL (PRIMARY) HYPERTENSION (3) Hypothyroid Code(s): E03.9 - HYPOTHYROIDISM, UNSPECIFIED
[2020-06-23] MEDS ORDERED: ACETAMINOPHEN 325 MG TABLET (FP) PO PRN (15:53)
[2020-06-23] MEDS: methylPREDNISolone NA SUCC 40 MG/1 ML VIAL IVPUSH SCH ×2 (16:11→18:40)
--- NOTE | 2020-06-23 19:55 | HOSP ---
Subjective - Review of Symptoms Events since last encounter: Hospitalist Encounter Reviewed a microblog from this afternoon regarding a patient alleging, she fell. Notified the primary RN, that I will come to assess the patient per Fall Protocol Patient is Kinyarwanda speaking, but pointed to her R hip and said "Pain". Asked in Kinyarwanda if she hit her head, patient denies. Plan: Fall Protocol #1 R Hip Xray Musculoskeletal: Yes: Joint Pain (right hip) Physical Examination Vital Signs: Vital Signs Temperature 98.0 F 06/23/20 19:42 Pulse Rate 95 H 06/23/20 19:42 Respiratory Rate 22 H 06/23/20 19:42 Blood Pressure 112/66 06/23/20 19:42 O2 Sat by Pulse Oximetry (%) 100 06/23/20 19:42 Constitutional: Yes: No Distress, Calm Eyes: Yes: Conjunctiva Clear, EOM Intact, PERRL HENT: Yes: Atraumatic, Normocephalic Neck: Yes: Supple, Trachea Midline Cardiovascular: Yes: Regular Rate and Rhythm, S1, S2 Respiratory: Yes: Rhonchi Gastrointestinal: Yes: Normal Bowel Sounds, Soft, Abdomen, Obese ...Rectal Exam: Yes: Deferred Renal/: Yes: WNL Breast(s): Yes: WNL Musculoskeletal: Yes: Joint Stiffness (right hip, right knee) Extremities: Yes: WNL Edema: LLE: 1+, RLE: 1+ Peripheral Pulses WNL: Yes Neurological: Yes: Alert, Oriented ...Motor Strength: WNL Psychiatric: Yes: Alert, Oriented Labs: CBC, BMP 06/23/20 06:18 06/23/20 06:18 Hospitalist Encounter Assessment: This is a 79 y/o female with co-morbidities. Admitted for CHF Exacerbation. Outcome: Head CT- neg for ICH Dupex LE- neg for DVT R-Hip Xray pending Recommendations/Interventions: Fall Precautions
[2020-06-23 20:52] VITALS: BMI 30.3
[2020-06-23] MEDS ORDERED: ALBUTEROL SO4 HFA INHALER IH PRN (21:15)
--- NOTE | 2020-06-23 21:53 | FALL ---
Fall Exam - Event Witnessed fall: No Location of Fall: ED Fall from: Bed - Pre-Fall Mental Status: Alert, Oriented, Cooperative Current Medications: Current Medications Generic Name Dose Route Start Last Admin Trade Name Freq PRN Reason Stop Dose Admin Albuterol Sulfate 1 amp 06/23/20 21:14 Ventolin 0.083% Nebulizer Soln - NEB Q4H PRN SHORT OF BREATH/WHEEZING Albuterol Sulfate 2 puff 06/23/20 21:15 Ventolin Hfa Inhaler - IH Q4H PRN SHORT OF BREATH/WHEEZING Apixaban 2.5 mg 06/23/20 22:00 Eliquis - PO BID [facility] Atorvastatin Calcium 20 mg 06/23/20 22:00 Lipitor - PO HS [facility] Budesonide/Formoterol Fumarate 2 puff 06/23/20 22:00 Symbicort 80/4.5mcg - IH BID LUIZA Folic Acid 1 mg 06/24/20 10:00 Folic Acid - PO DAILY [facility] Hydrochlorothiazide 25 mg 06/24/20 10:00 Hctz - PO DAILY [facility] Insulin Detemir 8 units 06/23/20 22:00 Levemir Vial SQ HS [facility] Levetiracetam 750 mg 06/23/20 22:00 Keppra - PO BID [facility] Levothyroxine Sodium 25 mcg 06/24/20 07:00 Synthroid - PO DAILY@0700 [facility] Losartan Potassium 100 mg 06/24/20 10:00 Cozaar - PO DAILY [facility] Meclizine HCl 25 mg 06/23/20 21:17 Antivert - PO Q12H PRN VERTIGO Montelukast Sodium 10 mg 06/23/20 22:00 Singulair - PO HS [facility] Pantoprazole Sodium 40 mg 06/24/20 10:00 Protonix - PO DAILY [facility] Spironolactone 25 mg 06/24/20 10:00 Aldactone - PO DAILY [facility] - Post-Fall Patient Outcome: Pain Only (right hip) Exam Findings: AAOx3, head: normocephalic, atraumatic non-tender to palpation, HEENT: PERRL, supple, non-tender, no erythema, no edema to palentines, Lungs: scattered rhonchi. Heart: S1S2, no MRG. Musculoskeltal: FROM RUE, LUE, LLE. LROM RLE. Tenderness to palpation of R- Hip, no shortening, no external rotation of LE noted. Treatment: Ice Pack Vital Signs: Vital Signs Temperature 98.2 F 06/23/20 20:41 Pulse Rate 90 06/23/20 20:41 Respiratory Rate 22 H 06/23/20 20:41 Blood Pressure 95/58 L 06/23/20 20:41 O2 Sat by Pulse Oximetry (%) 100 06/23/20 20:41 LOC Post-Fall: Awake Identify factors for HIGH RISK for Head Injury: Pt on anticoagulant
[2020-06-23] MEDS ORDERED: MONTELUKAST NA 10 MG TABLET PO SCH (22:00)
[2020-06-23] MEDS ORDERED: ATORVASTATIN CA 20 MG TABLET (FP) PO SCH (22:00)
[2020-06-23] MEDS: APIXABAN 2.5 MG TABLET PO SCH (22:00)
[2020-06-23] MEDS ORDERED: INSULIN (LEVEMIR) 100 UNITS/ML UNITS SQ SCH (22:00)
[2020-06-23] MEDS ORDERED: PATIENT'S OWN MEDICATION (NON-FORMULARY) (Simvastatin [Simvastatin] 40 MG) PO SCH (22:00)
[2020-06-23] MEDS: levETIRAcetam 250 MG TABLET PO SCH (22:47)
[2020-06-23] MEDS: ATORVASTATIN CA 20 MG TABLET (FP) PO SCH (22:47)
[2020-06-23] MEDS: MONTELUKAST NA 10 MG TABLET PO SCH (22:48)
[2020-06-23] MEDS: INSULIN (LEVEMIR) 100 UNITS/ML UNITS SQ SCH (22:48)
[2020-06-23] MEDS: BUDESONIDE/FORMETEROL FUMARATE 80/4.5 mcg INHALER IH SCH (23:30)
[2020-06-24] MEDS: LEVOTHYROXINE NA 25 MCG TABLET (FP) PO SCH (06:14)
[2020-06-24] MEDS: PANTOPRAZOLE 40 MG TABLET PO SCH (09:05)
[2020-06-24] MEDS: SPIRONOLACTONE 25 MG TABLET PO SCH (09:05)
[2020-06-24] MEDS: FOLIC ACID 1 MG TABLET (FP) PO SCH (09:05)
[2020-06-24] MEDS: MECLIZINE HCL 25 MG TABLET (FP) PO PRN ×2 (09:06→22:01)
[2020-06-24] MEDS: APIXABAN 2.5 MG TABLET PO SCH ×2 (09:06→22:01)
[2020-06-24] MEDS: HYDROCHLOROTHIAZIDE 25 MG TABLET (FP) PO SCH (09:06)
[2020-06-24] MEDS: BUDESONIDE/FORMETEROL FUMARATE 80/4.5 mcg INHALER IH SCH ×2 (09:06→22:48)
[2020-06-24] MEDS: levETIRAcetam 250 MG TABLET PO SCH ×2 (09:06→22:02)
[2020-06-24] MEDS: LOSARTAN POTASSIUM 50 MG TABLET PO SCH (09:06)
[2020-06-24] MEDS: FUROSEMIDE 40 MG TABLET (FP) PO SCH (09:42)
--- NOTE | 2020-06-24 09:59 | CON.NEURO ---
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 No: Cancer, COPD, O2 Dependent, Previously Intubated, Pulmonary Embolus, Pulmonary Fibrosis, Sleep Apnea Gastrointestinal: Yes: Gastritis Musculoskeletal: Yes: Other (arthritis (type not specificed)) ENT: Yes: Sinusitis Endocrine: Yes: Hypothyroidism Additional Medical History: DVTs, HPL - Past Surgical History Past Surgical History: Yes: Breast Biopsy, Hysterectomy (Possible) - Alcohol/Substance Use Hx Alcohol Use: No History of Substance Use: reports: None - Smoking History Smoking history: Never smoked Have you smoked in the past 12 months: No Aproximately how many cigarettes per day: 0 - Social History Usual Living Arrangement: With Child ADL: Independent Occupation: retired 20 yrs ago History of Recent Travel: Yes (traveled from [place]) Home Medications - Allergies Allergies/Adverse Reactions: Allergies Allergy/AdvReac Type Severity Reaction Status Date / Time Penicillins Allergy Swelling Verified 06/22/20 12:36 - Home Medications Home Medications: Ambulatory Orders Levothyroxine [Synthroid -] 25 mcg PO DAILY 04/15/17 Losartan/Hydrochlorothiazide [Losartan-Hctz 100-25 mg Tab] 1 each PO DAILY 04/15/17 Simvastatin 40 mg PO HS 06/13/17 Apixaban [Eliquis] 2.5 mg PO BID 06/11/19 levETIRAcetam [Keppra -] 750 mg PO BID 08/12/19 Meclizine HCl [Antivert -] 25 mg PO BID PRN 08/13/19 Albuterol 0.083% Nebulizer Prabha [Ventolin 0.083% Nebulizer Soln -] 1 amp NEB Q4H PRN amp 08/21/19 Montelukast Na [Singulair -] 10 mg PO HS #1 tablet 10/21/19 Pantoprazole Sodium [Protonix -] 40 mg PO DAILY 30 Days #30 tablet.ec 04/08/20 Albuterol Sulfate Inhaler - [Ventolin HFA Inhaler -] 2 puff IH Q4H PRN inhaler 05/20/20 Insulin (Levemir) [Levemir Vial] 8 units SQ HS units 05/20/20 Methylprednisolone [Medrol Dose Bladimir] 4 mg PO ASDIR #21 tablet 06/16/20 Fluticasone/Salmeterol [Advair Hfa 115-21 Mcg Inhaler] 0 inh PO BID 06/22/20 Folic Acid 1 mg PO DAILY 06/22/20 Furosemide [Lasix] 40 mg PO DAILY 06/22/20 Insulin Aspart [Novolog] 8 unit SQ AM 06/22/20 Spironolactone 0 mg PO DAILY 06/22/20 Family Medical History Family Hx Cancer: Mother (Colon cancer), Sister (BCA) Physical Exam-Neuro Vital Signs: Vital Signs Temperature 98.4 F 06/24/20 05:40 Pulse Rate 81 06/24/20 05:40 Respiratory Rate 18 06/24/20 05:40 Blood Pressure 95/52 L 06/24/20 05:40 O2 Sat by Pulse Oximetry (%) 100 06/23/20 20:41 Labs: CBC, BMP 06/23/20 06:18 06/23/20 06:18 Assessment/Plan cc Chronic headache HPI 79 year old female history of HTN, CHF, DM, hypothyroidism, asthma, COPD, Afib (on Apixiban), TIA, bilateral DVT presenting with L sided headache and ear pain started three days ago before admission. She lives in [place], visiting [employer] to see her sick . She has neurologist ( alie horton) and had mri of brain without contrast , which was unremarkable. Patient also have exacerbation of chf. Pateint has no headhace , blurring of vision or dizziness today. her ct head is normal. she denies any fever. edescribes her headache in frontal part of brain with runnign nose. ER course was notable for: (1)EKG:NSR with QTc 462 (2)CXR: poor inspiration, cardiomegaly w/ increased interstitial markings (3) Head and Temporal bone CT: final reports pending; preliminary reports negative (4)Tylenol, Duoneb and IV Lasix given Recent Travel: denies PAST MEDICAL HISTORY: as per HPI PAST SURGICAL HISTORY: hysterectomy at age 37 breast biopsy Social History: Smoking: denies Alcohol:denies Drugs: denies FAMILY HISTORY: Mom: colon cancer sister: breast cancer daughter: breast cancer Allergies Penicillins Allergy (Verified 06/22/20 12:36) Swelling HOME MEDICATIONS: Home Medications Medication Instructions Recorded Levothyroxine [Synthroid -] 25 mcg PO DAILY 04/15/17 Losartan/Hydrochlorothiazide 1 each PO DAILY 04/15/17 [Losartan-Hctz 100-25 mg Tab] Simvastatin 40 mg PO HS 06/13/17 Apixaban [Eliquis] 2.5 mg PO BID 06/11/19 levETIRAcetam [Keppra -] 750 mg PO BID 08/12/19 Meclizine HCl [Antivert -] 25 mg PO BID PRN 08/13/19 Albuterol 0.083% Nebulizer Prabha 1 amp NEB Q4H PRN amp 08/21/19 [Ventolin 0.083% Nebulizer Soln -] Montelukast Na [Singulair -] 10 mg PO HS #1 tablet 10/21/19 Pantoprazole Sodium [Protonix -] 40 mg PO DAILY 30 Days #30 04/08/20 tablet.ec Albuterol Sulfate Inhaler - 2 puff IH Q4H PRN inhaler 05/20/20 [Ventolin HFA Inhaler -] Insulin (Levemir) [Levemir Vial] 8 units SQ HS units 05/20/20 Methylprednisolone [Medrol Dose 4 mg PO ASDIR #21 tablet 06/16/20 Bladimir] Fluticasone/Salmeterol [Advair Hfa 0 inh PO BID 06/22/20 115-21 Mcg Inhaler] Folic Acid 1 mg PO DAILY 06/22/20 Furosemide [Lasix] 40 mg PO DAILY 06/22/20 Insulin Aspart [Novolog] 8 unit SQ AM 06/22/20 Spironolactone 0 mg PO DAILY 06/22/20 ROS,FH,SH reviewed in chart NEUROLOGICAL EXAMINATION Alert oriented x 3, neck is supple afebrile vss eomi, pupils reactive no face asymmetry moving all ext sensation is normal ct head is normal Assessment/Plan 79 year old female history of HTN, CHF, DM, hypothyroidism, asthma, COPD, Afib (on Apixiban), TIA, bilateral DVT presenting with headhace, seems to be tension headache vs sinus headache. -- no evidence of SAH OR meningitis, and patient is feeling back to normal - had mri ofbrain in [place] , was normal as per patient Plan-- no further recommendation ( mri of brain or spinal tap) at this time, her symptoms resolved - follow up with her neurologist or outpatient - can be discharged from neurological point of view Thanking you so much Jack Pardo MD
--- NOTE | 2020-06-24 12:21 | PN ---
Progress Note (short form) - Note Progress Note: Consult Specialty:: Cardiology Referred by:: Dr Freed Reason for Consultation:: SOB - History of Present Illness Chief Complaint: Patient is an 79 year old woman with of Penicillin allergy, Asthma, COPD, Afib (on Eliquis), TIA, Hypothyroidism and bilateral DVTs who presents to the ER with complaint of SOB, bilateral LE swelling and headache since last week. Patient was seen at [facility] (06/16/20) a week ago for headache, SOB, and BLE edema. Patient had bloodwork and imaging and discharged on Medrol pack and Z-victor hugo. Has associated swelling around her ankles, band-like headaches at forehead, an episode of vertigo (described as the "world spinning") and a few episodes of "blacked out vision". Has a rash in her left ear. Patient denies chest pain, abdominal pain, palpitations, dizziness, fever, chills, nausea, vomiting, diarrhea, constipation, dysuria, frequency, urgency, melena, hematochezia or hematuria. Denies alcohol, tobacco or illicit drug use. No sick contacts or recent travels. Family history of colon cancer in mother; breast cancer in sister and daughter. History of Present Illness: Pt sees Dr Abbott of [facility]. sees Dr Heydi Marcial for cardiology. s: no sob palps dizzy cp Current Medications Generic Name Dose Route Start Last Admin Trade Name Freq PRN Reason Stop Dose Admin Albuterol Sulfate 1 amp 06/23/20 21:14 Ventolin 0.083% Nebulizer Soln - NEB Q4H PRN SHORT OF BREATH/WHEEZING Albuterol Sulfate 2 puff 06/23/20 21:15 Ventolin Hfa Inhaler - IH Q4H PRN SHORT OF BREATH/WHEEZING Apixaban 2.5 mg 06/23/20 22:00 06/24/20 09:06 Eliquis - PO 2.5 mg BID LUIZA Administration Atorvastatin Calcium 20 mg 06/23/20 22:00 06/23/20 22:47 Lipitor - PO 20 mg HS LUIZA Administration Budesonide/Formoterol Fumarate 2 puff 06/23/20 22:00 06/24/20 09:06 Symbicort 80/4.5mcg - IH 2 puff BID LUIZA Administration Folic Acid 1 mg 06/24/20 10:00 06/24/20 09:05 Folic Acid - PO 1 mg DAILY LUIZA Administration Furosemide 40 mg 06/24/20 10:00 06/24/20 09:42 Lasix - PO 40 mg DAILY LUIZA Administration Hydrochlorothiazide 25 mg 06/24/20 10:00 06/24/20 09:06 Hctz - PO 25 mg DAILY LUIZA Administration Insulin Detemir 8 units 06/23/20 22:00 06/23/20 22:48 Levemir Vial SQ 8 units HS LUIZA Administration Levetiracetam 750 mg 06/23/20 22:00 06/24/20 09:06 Keppra - PO 750 mg BID LUIZA Administration Levothyroxine Sodium 25 mcg 06/24/20 07:00 06/24/20 06:14 Synthroid - PO 25 mcg DAILY@0700 LUIZA Administration Losartan Potassium 100 mg 06/24/20 10:00 06/24/20 09:06 Cozaar - PO 100 mg DAILY LUIZA Administration Meclizine HCl 25 mg 06/23/20 21:17 06/24/20 09:06 Antivert - PO 25 mg Q12H PRN Administration VERTIGO Montelukast Sodium 10 mg 06/23/20 22:00 06/23/20 22:48 Singulair - PO 10 mg HS LUIZA Administration Pantoprazole Sodium 40 mg 06/24/20 10:00 06/24/20 09:05 Protonix - PO 40 mg DAILY LUIZA Administration Spironolactone 25 mg 06/24/20 10:00 06/24/20 09:05 Aldactone - PO 25 mg DAILY LUIZA Administration Vital Signs Period Temp Pulse Resp BP Sys/Sexton Pulse Ox Last 24 Hr 97.7 F-9801 F 81-118 17-24 95-126/51-107 99-100 Constitutional: Yes: No Distress, Calm Eyes: Yes: Conjunctiva Clear Neck: Yes: Supple, Trachea Midline Respiratory: Yes: Other (mild expiratory wheezing, no rales.) Gastrointestinal: Yes: Soft (nt), Abdomen, Obese Cardiovascular: Yes: Regular Rate and Rhythm, Other (systolic murmur RSB, non radiating) JVD: No Heart Sounds: Yes: S1, S2 Murmur: Yes: Systolic Murmur Edema: No Peripheral Pulses WNL: Yes Neurological: Yes: Alert, Oriented no jaundice diaphoresis - Other Data Labs, Other Data: CBC, BMP 06/23/20 06:18 06/23/20 06:18 NSR 88bpm, no acute ST changes Echo: Report Reviewed (Fall 2018: Normal LVEF, diastolic dysfx, mild to moderate , mod-severe TR with moderate PHTN) Stress Echo: Report Reviewed (2018 Nuclear stress [place] WNL- see prior notes from admissions) Ejection Fraction %: LVEF > or = 40 % Imaging - Results EKG: Image Reviewed Assessment/Plan IMP/PLAN: Chronic FIERRO: h/o asthma: -multiple prior normal nuclear stress tests ([place] 2018) and one recently at [facility] per recent records (prior admits) -Patient had been recommended cath for definitive cor assessment, but refused -Has been following with Dr. Marcial at [facility] -Suspect mild flare of acute asthma now Afib: as per records, need to confirm hx with daughter -sinus here -not on AVN blockers at home--no change -cont home Eliquis 2.5 bid (indicated dose is 5mg based on her wt/creatinine, however she is following with outside cardio hence will not change plan) -Previously on this for h/o DVTs (not AF) HTN: -cont losartan, HCTZ home regimen h/o TIA: -on AC, statin at home--continue same h/o DVTs: -AC per outside MDs' plan SOB: chronic -diastolic dysfx on echo 06/2019 and chronic PHTN (likely due to longstanding asthma) -BNP and CXR normal -She does report b/l LE edema which may be secondary to right sided failure from PHTN -will now transition from iv lasix to PO Lasix Mild to moderate : -F/u echo ordered Moderate chronic PHTN: -As above -Likely due to chronic asthma.
--- NOTE | 2020-06-24 14:00 | PN ---
Progress Note, Physician History of Present Illness: patient seen and examined. Chart is reviewed. Awake and comfortable Mild anxiety present no distress All follow-ups noted and appreciated - Current Medication List Current Medications: Active Medications Albuterol Sulfate (Ventolin 0.083% Nebulizer Soln -) 1 amp NEB Q4H PRN PRN Reason: SHORT OF BREATH/WHEEZING Albuterol Sulfate (Ventolin Hfa Inhaler -) 2 puff IH Q4H PRN PRN Reason: SHORT OF BREATH/WHEEZING Apixaban (Eliquis -) 2.5 mg PO BID [facility] Last Admin: 06/24/20 09:06 Dose: 2.5 mg Documented by: Atorvastatin Calcium (Lipitor -) 20 mg PO [facility] Last Admin: 06/23/20 22:47 Dose: 20 mg Documented by: Budesonide/Formoterol Fumarate (Symbicort 80/4.5mcg -) 2 puff IH BID [facility] Last Admin: 06/24/20 09:06 Dose: 2 puff Documented by: Folic Acid (Folic Acid -) 1 mg PO DAILY [facility] Last Admin: 06/24/20 09:05 Dose: 1 mg Documented by: Furosemide (Lasix -) 40 mg PO DAILY [facility] Last Admin: 06/24/20 09:42 Dose: 40 mg Documented by: Hydrochlorothiazide (Hctz -) 25 mg PO DAILY [facility] Last Admin: 06/24/20 09:06 Dose: 25 mg Documented by: Insulin Detemir (Levemir Vial) 8 units SQ [facility] Last Admin: 06/23/20 22:48 Dose: 8 units Documented by: Levetiracetam (Keppra -) 750 mg PO BID [facility] Last Admin: 06/24/20 09:06 Dose: 750 mg Documented by: Levothyroxine Sodium (Synthroid -) 25 mcg PO DAILY@0700 [facility] Last Admin: 06/24/20 06:14 Dose: 25 mcg Documented by: Losartan Potassium (Cozaar -) 100 mg PO DAILY [facility] Last Admin: 06/24/20 09:06 Dose: 100 mg Documented by: Meclizine HCl (Antivert -) 25 mg PO Q12H PRN PRN Reason: VERTIGO Last Admin: 06/24/20 09:06 Dose: 25 mg Documented by: Methylprednisolone Sodium Succinate (Solu-Medrol -) 40 mg IVPUSH Q8H-IV [facility] Montelukast Sodium (Singulair -) 10 mg PO HS [facility] Last Admin: 06/23/20 22:48 Dose: 10 mg Documented by: Pantoprazole Sodium (Protonix -) 40 mg PO DAILY [facility] Last Admin: 06/24/20 09:05 Dose: 40 mg Documented by: Spironolactone (Aldactone -) 25 mg PO DAILY [facility] Last Admin: 06/24/20 09:05 Dose: 25 mg Documented by: - Objective Vital Signs: Vital Signs Temperature 97.7 F 06/24/20 10:00 Pulse Rate 94 H 06/24/20 11:40 Respiratory Rate 06/24/20 11:40 Blood Pressure 114/62 06/24/20 11:40 O2 Sat by Pulse Oximetry (%) 99 06/24/20 10:00 Constitutional: Yes: No Distress, Anxious Neck: Yes: Supple Respiratory: Yes: Wheezes. No: Rhonchi Gastrointestinal: Yes: Soft Edema: No Neurological: Yes: Alert Labs: CBC, BMP 06/23/20 06:18 06/23/20 06:18 Problem List - Problems (1) SOB (shortness of breath) Code(s): R06.02 - SHORTNESS OF BREATH (2) Acute exacerbation of mild persistent extrinsic asthma Code(s): J45.31 - MILD PERSISTENT ASTHMA WITH (ACUTE) EXACERBATION (3) Anxiety Code(s): F41.9 - ANXIETY DISORDER, UNSPECIFIED Assessment/Plan discussed with nursing staff continue present care Short course of steroids Monitor lites physical therapy Daily out of bed to chair We will continue to follow
[2020-06-24] MEDS: methylPREDNISolone NA SUCC 40 MG/1 ML VIAL IVPUSH SCH ×2 (15:23→18:04)
--- NOTE | 2020-06-24 15:33 | ECHO ---
Name: FRANCIS CANNONNIKKI HOLLAND Exam:Adult Echocardiogram Study Date: 06/24/2020 10:48 AM Age: 79 yrs Height: 61 in Weight: 160 lb BSA: 1.7 m2 MMode/2D Measurements & Calculations IVSd: 0.83 cm Ao root diam: 2.7 cm LVIDd: 2.7 cm LA dimension: 3.4 cm LVIDs: 2.1 cm ACS: 1.4 cm LVPWd: 1.1 cm LVPWs: 1.3 cm EDV(Teich): 28.2 ml ESV(Teich): 14.0 ml LVOT diam: 1.9 cm RV S Yash: 10.3 cm/sec Doppler Measurements & Calculations MV E max yash: 79.5 cm/sec Ao V2 max: 267.5 cm/sec MV A max yash: 119.9 cm/sec Ao max P.6 mmHg MV E/A: 0.66 Ao V2 mean: 184.4 cm/sec MV dec time: 0.20 sec Ao mean P.7 mmHg Ao V2 VTI: 53.4 cm MERCEDEZ(I,D): 0.85 cm2 MERCEDEZ(V,D): 0.96 cm2 LV V1 max P.7 mmHg MR max yash: 519.3 cm/sec LV V1 mean P.0 mmHg MR max P.9 mmHg LV V1 max: 95.8 cm/sec LV V1 mean: 66.6 cm/sec LV V1 VTI: 16.9 cm SV(LVOT): 45.5 ml TR max yash: 250.9 cm/sec TR max P.2 mmHg PA V2 max: 114.7 cm/sec Med Peak E' Yash: 7.3 cm/sec PA max P.3 mmHg Med E/e': 10.8 Lat Peak E' Yash: 10.6 cm/sec Lat E/e': 7.5 Procedure A complete two-dimensional transthoracic echocardiogram was performed (2D, M-mode, Doppler and color flow Doppler). Left Ventricle The left ventricle is normal in size. Left ventricular systolic function is normal. Ejection Fraction = 60- 65%. No regional wall motion abnormalities noted. Right Ventricle The right ventricle is normal size. The right ventricular systolic function is normal. Atria The left atrium is mildly dilated. Right atrial size is normal. Mitral Valve There is moderate mitral annular calcification. There is mild mitral regurgitation. Tricuspid Valve The tricuspid valve is normal in structure and function. There is mild tricuspid regurgitation. Right ventricular systolic pressure is normal. Aortic Valve There is moderate aortic valve thickening. Moderate to severe valvular aortic stenosis. The calculate d aortic valve area using the continuity equation is 0.7 cm2. Aortic mean pressure gradient= 20 mmHg. DI (dime nsionless index) is 0.26. No aortic regurgitation is present. Pulmonic Valve The pulmonic valve is not well seen, but is grossly normal. Mild pulmonic valvular regurgitation. Great Vessels The aortic root is normal size. Pericardium/Pleura There is no pericardial effusion. Interpretation Summary The left ventricle is normal in size. Left ventricular systolic function is normal. No regional wall motion abnormalities noted. Ejection Fraction = 60-65%. The left atrium is mildly dilated. There is moderate mitral annular calcification. There is mild mitral regurgitation. There is mild tricuspid regurgitation. There is moderate aortic valve thickening. Moderate to severe valvular aortic stenosis. The calculated aortic valve area using the continuity equation is 0.7 cm2. Aortic mean pressure gradient= 20 mmHg DI (dimensionless index) is 0.26 No aortic regurgitation is present. Mild pulmonic valvular regurgitation. There is no pericardial effusion. Jarocho Veronica MD 06/24/2020 03:32 PM
[2020-06-24] MEDS: ATORVASTATIN CA 20 MG TABLET (FP) PO SCH (22:01)
[2020-06-24] MEDS: INSULIN (LEVEMIR) 100 UNITS/ML UNITS SQ SCH (22:02)
[2020-06-24] MEDS: MONTELUKAST NA 10 MG TABLET PO SCH (22:02)
[2020-06-25] MEDS: methylPREDNISolone NA SUCC 40 MG/1 ML VIAL IVPUSH SCH ×3 (02:05→22:17)
[2020-06-25] MEDS: LEVOTHYROXINE NA 25 MCG TABLET (FP) PO SCH (06:17)
[2020-06-25] MEDS: ALBUTEROL SO4 0.083% IH SOL 2.5 MG/3 ML VIAL.NEB. NEB PRN ×3 (09:00→22:38)
[2020-06-25] MEDS: FUROSEMIDE 40 MG TABLET (FP) PO SCH (09:42)
[2020-06-25] MEDS: APIXABAN 2.5 MG TABLET PO SCH ×2 (09:42→22:16)
[2020-06-25] MEDS: SPIRONOLACTONE 25 MG TABLET PO SCH (09:42)
[2020-06-25] MEDS: FOLIC ACID 1 MG TABLET (FP) PO SCH (09:42)
[2020-06-25] MEDS: PANTOPRAZOLE 40 MG TABLET PO SCH (09:42)
[2020-06-25] MEDS: levETIRAcetam 250 MG TABLET PO SCH ×2 (09:42→22:16)
[2020-06-25] MEDS: HYDROCHLOROTHIAZIDE 25 MG TABLET (FP) PO SCH (09:42)
[2020-06-25] MEDS: MECLIZINE HCL 25 MG TABLET (FP) PO PRN ×2 (09:43→22:17)
[2020-06-25] MEDS: LOSARTAN POTASSIUM 50 MG TABLET PO SCH (09:43)
[2020-06-25] MEDS: BUDESONIDE/FORMETEROL FUMARATE 80/4.5 mcg INHALER IH SCH ×2 (09:43→22:27)
--- NOTE | 2020-06-25 12:13 | PN ---
Progress Note (short form) - Note Progress Note: pt anxious sob+ better with nebs Vital Signs - 24 hr 06/24/20 06/24/20 06/24/20 15:00 19:40 21:00 Temperature 97.8 F 98.9 F Pulse Rate 91 H 84 Respiratory 18 18 18 Rate Blood Pressure 92/42 L 95/48 L O2 Sat by Pulse 97 96 97 Oximetry (%) 06/25/20 06/25/20 06/25/20 01:00 05:00 09:00 Temperature 97.7 F 97.8 F Pulse Rate 79 80 Respiratory 18 Rate Blood Pressure 105/47 L 112/57 L O2 Sat by Pulse 97 99 97 Oximetry (%) 06/25/20 11:00 Temperature 99.7 F H Pulse Rate 98 H Respiratory 18 Rate Blood Pressure 109/70 O2 Sat by Pulse 97 Oximetry (%) Current Medications Generic Name Dose Route Start Last Admin Trade Name Freq PRN Reason Stop Dose Admin Albuterol Sulfate 1 amp 06/23/20 21:14 06/25/20 12:17 Ventolin 0.083% Nebulizer Soln - NEB 1 amp Q4H PRN Administration SHORT OF BREATH/WHEEZING Albuterol Sulfate 2 puff 06/23/20 21:15 Ventolin Hfa Inhaler - IH Q4H PRN SHORT OF BREATH/WHEEZING Apixaban 2.5 mg 06/23/20 22:00 06/25/20 09:42 Eliquis - PO 2.5 mg BID LUIZA Administration Aripiprazole 5 mg 06/25/20 12:30 Abilify PO DAILY LUIZA Atorvastatin Calcium 20 mg 06/23/20 22:00 06/24/20 22:01 Lipitor - PO 20 mg HS LUIZA Administration Budesonide/Formoterol Fumarate 2 puff 06/23/20 22:00 06/25/20 09:43 Symbicort 80/4.5mcg - IH 2 puff BID LUIZA Administration Folic Acid 1 mg 06/24/20 10:00 06/25/20 09:42 Folic Acid - PO 1 mg DAILY LUIZA Administration Furosemide 40 mg 06/24/20 10:00 06/25/20 09:42 Lasix - PO 40 mg DAILY LUIZA Administration Hydrochlorothiazide 25 mg 06/24/20 10:00 06/25/20 09:42 Hctz - PO 25 mg DAILY LUIZA Administration Insulin Aspart 0 units 06/25/20 16:30 Novolog Vial SQ [facility] Protocol Insulin Detemir 8 units 06/23/20 22:00 06/24/20 22:02 Levemir Vial SQ 8 units HS LUIZA Administration Levetiracetam 750 mg 06/23/20 22:00 06/25/20 09:42 Keppra - PO 750 mg BID LUIZA Administration Levothyroxine Sodium 25 mcg 06/24/20 07:00 06/25/20 06:17 Synthroid - PO 25 mcg DAILY@0700 LUIZA Administration Losartan Potassium 100 mg 06/24/20 10:00 06/25/20 09:43 Cozaar - PO 100 mg DAILY LUIZA Administration Meclizine HCl 25 mg 06/23/20 21:17 06/25/20 09:43 Antivert - PO 25 mg Q12H PRN Administration VERTIGO Methylprednisolone Sodium Succinate 40 mg 06/25/20 12:30 Solu-Medrol - IVPUSH Q12H LUIZA Montelukast Sodium 10 mg 06/23/20 22:00 06/24/20 22:02 Singulair - PO 10 mg HS LUIZA Administration Pantoprazole Sodium 40 mg 06/24/20 10:00 06/25/20 09:42 Protonix - PO 40 mg DAILY LUIZA Administration Spironolactone 25 mg 06/24/20 10:00 06/25/20 09:42 Aldactone - PO 25 mg DAILY LUIZA Administration Laboratory Results - last 24 hr 06/24/20 06/24/20 06/25/20 16:41 22:00 11:50 POC Glucometer 136 226 213 S1 S2 RRR Lungs ronchi+ Abd- soft, NT edema+ PLAN CHF Asthma DM HTN Headaches -- CT head and temporal CT noted -- short course steroid -- nebs -- po lasix -- decrease solumedrol -- dc planning for tomorrow -- PT eval -- on home o2 -- restarted Abilify-- was seen by Psychiatry last admission Problem List - Problems (1) Acute exacerbation of mild persistent extrinsic asthma Code(s): J45.31 - MILD PERSISTENT ASTHMA WITH (ACUTE) EXACERBATION (2) Hypertension Code(s): I10 - ESSENTIAL (PRIMARY) HYPERTENSION (3) Hypothyroid Code(s): E03.9 - HYPOTHYROIDISM, UNSPECIFIED
[2020-06-25] MEDS ORDERED: methylPREDNISolone NA SUCC 40 MG/1 ML VIAL IVPUSH SCH (12:30)
--- NOTE | 2020-06-25 12:54 | PN ---
Progress Note (short form) - Note Progress Note: cc: dyspnea, edema s: no chest pain, palps, dizziness, dyspnea. Current Medications Generic Name Dose Route Start Last Admin Trade Name Freq PRN Reason Stop Dose Admin Albuterol Sulfate 1 amp 06/23/20 21:14 06/25/20 12:17 Ventolin 0.083% Nebulizer Soln - NEB 1 amp Q4H PRN Administration SHORT OF BREATH/WHEEZING Albuterol Sulfate 2 puff 06/23/20 21:15 Ventolin Hfa Inhaler - IH Q4H PRN SHORT OF BREATH/WHEEZING Apixaban 2.5 mg 06/23/20 22:00 06/25/20 09:42 Eliquis - PO 2.5 mg BID LUIZA Administration Aripiprazole 5 mg 06/25/20 12:30 Abilify PO DAILY LUIZA Atorvastatin Calcium 20 mg 06/23/20 22:00 06/24/20 22:01 Lipitor - PO 20 mg HS LUIZA Administration Budesonide/Formoterol Fumarate 2 puff 06/23/20 22:00 06/25/20 09:43 Symbicort 80/4.5mcg - IH 2 puff BID LUIZA Administration Folic Acid 1 mg 06/24/20 10:00 06/25/20 09:42 Folic Acid - PO 1 mg DAILY LUIZA Administration Furosemide 40 mg 06/24/20 10:00 06/25/20 09:42 Lasix - PO 40 mg DAILY LUIZA Administration Hydrochlorothiazide 25 mg 06/24/20 10:00 06/25/20 09:42 Hctz - PO 25 mg DAILY LUIZA Administration Insulin Aspart 0 units 06/25/20 16:30 Novolog Vial SQ TIDAC [facility] Protocol Insulin Detemir 8 units 06/23/20 22:00 06/24/20 22:02 Levemir Vial SQ 8 units HS LUIZA Administration Levetiracetam 750 mg 06/23/20 22:00 06/25/20 09:42 Keppra - PO 750 mg BID LUIZA Administration Levothyroxine Sodium 25 mcg 06/24/20 07:00 06/25/20 06:17 Synthroid - PO 25 mcg DAILY@0700 LUIZA Administration Losartan Potassium 100 mg 06/24/20 10:00 06/25/20 09:43 Cozaar - PO 100 mg DAILY LUIZA Administration Meclizine HCl 25 mg 06/23/20 21:17 06/25/20 09:43 Antivert - PO 25 mg Q12H PRN Administration VERTIGO Methylprednisolone Sodium Succinate 40 mg 06/25/20 12:30 Solu-Medrol - IVPUSH Q12H LUIZA Montelukast Sodium 10 mg 06/23/20 22:00 06/24/20 22:02 Singulair - PO 10 mg HS LUIZA Administration Pantoprazole Sodium 40 mg 06/24/20 10:00 06/25/20 09:42 Protonix - PO 40 mg DAILY LUIZA Administration Spironolactone 25 mg 06/24/20 10:00 06/25/20 09:42 Aldactone - PO 25 mg DAILY LUIZA Administration Vital Signs Period Temp Pulse Resp BP Sys/Sexton Pulse Ox Last 24 Hr 97.7 F-98.9 F 79-95 18-20 92-112/42-57 96-99 Constitutional: Yes: No Distress, Calm Eyes: Yes: Conjunctiva Clear Neck: Yes: Supple, Trachea Midline Respiratory: Yes: Other (mild expiratory wheezing, no rales.) Gastrointestinal: Yes: Soft (nt), Abdomen, Obese Cardiovascular: Yes: Regular Rate and Rhythm, Other (systolic murmur RSB, non radiating) JVD: No Heart Sounds: Yes: S1, S2 Murmur: Yes: Systolic Murmur Edema: No Peripheral Pulses WNL: Yes Neurological: Yes: Alert, Oriented no jaundice diaphoresis Laboratory Last Values WBC 12.8 K/mm3 (4.0-10.0) H 06/23/20 06:18 RBC 4.31 M/mm3 (3.60-5.2) 06/23/20 06:18 Hgb 12.4 GM/dL (10.7-15.3) 06/23/20 06:18 Hct 38.2 % (32.4-45.2) 06/23/20 06:18 MCV 88.6 fl (80-96) 06/23/20 06:18 MCH 28.8 pg (25.7-33.7) 06/23/20 06:18 MCHC 32.5 g/dl (32.0-36.0) 06/23/20 06:18 RDW 17.2 % (11.6-15.6) H 06/23/20 06:18 Plt Count 226 K/MM3 (134-434) 06/23/20 06:18 MPV 9.0 fl (7.5-11.1) 06/23/20 06:18 Absolute Neuts (auto) 8.7 K/mm3 (1.5-8.0) H 06/23/20 06:18 Neutrophils % 67.9 % (42.8-82.8) D 06/23/20 06:18 Neutrophils % (Manual) 87.4 % (42.8-82.8) H 06/22/20 14:05 Band Neutrophils % 0.0 % 06/22/20 14:05 Lymphocytes % 20.1 % (8-40) D 06/23/20 06:18 Lymphocytes % (Manual) 7.8 % (8-40) L D 06/22/20 14:05 Monocytes % 9.0 % (3.8-10.2) D 06/23/20 06:18 Monocytes % (Manual) 2 % (3.8-10.2) L 06/22/20 14:05 Eosinophils % 2.3 % (0-4.5) D 06/23/20 06:18 Eosinophils % (Manual) 0.0 % (0-4.5) 06/22/20 14:05 Basophils % 0.7 % (0-2.0) 06/23/20 06:18 Basophils % (Manual) 0.0 % (0-2.0) 06/22/20 14:05 Myelocytes % (Man) 2 % (0-2) D 06/22/20 14:05 Promyelocytes % (Man) 0 % (0-2) 06/22/20 14:05 Blast Cells % (Manual) 0 % (0-0) 06/22/20 14:05 Nucleated RBC % 0 % (0-0) 06/23/20 06:18 Metamyelocytes 1 % (0-2) 06/22/20 14:05 Hypochromia 0 06/22/20 14:05 Platelet Estimate Normal 06/22/20 14:05 Polychromasia 0 06/22/20 14:05 Poikilocytosis 0 06/22/20 14:05 Anisocytosis 0 06/22/20 14:05 Microcytosis 0 06/22/20 14:05 Macrocytosis 0 06/22/20 14:05 Sodium 145 mmol/L (136-145) 06/23/20 06:18 Potassium 4.1 mmol/L (3.5-5.1) 06/23/20 06:18 Chloride 104 mmol/L (98-107) 06/23/20 06:18 Carbon Dioxide 34 mmol/L (21-32) H 06/23/20 06:18 Anion Gap 6 MMOL/L (8-16) L 06/23/20 06:18 BUN 30.9 mg/dL (7-18) H 06/23/20 06:18 Creatinine 1.0 mg/dL (0.55-1.3) 06/23/20 06:18 Est GFR (CKD-EPI)AfAm 61.62 06/23/20 06:18 Est GFR (CKD-EPI)NonAf 53.17 06/23/20 06:18 POC Glucometer 213 UNITS (80-120) 06/25/20 11:50 Random Glucose 125 mg/dL (74-106) H 06/23/20 06:18 Hemoglobin A1c % 7.1 % (4.2-6.3) H 06/23/20 06:18 Calcium 9.2 mg/dL (8.5-10.1) 06/23/20 06:18 Phosphorus 4.7 mg/dL (2.5-4.9) 06/23/20 06:18 Magnesium 2.2 mg/dL (1.8-2.4) 06/23/20 06:18 Total Bilirubin 0.7 mg/dL (0.2-1) 06/23/20 06:18 AST 15 U/L (15-37) 06/23/20 06:18 ALT 18 U/L (13-61) 06/23/20 06:18 Alkaline Phosphatase 73 U/L (45-117) 06/23/20 06:18 B-Natriuretic Peptide 344.5 pg/ml (5-450) 06/22/20 14:05 Total Protein 6.2 g/dl (6.4-8.2) L 06/23/20 06:18 Albumin 3.3 g/dl (3.4-5.0) L 06/23/20 06:18 TSH 2.14 uIU/ml (0.358-3.74) 06/23/20 06:18 Urine Color Yellow 06/23/20 00:18 Urine Appearance Clear 06/23/20 00:18 Urine pH 5.5 (5.0-8.0) 06/23/20 00:18 Ur Specific Anderson 1.009 (1.010-1.035) L 06/23/20 00:18 Urine Protein Negative (NEGATIVE) 06/23/20 00:18 Urine Glucose (UA) Negative (NEGATIVE) 06/23/20 00:18 Urine Ketones Negative (NEGATIVE) 06/23/20 00:18 Urine Blood Negative (NEGATIVE) 06/23/20 00:18 Urine Nitrite Positive (NEGATIVE) H 06/23/20 00:18 Urine Bilirubin Negative (NEGATIVE) 06/23/20 00:18 Urine Urobilinogen 0.2 mg/dL (0.2-1.0) 06/23/20 00:18 Ur Leukocyte Esterase Negative (NEGATIVE) 06/23/20 00:18 Urine WBC (Auto) 7 /uL (0-25.8) 06/23/20 00:18 Urine RBC (Auto) 1 /uL (0-23.9) 06/23/20 00:18 Urine Casts (Auto) 1 /uL (0-3.1) 06/23/20 00:18 U Epithel Cells (Auto) 2 /uL (0-25.1) 06/23/20 00:18 COVID-19 (OCTAVIO) Not detected (Not Detected) 06/22/20 21:10 NSR 88bpm, no acute ST changes Echo: Report Reviewed (Fall 2018: Normal LVEF, diastolic dysfx, mild to moderate , mod-severe TR with moderate PHTN) Stress Echo: Report Reviewed (2018 Nuclear stress [place] WNL- see prior notes from a dmissions) Ejection Fraction %: LVEF > or = 40 % Imaging - Results EKG: Image Reviewed echo 05/2020 nl LV/RV function, mod MAC, mild MR, mild TR, mod to severe , MERCEDEZ 0.7 cm2, mean gradient 20 mmHg, DI 0.26, mild IA, no AR Assessment/Plan IMP/PLAN: Chronic FIERRO: h/o asthma: -multiple prior normal nuclear stress tests ([place] 2018) and one recently at [facility] per recent records (prior admits) -Patient had been recommended cath for definitive cor assessment, but refused -Has been following with Dr. Marcial at [facility] -Suspect mild flare of acute asthma now, manage per primary Afib: as per records -sinus here -not on AVN blockers at home--no change -cont home Eliquis 2.5 bid (indicated dose is 5mg based on her wt/creatinine, however she is following with outside cardio hence will not change plan) -Previously on this for h/o DVTs (not AF) HTN: -cont losartan, HCTZ home regimen h/o TIA: -on AC, statin at home--continue same h/o DVTs: -AC per outside MDs' plan SOB: chronic -diastolic dysfx on echo 06/2019 and chronic PHTN (likely due to longstanding asthma) -BNP and CXR normal -She does report b/l LE edema which may be secondary to right sided failure from PHTN -diuresed on IV lasix, now transitioned to PO Lasix, continue moderate to severe : -MERCEDEZ 0.7 cm2, mean gradient 20 mmHg, DI 0.26 - outpatient follow up with Dr. Marcial Moderate chronic PHTN: -As above -Likely due to chronic asthma.
--- NOTE | 2020-06-25 15:27 | PN ---
Progress Note (short form) - Note Progress Note: 79 year old female history of HTN, CHF, DM, hypothyroidism, asthma, COPD, Afib (on Apixiban), TIA, bilateral DVT presenting with L sided headache and ear pain started three days ago before admission. She lives in [place], visiting [place] to see her sick . She has neurologist ( alie horton) and had mri of brain without contrast , which was unremarkable. Patient also have exacerbation of chf. Pateint has no headhace , blurring of vision or dizziness today. her ct head is normal. she denies any fever. -- denies ny headhace or dizziness, was sob in morning and was given broncho dilator NEUROLOGICAL EXAMINATION Alert oriented x 3, neck is supple afebrile vss eomi, pupils reactive no face asymmetry moving all ext sensation is normal ct head is normal Assessment/Plan 79 year old female history of HTN, CHF, DM, hypothyroidism, asthma, COPD, Afib (on Apixiban), TIA, bilateral DVT presenting with headhace, seems to be tension headache vs sinus headache. -- no evidence of SAH OR meningitis, and patient is feeling back to normal - had mri ofbrain in [place] , was normal as per patient Plan-- no further recommendation ( mri of brain or spinal tap) at this time, her symptoms resolved - patient can be discharged from neurological point of view Thanking you so much Jack Pardo MD
[2020-06-25] MEDS: INSULIN (NOVOLOG) ASPART 100 UNITS/ML 10ML VIAL SQ SCH (16:51)
[2020-06-25] MEDS: ARIPiprazole 5 MG TABLET PO SCH (16:53)
[2020-06-25] MEDS ORDERED: INSULIN (NOVOLOG) ASPART 100 UNITS/ML 10ML VIAL ONE (22:10)
[2020-06-25] MEDS: ATORVASTATIN CA 20 MG TABLET (FP) PO SCH (22:16)
[2020-06-25] MEDS: MONTELUKAST NA 10 MG TABLET PO SCH (22:16)
[2020-06-25] MEDS: INSULIN (LEVEMIR) 100 UNITS/ML UNITS SQ SCH (22:19)
[2020-06-26] MEDS ORDERED: diphenhydrAMINE HCL 25 MG CAPSULE (FP) PO ONE (02:03)
[2020-06-26] MEDS ORDERED: INSULIN (NOVOLOG) ASPART 100 UNITS/ML 10ML VIAL ONE ×2 (06:11→17:02)
[2020-06-26] MEDS: INSULIN (NOVOLOG) ASPART 100 UNITS/ML 10ML VIAL SQ SCH ×3 (06:12→17:16)
[2020-06-26] MEDS: LEVOTHYROXINE NA 25 MCG TABLET (FP) PO SCH (06:13)
[2020-06-26] MEDS: ALBUTEROL SO4 0.083% IH SOL 2.5 MG/3 ML VIAL.NEB. NEB PRN ×4 (06:33→20:21)
--- NOTE | 2020-06-26 09:45 | PN ---
Progress Note (short form) - Note Progress Note: 79 year old female history of HTN, CHF, DM, hypothyroidism, asthma, COPD, Afib (on Apixiban), TIA, bilateral DVT presenting with L sided headache and ear pain started three days ago before admission. She lives in [place], visiting [place] to see her sick . She has neurologist ( alie horton) and had mri of brain without contrast , which was unremarkable. Patient also have exacerbation of chf. Pateint has no headhace , blurring of vision or dizziness today. her ct head is normal. she denies any fever. -- denies ny headhace or dizziness, still sob and getting bronchodilator NEUROLOGICAL EXAMINATION Alert oriented x 3, neck is supple afebrile vss eomi, pupils reactive no face asymmetry moving all ext sensation is normal ct head is normal Assessment/Plan 79 year old female history of HTN, CHF, DM, hypothyroidism, asthma, COPD, Afib (on Apixiban), TIA, bilateral DVT presenting with headhace, seems to be tension headache vs sinus headache. -- no evidence of SAH OR meningitis, and patient is feeling back to normal - had mri ofbrain in [place] , was normal as per patient Plan-- no further recommendation ( mri of brain or spinal tap) at this time, her symptoms resolved - no focal neurological symptoms Thanking you so muc Jack Pardo MD
[2020-06-26] MEDS ORDERED: PT OWN MED DRAWER 7, Y5N ONE (10:28)
[2020-06-26] MEDS: SPIRONOLACTONE 25 MG TABLET PO SCH (10:47)
[2020-06-26] MEDS: HYDROCHLOROTHIAZIDE 25 MG TABLET (FP) PO SCH (10:47)
[2020-06-26] MEDS: FUROSEMIDE 40 MG TABLET (FP) PO SCH (10:47)
[2020-06-26] MEDS: FOLIC ACID 1 MG TABLET (FP) PO SCH (10:47)
[2020-06-26] MEDS: APIXABAN 2.5 MG TABLET PO SCH ×2 (10:48→21:59)
[2020-06-26] MEDS: levETIRAcetam 250 MG TABLET PO SCH ×2 (10:48→21:59)
[2020-06-26] MEDS: ARIPiprazole 5 MG TABLET PO SCH (10:48)
[2020-06-26] MEDS: LOSARTAN POTASSIUM 50 MG TABLET PO SCH (10:48)
[2020-06-26] MEDS: PANTOPRAZOLE 40 MG TABLET PO SCH (10:48)
[2020-06-26] MEDS: methylPREDNISolone NA SUCC 40 MG/1 ML VIAL IVPUSH SCH ×2 (10:48→21:59)
[2020-06-26] MEDS: BUDESONIDE/FORMETEROL FUMARATE 80/4.5 mcg INHALER IH SCH ×2 (10:49→23:00)
--- NOTE | 2020-06-26 12:12 | PN ---
Progress Note (short form) - Note Progress Note: cc: dyspnea, edema s: no chest pain, palps, dizziness, dyspnea. Current Medications Generic Name Dose Route Start Last Admin Trade Name Freq PRN Reason Stop Dose Admin Albuterol Sulfate 1 amp 06/23/20 21:14 06/26/20 09:10 Ventolin 0.083% Nebulizer Soln - NEB 1 amp Q4H PRN Administration SHORT OF BREATH/WHEEZING Albuterol Sulfate 2 puff 06/23/20 21:15 Ventolin Hfa Inhaler - IH Q4H PRN SHORT OF BREATH/WHEEZING Apixaban 2.5 mg 06/23/20 22:00 06/26/20 10:48 Eliquis - PO 2.5 mg BID LUIZA Administration Aripiprazole 5 mg 06/25/20 12:30 06/26/20 10:48 Abilify PO 5 mg DAILY LUIZA Administration Atorvastatin Calcium 20 mg 06/23/20 22:00 06/25/20 22:16 Lipitor - PO 20 mg HS LUIZA Administration Budesonide/Formoterol Fumarate 2 puff 06/23/20 22:00 06/26/20 10:49 Symbicort 80/4.5mcg - IH 2 puff BID LUIZA Administration Folic Acid 1 mg 06/24/20 10:00 06/26/20 10:47 Folic Acid - PO 1 mg DAILY LUIZA Administration Furosemide 40 mg 06/24/20 10:00 06/26/20 10:47 Lasix - PO 40 mg DAILY LUIZA Administration Hydrochlorothiazide 25 mg 06/24/20 10:00 06/26/20 10:47 Hctz - PO 25 mg DAILY LUIZA Administration Insulin Aspart 0 units 06/25/20 16:30 06/26/20 11:48 Novolog Vial SQ 2 units TIDAC LUIZA Administration Protocol Insulin Detemir 8 units 06/23/20 22:00 06/25/20 22:19 Levemir Vial SQ 8 units HS LUIZA Administration Levetiracetam 750 mg 06/23/20 22:00 06/26/20 10:48 Keppra - PO 750 mg BID LUIZA Administration Levothyroxine Sodium 25 mcg 06/24/20 07:00 06/26/20 06:13 Synthroid - PO 25 mcg DAILY@0700 LUIAZ Administration Losartan Potassium 100 mg 06/24/20 10:00 06/26/20 10:48 Cozaar - PO 100 mg DAILY LUIZA Administration Meclizine HCl 25 mg 06/23/20 21:17 06/25/20 22:17 Antivert - PO 25 mg Q12H PRN Administration VERTIGO Methylprednisolone Sodium Succinate 40 mg 06/25/20 22:00 06/26/20 10:48 Solu-Medrol - IVPUSH 40 mg BID LUIZA Administration Montelukast Sodium 10 mg 06/23/20 22:00 06/25/20 22:16 Singulair - PO 10 mg HS LUIZA Administration Pantoprazole Sodium 40 mg 06/24/20 10:00 06/26/20 10:48 Protonix - PO 40 mg DAILY LUIZA Administration Spironolactone 25 mg 06/24/20 10:00 06/26/20 10:47 Aldactone - PO 25 mg DAILY LUIZA Administration Vital Signs Period Temp Pulse Resp BP Sys/Sexton Pulse Ox Last 24 Hr 98.4 F-98.7 F 88-103 18-18 91-122/46-72 98-100 Constitutional: Yes: No Distress, Calm Eyes: Yes: Conjunctiva Clear Neck: Yes: Supple, Trachea Midline Respiratory: Yes: Other (mild expiratory wheezing) Gastrointestinal: Yes: Soft (nt), Abdomen, Obese Cardiovascular: Yes: Regular Rate and Rhythm, Other (systolic murmur RSB, non radiating) JVD: No Heart Sounds: Yes: S1, S2 Murmur: Yes: Systolic Murmur Edema: No Peripheral Pulses WNL: Yes Neurological: Yes: Alert, Oriented no jaundice diaphoresis NSR 88bpm, no acute ST changes Echo: Report Reviewed (Fall 2018: Normal LVEF, diastolic dysfx, mild to moderate , mod-severe TR with moderate PHTN) Stress Echo: Report Reviewed (2018 Nuclear stress [place] WNL- see prior notes from admissions) Ejection Fraction %: LVEF > or = 40 % Imaging - Results EKG: Image Reviewed echo 05/2020 nl LV/RV function, mod MAC, mild MR, mild TR, mod to severe , MERCEDEZ 0.7 cm2, mean gradient 20 mmHg, DI 0.26, mild DC, no AR Assessment/Plan IMP/PLAN: Chronic FIERRO: h/o asthma: -multiple prior normal nuclear stress tests ([place] 2018) and one recently at [facility] per recent records (prior admits) -Patient had been recommended cath for definitive cor assessment, but refused -Has been following with Dr. Marcial at [facility] -Suspect mild flare of acute asthma now, manage per primary Afib: as per records -sinus here -not on AVN blockers at home--no change -cont home Eliquis 2.5 bid (indicated dose is 5mg based on her wt/creatinine, however she is following with outside cardio hence will not change plan) -Previously on this for h/o DVTs (not AF) HTN: -cont losartan, HCTZ home regimen h/o TIA: -on AC, statin at home--continue same h/o DVTs: -AC per outside MDs' plan SOB: chronic -diastolic dysfx on echo 06/2019 and chronic PHTN (likely due to longstanding asthma) -BNP and CXR normal -She does report b/l LE edema which may be secondary to right sided failure from PHTN -diuresed on IV lasix, improved - cont PO Lasix moderate to severe : -MERCEDEZ 0.7 cm2, mean gradient 20 mmHg, DI 0.26 - outpatient follow up with Dr. Marcial Moderate chronic PHTN: -As above -Likely due to chronic asthma.
--- NOTE | 2020-06-26 12:36 | DS ---
Physical Examination Vital Signs: Vital Signs Temperature 98.4 F 06/26/20 06:00 Pulse Rate 88 06/26/20 06:00 Respiratory Rate 18 06/26/20 09:00 Blood Pressure 122/72 06/26/20 06:00 O2 Sat by Pulse Oximetry (%) 99 06/26/20 09:00 Constitutional: Yes: No Distress, Calm Cardiovascular: Yes: Regular Rate and Rhythm Respiratory: Yes: Diminished, Rhonchi Gastrointestinal: Yes: Normal Bowel Sounds, Soft. No: Tenderness Edema: No Neurological: Yes: Alert, Oriented Labs: CBC, BMP 06/23/20 06:18 06/23/20 06:18 Discharge Summary Problems reviewed: Yes Reason For Visit: SOB/HEART FAILURE/TYPE2 DIABETES/HYPOTHYROIDISM Current Active Problems Cough (Acute) Heart failure (Acute) SOB (shortness of breath) (Acute) Hospital Course: pt admitted for sob Had asthma exacerbation and Diastolic CHF -- not in acute exacerbation-- she received one dose of IV lasix and later changed to po the next day - she was seen by Cardiology and Neurology Echo -- normal LV function Neurology-- no interventions She was on iv solumedrol and nebs Better-- now on po prednisone stable for dc home spoke with daughter Sole today about the plan Condition: Stable - Instructions Referrals: Vasquez Abbott MD [Primary Care Provider] - Disposition: HOME - Home Medications Comprehensive Discharge Medication List: Ambulatory Orders Levothyroxine [Synthroid -] 25 mcg PO DAILY 04/15/17 Losartan/Hydrochlorothiazide [Losartan-Hctz 100-25 mg Tab] 1 each PO DAILY 03/28 Simvastatin 40 mg PO HS 06/13/17 Apixaban [Eliquis] 2.5 mg PO BID 06/11/19 levETIRAcetam [Keppra -] 750 mg PO BID 08/12/19 Meclizine HCl [Antivert -] 25 mg PO BID PRN 08/13/19 Albuterol 0.083% Nebulizer Prabha [Ventolin 0.083% Nebulizer Soln -] 1 amp NEB Q4H PRN amp 08/21/19 Montelukast Na [Singulair -] 10 mg PO HS #1 tablet 10/21/19 Pantoprazole Sodium [Protonix -] 40 mg PO DAILY 30 Days #30 tablet.ec 04/08/20 Albuterol Sulfate Inhaler - [Ventolin HFA Inhaler -] 2 puff IH Q4H PRN inhaler 05/20/20 Insulin (Levemir) [Levemir Vial] 8 units SQ HS units 05/20/20 Fluticasone/Salmeterol [Advair Hfa 115-21 Mcg Inhaler] 0 inh PO BID 06/22/20 Folic Acid 1 mg PO DAILY 06/22/20 Furosemide [Lasix] 40 mg PO DAILY 06/22/20 Insulin Aspart [Novolog] 8 unit SQ AM 06/22/20 Spironolactone 0 mg PO DAILY 06/22/20 Aripiprazole [Abilify -] 5 mg PO DAILY #14 tablet 06/25/20 predniSONE [Deltasone -] See Taper PO DAILY #14 tab 06/25/20
[2020-06-26] MEDS: MONTELUKAST NA 10 MG TABLET PO SCH (21:59)
[2020-06-26] MEDS: ATORVASTATIN CA 20 MG TABLET (FP) PO SCH (21:59)
[2020-06-26] MEDS: INSULIN (LEVEMIR) 100 UNITS/ML UNITS SQ SCH (22:00)
[2020-06-26] MEDS: MUPIROCIN 2% TOPICAL OINTMENT FOR DECOLONIZATION NS SCH (22:11)
[2020-06-27] MEDS: INSULIN (NOVOLOG) ASPART 100 UNITS/ML 10ML VIAL SQ SCH ×3 (06:22→16:29)
[2020-06-27] MEDS: LEVOTHYROXINE NA 25 MCG TABLET (FP) PO SCH (06:23)
[2020-06-27] MEDS: ALBUTEROL SO4 0.083% IH SOL 2.5 MG/3 ML VIAL.NEB. NEB PRN (09:01)
[2020-06-27] MEDS ORDERED: OFLOXACIN 0.3% OTIC SOLUTION 5 ML BOTTLE AS SCH (10:00)
[2020-06-27] MEDS: MUPIROCIN 2% TOPICAL OINTMENT FOR DECOLONIZATION NS SCH (10:06)
[2020-06-27] MEDS: ARIPiprazole 5 MG TABLET PO SCH (10:48)
[2020-06-27] MEDS: FOLIC ACID 1 MG TABLET (FP) PO SCH (10:49)
[2020-06-27] MEDS: SPIRONOLACTONE 25 MG TABLET PO SCH (10:49)
[2020-06-27] MEDS: PANTOPRAZOLE 40 MG TABLET PO SCH (10:49)
[2020-06-27] MEDS: APIXABAN 2.5 MG TABLET PO SCH (10:49)
[2020-06-27] MEDS: FUROSEMIDE 40 MG TABLET (FP) PO SCH (10:49)
[2020-06-27] MEDS: HYDROCHLOROTHIAZIDE 25 MG TABLET (FP) PO SCH (10:49)
[2020-06-27] MEDS: LOSARTAN POTASSIUM 50 MG TABLET PO SCH (10:49)
[2020-06-27] MEDS: levETIRAcetam 250 MG TABLET PO SCH (10:50)
[2020-06-27] MEDS: BUDESONIDE/FORMETEROL FUMARATE 80/4.5 mcg INHALER IH SCH (10:51)
--- NOTE | 2020-06-27 11:36 | PN ---
Progress Note (short form) - Note Progress Note: pt anxious not SOB better with nebs Vital Signs - 24 hr 06/26/20 06/26/20 06/26/20 13:52 18:33 18:46 Temperature 98.4 F 98.7 F Pulse Rate 100 H 93 H Respiratory 18 Rate Blood Pressure 110/66 104/45 L O2 Sat by Pulse 99 97 99 Oximetry (%) 06/26/20 06/27/20 06/27/20 21:00 00:00 06:00 Temperature 97.8 F 98.4 F Pulse Rate 96 H 84 Respiratory 18 18 18 Rate Blood Pressure 99/53 L 112/62 O2 Sat by Pulse 99 99 99 Oximetry (%) 06/27/20 11:24 Temperature Pulse Rate 95 H Respiratory Rate Blood Pressure O2 Sat by Pulse 96 Oximetry (%) Current Medications Generic Name Dose Route Start Last Admin Trade Name Freq PRN Reason Stop Dose Admin Albuterol Sulfate 1 amp 06/23/20 21:14 06/27/20 09:01 Ventolin 0.083% Nebulizer Soln - NEB 1 amp Q4H PRN Administration SHORT OF BREATH/WHEEZING Albuterol Sulfate 2 puff 06/23/20 21:15 Ventolin Hfa Inhaler - IH Q4H PRN SHORT OF BREATH/WHEEZING Apixaban 2.5 mg 06/23/20 22:00 06/27/20 10:49 Eliquis - PO 2.5 mg BID LUIZA Administration Aripiprazole 5 mg 06/25/20 12:30 06/27/20 10:48 Abilify PO 5 mg DAILY LUIZA Administration Atorvastatin Calcium 20 mg 06/23/20 22:00 06/26/20 21:59 Lipitor - PO 20 mg HS LUIZA Administration Bacitracin/Polymyxin B Sulfate 1 applic 06/27/20 11:45 Polysporin Ointment - TP DAILY LUIZA Budesonide/Formoterol Fumarate 2 puff 06/23/20 22:00 06/27/20 10:51 Symbicort 80/4.5mcg - IH 2 puff BID LUIZA Administration Folic Acid 1 mg 06/24/20 10:00 06/27/20 10:49 Folic Acid - PO 1 mg DAILY LUIZA Administration Furosemide 40 mg 06/24/20 10:00 06/27/20 10:49 Lasix - PO 40 mg DAILY LUIZA Administration Hydrochlorothiazide 25 mg 06/24/20 10:00 06/27/20 10:49 Hctz - PO 25 mg DAILY LUIZA Administration Insulin Aspart 0 units 06/25/20 16:30 06/27/20 06:22 Novolog Vial SQ 4 units TIDAC LUIZA Administration Protocol Insulin Detemir 8 units 06/23/20 22:00 06/26/20 22:00 Levemir Vial SQ 8 units HS LUIZA Administration Levetiracetam 750 mg 06/23/20 22:00 06/27/20 10:50 Keppra - PO 750 mg BID LUIZA Administration Levothyroxine Sodium 25 mcg 06/24/20 07:00 06/27/20 06:23 Synthroid - PO 25 mcg DAILY@0700 LUIZA Administration Losartan Potassium 100 mg 06/24/20 10:00 06/27/20 10:49 Cozaar - PO 100 mg DAILY LUIZA Administration Meclizine HCl 25 mg 06/23/20 21:17 06/25/20 22:17 Antivert - PO 25 mg Q12H PRN Administration VERTIGO Methylprednisolone Sodium Succinate 40 mg 06/25/20 22:00 06/26/20 21:59 Solu-Medrol - IVPUSH 40 mg BID LUIZA Administration Montelukast Sodium 10 mg 06/23/20 22:00 06/26/20 21:59 Singulair - PO 10 mg HS LUIZA Administration Mupirocin 1 applic 06/26/20 12:45 06/27/20 10:06 Bactroban Ointment (For Decolonization) - NS 07/01/20 12:44 Not Given BID [facility] Nystatin 1 applic 06/27/20 11:45 Mycostatin Ointment - TP BID [facility] Ofloxacin 3 drop 06/27/20 10:00 06/27/20 10:56 Floxin Otic (Ear) Solution - 3 drop DAILY LUIZA Administration Pantoprazole Sodium 40 mg 06/24/20 10:00 06/27/20 10:49 Protonix - PO 40 mg DAILY LUIZA Administration Spironolactone 25 mg 06/24/20 10:00 06/27/20 10:49 Aldactone - PO 25 mg DAILY LUIZA Administration Laboratory Results - last 24 hr 06/26/20 06/26/20 06/26/20 11:45 17:13 21:50 POC Glucometer 196 250 210 06/27/20 06:18 POC Glucometer 209 S1 S2 RRR Lungs decreased rocnhi Abd- soft, NT edema+ PLAN CHF Asthma DM HTN Headaches -- CT head and temporal CT noted -- short course steroid -- nebs -- po lasix -- decrease solumedrol -- dc planning for today -- PT eval -- pt does not have Home O2-- she does not qualify for home O2 -- restarted Abilify-- was seen by Psychiatry last admission Problem List - Problems (1) Acute exacerbation of mild persistent extrinsic asthma Code(s): J45.31 - MILD PERSISTENT ASTHMA WITH (ACUTE) EXACERBATION (2) Hypertension Code(s): I10 - ESSENTIAL (PRIMARY) HYPERTENSION (3) Hypothyroid Code(s): E03.9 - HYPOTHYROIDISM, UNSPECIFIED
[2020-06-27] MEDS: methylPREDNISolone NA SUCC 40 MG/1 ML VIAL IVPUSH SCH (11:45)
--- NOTE | 2020-06-27 12:02 | PN ---
Progress Note (short form) - Note Progress Note: Chief Complaint: Patient is an 79 year old woman with of Penicillin allergy, Asthma, COPD, Afib (on Eliquis), TIA, Hypothyroidism and bilateral DVTs who presents to the ER with complaint of SOB, bilateral LE swelling and headache since last week. Patient was seen at [facility] (06/16/20) a week ago for headache, SOB, and BLE edema. Patient had bloodwork and imaging and discharged on Medrol pack and Z-victor hugo. Has associated swelling around her ankles, band-like headaches at forehead, an episode of vertigo (described as the "world spinning") and a few episodes of "blacked out vision". Has a rash in her left ear. Patient denies chest pain, abdominal pain, palpitations, dizziness, fever, chills, nausea, vomiting, diarrhea, constipation, dysuria, frequency, urgency, melena, hematochezia or hematuria. Denies alcohol, tobacco or illicit drug use. No sick contacts or recent travels. Family history of colon cancer in mother; breast cancer in sister and daughter. History of Present Illness: Pt sees Dr Abbott of [facility]. sees Dr Heydi Marcial for cardiology. s: no palps dizzy cp. still with sob and cough Current Medications Generic Name Dose Route Start Last Admin Trade Name Freq PRN Reason Stop Dose Admin Albuterol Sulfate 1 amp 06/23/20 21:14 06/27/20 09:01 Ventolin 0.083% Nebulizer Soln - NEB 1 amp Q4H PRN Administration SHORT OF BREATH/WHEEZING Albuterol Sulfate 2 puff 06/23/20 21:15 Ventolin Hfa Inhaler - IH Q4H PRN SHORT OF BREATH/WHEEZING Apixaban 2.5 mg 06/23/20 22:00 06/27/20 10:49 Eliquis - PO 2.5 mg BID LUIZA Administration Aripiprazole 5 mg 06/25/20 12:30 06/27/20 10:48 Abilify PO 5 mg DAILY LUIZA Administration Atorvastatin Calcium 20 mg 06/23/20 22:00 06/26/20 21:59 Lipitor - PO 20 mg HS LUIZA Administration Bacitracin/Polymyxin B Sulfate 1 applic 06/27/20 11:45 Polysporin Ointment - TP DAILY LUIZA Budesonide/Formoterol Fumarate 2 puff 06/23/20 22:00 06/27/20 10:51 Symbicort 80/4.5mcg - IH 2 puff BID LUIZA Administration Folic Acid 1 mg 06/24/20 10:00 06/27/20 10:49 Folic Acid - PO 1 mg DAILY LUIZA Administration Furosemide 40 mg 06/24/20 10:00 06/27/20 10:49 Lasix - PO 40 mg DAILY LUIZA Administration Hydrochlorothiazide 25 mg 06/24/20 10:00 06/27/20 10:49 Hctz - PO 25 mg DAILY LUIZA Administration Insulin Aspart 0 units 06/25/20 16:30 06/27/20 11:44 Novolog Vial SQ 2 units TIDAC LUIZA Administration Protocol Insulin Detemir 8 units 06/23/20 22:00 06/26/20 22:00 Levemir Vial SQ 8 units HS LUIZA Administration Levetiracetam 750 mg 06/23/20 22:00 06/27/20 10:50 Keppra - PO 750 mg BID LUIZA Administration Levothyroxine Sodium 25 mcg 06/24/20 07:00 06/27/20 06:23 Synthroid - PO 25 mcg DAILY@0700 LUIZA Administration Losartan Potassium 100 mg 06/24/20 10:00 06/27/20 10:49 Cozaar - PO 100 mg DAILY LUIZA Administration Meclizine HCl 25 mg 06/23/20 21:17 06/25/20 22:17 Antivert - PO 25 mg Q12H PRN Administration VERTIGO Methylprednisolone Sodium Succinate 40 mg 06/25/20 22:00 06/27/20 11:45 Solu-Medrol - IVPUSH 40 mg BID LUIZA Administration Montelukast Sodium 10 mg 06/23/20 22:00 06/26/20 21:59 Singulair - PO 10 mg HS LUIZA Administration Mupirocin 1 applic 06/26/20 12:45 06/27/20 10:06 Bactroban Ointment (For Decolonization) - NS 07/01/20 12:44 Not Given BID [facility] Nystatin 1 applic 06/27/20 11:45 Mycostatin Ointment - TP BID [facility] Ofloxacin 3 drop 06/27/20 10:00 06/27/20 10:56 Floxin Otic (Ear) Solution - 3 drop DAILY LUIZA Administration Pantoprazole Sodium 40 mg 06/24/20 10:00 06/27/20 10:49 Protonix - PO 40 mg DAILY LUIZA Administration Spironolactone 25 mg 06/24/20 10:00 06/27/20 10:49 Aldactone - PO 25 mg DAILY LUIZA Administration Vital Signs Period Temp Pulse Resp BP Sys/Sexton Pulse Ox Last 24 Hr 97.8 F-98.7 F 84-100 18-18 99-112/45-66 96-99 Constitutional: Yes: No Distress, Calm Eyes: Yes: Conjunctiva Clear Neck: Yes: Supple, Trachea Midline Respiratory: Yes: Other (mild expiratory wheezing, no rales.) Gastrointestinal: Yes: Soft (nt), Abdomen, Obese Cardiovascular: Yes: Regular Rate and Rhythm, Other (systolic murmur RSB, non radiating) JVD: No Heart Sounds: Yes: S1, S2 Murmur: Yes: Systolic Murmur Edema: No Peripheral Pulses WNL: Yes Neurological: Yes: Alert, Oriented no jaundice diaphoresis - Other Data Labs, Other Data: CBC, BMP 06/23/20 06:18 06/23/20 06:18 NSR 88bpm, no acute ST changes Echo: Report Reviewed (Fall 2018: Normal LVEF, diastolic dysfx, mild to moderate , mod-severe TR with moderate PHTN) Stress Echo: Report Reviewed (2018 Nuclear stress [place] WNL- see prior notes from admissions) Ejection Fraction %: LVEF > or = 40 % Imaging - Results EKG: Image Reviewed Assessment/Plan Chronic FIERRO: h/o asthma: -multiple prior normal nuclear stress tests ([place] 2018) and one recently at [facility] per recent records (prior admits) -Patient had been recommended cath for definitive cor assessment, but refused -Has been following with Dr. Marcial at [facility] -Suspect flare of acute asthma now, manage per primary/pulm Afib: as per records -sinus here -not on AVN blockers at home--no change -cont home Eliquis 2.5 bid (indicated dose is 5mg based on her wt/creatinine, however she is following with outside cardio hence will not change plan) -Previously on this for h/o DVTs (not AF) HTN: -cont losartan, HCTZ home regimen h/o TIA: -on AC, statin at home--continue same h/o DVTs: -AC per outside MDs' plan SOB: chronic -diastolic dysfx on echo 06/2019 and chronic PHTN (likely due to longstanding asthma) -BNP and CXR normal -She does report b/l LE edema which may be secondary to right sided failure from PHTN -diuresed on IV lasix, improved - cont PO Lasix moderate to severe : -MERCEDEZ 0.7 cm2, mean gradient 20 mmHg, DI 0.26 - outpatient follow up with Dr. Marcial Moderate chronic PHTN: -As above -Likely due to chronic asthma.
[2020-06-27] MEDS ORDERED: BACITRACIN/POLYMYXIN B SULFATE 15 GM TUBE TP SCH (13:30)
[2020-06-27] MEDS ORDERED: NYSTATIN 100000 UNIT/GM TOPICAL OINTMENT 15 GM TUBE TP SCH (13:30)
[2020-06-27] MEDS: MECLIZINE HCL 25 MG TABLET (FP) PO PRN (13:45)
[2020-06-27 13:54] VITALS: BP 112/58; PULSE 99; TEMP 98
[2020-06-27] MEDS ORDERED: PT OWN MED DRAWER 7, Y5N ONE (14:21)
--- NOTE | 2020-06-27 14:38 | PN ---
Progress Note (short form) - Note Progress Note: 79 year old female history of HTN, CHF, DM, hypothyroidism, asthma, COPD, Afib (on Apixiban), TIA, bilateral DVT presenting with L sided headache and ear pain started three days ago before admission. She lives in [place], visiting [place] to see her sick . She has neurologist ( alie horton) and had mri of brain without contrast , which was unremarkable. Patient also have exacerbation of chf. Pateint has no headhace , blurring of vision or dizziness today. her ct head is normal. she denies any fever. -- patient is being discharged and considered for home oxygen , got dizzy and reponded to meclizine NEUROLOGICAL EXAMINATION Alert oriented x 3, neck is supple afebrile vss eomi, pupils reactive no face asymmetry moving all ext sensation is normal ct head is normal Assessment/Plan 79 year old female history of HTN, CHF, DM, hypothyroidism, asthma, COPD, Afib (on Apixiban), TIA, bilateral DVT presenting with headhace, seems to be tension headache vs sinus headache. -- no evidence of SAH OR meningitis, and patient is feeling back to normal - had mri ofbrain in [place] , was normal as per patient Plan-- no further recommendation ( mri of brain or spinal tap) at this time, her symptoms resolved -follow up outpatient Jack Pardo MD
[2020-06-27] MEDS ORDERED: INSULIN (NOVOLOG) ASPART 100 UNITS/ML 10ML VIAL ONE (16:20)
== END 2020-06-27 17:49 | disposition home or self-care (01) | DRG 202 ==
LOC: JER 12:00 → JERBED 20:50 → OBSVTOIN 23:05 → J6S 06-23 20:37
PROVIDERS: ADMIT Internal Medicine; ATTEND Internal Medicine
DX: J45.31 Mild persistent asthma with (acute) exacerbation (principal); I50.32 Chronic diastolic (congestive) heart failure; J44.9 Chronic obstructive pulmonary disease, unspecified; I48.91 Unspecified atrial fibrillation; I11.0 Hypertensive heart disease with heart failure; I27.29 Other secondary pulmonary hypertension; E03.9 Hypothyroidism, unspecified; E11.9 Type 2 diabetes mellitus without complications; Z68.31 Body mass index [BMI] 31.0-31.9, adult; E66.9 Obesity, unspecified; F41.9 Anxiety disorder, unspecified; D72.829 Elevated white blood cell count, unspecified; G44.209 Tension-type headache, unspecified, not intractable; W18.30XA Fall on same level, unspecified, initial encounter; E87.70 Fluid overload, unspecified; J32.9 Chronic sinusitis, unspecified; I08.2 Rheumatic disorders of both aortic and tricuspid valves; Z88.0 Allergy status to penicillin; Z86.718 Personal history of other venous thrombosis and embolism; Z86.73 Personal history of transient ischemic attack (TIA), and cerebral infarction without residual deficits; Y92.098 Other place in other non-institutional residence as the place of occurrence of the external cause
CPT/HCPCS: 36415; 70450-TC; 70480-TC; 71045-TC-FY; 73502-TC-RT-FY; 80053; 81003; 82962; 83036; 83735; 83880; 84100; 84443; 85025; 93005; 93010; 93306-TC; 93970-TC; 94640; 94761; 97116-GP; 97162-GP; 99291; G0378; U0003

== ENCOUNTER 2020-07-04 15:39 | Inpatient (IN) | payer BC, OTHER ==
--- NOTE | 2020-07-04 16:27 | PDOC ---
History of Present Illness - General Chief Complaint: Injury Stated Complaint: FALL Time Seen by Provider: 07/04/20 16:27 - History of Present Illness Initial Comments: 07/04/20 18:17 HPI: This is an 79 y/o female with a PMH of CHF, HTN, IDDM, hypothyroid, asthma, COPD, and Afib on Eliquis presenting to the ED because of multiple falls and a wound on her left ear. Patient is non-ambulatory at baseline, and has had increased falls in the past few weeks per her daughter who is at the bedside and who she lives with. Patient reports she has had four falls in the past two weeks when she gets up at night to go to the bathroom. On Wednesday she fell hitting her left knee as well as her left ear on the metal part of a door. Patient denies LOC, preceding chest pain, dizziness, SOB. She had a small lesion on the external ear which has grown more painful in the past two days. She treated it with triple antibiotics ointment. She is also complaining of left lower leg and knee pain which she injures every time she falls. She denies any systemic symptoms. Denies fevers/chills, chest pain, SOB nausea/vomiting. ROS: GENERAL/CONSTITUTIONAL: No fever/chills, diaphoresis, or weakness. HEENT: No change in vision. Yes left external ear pain. No sore throat. CARDIOVASCULAR: No chest pain, palpitations or peripheral edema RESPIRATORY: No shortness of breath, dyspnea with exertion, cough, wheezing GASTROINTESTINAL: No abdominal pain, nausea, vomiting GENITOURINARY: No dysuria, frequency, or change in urination. MUSCULOSKELETAL: Yes pain in left knee and left lower leg SKIN: No rash or hives NEUROLOGIC: No headache, vertigo, focal weakness, loss of consciousness, or change in strength/sensation. ENDOCRINE: No increased thirst. No unexplained weight loss. HEMATOLOGIC/LYMPHATIC: On bloodthinners, hx of bilateral DVTs PMH: CHF, HTN, IDDM, hypothyroid, asthma, COPD, and Afib on Eliquis PSx: Denied Social Hx: Denied etoh, tobacco, drug use Meds: See nurse note Allergies: See nurse note PE: GENERAL: Awake, alert, and fully oriented, in no acute distress. Non-toxic. Patient is appropriately conversational. Maltese speaking, daughter at bedside. HEENT: Normocephalic, atraumatic. Not tender to palpation. PERRLA, EOMI. Small laceration in left fossa triangularis with surrounding erythema. Warm and tender to palpation. Wound is not through and through. No mastoid tenderness. TM visualized bilaterally, no erythema in ear canal. NECK: Normal ROM and supple. No lymphadenopathy, JVD, or masses. No cervical spinal tenderness to palpation CARDIOVASCULAR: Regular rate and rhythm, normal S1 and S2, no murmurs, rubs or gallops PULMONARY: No respiratory distress. Breath sounds equal, clear to auscultation bilaterally. No wheezes, rales or rhonchi. ABDOMEN: Soft, nontender, normoactive bowel sounds. No guarding, no rebound. No masses EXTREMITIES: Large hematoma on left lower leg with healing ecchymosis. Left lower leg slightly to palpation. No specific point tenderness. Patient is able to actively range left knee. Normal range of motion, no calf tenderness. Sensation intact in bilateral lower extremities. Strength intact in bilateral lower extremities. NEUROLOGICAL: Cranial nerves II through XII grossly intact. Normal speech. Sensation intact in bilateral upper and lower extremities. SKIN: Warm, Dry, normal turgor, no rashes or lesions noted. Normal capillary refill. MDM: 07/04/20 18:20 This is an 79 y/o female with a PMH of CHF, HTN, IDDM, hypothyroid, asthma, COPD, and Afib on Eliquis presenting to the ED because of multiple falls and a wound on her left ear. - Patient well known in ED - Hemodynamically stable, afebrile. Patient is non-toxic in appearance. - Concern due to rapidly spreading infection of the left ear. Patient is a diabetic and on Prednisone. - No focal neurological deficits however given patients age and anticoagulation will CT head ddx: Perichondritis vs chondritis vs cellulitis CBC, CMP EKG, Xray L. knee, CT head Labs notable for: -WBC 18.3k - Patient is on Prednisone - BUN 38.5 07/04/20 18:56 Xray L. Knee: - No acute fractures seen HEAD CT: Impression: No CT evidence of acute intracranial pathology. Minimal to mild periventricular chronic microvascular changes are seen. There has been no definite interval change in comparison to a prior CT exam of 06/23/2020. - Patient to be admitted to med/surg for IV abx 07/04/20 19:00 - Signed out to night team - EKG > Abx > Admit Past History - Medical History Allergies/Adverse Reactions: Allergies Allergy/AdvReac Type Severity Reaction Status Date / Time Penicillins Allergy Swelling Verified 07/04/20 16:37 Home Medications: Ambulatory Orders Levothyroxine [Synthroid -] 25 mcg PO DAILY 04/15/17 Losartan/Hydrochlorothiazide [Losartan-Hctz 100-25 mg Tab] 1 each PO DAILY 04/15/17 Simvastatin 40 mg PO HS 06/13/17 Apixaban [Eliquis] 2.5 mg PO BID 06/11/19 levETIRAcetam [Keppra -] 750 mg PO BID 08/12/19 Meclizine HCl [Antivert -] 25 mg PO BID PRN 08/13/19 Albuterol 0.083% Nebulizer Prabha [Ventolin 0.083% Nebulizer Soln -] 1 amp NEB Q4H PRN amp 08/21/19 Montelukast Na [Singulair -] 10 mg PO HS #1 tablet 10/21/19 Pantoprazole Sodium [Protonix -] 40 mg PO DAILY 30 Days #30 tablet.ec 04/08/20 Albuterol Sulfate Inhaler - [Ventolin HFA Inhaler -] 2 puff IH Q4H PRN inhaler 05/20/20 Insulin (Levemir) [Levemir Vial] 8 units SQ HS units 05/20/20 Fluticasone/Salmeterol [Advair Hfa 115-21 Mcg Inhaler] 0 inh PO BID 06/22/20 Folic Acid 1 mg PO DAILY 06/22/20 Furosemide [Lasix] 40 mg PO DAILY 06/22/20 Insulin Aspart [Novolog] 8 unit SQ AM 06/22/20 Spironolactone 0 mg PO DAILY 06/22/20 Aripiprazole [Abilify -] 5 mg PO DAILY #14 tablet 06/25/20 predniSONE [Deltasone -] See Taper PO DAILY #14 tab 06/25/20 Albuterol 2.5/Ipratropium 0.5 [Duoneb -] 1 amp NEB Q4H #30 amp 06/26/20 Mupirocin Ointment [Bactroban Ointment (For Decolonization) -] 1 applic NS BID #7 applic 06/26/20 Anemia: No Asthma: Yes Cancer: No Cardiac Disorders: Yes (AORTIC STENOSIS) CVA: Yes (tia) COPD: No CHF: No DVT: No Dementia: No Diabetes: Yes GI Disorders: Yes (ULCER, HERNIA) Disorders: No HTN: Yes Hypercholesterolemia: Yes Liver Disease: No Seizures: Yes Thyroid Disease: Yes - Surgical History Abdominal Surgery: No Appendectomy: No Cardiac Surgery: No Cholecystectomy: No Lung Surgery: No Neurologic Surgery: No Orthopedic Surgery: No - Immunization History Immunization Up to Date: Yes - Psycho-Social/Smoking History Smoking Status: No Smoking History: Never smoked Have you smoked in the past 12 months: No Number of Cigarettes Smoked Daily: 0 ED Treatment Course - LABORATORY CBC & Chemistry Diagram: 07/04/20 17:20 07/04/20 17:20 Discharge - Discharge Information Problems reviewed: Yes Clinical Impression/Diagnosis: Falls Qualifiers: Encounter type: initial encounter Qualified Code(s): W19.XXXA - Unspecified fall, initial encounter Perichondritis of auricle Qualifiers: Laterality: left Qualified Code(s): H61.002 - Unspecified perichondritis of left external ear Cellulitis of auricle of ear Qualifiers: Laterality: left Qualified Code(s): H60.12 - Cellulitis of left external ear Condition: Guarded - Follow up/Referral - Patient Discharge Instructions - Post Discharge Activity
--- OUTSIDE RECORDS SUMMARY | 2020-07-04 16:27 | XMS ---
:1940 Author Organization [facility] Support Name Relationship Address Phone RE, RETIRED Unavailable Unavailable Unavailable RE Unavailable Unavailable Unavailable JODI, CRUZ DAUGHTER [address] [facility] [address]) [place] [address] JODI, CRUZ Child [address] [place] [address] Re-disclosure Warning The records that you are [...] is protected by Article 27-F of the [facility] Public Health law. If you continue you may haveaccess to information: Regarding HIV / AIDS; Provided by facilities licensed or operated by the [facility] Office of Mental Health; or Provided by the [facility] Office for People With Developmental Disabilities. If such information is present, then the following [facility] mandated warning applies: This information has been [...] name Policy type Policy ID Covered Covered green party's Policy P phani / Coverage green party ID relationship to [facility] type carey VNS CHOICE [id number] SP [id number] BLUE CROSS [id number] SP [id number] SENIOR PLAN ABRIL MEDICARE [id number] SP [id number] MEDICAID [id number] SP [id number] BLUE CROSS [id number] SP [id number] SENIOR PLAN ABRIL MEDICARE [id number] MEDICARE [id number] SP [id number] HUMANA GOLD [id number] SP [id number] PLUS PLAN HUMANA GOLD [id number] SP [id number] PLUS PLAN ABRIL MEDICARE [id number] SP [id number] MEDICARE [id number] SP [id number] SELF PAY INSURANCE HUMANA [id number] SP [id number] MEDICAL PLAN HUMANA GOLD [id number] SP [id number] PLUS PLAN HUMANA GOLD [id number] SP [id number] PLUS PLAN MEDICARE [id number] SP [id number] A AETNA [id number] SP [id number] MEDICARE AETNA [id number] SP [id number] MEDICARE [place] MC [id number] SP [id number] Results ID Date Data Source [id number] 06/22/2020 09:10:00 PM EDT [facility] Name Value Range Interpretation Description Data Sup porting Code Source(s) Document(s ) SARS [facility] coronavirus 2 RNA This lab was ordered by [facility] and reported by [facility]. ID Date Data Source [id number] 05/13/2020 02:16:00 PM EDT [facility] Name Value Range Interpretation Description Data Sup porting Code Source(s) Document(s ) SARS [facility] coronavirus 2 RNA This lab was ordered by [facility] and reported by [facility]. ID Date Data Source [id number] 04/02/2020 02:26:00 PM EDT [facility] Name Value Range Interpretation Description Data Sup porting Code Source(s) Document(s ) SARS [facility] coronavirus 2 RNA This lab was ordered by [facility] and reported by [facility]. Procedure
--- NOTE | 2020-07-04 16:51 | PDOC ---
Attending Attestation - Resident Resident Name: AshleyMichelle - ED Attending Attestation I have performed the following: I have examined & evaluated the patient, The case was reviewed & discussed with the resident, I agree w/resident's findings & plan, Exceptions are as noted - HPI HPI: 07/04/20 16:46 79YOF with h/o aortic stenosis, DM, asthma, HLD, TIA, PUD, and hernia who was BIBEMS for multiple falls in the past week, now with an ear laceration sustained days ago that has become infected. Patient and her daughter note it has become more painful, red, and swollen and is spreading to the outside of the ear. The patient is not supposed to ambulate unassisted at home but the daughter notes she is not adherent to this, and her fall frequency has increased drastically over the past month. - Physicial Exam PE: 07/04/20 17:13 GENERAL: elderly, nontoxic-appearing, no distress, answers simple questions appropriately, Polish-speaking, rapid slightly pressured speech, accompanied by daughter at bedside who assists in history, family states Pt is A/O per baseline and mentating at baseline HEENT: Left ear antihelix with medial/anterior dark-colored ulceration which is about 1x0.5cm and which is surrounded by erythematous, edematous tissue. There is significant tenderness with manipulation of the helix and with slight bending of the antihelix cartilage. No streaking ertythema, no visible drainage, there is ointment overlying the ulceration. Otherwise PERRLA, EOMI, moist mucous membranes NECK/BACK: no midline ttp, no spinal stepoff or deformity, no hematoma, full ROM, neck supple CARDIOVASCULAR: regular rate/rhythm, no MGR, strong peripheral pulses, capillary refill <2 seconds, extremities wwp, no edema LUNGS/RESPIRATORY: no respiratory distress, CTAB GI/ABDOMEN: symmetric [id number], normoactive BS, soft, no ttp, no midline pulsatile masses : no CVA tenderness MSK/EXTREMITIES: left inferior knee and anterior tibia with days old-appearing ecchymosis, without significant tenderness to the left knee jointline, no knee ligamentous instability, negative anterior and posterior drawers, full active ROM without pain, no deformity or point tenderness to anterior tibia, no skin t ears or lacerations, otherwise MSK exam with no acute-appearing muscle atrophy, no acute deformity DERM/SKIN: warm and dry, no pallor, no jaundice, no rash, no pathologic- appearing bruising, no skin breakdown, no cuts, no lesions NEUROLOGICAL: GCS 15, CN II-XII grossly intact, 5/5 strength proximally and distally, no facial droop - Medical Decision Making 07/04/20 17:17 79 YOF with h/o DM p/w multiple falls, ear antihelix laceration days ago, and now infection of that laceration with apparent cartilage involvement. Initial Vital Signs Temp Pulse Resp BP Pulse Ox 98.6 F 90 16 115/53 L 99 07/04/20 15:40 07/04/20 15:40 07/04/20 15:40 07/04/20 15:40 07/04/20 15:40 Most likely chondritis or perichondritis as a complication of antihelix lacerat ion in this patient with DM. Unlikely that this is simply soft tissue without cartilage involvement as the ulceration does appear deep and is just overlying the cartilage. Cellulitis to surrounding helix and antihelix skin, anteriorly and posteriorly, also cellulitis to antitragus. This does seem to be a fast- spreading infection, the patient is diabetic, has been on prednisone for asthma recently (and currently), and she is high risk for serious continued spread of infection. Provider Orders Category Date Time Status HEAD CT WITHOUT CONTRAST [CT] Stat CT Scan 07/04/20 17:11 Ordered EKG [ELECTROCARDIOGRAM] [CARD] Stat Cardiology 07/04/20 17:39 Ordered EKG needed NOW Care 07/04/20 17:39 Active Insert Saline Lock NOW Care 07/04/20 17:12 Active CBC WITH DIFFERENTIAL Stat Lab 07/04/20 17:12 Uncollected COMP METABOLIC PANEL Stat Lab 07/04/20 17:12 Uncollected Diphth,Pertuss(Acell),Tet Ped [Boostrix -] Medication 07/04/20 17:17 Discontinued 0.5 ml IM .ONCE ONE IV Insert NOW Phy Order 07/04/20 17:10 Active KNEE 3 POS-LEFT [RAD] Stat Radiology 07/04/20 17:17 Ordered Medications Discontinued Medications Generic Name Dose Route Start Last Admin Trade Name Freq PRN Reason Stop Dose Admin Diphtheria/Tetanus/Acell Pertussis 0.5 ml 07/04/20 17:17 Boostrix - IM 07/04/20 17:18 .ONCE ONE 07/04/20 17:38 The patient does require systemic abx. Could use Zosyn but this does not overtly appear like a pseudomonas infection, and if pseudomonas it would also be covered by Levaquin. Levaquin would also cover staph. Will get EKG and ensure QTc not prolonged, then plan for IVPB Levaquin if it is within normal limits. Patient is not ambulatory and thus less concern for tendon rupture. Provider Orders Category Date Time Status HEAD CT WITHOUT CONTRAST [CT] Stat CT Scan 07/04/20 17:11 Taken EKG [ELECTROCARDIOGRAM] [CARD] Stat Cardiology 07/04/20 17:39 Ordered EKG needed NOW Care 07/04/20 17:39 Active Insert Saline Lock NOW Care 07/04/20 17:12 Active CBC WITH DIFFERENTIAL Stat Lab 07/04/20 17:20 Completed COMP METABOLIC PANEL Stat Lab 07/04/20 17:20 Completed Diphth,Pertuss(Acell),Tet Ped [Boostrix -] Medication 07/04/20 17:17 Discontinued 0.5 ml IM .ONCE ONE IV Insert NOW Phy Order 07/04/20 17:10 Active KNEE 3 POS-LEFT [RAD] Stat Radiology 07/04/20 17:17 Taken Medications Discontinued Medications Generic Name Dose Route Start Last Admin Trade Name Freq PRN Reason Stop Dose Admin Diphtheria/Tetanus/Acell Pertussis 0.5 ml 07/04/20 17:17 07/04/20 18:13 Boostrix - IM 07/04/20 17:18 Not Given .ONCE ONE Lab Results WBC 18.3 K/mm3 (4.0-10.0) H 07/04/20 17:20 RBC 4.25 M/mm3 (3.60-5.2) 07/04/20 17:20 Hgb 12.2 GM/dL (10.7-15.3) 07/04/20 17:20 Hct 37.4 % (32.4-45.2) 07/04/20 17:20 MCV 88.0 fl (80-96) 07/04/20 17:20 MCH 28.6 pg (25.7-33.7) 07/04/20 17:20 MCHC 32.5 g/dl (32.0-36.0) 07/04/20 17:20 RDW 16.5 % (11.6-15.6) H 07/04/20 17:20 Plt Count 201 K/MM3 (134-434) 07/04/20 17:20 MPV 9.1 fl (7.5-11.1) 07/04/20 17:20 Absolute Neuts (auto) 15.1 K/mm3 (1.5-8.0) H 07/04/20 17:20 Neutrophils % 82.6 % (42.8-82.8) D 07/04/20 17:20 Lymphocytes % 9.5 % (8-40) D 07/04/20 17:20 Monocytes % 7.2 % (3.8-10.2) 07/04/20 17:20 Eosinophils % 0.5 % (0-4.5) 07/04/20 17:20 Basophils % 0.2 % (0-2.0) 07/04/20 17:20 Nucleated RBC % 0 % (0-0) 07/04/20 17:20 Sodium 142 mmol/L (136-145) 07/04/20 17:20 Potassium 4.1 mmol/L (3.5-5.1) 07/04/20 17:20 Chloride 105 mmol/L (98-107) 07/04/20 17:20 Carbon Dioxide 31 mmol/L (21-32) 07/04/20 17:20 Anion Gap 6 MMOL/L (8-16) L 07/04/20 17:20 BUN 38.5 mg/dL (7-18) H 07/04/20 17:20 Creatinine 1.2 mg/dL (0.55-1.3) 07/04/20 17:20 Est GFR (CKD-EPI)AfAm 49.43 07/04/20 17:20 Est GFR (CKD-EPI)NonAf 42.65 07/04/20 17:20 Random Glucose 144 mg/dL (74-106) H 07/04/20 17:20 Calcium 8.9 mg/dL (8.5-10.1) 07/04/20 17:20 Total Bilirubin 0.5 mg/dL (0.2-1) 07/04/20 17:20 AST 25 U/L (15-37) 10/08/20 17:20 ALT 33 U/L (13-61) 07/04/20 17:20 Alkaline Phosphatase 83 U/L (45-117) 07/04/20 17:20 Total Protein 6.3 g/dl (6.4-8.2) L 07/04/20 17:20 Albumin 3.4 g/dl (3.4-5.0) 07/04/20 17:20 CT/HEAD CT WITHOUT CONTRAST Cranial CT without contrast Clinical information: fall Multiplanar imaging was performed. Intravenous contrast was not administered. No CT evidence of intracranial injury or calvarial fracture. There is no extra-axial fluid collection. No obvious mass lesion or infarct is noted. Minimal to mild periventricular microvascular changes are seen. Involutional changes are noted with mild ventricular dilatation. Incidental note is made of small physiologic bilateral basal ganglia calcifications. Impression: No CT evidence of acute intracranial pathology. Minimal to mild periventricular chronic microvascular changes are seen. There has been no definite interval change in comparison to a prior CT exam of 06/23/2020. RAD/KNEE 3 POS-LEFT Left knee: 4. Pain. 3 views of the left knee reveal loss of bone density, degenerative changes, vascular calcifications but no sign of fracture or subluxation and no sign of blastic or lytic findings. An effusion is not seen. If symptoms persist, further imaging may be of help. Heart Score/ECG Review #1 Sinus rhythm with sinus arrhythmia, rate 82, normal axis and intervals, 2 PVCs, low voltages, no ST-T changes Discharge - Discharge Information Problems reviewed: Yes Clinical Impression/Diagnosis: Falls Qualifiers: Encounter type: initial encounter Qualified Code(s): W19.XXXA - Unspecified fall, initial encounter Perichondritis of auricle Qualifiers: Laterality: left Qualified Code(s): H61.002 - Unspecified perichondritis of left external ear Cellulitis of auricle of ear Qualifiers: Laterality: left Qualified Code(s): H60.12 - Cellulitis of left external ear Condition: Guarded - Admission Yes - Follow up/Referral - Patient Discharge Instructions - Post Discharge Activity
[2020-07-04] MEDS ORDERED: DIPHTH,PERTUSS(ACELL),TET 0.5 ML DISP.SYRIN IM ONE (17:17)
[2020-07-04 17:45] LABS: BASO % 0.2 % (0-2.0); EOS % 0.5 % (0-4.5); HEMATOCRIT 37.4 % (32.4-45.2); HEMOGLOBIN 12.2 GM/dL (10.7-15.3); LYMPH % 9.5 % (8-40); MCH 28.6 pg (25.7-33.7); MCHC 32.5 g/dl (32.0-36.0); MEAN PLT VOLUME 9.1 fl (7.5-11.1); MONO % 7.2 % (3.8-10.2); NEUT % 82.6 % (42.8-82.8); PLATELET COUNT 201 K/MM3 (134-434); RBC 4.25 M/mm3 (3.60-5.2); RDW 16.5 % (11.6-15.6); WHITE BLOOD COUNT 18.3 K/mm3 (4.0-10.0)
[2020-07-04 18:25] LABS: ALBUMIN 3.4 g/dl (3.4-5.0); BILIRUBIN,TOTAL 0.5 mg/dL (0.2-1); BLOOD UREA NITROGEN 38.5 mg/dL (7-18); CALCIUM 8.9 mg/dL (8.5-10.1); CREATININE 1.2 mg/dL (0.55-1.3); POTASSIUM 4.1 mmol/L (3.5-5.1); TOT PROT 6.3 g/dl (6.4-8.2)
--- NOTE | 2020-07-04 19:13 | PDOC ---
*Physical Exam - Vital Signs Last Vital Signs Temp Pulse Resp BP Pulse Ox 98.6 F 90 16 115/53 L 99 07/04/20 15:40 07/04/20 15:40 07/04/20 17:08 07/04/20 15:40 07/04/20 17:08 ED Treatment Course - LABORATORY CBC & Chemistry Diagram: 07/06/20 07:10 07/09/20 07:53 - ADDITIONAL ORDERS Additional order review: Laboratory Results 07/04/20 17:20 Sodium 142 Potassium 4.1 Chloride 105 Carbon Dioxide 31 Anion Gap 6 L BUN 38.5 H Creatinine 1.2 Est GFR (CKD-EPI)AfAm 49.43 Est GFR (CKD-EPI)NonAf 42.65 Random Glucose 144 H Calcium 8.9 Total Bilirubin 0.5 AST 25 ALT 33 Alkaline Phosphatase 83 Total Protein 6.3 L Albumin 3.4 07/04/20 17:20 RBC 4.25 MCV 88.0 MCHC 32.5 RDW 16.5 H MPV 9.1 Neutrophils % 82.6 D Lymphocytes % 9.5 D Monocytes % 7.2 Eosinophils % 0.5 Basophils % 0.2 - Medications Given in the ED: ED Medications Discontinued Medications Generic Name Dose Route Start Last Admin Trade Name Freq PRN Reason Stop Dose Admin Diphtheria/Tetanus/Acell Pertussis 0.5 ml 07/04/20 17:17 07/04/20 18:13 Boostrix - IM 07/04/20 17:18 Not Given .ONCE ONE Medical Decision Making - Medical Decision Making 07/04/20 19:09 received sign out from day team: h/o multiple falls and DM fell wednesday going to bathroom, hit head on door, now w/ wound to left ear subsequent infection (fossa triangularis). no mastoid ttp, no fevers. concerning speed of spread. elevated wbc, also recently on steroids ROS: chronic unchanged headache Head CT neg [] EKG then levaquin [] admit Discharge - Discharge Information Problems reviewed: Yes Clinical Impression/Diagnosis: Falls Qualifiers: Encounter type: initial encounter Qualified Code(s): W19.XXXA - Unspecified fall, initial encounter Perichondritis of auricle Qualifiers: Laterality: left Qualified Code(s): H61.002 - Unspecified perichondritis of left external ear Cellulitis of auricle of ear Qualifiers: Laterality: left Qualified Code(s): H60.12 - Cellulitis of left external ear Condition: Guarded Disposition: HOME - Follow up/Referral - Patient Discharge Instructions - Post Discharge Activity
--- NOTE | 2020-07-04 20:50 | PN ---
Teaching Attending Note Name of Resident: Danielle Ramos ATTENDING PHYSICIAN STATEMENT I saw and evaluated the patient. I reviewed the resident's note and discussed the case with the resident. I agree with the resident's findings and plan as documented. SUBJECTIVE: Patient is an 79 year old woman with a PMH of Aortic stenosis, Penicillin al lergy, NIDDM, Seizure disorder, Asthma, HLD, TIA, PUD and Hernia who was brought by EMS for multiple falls in the past week and left ear laceration that has become infected. Patient and her daughter note it has become more painful, red, and swollen and is spreading to the outside of the ear. The patient is not supposed to ambulate unassisted at home but the daughter notes she is not adherent to this, and her fall frequency has increased drastically over the past month. On Prednisone taper for recent asthma exacerbation. Patient denies chest pain, shortness of breath, abdominal pain, headache, palpitations, dizziness, fever, chills, nausea, vomiting, diarrhea, constipation, dysuria, frequency, urgency, melena, hematochezia or hematuria. Denies alcohol, tobacco or illicit drug use. No sick contacts or recent travels. Family history is unremarkable. OBJECTIVE: Alert Vital Signs Period Temp Pulse Resp BP Sys/Sexton Pulse Ox Last 24 Hr 98.6 F 90 16-16 115/53 99-99 HEENT: No Jaundice, eye redness or discharge, PERRLA, EOMI. Normocephalic, atraumatic. Left ear necrotic ulceration with surrounding erythema and edema; tender with manipulation; hearing is grossly intact. Right tympanic membrane erythema; No nasal discharge. Neck: Supple, nontender. No palpable adenopathy or thyromegaly. No JVD Chest: Good effort. Clear to auscultation and percussion. Heart: Regular. No S3, rub or murmur Abdomen: Not distended, soft, nontender and no HSM. No rebound or guarding. Normal bowel sounds. Ext: Peripheral pulses intact. No leg edema. Left knee anterior ecchymosis Skin: Warm and dry. No petechiae or rash; left knee ecchymosis. Neuro: Alert. Oriented x3. CN 2-12 grossly intact. Sensation grossly intact in all four extremities and DTR are symmetric. Psych: Appropriate mood and affect. Good insight. Home Medications Medication Instructions Recorded Levothyroxine [Synthroid -] 25 mcg PO DAILY 04/15/17 Losartan/Hydrochlorothiazide 1 each PO DAILY 04/15/17 [Losartan-Hctz 100-25 mg Tab] Simvastatin 40 mg PO HS 06/13/17 Apixaban [Eliquis] 2.5 mg PO BID 06/11/19 levETIRAcetam [Keppra -] 750 mg PO BID 08/12/19 Meclizine HCl [Antivert -] 25 mg PO BID PRN 08/13/19 Albuterol 0.083% Nebulizer Prabha 1 amp NEB Q4H PRN amp 08/21/19 [Ventolin 0.083% Nebulizer Soln -] Montelukast Na [Singulair -] 10 mg PO HS #1 tablet 10/21/19 Pantoprazole Sodium [Protonix -] 40 mg PO DAILY 30 Days #30 04/08/20 tablet.ec Albuterol Sulfate Inhaler - 2 puff IH Q4H PRN inhaler 05/20/20 [Ventolin HFA Inhaler -] Insulin (Levemir) [Levemir Vial] 8 units SQ HS units 05/20/20 Fluticasone/Salmeterol [Advair Hfa 0 inh PO BID 06/22/20 115-21 Mcg Inhaler] Folic Acid 1 mg PO DAILY 06/22/20 Furosemide [Lasix] 40 mg PO DAILY 06/22/20 Insulin Aspart [Novolog] 8 unit SQ AM 06/22/20 Spironolactone 0 mg PO DAILY 06/22/20 Aripiprazole [Abilify -] 5 mg PO DAILY #14 tablet 06/25/20 predniSONE [Deltasone -] See Taper PO DAILY #14 tab 06/25/20 Albuterol 2.5/Ipratropium 0.5 1 amp NEB Q4H #30 amp 06/26/20 [Duoneb -] Mupirocin Ointment [Bactroban 1 applic NS BID #7 applic 06/26/20 Ointment (For Decolonization) -] Abnormal Lab Results 07/04/20 07/04/20 17:20 17:20 WBC 18.3 H RDW 16.5 H Absolute Neuts (auto) 15.1 H Anion Gap 6 L BUN 38.5 H Random Glucose 144 H Total Protein 6.3 L Current Medications Generic Name Dose Route Start Last Admin Trade Name Yahaira PRN Reason Stop Dose Admin Apixaban 2.5 mg 07/05/20 10:00 Eliquis - PO BID [facility] Sodium Chloride 1,000 mls @ 50 mls/hr 07/04/20 23:45 Normal Saline - IV 07/05/20 23:56 ASDIR [facility] Insulin Aspart 1 vial 07/05/20 07:00 Novolog Vial Sliding Scale - SQ ACHS [facility] Protocol Levetiracetam 750 mg 07/05/20 10:00 Keppra - PO BID [facility] Levothyroxine Sodium 25 mcg 07/05/20 07:00 Synthroid - PO ACBK [facility] ASSESSMENT AND PLAN: 1. Cellulitis/wound infection of outer ear/Multiple falls - No evidence of acute intracranial pathology on noncontrast head CT scan. Viral testing for COVID-19 ordered and patient placed on airborne, droplet and contact isolation. Started on IV Levofloxacin and IV NS. EKG shows NSR at 82/minute, PVCs and QTc 453 with no significant acute ischemic ST-T wave changes. Will get urinalysis, do neurochecks and implement fall/aspiration/seizure precautions, consult ID/PT/Neurology/ENT. Will continue comprehensive care for all of patients comorbid conditions including Synthroid for hypothyroidism and Keppra for seizure disorder. 2. DM For now, we will hold the home diabetes drugs and implement sliding scale insulin regimen. Provide comprehensive diabetes care with patient teaching and counseling about the importance of adherence to prescribed diabetes regimen, euglycemia, eye care and foot care. 3. LUCIANA May be dehydrated. Will hold Losartan/HCTZ, get urinalysis, kidney sonogram, hydrate gently, monitor urine output and consult Nephrology. Avoid nephrotoxic agents such as NSAIDS, aminoglycosides, contrast dyes and certain Alternative medicine products. 4. Obesity Counseled on the risks associated with obesity. Will provide patient all the necessary assistance, counseling and positive reinforcement to facilitate weight loss. Consult direct service provider. 5. Hypertension Will hold outpatient antihypertensive drugs for now and restart when clinically appropriate. Subsequently, will revise regimen to ensure [id number] excellent BP control. Patient counseled on the injurious effects of uncontrolled hypertension. Nonpharmacologic measures to control hypertension like weight loss, salt restriction and exercise stressed. Importance of adherence to treatment regimen and attainment of normotension emphasized. 6. DVT prophylaxis - On Eliquis. 7. Advance directives - Full code
--- OUTSIDE RECORDS SUMMARY | 2020-07-04 21:07 | XMS ---
:1940 Author Organization [facility] Support Name Relationship Address Phone RE, RETIRED Unavailable Unavailable Unavailable RE Unavailable Unavailable Unavailable JODI, CRUZ DAUGHTER [address] [facility] [address] ([address]) [place] [address] JODI, CRUZ Child [address] [place] [address] Re-disclosure Warning The records that you are [...] is protected by Article 27-F of the [facility] Public Health law. If you continue you may haveaccess to information: Regarding HIV / AIDS; Provided by facilities licensed or operated by the [facility] Office of Mental Health; or Provided by the [facility] Office for People With Developmental Disabilities. If such information is present, then the following [facility] mandated warning applies: This information has [...] law may result in a fine or residential sentence or both. A general authorization for the release of medical or other information is NOT sufficient authorization for further disclosure. Insurance Providers Payer name Policy type Policy ID Covered Covered alliance party's Policy P phani / Coverage alliance party ID relationship to [facility] type carey VNS CHOICE [id number] SP [id number] BLUE CROSS [id number] SP [id number] SENIOR PLAN ABRIL MEDICARE [id number] SP [id number] MEDICAID [id number] SP [id number] BLUE CROSS [id number] SP [id number] SENIOR PLAN ABRIL MEDICARE [id number] MEDICARE [id number] SP [id number] HUMANA GOLD [id number] SP [id number] PLUS PLAN HUMANA GOLD [id number] SP [id number] PLUS PLAN ABRIL MEDICARE [id number] SP [id number] MEDICARE [id number] SP [id number] SELF PAY INSURANCE HUMANA [id number] SP [id number] MEDICAL PLAN HUMANA GOLD [id number] SP [id number] PLUS PLAN HUMANA GOLD [id number] SP [id number] PLUS PLAN MEDICARE [id number] SP [id number] A AETNA [id number] SP [id number] MEDICARE AETNA [id number] SP [id number] MEDICARE [place] MC [id number] SP [id number] Results ID Date Data Source [id number] 06/22/2020 09:10:00 PM EDT [facility] Name Value Range Interpretation Description Data Sup porting Code Source(s) Document(s ) SARS [facility] coronavirus 2 RNA This lab was ordered by [facility] and reported by [facility]. ID Date Data Source [id number] 05/13/2020 02:16:00 PM EDT [facility] Name Value Range Interpretation Description Data Sup porting Code Source(s) Document(s ) SARS [facility] coronavirus 2 RNA This lab was ordered by [facility] and reported by [facility]. ID Date Data Source [id number] 04/02/2020 02:26:00 PM EDT [facility] Name Value Range Interpretation Description Data Sup porting Code Source(s) Document(s ) SARS [facility] coronavirus 2 RNA This lab was ordered by [facility] and reported by [facility]. Procedure
[2020-07-05] MEDS: SODIUM CHLORIDE 1,000 ML IV SCH (01:20)
--- NOTE | 2020-07-05 02:01 | HP ---
CHIEF COMPLAINT: ear and knee pain following fall HISTORY OF PRESENT ILLNESS: Ms. Anali Cooper is an 79 year old woman PMH CHF, Afib on Eliquis, hypertension , IDDM, COPD, hypothyroidism, who is presenting today after experiencing worsening ear pain, knee pain, following a fall she sustained on Wednesday (4 days ago). She ambulates at home with a walker with the help of her daughter, and occasionally a wheelchair. However, 2 weeks ago her daughter had surgery, and was no longer able to help patient ambulate around the home. Patient began attempting to ambulate by herself, and states while walking in the home she became unsteady and fell, hitting her left ear on a door knob, and landing on the left knee. She sustained a cut on the ear, which has increased in pain the past few days, and has not healed despite the application of topical antibiotics. She denies LOC, chest pain, lightheadedness, nausea headache preceding the fall. Of note she has been on a recent prednisone taper for an asthma exacerbation 2 weeks ago. The patient does report a chronic sensation (past year) of something being 'stuck' in both ears. She has been seen by PCP, and seen by ENT, who have not found any pathology. ER course was notable for: (1) Stable vitals, WBC 18.3, BUN 38.5, CT head negative for acute intracranial pathology Recent Travel:none PAST MEDICAL HISTORY: chf afib htn iddm copd hypothyroidism PAST SURGICAL HISTORY: Hysterectomy Cataracts 2017 Social History: Smoking:no Alcohol:no Drugs: no Allergies Penicillins Allergy (Verified 07/04/20 16:37) Swelling HOME MEDICATIONS: Home Medications Medication Instructions Recorded Levothyroxine [Synthroid -] 25 mcg PO DAILY 04/15/17 Losartan/Hydrochlorothiazide 1 each PO DAILY 04/15/17 [Losartan-Hctz 100-25 mg Tab] Simvastatin 40 mg PO HS 06/13/17 Apixaban [Eliquis] 2.5 mg PO BID 06/11/19 levETIRAcetam [Keppra -] 750 mg PO BID 08/12/19 Meclizine HCl [Antivert -] 25 mg PO BID PRN 08/13/19 Albuterol 0.083% Nebulizer Prabha 1 amp NEB Q4H PRN amp 08/21/19 [Ventolin 0.083% Nebulizer Soln -] Montelukast Na [Singulair -] 10 mg PO HS #1 tablet 10/21/19 Pantoprazole Sodium [Protonix -] 40 mg PO DAILY 30 Days #30 04/08/20 tablet.ec Albuterol Sulfate Inhaler - 2 puff IH Q4H PRN inhaler 05/20/20 [Ventolin HFA Inhaler -] Insulin (Levemir) [Levemir Vial] 8 units SQ HS units 05/20/20 Fluticasone/Salmeterol [Advair Hfa 0 inh PO BID 06/22/20 115-21 Mcg Inhaler] Folic Acid 1 mg PO DAILY 06/22/20 Furosemide [Lasix] 40 mg PO DAILY 06/22/20 Insulin Aspart [Novolog] 8 unit SQ AM 06/22/20 Spironolactone 0 mg PO DAILY 06/22/20 Aripiprazole [Abilify -] 5 mg PO DAILY #14 tablet 06/25/20 predniSONE [Deltasone -] See Taper PO DAILY #14 tab 06/25/20 Albuterol 2.5/Ipratropium 0.5 1 amp NEB Q4H #30 amp 06/26/20 [Duoneb -] Mupirocin Ointment [Bactroban 1 applic NS BID #7 applic 06/26/20 Ointment (For Decolonization) -] REVIEW OF SYSTEMS SEE HPI PHYSICAL EXAMINATION Vital Signs - 24 hr 07/04/20 07/04/20 15:40 17:08 Temperature 98.6 F Pulse Rate 90 Respiratory 16 16 Rate Blood Pressure 115/53 L O2 Sat by Pulse 99 99 Oximetry (%) GENERAL: Awake, alert, and fully oriented, in no acute distress. HEAD: Normal with no signs of trauma. EYES: Pupils equal, round and reactive to light, extraocular movements intact, sclera anicteric EARS, NOSE, THROAT: L crura of antihelix with 1x2 cm of ulceration and necrotic tissue with purulent drainage. TM on the left with mild erythema. NECK: Normal range of motion, supple without lymphadenopathy LUNGS: Breath sounds equal, clear to auscultation bilaterally. No wheezes, and no crackles. No accessory muscle use. HEART: Regular rate and rhythm, normal S1 and S2 without murmur, rub or gallop. ABDOMEN: Soft, nontender, not distended, normoactive bowel sounds, no guarding, no rebound, no masses. MUSCULOSKELETAL: Normal range of motion at all joints. No bony deformities or tenderness. No CVA tenderness. LOWER EXTREMITIES: 2+ pulses, warm, well-perfused. No calf tenderness. No peripheral edema. Hematoma on the left anterior lindo. PSYCHIATRIC: Cooperative. Good eye contact. Appropriate mood and affect. Laboratory Results - last 24 hr 07/04/20 07/04/20 17:20 17:20 WBC 18.3 H RBC 4.25 Hgb 12.2 Hct 37.4 MCV 88.0 MCH 28.6 MCHC 32.5 RDW 16.5 H Plt Count 201 MPV 9.1 Absolute Neuts (auto) 15.1 H Neutrophils % 82.6 D Lymphocytes % 9.5 D Monocytes % 7.2 Eosinophils % 0.5 Basophils % 0.2 Nucleated RBC % 0 Sodium 142 Potassium 4.1 Chloride 105 Carbon Dioxide 31 Anion Gap 6 L BUN 38.5 H Creatinine 1.2 Est GFR (CKD-EPI)AfAm 49.43 Est GFR (CKD-EPI)NonAf 42.65 Random Glucose 144 H Calcium 8.9 Total Bilirubin 0.5 AST 25 ALT 33 Alkaline Phosphatase 83 Total Protein 6.3 L Albumin 3.4 ASSESSMENT/PLAN: Ms. Anali Cooper is an 79 year old woman PMH CHF, Afib on Eliquis, hypertension , IDDM, COPD, hypothyroidism, who is presenting today after experiencing worsening ear pain, knee pain, following a fall she sustained on Wednesday (4 days ago). #Cellulitis L ear - With purulent drainage, and skin necrosis - Received 1 dose of Levaquin in ED - ENT consulted - ID consulted #LUCIANA - Cr 1.2; BASELING 0.7-1 - bun:cr >20:1 - Likely pre renal due to dehydration - 0.9 NS @ 50 cc/h - Renal consulted - F/U electrolytes - F/U renal sonogram #Frequent falls - Hx epilepsy with last seizure 3 monts ago - PT consult - Neurology consult #Leukocytosis - Uti vs. on prednisone taper - F/U UA #CHF -Resume home Lasix when appropriate #Epilepsy - Continue home keppra --med rec needed #Afib - Continue Eliquis 2.5 bid #Hypothyroidism - Continue synthroid -- med rec needed DVT prophylaxis: Eliquis 2.5 bid FEN - 0.9 ns @ 50 cc/hr - monitor electrolytes - Diabetic diet Dispo: med surge with fall and seizure precautions Family Medical History Family History: As Documented Visit type - Medication Review Med list reviewed for High Risk Meds patients 65 and older: Yes - Emergency Visit Emergency Visit: Yes ED Registration Date: 07/04/20 Care time: The patient presented to the Emergency Department on the above date and was hospitalized for further evaluation of their emergent condition. - New Patient This patient is new to me today: No - Critical Care Critical Care patient: No ATTENDING PHYSICIAN STATEMENT I saw and evaluated the patient. I reviewed the resident's note and discussed the case with the resident. I agree with the resident's findings and plan as documented. SUBJECTIVE: OBJECTIVE: ASSESSMENT AND PLAN:
[2020-07-05] MEDS ORDERED: LEVOTHYROXINE NA 25 MCG TABLET (FP) ONE (07:27)
[2020-07-05] MEDS: LEVOTHYROXINE NA 25 MCG TABLET (FP) PO SCH (07:32)
[2020-07-05] MEDS: INSULIN SLIDING SCALE (NOVOLOG) 1 VIAL SQ SCH ×4 (07:40→22:23)
[2020-07-05] MEDS ORDERED: APIXABAN 2.5 MG TABLET ONE (09:52)
[2020-07-05] MEDS ORDERED: levETIRAcetam 500 MG TABLET (FP) PO ONE (09:53)
[2020-07-05] MEDS: APIXABAN 2.5 MG TABLET PO SCH ×2 (09:56→22:22)
[2020-07-05] MEDS: levETIRAcetam 500 MG TABLET (FP) PO SCH ×2 (09:56→22:22)
[2020-07-05 10:04] LABS: BASO % 0.5 % (0-2.0); EOS % 2.7 % (0-4.5); HEMATOCRIT 38.1 % (32.4-45.2); HEMOGLOBIN 12.6 GM/dL (10.7-15.3); LYMPH % 17.6 % (8-40); MCHC 33.1 g/dl (32.0-36.0); MEAN CELL VOLUME 87.6 fl (80-96); MEAN PLT VOLUME 8.6 fl (7.5-11.1); MONO % 8.1 % (3.8-10.2); NEUT % 71.1 % (42.8-82.8); PLATELET COUNT 201 K/MM3 (134-434); RBC 4.35 M/mm3 (3.60-5.2); RDW 16.7 % (11.6-15.6); WHITE BLOOD COUNT 15.3 K/mm3 (4.0-10.0)
[2020-07-05 10:35] LABS: BILIRUBIN,TOTAL 0.8 mg/dL (0.2-1); BLOOD UREA NITROGEN 26.7 mg/dL (7-18); CALCIUM 8.8 mg/dL (8.5-10.1); CREATININE 0.9 mg/dL (0.55-1.3); POTASSIUM 3.5 mmol/L (3.5-5.1); TOT PROT 5.7 g/dl (6.4-8.2)
--- NOTE | 2020-07-05 10:35 | EKG ---
Test Reason : Blood Pressure : / mmHG Vent. Rate : 082 BPM Atrial Rate : 093 BPM P-R Int : 124 ms QRS Dur : 078 ms QT Int : 388 ms P-R-T Axes : 068 009 -01 degrees QTc Int : 453 ms SINUS RHYTHM WITH MARKED SINUS ARRHYTHMIA WITH OCCASIONAL PREMATURE VENTRICULAR COMPLEXES WHEN COMPARED WITH ECG OF 22-JUN-2020 22:40, PREMATURE VENTRICULAR COMPLEXES ARE NOW PRESENT Confirmed by LUIS A JOSEPH MD ([id number]) on 07/05/2020 10:34:57 AM Referred By: Confirmed By:LUIS A JOSEPH MD
--- NOTE | 2020-07-05 14:24 | PN ---
Progress Note (short form) - Note Progress Note: ID CONSULT DICTATED OTITIS EXTERNA PCN ALLERGY AWAIT C/S EMPIRIC VANCOMYCIN/ LEVAQUIN
--- NOTE | 2020-07-05 14:36 | PN ---
Progress Note, Physician History of Present Illness: pt seen/ examined in er chart is reviewed awake/comfortable c/c- pain ear No distress - Current Medication List Current Medications: Active Medications Apixaban (Eliquis -) 2.5 mg PO BID [facility] Last Admin: 07/05/20 09:56 Dose: 2.5 mg Documented by: Sodium Chloride (Normal Saline -) 1,000 mls @ 50 mls/hr IV ASDIR [facility] Stop: 07/05/20 23:56 Last Admin: 07/05/20 01:20 Dose: 50 mls/hr Documented by: Vancomycin HCl (Vancomycin (Pre-Docked)) 1,000 mg in 250 mls @ 200 mls/hr IVPB DAILY@1500 [facility]; Protocol Levofloxacin (Levaquin 250 Mg Premixed Ivpb -) 250 mg in 50 mls @ 50 mls/hr IVPB DAILY [facility]; Protocol Insulin Aspart (Novolog Vial Sliding Scale -) 1 vial SQ ACHS [facility]; Protocol Last Admin: 07/05/20 11:55 Dose: Not Given Documented by: Levetiracetam (Keppra -) 750 mg PO BID [facility] Last Admin: 07/05/20 09:56 Dose: 750 mg Documented by: Levothyroxine Sodium (Synthroid -) 25 mcg PO ACBK [facility] Last Admin: 07/05/20 07:32 Dose: 25 mcg Documented by: - Objective Vital Signs: Vital Signs Temperature 98.2 F 07/05/20 11:00 Pulse Rate 89 07/05/20 11:00 Respiratory Rate 17 07/05/20 11:00 Blood Pressure 119/56 L 07/05/20 13:27 O2 Sat by Pulse Oximetry (%) 97 07/05/20 11:00 Constitutional: Yes: No Distress Neck: Yes: Supple Cardiovascular: Yes: Regular Rate and Rhythm Respiratory: Yes: CTA Bilaterally Gastrointestinal: Yes: Soft Edema: No Wound/Incision: Yes: Other (left ear --pinna reddened) Neurological: Yes: Alert Psychiatric: Yes: Alert Labs: CBC, BMP 07/05/20 09:30 07/05/20 09:30 Problem List - Problems (1) Cellulitis of auricle of ear Code(s): H60.10 - CELLULITIS OF EXTERNAL EAR, UNSPECIFIED EAR Qualifiers: Laterality: left Qualified Code(s): H60.12 - Cellulitis of left external ear Assessment/Plan Clinically stable continue present care abx -- per i/d fall precautions will follow
[2020-07-05] MEDS ORDERED: VANCOMYCIN 1 GRAM (PRE-DOCKED) 1,000 MG/250 ML BAG IVPB ONE (15:04)
[2020-07-05] MEDS: VANCOMYCIN 1 GRAM (PRE-DOCKED) 1,000 MG/250 ML BAG IVPB SCH (15:12)
--- NOTE | 2020-07-05 15:31 | CONS ---
DATE OF CONSULTATION: DATE OF DICTATION: 07/05/2020 HISTORY: [id number] female, diabetic, evaluated for otitis externa. History was obtained from the chart. She is an 79-year-old female who was admitted to the hospital on July 04, 2020, after recurrent falls. She had sustained trauma to her left ear as well as her left lower extremity. She presented to the emergency room where she was noted to have a laceration of the left pinna with surrounding erythema and swelling. The patient is normally poorly ambulatory and has had history of recurrent falls. She fell approximately 3 days prior to admission, sustaining trauma to her left ear and left lower extremity. No loss of consciousness was reported. She was evaluated in the emergency room where she was noted to have a laceration of the left pinna with erythema, warmth, and swelling. She was empirically treated with Levaquin. At the present time she complains of left ear pain. She denies any associated fever or chills. She also complains of left lower extremity pain. Her admitting laboratory data showed a white count of 18.3. She was empirically treated with Levaquin. PAST MEDICAL HISTORY: Positive for insulin-dependent diabetes mellitus; atrial fibrillation; hypothyroidism; asthma, prednisone dependent; COPD; congestive heart failure; hypertension; hypothyroidism. ALLERGIES: PENICILLIN. Nature of the allergy not known. MEDICATIONS: Include Levaquin, Eliquis, Keppra. SOCIAL HISTORY: Lives at home in the community. She is a nonsmoker, nondrinker. REVIEW OF SYSTEMS: Neurologic: No loss of consciousness, seizure activity, focal weakness. Cardiac: Negative chest pain or palpitations. Respiratory: Negative cough or sputum production. Gastrointestinal: Negative vomiting or diarrhea. Genitourinary: Negative for urinary tract infection. LABORATORY DATA: White count on admission 18.3, presently 15.3. Hematocrit 29.0, platelet count 201. BUN 26, creatinine 0.9. Liver enzymes normal. COVID-19 pending. Cultures pending. PHYSICAL EXAMINATION: General: She is awake and alert. She is in no acute distress. She is not acutely toxic appearing. Vital Signs: Temperature 98.2, blood pressure 120/53, pulse 89, regular. Respirations 97 per minute. Respiratory rate 17. HEENT: Sclerae are anicteric. Examination of the left pinna: There is a laceration present within the left pinna with surrounding erythema, warmth, and swelling. No purulent drainage is noted. Cardiovascular: Heart sounds S1, S2. Lungs: Clear. Abdomen: Soft, nontender. Extremities: Positive for edema. There were ecchymotic areas noted, left pretibial area. IMPRESSION: 1. Otitis externa. 2. Penicillin allergy. Obtain blood cultures in light of leukocytosis which may be steroid-induced. Empiric antibiotic coverage with Levaquin and vancomycin. ENT evaluation. Previous cultures have been positive for pseudomonas, quinolone sensitive. Local wound care. Will follow. Thank you for the kind referral. LUIS A COKER M.D. [id number]
--- NOTE | 2020-07-05 16:22 | CONSULT ---
Consult Consult Specialty:: Nephrology Reason for Consultation:: LUCIANA - History of Present Illness Chief Complaint: left ear pain History of Present Illness: Pt is an 79 year old female with pmhx of chf, a-fib, htn, dm, copd, hypothyroidism who presents to the ER with recurrent falls and left ear pain. She was found to have elevated reimbursement representative. She denies dysuria or hematuria. She denies nsaid use. She fell and hit her left ear on a doorknob. She complains of pain and redness. - History Source History Provided By: Patient - Past Medical History COUNTER HOP: Yes: CVA, Seizure ( last seizure >10yrs ago), Vertigo Cardio/Vascular: Yes: Aortic Stenosis, HTN Pulmonary: Yes: Asthma, Bronchitis, Pneumonia. No: Cancer, COPD, O2 Dependent, Previously Intubated, Pulmonary Embolus, Pulmonary Fibrosis, Sleep Apnea Gastrointestinal: Yes: Gastritis ...: No Musculoskeletal: Yes: Other (arthritis (type not specificed)) ENT: Yes: Sinusitis Endocrine: Yes: Hypothyroidism Additional Medical History: DVTs, HPL - Past Surgical History Past Surgical History: Yes: Breast Biopsy, Hysterectomy (Possible) - Alcohol/Substance Use Hx Alcohol Use: No History of Substance Use: reports: None - Smoking History Smoking history: Never smoked Have you smoked in the past 12 months: No Aproximately how many cigarettes per day: 0 - Social History Usual Living Arrangement: With Child ADL: Independent Occupation: retired 20 yrs ago History of Recent Travel: Yes (traveled from [place]) Home Medications - Allergies Allergies/Adverse Reactions: Allergies Allergy/AdvReac Type Severity Reaction Status Date / Time Penicillins Allergy Swelling Verified 07/04/20 16:37 - Home Medications Home Medications: Ambulatory Orders Levothyroxine [Synthroid -] 25 mcg PO DAILY 04/15/17 Losartan/Hydrochlorothiazide [Losartan-Hctz 100-25 mg Tab] 1 each PO DAILY 04/15/17 Apixaban [Eliquis] 2.5 mg PO BID 06/11/19 levETIRAcetam [Keppra -] 750 mg PO BID 08/12/19 Meclizine HCl [Antivert -] 25 mg PO BID PRN 08/13/19 Albuterol 0.083% Nebulizer Prabha [Ventolin 0.083% Nebulizer Soln -] 1 amp NEB Q4H PRN amp 08/21/19 Montelukast Na [Singulair -] 10 mg PO HS #1 tablet 10/21/19 Pantoprazole Sodium [Protonix -] 40 mg PO DAILY 30 Days #30 tablet.ec 04/08/20 Albuterol Sulfate Inhaler - [Ventolin HFA Inhaler -] 2 puff IH Q4H PRN inhaler 05/20/20 Insulin (Levemir) [Levemir Vial] 8 units SQ HS units 05/20/20 Fluticasone/Salmeterol [Advair Hfa 115-21 Mcg Inhaler] 0 inh PO BID 06/22/20 Furosemide [Lasix] 40 mg PO DAILY 06/22/20 Insulin Aspart [Novolog] 8 unit SQ AM 06/22/20 Albuterol 2.5/Ipratropium 0.5 [Duoneb -] 1 amp NEB Q4H #30 amp 06/26/20 Family Medical History Family Hx Cancer: Mother (Colon cancer), Sister (BCA) Review of Systems - Review of Systems Constitutional: reports: Weakness Eyes: reports: No Symptoms HENT: reports: Ear Pain Neck: reports: No Symptoms Cardiovascular: reports: No Symptoms Respiratory: reports: No Symptoms Gastrointestinal: reports: No Symptoms Genitourinary: reports: No Symptoms Musculoskeletal: reports: No Symptoms Integumentary: reports: No Symptoms Neurological: reports: No Symptoms Endocrine: reports: No Symptoms Hematology/Lymphatic: reports: No Symptoms Psychiatric: reports: No Symptoms Physical Exam Vital Signs: Vital Signs Temperature 98.2 F 07/05/20 11:00 Pulse Rate 89 07/05/20 11:00 Respiratory Rate 17 07/05/20 11:00 Blood Pressure 119/56 L 07/05/20 13:27 O2 Sat by Pulse Oximetry (%) 97 07/05/20 11:00 Constitutional: Yes: Calm Eyes: Yes: Conjunctiva Clear HENT: Yes: Other (left ear erythema) Neck: Yes: Supple Cardiovascular: Yes: S1, S2 Respiratory: Yes: CTA Bilaterally Gastrointestinal: Yes: Soft Renal/: Yes: WNL Edema: No Neurological: Yes: Oriented Psychiatric: Yes: Oriented Labs: CBC, BMP 07/05/20 09:30 07/05/20 09:30 Imaging - Results Ultrasound: Report Reviewed Problem List - Problems (1) Cellulitis of auricle of ear Code(s): H60.10 - CELLULITIS OF EXTERNAL EAR, UNSPECIFIED EAR Qualifiers: Laterality: left Qualified Code(s): H60.12 - Cellulitis of left external ear (2) Fall Code(s): W19.XXXA - UNSPECIFIED FALL, INITIAL ENCOUNTER Qualifiers: Encounter type: initial encounter Qualified Code(s): W19.XXXA - Unspecified fall, initial encounter Assessment/Plan Current Medications Generic Name Dose Route Start Last Admin Trade Name Freq PRN Reason Stop Dose Admin Apixaban 2.5 mg 07/05/20 10:00 07/05/20 09:56 Eliquis - PO 2.5 mg BID LUIZA Administration Sodium Chloride 1,000 mls @ 50 mls/hr 07/04/20 23:45 07/05/20 01:20 Normal Saline - IV 07/05/20 23:56 50 mls/hr ASDIR LUIZA Administration Vancomycin HCl 1,000 mg in 250 mls @ 200 mls/hr 07/05/20 15:00 07/05/20 15:12 Vancomycin (Pre-Docked) IVPB 200 mls/hr DAILY@1500 LUIZA Administration Protocol Levofloxacin 250 mg in 50 mls @ 50 mls/hr 07/05/20 16:00 07/05/20 16:10 Levaquin 250 Mg Premixed Ivpb - IVPB 50 mls/hr DAILY LUIZA Administration Protocol Insulin Aspart 1 vial 07/05/20 07:00 07/05/20 11:55 Novolog Vial Sliding Scale - SQ Not Given ACHS LUIZA Protocol Levetiracetam 750 mg 07/05/20 10:00 07/05/20 09:56 Keppra - PO 750 mg BID LUIZA Administration Levothyroxine Sodium 25 mcg 07/05/20 07:00 07/05/20 07:32 Synthroid - PO 25 mcg ACBK LUIZA Administration Laboratory Tests 06/23/20 07/04/20 07/04/20 06:18 17:20 17:20 WBC 18.3 H Sodium BUN 38.5 H Creatinine 1.0 1.2 COVID-19 (OCT[facility]IO) 07/05/20 07/05/20 07/05/20 06:41 09:30 09:30 WBC 15.3 H Sodium 144 BUN 26.7 H Creatinine 0.9 COVID-19 (OCT[facility]IO) Pending IMpression 1. dehydration 2. otitis externa 3. s/p fall 4. htn 5. hypotyrodism 6. renal cyst Plan - renal function is improved - encourage po intake - repeat labs in am - check ua - renal cyst should be followed on ultrasound - abx per medical team - will follow prn
[2020-07-05 19:00] LABS: EPI CELLS 5 /uL (0-25.1); HYALINE CASTS 3 /uL (0-3.1); URINE APPEARANCE CLOUDY; URINE BACTERIA >9,000 /uL (0-1359); URINE BILIRUBIN NEGATIVE (NEGATIVE); URINE COLOR YELLOW; URINE GLUCOSE (UA) NEGATIVE (NEGATIVE); URINE KETONE NEGATIVE (NEGATIVE); URINE LEUK ESTERASE 2+ (NEGATIVE); URINE NITRITE POSITIVE (NEGATIVE); URINE PROTEIN NEGATIVE (NEGATIVE); URINE RBC 6 /uL (0-23.9); URINE UROBILINOGEN 0.2 mg/dL (0.2-1.0); URINE WBC 438 /uL (0-25.8)
[2020-07-05] MEDS ORDERED: PNEUMOC 13-VAL CONJ-DIP CRM/PF 0.5 ML DISP.SYRIN IM ONE (20:16)
[2020-07-05 20:17] VITALS: BMI 30.6
[2020-07-05 20:30] LABS: ALBUMIN 2.8 g/dl (3.4-5.0); BILIRUBIN,TOTAL 0.3 mg/dL (0.2-1); CALCIUM 8.3 mg/dL (8.5-10.1); CREATININE 0.9 mg/dL (0.55-1.3); POTASSIUM 3.9 mmol/L (3.5-5.1); TOT PROT 5.4 g/dl (6.4-8.2)
[2020-07-06] MEDS: INSULIN SLIDING SCALE (NOVOLOG) 1 VIAL SQ SCH ×4 (06:15→21:25)
[2020-07-06] MEDS: LEVOTHYROXINE NA 25 MCG TABLET (FP) PO SCH (06:16)
[2020-07-06 08:20] LABS: BASO % 0.7 % (0-2.0); EOS % 3.2 % (0-4.5); HEMATOCRIT 39.3 % (32.4-45.2); HEMOGLOBIN 12.9 GM/dL (10.7-15.3); LYMPH % 16.7 % (8-40); MCHC 32.7 g/dl (32.0-36.0); MEAN CELL VOLUME 88.8 fl (80-96); MEAN PLT VOLUME 9.3 fl (7.5-11.1); MONO % 6.5 % (3.8-10.2); NEUT % 72.9 % (42.8-82.8); PLATELET COUNT 205 K/MM3 (134-434); RBC 4.43 M/mm3 (3.60-5.2); RDW 16.9 % (11.6-15.6); WHITE BLOOD COUNT 13.4 K/mm3 (4.0-10.0)
[2020-07-06] MEDS ORDERED: ALBUTEROL SO4 HFA INHALER IH ONE (09:10)
[2020-07-06] MEDS ORDERED: ALBUTEROL SO4 HFA INHALER IH PRN (09:13)
[2020-07-06] MEDS: APIXABAN 2.5 MG TABLET PO SCH ×2 (09:13→21:26)
[2020-07-06] MEDS: levETIRAcetam 500 MG TABLET (FP) PO SCH ×2 (09:13→21:26)
[2020-07-06] MEDS ORDERED: ACETAMINOPHEN 325 MG TABLET (FP) PO PRN (10:14)
--- NOTE | 2020-07-06 10:14 | PN ---
Progress Note, Physician History of Present Illness: pt seen/ examined ear looks better awake/comfortable mild anxiety present Covid negative - Current Medication List Current Medications: Active Medications Albuterol Sulfate (Ventolin Hfa Inhaler -) 2 puff IH Q4H PRN PRN Reason: SHORTNESS OF BREATH Last Admin: 07/06/20 09:50 Dose: 2 puff Documented by: Albuterol/Ipratropium (Duoneb -) 1 amp NEB Q6H PRN PRN Reason: SHORTNESS OF BREATH Apixaban (Eliquis -) 2.5 mg PO BID [facility] Last Admin: 07/06/20 09:13 Dose: 2.5 mg Documented by: Vancomycin HCl (Vancomycin (Pre-Docked)) 1,000 mg in 250 mls @ 200 mls/hr IVPB DAILY@1500 [facility]; Protocol Last Admin: 07/05/20 15:12 Dose: 200 mls/hr Documented by: Levofloxacin (Levaquin 250 Mg Premixed Ivpb -) 250 mg in 50 mls @ 50 mls/hr IVPB DAILY [facility]; Protocol Last Admin: 07/06/20 09:15 Dose: 50 mls/hr Documented by: Influenza Virus Vaccine (Flulaval Quad 0570-6001 Syr) 60 mcg IM .ONCE ONE Stop: 07/05/20 20:17 Insulin Aspart (Novolog Vial Sliding Scale -) 1 vial SQ ACHS [facility]; Protocol Last Admin: 07/06/20 06:15 Dose: Not Given Documented by: Levetiracetam (Keppra -) 750 mg PO BID [facility] Last Admin: 07/06/20 09:13 Dose: 750 mg Documented by: Levothyroxine Sodium (Synthroid -) 25 mcg PO ACBK [facility] Last Admin: 07/06/20 06:16 Dose: 25 mcg Documented by: - Objective Vital Signs: Vital Signs Temperature 98.4 F 07/06/20 05:00 Pulse Rate 94 H 07/06/20 05:00 Respiratory Rate 18 07/06/20 05:00 Blood Pressure 114/77 07/06/20 05:00 O2 Sat by Pulse Oximetry (%) 97 07/06/20 05:00 Constitutional: Yes: No Distress, Anxious HENT: Yes: Other (Left ear improvement) Neck: Yes: Supple Cardiovascular: Yes: Regular Rate and Rhythm Respiratory: Yes: Rhonchi Gastrointestinal: Yes: Soft Edema: No Labs: CBC, BMP 07/06/20 07:10 07/05/20 14:30 Problem List - Problems (1) Cellulitis of auricle of ear Code(s): H60.10 - CELLULITIS OF EXTERNAL EAR, UNSPECIFIED EAR Qualifiers: Laterality: left Qualified Code(s): H60.12 - Cellulitis of left external ear Assessment/Plan Clinically stable continue present care abx -- per i/d fall precautions will follow continue nebulizer treatment
[2020-07-06 10:19] LABS: ANISOCYTOSIS 1+; MACROCYTOSIS 1+; PLATELET ESTIMATE NORMAL; TARGET CELLS 1+
[2020-07-06] MEDS ORDERED: ALBUTEROL SO4 2.5/IPRATROPIUM 0.5 INH SOL 3 ML VIAL.NEB. NEB PRN (11:58)
[2020-07-06] MEDS ORDERED: FLU VACCINE (FLULAVAL) PF 60 MCG/0.5 ML SYRINGE 2020-2021 IM ONE (13:30)
[2020-07-06] MEDS: VANCOMYCIN 1 GRAM (PRE-DOCKED) 1,000 MG/250 ML BAG IVPB SCH (14:59)
--- NOTE | 2020-07-06 16:47 | CONSULT ---
Consult - text type - Consultation Consultation Note: NEUROLOGY CONSULTATION is greatly appreciated: Events reviewed. Patient examined with her daughter at the bedside who aides with translation. This 79 yo RH woman loves with her daughter. 2 sons elsewhere. PMH sig for HTN, DM, ASHD, AFib, hypothyroidism, COPD and seizures controlled with levetiracetam x 12 yrs. Maintained on: Levothyroxine; Losartan-Hctz; Simvastatin; Apixaban; Meclizine; Albuterol; Montelukast; Pantoprazole; Insulin; Advair; Lasix; 0 Spironolactone; Aripiprazole 5 mg; predniSONE. pisodic LBP x years. Few years of progressive gait deterioration. Walking with walker x 1 year. Increasing falls x 2 mos. 2 falls last month and 4 so far this month. Patient attributes to right leg weakness. In W/C at home "most of the time" according to daughter. Many years of numbness, tingling and weakness in both hands. CT of head (reviewed): Moderate, diffuse atrophy, diffuse microvascular changs, Calcification of the basal ganglia. WBC= 18.3 K, Urine WBC= 438 Now on Levaquin MIKE: Puncture wound left ear. Diffuse ecchymoses left leg. No bruits. - Cleaning's. - SLR NEURO: MS/speech : Normal Motor: No drift, tremor or cogwheeling.Both APB's 2/5 with severe atrophy Right knee extension 4/5. Absent right KJ (left is normal). AJ's 1+ on the right and 2+ on the left. Toes downgoing Coord: No FTN dystaxia Sensory: Variable. Possible decreased vib feet and decreased Pin both median dist. Gait: Deferred IMP: 1. 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 L 4 radiculopathy. 2. Severe B/L carpal tunnel syndromes SUGGEST: PM & R consultation; EMG/NCS legs; and PT as directed. MRI of LS spine (C-). Thank you very much, Marcus Gu MD
[2020-07-06] MEDS ORDERED: PT OWN MED DRAWER 7, Y5N ONE (18:01)
[2020-07-06] MEDS: BACITRACIN 15 GM TUBE TOPICAL OINTMENT TP SCH ×2 (19:10→21:25)
[2020-07-06] MEDS: NYSTATIN POWDER 100,000 UNITS/GM - 15 GM TOPICAL POWDER TP SCH ×2 (19:10→21:25)
[2020-07-06] MEDS ORDERED: INSULIN (NOVOLOG) ASPART 100 UNITS/ML 10ML VIAL ONE (21:20)
[2020-07-06] MEDS: SODIUM CHLORIDE 1,000 ML IV SCH (21:26)
[2020-07-07] MEDS: LEVOTHYROXINE NA 25 MCG TABLET (FP) PO SCH (05:59)
[2020-07-07] MEDS: INSULIN SLIDING SCALE (NOVOLOG) 1 VIAL SQ SCH ×4 (06:00→22:16)
--- NOTE | 2020-07-07 09:37 | PN ---
Progress Note, Physician History of Present Illness: pt seen/ examined ear looks better-- awake/comfortable mild anxiety present Covid negative Afebrile Small opening on the abdominal wall--Bacitracin has been ordered No distress neurology consult noted MRI noted--- Degenerative disease - Current Medication List Current Medications: Active Medications Acetaminophen (Tylenol -) 650 mg PO Q6H PRN PRN Reason: PAIN LEVEL 4 - 6 Albuterol/Ipratropium (Duoneb -) 1 amp NEB Q6H PRN PRN Reason: SHORTNESS OF BREATH Apixaban (Eliquis -) 2.5 mg PO BID [facility] Last Admin: 07/06/20 21:26 Dose: 2.5 mg Documented by: Bacitracin (Bacitracin -) 1 applic TP BID [facility] Last Admin: 07/06/20 21:25 Dose: 1 applic Documented by: Vancomycin HCl (Vancomycin (Pre-Docked)) 1,000 mg in 250 mls @ 200 mls/hr IVPB DAILY@1500 [facility]; Protocol Last Admin: 07/06/20 14:59 Dose: 200 mls/hr Documented by: Levofloxacin (Levaquin 250 Mg Premixed Ivpb -) 250 mg in 50 mls @ 50 mls/hr IVPB DAILY [facility]; Protocol Last Admin: 07/06/20 09:15 Dose: 50 mls/hr Documented by: Insulin Aspart (Novolog Vial Sliding Scale -) 1 vial SQ ACHS [facility]; Protocol Last Admin: 07/07/20 06:00 Dose: Not Given Documented by: Levetiracetam (Keppra -) 750 mg PO BID [facility] Last Admin: 07/06/20 21:26 Dose: 750 mg Documented by: Levothyroxine Sodium (Synthroid -) 25 mcg PO ACBK [facility] Last Admin: 07/07/20 05:59 Dose: 25 mcg Documented by: Nystatin (Nystop Powder -) 1 applic TP BID [facility] Last Admin: 07/06/20 21:25 Dose: 1 applic Documented by: - Objective Vital Signs: Vital Signs Temperature 98.6 F 07/07/20 09:23 Pulse Rate 97 H 07/07/20 09:23 Respiratory Rate 18 07/07/20 09:23 Blood Pressure 111/63 07/07/20 09:23 O2 Sat by Pulse Oximetry (%) 97 10/11/20 09:23 Constitutional: Yes: No Distress, Anxious (Mild anxiety) HENT: Yes: Other (left ear/pinnae-better--) Neck: Yes: Supple Cardiovascular: Yes: Regular Rate and Rhythm Respiratory: Yes: Diminished, Other (few scattered rhonchi) Gastrointestinal: Yes: Soft Edema: No Neurological: Yes: Alert Labs: CBC, BMP 07/06/20 07:10 07/05/20 14:30 Problem List - Problems (1) Cellulitis of auricle of ear Code(s): H60.10 - CELLULITIS OF EXTERNAL EAR, UNSPECIFIED EAR Qualifiers: Laterality: left Qualified Code(s): H60.12 - Cellulitis of left external ear Assessment/Plan Clinically stable continue present care abx -- per i/d ID to follow daily out of bed to chair will follow continue nebulizer treatment I also discussed with patient's daughter yesterday
[2020-07-07] MEDS: levETIRAcetam 500 MG TABLET (FP) PO SCH ×2 (11:11→22:16)
[2020-07-07] MEDS: BACITRACIN 15 GM TUBE TOPICAL OINTMENT TP SCH ×2 (11:12→22:16)
[2020-07-07] MEDS: APIXABAN 2.5 MG TABLET PO SCH ×2 (11:12→22:15)
[2020-07-07] MEDS: NYSTATIN POWDER 100,000 UNITS/GM - 15 GM TOPICAL POWDER TP SCH ×2 (11:12→22:16)
--- NOTE | 2020-07-07 11:31 | PN ---
Progress Note, Physician Chief Complaint: C/O L EAR PAIN NO F/C WBC IMPROVED BC (-) URINE LF - Current Medication List Current Medications: Active Medications Acetaminophen (Tylenol -) 650 mg PO Q6H PRN PRN Reason: PAIN LEVEL 4 - 6 Albuterol/Ipratropium (Duoneb -) 1 amp NEB Q6H PRN PRN Reason: SHORTNESS OF BREATH Apixaban (Eliquis -) 2.5 mg PO BID [facility] Last Admin: 07/07/20 11:12 Dose: 2.5 mg Documented by: Bacitracin (Bacitracin -) 1 applic TP BID [facility] Last Admin: 07/07/20 11:12 Dose: 1 applic Documented by: Vancomycin HCl (Vancomycin (Pre-Docked)) 1,000 mg in 250 mls @ 200 mls/hr IVPB DAILY@1500 [facility]; Protocol Last Admin: 07/06/20 14:59 Dose: 200 mls/hr Documented by: Levofloxacin (Levaquin 250 Mg Premixed Ivpb -) 250 mg in 50 mls @ 50 mls/hr IVPB DAILY [facility]; Protocol Last Admin: 07/07/20 11:11 Dose: 50 mls/hr Documented by: Insulin Aspart (Novolog Vial Sliding Scale -) 1 vial SQ ACHS [facility]; Protocol Last Admin: 07/07/20 11:12 Dose: Not Given Documented by: Levetiracetam (Keppra -) 750 mg PO BID [facility] Last Admin: 07/07/20 11:11 Dose: 750 mg Documented by: Levothyroxine Sodium (Synthroid -) 25 mcg PO ACBK [facility] Last Admin: 07/07/20 05:59 Dose: 25 mcg Documented by: Nystatin (Nystop Powder -) 1 applic TP BID [facility] Last Admin: 07/07/20 11:12 Dose: 1 applic Documented by: - Objective Vital Signs: Vital Signs Temperature 98.6 F 07/07/20 09:23 Pulse Rate 97 H 07/07/20 09:23 Respiratory Rate 18 07/07/20 09:23 Blood Pressure 111/63 07/07/20 09:23 O2 Sat by Pulse Oximetry (%) 97 07/07/20 09:23 Constitutional: Yes: No Distress Eyes: Yes: Conjunctiva Clear HENT: Yes: Other (DRY ULCER L EAR DECREASED SWELLING NO ERYTHEMA) Cardiovascular: Yes: Regular Rate and Rhythm, S1, S2 Respiratory: Yes: CTA Bilaterally Gastrointestinal: Yes: Normal Bowel Sounds, Soft. No: Tenderness Extremities: Yes: Other (ECCYMOSIS L LE) Labs: CBC, BMP 07/06/20 07:10 07/05/20 14:30 Assessment/Plan OTITIS EXTERNA IMPROVED UTI LEUKOCYTOSIS PCN ALLERGY IF STABLE, SUBSTITUTE LEVAQUIN 250MG PO QD
[2020-07-07] MEDS: VANCOMYCIN 1 GRAM (PRE-DOCKED) 1,000 MG/250 ML BAG IVPB SCH (15:28)
[2020-07-08] MEDS: LEVOTHYROXINE NA 25 MCG TABLET (FP) PO SCH (06:11)
[2020-07-08] MEDS: INSULIN SLIDING SCALE (NOVOLOG) 1 VIAL SQ SCH ×4 (06:12→21:30)
[2020-07-08] MEDS ORDERED: INSULIN (NOVOLOG) ASPART 100 UNITS/ML 10ML VIAL ONE (06:16)
[2020-07-08] MEDS ORDERED: INSULIN (LEVEMIR) 100 UNITS/ML UNITS SQ ONE (06:16)
[2020-07-08] MEDS: APIXABAN 2.5 MG TABLET PO SCH ×2 (11:12→21:25)
[2020-07-08] MEDS: BACITRACIN 15 GM TUBE TOPICAL OINTMENT TP SCH ×2 (11:12→21:31)
[2020-07-08] MEDS: levETIRAcetam 500 MG TABLET (FP) PO SCH ×2 (11:12→21:25)
[2020-07-08] MEDS: NYSTATIN POWDER 100,000 UNITS/GM - 15 GM TOPICAL POWDER TP SCH ×2 (12:30→21:31)
--- NOTE | 2020-07-08 13:21 | DS ---
Physical Examination Vital Signs: Vital Signs Temperature 98.3 F 07/08/20 06:00 Pulse Rate 83 07/08/20 06:00 Respiratory Rate 20 07/08/20 06:00 Blood Pressure 133/83 07/08/20 06:00 O2 Sat by Pulse Oximetry (%) 98 07/08/20 06:00 Findings/Remarks: pt seen/ examined awake/ comfortable no distress afebrile complains of mild discomfort -medially to left ear left ear much better-- dry / healing lesion-- Almost healed Constitutional: Yes: No Distress HENT: Yes: Other (left ear-- dry scab/healed area) Neck: Yes: Supple Cardiovascular: Yes: Regular Rate and Rhythm Respiratory: Yes: Diminished Gastrointestinal: Yes: Soft Edema: No Neurological: Yes: Alert Labs: CBC, BMP 07/06/20 07:10 07/05/20 14:30 Discharge Summary Problems reviewed: Yes Reason For Visit: ACUTE INFECTION OF PINNA, DIABETES MELLITUS, FALL Current Active Problems Cellulitis of auricle of ear (Acute) Fall (Acute) Perichondritis of auricle (Acute) Hospital Course: Ms. Anlai Cooper is an 79 year old woman PMH CHF, Afib on Eliquis, hypertension , IDDM, COPD, hypothyroidism,Lumbar radiculopathy admitted for left pinna infection treated with abx much better stable for d/c home on po abx I/D also followed pt has recent falls Mri - LS spine severe lumbar radiculopathy She should benefit from STR--pt/ daughter wants to go home fall precautions Close f/u with her pmd in few days advised Levaquin also prescribed for 5 days Pt will need to see dentist if pain in front of ear worsens or not resolves. 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 also Had d/w pts daughter couple of days ago also time spend in d/c approx 40 min - in documenting/ examining/ coordating fall precautions also to be maintained Condition: Guarded - Instructions Referrals: Vasquez Abbott MD [Primary Care Provider] - Disposition: HOME - Home Medications Comprehensive Discharge Medication List: Ambulatory Orders Levothyroxine [Synthroid -] 25 mcg PO DAILY 04/15/17 Losartan/Hydrochlorothiazide [Losartan-Hctz 100-25 mg Tab] 1 each PO DAILY 04/15/17 Apixaban [Eliquis] 2.5 mg PO BID 06/11/19 levETIRAcetam [Keppra -] 750 mg PO BID 08/12/19 Albuterol 0.083% Nebulizer Prabha [Ventolin 0.083% Nebulizer Soln -] 1 amp NEB Q4H PRN amp 08/21/19 Montelukast Na [Singulair -] 10 mg PO HS #1 tablet 10/21/19 Pantoprazole Sodium [Protonix -] 40 mg PO DAILY 30 Days #30 tablet.ec 04/08/20 Albuterol Sulfate Inhaler - [Ventolin HFA Inhaler -] 2 puff IH Q4H PRN inhaler 05/20/20 Insulin (Levemir) [Levemir Vial] 8 units SQ HS units 05/20/20 Fluticasone/Salmeterol [Advair Hfa 115-21 Mcg Inhaler] 0 inh PO BID 06/22/20 Furosemide [Lasix] 40 mg PO DAILY 06/22/20 Insulin Aspart [Novolog] 8 unit SQ AM 06/22/20 Acetaminophen [Tylenol .Regular Strength -] 650 mg PO Q6H PRN tablet 07/08/20 Bacitracin - [Bacitracin Topical Ointment -] 1 applic TP BID #1 tube 07/08/20 Nystatin Powder [Nystop Powder -] 1 applic TP BID applic 07/08/20 levoFLOXacin [Levaquin -] 250 mg PO DAILY #5 tablet 07/08/20
[2020-07-08] MEDS: VANCOMYCIN 1 GRAM (PRE-DOCKED) 1,000 MG/250 ML BAG IVPB SCH (14:47)
--- NOTE | 2020-07-08 16:06 | PN ---
Progress Note, Physician History of Present Illness: Pt seen and examined at bedside. She says that she feels better. - Current Medication List Current Medications: Active Medications Acetaminophen (Tylenol -) 650 mg PO Q6H PRN PRN Reason: PAIN LEVEL 4 - 6 Albuterol/Ipratropium (Duoneb -) 1 amp NEB Q6H PRN PRN Reason: SHORTNESS OF BREATH Apixaban (Eliquis -) 2.5 mg PO BID [facility] Last Admin: 07/08/20 11:12 Dose: 2.5 mg Documented by: Bacitracin (Bacitracin -) 1 applic TP BID [facility] Last Admin: 07/08/20 11:12 Dose: 1 applic Documented by: Vancomycin HCl (Vancomycin (Pre-Docked)) 1,000 mg in 250 mls @ 200 mls/hr IVPB DAILY@1500 [facility]; Protocol Last Admin: 07/08/20 14:47 Dose: 200 mls/hr Documented by: Levofloxacin (Levaquin 250 Mg Premixed Ivpb -) 250 mg in 50 mls @ 50 mls/hr IVPB DAILY [facility]; Protocol Last Admin: 07/08/20 11:13 Dose: 50 mls/hr Documented by: Insulin Aspart (Novolog Vial Sliding Scale -) 1 vial SQ ACHS [facility]; Protocol Last Admin: 07/08/20 12:03 Dose: Not Given Documented by: Levetiracetam (Keppra -) 750 mg PO BID [facility] Last Admin: 07/08/20 11:12 Dose: 750 mg Documented by: Levothyroxine Sodium (Synthroid -) 25 mcg PO ACBK [facility] Last Admin: 07/08/20 06:11 Dose: 25 mcg Documented by: Nystatin (Nystop Powder -) 1 applic TP BID [facility] Last Admin: 07/08/20 12:30 Dose: 1 applic Documented by: - Objective Vital Signs: Vital Signs Temperature 98.4 F 07/08/20 14:00 Pulse Rate 86 07/08/20 14:00 Respiratory Rate 20 07/08/20 14:00 Blood Pressure 108/54 L 07/08/20 14:00 O2 Sat by Pulse Oximetry (%) 98 07/08/20 14:00 Constitutional: Yes: Calm Eyes: Yes: Conjunctiva Clear HENT: Yes: Atraumatic Neck: Yes: Supple Cardiovascular: Yes: S1, S2 Respiratory: Yes: CTA Bilaterally Gastrointestinal: Yes: Normal Bowel Sounds, Soft Genitourinary: Yes: WNL Musculoskeletal: Yes: WNL Edema: No Neurological: Yes: Oriented Psychiatric: Yes: Oriented Labs: CBC, BMP 07/06/20 07:10 07/05/20 14:30 Problem List - Problems (1) Cellulitis of auricle of ear Code(s): H60.10 - CELLULITIS OF EXTERNAL EAR, UNSPECIFIED EAR Qualifiers: Laterality: left Qualified Code(s): H60.12 - Cellulitis of left external ear (2) Fall Code(s): W19.XXXA - UNSPECIFIED FALL, INITIAL ENCOUNTER Qualifiers: Encounter type: initial encounter Qualified Code(s): W19.XXXA - Unspecified fall, initial encounter Assessment/Plan Current Medications Generic Name Dose Route Start Last Admin Trade Name Freq PRN Reason Stop Dose Admin Acetaminophen 650 mg 07/06/20 10:14 Tylenol - PO Q6H PRN PAIN LEVEL 4 - 6 Albuterol/Ipratropium 1 amp 07/06/20 11:58 Duoneb - NEB Q6H PRN SHORTNESS OF BREATH Apixaban 2.5 mg 07/05/20 10:00 07/08/20 11:12 Eliquis - PO 2.5 mg BID LUIZA Administration Bacitracin 1 applic 07/06/20 17:30 07/08/20 11:12 Bacitracin - TP 1 applic BID LUIZA Administration Vancomycin HCl 1,000 mg in 250 mls @ 200 mls/hr 07/05/20 15:00 07/08/20 14:47 Vancomycin (Pre-Docked) IVPB 200 mls/hr DAILY@1500 LUIZA Administration Protocol Levofloxacin 250 mg in 50 mls @ 50 mls/hr 07/05/20 16:00 07/08/20 11:13 Levaquin 250 Mg Premixed Ivpb - IVPB 50 mls/hr DAILY LUIZA Administration Protocol Insulin Aspart 1 vial 07/05/20 07:00 07/08/20 12:03 Novolog Vial Sliding Scale - SQ Not Given ACHS LUIZA Protocol Levetiracetam 750 mg 07/05/20 10:00 07/08/20 11:12 Keppra - PO 750 mg BID LUIZA Administration Levothyroxine Sodium 25 mcg 07/05/20 07:00 07/08/20 06:11 Synthroid - PO 25 mcg ACBK LUIZA Administration Nystatin 1 applic 07/06/20 17:30 07/08/20 12:30 Nystop Powder - TP 1 applic BID LUIZA Administration Laboratory Tests 07/05/20 18:30 Urine Protein Negative Urine Blood Negative Impression 1. dehydration 2. otitis externa 3. s/p fall 4. htn 5. hypothyroidism 6. renal cyst Plan - no new labs - check cmp in am if not discharged - can see in office for follow up - renal cyst should be followed on ultrasound - abx per medical team
[2020-07-09] MEDS: INSULIN SLIDING SCALE (NOVOLOG) 1 VIAL SQ SCH ×3 (06:11→16:31)
[2020-07-09] MEDS: LEVOTHYROXINE NA 25 MCG TABLET (FP) PO SCH (06:11)
[2020-07-09] MEDS ORDERED: PT OWN MED DRAWER 7, Y5N ONE (09:02)
[2020-07-09] MEDS: levETIRAcetam 500 MG TABLET (FP) PO SCH (09:10)
[2020-07-09] MEDS: APIXABAN 2.5 MG TABLET PO SCH (09:10)
[2020-07-09 09:19] LABS: ALBUMIN 2.6 g/dl (3.4-5.0); BILIRUBIN,TOTAL 0.7 mg/dL (0.2-1); CALCIUM 8.4 mg/dL (8.5-10.1); CREATININE 0.6 mg/dL (0.55-1.3); POTASSIUM 4.4 mmol/L (3.5-5.1)
[2020-07-09] MEDS: BACITRACIN 15 GM TUBE TOPICAL OINTMENT TP SCH (10:29)
[2020-07-09] MEDS: NYSTATIN POWDER 100,000 UNITS/GM - 15 GM TOPICAL POWDER TP SCH (10:30)
[2020-07-09] MEDS ORDERED: INSULIN (NOVOLOG) ASPART 100 UNITS/ML 10ML VIAL ONE (10:53)
--- NOTE | 2020-07-09 11:37 | PN ---
Progress Note (short form) - Note Progress Note: events noted pt's daughter refused to have pt discharged yesterday Pt has pain in left ear-- swelling observed but does not appear to be worse per RN Vital Signs - 24 hr 07/08/20 07/08/20 07/08/20 14:00 21:00 22:00 Temperature 98.4 F 97.4 F L Pulse Rate 86 95 H Respiratory 20 20 Rate Blood Pressure 108/54 L 103/76 O2 Sat by Pulse 98 96 Oximetry (%) 07/09/20 06:38 Temperature 98.8 F Pulse Rate 85 Respiratory 18 Rate Blood Pressure 107/98 O2 Sat by Pulse 97 Oximetry (%) Current Medications Generic Name Dose Route Start Last Admin Trade Name Freq PRN Reason Stop Dose Admin Acetaminophen 650 mg 07/06/20 10:14 Tylenol - PO Q6H PRN PAIN LEVEL 4 - 6 Albuterol/Ipratropium 1 amp 07/06/20 11:58 Duoneb - NEB Q6H PRN SHORTNESS OF BREATH Apixaban 2.5 mg 07/05/20 10:00 07/09/20 09:10 Eliquis - PO 2.5 mg BID LUIZA Administration Bacitracin 1 applic 07/06/20 17:30 07/09/20 10:29 Bacitracin - TP 1 applic BID LUIZA Administration Insulin Aspart 1 vial 07/05/20 07:00 07/09/20 06:11 Novolog Vial Sliding Scale - SQ Not Given ACHS [facility] Protocol Levetiracetam 750 mg 07/05/20 10:00 07/09/20 09:10 Keppra - PO 750 mg BID LUIZA Administration Levofloxacin 250 mg 07/09/20 10:00 Levaquin - PO DAILY@0600 LUIZA Levothyroxine Sodium 25 mcg 07/05/20 07:00 07/09/20 06:11 Synthroid - PO 25 mcg ACBK LUIZA Administration Nystatin 1 applic 07/06/20 17:30 07/09/20 10:30 Nystop Powder - TP 1 applic BID LUIZA Administration Laboratory Results - last 24 hr 07/08/20 07/08/20 07/08/20 11:58 17:19 21:29 Sodium Potassium Chloride Carbon Dioxide Anion Gap BUN Creatinine Est GFR (CKD-EPI)AfAm Est GFR (CKD-EPI)NonAf POC Glucometer 109 109 125 Random Glucose Calcium Total Bilirubin AST ALT Alkaline Phosphatase Total Protein Albumin 07/09/20 07/09/20 07/09/20 06:07 07:53 11:02 Sodium 145 Potassium 4.4 Chloride 113 H Carbon Dioxide 27 Anion Gap 4 L BUN 12.0 Creatinine 0.6 Est GFR (CKD-EPI)AfAm 99.77 Est GFR (CKD-EPI)NonAf 86.09 POC Glucometer 126 143 Random Glucose 107 H Calcium 8.4 L Total Bilirubin 0.7 AST 15 ALT 21 Alkaline Phosphatase 68 Total Protein 5.0 L Albumin 2.6 L S1 S2 Irregular Lungs clear Abd- soft, obese, NT ecchymosis to left lindo A/P UTI Otitis externa CHF - diastolic s/p fall -- pt daughter refusing STR -- continue with po levaquin -- stable for dc home with services -- continue with [facility] Communication Problem List - Problems (1) Otitis externa Code(s): H60.90 - UNSPECIFIED OTITIS EXTERNA, UNSPECIFIED EAR (2) UTI (urinary tract infection) Code(s): N39.0 - URINARY TRACT INFECTION, SITE NOT SPECIFIED (3) Diastolic CHF Code(s): I50.30 - UNSPECIFIED DIASTOLIC (CONGESTIVE) HEART FAILURE (4) Hyperlipemia Code(s): E78.5 - HYPERLIPIDEMIA, UNSPECIFIED Qualifiers: Hyperlipidemia type: pure hypercholesterolemia Qualified Code(s): E78.00 - Pure hypercholesterolemia, unspecified (5) Hypertension Code(s): I10 - ESSENTIAL (PRIMARY) HYPERTENSION Qualifiers: Hypertension type: essential hypertension Qualified Code(s): I10 - Essential (primary) hypertension (6) Hypothyroidism Code(s): E03.9 - HYPOTHYROIDISM, UNSPECIFIED Qualifiers: Hypothyroidism type: unspecified Qualified Code(s): E03.9 - Hypothyroidism, unspecified (7) Type 2 diabetes mellitus Code(s): E11.9 - TYPE 2 DIABETES MELLITUS WITHOUT COMPLICATIONS Qualifiers: Diabetes mellitus shelter insulin use: without shelter use Diabetes mellitus complication status: without complication Qualified Code(s): E11.9 - Type 2 diabetes mellitus without complications
--- NOTE | 2020-07-09 13:16 | PN ---
Progress Note, Physician History of Present Illness: Pt seen and examined at bedside. She is awake and alert. She denies dysuria. - Current Medication List Current Medications: Active Medications Acetaminophen (Tylenol -) 650 mg PO Q6H PRN PRN Reason: PAIN LEVEL 4 - 6 Albuterol/Ipratropium (Duoneb -) 1 amp NEB Q6H PRN PRN Reason: SHORTNESS OF BREATH Apixaban (Eliquis -) 2.5 mg PO BID [facility] Last Admin: 07/09/20 09:10 Dose: 2.5 mg Documented by: Bacitracin (Bacitracin -) 1 applic TP BID [facility] Last Admin: 07/09/20 10:29 Dose: 1 applic Documented by: Insulin Aspart (Novolog Vial Sliding Scale -) 1 vial SQ [facility]; Protocol Last Admin: 07/09/20 12:00 Dose: Not Given Documented by: Levetiracetam (Keppra -) 750 mg PO BID [facility] Last Admin: 07/09/20 09:10 Dose: 750 mg Documented by: Levofloxacin (Levaquin -) 250 mg PO DAILY@0600 [facility] Last Admin: 07/09/20 10:59 Dose: 250 mg Documented by: Levothyroxine Sodium (Synthroid -) 25 mcg PO ACBK [facility] Last Admin: 07/09/20 06:11 Dose: 25 mcg Documented by: Nystatin (Nystop Powder -) 1 applic TP BID [facility] Last Admin: 07/09/20 10:30 Dose: 1 applic Documented by: - Objective Vital Signs: Vital Signs Temperature 98.1 F 07/09/20 08:50 Pulse Rate 101 H 07/09/20 08:50 Respiratory Rate 20 07/09/20 08:50 Blood Pressure 136/77 07/09/20 08:50 O2 Sat by Pulse Oximetry (%) 98 07/09/20 08:50 Constitutional: Yes: Calm Eyes: Yes: Conjunctiva Clear HENT: Yes: Atraumatic Cardiovascular: Yes: S1, S2 Respiratory: Yes: CTA Bilaterally Gastrointestinal: Yes: Soft Genitourinary: Yes: WNL Musculoskeletal: Yes: WNL Edema: No Neurological: Yes: Oriented Psychiatric: Yes: Oriented Labs: CBC, BMP 07/06/20 07:10 07/09/20 07:53 Problem List - Problems (1) Cellulitis of auricle of ear Code(s): H60.10 - CELLULITIS OF EXTERNAL EAR, UNSPECIFIED EAR Qualifiers: Laterality: left Qualified Code(s): H60.12 - Cellulitis of left external ear (2) Fall Code(s): W19.XXXA - UNSPECIFIED FALL, INITIAL ENCOUNTER Qualifiers: Encounter type: initial encounter Qualified Code(s): W19.XXXA - Unspecified fall, initial encounter Assessment/Plan Current Medications Generic Name Dose Route Start Last Admin Trade Name Freq PRN Reason Stop Dose Admin Acetaminophen 650 mg 07/06/20 10:14 Tylenol - PO Q6H PRN PAIN LEVEL 4 - 6 Albuterol/Ipratropium 1 amp 07/06/20 11:58 Duoneb - NEB Q6H PRN SHORTNESS OF BREATH Apixaban 2.5 mg 07/05/20 10:00 07/09/20 09:10 Eliquis - PO 2.5 mg BID LUIZA Administration Bacitracin 1 applic 07/06/20 17:30 07/09/20 10:29 Bacitracin - TP 1 applic BID LUIZA Administration Insulin Aspart 1 vial 07/05/20 07:00 07/09/20 12:00 Novolog Vial Sliding Scale - SQ Not Given ACHS [facility] Protocol Levetiracetam 750 mg 07/05/20 10:00 07/09/20 09:10 Keppra - PO 750 mg BID L[facility] Administration Levofloxacin 250 mg 07/09/20 10:00 07/09/20 10:59 Levaquin - PO 250 mg DAILY@0600 LUIZA Administration Levothyroxine Sodium 25 mcg 07/05/20 07:00 07/09/20 06:11 Synthroid - PO 25 mcg ACBK LUIZA Administration Nystatin 1 applic 07/06/20 17:30 07/09/20 10:30 Nystop Powder - TP 1 applic BID LUIZA Administration Impression 1. dehydration 2. otitis externa 3. s/p fall 4. htn 5. hypothyroidism 6. renal cyst Plan - renal function stable - reviewed bmp - abx per medical team - outpt follow up - renal cyst should be followed on ultrasound
--- NOTE | 2020-07-09 15:13 | CONSULT ---
Consult Consult Specialty:: Physiatry Dr Dupont for Dr Gibson Reason for Consultation:: EMG BLE - History of Present Illness History of Present Illness: This is an 79 year old woman with a medical history of CHF, A fib, HTN, COPD, IDDM, hypothyroidism, who presented to the ED 07/04/2020 with worsening ear pain and knee pain following a fall 4 days [employer]. She was admitted with L ear cellulitis for which Levaquin was started in the ED, and ENT and ID were consulted. Fluids were given for LUCIANA and Renal was consulted. Neurology was consulted for falls; MRI LS spine showed diffuse lumbar DDD with loss of lumbar lordosis, and diffuse facet arthropathy with disc bulges especially at L4-5 causing L L5 nerve root indentation, and an old L3 compression fx. EMG was requested to evaluate for R femoral neuropathy versus radiculopathy. She was seen by PT, and on 07/08/2020 she was Minimum to Moderate Assist in TRansfers, and ambulated 10 feet Minimum Assist with Rolling Walker. 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 No: Cancer, COPD, O2 Dependent, Previously Intubated, Pulmonary Embolus, Pulmonary Fibrosis, Sleep Apnea Gastrointestinal: Yes: Gastritis ...: No Musculoskeletal: Yes: Other (arthritis (type not specificed)) ENT: Yes: Sinusitis Endocrine: Yes: Hypothyroidism Additional Medical History: DVTs, HPL - Past Surgical History Past Surgical History: Yes: Breast Biopsy, Hysterectomy (Possible) - Alcohol/Substance Use Hx Alcohol Use: No History of Substance Use: reports: None - Smoking History Smoking history: Never smoked Have you smoked in the past 12 months: No Aproximately how many cigarettes per day: 0 - Social History Usual Living Arrangement: With Child ADL: Independent Occupation: retired 20 yrs ago History of Recent Travel: Yes (traveled from [place]) Home Medications - Allergies Allergies/Adverse Reactions: Allergies Allergy/AdvReac Type Severity Reaction Status Date / Time Penicillins Allergy Swelling Verified 07/04/20 16:37 - Home Medications Home Medications: Ambulatory Orders Levothyroxine [Synthroid -] 25 mcg PO DAILY 04/15/17 Losartan/Hydrochlorothiazide [Losartan-Hctz 100-25 mg Tab] 1 each PO DAILY 04/15/17 Apixaban [Eliquis] 2.5 mg PO BID 06/11/19 levETIRAcetam [Keppra -] 750 mg PO BID 08/12/19 Albuterol 0.083% Nebulizer Prabha [Ventolin 0.083% Nebulizer Soln -] 1 amp NEB Q4H PRN amp 08/21/19 Montelukast Na [Singulair -] 10 mg PO HS #1 tablet 10/21/19 Pantoprazole Sodium [Protonix -] 40 mg PO DAILY 30 Days #30 tablet.ec 04/08/20 Albuterol Sulfate Inhaler - [Ventolin HFA Inhaler -] 2 puff IH Q4H PRN inhaler 05/20/20 Insulin (Levemir) [Levemir Vial] 8 units SQ HS units 05/20/20 Fluticasone/Salmeterol [Advair Hfa 115-21 Mcg Inhaler] 0 inh PO BID 06/22/20 Furosemide [Lasix] 40 mg PO DAILY 06/22/20 Insulin Aspart [Novolog] 8 unit SQ AM 06/22/20 Acetaminophen [Tylenol .Regular Strength -] 650 mg PO Q6H PRN tablet 07/08/20 Bacitracin - [Bacitracin Topical Ointment -] 1 applic TP BID #1 tube 07/08/20 Nystatin Powder [Nystop Powder -] 1 applic TP BID applic 07/08/20 levoFLOXacin [Levaquin -] 250 mg PO DAILY #5 tablet 07/08/20 Family Medical History Family Hx Cancer: Mother (Colon cancer), Sister (BCA) Review of Systems Findings/Remarks: Notes LLE pain with LBP, and B hand weakness. Denies eye/ ear pain, fevers, CP, SOB, abdominal pain or dysuria. Physical Exam Vital Signs: Vital Signs Temperature 98.1 F 07/09/20 08:50 Pulse Rate 101 H 07/09/20 08:50 Respiratory Rate 20 07/09/20 08:50 Blood Pressure 136/77 07/09/20 08:50 O2 Sat by Pulse Oximetry (%) 98 07/09/20 09:00 Musculoskeletal: Yes: Other (General: calm HF lying in bed NAD; 5-/5 BLE except for 3/5 L HF and 4/5 R KE; Pinprick Intact B lateral ankles but otherwise decreased BLE; no BLE pitting edema, no B calf tenderness) Labs: CBC, BMP 07/06/20 07:10 07/09/20 07:53 Imaging - Results MRI: Report Reviewed (MRI LS spine as per HPI) Assessment/Plan Electrodiagnostics were performed, please see scanned images (located on the date of admission 07/04/2020) for further details. This was an abnormal study. 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 7) Lumbar DDD/ DJD 8) L ear cellulitis 9) CHF, A fib, HTN 10) COPD 11) IDDM 12) Hypothyroidism 13) Up to date flu shot/ pneumovax 14) Obesity 15) E coli UTI Recommendations: 1) PT for stretching strengthening ROM and functional mobility 2) Falls, safety precautions 3) Cardiac, diabetic and seizure precautions 4) DVT ppx: on Eliquis 5) Skin protection: float heels, frequent turning 6) Nutrition consult for obesity 7) Continue plan per primary team 8) B cock-up wrist splints to be worn nightly for B CTS- she she expect to wear these x3 months 9) Discharge planning: to be discharged to home per family request Thank you for this referral.
[2020-07-09 15:50] VITALS: BP 154/70; PULSE 89; TEMP 97
== END 2020-07-09 17:06 | disposition home or self-care (01) | DRG 155 ==
LOC: JER 15:39 → JERBED 20:33 → J8W 07-05 19:03
PROVIDERS: ADMIT Internal Medicine; ATTEND Internal Medicine
DX: H60.12 Cellulitis of left external ear (principal); N39.0 Urinary tract infection, site not specified; I50.30 Unspecified diastolic (congestive) heart failure; N17.9 Acute kidney failure, unspecified; I48.91 Unspecified atrial fibrillation; E11.41 Type 2 diabetes mellitus with diabetic mononeuropathy; E03.9 Hypothyroidism, unspecified; R29.6 Repeated falls; I11.0 Hypertensive heart disease with heart failure; J44.9 Chronic obstructive pulmonary disease, unspecified; H60.92 Unspecified otitis externa, left ear; N28.1 Cyst of kidney, acquired; J32.9 Chronic sinusitis, unspecified; J45.909 Unspecified asthma, uncomplicated; I35.0 Nonrheumatic aortic (valve) stenosis; M54.16 Radiculopathy, lumbar region; G56.03 Carpal tunnel syndrome, bilateral upper limbs; E86.0 Dehydration; D72.829 Elevated white blood cell count, unspecified; G40.909 Epilepsy, unspecified, not intractable, without status epilepticus; E66.9 Obesity, unspecified; Z68.30 Body mass index [BMI] 30.0-30.9, adult; M51.37 Other intervertebral disc degeneration, lumbosacral region; H61.002 Unspecified perichondritis of left external ear; W18.39XA Other fall on same level, initial encounter; Y92.89 Other specified places as the place of occurrence of the external cause; Z87.11 Personal history of peptic ulcer disease; Z86.73 Personal history of transient ischemic attack (TIA), and cerebral infarction without residual deficits
CPT/HCPCS: 36415; 70450-TC; 72148-TC; 73562-TC-LT-FY; 76775-TC; 80053; 81003; 82962; 84443; 85025; 87040; 87086; 87186; 93005; 93010; 94640; 97116-GP; 97162-GP; 99285-25; C9803; Q2036; U0003

== ENCOUNTER 2020-08-29 08:58 | Emergency (ER) | payer BC, OTHER ==
[2020-08-29 09:34] VITALS: BMI 32.5
[2020-08-29 10:10] LABS: BASO % 0.8 % (0-2.0); EOS % 1.4 % (0-4.5); HEMATOCRIT 42.1 % (32.4-45.2); HEMOGLOBIN 13.5 GM/dL (10.7-15.3); LYMPH % 13.3 % (8-40); MCH 28.5 pg (25.7-33.7); MEAN PLT VOLUME 9.3 fl (7.5-11.1); MONO % 7.4 % (3.8-10.2); NEUT % 77.1 % (42.8-82.8); PLATELET COUNT 250 K/MM3 (134-434); RBC 4.73 M/mm3 (3.60-5.2); RDW 15.2 % (11.6-15.6); WHITE BLOOD COUNT 13.3 K/mm3 (4.0-10.0)
[2020-08-29] MEDS ORDERED: METOCLOPRAMIDE HCL 10 MG TABLET (FP) PO ONE ×2 (10:14→10:23)
[2020-08-29 10:28] LABS: CHLORIDE 105 mmol/L (98-107); POTASSIUM 4.5 mmol/L (3.5-5.1); SODIUM 140 mmol/L (136-145)
[2020-08-29 10:33] LABS: ALBUMIN 3.8 g/dl (3.4-5.0); ANION GAP 5 MMOL/L (8-16); BLOOD UREA NITROGEN 18.6 mg/dL (7-18); CALCIUM 9.1 mg/dL (8.5-10.1); CO2 30 mmol/L (21-32); GLUCOSE,RANDOM 97 mg/dL (74-106)
[2020-08-29 10:36] LABS: SGOT/AST 35 U/L (15-37); SGPT/ALT 19 U/L (13-61)
[2020-08-29 10:37] LABS: CREATININE 0.8 mg/dL (0.55-1.3)
[2020-08-29 10:38] LABS: BILIRUBIN,TOTAL 0.6 mg/dL (0.2-1); TOT PROT 7.1 g/dl (6.4-8.2)
[2020-08-29 10:39] LABS: ALK PHOS 96 U/L (45-117)
[2020-08-29 10:41] LABS: N-TERMINAL BNP 343.2 pg/ml (5-450)
[2020-08-29] MEDS ORDERED: diazePAM 2 MG TABLET PO ONE (11:48)
[2020-08-29] MEDS ORDERED: ACETAMINOPHEN 1000 MG/100 ML VIAL (NON FORMULARY) IVPB ONE (11:48)
[2020-08-29] MEDS ORDERED: SODIUM CHLORIDE 0.9% 1000 ML INFUS.BAG IV ONE (11:48)
[2020-08-29] MEDS ORDERED: diazePAM 5 MG TABLET ONE (12:02)
[2020-08-29] MEDS ORDERED: diazePAM 5 MG TABLET PO ONE (12:03)
[2020-08-29 12:51] LABS: EPI CELLS 12 /uL (0-25.1); HYALINE CASTS 0 /uL (0-3.1); PH,URINE 5.5 (5.0-8.0); URINE APPEARANCE CLEAR; URINE BACTERIA >9,000 /uL (0-1359); URINE BILIRUBIN NEGATIVE (NEGATIVE); URINE COLOR YELLOW; URINE GLUCOSE (UA) NEGATIVE (NEGATIVE); URINE KETONE NEGATIVE (NEGATIVE); URINE LEUK ESTERASE 1+ (NEGATIVE); URINE NITRITE POSITIVE (NEGATIVE); URINE PROTEIN NEGATIVE (NEGATIVE); URINE RBC 1 /uL (0-23.9); URINE UROBILINOGEN 0.2 mg/dL (0.2-1.0); URINE WBC 31 /uL (0-25.8)
[2020-08-29 13:16] VITALS: BP 113/60; PULSE 80; TEMP 97.7
== END 2020-08-29 16:23 | disposition home or self-care (01) ==
LOC: JER 08:58
PROC: 3E0333Z Introduction of Anti-inflammatory into Peripheral Vein, Percutaneous Approach (ICD-10-PCS; principal; 2020-08-29)
DX: G44.019 Episodic cluster headache, not intractable (principal); M79.10 Myalgia, unspecified site
CPT/HCPCS: 36415; 70450-TC; 71045-TC-FY; 80053; 81003; 83880; 84484; 85025; 87086; 87186; 93005; 93010; 99285-25

== ENCOUNTER 2020-09-29 23:50 | Emergency (ER) | payer BC, OTHER ==
[2020-09-30 00:03] VITALS: BMI 31.2
[2020-09-30] MEDS ORDERED: ACETAMINOPHEN 1000 MG/100 ML VIAL (NON FORMULARY) IVPB ONE (01:07)
[2020-09-30] MEDS ORDERED: LACTATED RINGERS SOLUTION 1000 ML INFUS.BAG IV ONE (01:07)
[2020-09-30] MEDS ORDERED: ACETAMINOPHEN INJECTION 100 ML IVPB ONE (01:41)
[2020-09-30 02:05] LABS: BASO % 0.7 % (0-2.0); EOS % 1.7 % (0-4.5); HEMATOCRIT 37.4 % (32.4-45.2); HEMOGLOBIN 12.3 GM/dL (10.7-15.3); LYMPH % 17.5 % (8-40); MCH 28.3 pg (25.7-33.7); MEAN CELL VOLUME 85.8 fl (80-96); MEAN PLT VOLUME 8.8 fl (7.5-11.1); NEUT % 71.1 % (42.8-82.8); PLATELET COUNT 244 K/MM3 (134-434); RBC 4.36 M/mm3 (3.60-5.2); RDW 15.3 % (11.6-15.6)
[2020-09-30 02:24] LABS: CHLORIDE 102 mmol/L (98-107); POTASSIUM 3.9 mmol/L (3.5-5.1); SODIUM 140 mmol/L (136-145)
[2020-09-30 02:26] LABS: CALCIUM 8.9 mg/dL (8.5-10.1)
[2020-09-30 02:27] LABS: ALBUMIN 3.5 g/dl (3.4-5.0); ANION GAP 7 MMOL/L (8-16); BLOOD UREA NITROGEN 16.2 mg/dL (7-18); CO2 31 mmol/L (21-32); GLUCOSE,RANDOM 113 mg/dL (74-106)
[2020-09-30 02:31] LABS: BILIRUBIN,TOTAL 0.4 mg/dL (0.2-1); LDH 232 U/L (84-246); SGOT/AST 19 U/L (15-37); SGPT/ALT 19 U/L (13-61); TOT PROT 6.3 g/dl (6.4-8.2)
[2020-09-30 02:32] LABS: ALK PHOS 83 U/L (45-117)
[2020-09-30 02:35] LABS: N-TERMINAL BNP 281.1 pg/ml (5-450)
[2020-09-30 06:44] VITALS: BP 123/76; TEMP 97.8
[2020-09-30 07:44] VITALS: PULSE 86
== END 2020-09-30 08:00 | disposition home or self-care (01) ==
LOC: JER 23:50
PROC: 3E033NZ Introduction of Analgesics, Hypnotics, Sedatives into Peripheral Vein, Percutaneous Approach (ICD-10-PCS; principal; 2020-09-30)
DX: R05 Cough (principal); M54.2 Cervicalgia
CPT/HCPCS: 36415; 71045-TC-FY; 80053; 82728; 83615; 83880; 84484; 85025; 85379; 86140; 93005; 93010; 99285-25; C9803; J0131; U0003

== ENCOUNTER 2020-10-27 07:26 | Observation (INO) | payer BC, OTHER ==
[2020-10-27 07:42] VITALS: BMI 30.4
[2020-10-27 08:32] LABS: BASO % 0.8 % (0-2.0); EOS % 2.5 % (0-4.5); HEMATOCRIT 38.9 % (32.4-45.2); HEMOGLOBIN 12.6 GM/dL (10.7-15.3); LYMPH % 19.4 % (8-40); MCH 27.7 pg (25.7-33.7); MCHC 32.3 g/dl (32.0-36.0); MEAN CELL VOLUME 85.5 fl (80-96); MONO % 9.9 % (3.8-10.2); NEUT % 67.4 % (42.8-82.8); PLATELET COUNT 221 K/MM3 (134-434); RBC 4.55 M/mm3 (3.60-5.2); WHITE BLOOD COUNT 10.5 K/mm3 (4.0-10.0)
[2020-10-27 08:48] LABS: INR 1.09 (0.83-1.09); PROTHROMBIN TIME (PATIENT) 13.1 SEC (9.7-13.0)
[2020-10-27 08:49] LABS: CALCIUM 8.7 mg/dL (8.5-10.1)
[2020-10-27 08:50] LABS: ALBUMIN 3.2 g/dl (3.4-5.0); BLOOD UREA NITROGEN 17.6 mg/dL (7-18)
[2020-10-27 08:53] LABS: CREATININE 0.8 mg/dL (0.55-1.3)
[2020-10-27 08:55] LABS: BILIRUBIN,TOTAL 0.5 mg/dL (0.2-1)
[2020-10-27 08:58] LABS: N-TERMINAL BNP 492.7 pg/ml (5-450)
[2020-10-27] MEDS ORDERED: LACTATED RINGERS SOLUTION 1000 ML INFUS.BAG IV ONE (10:53)
[2020-10-27] MEDS ORDERED: ACETAMINOPHEN 1000 MG/100 ML VIAL (NON FORMULARY) IVPB ONE (10:53)
[2020-10-27] MEDS ORDERED: ACETAMINOPHEN INJECTION 100 ML IVPB ONE (11:08)
[2020-10-27] MEDS ORDERED: ALBUTEROL SO4 HFA INHALER IH PRN (12:11)
[2020-10-27] MEDS ORDERED: ACETAMINOPHEN 325 MG TABLET (FP) PO PRN (12:11)
[2020-10-27] MEDS: INSULIN SLIDING SCALE (NOVOLOG) 1 VIAL SQ SCH (16:25)
[2020-10-27] MEDS: levETIRAcetam 500 MG TABLET (FP) PO SCH (21:52)
[2020-10-27] MEDS: APIXABAN 2.5 MG TABLET PO SCH (21:52)
[2020-10-27] MEDS: MONTELUKAST NA 10 MG TABLET PO SCH (21:52)
[2020-10-27] MEDS: CYCLOBENZAPRINE HCL 5 MG TABLET PO SCH (21:52)
[2020-10-27] MEDS: INSULIN (LEVEMIR) 100 UNITS/ML UNITS SQ SCH (21:59)
[2020-10-28] MEDS: INSULIN SLIDING SCALE (NOVOLOG) 1 VIAL SQ SCH ×2 (06:45→17:48)
[2020-10-28] MEDS: LEVOTHYROXINE NA 25 MCG TABLET (FP) PO SCH (06:49)
[2020-10-28 07:45] LABS: BASO % 0.8 % (0-2.0); EOS % 3.1 % (0-4.5); HEMATOCRIT 39.1 % (32.4-45.2); HEMOGLOBIN 12.7 GM/dL (10.7-15.3); LYMPH % 25.6 % (8-40); MCH 27.9 pg (25.7-33.7); MCHC 32.5 g/dl (32.0-36.0); MEAN CELL VOLUME 85.8 fl (80-96); MEAN PLT VOLUME 8.9 fl (7.5-11.1); MONO % 9.6 % (3.8-10.2); NEUT % 60.9 % (42.8-82.8); PLATELET COUNT 204 K/MM3 (134-434); RBC 4.56 M/mm3 (3.60-5.2); RDW 15.6 % (11.6-15.6); WHITE BLOOD COUNT 9.1 K/mm3 (4.0-10.0)
[2020-10-28 08:10] LABS: POTASSIUM 4.1 mmol/L (3.5-5.1)
[2020-10-28 08:14] LABS: CALCIUM 8.7 mg/dL (8.5-10.1)
[2020-10-28 08:15] LABS: ALBUMIN 2.9 g/dl (3.4-5.0); BLOOD UREA NITROGEN 16.2 mg/dL (7-18)
[2020-10-28 08:18] LABS: CREATININE 0.7 mg/dL (0.55-1.3)
[2020-10-28 08:19] LABS: BILIRUBIN,TOTAL 0.4 mg/dL (0.2-1); TOT PROT 5.5 g/dl (6.4-8.2)
[2020-10-28] MEDS: LOSARTAN POTASSIUM 50 MG TABLET PO SCH (09:54)
[2020-10-28] MEDS: HYDROCHLOROTHIAZIDE 25 MG TABLET (FP) PO SCH (09:54)
[2020-10-28] MEDS: PANTOPRAZOLE 40 MG TABLET PO SCH (09:54)
[2020-10-28] MEDS: APIXABAN 2.5 MG TABLET PO SCH ×2 (09:54→21:54)
[2020-10-28] MEDS: FUROSEMIDE 40 MG TABLET (FP) PO SCH (09:54)
[2020-10-28] MEDS: levETIRAcetam 500 MG TABLET (FP) PO SCH ×2 (09:55→21:54)
[2020-10-28] MEDS ORDERED: LOSARTAN POTASSIUM 25 MG TABLET PO SCH (10:00)
[2020-10-28] MEDS ORDERED: PATIENT'S OWN MEDICATION (NON-FORMULARY) (Losartan/Hydrochlorothiazide [Losartan-Hctz 100- PO SCH (10:00)
[2020-10-28] MEDS: CYCLOBENZAPRINE HCL 5 MG TABLET PO SCH (21:54)
[2020-10-28] MEDS: MONTELUKAST NA 10 MG TABLET PO SCH (21:54)
[2020-10-28] MEDS: INSULIN (LEVEMIR) 100 UNITS/ML UNITS SQ SCH (21:59)
[2020-10-29] MEDS: INSULIN SLIDING SCALE (NOVOLOG) 1 VIAL SQ SCH ×2 (06:50→21:05)
[2020-10-29] MEDS: LEVOTHYROXINE NA 25 MCG TABLET (FP) PO SCH (06:55)
[2020-10-29] MEDS: APIXABAN 2.5 MG TABLET PO SCH ×2 (09:52→20:51)
[2020-10-29] MEDS: LOSARTAN POTASSIUM 50 MG TABLET PO SCH (09:53)
[2020-10-29] MEDS: FUROSEMIDE 40 MG TABLET (FP) PO SCH (09:53)
[2020-10-29] MEDS: levETIRAcetam 500 MG TABLET (FP) PO SCH ×2 (09:53→20:52)
[2020-10-29] MEDS: PANTOPRAZOLE 40 MG TABLET PO SCH (09:53)
[2020-10-29] MEDS: HYDROCHLOROTHIAZIDE 25 MG TABLET (FP) PO SCH (09:53)
[2020-10-29 11:53] VITALS: BP 122/91; PULSE 87; TEMP 98.2
[2020-10-29] MEDS: INSULIN (LEVEMIR) 100 UNITS/ML UNITS SQ SCH (21:06)
[2020-10-29] MEDS: MONTELUKAST NA 10 MG TABLET PO SCH (21:06)
== END 2020-10-29 21:27 | disposition home or self-care (01) ==
LOC: JER 07:26 → JERBED 12:08 → J4W 16:23
PROVIDERS: ADMIT Internal Medicine; ATTEND Internal Medicine
PROC: 3E033NZ Introduction of Analgesics, Hypnotics, Sedatives into Peripheral Vein, Percutaneous Approach (ICD-10-PCS; principal; 2020-10-27)
PROC: 3E013VG Introduction of Insulin into Subcutaneous Tissue, Percutaneous Approach (ICD-10-PCS; 2020-10-27)
PROC: 3E0337Z Introduction of Electrolytic and Water Balance Substance into Peripheral Vein, Percutaneous Approach (ICD-10-PCS; 2020-10-27)
DX: R07.9 Chest pain, unspecified (principal); I48.0 Paroxysmal atrial fibrillation; I11.0 Hypertensive heart disease with heart failure; R06.02 Shortness of breath; I35.0 Nonrheumatic aortic (valve) stenosis; E11.9 Type 2 diabetes mellitus without complications; E03.9 Hypothyroidism, unspecified; M54.16 Radiculopathy, lumbar region; Z88.0 Allergy status to penicillin; Z99.81 Dependence on supplemental oxygen; Z79.01 Long term (current) use of anticoagulants; J45.909 Unspecified asthma, uncomplicated; R56.9 Unspecified convulsions; Z86.73 Personal history of transient ischemic attack (TIA), and cerebral infarction without residual deficits; K29.70 Gastritis, unspecified, without bleeding; E66.9 Obesity, unspecified; Z86.718 Personal history of other venous thrombosis and embolism; M19.90 Unspecified osteoarthritis, unspecified site; R42 Dizziness and giddiness; Z68.30 Body mass index [BMI] 30.0-30.9, adult; G47.30 Sleep apnea, unspecified; J32.9 Chronic sinusitis, unspecified; J18.9 Pneumonia, unspecified organism; Z79.4 Long term (current) use of insulin
CPT/HCPCS: 36415; 71045-TC-FY; 80053; 80061; 82550; 82962; 83721; 83880; 84439; 84443; 84484; 85025; 85610; 93005; 93010; 93970-TC; 96361; 96372; 96374; 97116-GP; 97161-GP; 99285-25; C9803; G0378; J0131; U0003

== ENCOUNTER 2020-11-27 21:33 | Inpatient (IN) | payer BC, OTHER ==
[2020-11-27 23:24] LABS: BASO % 1.1 % (0-2.0); EOS % 2.2 % (0-4.5); HEMATOCRIT 37.9 % (32.4-45.2); HEMOGLOBIN 12.4 GM/dL (10.7-15.3); LYMPH % 16.6 % (8-40); MCH 27.9 pg (25.7-33.7); MCHC 32.6 g/dl (32.0-36.0); MEAN CELL VOLUME 85.4 fl (80-96); MEAN PLT VOLUME 9.3 fl (7.5-11.1); MONO % 8.3 % (3.8-10.2); NEUT % 71.8 % (42.8-82.8); PLATELET COUNT 279 K/MM3 (134-434); RBC 4.44 M/mm3 (3.60-5.2); RDW 15.8 % (11.6-15.6); WHITE BLOOD COUNT 12.1 K/mm3 (4.0-10.0)
[2020-11-27 23:29] LABS: INR 1.07 (0.83-1.09); PROTHROMBIN TIME (PATIENT) 13.1 SEC (9.7-13.0)
[2020-11-27 23:32] LABS: ACTIVATED PTT 31.4 SECONDS (25.2-36.5)
[2020-11-27] MEDS ORDERED: methylPREDNISolone NA SUCC 125 MG/2 ML VIAL IVPUSH ONE (23:37)
[2020-11-27 23:53] LABS: CHLORIDE 110 mmol/L (98-107); POTASSIUM 4.6 mmol/L (3.5-5.1); SODIUM 141 mmol/L (136-145)
[2020-11-27 23:55] LABS: CALCIUM 9.1 mg/dL (8.5-10.1)
[2020-11-27] MEDS ORDERED: ALBUTEROL SO4 2.5/IPRATROPIUM 0.5 INH SOL 3 ML VIAL.NEB. NEB ONE (23:55)
[2020-11-27 23:56] LABS: ALBUMIN 3.5 g/dl (3.4-5.0); ANION GAP 5 MMOL/L (8-16); BLOOD UREA NITROGEN 21.2 mg/dL (7-18); CO2 26 mmol/L (21-32); GLUCOSE,RANDOM 123 mg/dL (74-106)
[2020-11-27] MEDS ORDERED: ALBUTEROL SO4 2.5/IPRATROPIUM 0.5 INH SOL 3 ML VIAL.NEB. NEB PRN (23:56)
[2020-11-27 23:58] LABS: SGPT/ALT 19 U/L (13-61)
[2020-11-27 23:59] LABS: CREATININE 0.8 mg/dL (0.55-1.3); SGOT/AST 29 U/L (15-37)
[2020-11-28] LABS: BILIRUBIN,TOTAL 0.4 mg/dL (0.2-1); TOT PROT 6.4 g/dl (6.4-8.2)
[2020-11-28 00:02] LABS: ALK PHOS 93 U/L (45-117)
[2020-11-28 00:04] LABS: N-TERMINAL BNP 283.3 pg/ml (5-450)
[2020-11-28] MEDS: ALBUTEROL SO4 2.5/IPRATROPIUM 0.5 INH SOL 3 ML VIAL.NEB. NEB SCH ×2 (00:04→00:05)
[2020-11-28] MEDS ORDERED: methylPREDNISolone NA SUCC 125 MG/2 ML VIAL ONE (00:42)
[2020-11-28] MEDS ORDERED: METOCLOPRAMIDE HCL INJECTION 10 MG/2 ML VIAL IVPB ONE (00:46)
[2020-11-28] MEDS ORDERED: ACETAMINOPHEN 1000 MG/100 ML VIAL (NON FORMULARY) IVPB ONE (00:46)
[2020-11-28] MEDS ORDERED: ACETAMINOPHEN INJECTION 100 ML IVPB ONE (00:48)
[2020-11-28] MEDS ORDERED: METOCLOPRAMIDE HCL INJECTION 10 MG/2 ML VIAL ONE (00:57)
[2020-11-28 04:55] LABS: VENOUS BASE EXCESS -2.3 mmol/L (-2-2); VENOUS O2 SATURATION 43.6 % (70-80); VENOUS PCO2 58.9 mmHg (38-52); VENOUS PH 7.26 (7.310-7.410)
[2020-11-28] MEDS ORDERED: ALBUTEROL SO4 0.083% IH SOL 2.5 MG/3 ML VIAL.NEB. NEB PRN (05:12)
[2020-11-28] MEDS ORDERED: LEVOTHYROXINE NA 25 MCG TABLET (FP) ONE (06:45)
[2020-11-28] MEDS: LEVOTHYROXINE NA 25 MCG TABLET (FP) PO SCH (06:51)
[2020-11-28] MEDS: INSULIN SLIDING SCALE (NOVOLOG) 1 VIAL SQ SCH ×4 (07:45→23:00)
[2020-11-28 11:20] LABS: BASO % 0.1 % (0-2.0); HEMOGLOBIN 12.5 GM/dL (10.7-15.3); MCH 27.7 pg (25.7-33.7); MCHC 32.1 g/dl (32.0-36.0); MEAN CELL VOLUME 86.2 fl (80-96); MONO % 0.5 % (3.8-10.2); NEUT % 95.4 % (42.8-82.8); PLATELET COUNT 252 K/MM3 (134-434); RBC 4.53 M/mm3 (3.60-5.2); RDW 15.9 % (11.6-15.6); WHITE BLOOD COUNT 10.2 K/mm3 (4.0-10.0)
[2020-11-28 11:52] LABS: POTASSIUM 5.7 mmol/L (3.5-5.1)
[2020-11-28 11:54] LABS: CALCIUM 9.8 mg/dL (8.5-10.1)
[2020-11-28 11:55] LABS: ALBUMIN 3.6 g/dl (3.4-5.0); BLOOD UREA NITROGEN 19.6 mg/dL (7-18)
[2020-11-28 11:57] LABS: CREATININE 1.1 mg/dL (0.55-1.3)
[2020-11-28 11:59] LABS: BILIRUBIN,TOTAL 0.3 mg/dL (0.2-1); TOT PROT 6.9 g/dl (6.4-8.2)
[2020-11-28] MEDS ORDERED: FUROSEMIDE 40 MG TABLET (FP) ONE (12:15)
[2020-11-28] MEDS ORDERED: methylPREDNISolone NA SUCC 40 MG/1 ML VIAL ONE ×2 (12:16→19:01)
[2020-11-28] MEDS ORDERED: levETIRAcetam 500 MG TABLET (FP) PO ONE ×2 (12:16→22:29)
[2020-11-28] MEDS ORDERED: APIXABAN 2.5 MG TABLET ONE ×2 (12:16→22:29)
[2020-11-28] MEDS: APIXABAN 2.5 MG TABLET PO SCH ×2 (12:28→22:33)
[2020-11-28] MEDS: FUROSEMIDE 40 MG TABLET (FP) PO SCH (12:28)
[2020-11-28] MEDS: levETIRAcetam 500 MG TABLET (FP) PO SCH ×2 (12:28→22:33)
[2020-11-28] MEDS: methylPREDNISolone NA SUCC 40 MG/1 ML VIAL IVPUSH SCH ×2 (12:28→19:09)
[2020-11-28 12:41] LABS: ANISOCYTOSIS 0; MACROCYTOSIS 0; PLATELET ESTIMATE NORMAL
[2020-11-28] MEDS ORDERED: ALBUTEROL SO4 HFA INHALER IH PRN (12:57)
[2020-11-28] MEDS: ALBUTEROL SO4 HFA INHALER IH SCH ×3 (14:30→22:33)
[2020-11-28] MEDS ORDERED: ALBUTEROL SO4 HFA INHALER IH ONE (19:01)
[2020-11-28] MEDS ORDERED: ACETAMINOPHEN 325 MG TABLET (FP) PO ONE (20:11)
[2020-11-28] MEDS ORDERED: ACETAMINOPHEN 325 MG TABLET (FP) ONE (22:29)
[2020-11-28] MEDS ORDERED: ATORVASTATIN CA 20 MG TABLET (FP) ONE (22:29)
[2020-11-28] MEDS ORDERED: MONTELUKAST NA 10 MG TABLET ONE (22:30)
[2020-11-28] MEDS: ATORVASTATIN CA 20 MG TABLET (FP) PO SCH (22:33)
[2020-11-28] MEDS: MONTELUKAST NA 10 MG TABLET PO SCH (22:33)
[2020-11-29 00:19] VITALS: BMI 30.1
[2020-11-29] MEDS: methylPREDNISolone NA SUCC 40 MG/1 ML VIAL IVPUSH SCH ×3 (01:48→17:48)
[2020-11-29] MEDS: LEVOTHYROXINE NA 25 MCG TABLET (FP) PO SCH (06:06)
[2020-11-29] MEDS: INSULIN SLIDING SCALE (NOVOLOG) 1 VIAL SQ SCH ×4 (06:06→21:33)
[2020-11-29] MEDS ORDERED: PT OWN MED DRAWER 7, Y5N ONE (10:12)
[2020-11-29] MEDS: levETIRAcetam 500 MG TABLET (FP) PO SCH ×2 (10:32→21:32)
[2020-11-29] MEDS: APIXABAN 2.5 MG TABLET PO SCH ×2 (10:32→21:32)
[2020-11-29] MEDS: FUROSEMIDE 40 MG TABLET (FP) PO SCH (10:32)
[2020-11-29] MEDS: ALBUTEROL SO4 HFA INHALER IH SCH ×4 (11:24→21:31)
[2020-11-29] MEDS: ACETAMINOPHEN 325 MG TABLET (FP) PO PRN ×2 (11:46→21:32)
[2020-11-29 11:56] LABS: BASO % 0.4 % (0-2.0); EOS % 0.1 % (0-4.5); HEMATOCRIT 37.8 % (32.4-45.2); LYMPH % 5.9 % (8-40); MCH 27.2 pg (25.7-33.7); MCHC 31.9 g/dl (32.0-36.0); MEAN CELL VOLUME 85.4 fl (80-96); MEAN PLT VOLUME 9.8 fl (7.5-11.1); MONO % 6.7 % (3.8-10.2); NEUT % 86.9 % (42.8-82.8); PLATELET COUNT 238 K/MM3 (134-434); RBC 4.42 M/mm3 (3.60-5.2); RDW 16.2 % (11.6-15.6)
[2020-11-29 12:20] LABS: POTASSIUM 4.5 mmol/L (3.5-5.1)
[2020-11-29 12:22] LABS: CALCIUM 9.2 mg/dL (8.5-10.1)
[2020-11-29 12:23] LABS: ALBUMIN 3.4 g/dl (3.4-5.0); BLOOD UREA NITROGEN 24.1 mg/dL (7-18)
[2020-11-29 12:26] LABS: CREATININE 0.9 mg/dL (0.55-1.3)
[2020-11-29 12:27] LABS: BILIRUBIN,TOTAL 0.3 mg/dL (0.2-1); TOT PROT 6.5 g/dl (6.4-8.2)
[2020-11-29] MEDS: FAMOTIDINE 20 MG TABLET PO SCH (13:25)
[2020-11-29] MEDS ORDERED: INSULIN (NOVOLOG) ASPART 100 UNITS/ML 10ML VIAL ONE (16:28)
[2020-11-29] MEDS: MONTELUKAST NA 10 MG TABLET PO SCH (21:31)
[2020-11-29] MEDS: ATORVASTATIN CA 20 MG TABLET (FP) PO SCH (21:31)
[2020-11-30] MEDS: methylPREDNISolone NA SUCC 40 MG/1 ML VIAL IVPUSH SCH ×3 (02:00→21:38)
[2020-11-30] MEDS: INSULIN SLIDING SCALE (NOVOLOG) 1 VIAL SQ SCH ×4 (06:31→21:35)
[2020-11-30] MEDS: LEVOTHYROXINE NA 25 MCG TABLET (FP) PO SCH (06:31)
[2020-11-30] MEDS: ALBUTEROL SO4 HFA INHALER IH SCH ×4 (09:24→21:41)
[2020-11-30] MEDS: levETIRAcetam 500 MG TABLET (FP) PO SCH ×2 (09:30→21:36)
[2020-11-30] MEDS ORDERED: PT OWN MED DRAWER 7, Y5N ONE (09:30)
[2020-11-30] MEDS: APIXABAN 2.5 MG TABLET PO SCH ×2 (09:30→21:36)
[2020-11-30] MEDS: FUROSEMIDE 40 MG TABLET (FP) PO SCH (09:31)
[2020-11-30] MEDS: LOSARTAN POTASSIUM 50 MG TABLET PO SCH (09:31)
[2020-11-30] MEDS: FAMOTIDINE 20 MG TABLET PO SCH (09:31)
[2020-11-30] MEDS: ATORVASTATIN CA 20 MG TABLET (FP) PO SCH (21:36)
[2020-11-30] MEDS: MONTELUKAST NA 10 MG TABLET PO SCH (21:36)
[2020-12-01] MEDS: INSULIN SLIDING SCALE (NOVOLOG) 1 VIAL SQ SCH ×4 (06:02→21:04)
[2020-12-01] MEDS: LEVOTHYROXINE NA 25 MCG TABLET (FP) PO SCH (06:03)
[2020-12-01] MEDS: APIXABAN 2.5 MG TABLET PO SCH ×2 (09:20→21:03)
[2020-12-01] MEDS: FUROSEMIDE 40 MG TABLET (FP) PO SCH (09:20)
[2020-12-01] MEDS: levETIRAcetam 500 MG TABLET (FP) PO SCH ×2 (09:20→21:03)
[2020-12-01] MEDS: FAMOTIDINE 20 MG TABLET PO SCH (09:21)
[2020-12-01] MEDS: LOSARTAN POTASSIUM 50 MG TABLET PO SCH (09:21)
[2020-12-01] MEDS: methylPREDNISolone NA SUCC 40 MG/1 ML VIAL IVPUSH SCH (09:21)
[2020-12-01] MEDS: ALBUTEROL SO4 HFA INHALER IH SCH ×4 (09:22→21:05)
[2020-12-01] MEDS: predniSONE 20 MG TABLET (UD) PO SCH (15:16)
[2020-12-01] MEDS: MONTELUKAST NA 10 MG TABLET PO SCH (21:03)
[2020-12-01] MEDS: ATORVASTATIN CA 20 MG TABLET (FP) PO SCH (21:03)
[2020-12-02] MEDS: INSULIN SLIDING SCALE (NOVOLOG) 1 VIAL SQ SCH ×3 (06:09→16:46)
[2020-12-02] MEDS: LEVOTHYROXINE NA 25 MCG TABLET (FP) PO SCH (06:09)
[2020-12-02] MEDS: FUROSEMIDE 40 MG TABLET (FP) PO SCH (09:23)
[2020-12-02] MEDS: levETIRAcetam 500 MG TABLET (FP) PO SCH (09:23)
[2020-12-02] MEDS: predniSONE 20 MG TABLET (UD) PO SCH (09:23)
[2020-12-02] MEDS: APIXABAN 2.5 MG TABLET PO SCH (09:24)
[2020-12-02] MEDS: FAMOTIDINE 20 MG TABLET PO SCH (09:24)
[2020-12-02] MEDS: LOSARTAN POTASSIUM 50 MG TABLET PO SCH (09:24)
[2020-12-02] MEDS: ALBUTEROL SO4 HFA INHALER IH SCH ×3 (09:32→17:45)
[2020-12-02 09:59] VITALS: PULSE 94
[2020-12-02] MEDS ORDERED: AZITHROMYCIN 250 MG TABLET PO ONE (10:21)
[2020-12-02 15:05] VITALS: BP 132/80; TEMP 98
== END 2020-12-02 18:35 | disposition home health service (06) | DRG 191 ==
LOC: JER 21:33 → JERBED 11-28 05:09 → J8W 11-28 23:22
PROVIDERS: ADMIT Internal Medicine; ATTEND Internal Medicine
DX: J44.1 Chronic obstructive pulmonary disease with (acute) exacerbation (principal); I50.30 Unspecified diastolic (congestive) heart failure; E78.5 Hyperlipidemia, unspecified; R42 Dizziness and giddiness; R07.89 Other chest pain; I11.0 Hypertensive heart disease with heart failure; I35.0 Nonrheumatic aortic (valve) stenosis; E03.9 Hypothyroidism, unspecified; G40.909 Epilepsy, unspecified, not intractable, without status epilepticus; K29.70 Gastritis, unspecified, without bleeding; I48.0 Paroxysmal atrial fibrillation; R29.6 Repeated falls; F41.9 Anxiety disorder, unspecified; R41.9 Unspecified symptoms and signs involving cognitive functions and awareness; M54.2 Cervicalgia; J32.9 Chronic sinusitis, unspecified; W18.30XA Fall on same level, unspecified, initial encounter; Y92.238 Other place in hospital as the place of occurrence of the external cause; E11.9 Type 2 diabetes mellitus without complications; R78.5 Finding of other psychotropic drug in blood; Z86.73 Personal history of transient ischemic attack (TIA), and cerebral infarction without residual deficits; Z88.0 Allergy status to penicillin; Z99.81 Dependence on supplemental oxygen; Z20.822 Contact with and (suspected) exposure to COVID-19
CPT/HCPCS: 36415; 70450-TC; 71045-TC-FY; 71275-TC; 72100-TC-FY; 80053; 80177; 82803; 82962; 83880; 84484; 85025; 85610; 85730; 87040; 93005; 93010; 99285-25; C9803; J0131; U0003

== ENCOUNTER 2021-02-07 07:38 | Observation (INO) | payer BC, OTHER ==
[2021-02-07] MEDS ORDERED: ONDANSETRON 4 MG/2 ML VIAL ONE (08:36)
[2021-02-07] MEDS ORDERED: METOCLOPRAMIDE HCL INJECTION 10 MG/2 ML VIAL IVPUSH ONE (08:44)
[2021-02-07] MEDS ORDERED: LACTATED RINGERS SOLUTION 1000 ML INFUS.BAG IV ONE (08:44)
[2021-02-07] MEDS ORDERED: METOCLOPRAMIDE HCL INJECTION 10 MG/2 ML VIAL ONE (09:00)
[2021-02-07 09:06] LABS: BASO % 0.9 % (0-2.0); EOS % 1.5 % (0-4.5); HEMATOCRIT 42.6 % (32.4-45.2); HEMOGLOBIN 13.6 GM/dL (10.7-15.3); LYMPH % 4.1 % (8-40); MCH 27.5 pg (25.7-33.7); MEAN PLT VOLUME 8.8 fl (7.5-11.1); MONO % 4.9 % (3.8-10.2); NEUT % 88.6 % (42.8-82.8); PLATELET COUNT 245 K/MM3 (134-434); RBC 4.95 M/mm3 (3.60-5.2); RDW 15.9 % (11.6-15.6); WHITE BLOOD COUNT 13.5 K/mm3 (4.0-10.0)
[2021-02-07] MEDS ORDERED: ALBUTEROL SO4 0.083% IH SOL 2.5 MG/3 ML VIAL.NEB. NEB ONE ×2 (09:28→09:43)
[2021-02-07 09:57] LABS: ALBUMIN 3.6 g/dl (3.4-5.0); BLOOD UREA NITROGEN 19.5 mg/dL (7-18); CALCIUM 8.6 mg/dL (8.5-10.1)
[2021-02-07 10:00] LABS: BILIRUBIN,TOTAL 0.5 mg/dL (0.2-1); CREATININE 0.8 mg/dL (0.55-1.3)
[2021-02-07 10:02] LABS: TOT PROT 6.6 g/dl (6.4-8.2)
[2021-02-07 12:06] LABS: URINE APPEARANCE CLEAR; URINE BILIRUBIN NEGATIVE (NEGATIVE); URINE COLOR YELLOW; URINE GLUCOSE (UA) NEGATIVE (NEGATIVE); URINE KETONE NEGATIVE (NEGATIVE); URINE LEUK ESTERASE NEGATIVE (NEGATIVE); URINE NITRITE NEGATIVE (NEGATIVE); URINE PROTEIN NEGATIVE (NEGATIVE); URINE UROBILINOGEN 0.2 mg/dL (0.2-1.0)
[2021-02-07] MEDS ORDERED: ALBUTEROL SO4 HFA INHALER IH PRN (15:25)
[2021-02-07] MEDS: D5-1/2NS+20 MEQ KCL - 20 MEQ/1,000 ML INFUS.BAG IV SCH (16:00)
[2021-02-07] MEDS ORDERED: MECLIZINE HCL 25 MG TABLET (FP) ONE (22:06)
[2021-02-07] MEDS ORDERED: levETIRAcetam 500 MG TABLET (FP) PO ONE (22:07)
[2021-02-07] MEDS ORDERED: APIXABAN 2.5 MG TABLET ONE (22:07)
[2021-02-07] MEDS ORDERED: MONTELUKAST NA 10 MG TABLET ONE (22:07)
[2021-02-07] MEDS: MECLIZINE HCL 25 MG TABLET (FP) PO SCH (22:08)
[2021-02-07] MEDS: MONTELUKAST NA 10 MG TABLET PO SCH (22:09)
[2021-02-07] MEDS: APIXABAN 2.5 MG TABLET PO SCH (22:09)
[2021-02-07] MEDS: levETIRAcetam 500 MG TABLET (FP) PO SCH (22:09)
[2021-02-07] MEDS: INSULIN (LEVEMIR) 100 UNITS/ML UNITS SQ SCH (22:23)
[2021-02-08 01:04] VITALS: BMI 27.8
[2021-02-08] MEDS: FLUTICASONE/SALMETEROL 100 MCG/50 MCG DISKUS IH SCH ×3 (02:01→21:02)
[2021-02-08] MEDS: MECLIZINE HCL 25 MG TABLET (FP) PO SCH ×3 (06:27→21:00)
[2021-02-08] MEDS: LEVOTHYROXINE NA 25 MCG TABLET (FP) PO SCH (06:28)
[2021-02-08 08:22] LABS: CALCIUM 8.2 mg/dL (8.5-10.1)
[2021-02-08 08:23] LABS: BLOOD UREA NITROGEN 7.6 mg/dL (7-18)
[2021-02-08 08:24] LABS: BASO % 0.4 % (0-2.0); EOS % 4.5 % (0-4.5); HEMOGLOBIN 12.6 GM/dL (10.7-15.3); LYMPH % 19.1 % (8-40); MCH 27.9 pg (25.7-33.7); MCHC 32.4 g/dl (32.0-36.0); MONO % 11.8 % (3.8-10.2); NEUT % 64.2 % (42.8-82.8); PLATELET COUNT 211 K/MM3 (134-434); RBC 4.54 M/mm3 (3.60-5.2); RDW 15.9 % (11.6-15.6); WHITE BLOOD COUNT 7.3 K/mm3 (4.0-10.0)
[2021-02-08 08:26] LABS: CREATININE 0.6 mg/dL (0.55-1.3)
[2021-02-08 08:27] LABS: BILIRUBIN,TOTAL 0.8 mg/dL (0.2-1); TOT PROT 5.3 g/dl (6.4-8.2)
[2021-02-08 08:38] LABS: ALBUMIN 2.7 g/dl (3.4-5.0)
[2021-02-08] MEDS: APIXABAN 2.5 MG TABLET PO SCH ×2 (09:42→21:00)
[2021-02-08] MEDS: levETIRAcetam 500 MG TABLET (FP) PO SCH ×2 (09:42→21:00)
[2021-02-08] MEDS: ACETAMINOPHEN 325 MG TABLET (FP) PO PRN ×2 (09:42→20:59)
[2021-02-08] MEDS ORDERED: PATIENT'S OWN MEDICATION (NON-FORMULARY) (Losartan/Hydrochlorothiazide [Losartan-Hctz 100- PO SCH (10:00)
[2021-02-08] MEDS ORDERED: PT OWN MED DRAWER 7, Y5N ONE ×3 (11:57→13:25)
[2021-02-08] MEDS: LOSARTAN 50MG/HCTZ 12.5MG 1 TAB PO SCH (13:31)
[2021-02-08] MEDS: D5-1/2NS+20 MEQ KCL - 20 MEQ/1,000 ML INFUS.BAG IV SCH (16:58)
[2021-02-08] MEDS ORDERED: INSULIN (NOVOLOG) ASPART 100 UNITS/ML 10ML VIAL ONE (20:21)
[2021-02-08] MEDS: INSULIN (LEVEMIR) 100 UNITS/ML UNITS SQ SCH (21:01)
[2021-02-08] MEDS: MONTELUKAST NA 10 MG TABLET PO SCH (21:01)
[2021-02-09] MEDS: D5-1/2NS+20 MEQ KCL - 20 MEQ/1,000 ML INFUS.BAG IV SCH ×2 (03:17→23:51)
[2021-02-09] MEDS: MECLIZINE HCL 25 MG TABLET (FP) PO SCH ×3 (05:27→21:12)
[2021-02-09] MEDS: LEVOTHYROXINE NA 25 MCG TABLET (FP) PO SCH (06:21)
[2021-02-09] MEDS ORDERED: PT OWN MED DRAWER 7, Y5N ONE ×2 (09:12→14:16)
[2021-02-09] MEDS: APIXABAN 2.5 MG TABLET PO SCH ×2 (09:13→21:13)
[2021-02-09] MEDS: FLUTICASONE/SALMETEROL 100 MCG/50 MCG DISKUS IH SCH ×2 (09:13→21:12)
[2021-02-09] MEDS: LOSARTAN 50MG/HCTZ 12.5MG 1 TAB PO SCH (09:13)
[2021-02-09] MEDS: levETIRAcetam 500 MG TABLET (FP) PO SCH ×2 (09:13→21:13)
[2021-02-09] MEDS: ACETAMINOPHEN 325 MG TABLET (FP) PO PRN (12:40)
[2021-02-09] MEDS: LIDOCAINE 5% TOPICAL PATCH TP SCH (14:31)
[2021-02-09] MEDS: MONTELUKAST NA 10 MG TABLET PO SCH (21:12)
[2021-02-09] MEDS: INSULIN (LEVEMIR) 100 UNITS/ML UNITS SQ SCH (21:20)
[2021-02-09] MEDS ORDERED: LIDOCAINE PATCH REMOVAL MC SCH (22:00)
[2021-02-10] MEDS: MECLIZINE HCL 25 MG TABLET (FP) PO SCH ×2 (05:29→13:03)
[2021-02-10] MEDS: LEVOTHYROXINE NA 25 MCG TABLET (FP) PO SCH (06:06)
[2021-02-10] MEDS: ALBUTEROL SO4 0.083% IH SOL 2.5 MG/3 ML VIAL.NEB. NEB PRN ×2 (08:15→11:58)
[2021-02-10] MEDS: FLUTICASONE/SALMETEROL 100 MCG/50 MCG DISKUS IH SCH (11:07)
[2021-02-10] MEDS: LOSARTAN 50MG/HCTZ 12.5MG 1 TAB PO SCH (11:07)
[2021-02-10] MEDS: levETIRAcetam 500 MG TABLET (FP) PO SCH (11:08)
[2021-02-10] MEDS: APIXABAN 2.5 MG TABLET PO SCH (11:08)
[2021-02-10] MEDS: LIDOCAINE 5% TOPICAL PATCH TP SCH (11:09)
[2021-02-10 13:05] VITALS: BP 122/68; PULSE 100; TEMP 98
== END 2021-02-10 14:01 | disposition home or self-care (01) ==
LOC: JER 07:38 → INTOOBSV 12:21 → JERBED 12:21 → J8W 23:42
PROVIDERS: ADMIT Internal Medicine; ATTEND Internal Medicine
PROC: 3E0F7GC Introduction of Other Therapeutic Substance into Respiratory Tract, Via Natural or Artificial Opening (ICD-10-PCS; principal; 2021-02-07)
PROC: 3E013VG Introduction of Insulin into Subcutaneous Tissue, Percutaneous Approach (ICD-10-PCS; 2021-02-07)
PROC: 3E033GC Introduction of Other Therapeutic Substance into Peripheral Vein, Percutaneous Approach (ICD-10-PCS; 2021-02-07)
PROC: 3E0337Z Introduction of Electrolytic and Water Balance Substance into Peripheral Vein, Percutaneous Approach (ICD-10-PCS; 2021-02-07)
DX: J44.9 Chronic obstructive pulmonary disease, unspecified (principal); R19.7 Diarrhea, unspecified; Z86.718 Personal history of other venous thrombosis and embolism; I10 Essential (primary) hypertension; E03.9 Hypothyroidism, unspecified
CPT/HCPCS: 36415; 70450-TC; 71045-TC-FY; 72040-TC; 74177-TC; 80053; 81003; 82150; 82533; 82550; 82962; 83605; 83690; 83735; 84443; 84484; 85025; 87040; 87045; 87046; 87086; 87324; 87449; 93005; 93010; 94640; 96361; 96372; 96374; 99285-25; C9803; G0378; Q9967; U0003; U0005

== ENCOUNTER 2021-03-03 09:46 | Emergency (ER) | payer BC, OTHER ==
[2021-03-03 10:11] VITALS: BMI 28.8
[2021-03-03] MEDS ORDERED: ACETAMINOPHEN 500 MG TABLET (FP) PO ONE ×2 (10:43→16:59)
[2021-03-03] MEDS ORDERED: ACETAMINOPHEN 325 MG TABLET (FP) ONE ×2 (11:23→17:00)
[2021-03-03 12:29] LABS: URINE APPEARANCE CLEAR; URINE BILIRUBIN NEGATIVE (NEGATIVE); URINE COLOR YELLOW; URINE GLUCOSE (UA) NEGATIVE (NEGATIVE); URINE KETONE NEGATIVE (NEGATIVE); URINE LEUK ESTERASE NEGATIVE (NEGATIVE); URINE NITRITE NEGATIVE (NEGATIVE); URINE PROTEIN NEGATIVE (NEGATIVE); URINE UROBILINOGEN 0.2 mg/dL (0.2-1.0)
[2021-03-03 13:36] LABS: BASO % 0.9 % (0-2.0); EOS % 4.3 % (0-4.5); HEMATOCRIT 38.5 % (32.4-45.2); HEMOGLOBIN 12.6 GM/dL (10.7-15.3); LYMPH % 22.4 % (8-40); MCHC 32.8 g/dl (32.0-36.0); MEAN CELL VOLUME 85.5 fl (80-96); MEAN PLT VOLUME 8.6 fl (7.5-11.1); NEUT % 61.4 % (42.8-82.8); PLATELET COUNT 217 K/MM3 (134-434); RDW 15.8 % (11.6-15.6)
[2021-03-03 14:05] LABS: ALBUMIN 3.3 g/dl (3.4-5.0); CALCIUM 9.4 mg/dL (8.5-10.1)
[2021-03-03 14:08] LABS: CREATININE 0.7 mg/dL (0.55-1.3)
[2021-03-03 14:10] LABS: BILIRUBIN,TOTAL 0.6 mg/dL (0.2-1); TOT PROT 6.2 g/dl (6.4-8.2)
[2021-03-03 14:14] LABS: BLOOD UREA NITROGEN 18.6 mg/dL (7-18)
[2021-03-03 18:24] VITALS: BP 110/64; PULSE 76; TEMP 98.3
== END 2021-03-03 18:40 | disposition home or self-care (01) ==
LOC: JER 09:46
DX: R51.9 Headache, unspecified (principal)
CPT/HCPCS: 36415; 70496-TC; 70498-TC; 71045-TC-FY; 80053; 81003; 85025; 87086; 93005; 93010; 99285-25; Q9967

== ENCOUNTER 2021-03-27 07:50 | Emergency (ER) | payer BC, OTHER ==
[2021-03-27 08:22] VITALS: TEMP 98.4; BMI 29.9
[2021-03-27 12:25] VITALS: BP 126/57; PULSE 87
== END 2021-03-27 13:25 | disposition home or self-care (01) ==
LOC: JER 07:50
DX: M79.605 Pain in left leg (principal); M19.90 Unspecified osteoarthritis, unspecified site
CPT/HCPCS: 73502-TC-LT-FY; 73552-TC-LT-FY; 73562-TC-LT-FY; 73610-TC-LT-FY; 99284-25

== ENCOUNTER 2021-04-08 11:56 | Emergency (ER) | payer BC, OTHER ==
[2021-04-08 12:06] VITALS: BP 131/74; PULSE 84; TEMP 96.9; BMI 29.2
[2021-04-08] MEDS ORDERED: ACETAMINOPHEN 500 MG TABLET (FP) PO ONE (12:59)
[2021-04-08] MEDS ORDERED: ACETAMINOPHEN 325 MG TABLET (FP) ONE (13:05)
[2021-04-08] MEDS ORDERED: ACETAMINOPHEN 325 MG TABLET (FP) PO ONE (13:07)
== END 2021-04-08 16:53 | disposition home or self-care (01) ==
LOC: JER 11:56
DX: S09.90XA Unspecified injury of head, initial encounter (principal)
CPT/HCPCS: 70450-TC; 72125-TC; 73523-TC-FY; 99285-25

== ENCOUNTER 2021-05-15 08:28 | Emergency (ER) | payer BC, OTHER ==
[2021-05-15 09:14] VITALS: BMI 29.8
[2021-05-15 09:25] VITALS: TEMP 98.5
[2021-05-15] MEDS ORDERED: ACETAMINOPHEN 325 MG TABLET (FP) PO ONE (10:02)
[2021-05-15] MEDS ORDERED: ACETAMINOPHEN 1000 MG/100 ML VIAL (NON FORMULARY) IVPB ONE (10:03)
[2021-05-15] MEDS ORDERED: ACETAMINOPHEN INJECTION 100 ML IVPB ONE (10:38)
[2021-05-15 11:44] LABS: BASO % 0.8 % (0-2.0); EOS % 3.1 % (0-4.5); HEMATOCRIT 37.3 % (32.4-45.2); HEMOGLOBIN 12.1 GM/dL (10.7-15.3); LYMPH % 16.4 % (8-40); MCH 27.8 pg (25.7-33.7); MCHC 32.6 g/dl (32.0-36.0); MEAN CELL VOLUME 85.2 fl (80-96); MEAN PLT VOLUME 9.3 fl (7.5-11.1); MONO % 5.8 % (3.8-10.2); NEUT % 73.9 % (42.8-82.8); PLATELET COUNT 220 10^3/uL (134-434); RBC 4.38 M/mm3 (3.60-5.2); RDW 15.3 % (11.6-15.6); WHITE BLOOD COUNT 9.3 K/mm3 (4.0-10.0)
[2021-05-15 11:59] LABS: CHLORIDE 105 mmol/L (98-107); SODIUM 131 mmol/L (136-145)
[2021-05-15 12:01] LABS: ALBUMIN 3.3 g/dl (3.4-5.0); BLOOD UREA NITROGEN 17.1 mg/dL (7-18); CO2 26 mmol/L (21-32); GLUCOSE,RANDOM 99 mg/dL (74-106)
[2021-05-15 12:04] LABS: CREATININE 0.9 mg/dL (0.55-1.3); SGOT/AST 82 U/L (15-37)
[2021-05-15 12:06] LABS: BILIRUBIN,TOTAL 0.5 mg/dL (0.2-1)
[2021-05-15 12:07] LABS: ALK PHOS 84 U/L (45-117)
[2021-05-15] MEDS ORDERED: LIDOCAINE 5% TOPICAL PATCH TP ONE (12:14)
[2021-05-15] MEDS ORDERED: LIDOCAINE 5% TOPICAL PATCH ONE (12:35)
[2021-05-15 12:36] LABS: ANION GAP -1 MMOL/L (8-16); SGPT/ALT 25 U/L (13-61)
[2021-05-15 13:55] LABS: CALCIUM 8.7 mg/dL (8.5-10.1)
[2021-05-15 13:56] LABS: ALBUMIN 3.3 g/dl (3.4-5.0); BLOOD UREA NITROGEN 17.3 mg/dL (7-18)
[2021-05-15 13:59] LABS: CREATININE 0.8 mg/dL (0.55-1.3)
[2021-05-15 14:00] LABS: BILIRUBIN,TOTAL 0.4 mg/dL (0.2-1)
[2021-05-15 16:04] VITALS: BP 131/67; PULSE 78
[2021-05-15] MEDS ORDERED: LIDOCAINE PATCH REMOVAL MC ONE (22:00)
== END 2021-05-15 16:50 | disposition home or self-care (01) ==
LOC: JER 08:28
PROC: 3E033GC Introduction of Other Therapeutic Substance into Peripheral Vein, Percutaneous Approach (ICD-10-PCS; principal; 2021-05-15)
DX: R07.89 Other chest pain (principal)
CPT/HCPCS: 36415; 71045-TC-FY; 80053; 82272; 82550; 82553; 84484; 85025; 93005; 93010; 99285-25; C9803; J0131; U0003; U0005